=== PATIENT | female | born 1970 | race Caucasian/White ===

== ENCOUNTER 2016-09-17 | Outpatient (CLI) | payer MEDICARE, MEDICAID | END 2016-09-17 17:58 | disposition home or self-care (01) | DX: T83.098A Other mechanical complication of other urinary catheter, initial encounter (principal) | CPT/HCPCS: A0425; A0428 ==

== ENCOUNTER 2016-09-17 | Outpatient (CLI) | payer MEDICARE, MEDICAID | END 2016-09-17 15:16 | disposition critical access hospital (66) | DX: T83.098A Other mechanical complication of other urinary catheter, initial encounter (principal) | CPT/HCPCS: A0425; A0429 ==

== ENCOUNTER 2016-09-17 15:36 | Emergency (ER) | payer MEDICARE, MEDICAID ==
[2016-09-17] MEDS ORDERED: LIDOCAINE JELLY 2% 5 ML TUBE TOP ONE (16:00)
== END 2016-09-17 17:53 | disposition home or self-care (01) ==
DX: T83.098A Other mechanical complication of other urinary catheter, initial encounter (principal); Y84.6 Urinary catheterization as the cause of abnormal reaction of the patient, or of later complication, without mention of misadventure at the time of the procedure; G80.9 Cerebral palsy, unspecified
CPT/HCPCS: 51702; 51705; 99283; J3490

== ENCOUNTER 2016-09-29 | Outpatient (CLI) | payer MEDICARE, MEDICAID | END 2016-09-29 12:19 | disposition critical access hospital (66) | CPT/HCPCS: A0425; A0429 ==

== ENCOUNTER 2016-09-29 | Outpatient (CLI) | payer MEDICARE, MEDICAID | END 2016-09-29 14:43 | disposition home or self-care (01) | CPT/HCPCS: A0425; A0428 ==

== ENCOUNTER 2016-09-29 12:39 | Emergency (ER) | payer MEDICARE, MEDICAID ==
[2016-09-29] MEDS ORDERED: HYOSCYAMINE SL 0.125 MG TABLET SL STA (13:43)
== END 2016-09-29 14:53 | disposition home or self-care (01) ==
DX: R32 Unspecified urinary incontinence (principal); Z93.50 Unspecified cystostomy status
CPT/HCPCS: 51700; 99283; A9270

== ENCOUNTER 2016-10-30 13:12 | Emergency (ER) | payer MEDICARE, MEDICAID ==
[2016-10-30] MEDS ORDERED: HYDROcod/ACETAM 5/325 MG TABLET ONE (13:33)
[2016-10-30] MEDS ORDERED: HYDROcod/ACETAM 5/325 MG TABLET PO STA (13:33)
== END 2016-10-30 13:40 | disposition home or self-care (01) ==
DX: M94.0 Chondrocostal junction syndrome [Tietze] (principal); R03.0 Elevated blood-pressure reading, without diagnosis of hypertension; G80.9 Cerebral palsy, unspecified; Z99.3 Dependence on wheelchair
CPT/HCPCS: 93005; 93010; 99283; 99284; A9270

== ENCOUNTER 2016-12-02 09:04 | Outpatient (CLI) | payer MEDICARE, MEDICAID | END 2016-12-02 09:05 | disposition EMS.NT | DX: Z03.89 Encounter for observation for other suspected diseases and conditions ruled out (principal); V00.811A Fall from moving wheelchair (powered), initial encounter; Y92.480 Sidewalk as the place of occurrence of the external cause ==

== ENCOUNTER 2017-03-16 21:08 | Outpatient (CLI) | payer MEDICARE, MEDICAID | END 2017-03-16 21:09 | disposition critical access hospital (66) | LOC: EMS 21:08 | PROVIDERS: ATTEND Surgery | DX: M79.89 Other specified soft tissue disorders (principal) | CPT/HCPCS: A0425; A0429 ==

== ENCOUNTER 2017-03-16 21:28 | Emergency (ER) | payer MEDICARE, MEDICAID ==
[2017-03-16 21:38] VITALS: BP 150/86
[2017-03-16] MEDS ORDERED: CEPHALEXIN 250 MG Prepack 8 PO ONE ×3 (22:00→22:11)
--- NOTE | 2017-03-16 22:03 | ED Physician Documentation ---
History of Present Illness - Stated complaint Stated Complaint: RLE RED - Chief complaint Chief Complaint: Ext Problem - History obtained from History obtained from: Patient - History of Present Illness Timing: Other (There is a red area to the right medial calf for the last 2 days that got worse today. No significant pain. No fevers or new chills. She would also like her suprapubic catheter changed.) Review of Systems Constitutional: denies: Fever, Chills Cardiac: denies: Chest pain / pressure, Palpitations Respiratory: denies: Dyspnea, Cough PD PAST MEDICAL HISTORY - Past Medical History Cardiovascular: None Respiratory: Asthma, Other Neuro: Cerebral palsy Endocrine/Autoimmune: Other GI: GERD STAVE INSPECTOR: None : Indwelling catheter HEENT: Chronic vision loss Psych: Anxiety Musculoskeletal: Osteoarthritis Derm: Psoriasis - Past Surgical History Past Surgical History: Yes General: EGD Ortho: Other /STAVE INSPECTOR: section, Hysterectomy - Present Medications Home Medications: Ambulatory Orders Medication Instructions Recorded Confirmed Aripiprazole [Abilify] 30 mg PO HS 04/27/13 03/16/17 Bupropion HCl [Wellbutrin Xl] 300 mg PO DAILY 04/27/13 03/16/17 Dexlansoprazole [Dexilant] 60 mg PO DAILY 04/27/13 03/16/17 Propranolol [Inderal] 20 mg PO TID 04/27/13 01/23/17 Enalapril [Vasotec] 5 mg ORAL DAILY 05/14/14 03/16/17 Baclofen 10 mg PO TID PRN 05/04/15 03/16/17 Hydrocortisone 1% Oint 1 gm TP TID #2 oint...g. 07/06/15 01/23/17 [Hydrocortisone] Nystatin Cream [Mycostatin Cream] 1 applic TOP BID PRN #60 g 12/30/15 01/23/17 tiZANidine [Zanaflex] 4 mg PO DAILY 04/09/16 01/23/17 Promethazine [Phenergan] 25 mg PO Q6H PRN #10 tab 05/01/16 01/23/17 Citalopram Hydrobromide [Celexa] 10 mg PO DAILY 08/22/16 03/16/17 Hyoscyamine Sulfate [Levsin-Sl] 0.125 mg SL Q6HR PRN #20 tab.subl 09/29/1601/23 Oxybutynin Chloride [Ditropan Xl] 10 mg PO DAILY 01/23/17 01/23/17 Quetiapine Fumarate [Seroquel Xr] 600 mg PO DAILY PM 01/23/17 01/23/17 Cephalexin [Keflex] 500 mg PO QID #40 capsule 03/16/17 oxyCODONE/ACET 5/325 [Percocet 5 1 tab PO PRN PRN MDD 4 03/16/17 03/16/17 mg/325 mg] - Allergies Allergies/Adverse Reactions: Allergies Allergy/AdvReac Type Severity Reaction Status Date / Time paroxetine HCl * [From Paxil] AdvReac Intermediate Emesis Verified 01/23/17 17: 49 codeine [Codeine] AdvReac Pass Out Verified 01/23/17 17:49 - Social History Does the pt smoke?: No Smoking Status: Never smoker Does the pt drink ETOH?: No Does the pt have substance abuse?: No - Immunizations Immunizations are current?: Yes - POLST Patient has POLST: No PD ED PE NORMAL - Vitals Vital signs reviewed: Yes - General General: Alert and oriented X 3, No acute distress - Abdomen Abdomen: Soft, Non tender - Extremities Extremities: Other (Well-circumscribed area of cellulitis to the right medial calf without calf tenderness. It is consistent with cellulitis, not DVT.) - Neuro Neuro: Alert and oriented X 3, Normal speech - Psych Psych: Normal mood, Normal affect Results - Vitals Vitals: Vital Signs - 24 hr 03/16/17 21:36 Temperature 36.6 C Heart Rate 89 Respiratory 18 Rate Blood Pressure 150/86 H O2 Saturation 98 Oxygen O2 Source Room air Procedures - General procedure General procedure: At the patient's request I personally changed her suprapubic catheter using a similar 18 Mohawk catheter with lidocaine jelly which flushed and drained easily. Departure - Departure Disposition: 01 Home, Self Care Clinical Impression: Chronic indwelling Epps catheter Cellulitis Qualifiers: Site of cellulitis: extremity Site of cellulitis of extremity: lower extremity Laterality: right Qualified Code(s): L03.115 - Cellulitis of right lower limb Condition: Good Record reviewed to determine appropriate education?: Yes Instructions: Cellulitis Dc Prescriptions: Cephalexin [Keflex] 500 mg PO QID #40 capsule Comments: Call your doctor to arrange a follow-up appointment, make the next available appointment. In the interim, return anytime if worse or if new symptoms develop. Your blood pressure was elevated today on check into the emergency department. This does not mean that you have hypertension, it is a common phenomenon to come to the emergency department and have elevated blood pressure. I recommend that she see her primary care physician within the week to have it rechecked when you are feeling better.
[2017-03-16] MEDS ORDERED: LIDOCAINE JELLY 2% 5 ML TUBE TOP ONE (22:31)
== END 2017-03-16 23:20 | disposition home or self-care (01) ==
LOC: EDUNIT# → ED 21:28
DX: L03.115 Cellulitis of right lower limb (principal); R03.0 Elevated blood-pressure reading, without diagnosis of hypertension; J45.909 Unspecified asthma, uncomplicated; G80.9 Cerebral palsy, unspecified; K21.9 Gastro-esophageal reflux disease without esophagitis; M19.90 Unspecified osteoarthritis, unspecified site; Z93.50 Unspecified cystostomy status
CPT/HCPCS: 51705; 99283; J3490

== ENCOUNTER 2017-03-16 23:42 | Outpatient (CLI) | payer MEDICARE, MEDICAID | END 2017-03-16 23:43 | disposition home or self-care (01) | LOC: EMS 23:42 | PROVIDERS: ATTEND Surgery | DX: L03.115 Cellulitis of right lower limb (principal) | CPT/HCPCS: A0425; A0428 ==

== ENCOUNTER 2017-07-14 08:00 | Outpatient (CLI) | payer MEDICARE, MEDICAID | END 2017-07-14 08:01 | disposition home or self-care (01) | LOC: LAB.N 08:00 | PROVIDERS: ATTEND Nurse Practitioner Gerontology | DX: Z53.9 Procedure and treatment not carried out, unspecified reason (principal) | CPT/HCPCS: 36415; 80053; 85025 ==

== ENCOUNTER 2017-07-22 12:33 | Outpatient (CLI) | payer MEDICARE, MEDICAID ==
[2017-07-22 12:47] LABS: BASOPHILS # (AUTO) 0.1 10^3/uL (0.0-0.1); BASOPHILS % (AUTO) 0.8 %; EOSINOPHILS # (AUTO) 0.2 10^3/uL (0.0-0.7); EOSINOPHILS % (AUTO) 2.3 %; HCT - HEMATOCRIT 30.5 % (37.0-47.0); HGB - HEMOGLOBIN 9.6 g/dL (12.0-16.0); LYMPHOCYTES # (AUTO) 1.2 10^3/uL (1.5-3.5); MEAN CORPUSCULAR HEMOGLOBIN 22.6 pg (27.0-31.0); MEAN CORPUSCULAR HGB CONC 31.5 g/dL (32.0-36.0); MEAN CORPUSCULAR VOLUME 71.6 fL (81.0-99.0); MEAN PLATELET VOLUME 8.1 fL (7.9-10.8); MONOCYTES # (AUTO) 0.8 10^3/uL (0.0-1.0); MONOCYTES % (AUTO) 11.4 %; NEUTROPHILS # (AUTO) 4.6 10^3/uL (1.5-6.6); NEUTROPHILS % (AUTO) 67.5 %; RED BLOOD COUNT 4.26 10^6/uL (4.20-5.40); RED CELL DISTRIBUTION WIDTH 17.1 % (12.0-15.0); UNCORRECTED WHITE BLOOD COUNT 6.8 x10^3/uL; WHITE BLOOD COUNT 6.8 x10^3/uL (4.8-10.8)
[2017-07-22 13:00] LABS: ALBUMIN/GLOBULIN RATIO 0.9 (1.0-2.2); BILIRUBIN,TOTAL 0.3 mg/dL (0.2-1.0); CALCIUM 8.8 mg/dL (8.5-10.3); CREATININE 0.7 mg/dL (0.4-1.0); POTASSIUM 4.2 mmol/L (3.5-5.0); TOTAL PROTEIN 7.3 g/dL (6.7-8.2)
== END 2017-07-22 12:34 | disposition home or self-care (01) ==
LOC: LAB 12:33
PROVIDERS: ATTEND Nurse Practitioner Gerontology
DX: N39.0 Urinary tract infection, site not specified (principal)
CPT/HCPCS: 36415; 80053; 85025

== ENCOUNTER 2017-11-12 09:17 | Outpatient (CLI) | payer MEDICARE, MEDICAID | END 2017-11-12 09:18 | disposition critical access hospital (66) | LOC: EMS 09:17 | PROVIDERS: ATTEND Surgery | DX: T83.038A Leakage of other urinary catheter, initial encounter (principal) | CPT/HCPCS: A0425; A0429 ==

== ENCOUNTER 2017-11-12 09:39 | Emergency (ER) | payer MEDICARE, MEDICAID ==
--- NOTE | 2017-11-12 09:45 | ED Physician Documentation ---
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 and so not to do UA - as she is asymptomatic that seems reasonable Review of Systems Constitutional: denies: Fever, Chills GI: denies: Abdominal Pain : reports: Other (cath wont drain) Musculoskeletal: denies: Back pain PD PAST MEDICAL HISTORY - Past Medical History Cardiovascular: None Respiratory: Asthma, Other Neuro: Cerebral palsy Endocrine/Autoimmune: Other GI: GERD 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 : Indwelling catheter HEENT: Chronic vision loss Psych: Anxiety Musculoskeletal: Osteoarthritis Derm: Psoriasis - Past Surgical History Past Surgical History: Yes General: EGD Ortho: Other /SECURITY BUSINESS ANALYST: section, Hysterectomy - Present Medications Home Medications: Ambulatory Orders Medication Instructions Recorded Confirmed Dexlansoprazole [Dexilant] 60 mg PO DAILY 04/27/13 08/28/17 Propranolol [Inderal] 20 mg PO TID 04/27/13 08/28/17 Enalapril [Vasotec] 5 mg ORAL DAILY 05/14/14 08/28/17 Nystatin Cream [Mycostatin Cream] 1 applic TOP BID PRN #60 g 12/30/15 08/28/17 Citalopram Hydrobromide [Celexa] 10 mg PO DAILY 08/22/16 08/28/17 Hyoscyamine Sulfate [Levsin-Sl] 0.125 mg SL Q6HR PRN #20 tab.subl 09/29/1608/28 Oxybutynin Chloride [Ditropan Xl] 10 mg PO DAILY 01/23/17 08/28/17 Quetiapine Fumarate [Seroquel Xr] 300 mg PO DAILY PM 01/23/17 08/28/17 oxyCODONE/ACET 5/325 [Percocet 5 1 tab PO PRN PRN MDD 4 03/16/17 08/28/17 mg/325 mg] Nystatin 1 drops TOP BID PRN 05/08/17 08/28/17 Zolpidem Tartrate [Ambien] 10 mg PO QPM PRN 06/05/17 08/28/17 Topiramate 25 mg PO BID 07/31/17 08/28/17 Zolpidem [Ambien] 1 tab ORAL DAILY 07/31/17 08/28/17 Aripiprazole [Abilify] 20 mg PO DAILY 08/28/17 08/28/17 Hydrocortisone 1% Oint 1 gm TP TID PRN 08/28/17 08/28/17 [Hydrocortisone] buPROPion [Wellbutrin Sr] 150 mg PO BID 08/28/17 08/28/17 Nystatin Cream [Mycostatin Cream] 1 applic TOP BID #60 g 11/12/17 - Allergies Allergies/Adverse Reactions: Allergies Allergy/AdvReac Type Severity Reaction Status Date / Time paroxetine HCl * [From Paxil] AdvReac Intermediate Emesis Verified 01/23/17 17: 49 codeine [Codeine] AdvReac Pass Out Verified 01/23/17 17:49 - Social History Does the pt smoke?: No Smoking Status: Never smoker Does the pt drink ETOH?: No Does the pt have substance abuse?: No - Immunizations Immunizations are current?: Yes - POLST Patient has POLST: No PD ED PE NORMAL - Vitals Vital signs reviewed: Yes - Cardiac Cardiac: RRR - Respiratory Respiratory: No respiratory distress, Clear bilaterally - Abdomen Abdomen: Non tender, Other (no infection around site, urine leaking around) Results - Vitals Vitals: Vital Signs - 24 hr 11/12/17 09:39 Temperature 36.5 C Heart Rate 82 Respiratory 17 Rate Blood Pressure 142/82 H O2 Saturation 97 Oxygen O2 Source Room air PD MEDICAL DECISION MAKING - ED course ED course: cath changed s diff needs BLS transport as she is unable to transfer or sit in a regular wheelchair - per caregiver has a motorized reclining wheelchair at home but cannot sit unassisted - form completed at time of dc pt req refill rx for nystatin cream which was given Departure - Departure Disposition: Home, Self Care Clinical Impression: Urinary catheter change required Condition: Good Instructions: Catheter Suprapubic Care Dc Prescriptions: Nystatin Cream [Mycostatin Cream] 1 applic TOP BID #60 g
[2017-11-12 09:53] VITALS: BP 142/82
[2017-11-12] MEDS ORDERED: LIDOCAINE 2% URO-JET 5 ML SYRINGE UR STA (10:25)
== END 2017-11-12 13:31 | disposition home or self-care (01) ==
LOC: EDUNIT# → ED 09:39
DX: T83.031A Leakage of indwelling urethral catheter, initial encounter (principal); G80.9 Cerebral palsy, unspecified
CPT/HCPCS: 51702; 99283

== ENCOUNTER 2017-11-12 13:33 | Outpatient (CLI) | payer MEDICARE, MEDICAID | END 2017-11-12 13:34 | disposition home or self-care (01) | LOC: EMS 13:33 | PROVIDERS: ATTEND Surgery | DX: G80.9 Cerebral palsy, unspecified (principal) | CPT/HCPCS: A0425; A0428 ==

== ENCOUNTER 2018-02-02 | Outpatient (CLI) | END 2018-02-02 14:35 | disposition home or self-care (01) | CPT/HCPCS: A0425; A0428 ==

== ENCOUNTER 2018-02-02 | Outpatient (CLI) | END 2018-02-02 11:13 | disposition critical access hospital (66) | CPT/HCPCS: A0425; A0429 ==

== ENCOUNTER 2018-02-02 11:35 | Emergency (ER) | payer MEDICARE, MEDICAID ==
[2018-02-02 11:41] VITALS: BP 125/75
--- NOTE | 2018-02-02 12:15 | ED Physician Documentation ---
PD HPI LOWER EXT INJURY - Stated complaint Stated Complaint: LEG BRUISE - Chief complaint Chief Complaint: Ext Problem - History obtained from History obtained from: Patient, Caregiver - History of Present Illness PD HPI LOW EXT INJURY LOCATION: Left, Thigh (caregivers noted bruising of posterior left thigh today. No noted injury. She does require lifts and caregiver rolls for movement so is held on thighs often. She has some pain in legs commonl and has wraps and ankle braces. She has started some physical therapy recently to try to get leg/core strength improved.) Type of injury: Other (no noted injury) Where injury occurred: Home Timing - onset: Today (brusing just noted today) Timing - details: Abrupt onset Worsened by: No: Palpating Associated symptoms: Discolored. 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 : Indwelling catheter HEENT: Chronic vision loss Psych: Anxiety Musculoskeletal: Osteoarthritis Derm: Psoriasis - Past Surgical History Past Surgical History: Yes General: EGD Ortho: Other /TRANSPLANT REGISTERED NURSE: section, Hysterectomy - Present Medications Home Medications: Ambulatory Orders Medication Instructions Recorded Confirmed Dexlansoprazole [Dexilant] 60 mg PO DAILY 04/27/13 08/28/17 Propranolol [Inderal] 20 mg PO TID 04/27/13 08/28/17 Enalapril [Vasotec] 5 mg ORAL DAILY 05/14/14 08/28/17 Nystatin Cream [Mycostatin Cream] 1 applic TOP BID PRN #60 g 12/30/15 08/28/17 Citalopram Hydrobromide [Celexa] 10 mg PO DAILY 08/22/16 08/28/17 Hyoscyamine Sulfate [Levsin-Sl] 0.125 mg SL Q6HR PRN #20 tab.subl 09/29/1608/28 Oxybutynin Chloride [Ditropan Xl] 10 mg PO DAILY 01/23/17 08/28/17 Quetiapine Fumarate [Seroquel Xr] 300 mg PO DAILY PM 01/23/17 08/28/17 oxyCODONE/ACET 5/325 [Percocet 5 1 tab PO PRN PRN MDD 4 03/16/17 08/28/17 mg/325 mg] Nystatin 1 drops TOP BID PRN 05/08/17 08/28/17 Zolpidem Tartrate [Ambien] 10 mg PO QPM PRN 06/05/17 08/28/17 Topiramate 25 mg PO BID 07/31/17 08/28/17 Zolpidem [Ambien] 1 tab ORAL DAILY 07/31/17 08/28/17 Aripiprazole [Abilify] 20 mg PO DAILY 08/28/17 08/28/17 Hydrocortisone 1% Oint 1 gm TP TID PRN 08/28/17 08/28/17 [Hydrocortisone] buPROPion [Wellbutrin Sr] 150 mg PO BID 08/28/17 08/28/17 Nystatin Cream [Mycostatin Cream] 1 applic TOP BID #60 g 11/12/17 - Allergies Allergies/Adverse Reactions: Allergies Allergy/AdvReac Type Severity Reaction Status Date / Time paroxetine HCl * [From Paxil] AdvReac Intermediate Emesis Verified 01/23/17 17: 49 codeine [Codeine] AdvReac Pass Out Verified 01/23/17 17:49 - Social History Does the pt smoke?: No Smoking Status: Never smoker Does the pt drink ETOH?: No Does the pt have substance abuse?: No - Immunizations Immunizations are current?: Yes - POLST Patient has POLST: No PD ED PE NORMAL - Vitals Vital signs reviewed: Yes - General General: Alert and oriented X 3, No acute distress, Well developed/nourished - HEENT HEENT: Atraumatic, Pharynx benign - Neck Neck: Supple, no meningeal sign, No adenopathy - Cardiac Cardiac: RRR, No murmur - Respiratory Respiratory: Clear bilaterally - Abdomen Abdomen: Soft, Non tender - Derm Derm: Normal color, Warm and dry - Extremities Extremities: Other (left posterior thigh with faint to moderate colored bruising mid thigh to gluteal area. Not tender. No noted sores/lesions. ) - Neuro Neuro: Other (general body deconditioning. ) Results - Vitals Vitals: Oxygen O2 Source Room air PD MEDICAL DECISION MAKING - ED course Complexity details: considered differential (the bruising in back of thigh looks soft tissue injury, likely deeper and is now leeching to the surface ( dependently down). She mentioned blood clots and I don't have high suspicion for DVT. Suggested US to evaluate, but she did not want to have her leg wraps removed, as is difficult to have them redone. I feel that is okay, given the low suspicion. ), d/w patient - Sepsis Event Vital Signs: Oxygen O2 Source Room air Departure - Departure Disposition: Home, Self Care Clinical Impression: Superficial bruising of thigh Qualifiers: Encounter type: initial encounter Laterality: left Qualified Code(s): S70.12XA - Contusion of left thigh, initial encounter Condition: Stable Record reviewed to determine appropriate education?: Yes Instructions: ED Contusion Soft Tissue Follow-Up: Errol Marion MD [Primary Care Provider] - Comments: The bruising showing up in the back of the thigh could have been from minor injury with a broken blood vessel even deeper within the muscle that migrated to the surface and showed up now. The injury could have been even a few days ago. It does not look dangerous or problematic. It should gradually resolve over several days to week. It could potentially get slightly darker colored as more blood comes to the surface. Recheck if increasing pain, tenderness, swelling of the leg. Normal activity and therapy/exercise are good as long as nothing is hurting more than usual. Discharge Date/Time: 02/02/18 15:00
== END 2018-02-02 15:00 | disposition home or self-care (01) ==
LOC: ED 11:35
DX: S70.12XA Contusion of left thigh, initial encounter (principal); Z74.01 Bed confinement status
CPT/HCPCS: 99282; 99283

== ENCOUNTER 2018-03-26 17:59 | Outpatient (CLI) | payer MEDICARE, MEDICAID | END 2018-03-26 18:00 | disposition critical access hospital (66) | LOC: EMS 17:59 | PROVIDERS: ATTEND Surgery | DX: T83.018A Breakdown (mechanical) of other urinary catheter, initial encounter (principal) | CPT/HCPCS: A0425; A0429 ==

== ENCOUNTER 2018-03-26 18:20 | Emergency (ER) | payer MEDICARE, MEDICAID ==
--- NOTE | 2018-03-26 19:22 | ED Physician Documentation ---
History of Present Illness - Stated complaint Stated Complaint: BLOCKED CATHETER - Chief complaint Chief Complaint: General - History obtained from History obtained from: Patient - History of Present Illness Timing: Today (She has a neurogenic bladder. She frequently has her catheter become blocked, the current one is 3 weeks old and it stopped working. 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 : Indwelling catheter HEENT: Chronic vision loss Psych: Anxiety Musculoskeletal: Osteoarthritis Derm: Psoriasis - Past Surgical History Past Surgical History: Yes General: EGD Ortho: Other /FILM EDITOR: section, Hysterectomy - Present Medications Home Medications: Ambulatory Orders Medication Instructions Recorded Confirmed Dexlansoprazole [Dexilant] 60 mg PO DAILY 04/27/13 08/28/17 Propranolol [Inderal] 20 mg PO TID 04/27/13 08/28/17 Enalapril [Vasotec] 5 mg ORAL DAILY 05/14/14 08/28/17 Nystatin Cream [Mycostatin Cream] 1 applic TOP BID PRN #60 g 12/30/15 08/28/17 Citalopram Hydrobromide [Celexa] 10 mg PO DAILY 08/22/16 08/28/17 Hyoscyamine Sulfate [Levsin-Sl] 0.125 mg SL Q6HR PRN #20 tab.subl 09/29/1608/28 Oxybutynin Chloride [Ditropan Xl] 10 mg PO DAILY 01/23/17 08/28/17 Quetiapine Fumarate [Seroquel Xr] 300 mg PO DAILY PM 01/23/17 08/28/17 oxyCODONE/ACET 5/325 [Percocet 5 1 tab PO PRN PRN MDD 4 03/16/17 08/28/17 mg/325 mg] Nystatin 1 drops TOP BID PRN 05/08/17 08/28/17 Zolpidem Tartrate [Ambien] 10 mg PO QPM PRN 06/05/17 08/28/17 Topiramate 25 mg PO BID 07/31/17 08/28/17 Zolpidem [Ambien] 1 tab ORAL DAILY 07/31/17 08/28/17 Aripiprazole [Abilify] 20 mg PO DAILY 08/28/17 08/28/17 Hydrocortisone 1% Oint 1 gm TP TID PRN 08/28/17 08/28/17 [Hydrocortisone] buPROPion [Wellbutrin Sr] 150 mg PO BID 08/28/17 08/28/17 Nystatin Cream [Mycostatin Cream] 1 applic TOP BID #60 g 11/12/17 - Allergies Allergies/Adverse Reactions: Allergies Allergy/AdvReac Type Severity Reaction Status Date / Time paroxetine HCl * [From Paxil] AdvReac Intermediate Emesis Verified 01/23/17 17: 49 codeine [Codeine] AdvReac Pass Out Verified 01/23/17 17:49 - Social History Does the pt smoke?: No Smoking Status: Never smoker Does the pt drink ETOH?: No Does the pt have substance abuse?: No - Immunizations Immunizations are current?: Yes - POLST Patient has POLST: No PD ED PE NORMAL - Vitals Vital signs reviewed: Yes - General General: Alert and oriented X 3, No acute distress - Abdomen Abdomen: Normal bowel sounds, Soft, Non tender - Neuro Neuro: Alert and oriented X 3, Normal speech Results - Vitals Vitals: Vital Signs - 24 hr 03/26/18 18:38 Temperature 36.6 C Heart Rate 90 Respiratory 18 Rate Blood Pressure 129/83 H O2 Saturation 100 Oxygen O2 Source Room air PD MEDICAL DECISION MAKING - Sepsis Event Vital Signs: Vital Signs - 24 hr 03/26/18 18:38 Temperature 36.6 C Heart Rate 90 Respiratory 18 Rate Blood Pressure 129/83 H O2 Saturation 100 Oxygen O2 Source Room air Departure - Departure Disposition: 01 Home, Self Care Clinical Impression: Chronic indwelling Epps catheter Epps catheter problem Qualifiers: Encounter type: initial encounter Qualified Code(s): T83.9XXA - Unspecified complication of genitourinary prosthetic device, implant and graft, initial encounter Condition: Good Record reviewed to determine appropriate education?: Yes Instructions: ED Catheter Care Epps
[2018-03-26] MEDS ORDERED: NYSTATIN CREAM 15 GM TUBE TOP ONE (19:31)
[2018-03-26] MEDS ORDERED: LIDOCAINE 2% URO-JET 5 ML SYRINGE UR STA (19:39)
[2018-03-26 20:39] VITALS: BP 128/83
== END 2018-03-26 21:01 | disposition home or self-care (01) ==
LOC: EDUNIT# → ED 18:20
DX: T83.9XXA Unspecified complication of genitourinary prosthetic device, implant and graft, initial encounter (principal)
CPT/HCPCS: 51702; 99283; A9270

== ENCOUNTER 2018-03-26 20:57 | Outpatient (CLI) | payer MEDICARE, MEDICAID | END 2018-03-26 20:58 | disposition home or self-care (01) | LOC: EMS 20:57 | PROVIDERS: ATTEND Surgery | DX: G82.20 Paraplegia, unspecified (principal) | CPT/HCPCS: A0425; A0428 ==

== ENCOUNTER 2018-07-26 14:07 | Outpatient (CLI) | payer MEDICARE, MEDICAID ==
[2018-07-26 14:52] LABS: BASOPHILS % (AUTO) 0.5 %; EOSINOPHILS # (AUTO) 0.1 10^3/uL (0.0-0.7); EOSINOPHILS % (AUTO) 1.9 %; LYMPHOCYTES % (AUTO) 16.5 %; MEAN CORPUSCULAR HEMOGLOBIN 20.4 pg (27.0-31.0); MEAN CORPUSCULAR HGB CONC 30.8 g/dL (32.0-36.0); MEAN CORPUSCULAR VOLUME 66.1 fL (81.0-99.0); MEAN PLATELET VOLUME 7.3 fL (7.9-10.8); MONOCYTES # (AUTO) 0.5 10^3/uL (0.0-1.0); MONOCYTES % (AUTO) 9.3 %; NEUTROPHILS # (AUTO) 4.1 10^3/uL (1.5-6.6); NEUTROPHILS % (AUTO) 71.8 %; PLT - PLATELET COUNT 406 10^3/uL (130-450); RED BLOOD COUNT 4.42 10^6/uL (4.20-5.40); RED CELL DISTRIBUTION WIDTH 17.6 % (12.0-15.0); WHITE BLOOD COUNT 5.8 x10^3/uL (4.8-10.8)
[2018-07-26 16:02] LABS: % IRON SATURATION 4 % (20-50); IRON 14 ug/dL (28-170); TOTAL IRON BINDING CAPACITY 388 ug/dL (250-450); TRANSFERRIN 277 mg/dL (192-382)
== END 2018-07-26 14:08 | disposition home or self-care (01) ==
LOC: LAB 14:07
PROVIDERS: ATTEND Family Medicine
DX: D50.9 Iron deficiency anemia, unspecified (principal)
CPT/HCPCS: 36415; 82728; 83540; 84466; 85025

== ENCOUNTER 2018-07-30 14:38 | Emergency (ER) | payer MEDICARE, MEDICAID ==
[2018-07-30 16:58] VITALS: BP 153/86
--- NOTE | 2018-07-30 17:06 | ED Physician Documentation ---
History of Present Illness - Stated complaint Stated Complaint: FATIGUE/DIZZY - Chief complaint Chief Complaint: General - History obtained from History obtained from: Patient - History of Present Illness Timing: Today (This is a debbie lady with cerebral palsy and indwelling catheter. A few months ago she was prescribed hydroxyzine to take just prior to the catheter replacement and she took that today and then felt dizzy and woozy during the catheter replacement. She is also had issues with anemia lately and iron deficiency but has not been started on iron yet.) Review of Systems Constitutional: reports: Fatigue. 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 : Indwelling catheter HEENT: Chronic vision loss Psych: Anxiety Musculoskeletal: Osteoarthritis Derm: Psoriasis - Past Surgical History Past Surgical History: Yes General: EGD Ortho: Other /INSPECTOR SEMICONDUCTOR WAFER: section, Hysterectomy - Present Medications Home Medications: Ambulatory Orders Medication Instructions Recorded Confirmed Dexlansoprazole [Dexilant] 60 mg PO DAILY 04/27/13 05/07/18 Propranolol [Inderal] 20 mg PO TID 04/27/13 05/07/18 Enalapril [Vasotec] 5 mg ORAL DAILY 05/14/14 05/07/18 Nystatin Cream [Mycostatin Cream] 1 applic TOP BID PRN #60 g 12/30/15 05/07/18 Citalopram Hydrobromide [Celexa] 10 mg PO DAILY 08/22/16 05/07/18 Hyoscyamine Sulfate [Levsin-Sl] 0.125 mg SL Q6HR PRN #20 tab.subl 09/29/16 05/07/18 Oxybutynin Chloride [Ditropan Xl] 10 mg PO DAILY 01/23/17 05/07/18 Quetiapine Fumarate [Seroquel Xr] 300 mg PO DAILY PM 01/23/17 05/07/18 oxyCODONE/ACET 5/325 [Percocet 5 1 tab PO PRN PRN MDD 4 03/16/17 05/07/18 mg/325 mg] Nystatin 1 drops TOP BID PRN 05/08/17 05/07/18 Zolpidem Tartrate [Ambien] 10 mg PO QPM PRN 06/05/17 05/07/18 Topiramate 25 mg PO BID 07/31/17 05/07/18 Zolpidem [Ambien] 1 tab ORAL DAILY 07/31/17 05/07/18 Aripiprazole [Abilify] 20 mg PO DAILY 08/28/17 05/07/18 Hydrocortisone 1% Oint 1 gm TP TID PRN 08/28/17 05/07/18 [Hydrocortisone] buPROPion [Wellbutrin Sr] 150 mg PO BID 08/28/17 05/07/18 Nystatin Cream [Mycostatin Cream] 1 applic TOP BID #60 g 11/12/17 05/07/18 Miconazole Nitrate 1 gm TP TID #5 cream..g. 03/26/18 05/07/18 hydrOXYzine pamoate [Hydroxyzine 25 mg PO ONCE PRN 07/09/18 07/09/18 Pamoate] Ferrous Sulfate 325 mg PO BID #60 tablet 07/30/18 - Allergies Allergies/Adverse Reactions: Allergies Allergy/AdvReac Type Severity Reaction Status Date / Time paroxetine HCl * [From Paxil] AdvReac Intermediate Emesis Verified 07/30/18 15:06 codeine [Codeine] AdvReac Pass Out Verified 07/30/18 15:06 - Social History Does the pt smoke?: No Smoking Status: Never smoker Does the pt drink ETOH?: No Does the pt have substance abuse?: No - Immunizations Immunizations are current?: Yes - POLST Patient has POLST: No PD ED PE NORMAL - Vitals Vital signs reviewed: Yes - General General: Alert and oriented X 3, No acute distress - Neck Neck: Supple, no meningeal sign, No bony TTP - Cardiac Cardiac: RRR, No murmur - Respiratory Respiratory: No respiratory distress, Clear bilaterally - Abdomen Abdomen: Non tender - Neuro Neuro: Alert and oriented X 3, Normal speech Results - Vitals Vitals: Vital Signs - 24 hr 07/30/18 07/30/18 14:59 16:58 Temperature 36.7 C 36.9 C Heart Rate 81 77 Respiratory 20 16 Rate Blood Pressure 135/94 H 153/86 H O2 Saturation 100 98 Oxygen O2 Source Room air - Labs Labs: Laboratory Tests 07/30/18 17:45 Hgb 8.8 L Hct 31.9 L PD MEDICAL DECISION MAKING - ED course ED course: 48-year-old woman with a dizzy episode which likely is multifactorial from chronic anemia which is basically unchanged from prior labs in addition to hydroxyzine use which she takes just before catheter changes. She is started on iron supplementation. Departure - Departure Disposition: 01 Home, Self Care Clinical Impression: Cerebral palsy Qualifiers: Cerebral palsy type: unspecified type Qualified Code(s): G80.9 - Cerebral palsy, unspecified Anemia Qualifiers: Anemia type: iron deficiency Iron deficiency anemia type: unspecified iron deficiency Qualified Code(s): D50.9 - Iron deficiency anemia, unspecified Condition: Good Record reviewed to determine appropriate education?: Yes Instructions: ED Anemia Type Not Specified Follow-Up: Errol Marion MD [Primary Care Provider] - Within 1 week Prescriptions: Ferrous Sulfate 325 mg PO BID #60 tablet
[2018-07-30 17:48] LABS: HGB - HEMOGLOBIN 8.8 g/dL (12.0-16.0)
== END 2018-07-30 18:15 | disposition home or self-care (01) ==
LOC: ED 14:38
DX: D50.9 Iron deficiency anemia, unspecified (principal); G80.9 Cerebral palsy, unspecified; Z96.0 Presence of urogenital implants
CPT/HCPCS: 85014; 85018; 99283

== ENCOUNTER 2018-09-15 12:07 | Outpatient (CLI) | payer MEDICARE, MEDICAID | END 2018-09-15 12:08 | disposition critical access hospital (66) | LOC: EMS 12:07 | PROVIDERS: ATTEND Surgery | DX: R34 Anuria and oliguria (principal); Z93.50 Unspecified cystostomy status; R68.89 Other general symptoms and signs | CPT/HCPCS: A0425; A0429 ==

== ENCOUNTER 2018-09-15 12:28 | Emergency (ER) | payer MEDICARE, MEDICAID ==
[2018-09-15 12:37] VITALS: BP 120/91
[2018-09-15] MEDS ORDERED: LIDOCAINE OINTMENT 5% 35.44 GM TUBE TOP STA (12:47)
--- NOTE | 2018-09-15 12:50 | ED Physician Documentation ---
History of Present Illness - Stated complaint Stated Complaint: CATHETER PROBLEM - Chief complaint Chief Complaint: Abd Pain - History obtained from History obtained from: Patient, EMS - History of Present Illness Timing: Today Pain level max: 0 Pain level now: 0 - Additonal information Additional information: 48-year-old female with chronic indwelling suprapubic catheter states that the catheter is leaking on her today. Requesting it to be changed. Last change was 5 days ago. No fevers. No altered mental status. Nothing makes it better or worse Review of Systems Constitutional: denies: Fever, Chills GI: denies: Abdominal Pain, Vomiting Skin: denies: Rash PD PAST MEDICAL HISTORY - Past Medical History Cardiovascular: None Respiratory: Asthma, Other Endocrine/Autoimmune: Other GI: GERD PEARL DIVER: None : Indwelling catheter HEENT: Chronic vision loss Psych: Anxiety Musculoskeletal: Osteoarthritis Derm: Psoriasis - Past Surgical History Past Surgical History: Yes General: EGD Ortho: Other /PEARL DIVER: section, Hysterectomy - Present Medications Home Medications: Ambulatory Orders Medication Instructions Recorded Confirmed Dexlansoprazole [Dexilant] 60 mg PO DAILY 04/27/13 08/20/18 Propranolol [Inderal] 20 mg PO TID 04/27/13 08/20/18 Enalapril [Vasotec] 5 mg ORAL DAILY 05/14/14 08/20/18 Nystatin Cream [Mycostatin Cream] 1 applic TOP BID PRN #60 g 12/30/15 08/20/18 Citalopram Hydrobromide [Celexa] 10 mg PO DAILY 08/22/16 08/20/18 Hyoscyamine Sulfate [Levsin-Sl] 0.125 mg SL Q6HR PRN #20 tab.subl 09/29/16 08/20/18 Oxybutynin Chloride [Ditropan Xl] 10 mg PO DAILY 01/23/17 08/20/18 Quetiapine Fumarate [Seroquel Xr] 300 mg PO DAILY PM 01/23/17 08/20/18 oxyCODONE/ACET 5/325 [Percocet 5 1 tab PO PRN PRN MDD 4 03/16/17 08/20/18 mg/325 mg] Nystatin 1 drops TOP BID PRN 05/08/17 08/20/18 Zolpidem Tartrate [Ambien] 10 mg PO QPM PRN 06/05/17 08/20/18 Topiramate 25 mg PO BID 07/31/17 08/20/18 Zolpidem [Ambien] 1 tab ORAL DAILY 07/31/17 08/20/18 Aripiprazole [Abilify] 20 mg PO DAILY 08/28/17 08/20/18 Hydrocortisone 1% Oint 1 gm TP TID PRN 08/28/17 08/20/18 [Hydrocortisone] buPROPion [Wellbutrin Sr] 150 mg PO BID 08/28/17 08/20/18 Nystatin Cream [Mycostatin Cream] 1 applic TOP BID #60 g 11/12/17 08/20/18 Miconazole Nitrate 1 gm TP TID #5 cream..g. 03/26/18 08/20/18 hydrOXYzine pamoate [Hydroxyzine 25 mg PO ONCE PRN 07/09/18 08/20/18 Pamoate] Ferrous Sulfate 325 mg PO BID #60 tablet 07/30/18 08/20/18 - Allergies Allergies/Adverse Reactions: Allergies Allergy/AdvReac Type Severity Reaction Status Date / Time paroxetine HCl * [From Paxil] AdvReac Intermediate Emesis Verified 09/15/18 12:36 codeine [Codeine] AdvReac Pass Out Verified 09/15/18 12:36 - Social History Does the pt smoke?: No Smoking Status: Never smoker Does the pt drink ETOH?: No Does the pt have substance abuse?: No - Immunizations Immunizations are current?: Yes - POLST Patient has POLST: No PD ED PE NORMAL - Vitals Vital signs reviewed: Yes - General General: Alert and oriented X 3, No acute distress - Cardiac Cardiac: RRR, Strong equal pulses - Respiratory Respiratory: No respiratory distress, Clear bilaterally - Abdomen Abdomen: Soft, Non tender, Non distended - Female Female : Other (suprapubic catheter in place with slight urinary leakage and candidal rash in the groin.) - Derm Derm: Warm and dry - Neuro Neuro: Alert and oriented X 3 - Psych Psych: Normal mood, Normal affect Results - Vitals Vitals: Vital Signs - 24 hr 09/15/18 12:32 Temperature 36.8 C Heart Rate 73 Respiratory 16 Rate Blood Pressure 120/91 H O2 Saturation 97 Oxygen O2 Source Room air PD MEDICAL DECISION MAKING - ED course Complexity details: considered differential, d/w patient ED course: Leaking suprapubic catheter. This was changed. Tolerated well. We will have her follow-up with her doctor for further care. Patient counseled regarding signs and symptoms for which I believe and urgent re-evaluation would be necessary. Patient with good understanding of and agreement to plan and is c omfortable going home at this time This document was made in part using voice recognition software. While efforts are made to proofread this document, sound alike and grammatical errors may occur. Departure - Departure Disposition: 01 Home, Self Care Clinical Impression: Catheter (urine) change required Condition: Good Instructions: Catheter Suprapubic Care Dc Follow-Up: Selwyn Meza PA-C [Primary Care Provider] - As Needed Comments: Return if you worsen. Follow-up with your doctor for further care.
== END 2018-09-15 15:12 | disposition home or self-care (01) ==
LOC: EDUNIT# → ED 12:28
DX: T83.038A Leakage of other urinary catheter, initial encounter (principal)
CPT/HCPCS: 51702; 99283; A9270

== ENCOUNTER 2018-09-15 15:33 | Outpatient (CLI) | payer MEDICARE, MEDICAID | END 2018-09-15 15:34 | disposition home or self-care (01) | LOC: EMS 15:33 | PROVIDERS: ATTEND Surgery | DX: T83.010A Breakdown (mechanical) of cystostomy catheter, initial encounter (principal); Y73.8 Miscellaneous gastroenterology and urology devices associated with adverse incidents, not elsewhere classified; E66.9 Obesity, unspecified; G82.20 Paraplegia, unspecified; M24.50 Contracture, unspecified joint | CPT/HCPCS: A0425; A0428 ==

== ENCOUNTER 2019-05-29 06:29 | Outpatient (CLI) | payer MEDICARE, MEDICAID | END 2019-05-29 06:30 | disposition critical access hospital (66) | LOC: EMS 06:29 | PROVIDERS: ATTEND Surgery | DX: R10.9 Unspecified abdominal pain (principal); T83.098A Other mechanical complication of other urinary catheter, initial encounter | CPT/HCPCS: A0425; A0429 ==

== ENCOUNTER 2019-05-29 06:31 | Emergency (ER) | payer MEDICARE, MEDICAID ==
--- NOTE | 2019-05-29 07:20 | ED Physician Documentation ---
PD HPI FEMALE - Stated complaint Stated Complaint: CATHETER ISSUE - Chief complaint Chief Complaint: General - History obtained from History obtained from: Patient, Caregiver - History of Present Illness Timing - onset: Today Timing - duration: Days (1) Timing - details: Abrupt onset Severity Comments: moderate leakage of urine from urethra, patient has a suprapubic catheter Associated symptoms: Urinary frequency. No: Fever, Abdominal pain, Pelvic pain, Vaginal pain, Vaginal bleeding, Vaginal discharge, Dysuria, Hematuria Contributing factors: Other (patient has a suprapubic catheter in place, unsure of last time it was changed) Similar symptoms before: Other (hx of bladder incontinence with suprapubic cahteter) Recently seen: Not recently seen - Treatment prior to arrival Treatment prior to arrival: none Review of Systems Ten Systems: 10 systems reviewed and negative Constitutional: denies: Fever Cardiac: reports: Reviewed and negative Respiratory: reports: Reviewed and negative GI: reports: Reviewed and negative : reports: Frequency, Incontinent. 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 : Indwelling catheter HEENT: Chronic vision loss Psych: Anxiety Musculoskeletal: Osteoarthritis Derm: Psoriasis - Past Surgical History Past Surgical History: Yes General: EGD Ortho: Other /BEAM BUILDER: section, Hysterectomy - Present Medications Home Medications: Ambulatory Orders Medication Instructions Recorded Confirmed Dexlansoprazole [Dexilant] 60 mg PO DAILY 04/27/13 04/29/19 Propranolol [Inderal] 20 mg PO TID 04/27/13 04/29/19 Enalapril [Vasotec] 5 mg ORAL DAILY 05/14/14 04/29/19 Nystatin Cream [Mycostatin Cream] 1 applic TOP BID PRN #60 g 12/30/15 04/29/19 Citalopram Hydrobromide [Celexa] 10 mg PO DAILY 08/22/16 04/29/19 Hyoscyamine Sulfate [Levsin-Sl] 0.125 mg SL Q6HR PRN #20 tab.subl 09/29/16 04/29/19 Oxybutynin Chloride [Ditropan Xl] 10 mg PO DAILY 01/23/17 04/29/19 Quetiapine Fumarate [Seroquel Xr] 300 mg PO DAILY PM 01/23/17 04/29/19 oxyCODONE/ACET 5/325 [Percocet 5 1 - 2 tab PO PRN PRN MDD 4 03/16/17 04/29/19 mg/325 mg] Zolpidem Tartrate [Ambien] 10 mg PO QPM PRN 06/05/17 04/29/19 Topiramate 25 mg PO BID 07/31/17 04/29/19 Aripiprazole [Abilify] 20 mg PO DAILY 08/28/17 04/29/19 Hydrocortisone 1% Oint 1 gm TP TID PRN 08/28/17 04/29/19 [Hydrocortisone] buPROPion [Wellbutrin Sr] 150 mg PO BID 08/28/17 04/29/19 Miconazole Nitrate 1 gm TP TID #5 cream..g. 03/26/18 04/29/19 hydrOXYzine pamoate [Hydroxyzine 25 mg PO ONCE PRN 07/09/18 04/29/19 Pamoate] Ferrous Sulfate 325 mg PO BID #60 tablet 07/30/18 04/29/19 Loperamide [Imodium] 2 mg PO TID PRN 04/29/19 04/29/19 - Allergies Allergies/Adverse Reactions: Allergies Allergy/AdvReac Type Severity Reaction Status Date / Time paroxetine HCl * [From Paxil] AdvReac Intermediate Emesis Verified 05/29/19 06:48 codeine [Codeine] AdvReac Pass Out Verified 05/29/19 06:48 - Social History Does the pt smoke?: No Smoking Status: Never smoker Does the pt drink ETOH?: No Does the pt have substance abuse?: No - Immunizations Immunizations are current?: Yes - POLST Patient has POLST: No PD ED PE NORMAL - Vitals Vital signs reviewed: Yes - General General: Alert and oriented X 3, No acute distress, Well developed/nourished - HEENT HEENT: Atraumatic - Neck Neck: Supple, no meningeal sign - Cardiac Cardiac: RRR - Respiratory Respiratory: No respiratory distress - Abdomen Abdomen: Soft, Non tender, Non distended - Female Female : Deferred - Rectal Rectal: Deferred - Derm Derm: Normal color, Warm and dry, Other (small area of red rash around the suprapubic catheter, nontender) - Extremities Extremities: No deformity - Neuro Neuro: Alert and oriented X 3 Eye Opening: Spontaneous Motor: Obeys Commands Verbal: Oriented GCS Score: 15 - Psych Psych: Normal mood, Normal affect Results - Vitals Vitals: Vital Signs - 24 hr 05/29/19 06:36 Temperature 36.5 C Heart Rate 81 Respiratory 18 Rate Blood Pressure 139/79 H O2 Saturation 98 Oxygen O2 Source Room air Procedures - General procedure General procedure: Replaced suprapubic catheter, 18 wallisian with new 18 wallisian catheter using sterile technique. No complications. Flushed the catheter which released a clot. Pt is producing clear urine in the leg bag. PD MEDICAL DECISION MAKING - ED course Complexity details: reviewed results, re-evaluated patient, considered differential, d/w patient, other (d/w caregiver) ED course: clogged catheter, UTI, urinary retention 49 y/o F with suprapubic catheter, unsure of last changing. Also has CP and is morbidly obese. Hx of chronic UTIs, just finished antibiotics. Suprapubic catheter is blocked here by a blood clot, it was replaced as the pt states it is due to be changed. I discussed checking a urine sample for a UTI but she states she does not want antibiotics regardless, does not feel she has a UTI. Her catheter is chronically contaminated. Pt and caregiver are competent to make decisions. I feel this is reasonable. Pt is stable for discharge back to her home. Departure - Departure Disposition: 01 Home, Self Care Clinical Impression: Suprapubic catheter dysfunction Qualifiers: Encounter type: initial encounter Qualified Code(s): T83.010A - Breakdown (mechanical) of cystostomy catheter, initial encounter Condition: Stable Record reviewed to determine appropriate education?: Yes
[2019-05-29] MEDS ORDERED: LIDOCAINE JELLY 2% 5 ML TUBE TOP STA (07:57)
[2019-05-29 10:44] VITALS: BP 132/74
== END 2019-05-29 10:43 | disposition home or self-care (01) ==
LOC: EDUNIT# → ED 06:31
DX: T83.010A Breakdown (mechanical) of cystostomy catheter, initial encounter (principal); Y84.6 Urinary catheterization as the cause of abnormal reaction of the patient, or of later complication, without mention of misadventure at the time of the procedure; G80.9 Cerebral palsy, unspecified; E66.01 Morbid (severe) obesity due to excess calories; Z68.41 Body mass index [BMI] 40.0-44.9, adult
CPT/HCPCS: 51705; 51798; 99283; J3490

== ENCOUNTER 2019-05-29 10:48 | Outpatient (CLI) | payer MEDICARE, MEDICAID | END 2019-05-29 10:49 | disposition home or self-care (01) | LOC: EMS 10:48 | PROVIDERS: ATTEND Surgery | DX: T83.098A Other mechanical complication of other urinary catheter, initial encounter (principal); E66.01 Morbid (severe) obesity due to excess calories; G80.9 Cerebral palsy, unspecified | CPT/HCPCS: A0425; A0428 ==

== ENCOUNTER 2019-06-06 20:13 | Outpatient (CLI) | payer MEDICARE, MEDICAID | END 2019-06-06 20:14 | disposition critical access hospital (66) | LOC: EMS 20:13 | PROVIDERS: ATTEND Surgery | DX: T83.030A Leakage of cystostomy catheter, initial encounter (principal) | CPT/HCPCS: A0425; A0429 ==

== ENCOUNTER 2019-06-06 20:33 | Emergency (ER) | payer MEDICARE, MEDICAID ==
--- NOTE | 2019-06-06 20:39 | ED Physician Documentation ---
PD HPI FEMALE - Stated complaint Stated Complaint: BLOCKED CATHETER - History obtained from History obtained from: Patient, EMS - History of Present Illness Timing - onset: Today Timing - details: Abrupt onset Pain level max: 0 Associated symptoms: No: Fever, Abdominal pain Recently seen: Emergency Dept (earlier this month for same) - Additional information Additional information: c/o chronic indwelling suprapubic butcher catheter is leaking at insertion site since earlier this evening. She also feels that the urine output has been abnormally thick and cloudy past 1-2 days. She asks that I use a cath kit she has brought with her when changing the catheter. 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 : Indwelling catheter HEENT: Chronic vision loss Psych: Anxiety Musculoskeletal: Osteoarthritis Derm: Psoriasis - Past Surgical History Past Surgical History: Yes General: EGD Ortho: Other /POULTRY BUYER: section, Hysterectomy - Present Medications Home Medications: Ambulatory Orders Medication Instructions Recorded Confirmed Dexlansoprazole [Dexilant] 60 mg PO DAILY 04/27/13 04/29/19 Propranolol [Inderal] 20 mg PO TID 04/27/13 04/29/19 Enalapril [Vasotec] 5 mg ORAL DAILY 05/14/14 04/29/19 Nystatin Cream [Mycostatin Cream] 1 applic TOP BID PRN #60 g 12/30/15 04/29/19 Citalopram Hydrobromide [Celexa] 10 mg PO DAILY 08/22/16 04/29/19 Hyoscyamine Sulfate [Levsin-Sl] 0.125 mg SL Q6HR PRN #20 tab.subl 09/29/16 04/29/19 Oxybutynin Chloride [Ditropan Xl] 10 mg PO DAILY 01/23/17 04/29/19 Quetiapine Fumarate [Seroquel Xr] 300 mg PO DAILY PM 01/23/17 04/29/19 oxyCODONE/ACET 5/325 [Percocet 5 1 - 2 tab PO PRN PRN MDD 4 03/16/17 04/29/19 mg/325 mg] Zolpidem Tartrate [Ambien] 10 mg PO QPM PRN 06/05/17 04/29/19 Topiramate 25 mg PO BID 07/31/17 04/29/19 Aripiprazole [Abilify] 20 mg PO DAILY 08/28/17 04/29/19 Hydrocortisone 1% Oint 1 gm TP TID PRN 08/28/17 04/29/19 [Hydrocortisone] buPROPion [Wellbutrin Sr] 150 mg PO BID 08/28/17 04/29/19 Miconazole Nitrate 1 gm TP TID #5 cream..g. 03/26/18 04/29/19 hydrOXYzine pamoate [Hydroxyzine 25 mg PO ONCE PRN 07/09/18 04/29/19 Pamoate] Ferrous Sulfate 325 mg PO BID #60 tablet 07/30/18 04/29/19 Loperamide [Imodium] 2 mg PO TID PRN 04/29/19 04/29/19 Tolnaftate [Tinactin] 108 gm TP BID #1 powder 05/29/19 Amox/Clav 875/125 [Augmentin] 1 each PO Q12H #14 tablet 06/06/19 - Allergies Allergies/Adverse Reactions: Allergies Allergy/AdvReac Type Severity Reaction Status Date / Time paroxetine HCl * [From Paxil] AdvReac Intermediate Emesis Verified 05/29/19 06:48 codeine [Codeine] AdvReac Pass Out Verified 05/29/19 06:48 - Social History Does the pt smoke?: No Smoking Status: Never smoker Does the pt drink ETOH?: No Does the pt have substance abuse?: No - Immunizations Immunizations are current?: Yes - POLST Patient has POLST: No PD ED PE NORMAL - Vitals Vital signs reviewed: Yes - General General: Alert and oriented X 3, No acute distress, Well developed/nourished - Abdomen Abdomen: Soft, Non tender, Other (suprapubic catheter site has trace erythema; there is scant drainage from site c/w urine leakage. There is also a mild foul odor noted without obvious discharge. The urine in the bag and tubing of the catheter system is cloudy) Results - Vitals Vitals: Vital Signs - 24 hr 06/06/19 06/06/19 20:36 22:30 Temperature 37.2 C 37 C Heart Rate 67 80 Respiratory 18 17 Rate Blood Pressure 131/113 H 116/91 H O2 Saturation 98 100 Oxygen O2 Source Room air - Labs Labs: Laboratory Tests 06/06/19 21:22 Urine Color LT RED Urine Clarity CLOUDY Urine pH 8.5 H Ur Specific [place] 1.010 Urine Protein 100 H Urine Glucose (UA) NEGATIVE Urine Ketones NEGATIVE Urine Occult Blood LARGE H Urine Nitrite POSITIVE H Urine Bilirubin NEGATIVE Urine Urobilinogen 0.2 (NORMAL) Ur Leukocyte Esterase MODERATE H Urine RBC 11-25 H Urine WBC 6-10 H Ur Squamous Epith Cells NONE SEEN Urine Bacteria None Seen Ur Microscopic Review INDICATED Urine Culture Comments INDICATED Procedures - General procedure General procedure: catheter change (suprapubic): using sterile technique, existing suprapubic catheter removed and new 18 Fr catheter inserted without difficulty or resistance. Good urine flow with insertion. PD MEDICAL DECISION MAKING - ED course Complexity details: reviewed old records, considered differential, d/w patient Departure - Departure Disposition: Home, Self Care Clinical Impression: Urinary catheter change required, Chronic indwelling Butcher catheter, Suprapubic catheter dysfunction Condition: Good Instructions: ED Catheter Care Butcher, ED UTI Cystitis Female Follow-Up: Selwyn Meza PA-C [Primary Care Provider] - Prescriptions: Amox/Clav 875/125 [Augmentin] 1 each PO Q12H #14 tablet Comments: Contact your urologist's office to let them know of this visit; if your urine culture is positive for pseudomonas (this will be figured out in approximately 2 days), it will be very challenging to choose an appropriate antibiotic, as there are few oral antibiotics that work on pseudomonas and you indicate you cannot take levaquin (one of the few oral options); thus, if your culture is positive for pseudomonas, your urologist would be the ideal specialist to decide which antibiotic (if any) is required. Discharge Date/Time: 06/06/19 22:30
[2019-06-06] MEDS ORDERED: LIDOCAINE 2% URO-JET 5 ML SYRINGE UR STA (20:56)
[2019-06-06] MEDS ORDERED: AMOX/CLAV 875 MG/125 MG TABLET PO STA (21:20)
[2019-06-06 21:40] LABS: GLUCOSE, URINE (UA) NEGATIVE (NEGATIVE); KETONES,URINE (UA) NEGATIVE (NEGATIVE); LEUKOCYTE ESTERASE, URINE MODERATE (NEGATIVE); NITRITE,URINE POSITIVE (NEGATIVE); OCCULT BLOOD,URINE LARGE (NEGATIVE); PH,URINE 8.5 PH (5.0-7.5); PROTEIN,URINE 100 mg/dL (NEGATIVE); UROBILINOGEN,URINE 0.2 (NORMAL) E.U./dL (NORMAL)
[2019-06-06 21:44] LABS: BILIRUBIN,URINE NEGATIVE (NEGATIVE); CLARITY,URINE CLOUDY (CLEAR); ICTOTEST,URINE NEGATIVE
[2019-06-06 21:45] LABS: BACTERIA,URINE None Seen /HPF (None Seen); SQUAMOUS EPITHELIAL CELL,UR NONE SEEN (<= Few)
[2019-06-06 22:31] VITALS: BP 116/91
== END 2019-06-06 22:30 | disposition home or self-care (01) ==
LOC: ED 20:33
DX: T83.038A Leakage of other urinary catheter, initial encounter (principal)
CPT/HCPCS: 51102; 81001; 87086; 87181; 99283; A9270; 81003

== ENCOUNTER 2019-06-06 22:33 | Outpatient (CLI) | payer MEDICARE, MEDICAID | END 2019-06-06 22:34 | disposition home or self-care (01) | LOC: EMS 22:33 | PROVIDERS: ATTEND Surgery | DX: T83.090A Other mechanical complication of cystostomy catheter, initial encounter (principal); G80.9 Cerebral palsy, unspecified; E66.01 Morbid (severe) obesity due to excess calories | CPT/HCPCS: A0425; A0428 ==

== ENCOUNTER 2019-08-25 01:46 | Outpatient (CLI) | payer MEDICARE, MEDICAID | END 2019-08-25 01:47 | disposition critical access hospital (66) | LOC: EMS 01:46 | PROVIDERS: ATTEND Surgery | DX: T83.098A Other mechanical complication of other urinary catheter, initial encounter (principal); Y84.6 Urinary catheterization as the cause of abnormal reaction of the patient, or of later complication, without mention of misadventure at the time of the procedure; Y92.039 Unspecified place in apartment as the place of occurrence of the external cause; Z99.3 Dependence on wheelchair | CPT/HCPCS: A0425; A0429 ==

== ENCOUNTER 2019-08-25 02:03 | Emergency (ER) | payer MEDICARE, MEDICAID ==
[2019-08-25 02:12] VITALS: BP 103/79
[2019-08-25 03:19] LABS: BASOPHILS % (AUTO) 0.4 %; EOSINOPHILS # (AUTO) 0.1 10^3/uL (0.0-0.7); EOSINOPHILS % (AUTO) 1.9 %; LYMPHOCYTES # (AUTO) 1.6 10^3/uL (1.5-3.5); LYMPHOCYTES % (AUTO) 23.6 %; MEAN CORPUSCULAR HEMOGLOBIN 25.2 pg (27.0-31.0); MEAN CORPUSCULAR HGB CONC 30.2 g/dL (32.0-36.0); MEAN CORPUSCULAR VOLUME 83.5 fL (81.0-99.0); MONOCYTES # (AUTO) 0.6 10^3/uL (0.0-1.0); NEUTROPHILS # (AUTO) 4.4 10^3/uL (1.5-6.6); NEUTROPHILS % (AUTO) 64.8 %; PLT - PLATELET COUNT 309 10^3/uL (130-450); RED BLOOD COUNT 4.36 10^6/uL (4.20-5.40); RED CELL DISTRIBUTION WIDTH 15.7 % (12.0-15.0); WHITE BLOOD COUNT 6.9 x10^3/uL (4.8-10.8)
--- NOTE | 2019-08-25 03:27 | ED Physician Documentation ---
PD HPI FEMALE - Stated complaint Stated Complaint: CATH ISSUE - Chief complaint Chief Complaint: Abd Pain - History obtained from History obtained from: Patient, Family, EMS - History of Present Illness Timing - onset: Today Timing - duration: Hours Timing - details: Gradual onset, Still present Associated symptoms: Other (catheter problem) Similar symptoms before: Diagnosis (catheter obstruction) Recently seen: Not recently seen - Additional information Additional information: 57-year-old female with a history of severe cerebral palsy who has a full-time caregiver and is bed confined and has a suprapubic catheter in place for neurogenic bladder has had some leaking through the urethra which is a usual indication that her catheter is beginning to clog off. She has an appointment to have her catheter changed tomorrow. She has come into the emergency department this evening by ambulance with concerns about her catheter and some irritation she has in her right groin where she has some skin breakdown holes in her skin and a knot. She has an appointment to see her doctor about this next week but feels that she should get treatment sooner. 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 : Indwelling catheter HEENT: Chronic vision loss Psych: Anxiety Musculoskeletal: Osteoarthritis Derm: Psoriasis - Past Surgical History Past Surgical History: Yes General: EGD Ortho: Other /DOCUMENTATION CONSULTANT: section, Hysterectomy - Present Medications Home Medications: Ambulatory Orders Medication Instructions Recorded Confirmed Dexlansoprazole [Dexilant] 60 mg PO DAILY 04/27/13 08/05/19 Propranolol [Inderal] 20 mg PO TID 04/27/13 08/05/19 Enalapril [Vasotec] 5 mg ORAL DAILY 05/14/14 08/05/19 Nystatin Cream [Mycostatin Cream] 1 applic TOP BID PRN #60 g 12/30/15 08/05/19 Citalopram Hydrobromide [Celexa] 10 mg PO DAILY 08/22/16 08/05/19 Oxybutynin Chloride [Ditropan Xl] 10 mg PO DAILY 01/23/17 08/05/19 Quetiapine Fumarate [Seroquel Xr] 300 mg PO DAILY PM 01/23/17 08/05/19 oxyCODONE/ACET 5/325 [Percocet 5 1 - 2 tab PO PRN PRN MDD 4 03/16/17 08/05/19 mg/325 mg] Zolpidem Tartrate [Ambien] 10 mg PO QPM PRN 06/05/17 08/05/19 Topiramate 25 mg PO BID 07/31/17 08/05/19 Aripiprazole [Abilify] 20 mg PO DAILY 08/28/17 08/05/19 Hydrocortisone 1% Oint 1 gm TP TID PRN 08/28/17 08/05/19 [Hydrocortisone] buPROPion [Wellbutrin Sr] 150 mg PO BID 08/28/17 08/05/19 Miconazole Nitrate 1 gm TP TID #5 cream..g. 03/26/18 08/05/19 hydrOXYzine pamoate [Hydroxyzine 25 mg PO ONCE PRN 07/09/18 08/05/19 Pamoate] Ferrous Sulfate 325 mg PO BID #60 tablet 07/30/18 08/05/19 Loperamide [Imodium] 2 mg PO TID PRN 04/29/19 08/05/19 Tolnaftate [Tinactin] 108 gm TP BID #1 powder 05/29/19 08/05/19 Fluconazole [Diflucan] 150 mg PO DAILY #14 tablet 08/25/19 Sulfamethoxazole/Trimethoprim 1 each PO BID #14 tablet 08/25/19 [Sulfamethoxazole-Tmp Ds Tablet] - Allergies Allergies/Adverse Reactions: Allergies Allergy/AdvReac Type Severity Reaction Status Date / Time paroxetine HCl * [From Paxil] AdvReac Intermediate Emesis Verified 08/25/19 02:12 codeine [Codeine] AdvReac Pass Out Verified 08/25/19 02:12 - Social History Does the pt smoke?: No Smoking Status: Never smoker Does the pt drink ETOH?: No Does the pt have substance abuse?: No - Immunizations Immunizations are current?: Yes - POLST Patient has POLST: No PD ED PE NORMAL - Vitals Vital signs reviewed: Yes - General General: Alert and oriented X 3, No acute distress, Other (49-year-old female supine in bed with amblyopia is talkative and interactive.) - HEENT HEENT: Atraumatic - Neck Neck: Supple, no meningeal sign - Cardiac Cardiac: RRR, No murmur - Respiratory Respiratory: No respiratory distress, Clear bilaterally - Abdomen Abdomen: Soft, Non tender, Other (There is a suprapubic cath that has cloudy tubing and clear urine. There is no inflamation to the insertion site. ) - Derm Derm: Normal color, Warm and dry - Extremities Extremities: Other (The patient has atrophy and minimal swelling to the lower ext bilat. She does not take her shoes off. She has an area of skin breakdown in the right inguinal area with deep holes without drainage. Between 2 holes there is a "knot" under the skin without fluctuance consistent with a developing abscess. ) - Neuro Neuro: Alert and oriented X 3 Eye Opening: Spontaneous Motor: Obeys Commands Verbal: Oriented GCS Score: 15 - Psych Psych: Normal mood, Normal affect Results - Vitals Vitals: Vital Signs - 24 hr 08/25/19 02:05 Temperature 35.9 C L Heart Rate 86 Respiratory 20 Rate Blood Pressure 103/79 O2 Saturation 100 Oxygen O2 Source Room air - EKG (time done) 0315 Rate: Rate (enter#) (78) QRS: Low voltage Compare to prior EKG: Unchanged from prior EKG (SPT 10-30-2016 no significant change. ) Computer interpretation: Agree with computer - Labs Labs: Laboratory Tests 08/25/19 08/25/19 03:10 03:10 WBC 6.9 RBC 4.36 Hgb 11.0 L Hct 36.4 L MCV 83.5 MCH 25.2 L MCHC 30.2 L RDW 15.7 H Plt Count 309 MPV 10.0 Neut # (Auto) 4.4 Lymph # (Auto) 1.6 [place] # (Auto) 0.6 Eos # (Auto) 0.1 Baso # (Auto) 0.0 Absolute Nucleated RBC 0.00 Nucleated RBC % 0.0 Sodium 135 Potassium 3.6 Chloride 100 L Carbon Dioxide 27 Anion Gap 8.0 BUN 9 Creatinine 0.5 Estimated GFR (MDRD) 131 Glucose 104 H Calcium 9.0 Magnesium 1.9 Total Bilirubin 0.6 AST 15 ALT 10 Alkaline Phosphatase 89 Total Protein 8.2 Albumin 3.4 Globulin 4.8 H Albumin/Globulin Ratio 0.7 L Lipase 31 PD MEDICAL DECISION MAKING - ED course Complexity details: reviewed results, re-evaluated patient, considered differential, d/w patient, d/w family ED course: 49-year-old female with severe cerebral palsy and an indwelling suprapubic thai ter request her catheter changed out and this is performed by the RN. The patient also has an area in the right inguinal area with significant yeast dermatitis skin breakdown and a developing abscess between 2 areas of skin breakdown. She is administered Diflucan 150 mg orally and sulfamethoxazole trimethoprim. There is concern as patient is on other QT prolonging medications and her electrolytes are checked and are okay as is her QT interval on her electrocardiogram. Departure - Departure Disposition: 01 Home, Self Care Clinical Impression: Urinary catheter change required, Yeast dermatitis, Abscess Condition: Stable Instructions: ED Candidiasis Cutaneous, ED Staph Infec Abx Tx Only, ED Catheter Care Epps Follow-Up: Errol Marion MD [Credentialed Staff Provider] - Prescriptions: Fluconazole [Diflucan] 150 mg PO DAILY #14 tablet Sulfamethoxazole/Trimethoprim [Sulfamethoxazole-Tmp Ds Tablet] 1 each PO BID #14 tablet
[2019-08-25 03:30] LABS: ALBUMIN 3.4 g/dL (3.2-5.5); ALBUMIN/GLOBULIN RATIO 0.7 (1.0-2.2); BILIRUBIN,TOTAL 0.6 mg/dL (0.2-1.0); CREATININE 0.5 mg/dL (0.4-1.0); MAGNESIUM 1.9 mg/dL (1.7-2.8); TOTAL PROTEIN 8.2 g/dL (6.7-8.2)
[2019-08-25] MEDS ORDERED: FLUCONAZOLE 100 MG TABLET PO STA (03:43)
[2019-08-25] MEDS ORDERED: LIDOCAINE 2% URO-JET 5 ML SYRINGE UR STA (04:25)
[2019-08-25] MEDS ORDERED: SULFAMETH/TRIMETH DS 800/160 MG TABLET PO STA (05:23)
== END 2019-08-25 06:01 | disposition home or self-care (01) ==
LOC: EDUNIT# → ED 02:03
DX: T83.030A Leakage of cystostomy catheter, initial encounter (principal); Y84.6 Urinary catheterization as the cause of abnormal reaction of the patient, or of later complication, without mention of misadventure at the time of the procedure; L02.214 Cutaneous abscess of groin; L30.8 Other specified dermatitis; B37.2 Candidiasis of skin and nail; G80.9 Cerebral palsy, unspecified; N31.9 Neuromuscular dysfunction of bladder, unspecified; H53.009 Unspecified amblyopia, unspecified eye
CPT/HCPCS: 36415; 51702; 80053; 83690; 83735; 85025; 93005; 99283; 99284; A9270

== ENCOUNTER 2019-08-25 06:02 | Outpatient (CLI) | payer MEDICARE, MEDICAID | END 2019-08-25 06:03 | disposition home or self-care (01) | LOC: EMS 06:02 | PROVIDERS: ATTEND Surgery | DX: Z74.01 Bed confinement status (principal); G80.9 Cerebral palsy, unspecified | CPT/HCPCS: A0425; A0428 ==

== ENCOUNTER 2019-09-03 10:37 | Emergency (ER) | payer MEDICARE, MEDICAID ==
--- NOTE | 2019-09-03 13:48 | ED Physician Documentation ---
PD HPI WOUND RECHECK - Stated complaint Stated Complaint: ABSESS - Chief complaint Chief Complaint: Wound - Additional information Additional information: This is a 49-year-old female with a history of cerebral palsy, is wheelchair- bound, resents for a wound check. She was seen last week and she had some irritation in her inguinal region, there is concern that she might have an, she was given Bactrim which she is taken the courses antibiotic and she states that is improved but she continues have some irritation in her groin, she wanted to make sure that it was not progressing to an abscess. She has not any fever or chills, otherwise feels well. Review of Systems Constitutional: denies: Fever Skin: reports: Lesions PD PAST MEDICAL HISTORY - Past Medical History Past Medical History: Yes Cardiovascular: None Respiratory: Asthma, Other Neuro: None Endocrine/Autoimmune: Other GI: GERD TELEVISION MAINTENANCE MAN: None : Indwelling catheter HEENT: Chronic vision loss Psych: Anxiety Musculoskeletal: Osteoarthritis Derm: Psoriasis - Past Surgical History Past Surgical History: Yes General: EGD Ortho: Other /TELEVISION MAINTENANCE MAN: section, Hysterectomy - Present Medications Home Medications: Ambulatory Orders Medication Instructions Recorded Confirmed Dexlansoprazole [Dexilant] 60 mg PO DAILY 04/27/13 08/05/19 Propranolol [Inderal] 20 mg PO TID 04/27/13 08/05/19 Enalapril [Vasotec] 5 mg ORAL DAILY 05/14/14 08/05/19 Nystatin Cream [Mycostatin Cream] 1 applic TOP BID PRN #60 g 12/30/15 08/05/19 Citalopram Hydrobromide [Celexa] 10 mg PO DAILY 08/22/16 08/05/19 Oxybutynin Chloride [Ditropan Xl] 10 mg PO DAILY 01/23/17 08/05/19 Quetiapine Fumarate [Seroquel Xr] 300 mg PO DAILY PM 01/23/17 08/05/19 oxyCODONE/ACET 5/325 [Percocet 5 1 - 2 tab PO PRN PRN MDD 4 03/16/17 08/05/19 mg/325 mg] Zolpidem Tartrate [Ambien] 10 mg PO QPM PRN 06/05/17 08/05/19 Topiramate 25 mg PO BID 07/31/17 08/05/19 Aripiprazole [Abilify] 20 mg PO DAILY 08/28/17 08/05/19 Hydrocortisone 1% Oint 1 gm TP TID PRN 08/28/17 08/05/19 [Hydrocortisone] buPROPion [Wellbutrin Sr] 150 mg PO BID 08/28/17 08/05/19 Miconazole Nitrate 1 gm TP TID #5 cream..g. 03/26/18 08/05/19 hydrOXYzine pamoate [Hydroxyzine 25 mg PO ONCE PRN 07/09/18 08/05/19 Pamoate] Ferrous Sulfate 325 mg PO BID #60 tablet 07/30/18 08/05/19 Loperamide [Imodium] 2 mg PO TID PRN 04/29/19 08/05/19 Tolnaftate [Tinactin] 108 gm TP BID #1 powder 05/29/19 08/05/19 Fluconazole [Diflucan] 150 mg PO DAILY #14 tablet 08/25/19 Sulfamethoxazole/Trimethoprim 1 each PO BID #14 tablet 08/25/19 [Sulfamethoxazole-Tmp Ds Tablet] Cod Liver Oil/Zinc Oxide [Desitin] 1 applic TOP TID 14 Days #1 tube 09/03/19 - Allergies Allergies/Adverse Reactions: Allergies Allergy/AdvReac Type Severity Reaction Status Date / Time paroxetine HCl * [From Paxil] AdvReac Intermediate Emesis Verified 09/03/19 11:01 codeine [Codeine] AdvReac Pass Out Verified 09/03/19 11:01 - Social History Does the pt smoke?: No Smoking Status: Never smoker Does the pt drink ETOH?: No Does the pt have substance abuse?: No - Immunizations Immunizations are current?: Yes - POLST Patient has POLST: No PD ED PE NORMAL - General General: Alert and oriented X 3 - HEENT HEENT: Atraumatic - Cardiac Cardiac: RRR - Respiratory Respiratory: No respiratory distress - Abdomen Abdomen: Soft, Non tender, Non distended - Female Female : Other (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 In the right inguinal crease, lateral to the vulva there are several 1 cm x 0.5 cm areas of macerated tissue whichAre superficial. There is no area of fluctuance or edema or induration. No drainage. No significant erythema or signs of infection.) - Neuro Neuro: Alert and oriented X 3, Other (Wheelchair-bound, limited mobility especially of the lower extremities) Results - Vitals Vitals: Vital Signs - 24 hr 09/03/19 10:58 Temperature 36.5 C Heart Rate 70 Respiratory 16 Rate Blood Pressure 124/78 O2 Saturation 99 Oxygen O2 Source Room air PD MEDICAL DECISION MAKING - ED course Complexity details: considered differential (Abscess, cellulitis, maceration, phlegmon) ED course: On exam patient has some macerated tissue and several small open sores that appear to be due to rubbing of her briefs and probably moisture trapped in the inguinal crease region. There is no sign of abscess, and the area does not appear to have any signs of cellulitis or infection. It appears to be more of a subacute wound, I discussed that this will need careful follow-up and careful wound care. It is in an area where it is hard for patient to monitor. I discussed using a barrier cream and keeping the area dry, I also discussed return precautions and close follow-up with her primary care provider. If these wounds are not healing she needs to be seen by wound care, she understands and agrees with this plan. She is written a prescription for zinc oxide barrier cream and discharged in good condition. Departure - Departure Disposition: 01 Home, Self Care Clinical Impression: Skin maceration Condition: Good Prescriptions: Cod Liver Oil/Zinc Oxide [Desitin] 1 applic TOP TID 14 Days #1 tube Comments: You were seen today for wound check in your right groin. There are several small open wounds in this area which appear to be skin breakdown due to irritation from your briefs and potentially from the area staying moist. Try to pat the area dry, apply barrier cream such as zinc oxide or Desitin, you may also put a simple nonstick bandage over the open wounds until they heal. Follow-up with your primary care provider for a wound check, If this area is continuing to not heal quickly, you should follow-up with wound care.
[2019-09-03 14:05] VITALS: BP 124/77
== END 2019-09-03 14:05 | disposition home or self-care (01) ==
LOC: ED 10:37
DX: L98.8 Other specified disorders of the skin and subcutaneous tissue (principal); G80.9 Cerebral palsy, unspecified; Z99.3 Dependence on wheelchair
CPT/HCPCS: 99282; 99284

== ENCOUNTER 2020-01-09 21:05 | Outpatient (CLI) | payer MEDICARE, MEDICAID | END 2020-01-09 21:06 | disposition critical access hospital (66) | LOC: EMS 21:05 | PROVIDERS: ATTEND Surgery | DX: T83.038A Leakage of other urinary catheter, initial encounter (principal); R52 Pain, unspecified; R50.9 Fever, unspecified | CPT/HCPCS: A0425; A0429 ==

== ENCOUNTER 2020-01-09 21:24 | Observation (INO) | payer MEDICARE, MEDICAID ==
[2020-01-09] MEDS ORDERED: SODIUM CHLORIDE 0.9% 1,000 ML IV STA ×2 (21:30)
--- NOTE | 2020-01-09 21:36 | ED Physician Documentation ---
History of Present Illness - Stated complaint Stated Complaint: CATH PROBLEMS - History obtained from History obtained from: Patient - History of Present Illness Timing: Today Pain level max: 5 Pain level now: 4 - Additonal information Additional information: 49 year old female with a chronic indwelling butcher catheter. States catheter started leaking tonight and felt hot at home. Nothing makes it better or worse. Had a fever with EMS. No vomiting. No nausea. No diarrhea. no constipation. Review of Systems Ten Systems: 10 systems reviewed and negative Constitutional: reports: Fever, Chills Ears: denies: Ear pain Nose: denies: Rhinorrhea / runny nose, Congestion Throat: denies: Sore throat Cardiac: denies: Chest pain / pressure Respiratory: denies: Cough GI: denies: Abdominal Pain, Diarrhea, Hematemesis, Bloody / black stool Skin: denies: Rash Musculoskeletal: denies: Neck pain, Back pain Neurologic: denies: Headache PD PAST MEDICAL HISTORY - Past Medical History Cardiovascular: None Respiratory: Asthma, Other Neuro: None Endocrine/Autoimmune: Other GI: GERD COUNSELOR/ART THERAPIST: None : Indwelling catheter HEENT: Chronic vision loss Psych: Anxiety Musculoskeletal: Osteoarthritis Derm: Psoriasis - Past Surgical History Past Surgical History: Yes General: EGD Ortho: Other /COUNSELOR/ART THERAPIST: section, Hysterectomy - Present Medications Home Medications: Ambulatory Orders Medication Instructions Recorded Confirmed Dexlansoprazole [Dexilant] 60 mg PO DAILY 04/27/13 10/28/19 Propranolol [Inderal] 20 mg PO TID 04/27/13 10/28/19 Enalapril [Vasotec] 5 mg ORAL DAILY 05/14/14 10/28/19 Nystatin Cream [Mycostatin Cream] 1 applic TOP BID PRN #60 g 12/30/15 10/28/19 Citalopram Hydrobromide [Celexa] 10 mg PO DAILY 08/22/16 10/28/19 Oxybutynin Chloride [Ditropan Xl] 10 mg PO DAILY 01/23/17 10/28/19 Quetiapine Fumarate [Seroquel Xr] 300 mg PO DAILY PM 01/23/17 10/28/19 oxyCODONE/ACET 5/325 [Percocet 5 1 - 2 tab PO PRN PRN MDD 4 03/16/17 10/28/19 mg/325 mg] Zolpidem Tartrate [Ambien] 10 mg PO QPM PRN 06/05/17 10/28/19 Topiramate 25 mg PO BID 07/31/17 10/28/19 Aripiprazole [Abilify] 20 mg PO DAILY 08/28/17 10/28/19 Hydrocortisone 1% Oint 1 gm TP TID PRN 08/28/17 10/28/19 [Hydrocortisone] buPROPion [Wellbutrin Sr] 150 mg PO BID 08/28/17 10/28/19 Miconazole Nitrate 1 gm TP TID #5 cream..g. 03/26/18 10/28/19 hydrOXYzine pamoate [Hydroxyzine 25 mg PO ONCE PRN 07/09/18 10/28/19 Pamoate] Ferrous Sulfate 325 mg PO BID #60 tablet 07/30/18 10/28/19 Loperamide [Imodium] 2 mg PO TID PRN 04/29/19 10/28/19 Tolnaftate [Tinactin] 108 gm TP BID #1 powder 05/29/19 10/28/19 Fluconazole [Diflucan] 150 mg PO DAILY #14 tablet 08/25/19 10/28/19 Sulfamethoxazole/Trimethoprim 1 each PO BID #14 tablet 08/25/19 10/28/19 [Sulfamethoxazole-Tmp Ds Tablet] Cod Liver Oil/Zinc Oxide [Desitin] 1 applic TOP TID 14 Days #1 tube 09/03/19 10/28/19 - Allergies Allergies/Adverse Reactions: Allergies Allergy/AdvReac Type Severity Reaction Status Date / Time paroxetine HCl * [From Paxil] AdvReac Intermediate Emesis Verified 01/09/20 21:55 codeine [Codeine] AdvReac Pass Out Verified 01/09/20 21:55 - Social History Does the pt smoke?: No Smoking Status: Never smoker Does the pt drink ETOH?: No Does the pt have substance abuse?: No - Immunizations Immunizations are current?: Yes - POLST Patient has POLST: No PD ED PE NORMAL - Vitals Vital signs reviewed: Yes - General General: Alert and oriented X 3, No acute distress - HEENT HEENT: Moist mucous membranes - Neck Neck: Supple, no meningeal sign - Cardiac Cardiac: RRR - Respiratory Respiratory: No respiratory distress, Clear bilaterally - Abdomen Abdomen: Soft, Non tender, Non distended, Other (mild skin breakdown around the suprapubic stoma.) - Back Back: No CVA TTP, No spinal TTP - Derm Derm: Warm and dry - Extremities Extremities: No calf tenderness / cord - Neuro Neuro: Alert and oriented X 3 - Psych Psych: Normal mood, Normal affect Results - Vitals Vitals: Vital Signs - 24 hr 01/09/20 21:25 Temperature 37.9 C H Heart Rate 98 Respiratory 18 Rate Blood Pressure 129/95 H O2 Saturation 100 Oxygen O2 Source Room air - Labs Labs: Laboratory Tests 01/09/20 01/09/20 01/09/20 21:20 21:39 21:41 WBC 11.9 H RBC 4.87 Hgb 12.2 Hct 39.3 MCV 80.7 L MCH 25.1 L MCHC 31.0 L RDW 17.0 H Plt Count 374 MPV 10.7 Neut # (Auto) 9.4 H Lymph # (Auto) 1.2 L Elbert # (Auto) 1.1 H Eos # (Auto) 0.0 Baso # (Auto) 0.0 Absolute Nucleated RBC 0.00 Nucleated RBC % 0.0 PT INR APTT Sodium Potassium Chloride Carbon Dioxide Anion Gap BUN Creatinine Estimated GFR (MDRD) Glucose Lactic Acid 1.5 Calcium Total Bilirubin AST ALT Alkaline Phosphatase Total Protein Albumin Globulin Albumin/Globulin Ratio Lipase Urine Color YELLOW Urine Clarity SL. CLOUDY Urine pH 5.5 Ur Specific [place] 1.015 Urine Protein NEGATIVE Urine Glucose (UA) NEGATIVE Urine Ketones NEGATIVE Urine Occult Blood LARGE H Urine Nitrite POSITIVE H Urine Bilirubin NEGATIVE Urine Urobilinogen 0.2 (NORMAL) Ur Leukocyte Esterase LARGE H Ur Microscopic Review INDICATED Urine Culture Comments Not Reportable 01/09/20 01/09/20 21:41 21:41 WBC RBC Hgb Hct MCV MCH MCHC RDW Plt Count MPV Neut # (Auto) Lymph # (Auto) Elbert # (Auto) Eos # (Auto) Baso # (Auto) Absolute Nucleated RBC Nucleated RBC % PT 13.4 H INR 1.2 APTT 33.9 H Sodium 131 L Potassium 4.4 Chloride 100 L Carbon Dioxide 22 Anion Gap 9.0 BUN 11 Creatinine 0.7 Estimated GFR (MDRD) 89 Glucose 121 H Lactic Acid Calcium 8.7 Total Bilirubin 0.6 AST 19 ALT 17 Alkaline Phosphatase 97 Total Protein 7.7 Albumin 3.3 Globulin 4.4 H Albumin/Globulin Ratio 0.8 L Lipase 24 Urine Color Urine Clarity Urine pH Ur Specific [place] Urine Protein Urine Glucose (UA) Urine Ketones Urine Occult Blood Urine Nitrite Urine Bilirubin Urine Urobilinogen Ur Leukocyte Esterase Ur Microscopic Review Urine Culture Comments - Rads (name of study) cxr Radiology: Prelim report reviewed, EMP read contemporaneously, See rad report (no acute disease.) PD MEDICAL DECISION MAKING - ED course Complexity details: reviewed results, re-evaluated patient, considered differential, d/w patient ED course: Patient presents to the emergency department with fever, catheter associated UTI, dehydration, abdominal pain and leukocytosis. Given Rocephin. Given IV fluids. She still does not feel well. Normal lactate. Blood cultures drawn. We will place in observation for continued hydration and monitoring. Chest x- ray is negative. No cough. Discussed the case with Dr. Dupree, hospitalist who accepts This document was made in part using voice recognition software. While efforts are made to proofread this document, sound alike and grammatical errors may occur. Departure - Departure Disposition: ED Place in Observation Clinical Impression: Suprapubic catheter UTI (urinary tract infection) Qualifiers: Urinary tract infection type: catheter-associated UTI Indwelling urinary catheter type: indwelling urethral catheter Encounter type: initial encounter Qualified Code(s): T83.511A - Infection and inflammatory reaction due to indwelling urethral catheter, initial encounter; N39.0 - Urinary tract infection, site not specified Fever Qualifiers: Fever type: unspecified Qualified Code(s): R50.9 - Fever, unspecified Leukocytosis Qualifiers: Leukocytosis type: unspecified Qualified Code(s): D72.829 - Elevated white blood cell count, unspecified Abdominal pain Qualifiers: Abdominal location: unspecified location Qualified Code(s): R10.9 - Unspecified abdominal pain Condition: Stable
[2020-01-09 21:49] LABS: BASOPHILS % (AUTO) 0.3 %; EOSINOPHILS % (AUTO) 0.3 %; HGB - HEMOGLOBIN 12.2 g/dL (12.0-16.0); LYMPHOCYTES # (AUTO) 1.2 10^3/uL (1.5-3.5); LYMPHOCYTES % (AUTO) 10.1 %; MEAN CORPUSCULAR HEMOGLOBIN 25.1 pg (27.0-31.0); MEAN CORPUSCULAR VOLUME 80.7 fL (81.0-99.0); MEAN PLATELET VOLUME 10.7 fL (7.9-10.8); MONOCYTES # (AUTO) 1.1 10^3/uL (0.0-1.0); MONOCYTES % (AUTO) 9.1 %; NEUTROPHILS # (AUTO) 9.4 10^3/uL (1.5-6.6); NEUTROPHILS % (AUTO) 79.7 %; PLT - PLATELET COUNT 374 10^3/uL (130-450); RED BLOOD COUNT 4.87 10^6/uL (4.20-5.40); WHITE BLOOD COUNT 11.9 x10^3/uL (4.8-10.8)
[2020-01-09 21:54] LABS: INR 1.2 (0.8-1.2); PT - PROTHROMBIN TIME 13.4 secs (9.9-12.6)
[2020-01-09 22:02] LABS: ALBUMIN 3.3 g/dL (3.2-5.5); ALBUMIN/GLOBULIN RATIO 0.8 (1.0-2.2); BILIRUBIN,TOTAL 0.6 mg/dL (0.2-1.0); CALCIUM 8.7 mg/dL (8.5-10.3); CREATININE 0.7 mg/dL (0.4-1.0); PARTIAL THROMBOPLASTIN TIME 33.9 secs (24.9-33.3); TOTAL PROTEIN 7.7 g/dL (6.7-8.2)
--- NOTE | 2020-01-09 22:02 | XRAY Report ---
Reason: fever Procedure Date: 01/09/2020 Accession Number: [id number] / [id number] Procedure: XR - Chest 1 View X-Ray CPT Code: 47543 Final Report FULL RESULT: EXAM: CHEST RADIOGRAPHY EXAM DATE: 01/09/2020 09:54 PM. CLINICAL HISTORY: Fever. COMPARISON: XR CHEST PA AND LAT 12/12/2011 9:07 PM. TECHNIQUE: 1 view. FINDINGS: Lungs/Pleura: No focal opacities evident. No pleural effusion. No pneumothorax. Mediastinum: Within exam limitations, the cardiomediastinal contour is normal. Other: None. IMPRESSION: Normal single view chest. RADIA
[2020-01-09] MEDS ORDERED: cefTRIAXone 1 GM VIAL IVP STA (22:08)
[2020-01-09 22:27] LABS: BILIRUBIN,URINE NEGATIVE (NEGATIVE); GLUCOSE, URINE (UA) NEGATIVE (NEGATIVE); KETONES,URINE (UA) NEGATIVE (NEGATIVE); LEUKOCYTE ESTERASE, URINE LARGE (NEGATIVE); NITRITE,URINE POSITIVE (NEGATIVE); OCCULT BLOOD,URINE LARGE (NEGATIVE); PH,URINE 5.5 PH (5.0-7.5); PROTEIN,URINE NEGATIVE (NEGATIVE); UROBILINOGEN,URINE 0.2 (NORMAL) E.U./dL (NORMAL)
[2020-01-09 22:28] LABS: CLARITY,URINE SL. CLOUDY (CLEAR)
[2020-01-09] MEDS ORDERED: MORPHINE 2 MG/ML CARPUJECT IVP STA (22:29)
[2020-01-09] MEDS ORDERED: SODIUM CHLORIDE FLUSH 0.9% 10 ML SYRINGE IVP PRN (22:34)
[2020-01-09 22:40] LABS: BACTERIA,URINE Few /HPF (None Seen); RBC,URINE 0-5 /HPF (0-5); SQUAMOUS EPITHELIAL CELL,UR FEW Squamous (<= Few); WBC CLUMPS,URINE PRESENT
--- NOTE | 2020-01-09 22:46 | HISTORY & PHYSICAL EXAMINATION ---
Chief Complaint - Chief Complaint Chief Complaint: clogged suprapubic catheter History of Present Illness - Admitted From [facility] - History Obtained From Records Reviewed: yes History obtained from: patient - History of Present Illness HPI Comment/Other: Patient is 49-year-old female with history of cerebral palsy since , bipolar disorder, depression and chronic suprapubic catheter who presented to the ED today because her catheter was clogged. She normally goes to [facility] 3 weeks for changing of the suprapubic catheter. It was last changed on December 30, 2019. Today she reported having an urge to urinate and then realized that she had been incontinent of urine. She suspected that she had an urge because the catheter was not functioning to empty her bladder. As a result she called EMS and was brought to the ED to have it addressed. In the hospital a UA was done which was indicative of a UTI. She described the urine color as the color of root beer. She is generally susceptible to UTIs. In the past, cultures have been positive for Pseudomonas and E faecalis. She also had a low- grade temperature and appeared dehydrated. As a result she was presented for admission as observation. In order to receive more IV hydration overnight and IV antibiotics. At bedside she denied chest pain, dyspnea, abdominal pain, nausea or vomiting. History - Past Medical History Cardiovascular: reports: None Respiratory: reports: Asthma, Other Neuro: reports: None, Other (cerebral palsy) Endocrine/Autoimmune: reports: Other GI: reports: GERD THERAPY ADMINISTRATIVE ASSISTANT: reports: None : reports: Indwelling catheter HEENT: reports: Chronic vision loss Psych: reports: Depression, Anxiety, Bipolar disorder, Post traumatic stress disorder Musculoskeletal: reports: Osteoarthritis, Other (DJD) Derm: reports: Psoriasis MRSA Hx?: No - Past Surgical History General: reports: Hiatal hernia repair, EGD Ortho: reports: Other (hip, ankle) /THERAPY ADMINISTRATIVE ASSISTANT: reports: section, Hysterectomy - Family & Social History Family History Comment/Other: She was adopted Living arrangement: At home Living Situation: Alone Social History Notes: Patient does not drink alcohol. She quit smoking 20+ years ago. - Substance History Use: Uses substance without health or social issues: NONE - POLST Patient has POLST: No Meds/Allgy - Home Medications Home Medications: Ambulatory Orders Medication Instructions Recorded Confirmed Dexlansoprazole [Dexilant] 60 mg PO DAILY 09/11/13 05/25/20 Propranolol [Inderal] 20 mg PO TID 04/27/13 01/09/20 Enalapril [Vasotec] 5 mg ORAL DAILY 05/14/14 01/09/20 Nystatin Cream [Mycostatin Cream] 1 applic TOP BID PRN #60 g 12/30/15 01/09/20 Citalopram Hydrobromide [Celexa] 10 mg PO DAILY 08/22/16 01/09/20 Oxybutynin Chloride [Ditropan Xl] 10 mg PO DAILY 01/23/17 01/09/20 Quetiapine Fumarate [Seroquel Xr] 300 mg PO DAILY PM 01/23/17 01/09/20 oxyCODONE/ACET 5/325 [Percocet 5 1 - 2 tab PO PRN PRN MDD 4 03/16/17 01/09/20 mg/325 mg] Zolpidem Tartrate [Ambien] 10 mg PO QPM PRN 06/05/17 01/09/20 Topiramate 25 mg PO BID 07/31/17 01/09/20 Aripiprazole [Abilify] 20 mg PO DAILY 08/28/17 01/09/20 Hydrocortisone 1% Oint 1 gm TP TID PRN 08/28/17 01/09/20 [Hydrocortisone] buPROPion [Wellbutrin Sr] 150 mg PO BID 08/28/17 01/09/20 Miconazole Nitrate 1 gm TP TID #5 cream..g. 03/26/18 01/09/20 hydrOXYzine pamoate [Hydroxyzine 25 mg PO ONCE PRN 07/09/18 01/09/20 Pamoate] Ferrous Sulfate 325 mg PO BID #60 tablet 07/30/18 01/09/20 Loperamide [Imodium] 2 mg PO TID PRN 04/29/19 01/09/20 Tolnaftate [Tinactin] 108 gm TP BID #1 powder 05/29/19 01/09/20 Fluconazole [Diflucan] 150 mg PO DAILY #14 tablet 08/25/19 01/09/20 Cod Liver Oil/Zinc Oxide [Desitin] 1 applic TOP TID 14 Days #1 tube 09/03/19 01/09/20 - Allergies Allergies/Adverse Reactions: Allergies Allergy/AdvReac Type Severity Reaction Status Date / Time paroxetine HCl * [From Paxil] AdvReac Intermediate Emesis Verified 01/09/20 21:55 codeine [Codeine] AdvReac Pass Out Verified 01/09/20 21:55 Review of Systems - Constitutional Constitutional: reports: Fever - Eyes Eyes: denies: Pain - Ears, Nose & Throat Ears, Nose & Throat: denies: Sore throat - Cardiovascular Cariovascular: denies: Irregular heart rate, Palpitations, Chest pain, Edema - Respiratory Respiratory: denies: Cough, Sputum production, Wheezing, Snoring, SOB at rest - Gastrointestinal Gastrointestinal: denies: Abdominal pain, Abdominal distention, Nausea, Vomiting - Genitourinary Genitourinary: reports: Other (suprapubic butcher catheter) - Musculoskeletal Musculoskeletal: denies: Muscle pain, Back pain, Muscle aches, Stiffness - Integumentary Integumentary: denies: Rash, Pruritis, Lesions - Neurological Neurological: reports: Other (cerebral palsy. wheel chair bount. Atrophy of lower extremities with some contractures) - Psychiatric Psychiatric: reports: Depression, Anxiety - Endocrine Endocrine: denies: Polyuria, Polydypsia - Hematologic/Lymphatic Hematologic/Lymphatic: denies: Anemia, Bruising, Petechiae Prior Level of Functionality: Patient lives alone. She is mostly wheelchair-bound. She has caregivers who come to her house daily. She [facility] 3 weeks for change of her catheter. Exam - Vital Signs Vital Signs: Vital Signs x48h Temp Pulse Resp BP Pulse Ox 01/09/20 22:40 37.2 C 88 18 97/73 95 01/09/20 21:25 37.9 C H 98 18 129/95 H 100 - Physical Exam General Appearance: positive: No acute distress, Alert Eyes Bilateral: positive: PERRL, EOMI ENT: positive: Pharynx nml Neck: positive: No JVD, Trachea midline Respiratory: positive: Chest non-tender, No respiratory distress, Breath sounds nml. negative: Wheezes, Rales, Rhonchi Cardiovascular: positive: Regular rate & rhythm Abdomen: positive: Non-tender, Nml bowel sounds, No distention. negative: Guarding, Rebound Back: positive: Nml inspection Skin: positive: Color nml, No rash, Warm, Dry Extremities: positive: Other (atrophic change with some contactures owing to cerebral palsy) Neurologic/Psychiatric: positive: Oriented x3, Mood/affect nml Conclusion/Plan - Problem List (1) Urinary tract infection Conclusion/Plan: Patient susceptible to frequent UTIs due to chronic urinary catheter. Patient started on Rocephin. Will continue. Urine cultures pending. Patient receiving IV hydration with normal saline at 125 mils per hour. Tylenol PRN for fever or pain. Qualifiers: Urinary tract infection type: catheter-associated UTI Indwelling urinary catheter type: indwelling urethral catheter Encounter type: initial encounter Qualified Code(s): T83.511A - Infection and inflammatory reaction due to indwelling urethral catheter, initial encounter; N39.0 - Urinary tract infection, site not specified (2) Candidal intertrigo Conclusion/Plan: Nystatin topical powder twice daily. (3) Bipolar disorder Conclusion/Plan: On Seroquel XR 600 mg p.o. daily. Abilify 30 mg p.o. nightly Seroquel XL 300 mg tab qpm We will resume 1 which is verified (4) Depression Conclusion/Plan: On citalopram and Wellbutrin - Lab Results Fish Bones: 01/09/20 21:41 01/09/20 21:41 Core Measures - Anticipated LOS I expect patient to be DC'd or transferred within 96 hours.: Yes - DVT/VTE - Prophylaxis VTE/DVT Device ordered at admit?: Yes VTE/DVT Prophylaxis med ordered at admit?: Yes
[2020-01-09] MEDS ORDERED: SODIUM CHLORIDE 0.9% 1,000 ML IV SCH (23:00)
[2020-01-10] MEDS ORDERED: SODIUM CHLORIDE FLUSH 0.9% 10 ML SYRINGE IVP SCH (01:00)
[2020-01-10] MEDS: NYSTATIN POWDER 15 GM TOP SCH ×2 (01:03→08:45)
[2020-01-10] MEDS: ACETAMINOPHEN 325 MG TABLET PO PRN ×2 (01:03→08:45)
[2020-01-10] MEDS: oxyCODONE 5 MG TABLET PO PRN ×2 (01:03→08:45)
[2020-01-10] MEDS ORDERED: ONDANSETRON 4 MG/2 ML VIAL IVP PRN (01:10)
[2020-01-10 04:55] LABS: BASOPHILS % (AUTO) 0.4 %; EOSINOPHILS # (AUTO) 0.2 10^3/uL (0.0-0.7); EOSINOPHILS % (AUTO) 1.8 %; HGB - HEMOGLOBIN 9.6 g/dL (12.0-16.0); LYMPHOCYTES # (AUTO) 1.7 10^3/uL (1.5-3.5); LYMPHOCYTES % (AUTO) 19.6 %; MEAN CORPUSCULAR HEMOGLOBIN 23.9 pg (27.0-31.0); MEAN CORPUSCULAR HGB CONC 29.8 g/dL (32.0-36.0); MEAN CORPUSCULAR VOLUME 80.3 fL (81.0-99.0); MEAN PLATELET VOLUME 9.9 fL (7.9-10.8); MONOCYTES # (AUTO) 1.1 10^3/uL (0.0-1.0); MONOCYTES % (AUTO) 12.5 %; NEUTROPHILS # (AUTO) 5.5 10^3/uL (1.5-6.6); NEUTROPHILS % (AUTO) 65.1 %; PLT - PLATELET COUNT 294 10^3/uL (130-450); RED BLOOD COUNT 4.01 10^6/uL (4.20-5.40); RED CELL DISTRIBUTION WIDTH 16.9 % (12.0-15.0); WHITE BLOOD COUNT 8.5 x10^3/uL (4.8-10.8)
[2020-01-10 05:04] LABS: CALCIUM 8.1 mg/dL (8.5-10.3); CREATININE 0.6 mg/dL (0.4-1.0)
[2020-01-10] MEDS ORDERED: PANTOPRAZOLE 40 MG TABLET PO SCH (07:00)
[2020-01-10] MEDS ORDERED: ENOXAPARIN 40 MG/0.4 ML SYRINGE SUBQ SCH (09:00)
[2020-01-10] MEDS ORDERED: cefTRIAXone 1 GM in SODIUM CHLORIDE 0.9% MINIBAG 100 ML IV SCH (09:00)
--- NOTE | 2020-01-10 09:03 | PHARMACY PROGRESS NOTE ---
- Best Possible Medication History Admit Date and Time: 01/09/20 2239 Processed by: Nursing Medication History completed: Yes As the person ultimately responsible for medication therapy, providers are able to order a medication from an existing home medication list in [facility] via the "Reconcile Routine" prior to Confirmation of that medication by support dba. Such practice is discouraged except when the physician, in their clinical judgment, deems that a medical need exists for a medication without regard to previous use.
[2020-01-10 11:15] VITALS: BP 132/78
[2020-01-10] MEDS ORDERED: FLUCONAZOLE 100 MG TABLET PO SCH (12:00)
--- NOTE | 2020-01-10 13:20 | Discharge Plan ---
Discharge Plan Problem Reviewed?: Yes Disposition: Home, Self Care Condition: Stable Prescriptions: Fluconazole [Diflucan] 100 mg PO DAILY #3 tablet Nitrofurantoin [Macrobid] 100 mg PO BID #10 capsule Diet: Regular Activity Restrictions: Activity as Tolerated Assistance Devices: Wheelchair, Other (tootie lift) Weight Bearing: Full Weight Instruction Topics: Nitrofurantoin tablets or capsules, Fluconazole tablets, COVID-19 [facility], COVID-19 [facility] Statement Health Concerns: You presented to the hospital as a clogged urinary catheter resulting in dark urine. You were having incontinence around the catheter. While being evaluated you were found to be slightly dehydrated, had a possible urinary tract infection and were placed in observation to treat the UTI and to receive IV fluids for hydration. Plan of Treatment: 1. You received IV fluids. 2. You received IV antibiotics for the gram-negative alphonso bacteria growing in your urine. Please complete antibiotic therapy with a twice a day pill for the next 5 days. The antibiotic is called Macrobid. 3. Please follow-up with your primary care provider to make sure that the antibiotic is treating the bacteria. At this time we only have preliminary identification of the bacteria and it is a gram-negative alphonso. In May 2019 the bacteria was E. coli. Care Goals: You have stated that you wished to no longer have a catheter and will be seeing your primary care provider to discuss that. Assessment: Patient understands goals and will follow through. No Smoking: If you smoke, Please STOP! Call for help. Follow-up with: COLBY SO MD [Primary Care Provider] -
--- NOTE | 2020-01-15 20:06 | DISCHARGE SUMMARY ---
Physician: Kathleen Pérez MD DATE OF ADMISSION: 01/09/2020 DATE OF DISCHARGE: 01/10/2020 DISCHARGE DIAGNOSES 1. Urinary tract infection due to urinary catheter, present on admission. 2. Milla intertrigo. 3. Bipolar disorder. 4. Depression. DISCHARGE MEDICATIONS 1. Abilify 20 mg daily. 2. Wellbutrin SR 150 mg b.i.d. 3. Citalopram 10 mg daily. 4. Dexilant 60 mg daily. 5. Enalapril 5 mg daily. 6. Hydrocortisone cream topically t.i.d. p.r.n. itching and rash. 7. Hydroxyzine 25 mg 1-2 capsules daily as needed for catheter change anxiety. 8. Imodium 2 mg p.o. t.i.d. p.r.n. diarrhea. 9. Ditropan-XL 10 mg daily. 10. Oxycodone 5/325, 1 to 2 tablets as needed for pain and anxiety, max 4 a day. 11. Propranolol 20 mg p.o. t.i.d. 12. Seroquel XL 300 mg p.o. daily. 13. Topamax 25 mg p.o. b.i.d. 14. Zolpidem 10 mg p.o. q.p.m. 15. Fluconazole 100 mg daily. 16. Macrobid 100 mg p.o. b.i.d., #10. PRINCIPAL PROCEDURES 1. Chest x-ray with normal single view chest. 2. Urine culture growing Escherichia coli that is resistant to ampicillin, ampicillin/sulbactam, and trimethoprim/sulfamethoxazole. 3. Blood cultures negative. HOSPITAL COURSE: The patient is a 49-year-old female with a history of cerebral palsy since , b ipolar disorder, depression, and a chronic indwelling suprapubic catheter, who presents to the emerge ncy room because her catheter was clogged. She goes to the medical ambulatory clinic every three wee ks for changing of the catheter. It was last changed on 12/30/2019. Today, she had an increased urg e to urinate and then realized that she had been incontinent of urine. She suspected that the urge t o urinate was because her catheter was not functioning to empty her bladder. She called EMS and EMS brought her to the emergency room to have it addressed. In the hospital, evaluation showed her to haro ve a urine that had occult blood, nitrites, leukocyte esterase, red cells, white cells, a few squamou s epithelial cells and a few bacteria. It was cloudy. Culture was sent. She had a low-grade temper ature and appeared dehydrated on exam and labs. As such, she was presented for observation. Overnight, she received IV fluids, IV antibiotics, and the patient felt at baseline. White cell coun t on admission was 11.9 thousand and decreased to 8.5 thousand. As such, she was stable to return home or to her residency for transfer. We have asked her to comple te her Macrobid b.i.d. We have also asked her to follow up with her primary care provider, Lolis Uriarte. At discharge, she was having vaginal discharge that she associates with Milla and asked u s to please prescribe Diflucan. PHYSICAL EXAMINATION VITAL SIGNS: At discharge, the patient had temperature is 36.3, pulse 78, blood pressure 132/78, res pirations 18, 97% on room air. GENERAL: She has facial changes of her cerebral palsy, speech deficit because of the cerebral palsy, but is cheerful, pleasant, and asking us to make arrangements for her sister to pick her up and take her home. NECK: Supple without JVD and she does have shotty adenopathy. LUNGS: Slow unlabored respirations. Diminished at the bases. HEART: PMI is normally placed with a regular rate and rhythm. ABDOMEN: Soft, nontender. Suprapubic catheter is now draining clear yellow urine, were it was quite dark and cloudy when she came in. No tenderness around the suprapubic catheter site. MUSCULOSKELETAL: She has flexion contractures mild in upper and lower extremities, but able to use h er hands in a purposeful movement and able to push with her arms and hands to set up a little bit. TD: 01/15/2020 18:58
== END 2020-01-10 13:50 | disposition home or self-care (01) ==
LOC: EDBD → EDUNIT# → EDSEX → ED 21:24 → MS3 22:34
PROVIDERS: ADMIT Internal Medicine; ATTEND Internal Medicine
DX: T83.510A Infection and inflammatory reaction due to cystostomy catheter, initial encounter (principal); N39.0 Urinary tract infection, site not specified; B96.20 Unspecified Escherichia coli [E. coli] as the cause of diseases classified elsewhere; B37.2 Candidiasis of skin and nail; T83.018A Breakdown (mechanical) of other urinary catheter, initial encounter; R33.8 Other retention of urine; G80.9 Cerebral palsy, unspecified; F31.9 Bipolar disorder, unspecified; F41.9 Anxiety disorder, unspecified; F43.10 Post-traumatic stress disorder, unspecified; M19.90 Unspecified osteoarthritis, unspecified site; M24.50 Contracture, unspecified joint; N89.8 Other specified noninflammatory disorders of vagina; Y73.1 Therapeutic (nonsurgical) and rehabilitative gastroenterology and urology devices associated with adverse incidents; Y92.009 Unspecified place in unspecified non-institutional (private) residence as the place of occurrence of the external cause; K21.9 Gastro-esophageal reflux disease without esophagitis; L40.9 Psoriasis, unspecified; H54.7 Unspecified visual loss; Z79.891 Long term (current) use of opiate analgesic; Z99.3 Dependence on wheelchair; Z87.891 Personal history of nicotine dependence
CPT/HCPCS: 36415; 51702; 71045; 80048; 80053; 81001; 83605; 83690; 85025; 85610; 85730; 87040; 87077; 87086; 87181; 96361; 96365; 96372; 96375; 99285; A9270; G0378; J1650; 81003

== ENCOUNTER 2020-01-10 13:40 | Outpatient (CLI) | payer MEDICARE, MEDICAID | END 2020-01-10 13:41 | disposition home or self-care (01) | LOC: EMS 13:40 | PROVIDERS: ATTEND Surgery | DX: G80.9 Cerebral palsy, unspecified (principal); N39.0 Urinary tract infection, site not specified; Z74.01 Bed confinement status | CPT/HCPCS: A0425; A0428 ==

== ENCOUNTER 2020-02-04 22:46 | Outpatient (CLI) | payer MEDICARE, MEDICAID | END 2020-02-04 22:47 | disposition critical access hospital (66) | LOC: EMS 22:46 | PROVIDERS: ATTEND Surgery | DX: T83.038A Leakage of other urinary catheter, initial encounter (principal) | CPT/HCPCS: A0425; A0429 ==

== ENCOUNTER 2020-02-04 23:07 | Emergency (ER) | payer MEDICARE, MEDICAID ==
--- NOTE | 2020-02-04 23:05 | ED Physician Documentation ---
History of Present Illness - Stated complaint Stated Complaint: FEM - History obtained from History obtained from: Patient (Patient is a 49-year-old female with cerebral palsy with chronic suprapubic indwelling catheter that was changed yesterday presents stating she thinks she has a urinary tract infection denies any other complaints. Reports Epps is functioning but reports the urine appears to be infected) Review of Systems Constitutional: reports: Reviewed and negative Eyes: reports: Reviewed and negative Ears: reports: Reviewed and negative Nose: reports: Reviewed and negative Throat: reports: Reviewed and negative Cardiac: reports: Reviewed and negative Respiratory: reports: Reviewed and negative GI: reports: Reviewed and negative : reports: Dysuria Skin: reports: Reviewed and negative Musculoskeletal: reports: Reviewed and negative Neurologic: reports: Reviewed and negative Psychiatric: reports: Reviewed and negative Endocrine: reports: Reviewed and negative Immunocompromised: reports: Reviewed and negative PD PAST MEDICAL HISTORY - Present Medications Home Medications: Ambulatory Orders Medication Instructions Recorded Confirmed Dexlansoprazole [Dexilant] 60 mg PO DAILY 04/27/13 01/20/20 Propranolol [Inderal] 20 mg PO TID 04/27/13 01/20/20 Enalapril [Vasotec] 5 mg ORAL DAILY 05/14/14 01/20/20 Nystatin Cream [Mycostatin Cream] 1 applic TOP BID PRN #60 g 12/30/15 01/20/20 Citalopram Hydrobromide [Celexa] 10 mg PO DAILY 08/22/16 01/20/20 Oxybutynin Chloride [Ditropan Xl] 10 mg PO DAILY 01/23/17 01/20/20 Quetiapine Fumarate [Seroquel Xr] 300 mg PO DAILY PM 01/23/17 01/20/20 oxyCODONE/ACET 5/325 [Percocet 5 1 - 2 tab PO PRN PRN MDD 4 03/16/17 01/20/20 mg/325 mg] Zolpidem Tartrate [Ambien] 10 mg PO QPM PRN 06/05/17 01/20/20 Topiramate 25 mg PO BID 07/31/17 01/20/20 Aripiprazole [Abilify] 20 mg PO DAILY 08/28/17 01/20/20 Hydrocortisone 1% Oint 1 gm TP TID PRN 08/28/17 01/20/20 [Hydrocortisone] buPROPion [Wellbutrin Sr] 150 mg PO BID 08/28/17 01/20/20 Miconazole Nitrate 1 gm TP TID #5 cream..g. 03/26/18 01/20/20 hydrOXYzine pamoate [Hydroxyzine 25 mg PO ONCE PRN 07/09/18 01/20/20 Pamoate] Ferrous Sulfate 325 mg PO BID #60 tablet 07/30/18 01/20/20 Loperamide [Imodium] 2 mg PO TID PRN 04/29/19 01/20/20 Tolnaftate [Tinactin] 108 gm TP BID #1 powder 05/29/19 01/20/20 Fluconazole [Diflucan] 150 mg PO DAILY #14 tablet 08/25/19 01/20/20 Cod Liver Oil/Zinc Oxide [Desitin] 1 applic TOP TID 14 Days #1 tube 09/03/19 01/20/20 Fluconazole [Diflucan] 100 mg PO DAILY #3 tablet 01/10/20 01/20/20 Nitrofurantoin [Macrobid] 100 mg PO BID #10 capsule 01/10/20 01/20/20 Cephalexin [Keflex] 500 mg PO QID 10 Days #40 capsule 02/05/20 - Allergies Allergies/Adverse Reactions: Allergies Allergy/AdvReac Type Severity Reaction Status Date / Time paroxetine HCl * [From Paxil] AdvReac Intermediate Emesis Verified 01/09/20 21:55 codeine [Codeine] AdvReac Pass Out Verified 01/09/20 21:55 PD ED PE NORMAL - Vitals Vital signs reviewed: Yes - General General: Alert and oriented X 3, No acute distress - HEENT HEENT: PERRL - Neck Neck: Supple, no meningeal sign - Cardiac Cardiac: RRR, No murmur - Respiratory Respiratory: Clear bilaterally - Abdomen Abdomen: Normal bowel sounds, Soft, Non tender, Non distended, Other (Suprapubic Epps catheter in place with no signs of obstruction) - Derm Derm: Warm and dry - Extremities Extremities: No deformity - Neuro Neuro: Alert and oriented X 3 - Psych Psych: Normal mood, Normal affect Results - Vitals Vitals: Vital Signs - 24 hr 02/04/20 02/05/20 23:10 00:20 Temperature 36.6 C 36.1 C L Heart Rate 79 71 Respiratory 14 18 Rate Blood Pressure 105/55 L 118/85 H O2 Saturation 98 100 Oxygen O2 Source Room air - Labs Labs: Laboratory Tests 02/04/20 23:20 Urine Color YELLOW Urine Clarity SL. CLOUDY Urine pH 6.0 Ur Specific [place] >=1.030 H Urine Protein 30 H Urine Glucose (UA) NEGATIVE Urine Ketones NEGATIVE Urine Occult Blood SMALL H Urine Nitrite POSITIVE H Urine Bilirubin NEGATIVE Urine Urobilinogen 0.2 (NORMAL) Ur Leukocyte Esterase MODERATE H Urine RBC 0-5 Urine WBC >25 H Ur Squamous Epith Cells RARE Squamous Urine Crystals 3-5 Calcium Oxalate Urine Bacteria Moderate H Ur Microscopic Review INDICATED Urine Culture Comments INDICATED PD MEDICAL DECISION MAKING - ED course Complexity details: reviewed results, re-evaluated patient, considered differential (Urinary tract infection), d/w patient, other (Will treat with Rocephin and prescription provided for oral Keflex on as an outpatient.) Departure - Departure Disposition: 01 Home, Self Care Clinical Impression: Dysuria UTI (urinary tract infection) Qualifiers: Urinary tract infection type: catheter-associated UTI Indwelling urinary catheter type: cystostomy catheter Encounter type: subsequent encounter Qualified Code(s): T83.510D - Infection and inflammatory reaction due to cystostomy catheter, subsequent encounter Condition: Stable Instructions: ED UTI Cystitis Female Follow-Up: your, doctor [Other] - Tomorrow Prescriptions: Cephalexin [Keflex] 500 mg PO QID 10 Days #40 capsule Comments: Take antibiotics as directed. Follow-up with your primary care Doctor on Thursday
[2020-02-04 23:32] LABS: BILIRUBIN,URINE NEGATIVE (NEGATIVE); GLUCOSE, URINE (UA) NEGATIVE (NEGATIVE); KETONES,URINE (UA) NEGATIVE (NEGATIVE); LEUKOCYTE ESTERASE, URINE MODERATE (NEGATIVE); NITRITE,URINE POSITIVE (NEGATIVE); OCCULT BLOOD,URINE SMALL (NEGATIVE); PROTEIN,URINE 30 mg/dL (NEGATIVE); UROBILINOGEN,URINE 0.2 (NORMAL) E.U./dL (NORMAL)
[2020-02-04 23:34] LABS: CLARITY,URINE SL. CLOUDY (CLEAR)
[2020-02-04 23:43] LABS: BACTERIA,URINE Moderate /HPF (None Seen); CRYSTALS,URINE 3-5 Calcium Oxalate /LPF; RBC,URINE 0-5 /HPF (0-5); SQUAMOUS EPITHELIAL CELL,UR RARE Squamous (<= Few)
[2020-02-04] MEDS ORDERED: LIDOCAINE 1% 2 ML VIAL MC ONE (23:48)
[2020-02-04] MEDS ORDERED: cefTRIAXone 1 GM VIAL IM STA (23:48)
[2020-02-05 00:21] VITALS: BP 118/85
== END 2020-02-05 00:52 | disposition home or self-care (01) ==
LOC: EDUNIT# → ED 23:07
DX: T83.510A Infection and inflammatory reaction due to cystostomy catheter, initial encounter (principal); Y84.6 Urinary catheterization as the cause of abnormal reaction of the patient, or of later complication, without mention of misadventure at the time of the procedure; G80.9 Cerebral palsy, unspecified
CPT/HCPCS: 81001; 81003; 87086; 87181; 96372; 99283

== ENCOUNTER 2020-02-05 00:53 | Outpatient (CLI) | payer MEDICARE, MEDICAID | END 2020-02-05 00:54 | disposition home or self-care (01) | LOC: EMS 00:53 | PROVIDERS: ATTEND Surgery | DX: T83.9XXA Unspecified complication of genitourinary prosthetic device, implant and graft, initial encounter (principal); N39.0 Urinary tract infection, site not specified | CPT/HCPCS: A0425; A0428 ==

== ENCOUNTER 2020-03-28 03:53 | Outpatient (CLI) | payer MEDICARE, MEDICAID | END 2020-03-28 03:54 | disposition critical access hospital (66) | LOC: EMS 03:53 | PROVIDERS: ATTEND Surgery | DX: T83.038A Leakage of other urinary catheter, initial encounter (principal); G80.9 Cerebral palsy, unspecified | CPT/HCPCS: A0425; A0429 ==

== ENCOUNTER 2020-03-28 04:21 | Emergency (ER) | payer MEDICARE, MEDICAID ==
--- NOTE | 2020-03-28 04:24 | ED Physician Documentation ---
PD HPI FEMALE - Stated complaint Stated Complaint: LEAKING CATH - History obtained from History obtained from: Patient, EMS - History of Present Illness Timing - onset: Today Timing - details: Abrupt onset Pain level max: 0 Associated symptoms: No: Fever, Pelvic pain Similar symptoms before: Diagnosis (UTI) - Additional information Additional information: patient has suprapubic catheter for many years, has it changed several times per year. She noted urine leaking around the catheter insertion site since last night and notes the urine has been thick x 1-2 days. Review of Systems Constitutional: denies: Fever : reports: Epps Problem (suprapubic catheter). denies: Unable to Void PD PAST MEDICAL HISTORY - Past Medical History Past Medical History: Yes Neuro: Cerebral palsy - Present Medications Home Medications: Ambulatory Orders Medication Instructions Recorded Confirmed Dexlansoprazole [Dexilant] 60 mg PO DAILY 04/27/13 01/20/20 Propranolol [Inderal] 20 mg PO TID 04/27/13 01/20/20 Enalapril [Vasotec] 5 mg ORAL DAILY 05/14/14 01/20/20 Nystatin Cream [Mycostatin Cream] 1 applic TOP BID PRN #60 g 12/30/15 01/20/20 Citalopram Hydrobromide [Celexa] 10 mg PO DAILY 08/22/16 01/20/20 Oxybutynin Chloride [Ditropan Xl] 10 mg PO DAILY 01/23/17 01/20/20 Quetiapine Fumarate [Seroquel Xr] 300 mg PO DAILY PM 01/23/17 01/20/20 oxyCODONE/ACET 5/325 [Percocet 5 1 - 2 tab PO PRN PRN MDD 4 03/16/17 01/20/20 mg/325 mg] Zolpidem Tartrate [Ambien] 10 mg PO QPM PRN 06/05/17 01/20/20 Topiramate 25 mg PO BID 07/31/17 01/20/20 Aripiprazole [Abilify] 20 mg PO DAILY 08/28/17 01/20/20 Hydrocortisone 1% Oint 1 gm TP TID PRN 08/28/17 01/20/20 [Hydrocortisone] buPROPion [Wellbutrin Sr] 150 mg PO BID 08/28/17 01/20/20 Miconazole Nitrate 1 gm TP TID #5 cream..g. 03/26/18 01/20/20 hydrOXYzine pamoate [Hydroxyzine 25 mg PO ONCE PRN 07/09/18 01/20/20 Pamoate] Ferrous Sulfate 325 mg PO BID #60 tablet 07/30/18 01/20/20 Loperamide [Imodium] 2 mg PO TID PRN 04/29/19 01/20/20 Tolnaftate [Tinactin] 108 gm TP BID #1 powder 05/29/19 01/20/20 Fluconazole [Diflucan] 150 mg PO DAILY #14 tablet 08/25/19 01/20/20 Cod Liver Oil/Zinc Oxide [Desitin] 1 applic TOP TID 14 Days #1 tube 09/03/19 01/20/20 Fluconazole [Diflucan] 100 mg PO DAILY #3 tablet 01/10/20 01/20/20 Nitrofurantoin [Macrobid] 100 mg PO BID #10 capsule 01/10/20 01/20/20 Cephalexin [Keflex] 500 mg PO QID 10 Days #40 capsule 02/05/20 Nitrofurantoin Monohyd/M-Cryst 100 mg PO BID #14 capsule 03/28/20 [Macrobid 100 mg Capsule] Nystatin Cream [Mycostatin Cream] 1 film TOP BID PRN #60 g 03/28/20 - Allergies Allergies/Adverse Reactions: Allergies Allergy/AdvReac Type Severity Reaction Status Date / Time paroxetine HCl * [From Paxil] AdvReac Intermediate Emesis Verified 01/09/20 21:55 codeine [Codeine] AdvReac Pass Out Verified 01/09/20 21:55 PD ED PE NORMAL - Vitals Vital signs reviewed: Yes - General General: Alert and oriented X 3, No acute distress, Well developed/nourished - Abdomen Abdomen: Soft, Non tender, Other (suprapubic catheter in place, mild erythema in panus but not at catheter site) Results - Vitals Vitals: Vital Signs - 24 hr 03/28/20 03/28/20 04:22 07:06 Temperature 36.2 C L Heart Rate 85 76 Respiratory 16 16 Rate Blood Pressure 100/84 H 142/80 H O2 Saturation 100 95 Oxygen O2 Source Room air - Labs Labs: Laboratory Tests 03/28/20 05:20 Urine Color YELLOW Urine Clarity HAZY Urine pH 7.0 Ur Specific [place] 1.020 Urine Protein TRACE Urine Glucose (UA) NEGATIVE Urine Ketones NEGATIVE Urine Occult Blood TRACE-INTA Urine Nitrite POSITIVE H Urine Bilirubin NEGATIVE Urine Urobilinogen 0.2 (NORMAL) Ur Leukocyte Esterase MODERATE H Urine RBC 0-5 Urine WBC >25 H Ur Squamous Epith Cells RARE Squamous Urine Bacteria Many H Ur Microscopic Review INDICATED Urine Culture Comments INDICATED PD MEDICAL DECISION MAKING - ED course Complexity details: reviewed old records, reviewed results, re-evaluated patient, considered differential, d/w patient ED course: suprapubic catheter changed. UA s/o UTI, patient says she feels that she has a UTI based on the appearance of the urine and that it is leaking around the catheter insertion site. Rx macrobid with first dose now. Also requests medication for the rash in her panus Departure - Departure Disposition: 01 Home, Self Care Clinical Impression: Urinary catheter change required Urinary tract infection Qualifiers: Urinary tract infection type: catheter-associated UTI Indwelling urinary catheter type: cystostomy catheter Encounter type: initial encounter Qualified Code(s): T83.510A - Infection and inflammatory reaction due to cystostomy catheter, initial encounter Condition: Good Instructions: ED UTI Cystitis Female Follow-Up: COLBY SO MD [Primary Care Provider] - Prescriptions: Nitrofurantoin Monohyd/M-Cryst [Macrobid 100 mg Capsule] 100 mg PO BID #14 capsule Nystatin Cream [Mycostatin Cream] 1 film TOP BID PRN #60 g PRN Reason: As Needed Per Provider Orders Discharge Date/Time: 03/28/20 07:06
[2020-03-28] MEDS ORDERED: LIDOCAINE 2% URO-JET 5 ML SYRINGE UR STA (04:37)
[2020-03-28] MEDS ORDERED: FLUCONAZOLE 100 MG TABLET PO STA (05:02)
[2020-03-28 05:46] LABS: BILIRUBIN,URINE NEGATIVE (NEGATIVE); GLUCOSE, URINE (UA) NEGATIVE (NEGATIVE); KETONES,URINE (UA) NEGATIVE (NEGATIVE); LEUKOCYTE ESTERASE, URINE MODERATE (NEGATIVE); NITRITE,URINE POSITIVE (NEGATIVE); OCCULT BLOOD,URINE TRACE-INTA (NEGATIVE); PROTEIN,URINE TRACE mg/dL (NEGATIVE); UROBILINOGEN,URINE 0.2 (NORMAL) E.U./dL (NORMAL)
[2020-03-28 05:47] LABS: CLARITY,URINE HAZY (CLEAR)
[2020-03-28 05:58] LABS: BACTERIA,URINE Many /HPF (None Seen); RBC,URINE 0-5 /HPF (0-5); SQUAMOUS EPITHELIAL CELL,UR RARE Squamous (<= Few)
[2020-03-28] MEDS ORDERED: NITROFURANTOIN MACRO 100 MG CAPSULE PO STA (06:04)
[2020-03-28 07:06] VITALS: BP 142/80
== END 2020-03-28 07:06 | disposition home or self-care (01) ==
LOC: ED 04:21
DX: T83.510A Infection and inflammatory reaction due to cystostomy catheter, initial encounter (principal)
CPT/HCPCS: 51702; 81001; 87077; 87086; 87181; 99283; A9270; 81003

== ENCOUNTER 2020-03-28 07:16 | Outpatient (CLI) | payer MEDICARE, MEDICAID | END 2020-03-28 07:17 | disposition home or self-care (01) | LOC: EMS 07:16 | PROVIDERS: ATTEND Surgery | DX: T83.098A Other mechanical complication of other urinary catheter, initial encounter (principal) | CPT/HCPCS: A0425; A0428 ==

== ENCOUNTER 2020-04-22 12:32 | Outpatient (CLI) | payer MEDICARE, MEDICAID | END 2020-04-22 12:33 | disposition critical access hospital (66) | LOC: EMS 12:32 | PROVIDERS: ATTEND Surgery | DX: T83.030A Leakage of cystostomy catheter, initial encounter (principal) | CPT/HCPCS: A0425; A0429 ==

== ENCOUNTER 2020-04-22 12:55 | Emergency (ER) | payer MEDICARE, MEDICAID ==
--- NOTE | 2020-04-22 13:51 | ED Physician Documentation ---
History of Present Illness - Stated complaint Stated Complaint: CATH ISSUE - Chief complaint Chief Complaint: Abd Pain - History obtained from History obtained from: Patient, EMS - History of Present Illness Timing: Today Pain level max: 0 Pain level now: 0 - Additonal information Additional information: 50-year-old female presents to the emergency department stating that she has a chronic indwelling suprapubic Epps catheter. She states that it has been leaking and would like it changed. No fevers. No vomiting. No abdominal pain. Nothing makes it better or worse. 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 : Indwelling catheter HEENT: Chronic vision loss Psych: Depression, Anxiety, Bipolar disorder, Post traumatic stress disorder Musculoskeletal: Osteoarthritis, Other Derm: Psoriasis - Past Surgical History Past Surgical History: Yes General: Hiatal hernia repair, EGD Ortho: Other /ASE CERTIFIED TECHNICIAN: section, Hysterectomy - Present Medications Home Medications: Ambulatory Orders Medication Instructions Recorded Confirmed Dexlansoprazole [Dexilant] 60 mg PO DAILY 04/27/13 01/20/20 Propranolol [Inderal] 20 mg PO TID 04/27/13 01/20/20 Enalapril [Vasotec] 5 mg ORAL DAILY 05/14/14 01/20/20 Nystatin Cream [Mycostatin Cream] 1 applic TOP BID PRN #60 g 12/30/15 01/20/20 Citalopram Hydrobromide [Celexa] 10 mg PO DAILY 08/22/16 01/20/20 Oxybutynin Chloride [Ditropan Xl] 10 mg PO DAILY 01/23/17 01/20/20 Quetiapine Fumarate [Seroquel Xr] 300 mg PO DAILY PM 01/23/17 01/20/20 oxyCODONE/ACET 5/325 [Percocet 5 1 - 2 tab PO PRN PRN MDD 4 03/16/17 01/20/20 mg/325 mg] Zolpidem Tartrate [Ambien] 10 mg PO QPM PRN 06/05/17 01/20/20 Topiramate 25 mg PO BID 07/31/17 01/20/20 Aripiprazole [Abilify] 20 mg PO DAILY 08/28/17 01/20/20 Hydrocortisone 1% Oint 1 gm TP TID PRN 08/28/17 01/20/20 [Hydrocortisone] buPROPion [Wellbutrin Sr] 150 mg PO BID 08/28/17 01/20/20 Miconazole Nitrate 1 gm TP TID #5 cream..g. 03/26/18 01/20/20 hydrOXYzine pamoate [Hydroxyzine 25 mg PO ONCE PRN 07/09/18 01/20/20 Pamoate] Ferrous Sulfate 325 mg PO BID #60 tablet 07/30/18 01/20/20 Loperamide [Imodium] 2 mg PO TID PRN 04/29/19 01/20/20 Tolnaftate [Tinactin] 108 gm TP BID #1 powder 05/29/19 01/20/20 Fluconazole [Diflucan] 150 mg PO DAILY #14 tablet 08/25/19 01/20/20 Cod Liver Oil/Zinc Oxide [Desitin] 1 applic TOP TID 14 Days #1 tube 09/03/19 01/20/20 Fluconazole [Diflucan] 100 mg PO DAILY #3 tablet 01/10/20 01/20/20 Nitrofurantoin [Macrobid] 100 mg PO BID #10 capsule 01/10/20 01/20/20 Cephalexin [Keflex] 500 mg PO QID 10 Days #40 capsule 02/05/20 Nitrofurantoin Monohyd/M-Cryst 100 mg PO BID #14 capsule 03/28/20 [Macrobid 100 mg Capsule] Nystatin Cream [Mycostatin Cream] 1 film TOP BID PRN #60 g 03/28/20 - Allergies Allergies/Adverse Reactions: Allergies Allergy/AdvReac Type Severity Reaction Status Date / Time paroxetine HCl * [From Paxil] AdvReac Intermediate Emesis Verified 04/22/20 13:09 codeine [Codeine] AdvReac Pass Out Verified 04/22/20 13:09 - Social History Does the pt smoke?: No Smoking Status: Never smoker Does the pt drink ETOH?: No Does the pt have substance abuse?: No - Immunizations Immunizations are current?: Yes - POLST Patient has POLST: No PD ED PE NORMAL - Vitals Vital signs reviewed: Yes - General General: Alert and oriented X 3, No acute distress - HEENT HEENT: Moist mucous membranes - Neck Neck: Supple, no meningeal sign - Derm Derm: Warm and dry - Neuro Neuro: Alert and oriented X 3 Results - Vitals Vitals: Vital Signs - 24 hr 04/22/20 13:02 Temperature 37 C Heart Rate 74 Respiratory 18 Rate Blood Pressure 108/82 H O2 Saturation 96 Oxygen O2 Source Room air PD MEDICAL DECISION MAKING - ED course Complexity details: considered differential, d/w patient ED course: Epps catheter was replaced. Tolerated well. No emergency medical condition at this time. Departure - Departure Disposition: 01 Home, Self Care Clinical Impression: Encounter for Epps catheter replacement Condition: Good Instructions: ED Catheter Care Epps Follow-Up: Bennie Hill MD [Primary Care Provider] - Within 1 week Comments: You should talk to Dr. Hill about having your catheter changed every 2 weeks rather than every 3 weeks.
[2020-04-22 14:52] VITALS: BP 95/56
== END 2020-04-22 14:51 | disposition home or self-care (01) ==
LOC: EDUNIT# → ED 12:55
DX: T83.038A Leakage of other urinary catheter, initial encounter (principal); Y84.6 Urinary catheterization as the cause of abnormal reaction of the patient, or of later complication, without mention of misadventure at the time of the procedure; G80.9 Cerebral palsy, unspecified
CPT/HCPCS: 51702; 99282; 99283

== ENCOUNTER 2020-04-22 14:51 | Outpatient (CLI) | payer MEDICARE, MEDICAID | END 2020-04-22 14:52 | disposition home or self-care (01) | LOC: EMS 14:51 | PROVIDERS: ATTEND Surgery | DX: T83.098A Other mechanical complication of other urinary catheter, initial encounter (principal); G80.8 Other cerebral palsy; Z74.01 Bed confinement status | CPT/HCPCS: A0425; A0428 ==

== ENCOUNTER 2020-04-28 09:46 | Outpatient (CLI) | payer MEDICARE, MEDICAID | END 2020-04-28 09:47 | disposition critical access hospital (66) | LOC: EMS 09:46 | PROVIDERS: ATTEND Surgery | DX: T83.098A Other mechanical complication of other urinary catheter, initial encounter (principal) | CPT/HCPCS: A0425; A0429 ==

== ENCOUNTER 2020-04-28 10:10 | Emergency (ER) | payer MEDICARE, MEDICAID ==
--- NOTE | 2020-04-28 10:42 | ED Physician Documentation ---
PD HPI FEMALE - Stated complaint Stated Complaint: FEM - Chief complaint Chief Complaint: Abd Pain - History obtained from History obtained from: Patient, EMS - History of Present Illness Timing - onset: Today Timing - duration: Hours Timing - details: Gradual onset, Still present Associated symptoms: Other (butcher not draining) Contributing factors: No: Similar symptoms before: Diagnosis (UTI and suprapubic catheter clogging.) Recently seen: Emergency Dept - Additional information Additional information: 50-year-old female with a history of cerebral severe cerebral palsy who is bedbound and has a indwelling suprapubic catheter has had her catheter clog and she believes she has infection. She was last in here 6 days ago with a catheter clogging the catheter was changed. She is not currently on antibiotic. 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 : Indwelling catheter HEENT: Chronic vision loss Psych: Depression, Anxiety, Bipolar disorder, Post traumatic stress disorder Musculoskeletal: Osteoarthritis, Other Derm: Psoriasis - Past Surgical History Past Surgical History: Yes General: Hiatal hernia repair, EGD Ortho: Other /CURB BUILDER: section, Hysterectomy - Present Medications Home Medications: Ambulatory Orders Medication Instructions Recorded Confirmed Dexlansoprazole [Dexilant] 60 mg PO DAILY 04/27/13 01/20/20 Propranolol [Inderal] 20 mg PO TID 04/27/13 01/20/20 Enalapril [Vasotec] 5 mg ORAL DAILY 05/14/14 01/20/20 Nystatin Cream [Mycostatin Cream] 1 applic TOP BID PRN #60 g 12/30/15 01/20/20 Citalopram Hydrobromide [Celexa] 10 mg PO DAILY 08/22/16 01/20/20 Oxybutynin Chloride [Ditropan Xl] 10 mg PO DAILY 01/23/17 01/20/20 Quetiapine Fumarate [Seroquel Xr] 300 mg PO DAILY PM 01/23/17 01/20/20 oxyCODONE/ACET 5/325 [Percocet 5 1 - 2 tab PO PRN PRN MDD 4 03/16/17 01/20/20 mg/325 mg] Zolpidem Tartrate [Ambien] 10 mg PO QPM PRN 06/05/17 01/20/20 Topiramate 25 mg PO BID 07/31/17 01/20/20 Aripiprazole [Abilify] 20 mg PO DAILY 08/28/17 01/20/20 Hydrocortisone 1% Oint 1 gm TP TID PRN 08/28/17 01/20/20 [Hydrocortisone] buPROPion [Wellbutrin Sr] 150 mg PO BID 08/28/17 01/20/20 Miconazole Nitrate 1 gm TP TID #5 cream..g. 03/26/18 01/20/20 hydrOXYzine pamoate [Hydroxyzine 25 mg PO ONCE PRN 07/09/18 01/20/20 Pamoate] Ferrous Sulfate 325 mg PO BID #60 tablet 07/30/18 01/20/20 Loperamide [Imodium] 2 mg PO TID PRN 04/29/19 01/20/20 Tolnaftate [Tinactin] 108 gm TP BID #1 powder 05/29/19 01/20/20 Fluconazole [Diflucan] 150 mg PO DAILY #14 tablet 08/25/19 01/20/20 Cod Liver Oil/Zinc Oxide [Desitin] 1 applic TOP TID 14 Days #1 tube 09/03/19 01/20/20 Fluconazole [Diflucan] 100 mg PO DAILY #3 tablet 01/10/20 01/20/20 Nitrofurantoin [Macrobid] 100 mg PO BID #10 capsule 01/10/20 01/20/20 Cephalexin [Keflex] 500 mg PO QID 10 Days #40 capsule 02/05/20 Nitrofurantoin Monohyd/M-Cryst 100 mg PO BID #14 capsule 03/28/20 [Macrobid 100 mg Capsule] Nystatin Cream [Mycostatin Cream] 1 film TOP BID PRN #60 g 03/28/20 Amox/Clav 875/125 [Augmentin] 1 each PO Q12H #14 tablet 04/28/20 - Allergies Allergies/Adverse Reactions: Allergies Allergy/AdvReac Type Severity Reaction Status Date / Time paroxetine HCl * [From Paxil] AdvReac Intermediate Emesis Verified 04/28/20 10:14 codeine [Codeine] AdvReac Pass Out Verified 04/28/20 10:14 - Social History Does the pt smoke?: No Smoking Status: Former smoker Does the pt drink ETOH?: No Does the pt have substance abuse?: No - Immunizations Immunizations are current?: Yes - POLST Patient has POLST: No PD ED PE NORMAL - Vitals Vital signs reviewed: Yes (Hypertensive) - General General: Alert and oriented X 3, No acute distress, Well developed/nourished, Other (50-year-old female lying supine on a gurney) - HEENT HEENT: Atraumatic - Respiratory Respiratory: No respiratory distress - Abdomen Abdomen: Soft, Non tender, Other (suprapubic cath site without signs of inflamation ) - Back Back: No CVA TTP - Derm Derm: Normal color, Warm and dry, No rash - Neuro Neuro: Alert and oriented X 3, Normal speech Eye Opening: Spontaneous Motor: Obeys Commands Verbal: Oriented GCS Score: 15 - Psych Psych: Normal mood, Normal affect Results - Vitals Vitals: Vital Signs - 24 hr 04/28/20 04/28/20 04/28/20 10:14 11:48 12:47 Temperature 36.5 C 36.6 C 36.8 C Heart Rate 70 62 60 Respiratory 16 18 20 Rate Blood Pressure 155/108 H 159/78 H 126/92 H O2 Saturation 98 99 99 04/28/20 14:39 Temperature 36.8 C Heart Rate 62 Respiratory 18 Rate Blood Pressure 172/74 H O2 Saturation 100 Oxygen O2 Source Room air - Labs Labs: Laboratory Tests 04/28/20 11:15 Urine Color LIGHT YELLOW Urine Clarity CLOUDY Urine pH 6.0 Ur Specific [place] <=1.005 Urine Protein NEGATIVE Urine Glucose (UA) NEGATIVE Urine Ketones NEGATIVE Urine Occult Blood LARGE H Urine Nitrite NEGATIVE Urine Bilirubin NEGATIVE Urine Urobilinogen 0.2 (NORMAL) Ur Leukocyte Esterase LARGE H Urine RBC 6-10 H Urine WBC >25 H Urine WBC Clumps PRESENT Ur Epithelial Cells RARE Renal Tubular Ur Squamous Epith Cells FEW Squamous Urine Bacteria Many H Ur Microscopic Review INDICATED Urine Culture Comments INDICATED PD MEDICAL DECISION MAKING - ED course Complexity details: reviewed old records, reviewed results, re-evaluated patient, considered differential, d/w patient ED course: 50-year-old female with cerebral palsy and indwelling suprapubic catheter has a clogged catheter and infection. Catheter is replaced and we will place her on a course of antibiotic. Departure - Departure Disposition: 01 Home, Self Care Clinical Impression: Urinary catheter change required Urinary tract infection Qualifiers: Urinary tract infection type: catheter-associated UTI Indwelling urinary catheter type: cystostomy catheter Encounter type: initial encounter Qualified Code(s): T83.510A - Infection and inflammatory reaction due to cystostomy catheter, initial encounter Condition: Stable Instructions: ED UTI Cystitis Female Follow-Up: Bennie Hill MD [Primary Care Provider] - Prescriptions: Amox/Clav 875/125 [Augmentin] 1 each PO Q12H #14 tablet Discharge Date/Time: 04/28/20 14:40
[2020-04-28] MEDS ORDERED: LIDOCAINE 2% URO-JET 5 ML SYRINGE UR STA (10:57)
[2020-04-28 11:41] LABS: BILIRUBIN,URINE NEGATIVE (NEGATIVE); GLUCOSE, URINE (UA) NEGATIVE (NEGATIVE); KETONES,URINE (UA) NEGATIVE (NEGATIVE); LEUKOCYTE ESTERASE, URINE LARGE (NEGATIVE); NITRITE,URINE NEGATIVE (NEGATIVE); OCCULT BLOOD,URINE LARGE (NEGATIVE); PROTEIN,URINE NEGATIVE (NEGATIVE); UROBILINOGEN,URINE 0.2 (NORMAL) E.U./dL (NORMAL)
[2020-04-28 11:43] LABS: CLARITY,URINE CLOUDY (CLEAR)
[2020-04-28 11:54] LABS: BACTERIA,URINE Many /HPF (None Seen); SQUAMOUS EPITHELIAL CELL,UR FEW Squamous (<= Few); WBC CLUMPS,URINE PRESENT
[2020-04-28 14:40] VITALS: BP 172/74
== END 2020-04-28 14:40 | disposition home or self-care (01) ==
LOC: EDUNIT# → ED 10:10
DX: T83.510A Infection and inflammatory reaction due to cystostomy catheter, initial encounter (principal); G80.9 Cerebral palsy, unspecified; Z87.891 Personal history of nicotine dependence
CPT/HCPCS: 51702; 81001; 81003; 87086; 99283

== ENCOUNTER 2020-04-28 14:42 | Outpatient (CLI) | payer MEDICARE, MEDICAID | END 2020-04-28 14:43 | disposition home or self-care (01) | LOC: EMS 14:42 | PROVIDERS: ATTEND Surgery | DX: T83.090A Other mechanical complication of cystostomy catheter, initial encounter (principal); G80.9 Cerebral palsy, unspecified; Z99.3 Dependence on wheelchair | CPT/HCPCS: A0425; A0428 ==

== ENCOUNTER 2020-05-21 15:30 | Outpatient (CLI) | payer MEDICARE, MEDICAID | END 2020-05-21 15:31 | disposition critical access hospital (66) | LOC: EMS 15:30 | PROVIDERS: ATTEND Surgery | DX: T85.618A Breakdown (mechanical) of other specified internal prosthetic devices, implants and grafts, initial encounter (principal) | CPT/HCPCS: A0425; A0429 ==

== ENCOUNTER 2020-05-21 15:53 | Emergency (ER) | payer MEDICARE, MEDICAID ==
--- NOTE | 2020-05-21 17:11 | ED Physician Documentation ---
History of Present Illness - Stated complaint Stated Complaint: FEM - Chief complaint Chief Complaint: General - History obtained from History obtained from: Patient - Additonal information Additional information: Patient comes emergency department complaining that her suprapubic catheter is clogged. She states that her pet indicated to her that she was about to have a clogged catheter, and that she has noticed that the urine drainage is less than usual. Patient states this happens frequently. She denies abdominal pain or fevers. No chills or shakes. No other complaints at this time. Review of Systems Ten Systems: 10 systems reviewed and negative Constitutional: reports: Reviewed and negative Eyes: reports: Reviewed and negative Ears: reports: Reviewed and negative Nose: reports: Reviewed and negative Throat: reports: Reviewed and negative Cardiac: reports: Reviewed and negative Respiratory: reports: Reviewed and negative GI: reports: Reviewed and negative : reports: Epps Problem Skin: reports: Reviewed and negative Musculoskeletal: reports: Reviewed and negative Neurologic: reports: Reviewed and negative Psychiatric: reports: Reviewed and negative Endocrine: reports: Reviewed and negative Immunocompromised: reports: Reviewed and negative PD PAST MEDICAL HISTORY - Past Medical History Cardiovascular: Hypertension Respiratory: Asthma, Other Neuro: Cerebral palsy Endocrine/Autoimmune: Other GI: GERD 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 : Indwelling catheter HEENT: Chronic vision loss Psych: Depression, Anxiety, Bipolar disorder, Post traumatic stress disorder Musculoskeletal: Osteoarthritis, Other Derm: Psoriasis - Past Surgical History Past Surgical History: Yes General: Hiatal hernia repair, EGD Ortho: Other /SHELL SORTER: section, Hysterectomy - Present Medications Home Medications: Ambulatory Orders Medication Instructions Recorded Confirmed Dexlansoprazole [Dexilant] 60 mg PO DAILY 04/27/13 01/20/20 Propranolol [Inderal] 20 mg PO TID 04/27/13 01/20/20 Enalapril [Vasotec] 5 mg ORAL DAILY 05/14/14 01/20/20 Nystatin Cream [Mycostatin Cream] 1 applic TOP BID PRN #60 g 12/30/15 01/20/20 Citalopram Hydrobromide [Celexa] 10 mg PO DAILY 08/22/16 01/20/20 Oxybutynin Chloride [Ditropan Xl] 10 mg PO DAILY 01/23/17 01/20/20 Quetiapine Fumarate [Seroquel Xr] 300 mg PO DAILY PM 01/23/17 01/20/20 oxyCODONE/ACET 5/325 [Percocet 5 1 - 2 tab PO PRN PRN MDD 4 03/16/17 01/20/20 mg/325 mg] Zolpidem Tartrate [Ambien] 10 mg PO QPM PRN 06/05/17 01/20/20 Topiramate 25 mg PO BID 07/31/17 01/20/20 Aripiprazole [Abilify] 20 mg PO DAILY 08/28/17 01/20/20 Hydrocortisone 1% Oint 1 gm TP TID PRN 08/28/17 01/20/20 [Hydrocortisone] buPROPion [Wellbutrin Sr] 150 mg PO BID 08/28/17 01/20/20 Miconazole Nitrate 1 gm TP TID #5 cream..g. 03/26/18 01/20/20 hydrOXYzine pamoate [Hydroxyzine 25 mg PO ONCE PRN 07/09/18 01/20/20 Pamoate] Ferrous Sulfate 325 mg PO BID #60 tablet 07/30/18 01/20/20 Loperamide [Imodium] 2 mg PO TID PRN 04/29/19 01/20/20 Tolnaftate [Tinactin] 108 gm TP BID #1 powder 05/29/19 01/20/20 Fluconazole [Diflucan] 150 mg PO DAILY #14 tablet 08/25/19 01/20/20 Cod Liver Oil/Zinc Oxide [Desitin] 1 applic TOP TID 14 Days #1 tube 09/03/19 01/20/20 Fluconazole [Diflucan] 100 mg PO DAILY #3 tablet 01/10/20 01/20/20 Nitrofurantoin [Macrobid] 100 mg PO BID #10 capsule 01/10/20 01/20/20 Cephalexin [Keflex] 500 mg PO QID 10 Days #40 capsule 02/05/20 Nitrofurantoin Monohyd/M-Cryst 100 mg PO BID #14 capsule 03/28/20 [Macrobid 100 mg Capsule] Nystatin Cream [Mycostatin Cream] 1 film TOP BID PRN #60 g 03/28/20 Amox/Clav 875/125 [Augmentin] 1 each PO Q12H #14 tablet 04/28/20 - Allergies Allergies/Adverse Reactions: Allergies Allergy/AdvReac Type Severity Reaction Status Date / Time paroxetine HCl * [From Paxil] AdvReac Intermediate Emesis Verified 04/28/20 10:14 codeine [Codeine] AdvReac Pass Out Verified 04/28/20 10:14 - Social History Does the pt smoke?: No Smoking Status: Never smoker Does the pt drink ETOH?: No Does the pt have substance abuse?: No - Immunizations Immunizations are current?: Yes - POLST Patient has POLST: No PD ED PE NORMAL - Vitals Vital signs reviewed: Yes - General General: Alert and oriented X 3, No acute distress - HEENT HEENT: Atraumatic, PERRL, EOMI, Moist mucous membranes - Neck Neck: Supple, no meningeal sign - Cardiac Cardiac: RRR, No murmur - Respiratory Respiratory: No respiratory distress, Clear bilaterally - Abdomen Abdomen: Soft, Non tender, Non distended, Other (Suprapubic catheter in place. Insertion site is healthy-appearing. Sediment noted in tube.) - Derm Derm: Warm and dry - Extremities Extremities: No deformity - Neuro Neuro: Alert and oriented X 3 - Psych Psych: Normal mood, Normal affect Results - Vitals Vitals: Vital Signs - 24 hr 05/21/20 05/21/20 16:00 16:12 Temperature 36.0 C L Heart Rate 70 79 Respiratory 16 99 H Rate Blood Pressure 109/98 H 132/67 H O2 Saturation 96 16 L Oxygen O2 Source Room air PD MEDICAL DECISION MAKING - ED course Complexity details: considered differential, d/w patient ED course: 24 [place] suprapubic catheter was replaced in the emergency department by nurse and myself. Prior to the procedure, bladder scanner showed there to be a 99 cc of urine in the bladder. Catheter was placed without incident. We have discussed the need for follow-up. Departure - Departure Disposition: 01 Home, Self Care Clinical Impression: Urinary catheter change required Condition: Stable Instructions: ED Catheter Care Epps
[2020-05-21 17:35] VITALS: BP 139/95
== END 2020-05-21 18:32 | disposition home or self-care (01) ==
LOC: EDUNIT# → ED 15:53
DX: T83.090A Other mechanical complication of cystostomy catheter, initial encounter (principal); Y84.6 Urinary catheterization as the cause of abnormal reaction of the patient, or of later complication, without mention of misadventure at the time of the procedure; G80.9 Cerebral palsy, unspecified; I10 Essential (primary) hypertension
CPT/HCPCS: 51705

== ENCOUNTER 2020-05-21 18:36 | Outpatient (CLI) | payer MEDICARE, MEDICAID | END 2020-05-21 18:37 | disposition home or self-care (01) | LOC: EMS 18:36 | PROVIDERS: ATTEND Surgery | DX: R54 Age-related physical debility (principal); G82.50 Quadriplegia, unspecified | CPT/HCPCS: A0425; A0428 ==

== ENCOUNTER 2020-07-04 08:30 | Emergency (ER) | payer MEDICARE, MEDICAID ==
--- NOTE | 2020-07-04 08:35 | ED Physician Documentation ---
PD HPI FEMALE - Stated complaint Stated Complaint: FEMALE - History obtained from History obtained from: Patient - History of Present Illness Timing - onset: Last night Timing - details: Abrupt onset, Waxing and waning. No: Still present Associated symptoms: Fever (subjectively felt feverish with chills and left flank pain last night.), Other (states catheter is draining okay) Similar symptoms before: Diagnosis (UTIs with catheter in the past. Previously had been hospitalized for IV abx in the past. Not recent.) Recently seen: Other (had routine catheter change recent with routine (?) culture done that grew 2 organisms. Her Urologist had ordered outpt meds of Fosfomycin to be given every 3 days for several doses. The Pharmacy did not have it and it is available today, but pt with feeling flank pain and feverish today, so here.) Review of Systems Constitutional: reports: Fever (subjective yesterday/last night), Chills Nose: denies: Rhinorrhea / runny nose, Congestion Throat: denies: Sore throat Respiratory: denies: Cough GI: reports: Nausea. 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 catheter HEENT: Chronic vision loss Psych: Depression, Anxiety, Bipolar disorder, Post traumatic stress disorder Musculoskeletal: Osteoarthritis, Other Derm: Psoriasis - Past Surgical History Past Surgical History: Yes General: Hiatal hernia repair, EGD Ortho: Other /VEHICLE DAMAGE APPRAISER: section, Hysterectomy - Present Medications Home Medications: Ambulatory Orders Medication Instructions Recorded Confirmed Dexlansoprazole [Dexilant] 60 mg PO DAILY 04/27/13 01/20/20 Propranolol [Inderal] 20 mg PO TID 04/27/13 01/20/20 Enalapril [Vasotec] 5 mg ORAL DAILY 05/14/14 01/20/20 Nystatin Cream [Mycostatin Cream] 1 applic TOP BID PRN #60 g 12/30/15 01/20/20 Citalopram Hydrobromide [Celexa] 10 mg PO DAILY 08/22/16 01/20/20 Oxybutynin Chloride [Ditropan Xl] 10 mg PO DAILY 01/23/17 01/20/20 Quetiapine Fumarate [Seroquel Xr] 300 mg PO DAILY PM 01/23/17 01/20/20 oxyCODONE/ACET 5/325 [Percocet 5 1 - 2 tab PO PRN PRN MDD 4 03/16/17 01/20/20 mg/325 mg] Zolpidem Tartrate [Ambien] 10 mg PO QPM PRN 06/05/17 01/20/20 Topiramate 25 mg PO BID 07/31/17 01/20/20 Aripiprazole [Abilify] 20 mg PO DAILY 08/28/17 01/20/20 Hydrocortisone 1% Oint 1 gm TP TID PRN 08/28/17 01/20/20 [Hydrocortisone] buPROPion [Wellbutrin Sr] 150 mg PO BID 08/28/17 01/20/20 Miconazole Nitrate 1 gm TP TID #5 cream..g. 03/26/18 01/20/20 hydrOXYzine pamoate [Hydroxyzine 25 mg PO ONCE PRN 07/09/18 01/20/20 Pamoate] Ferrous Sulfate 325 mg PO BID #60 tablet 07/30/18 01/20/20 Loperamide [Imodium] 2 mg PO TID PRN 04/29/19 01/20/20 Tolnaftate [Tinactin] 108 gm TP BID #1 powder 05/29/19 01/20/20 Fluconazole [Diflucan] 150 mg PO DAILY #14 tablet 08/25/19 01/20/20 Cod Liver Oil/Zinc Oxide [Desitin] 1 applic TOP TID 14 Days #1 tube 09/03/19 01/20/20 Fluconazole [Diflucan] 100 mg PO DAILY #3 tablet 01/10/20 01/20/20 Nitrofurantoin [Macrobid] 100 mg PO BID #10 capsule 01/10/20 01/20/20 Cephalexin [Keflex] 500 mg PO QID 10 Days #40 capsule 02/05/20 Nitrofurantoin Monohyd/M-Cryst 100 mg PO BID #14 capsule 03/28/20 [Macrobid 100 mg Capsule] Nystatin Cream [Mycostatin Cream] 1 film TOP BID PRN #60 g 03/28/20 Amox/Clav 875/125 [Augmentin] 1 each PO Q12H #14 tablet 04/28/20 [place] 1 tab PO DAILY 06/22/20 Ondansetron Odt [Zofran] 4 mg TL Q6H PRN #10 tablet 07/04/20 - Allergies Allergies/Adverse Reactions: Allergies Allergy/AdvReac Type Severity Reaction Status Date / Time paroxetine HCl * [From Paxil] AdvReac Intermediate Emesis Verified 07/04/20 08:45 codeine [Codeine] AdvReac Pass Out Verified 07/04/20 08:45 - Social History Does the pt smoke?: No Smoking Status: Never smoker Does the pt drink ETOH?: No Does the pt have substance abuse?: No - Immunizations Immunizations are current?: Yes - POLST Patient has POLST: No PD ED PE NORMAL - Vitals Vital signs reviewed: Yes - General General: Alert and oriented X 3, No acute distress, Well developed/nourished, Other (wheelchair bound and habitus c/w crebral palsy and developmental problems. ) - Cardiac Cardiac: RRR, No murmur - Respiratory Respiratory: Clear bilaterally - Abdomen Abdomen: Soft, Non tender - Female Female : Deferred - Rectal Rectal: Deferred - Back Back: No CVA TTP - Derm Derm: Normal color, Warm and dry Results - Vitals Vitals: Vital Signs - 24 hr 07/04/20 07/04/20 08:42 11:53 Temperature 36.4 C L 36.5 C Heart Rate 82 61 Respiratory 20 18 Rate Blood Pressure 121/67 127/74 O2 Saturation 97 98 Oxygen O2 Source Room air - Labs Labs: Laboratory Tests 07/04/20 07/04/20 07/04/20 09:30 09:30 09:30 WBC 6.0 RBC 4.30 Hgb 10.2 L Hct 33.3 L MCV 77.4 L MCH 23.7 L MCHC 30.6 L RDW 16.2 H Plt Count 323 MPV 9.7 Neut # (Auto) 4.1 Lymph # (Auto) 1.1 L [place] # (Auto) 0.6 Eos # (Auto) 0.2 Baso # (Auto) 0.0 Absolute Nucleated RBC 0.00 Nucleated RBC % 0.0 Sodium 135 Potassium 3.9 Chloride 97 L Carbon Dioxide 23 Anion Gap 15.0 H BUN 12 Creatinine 0.7 Estimated GFR (MDRD) 88 L Glucose 118 H Lactic Acid 2.0 Calcium 9.1 PD MEDICAL DECISION MAKING - ED course Complexity details: reviewed results, considered differential (she was of the belief of needing to be in hospital for IV meds for 7 days, as that had happened before with similar type infection. However, she does not seem septic, and her Urologist Rx Fosfomycin dosing for home, which should cover this. Can give IV dose of med here to cover both infections. ), d/w patient Departure - Departure Disposition: , Self Care Clinical Impression: Urinary tract infection Qualifiers: Urinary tract infection type: catheter-associated UTI Indwelling urinary catheter type: indwelling urethral catheter Encounter type: initial encounter Qualified Code(s): T83.511A - Infection and inflammatory reaction due to indwelling urethral catheter, initial encounter Condition: Stable Record reviewed to determine appropriate education?: Yes Instructions: ED UTI Cystitis Female Follow-Up: Bennie Hill MD [Primary Care Provider] - Keeley Nash MD [Provider Admit Priv/Credential] - Prescriptions: Ondansetron Odt [Zofran] 4 mg TL Q6H PRN #10 tablet PRN Reason: Nausea / Vomiting Comments: Your blood count and lactic acid are normal so no signs of severe infection or sepsis. We did give a dose of IV antibiotics here. The antibiotic prescribed by your urologist should cover the infection you have. So start that when it is available from the pharmacy today/tomorrow. Tylenol as needed for pains or fevers. Ondansetron if needed for nausea. Recheck if not improving well over the next couple of days and return if worsening. Discharge Date/Time: 07/04/20 12:20
[2020-07-04 09:40] LABS: BASOPHILS % (AUTO) 0.7 %; EOSINOPHILS # (AUTO) 0.2 10^3/uL (0.0-0.7); EOSINOPHILS % (AUTO) 3.3 %; HGB - HEMOGLOBIN 10.2 g/dL (12.0-16.0); LYMPHOCYTES # (AUTO) 1.1 10^3/uL (1.5-3.5); LYMPHOCYTES % (AUTO) 18.9 %; MEAN CORPUSCULAR HEMOGLOBIN 23.7 pg (27.0-31.0); MEAN CORPUSCULAR HGB CONC 30.6 g/dL (32.0-36.0); MEAN CORPUSCULAR VOLUME 77.4 fL (81.0-99.0); MEAN PLATELET VOLUME 9.7 fL (7.9-10.8); MONOCYTES # (AUTO) 0.6 10^3/uL (0.0-1.0); MONOCYTES % (AUTO) 9.6 %; NEUTROPHILS # (AUTO) 4.1 10^3/uL (1.5-6.6); NEUTROPHILS % (AUTO) 67.2 %; PLT - PLATELET COUNT 323 10^3/uL (130-450); RED CELL DISTRIBUTION WIDTH 16.2 % (12.0-15.0)
[2020-07-04 09:48] LABS: CALCIUM 9.1 mg/dL (8.5-10.3); CREATININE 0.7 mg/dL (0.4-1.0)
[2020-07-04] MEDS ORDERED: PIPERACILLIN/TAZOBACTAM 3.375 GM in SODIUM CHLORIDE 0.9% MINIBAG 100 ML IV STA (09:48)
[2020-07-04] MEDS ORDERED: KETOROLAC 30 MG/ML VIAL IVP STA (11:39)
[2020-07-04 11:56] VITALS: BP 127/74
== END 2020-07-04 12:20 | disposition home or self-care (01) ==
LOC: ED 08:30
DX: T83.511A Infection and inflammatory reaction due to indwelling urethral catheter, initial encounter (principal); Y84.6 Urinary catheterization as the cause of abnormal reaction of the patient, or of later complication, without mention of misadventure at the time of the procedure; G80.9 Cerebral palsy, unspecified; I10 Essential (primary) hypertension
CPT/HCPCS: 36415; 80048; 83605; 85025; 96365; 96375; 99284

== ENCOUNTER 2020-07-15 03:54 | Outpatient (CLI) | payer MEDICARE, MEDICAID | END 2020-07-15 03:55 | disposition critical access hospital (66) | LOC: EMS 03:54 | PROVIDERS: ATTEND Surgery | DX: T83.091A Other mechanical complication of indwelling urethral catheter, initial encounter (principal) | CPT/HCPCS: A0425; A0429 ==

== ENCOUNTER 2020-07-15 04:13 | Emergency (ER) | payer MEDICARE, MEDICAID ==
[2020-07-15] MEDS ORDERED: LIDOCAINE JELLY 2% 6 ML JEL.PF.APP TOP STA (05:12)
--- NOTE | 2020-07-15 05:32 | ED Physician Documentation ---
PD HPI FEMALE - Stated complaint Stated Complaint: CATH PROBLEMS - Chief complaint Chief Complaint: Abd Pain - History obtained from History obtained from: Patient - History of Present Illness Timing - onset: Today Timing - duration: Minutes Timing - details: Abrupt onset, Still present Associated symptoms: Other (butcher pulled while sneezing and now there is urine leaking around the cath) Similar symptoms before: Diagnosis (cath problem) Recently seen: Other ([facility] [place] - Additional information Additional information: 50-year-old female with history of severe cerebral palsy is bedbound and she has a suprapubic Butcher catheter in place and tonight she had a sneezing episode which move the catheter somewhat where she is now having continuous leaking of urine around the catheter. She is having urine leaking onto her skin of her abdomen. She is also requesting that we check her medial thigh for redness and itching. Review of Systems Constitutional: denies: Fever Eyes: denies: Decreased vision Ears: denies: Ear pain Nose: denies: Congestion Throat: denies: Sore throat Respiratory: denies: Cough GI: denies: Vomiting : reports: Butcher Problem Skin: reports: Rash, Lesions PD PAST MEDICAL HISTORY - Past Medical History Cardiovascular: Hypertension Respiratory: Asthma, Other Neuro: Cerebral palsy Endocrine/Autoimmune: Other GI: GERD HOMICIDE DETECTIVE: None : Indwelling catheter HEENT: Chronic vision loss Psych: Depression, Anxiety, Bipolar disorder, Post traumatic stress disorder Musculoskeletal: Osteoarthritis, Other Derm: Psoriasis - Past Surgical History Past Surgical History: Yes General: Hiatal hernia repair, EGD Ortho: Other /HOMICIDE DETECTIVE: section, Hysterectomy - Present Medications Home Medications: Ambulatory Orders Medication Instructions Recorded Confirmed Dexlansoprazole [Dexilant] 60 mg PO DAILY 04/27/13 01/20/20 Propranolol [Inderal] 20 mg PO TID 04/27/13 01/20/20 Enalapril [Vasotec] 5 mg ORAL DAILY 05/14/14 01/20/20 Nystatin Cream [Mycostatin Cream] 1 applic TOP BID PRN #60 g 12/30/15 01/20/20 Citalopram Hydrobromide [Celexa] 10 mg PO DAILY 08/22/16 01/20/20 Oxybutynin Chloride [Ditropan Xl] 10 mg PO DAILY 01/23/17 01/20/20 Quetiapine Fumarate [Seroquel Xr] 300 mg PO DAILY PM 01/23/17 01/20/20 oxyCODONE/ACET 5/325 [Percocet 5 1 - 2 tab PO PRN PRN MDD 4 03/16/17 01/20/20 mg/325 mg] Zolpidem Tartrate [Ambien] 10 mg PO QPM PRN 06/05/17 01/20/20 Topiramate 25 mg PO BID 07/31/17 01/20/20 Aripiprazole [Abilify] 20 mg PO DAILY 08/28/17 01/20/20 Hydrocortisone 1% Oint 1 gm TP TID PRN 08/28/17 01/20/20 [Hydrocortisone] buPROPion [Wellbutrin Sr] 150 mg PO BID 08/28/17 01/20/20 Miconazole Nitrate 1 gm TP TID #5 cream..g. 03/26/18 01/20/20 hydrOXYzine pamoate [Hydroxyzine 25 mg PO ONCE PRN 07/09/18 01/20/20 Pamoate] Ferrous Sulfate 325 mg PO BID #60 tablet 07/30/18 01/20/20 Loperamide [Imodium] 2 mg PO TID PRN 04/29/19 01/20/20 Tolnaftate [Tinactin] 108 gm TP BID #1 powder 05/29/19 01/20/20 Fluconazole [Diflucan] 150 mg PO DAILY #14 tablet 08/25/19 01/20/20 Cod Liver Oil/Zinc Oxide [Desitin] 1 applic TOP TID 14 Days #1 tube 09/03/19 01/20/20 Fluconazole [Diflucan] 100 mg PO DAILY #3 tablet 01/10/20 01/20/20 Nitrofurantoin [Macrobid] 100 mg PO BID #10 capsule 01/10/20 01/20/20 Cephalexin [Keflex] 500 mg PO QID 10 Days #40 capsule 02/05/20 Nitrofurantoin Monohyd/M-Cryst 100 mg PO BID #14 capsule 03/28/20 [Macrobid 100 mg Capsule] Nystatin Cream [Mycostatin Cream] 1 film TOP BID PRN #60 g 03/28/20 Amox/Clav 875/125 [Augmentin] 1 each PO Q12H #14 tablet 04/28/20 Cranberry 1 tab PO DAILY 06/22/20 Ondansetron Odt [Zofran] 4 mg TL Q6H PRN #10 tablet 07/04/20 Ketoconazole/Hydrocortisone 1 gm TP DAILY #30 cream..g. 07/15/20 [Hydrocort 2.5%-Ketoconazole 2%] Zinc Oxide [Diaper Rash] 1 gm TP BID #113 cream..g. 07/15/20 - Allergies Allergies/Adverse Reactions: Allergies Allergy/AdvReac Type Severity Reaction Status Date / Time paroxetine HCl * [From Paxil] AdvReac Intermediate Emesis Verified 07/15/20 04:26 codeine [Codeine] AdvReac Pass Out Verified 07/15/20 04:26 - Social History Does the pt smoke?: No Smoking Status: Never smoker Does the pt drink ETOH?: No Does the pt have substance abuse?: No - Immunizations Immunizations are current?: Yes - POLST Patient has POLST: No PD ED PE NORMAL - Vitals Vital signs reviewed: Yes (wide pulse pressure ) - General General: No acute distress, Well developed/nourished - HEENT HEENT: Atraumatic - Respiratory Respiratory: No respiratory distress - Abdomen Abdomen: Normal bowel sounds, Soft, Non tender, Non distended, No organomegaly, Other (suprapubic cath with urine draining around the cath. No erythema or signs of trauma to the stoma. ) - Derm Derm: Normal color, Warm and dry, No rash - Extremities Extremities: No deformity, No edema - Neuro Neuro: Normal speech Eye Opening: Spontaneous Motor: Obeys Commands Verbal: Oriented GCS Score: 15 - Psych Psych: Normal mood, Normal affect Results - Vitals Vitals: Vital Signs - 24 hr 07/15/20 07/15/20 04:23 06:25 Temperature 36.7 C 36.8 C Heart Rate 67 65 Respiratory 14 14 Rate Blood Pressure 115/51 L 125/77 O2 Saturation 100 98 Oxygen O2 Source Room air - Labs Labs: Microbiology 07/15/20 05:50 [place] Preparation - Final Skin - Wound PD MEDICAL DECISION MAKING - ED course Complexity details: reviewed old records, reviewed results, re-evaluated patient, considered differential, d/w patient ED course: 50 y/o female with a history of cerebral palsy has a chronically indwelling suprapubic butcher catheter that is leaking around the insertion and this is removed and replaced and her thighs are examined and there appears to be boggy erythematous skin consistent with moister exposure. Barrier cream has not been effective at resolving this and it itches and a [place] prep is made and sent to the lab and is negative. Despite this a recommendation has been made to use both zinc oxide as a barrier for areas with urine or feces and the ketoconizole/hydrocortisone daily for the area of itching and redness. Departure - Departure Disposition: 01 Home, Self Care Clinical Impression: Skin maceration, Pruritic intertrigo Suprapubic catheter dysfunction Qualifiers: Encounter type: initial encounter Qualified Code(s): T83.010A - Breakdown (mechanical) of cystostomy catheter, initial encounter Condition: Stable Instructions: ED Catheter Care Butcher, ED Diaper Rash Infec Fungal Follow-Up: Bennie Hill MD [Provider Admit Priv/Credential] - Keeley Nash MD [Physician No Access] - Prescriptions: Zinc Oxide [Diaper Rash] 1 gm TP BID #113 cream..g. Ketoconazole/Hydrocortisone [Hydrocort 2.5%-Ketoconazole 2%] 1 gm TP DAILY #30 cream..g. Comments: There is macerated skin on the inner thigh and buttocks. This macerated skin is secondary to moisture and friction of the opposing leg. The mainstays to treatment are keeping the area clean and dry washing daily and drying with a general studies program chair on low, and avoiding excessive moisture or friction. Cotton clothes are important to wick away moisture. A moisture barrier the zinc oxide should be applied twice per day to areas that may be covered in urine or feces. For the area where itching is present the ketoconazole hydrocortisone should be applied once per day for up to 2 weeks. A urine culture is pending and results should be examined by Dr. Carlson before any treatment is done.
[2020-07-15] MEDS ORDERED: ZINC OXIDE 20% OINT 30 GM TUBE TOP STA (06:02)
[2020-07-15] MEDS ORDERED: ZINC OXIDE 20% OINT 30 GM TUBE TOP ONE (06:10)
[2020-07-15 06:31] VITALS: BP 125/77
[2020-07-15 06:49] LABS: BILIRUBIN,URINE NEGATIVE (NEGATIVE); GLUCOSE, URINE (UA) NEGATIVE (NEGATIVE); KETONES,URINE (UA) NEGATIVE (NEGATIVE); LEUKOCYTE ESTERASE, URINE SMALL (NEGATIVE); NITRITE,URINE NEGATIVE (NEGATIVE); OCCULT BLOOD,URINE MODERATE (NEGATIVE); PROTEIN,URINE 100 mg/dL (NEGATIVE); UROBILINOGEN,URINE 0.2 (NORMAL) E.U./dL (NORMAL)
[2020-07-15 06:51] LABS: CLARITY,URINE CLEAR (CLEAR)
[2020-07-15 06:58] LABS: BACTERIA,URINE Rare /HPF (None Seen); SQUAMOUS EPITHELIAL CELL,UR NONE SEEN (<= Few)
== END 2020-07-15 09:16 | disposition home or self-care (01) ==
LOC: ED 04:13
DX: T83.030A Leakage of cystostomy catheter, initial encounter (principal); Y84.6 Urinary catheterization as the cause of abnormal reaction of the patient, or of later complication, without mention of misadventure at the time of the procedure; L30.4 Erythema intertrigo; L29.8 Other pruritus; G80.9 Cerebral palsy, unspecified; I10 Essential (primary) hypertension; Z74.01 Bed confinement status
CPT/HCPCS: 51705; 81001; 87086; 87181; 87220; 99283; 99284; A9270; 51702; 81003

== ENCOUNTER 2020-07-15 08:51 | Outpatient (CLI) | payer MEDICARE, MEDICAID | END 2020-07-15 08:52 | disposition home or self-care (01) | LOC: EMS 08:51 | PROVIDERS: ATTEND Surgery | DX: G80.9 Cerebral palsy, unspecified (principal) | CPT/HCPCS: A0425; A0428 ==

== ENCOUNTER 2020-08-01 09:20 | Emergency (ER) | payer MEDICARE, MEDICAID ==
[2020-08-01 09:52] VITALS: BP 125/87
[2020-08-01 10:05] LABS: BASOPHILS % (AUTO) 0.7 %; EOSINOPHILS # (AUTO) 0.2 10^3/uL (0.0-0.7); EOSINOPHILS % (AUTO) 3.5 %; LYMPHOCYTES # (AUTO) 1.4 10^3/uL (1.5-3.5); LYMPHOCYTES % (AUTO) 23.9 %; MEAN CORPUSCULAR HEMOGLOBIN 23.4 pg (27.0-31.0); MEAN CORPUSCULAR HGB CONC 30.4 g/dL (32.0-36.0); MEAN PLATELET VOLUME 9.6 fL (7.9-10.8); MONOCYTES # (AUTO) 0.7 10^3/uL (0.0-1.0); MONOCYTES % (AUTO) 11.8 %; NEUTROPHILS # (AUTO) 3.6 10^3/uL (1.5-6.6); NEUTROPHILS % (AUTO) 59.9 %; PLT - PLATELET COUNT 314 10^3/uL (130-450); RED BLOOD COUNT 4.27 10^6/uL (4.20-5.40)
--- NOTE | 2020-08-01 10:30 | ED Physician Documentation ---
History of Present Illness - Stated complaint Stated Complaint: BACK PX/HOT COLD FLASHES - Chief complaint Chief Complaint: UTI - History obtained from History obtained from: Patient - History of Present Illness Timing: Today Pain level max: 0 Pain level now: 0 - Additonal information Additional information: 50-year-old female with a chronic indwelling Epps catheter presents to the emergency department today concerned about infection. She saw her urologist yesterday, the Epps catheter was irrigated. She states that her back is been hurting for several days. No fevers. No vomiting. Nothing makes it better or worse. No confusion. Review of Systems Constitutional: denies: Fever, Chills GI: denies: Vomiting Skin: denies: Rash Musculoskeletal: reports: Back pain (Chronic, unchanged). denies: Neck pain Neurologic: denies: Headache PD PAST MEDICAL HISTORY - Past Medical History Cardiovascular: Hypertension Respiratory: Asthma, Other Neuro: Cerebral palsy Endocrine/Autoimmune: Other GI: GERD MANAGER SURGERY: None : Indwelling catheter HEENT: Chronic vision loss Psych: Depression, Anxiety, Bipolar disorder, Post traumatic stress disorder Musculoskeletal: Osteoarthritis, Other Derm: Psoriasis - Past Surgical History Past Surgical History: Yes General: Hiatal hernia repair, EGD Ortho: Other /MANAGER SURGERY: section, Hysterectomy - Present Medications Home Medications: Ambulatory Orders Medication Instructions Recorded Confirmed Dexlansoprazole [Dexilant] 60 mg PO DAILY 04/27/13 01/20/20 Propranolol [Inderal] 20 mg PO TID 04/27/13 01/20/20 Enalapril [Vasotec] 5 mg ORAL DAILY 05/14/14 01/20/20 Nystatin Cream [Mycostatin Cream] 1 applic TOP BID PRN #60 g 12/30/15 01/20/20 Citalopram Hydrobromide [Celexa] 10 mg PO DAILY 08/22/16 01/20/20 Oxybutynin Chloride [Ditropan Xl] 10 mg PO DAILY 01/23/17 01/20/20 Quetiapine Fumarate [Seroquel Xr] 300 mg PO DAILY PM 01/23/17 01/20/20 oxyCODONE/ACET 5/325 [Percocet 5 1 - 2 tab PO PRN PRN MDD 4 03/16/17 01/20/20 mg/325 mg] Zolpidem Tartrate [Ambien] 10 mg PO QPM PRN 06/05/17 01/20/20 Topiramate 25 mg PO BID 07/31/17 01/20/20 Aripiprazole [Abilify] 20 mg PO DAILY 08/28/17 01/20/20 Hydrocortisone 1% Oint 1 gm TP TID PRN 08/28/17 01/20/20 [Hydrocortisone] buPROPion [Wellbutrin Sr] 150 mg PO BID 08/28/17 01/20/20 Miconazole Nitrate 1 gm TP TID #5 cream..g. 03/26/18 01/20/20 hydrOXYzine pamoate [Hydroxyzine 25 mg PO ONCE PRN 07/09/18 01/20/20 Pamoate] Ferrous Sulfate 325 mg PO BID #60 tablet 07/30/18 01/20/20 Loperamide [Imodium] 2 mg PO TID PRN 04/29/19 01/20/20 Tolnaftate [Tinactin] 108 gm TP BID #1 powder 05/29/19 01/20/20 Fluconazole [Diflucan] 150 mg PO DAILY #14 tablet 08/25/19 01/20/20 Cod Liver Oil/Zinc Oxide [Desitin] 1 applic TOP TID 14 Days #1 tube 09/03/19 01/20/20 Fluconazole [Diflucan] 100 mg PO DAILY #3 tablet 01/10/20 01/20/20 Nitrofurantoin [Macrobid] 100 mg PO BID #10 capsule 01/10/20 01/20/20 Cephalexin [Keflex] 500 mg PO QID 10 Days #40 capsule 02/05/20 Nitrofurantoin Monohyd/M-Cryst 100 mg PO BID #14 capsule 03/28/20 [Macrobid 100 mg Capsule] Nystatin Cream [Mycostatin Cream] 1 film TOP BID PRN #60 g 03/28/20 Amox/Clav 875/125 [Augmentin] 1 each PO Q12H #14 tablet 04/28/20 Cranberry 1 tab PO DAILY 06/22/20 Ondansetron Odt [Zofran] 4 mg TL Q6H PRN #10 tablet 07/04/20 Ketoconazole/Hydrocortisone 1 gm TP DAILY #30 cream..g. 07/15/20 [Hydrocort 2.5%-Ketoconazole 2%] Zinc Oxide [Diaper Rash] 1 gm TP BID #113 cream..g. 07/15/20 - Allergies Allergies/Adverse Reactions: Allergies Allergy/AdvReac Type Severity Reaction Status Date / Time phenazopyridine Allergy Unknown Verified 08/01/20 09:51 [From Pyridium] paroxetine HCl * [From Paxil] AdvReac Intermediate Emesis Verified 08/01/20 09:51 codeine [Codeine] AdvReac Pass Out Verified 08/01/20 09:51 - Social History Does the pt smoke?: No Smoking Status: Never smoker Does the pt drink ETOH?: No Does the pt have substance abuse?: No - Immunizations Immunizations are current?: Yes - POLST Patient has POLST: No PD ED PE NORMAL - Vitals Vital signs reviewed: Yes - General General: Alert and oriented X 3, No acute distress - HEENT HEENT: Moist mucous membranes - Neck Neck: Supple, no meningeal sign - Cardiac Cardiac: RRR - Respiratory Respiratory: No respiratory distress, Clear bilaterally - Abdomen Abdomen: Soft, Non tender, Non distended - Derm Derm: Warm and dry - Neuro Neuro: Alert and oriented X 3 - Psych Psych: Normal mood, Normal affect Results - Vitals Vitals: Vital Signs - 24 hr 08/01/20 09:25 Temperature 36.5 C Heart Rate 82 Respiratory 17 Rate Blood Pressure 125/87 H O2 Saturation 100 Oxygen O2 Source Room air - Labs Labs: Laboratory Tests 08/01/20 09:58 WBC 6.0 RBC 4.27 Hgb 10.0 L Hct 32.9 L MCV 77.0 L MCH 23.4 L MCHC 30.4 L RDW 17.0 H Plt Count 314 MPV 9.6 Neut # (Auto) 3.6 Lymph # (Auto) 1.4 L [place] # (Auto) 0.7 Eos # (Auto) 0.2 Baso # (Auto) 0.0 Absolute Nucleated RBC 0.00 Nucleated RBC % 0.0 PD MEDICAL DECISION MAKING - ED course Complexity details: reviewed results, re-evaluated patient, considered differential, d/w patient ED course: I spoke with Dr. Nash, urology, the patient has a normal white blood cell count. No fevers. No evidence of active infection. 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 This is not causing her symptoms however. She does not need antibiotics at this time. Patient counseled regarding signs and symptoms for which I believe and urgent re-evaluation would be necessary. Patient with good understanding of and agreement to plan and is comfortable going home at this time This document was made in part using voice recognition software. While efforts are made to proofread this document, sound alike and grammatical errors may occur. Departure - Departure Disposition: 01 Home, Self Care Clinical Impression: Colonization status, Chronic indwelling Epps catheter Condition: Good Instructions: ED Catheter Care Epps Follow-Up: Bennie Hill MD [Primary Care Provider] - Comments: I spoke with your urologist today. She says to not place you on antibiotics. Your urine is colonized, but not causing an infection. Follow-up with your doctor for further care.
== END 2020-08-01 10:39 | disposition home or self-care (01) ==
LOC: ED 09:20
DX: Z22.39 Carrier of other specified bacterial diseases (principal); M54.9 Dorsalgia, unspecified; G89.29 Other chronic pain; G80.9 Cerebral palsy, unspecified; I10 Essential (primary) hypertension
CPT/HCPCS: 36415; 85025; 99283; 99284

== ENCOUNTER 2020-08-18 14:12 | Outpatient (CLI) | payer MEDICARE, MEDICAID | END 2020-08-18 14:13 | disposition critical access hospital (66) | LOC: EMS 14:12 | PROVIDERS: ATTEND Surgery | DX: T83.038A Leakage of other urinary catheter, initial encounter (principal) | CPT/HCPCS: A0425; A0429 ==

== ENCOUNTER 2020-08-18 14:29 | Emergency (ER) | payer MEDICARE, MEDICAID ==
--- NOTE | 2020-08-18 14:51 | ED Physician Documentation ---
History of Present Illness - Stated complaint Stated Complaint: FEM - Chief complaint Chief Complaint: General - History obtained from History obtained from: Patient, EMS - Additonal information Additional information: 50-year-old woman with cerebral palsy and chronic indwelling Epps catheter due to neurogenic bladder presents with a complaint of her bladder not being drained by the Epps for the past 2 hours. 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 Current catheter is only 2 days old. She denies fevers or chills. 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 : Indwelling catheter HEENT: Chronic vision loss Psych: Depression, Anxiety, Bipolar disorder, Post traumatic stress disorder Musculoskeletal: Osteoarthritis, Other Derm: Psoriasis - Past Surgical History Past Surgical History: Yes General: Hiatal hernia repair, EGD Ortho: Other /COMMUTATOR V RING ASSEMBLER: section, Hysterectomy - Present Medications Home Medications: Ambulatory Orders Medication Instructions Recorded Confirmed Dexlansoprazole [Dexilant] 60 mg PO DAILY 04/27/13 01/20/20 Propranolol [Inderal] 20 mg PO TID 04/27/13 01/20/20 Enalapril [Vasotec] 5 mg ORAL DAILY 05/14/14 01/20/20 Nystatin Cream [Mycostatin Cream] 1 applic TOP BID PRN #60 g 12/30/15 01/20/20 Citalopram Hydrobromide [Celexa] 10 mg PO DAILY 08/22/16 01/20/20 Oxybutynin Chloride [Ditropan Xl] 10 mg PO DAILY 01/23/17 01/20/20 Quetiapine Fumarate [Seroquel Xr] 300 mg PO DAILY PM 01/23/17 01/20/20 oxyCODONE/ACET 5/325 [Percocet 5 1 - 2 tab PO PRN PRN MDD 4 03/16/17 01/20/20 mg/325 mg] Zolpidem Tartrate [Ambien] 10 mg PO QPM PRN 06/05/17 01/20/20 Topiramate 25 mg PO BID 07/31/17 01/20/20 Aripiprazole [Abilify] 20 mg PO DAILY 08/28/17 01/20/20 Hydrocortisone 1% Oint 1 gm TP TID PRN 08/28/17 01/20/20 [Hydrocortisone] buPROPion [Wellbutrin Sr] 150 mg PO BID 08/28/17 01/20/20 Miconazole Nitrate 1 gm TP TID #5 cream..g. 03/26/18 01/20/20 hydrOXYzine pamoate [Hydroxyzine 25 mg PO ONCE PRN 07/09/18 01/20/20 Pamoate] Ferrous Sulfate 325 mg PO BID #60 tablet 07/30/18 01/20/20 Loperamide [Imodium] 2 mg PO TID PRN 04/29/19 01/20/20 Tolnaftate [Tinactin] 108 gm TP BID #1 powder 05/29/19 01/20/20 Fluconazole [Diflucan] 150 mg PO DAILY #14 tablet 08/25/19 01/20/20 Cod Liver Oil/Zinc Oxide [Desitin] 1 applic TOP TID 14 Days #1 tube 09/03/19 01/20/20 Fluconazole [Diflucan] 100 mg PO DAILY #3 tablet 01/10/20 01/20/20 Nitrofurantoin [Macrobid] 100 mg PO BID #10 capsule 01/10/20 01/20/20 Cephalexin [Keflex] 500 mg PO QID 10 Days #40 capsule 02/05/20 Nitrofurantoin Monohyd/M-Cryst 100 mg PO BID #14 capsule 03/28/20 [Macrobid 100 mg Capsule] Nystatin Cream [Mycostatin Cream] 1 film TOP BID PRN #60 g 03/28/20 Amox/Clav 875/125 [Augmentin] 1 each PO Q12H #14 tablet 04/28/20 Cranberry 1 tab PO DAILY 06/22/20 Ondansetron Odt [Zofran] 4 mg TL Q6H PRN #10 tablet 07/04/20 Ketoconazole/Hydrocortisone 1 gm TP DAILY #30 cream..g. 07/15/20 [Hydrocort 2.5%-Ketoconazole 2%] Zinc Oxide [Diaper Rash] 1 gm TP BID #113 cream..g. 07/15/20 Ciprofloxacin HCl [Cipro] 500 mg PO BID #28 tablet 08/18/20 Hyoscyamine Sulfate 0.125 mg PO QID PRN #20 tablet 08/18/20 - Allergies Allergies/Adverse Reactions: Allergies Allergy/AdvReac Type Severity Reaction Status Date / Time phenazopyridine Allergy Unknown Verified 08/18/20 14:48 [From Pyridium] paroxetine HCl * [From Paxil] AdvReac Intermediate Emesis Verified 08/18/20 14:48 codeine [Codeine] AdvReac Pass Out Verified 08/18/20 14:48 - Social History Does the pt smoke?: No Smoking Status: Never smoker Does the pt drink ETOH?: No Does the pt have substance abuse?: No - Immunizations Immunizations are current?: Yes - POLST Patient has POLST: No PD ED PE NORMAL - Vitals Vital signs reviewed: Yes - General General: Alert and oriented X 3, No acute distress - Abdomen Abdomen: Non tender - Neuro Neuro: Alert and oriented X 3, Normal speech Results - Vitals Vitals: Vital Signs - 24 hr 08/18/20 14:38 Temperature 37.5 C Heart Rate 71 Respiratory 16 Rate Blood Pressure 128/76 O2 Saturation 100 Oxygen O2 Source Room air - Labs Labs: Laboratory Tests 08/18/20 08/18/20 15:14 15:14 WBC 10.0 RBC 4.58 Hgb 10.4 L Hct 35.9 L MCV 78.4 L MCH 22.7 L MCHC 29.0 L RDW 16.6 H Plt Count 323 MPV 10.0 Neut # (Auto) 8.0 H Lymph # (Auto) 1.1 L [place] # (Auto) 0.7 Eos # (Auto) 0.2 Baso # (Auto) 0.0 Absolute Nucleated RBC 0.00 Nucleated RBC % 0.0 Sodium 136 Potassium 4.2 Chloride 102 Carbon Dioxide 24 Anion Gap 10.0 BUN 14 Creatinine 0.7 Estimated GFR (MDRD) 88 L Glucose 100 Calcium 9.1 PD MEDICAL DECISION MAKING - ED course ED course: This 50-year-old woman with chronic indwelling catheter presents with a clogged catheter associated back pain. No fevers. She has a known history of Pseudomonas colonization and previous cultures were reviewed. I thought long and hard about whether to start antibiotics, but given the combination of back pain and the increased white count compared to her normal noting that on past visits her usual white blood cell count has been in the 6 range it seems that she probably does have an actual infection as opposed to just catheter associated bacteriuria and Cipro was begun. A new culture is sent. I do not see any utility in ordering a urinalysis at this time as we note will be positive. Departure - Departure Disposition: Home, Self Care Clinical Impression: Urinary catheter change required Cerebral palsy Qualifiers: Cerebral palsy type: unspecified type Qualified Code(s): G80.9 - Cerebral palsy, unspecified Condition: Stable Record reviewed to determine appropriate education?: Yes Instructions: ED Catheter Care Epps Prescriptions: Ciprofloxacin HCl [Cipro] 500 mg PO BID #28 tablet Hyoscyamine Sulfate 0.125 mg PO QID PRN #20 tablet PRN Reason: Spasms Comments: We will culture your urine, if a antibiotic change is necessary we will call you. Return if worsening. Follow-up with your urologist as scheduled. Please copy chart to the urologist Keeley Nash
[2020-08-18 15:27] LABS: BASOPHILS % (AUTO) 0.3 %; EOSINOPHILS # (AUTO) 0.2 10^3/uL (0.0-0.7); EOSINOPHILS % (AUTO) 1.9 %; HGB - HEMOGLOBIN 10.4 g/dL (12.0-16.0); LYMPHOCYTES # (AUTO) 1.1 10^3/uL (1.5-3.5); LYMPHOCYTES % (AUTO) 10.5 %; MEAN CORPUSCULAR HEMOGLOBIN 22.7 pg (27.0-31.0); MEAN CORPUSCULAR VOLUME 78.4 fL (81.0-99.0); MONOCYTES # (AUTO) 0.7 10^3/uL (0.0-1.0); MONOCYTES % (AUTO) 7.2 %; NEUTROPHILS % (AUTO) 79.9 %; PLT - PLATELET COUNT 323 10^3/uL (130-450); RED BLOOD COUNT 4.58 10^6/uL (4.20-5.40); RED CELL DISTRIBUTION WIDTH 16.6 % (12.0-15.0)
[2020-08-18 15:29] LABS: CALCIUM 9.1 mg/dL (8.5-10.3); CREATININE 0.7 mg/dL (0.4-1.0)
[2020-08-18] MEDS ORDERED: LIDOCAINE 2% URO-JET 5 ML SYRINGE UR STA (15:33)
[2020-08-18] MEDS ORDERED: oxyCODONE 5 MG TABLET PO STA (16:24)
[2020-08-18] MEDS ORDERED: CIPROFLOXACIN 250 MG TABLET PO STA (16:24)
[2020-08-18 17:31] VITALS: BP 124/66
== END 2020-08-18 17:32 | disposition home or self-care (01) ==
LOC: EDUNIT# → ED 14:29
DX: T83.091A Other mechanical complication of indwelling urethral catheter, initial encounter (principal); Y84.6 Urinary catheterization as the cause of abnormal reaction of the patient, or of later complication, without mention of misadventure at the time of the procedure; G80.9 Cerebral palsy, unspecified; N31.9 Neuromuscular dysfunction of bladder, unspecified; I10 Essential (primary) hypertension
CPT/HCPCS: 51702; 80048; 85025; 87086; 87181; 99283; A9270

== ENCOUNTER 2020-08-18 17:32 | Outpatient (CLI) | payer MEDICARE, MEDICAID | END 2020-08-18 17:33 | disposition home or self-care (01) | LOC: EMS 17:32 | PROVIDERS: ATTEND Surgery | DX: G82.50 Quadriplegia, unspecified (principal) | CPT/HCPCS: A0425; A0428 ==

== ENCOUNTER 2020-09-14 21:11 | Outpatient (CLI) | payer MEDICARE, MEDICAID | END 2020-09-14 21:12 | disposition critical access hospital (66) | LOC: EMS 21:11 | PROVIDERS: ATTEND Surgery | DX: T83.038A Leakage of other urinary catheter, initial encounter (principal) | CPT/HCPCS: A0425; A0429 ==

== ENCOUNTER 2020-09-14 21:31 | Emergency (ER) | payer MEDICARE, MEDICAID ==
--- NOTE | 2020-09-14 21:35 | ED Physician Documentation ---
PD HPI FEMALE - Stated complaint Stated Complaint: CATHETER ISSUE - History obtained from History obtained from: Patient - History of Present Illness Timing - onset: Today Timing - details: Abrupt onset Associated symptoms: No: Fever Recently seen: Clinic - Additional information Additional information: patient had her chronic suprapubic catheter changed earlier today. BIBA to ED at this time, feels there is leakage around the catheter insertion site. Review of Systems Constitutional: denies: Fever, Chills, Sweats GI: denies: Abdominal Pain : reports: Butcher Problem. denies: Unable to Void PD PAST MEDICAL HISTORY - Past Medical History Cardiovascular: Hypertension Respiratory: Asthma, Other Neuro: Cerebral palsy Endocrine/Autoimmune: Other GI: GERD ECHOCARDIOGRAPHY TECH: None : Indwelling catheter HEENT: Chronic vision loss Psych: Depression, Anxiety, Bipolar disorder, Post traumatic stress disorder Musculoskeletal: Osteoarthritis, Other Derm: Psoriasis - Past Surgical History Past Surgical History: Yes General: Hiatal hernia repair, EGD Ortho: Other /ECHOCARDIOGRAPHY TECH: section, Hysterectomy - Present Medications Home Medications: Ambulatory Orders Medication Instructions Recorded Confirmed Dexlansoprazole [Dexilant] 60 mg PO DAILY 04/27/13 09/14/20 Propranolol [Inderal] 20 mg PO TID 04/27/13 09/14/20 Enalapril [Vasotec] 5 mg ORAL DAILY 05/14/14 09/14/20 Nystatin Cream [Mycostatin Cream] 1 applic TOP BID PRN #60 g 12/30/15 09/14/20 Citalopram Hydrobromide [Celexa] 10 mg PO DAILY 08/22/16 09/14/20 Oxybutynin Chloride [Ditropan Xl] 10 mg PO DAILY 01/23/17 09/14/20 Quetiapine Fumarate [Seroquel Xr] 300 mg PO DAILY PM 01/23/17 09/14/20 oxyCODONE/ACET 5/325 [Percocet 5 1 - 2 tab PO PRN PRN MDD 4 03/16/17 09/14/20 mg/325 mg] Zolpidem Tartrate [Ambien] 10 mg PO QPM PRN 06/05/17 09/14/20 Topiramate 25 mg PO BID 07/31/17 09/14/20 Aripiprazole [Abilify] 20 mg PO DAILY 08/28/17 09/14/20 Hydrocortisone 1% Oint 1 gm TP TID PRN 08/28/17 09/14/20 [Hydrocortisone] buPROPion [Wellbutrin Sr] 150 mg PO BID 08/28/17 09/14/20 Miconazole Nitrate 1 gm TP TID #5 cream..g. 03/26/18 09/14/20 hydrOXYzine pamoate [Hydroxyzine 25 mg PO ONCE PRN 07/09/18 09/14/20 Pamoate] Ferrous Sulfate 325 mg PO BID #60 tablet 07/30/18 09/14/20 Loperamide [Imodium] 2 mg PO TID PRN 04/29/19 09/14/20 Tolnaftate [Tinactin] 108 gm TP BID #1 powder 05/29/19 09/14/20 Fluconazole [Diflucan] 150 mg PO DAILY #14 tablet 08/25/19 09/14/20 Cod Liver Oil/Zinc Oxide [Desitin] 1 applic TOP TID 14 Days #1 tube 09/03/19 09/14/20 Fluconazole [Diflucan] 100 mg PO DAILY #3 tablet 01/10/20 09/14/20 Nitrofurantoin Monohyd/M-Cryst 100 mg PO BID #14 capsule 03/28/20 09/14/20 [Macrobid 100 mg Capsule] Nystatin Cream [Mycostatin Cream] 1 film TOP BID PRN #60 g 03/28/20 09/14/20 Cranberry 1 tab PO DAILY 06/22/20 09/14/20 Ondansetron Odt [Zofran] 4 mg TL Q6H PRN #10 tablet 07/04/20 09/14/20 Ketoconazole/Hydrocortisone [Pheyo 1 gm TP DAILY #30 cream..g. 07/15/20 09/14/20 2.5%-2% Cream] Zinc Oxide [Diaper Rash] 1 gm TP BID #113 cream..g. 07/15/20 09/14/20 Hyoscyamine Sulfate 0.125 mg PO QID PRN #20 tablet 08/18/20 09/14/20 Fluconazole [Diflucan] 150 mg PO ONCE #2 tablet 09/14/20 - Allergies Allergies/Adverse Reactions: Allergies Allergy/AdvReac Type Severity Reaction Status Date / Time phenazopyridine Allergy Unknown Verified 09/14/20 21:45 [From Pyridium] paroxetine HCl * [From Paxil] AdvReac Intermediate Emesis Verified 09/14/20 21:45 codeine [Codeine] AdvReac Pass Out Verified 09/14/20 21:45 - Social History Does the pt smoke?: No Smoking Status: Never smoker Does the pt drink ETOH?: No Does the pt have substance abuse?: No - Immunizations Immunizations are current?: Yes - POLST Patient has POLST: No PD ED PE NORMAL - Vitals Vital signs reviewed: Yes - General General: Alert and oriented X 3, No acute distress, Other (obese) - Abdomen Abdomen: Soft, Non tender, Non distended, Other (suprapubic catheter insertion site is dry and without erythema or discharge. there is UO into tubing and in the bag, appears clear yellow. There is bilateral proximal thigh erythema with scaling and satellite lesions) Results - Vitals Vitals: Vital Signs - 24 hr 09/14/20 09/14/20 21:31 22:33 Temperature 36.4 C L 36.5 C Heart Rate 69 64 Respiratory 16 16 Rate Blood Pressure 126/90 H 125/80 O2 Saturation 98 98 Oxygen O2 Source Room air PD MEDICAL DECISION MAKING - ED course Complexity details: reviewed old records, considered differential, d/w patient ED course: no evidence at this time of leaking around/from butcher. there is evidence of bilateral thigh candidal infection with mild weeping/oozing from areas of skin breakdown, which is possibly the source of the sensation of fluid leakage. given 150mg fluconazole in ED and rx for repeat dose to be taken in 3 days Departure - Departure Disposition: 01 Home, Self Care Clinical Impression: Milla infection, Candidal intertrigo Condition: Good Instructions: ED Candidiasis Cutaneous Follow-Up: Bennie Hill MD [Primary Care Provider] - Prescriptions: Fluconazole [Diflucan] 150 mg PO ONCE #2 tablet Discharge Date/Time: 09/14/20 23:01
[2020-09-14] MEDS ORDERED: FLUCONAZOLE 100 MG TABLET PO STA (21:52)
[2020-09-14 22:34] VITALS: BP 125/80
== END 2020-09-14 23:01 | disposition home or self-care (01) ==
LOC: EDUNIT# → ED 21:31 → SUPCPDRO 21:31 → ED 23:01
DX: L30.4 Erythema intertrigo (principal); B37.2 Candidiasis of skin and nail; G80.9 Cerebral palsy, unspecified; I10 Essential (primary) hypertension
CPT/HCPCS: 99283; A9270

== ENCOUNTER 2020-09-14 23:01 | Outpatient (CLI) | payer MEDICARE, MEDICAID | END 2020-09-14 23:02 | disposition home or self-care (01) | LOC: EMS 23:01 | PROVIDERS: ATTEND Surgery | DX: G80.9 Cerebral palsy, unspecified (principal); Z74.01 Bed confinement status | CPT/HCPCS: A0425; A0428 ==

== ENCOUNTER 2020-11-27 14:47 | Outpatient (CLI) | payer MEDICARE, MEDICAID | END 2020-11-27 14:48 | disposition critical access hospital (66) | LOC: EMS 14:47 | DX: T83.011A Breakdown (mechanical) of indwelling urethral catheter, initial encounter (principal) | CPT/HCPCS: A0425; A0429 ==

== ENCOUNTER 2020-11-27 15:10 | Emergency (ER) | payer MEDICARE, MEDICAID ==
--- OUTSIDE RECORDS SUMMARY | 2020-11-27 15:23 | EXTERNAL MEDICAL SUMMARY RPT | Continuity of Care Document ---
:1970 Demographics Phone Unavailable Preferred Language Unknown Marital Status Unknown L[employer]-Day Affiliation Unknown Race Unknown Ethnic Group Unknown Author Organization [facility] Address [address] [phone] Phone Social History date description facility [id number]
[2020-11-27 15:24] VITALS: BP 118/101
--- NOTE | 2020-11-27 15:24 | ED Physician Documentation ---
PD HPI FEMALE - Stated complaint Stated Complaint: CLOGGED CATH - History obtained from History obtained from: Patient - History of Present Illness Timing - onset: How many hours ago (few hours ago), Today Timing - duration: Hours Timing - details: Abrupt onset, Still present Associated symptoms: Other (had had suprapubic catheter changed just last week routinely, and noted that it stopped draining today, with urine coming out from around it.). No: Fever, Dysuria OB-COMPLAINT OPERATOR History: Other (suprapubic catheter group home.) Similar symptoms before: Diagnosis (has had catheter clog at times in the past. chronic UTI with sediment and cloudiness, so clogs at times.) Review of Systems Constitutional: denies: Fever, Chills GI: reports: Abdominal Pain. denies: Nausea, Vomiting, Diarrhea : reports: Epps Problem Musculoskeletal: denies: Back pain PD PAST MEDICAL HISTORY - Past Medical History Cardiovascular: Hypertension Respiratory: Asthma, Other Neuro: Cerebral palsy Endocrine/Autoimmune: Other GI: GERD COMPLAINT OPERATOR: None : Indwelling catheter HEENT: Chronic vision loss Psych: Depression, Anxiety, Bipolar disorder, Post traumatic stress disorder Musculoskeletal: Osteoarthritis, Other Derm: Psoriasis - Past Surgical History Past Surgical History: Yes General: Hiatal hernia repair, EGD Ortho: Other /COMPLAINT OPERATOR: section, Hysterectomy - Present Medications Home Medications: Ambulatory Orders Medication Instructions Recorded Confirmed Dexlansoprazole [Dexilant] 60 mg PO DAILY 04/27/13 09/14/20 Propranolol [Inderal] 20 mg PO TID 04/27/13 09/14/20 Enalapril [Vasotec] 5 mg ORAL DAILY 05/14/14 09/14/20 Nystatin Cream [Mycostatin Cream] 1 applic TOP BID PRN #60 g 12/30/15 09/14/20 Citalopram Hydrobromide [Celexa] 10 mg PO DAILY 08/22/16 09/14/20 Oxybutynin Chloride [Ditropan Xl] 10 mg PO DAILY 01/23/17 09/14/20 Quetiapine Fumarate [Seroquel Xr] 300 mg PO DAILY PM 01/23/17 09/14/20 oxyCODONE/ACET 5/325 [Percocet 5 1 - 2 tab PO PRN PRN MDD 4 07/31/17 01/29/21 mg/325 mg] Zolpidem Tartrate [Ambien] 10 mg PO QPM PRN 06/05/17 09/14/20 Topiramate 25 mg PO BID 07/31/17 09/14/20 ARIPiprazole [Abilify] 20 mg PO DAILY 08/28/17 09/14/20 Hydrocortisone 1% Oint 1 gm TP TID PRN 08/28/17 09/14/20 [Hydrocortisone] buPROPion [Wellbutrin Sr] 150 mg PO BID 08/28/17 09/14/20 Miconazole Nitrate 1 gm TP TID #5 cream..g. 03/26/18 09/14/20 hydrOXYzine pamoate [Hydroxyzine 25 mg PO ONCE PRN 07/09/18 09/14/20 Pamoate] Ferrous Sulfate 325 mg PO BID #60 tablet 07/30/18 09/14/20 Loperamide [Imodium] 2 mg PO TID PRN 04/29/19 09/14/20 Tolnaftate [Tinactin] 108 gm TP BID #1 powder 05/29/19 09/14/20 Fluconazole [Diflucan] 150 mg PO DAILY #14 tablet 08/25/19 09/14/20 Cod Liver Oil/Zinc Oxide [Desitin] 1 applic TOP TID 14 Days #1 tube 09/03/19 09/14/20 Fluconazole [Diflucan] 100 mg PO DAILY #3 tablet 01/10/20 09/14/20 Nitrofurantoin Monohyd/M-Cryst 100 mg PO BID #14 capsule 03/28/20 09/14/20 [Macrobid 100 mg Capsule] Nystatin Cream [Mycostatin Cream] 1 film TOP BID PRN #60 g 03/28/20 09/14/20 Cranberry 1 tab PO DAILY 06/22/20 09/14/20 Ondansetron Odt [Zofran] 4 mg TL Q6H PRN #10 tablet 07/04/20 09/14/20 Ketoconazole/Hydrocortisone [Pheyo 1 gm TP DAILY #30 cream..g. 07/15/20 09/14/20 2.5%-2% Cream] Zinc Oxide [Diaper Rash] 1 gm TP BID #113 cream..g. 07/15/20 09/14/20 Hyoscyamine Sulfate 0.125 mg PO QID PRN #20 tablet 08/18/20 09/14/20 Fluconazole [Diflucan] 150 mg PO ONCE #2 tablet 09/14/20 - Allergies Allergies/Adverse Reactions: Allergies Allergy/AdvReac Type Severity Reaction Status Date / Time phenazopyridine Allergy Unknown Verified 09/14/20 21:45 [From Pyridium] paroxetine HCl * [From Paxil] AdvReac Intermediate Emesis Verified 09/14/20 21:45 codeine [Codeine] AdvReac Pass Out Verified 09/14/20 21:45 - Social History Does the pt smoke?: No Smoking Status: Never smoker Does the pt drink ETOH?: No Does the pt have substance abuse?: No - Immunizations Immunizations are current?: Yes - POLST Patient has POLST: No PD ED PE NORMAL - Vitals Vital signs reviewed: Yes - General General: Alert and oriented X 3, No acute distress, Well developed/nourished - Abdomen Abdomen: Soft, Non tender, Other (catheter site appears without infection. There is some urine leaking out around the tubing. ) - Derm Derm: Normal color, Warm and dry - Neuro Neuro: Alert and oriented X 3, Normal speech Results - Vitals Vitals: Vital Signs - 24 hr 11/27/20 15:12 Temperature 37.1 C Heart Rate 83 Respiratory 16 Rate Blood Pressure 118/101 H O2 Saturation 97 Oxygen O2 Source Room air PD MEDICAL DECISION MAKING - ED course Complexity details: considered differential (minimal urine in bladder, so is draining around it, but not through. Nursing tried to irrigate it but did not drain back out. Nursing replaced the catheter. It seemed to be draining, though there was not that much in bladder to drain. Will need to see ongoing drainage at home but should be good now.), d/w patient Departure - Departure Disposition: Home, Self Care Clinical Impression: Suprapubic catheter dysfunction Qualifiers: Encounter type: initial encounter Qualified Code(s): T83.010A - Breakdown (mechanical) of cystostomy catheter, initial encounter Condition: Stable Record reviewed to determine appropriate education?: Yes Comments: Presumably the new catheter will drain better. At this point there was minimal urine in the bladder so I would not expect much drainage at the moment. See how you do over the next day or so. Discharge Date/Time: 11/27/20 18:15
[2020-11-27] MEDS ORDERED: LIDOCAINE 2% URO-JET 5 ML SYRINGE UR STA (16:38)
== END 2020-11-27 18:15 | disposition home or self-care (01) ==
LOC: EDUNIT# → SUPCPDRO 15:10 → ED 15:10
DX: T83.090A Other mechanical complication of cystostomy catheter, initial encounter (principal); Y84.6 Urinary catheterization as the cause of abnormal reaction of the patient, or of later complication, without mention of misadventure at the time of the procedure; G80.9 Cerebral palsy, unspecified; I10 Essential (primary) hypertension
CPT/HCPCS: 51700; 51798; 99282

== ENCOUNTER 2020-11-27 18:23 | Outpatient (CLI) | payer MEDICARE, MEDICAID | END 2020-11-27 18:24 | disposition home or self-care (01) | LOC: EMS 18:23 | PROVIDERS: ATTEND Emergency Medicine | DX: Z74.01 Bed confinement status (principal) | CPT/HCPCS: A0425; A0428 ==

== ENCOUNTER 2020-12-12 13:41 | Outpatient (CLI) | payer MEDICARE, MEDICAID ==
--- NOTE | 2020-12-12 19:30 | XRAY Report ---
PROCEDURE: Wrist 3 View RT INDICATIONS: GANGLION CYST OF R DORSAL WRIST TECHNIQUE: 3 views of the wrist were acquired. COMPARISON: None FINDINGS: Bones: No fractures or dislocations. No suspicious bony lesions. Soft tissues: No suspicious soft tissue calcifications. IMPRESSION: No osseous abnormality. Further evaluation of ganglion cyst is recommended with focal ultrasound or M RI. Reviewed by: Christine Mantilla MD on 12/12/2020 6:29 PM LIZZETTE Approved by: Christine Mantilla MD on 12/12/2020 6:29 PM AKVINCENZO Station ID: [id number]
== END 2020-12-12 13:42 | disposition home or self-care (01) ==
LOC: DI.N 13:41
PROVIDERS: ATTEND Family Medicine
DX: M67.431 Ganglion, right wrist (principal)

== ENCOUNTER 2020-12-26 09:56 | Outpatient (CLI) | payer MEDICARE, MEDICAID | END 2020-12-26 09:57 | disposition critical access hospital (66) | LOC: EMS 09:56 | DX: T83.091A Other mechanical complication of indwelling urethral catheter, initial encounter (principal) | CPT/HCPCS: A0425; A0429 ==

== ENCOUNTER 2020-12-26 10:15 | Emergency (ER) | payer MEDICARE, MEDICAID ==
--- NOTE | 2020-12-26 10:22 | ED Physician Documentation ---
PD HPI FEMALE - Stated complaint Stated Complaint: FEMALE - History obtained from History obtained from: Patient, Caregiver - History of Present Illness Timing - onset: Today, Last night Timing - duration: Days (1) Timing - details: Gradual onset (Your suprapubic catheter has been draining poorly for the last several days and then nonsense last night with drainage around the catheter and some via urethra. She has chronic indwelling suprapubic catheter last changed 12 days ago.) Associated symptoms: Other (thicker urine output for few days.). No: Fever, C hest/shoulder pain, Hematuria Similar symptoms before: Diagnosis (has had clogged catheter intermittently in the past.) Recently seen: Not recently seen Review of Systems Constitutional: denies: Fever, Chills Respiratory: denies: Dyspnea, Cough GI: denies: Abdominal Pain, Nausea, Vomiting Musculoskeletal: denies: Back pain PD PAST MEDICAL HISTORY - Past Medical History Cardiovascular: Hypertension Respiratory: Asthma, Other Neuro: Cerebral palsy Endocrine/Autoimmune: Other GI: GERD COOK APPRENTICE: None : Indwelling catheter HEENT: Chronic vision loss Psych: Depression, Anxiety, Bipolar disorder, Post traumatic stress disorder Musculoskeletal: Osteoarthritis, Other Derm: Psoriasis - Past Surgical History Past Surgical History: Yes General: Hiatal hernia repair, EGD Ortho: Other /COOK APPRENTICE: section, Hysterectomy - Present Medications Home Medications: Ambulatory Orders Medication Instructions Recorded Confirmed Dexlansoprazole [Dexilant] 60 mg PO DAILY 04/27/13 09/14/20 Propranolol [Inderal] 20 mg PO TID 04/27/13 09/14/20 Enalapril [Vasotec] 5 mg ORAL DAILY 05/14/14 09/14/20 Nystatin Cream [Mycostatin Cream] 1 applic TOP BID PRN #60 g 12/30/15 09/14/20 Citalopram Hydrobromide [Celexa] 10 mg PO DAILY 08/22/16 09/14/20 Oxybutynin Chloride [Ditropan Xl] 10 mg PO DAILY 01/23/17 09/14/20 Quetiapine Fumarate [Seroquel Xr] 300 mg PO DAILY PM 01/23/17 09/14/20 oxyCODONE/ACET 5/325 [Percocet 5 1 - 2 tab PO PRN PRN MDD 4 03/16/17 09/14/20 mg/325 mg] Zolpidem Tartrate [Ambien] 10 mg PO QPM PRN 06/05/17 09/14/20 Topiramate 25 mg PO BID 07/31/17 09/14/20 ARIPiprazole [Abilify] 20 mg PO DAILY 08/28/17 09/14/20 Hydrocortisone 1% Oint 1 gm TP TID PRN 08/28/17 09/14/20 [Hydrocortisone] buPROPion [Wellbutrin Sr] 150 mg PO BID 08/28/17 09/14/20 Miconazole Nitrate 1 gm TP TID #5 cream..g. 03/26/18 09/14/20 hydrOXYzine pamoate [Hydroxyzine 25 mg PO ONCE PRN 07/09/18 09/14/20 Pamoate] Ferrous Sulfate 325 mg PO BID #60 tablet 07/30/18 09/14/20 Loperamide [Imodium] 2 mg PO TID PRN 04/29/19 09/14/20 Tolnaftate [Tinactin] 108 gm TP BID #1 powder 05/29/19 09/14/20 Fluconazole [Diflucan] 150 mg PO DAILY #14 tablet 08/25/19 09/14/20 Cod Liver Oil/Zinc Oxide [Desitin] 1 applic TOP TID 14 Days #1 tube 09/03/19 09/14/20 Fluconazole [Diflucan] 100 mg PO DAILY #3 tablet 01/10/20 09/14/20 Nitrofurantoin Monohyd/M-Cryst 100 mg PO BID #14 capsule 03/28/20 09/14/20 [Macrobid 100 mg Capsule] Nystatin Cream [Mycostatin Cream] 1 film TOP BID PRN #60 g 03/28/20 09/14/20 Cranberry 1 tab PO DAILY 06/22/20 09/14/20 Ondansetron Odt [Zofran] 4 mg TL Q6H PRN #10 tablet 07/04/20 09/14/20 Ketoconazole/Hydrocortisone [Pheyo 1 gm TP DAILY #30 cream..g. 07/15/20 09/14/20 2.5%-2% Cream] Zinc Oxide [Diaper Rash] 1 gm TP BID #113 cream..g. 07/15/20 09/14/20 Hyoscyamine Sulfate 0.125 mg PO QID PRN #20 tablet 08/18/20 09/14/20 Fluconazole [Diflucan] 150 mg PO ONCE #2 tablet 09/14/20 - Allergies Allergies/Adverse Reactions: Allergies Allergy/AdvReac Type Severity Reaction Status Date / Time phenazopyridine Allergy Unknown Verified 12/26/20 10:24 [From Pyridium] paroxetine HCl * [From Paxil] AdvReac Intermediate Emesis Verified 12/26/20 10:24 codeine [Codeine] AdvReac Pass Out Verified 12/26/20 10:24 - Social History Does the pt smoke?: No Smoking Status: Never smoker Does the pt drink ETOH?: No Does the pt have substance abuse?: No - Immunizations Immunizations are current?: Yes - POLST Patient has POLST: No PD ED PE NORMAL - Vitals Vital signs reviewed: Yes - General General: Alert and oriented X 3, No acute distress, Well developed/nourished - Abdomen Abdomen: Other (suprapubic catheter from suprapubic area. No signs of infection at insertion site. There is mild redness in skin fold crease c/w mild yeast, which caregiver says is being treated topically. ) - Derm Derm: Normal color, Warm and dry - Extremities Extremities: No edema, No calf tenderness / cord Results - Vitals Vitals: Vital Signs - 24 hr 12/26/20 10:18 Temperature 36.6 C Heart Rate 76 Respiratory 18 Rate Blood Pressure 105/67 O2 Saturation 100 Oxygen O2 Source Room air - Labs Labs: Laboratory Tests 12/26/20 10:40 Urine Color YELLOW Urine Clarity CLOUDY Urine pH 6.5 Ur Specific [place] 1.020 Urine Protein 30 H Urine Glucose (UA) NEGATIVE Urine Ketones NEGATIVE Urine Occult Blood LARGE H Urine Nitrite NEGATIVE Urine Bilirubin NEGATIVE Urine Urobilinogen 0.2 (NORMAL) Ur Leukocyte Esterase LARGE H Urine RBC 6-10 H Urine WBC >25 H Urine WBC Clumps PRESENT Ur Squamous Epith Cells NONE SEEN Urine Bacteria Few Ur Microscopic Review INDICATED Urine Culture Comments INDICATED PD MEDICAL DECISION MAKING - ED course Complexity details: reviewed results (expected WBCs and some bacteria, will await culture before any decision on treatment. ), considered differential (clogged catheter and requests catheter change, which is most reasonable. She is concerned about infection, and requests check UA. ) Departure - Departure Disposition: 01 Home, Self Care Clinical Impression: Suprapubic catheter dysfunction Qualifiers: Encounter type: initial encounter Qualified Code(s): T83.010A - Breakdown (mechanical) of cystostomy catheter, initial encounter Condition: Stable Record reviewed to determine appropriate education?: Yes Follow-Up: Bennie Hill MD [Primary Care Provider] - Comments: Your urine expectedly has some white cells and a few bacteria. We will await the culture results in a couple of days to see if there is a significant infection. The new catheter appears to be draining. Continue usual catheter care. Discharge Date/Time: 12/26/20 13:26
[2020-12-26 10:24] VITALS: BP 105/67
[2020-12-26] MEDS ORDERED: LIDOCAINE 2% URO-JET 5 ML SYRINGE UR STA (10:29)
[2020-12-26 10:53] LABS: BILIRUBIN,URINE NEGATIVE (NEGATIVE); GLUCOSE, URINE (UA) NEGATIVE (NEGATIVE); KETONES,URINE (UA) NEGATIVE (NEGATIVE); LEUKOCYTE ESTERASE, URINE LARGE (NEGATIVE); NITRITE,URINE NEGATIVE (NEGATIVE); OCCULT BLOOD,URINE LARGE (NEGATIVE); PH,URINE 6.5 PH (5.0-7.5); PROTEIN,URINE 30 mg/dL (NEGATIVE); UROBILINOGEN,URINE 0.2 (NORMAL) E.U./dL (NORMAL)
[2020-12-26 10:57] LABS: CLARITY,URINE CLOUDY (CLEAR)
[2020-12-26 11:04] LABS: BACTERIA,URINE Few /HPF (None Seen); SQUAMOUS EPITHELIAL CELL,UR NONE SEEN (<= Few); WBC CLUMPS,URINE PRESENT; WBC,URINE >25 /HPF (0-5)
== END 2020-12-26 13:26 | disposition home or self-care (01) ==
LOC: EDUNIT# → ED 10:15
DX: T83.010A Breakdown (mechanical) of cystostomy catheter, initial encounter (principal); Y84.6 Urinary catheterization as the cause of abnormal reaction of the patient, or of later complication, without mention of misadventure at the time of the procedure; R82.71 Bacteriuria; B37.2 Candidiasis of skin and nail; G80.9 Cerebral palsy, unspecified; I10 Essential (primary) hypertension
CPT/HCPCS: 51702; 80048; 81001; 81003; 85025; 87077; 87086; 87181; 99283

== ENCOUNTER 2020-12-26 13:24 | Outpatient (CLI) | payer MEDICARE, MEDICAID | END 2020-12-26 13:25 | disposition home or self-care (01) | LOC: EMS 13:24 | PROVIDERS: ATTEND Emergency Medicine | DX: Z74.01 Bed confinement status (principal) | CPT/HCPCS: A0425; A0428 ==

== ENCOUNTER 2021-01-06 03:58 | Outpatient (CLI) | payer MEDICARE, MEDICAID | END 2021-01-06 03:59 | disposition critical access hospital (66) | LOC: EMS 03:58 | DX: T83.038A Leakage of other urinary catheter, initial encounter (principal) | CPT/HCPCS: A0425; A0429 ==

== ENCOUNTER 2021-01-06 04:15 | Emergency (ER) | payer MEDICARE, MEDICAID ==
--- NOTE | 2021-01-06 04:41 | ED Physician Documentation ---
History of Present Illness - Stated complaint Stated Complaint: CATH ISSUE - Chief complaint Chief Complaint: General - History obtained from History obtained from: Patient - History of Present Illness Timing: How many weeks ago (2) - Additonal information Additional information: 50-year-old female disabled by cerebral palsy is in a wheelchair or bed and has a suprapubic catheter in place. This suprapubic catheter will frequently become clogged and begin to leak. She has maceration of her skin associated with leakage and she has reduced her fluid intake in order to have less urine leak on her. She has been in to see the urgent care 2 weeks ago and she has had her catheter changed out 9 days ago here in the emergency department. At that time urine looked infected and the plan was to await sensitivities to determine if treatment was required. The patient's urine grew 2 organisms methicillin- resistant staph and a Proteus. Lidia tells me today that her urologist Dr. Melara has indicated that her infection should be treated this time. The patient lives independently and has caregivers that come in and she has resisted shelter placement. She is mostly concerned today about the amount of leakage she has around her catheter the pain that she is experiencing in her buttocks from the skin maceration and now not feeling well. Review of Systems Constitutional: reports: Fatigue. denies: Fever, Chills Eyes: denies: Decreased vision Ears: denies: Ear pain Nose: denies: Congestion Throat: denies: Sore throat Cardiac: denies: Chest pain / pressure, Palpitations Respiratory: denies: Dyspnea, Cough GI: denies: Abdominal Pain, Nausea, Vomiting : reports: Incontinent, Epps Problem, Other (cath clogged with sediment, urine leaking on abdomen and into diaper. sores on buttocks) Skin: reports: Rash Musculoskeletal: denies: Neck pain, Back pain, Extremity pain Neurologic: denies: Difficulty speaking, Altered mental status PD PAST MEDICAL HISTORY - Past Medical History Cardiovascular: Hypertension Respiratory: Asthma, Other Neuro: Cerebral palsy Endocrine/Autoimmune: Other GI: GERD OPENSTACK DEVELOPER: None : Indwelling catheter HEENT: Chronic vision loss Psych: Depression, Anxiety, Bipolar disorder, Post traumatic stress disorder Musculoskeletal: Osteoarthritis, Other Derm: Psoriasis - Past Surgical History Past Surgical History: Yes General: Hiatal hernia repair, EGD Ortho: Other /OPENSTACK DEVELOPER: section, Hysterectomy - Present Medications Home Medications: Ambulatory Orders Medication Instructions Recorded Confirmed Dexlansoprazole [Dexilant] 60 mg PO DAILY 04/27/13 09/14/20 Propranolol [Inderal] 20 mg PO TID 04/27/13 09/14/20 Enalapril [Vasotec] 5 mg ORAL DAILY 05/14/14 09/14/20 Nystatin Cream [Mycostatin Cream] 1 applic TOP BID PRN #60 g 12/30/15 09/14/20 Citalopram Hydrobromide [Celexa] 10 mg PO DAILY 08/22/16 09/14/20 Oxybutynin Chloride [Ditropan Xl] 10 mg PO DAILY 01/23/17 09/14/20 Quetiapine Fumarate [Seroquel Xr] 300 mg PO DAILY PM 01/23/17 09/14/20 oxyCODONE/ACET 5/325 [Percocet 5 1 - 2 tab PO PRN PRN MDD 4 03/16/17 09/14/20 mg/325 mg] Zolpidem Tartrate [Ambien] 10 mg PO QPM PRN 06/05/17 09/14/20 Topiramate 25 mg PO BID 07/31/17 09/14/20 ARIPiprazole [Abilify] 20 mg PO DAILY 08/28/17 09/14/20 Hydrocortisone 1% Oint 1 gm TP TID PRN 08/28/17 09/14/20 [Hydrocortisone] buPROPion [Wellbutrin Sr] 150 mg PO BID 08/28/17 09/14/20 Miconazole Nitrate 1 gm TP TID #5 cream..g. 03/26/18 09/14/20 hydrOXYzine pamoate [Hydroxyzine 25 mg PO ONCE PRN 07/09/18 09/14/20 Pamoate] Ferrous Sulfate 325 mg PO BID #60 tablet 07/30/18 09/14/20 Loperamide [Imodium] 2 mg PO TID PRN 04/29/19 09/14/20 Tolnaftate [Tinactin] 108 gm TP BID #1 powder 05/29/19 09/14/20 Fluconazole [Diflucan] 150 mg PO DAILY #14 tablet 08/25/19 09/14/20 Cod Liver Oil/Zinc Oxide [Desitin] 1 applic TOP TID 14 Days #1 tube 09/03/19 09/14/20 Fluconazole [Diflucan] 100 mg PO DAILY #3 tablet 01/10/20 09/14/20 Nitrofurantoin Monohyd/M-Cryst 100 mg PO BID #14 capsule 03/28/20 09/14/20 [Macrobid 100 mg Capsule] Nystatin Cream [Mycostatin Cream] 1 film TOP BID PRN #60 g 03/28/20 09/14/20 Cranberry 1 tab PO DAILY 06/22/20 09/14/20 Ondansetron Odt [Zofran] 4 mg TL Q6H PRN #10 tablet 07/04/20 09/14/20 Ketoconazole/Hydrocortisone [Pheyo 1 gm TP DAILY #30 cream..g. 07/15/20 09/14/20 2.5%-2% Cream] Zinc Oxide [Diaper Rash] 1 gm TP BID #113 cream..g. 07/15/20 09/14/20 Hyoscyamine Sulfate 0.125 mg PO QID PRN #20 tablet 08/18/20 09/14/20 Fluconazole [Diflucan] 150 mg PO ONCE #2 tablet 09/14/20 Fluconazole [Diflucan] 100 mg PO DAILY #14 tablet 01/06/21 Sulfamethox/Trimeth 800/160 1 each PO BID #14 tablet 01/06/21 [Bactrim Ds] Zinc Oxide [Diaper Rash] 1 gm TP BID #113 gm 01/06/21 - Allergies Allergies/Adverse Reactions: Allergies Allergy/AdvReac Type Severity Reaction Status Date / Time phenazopyridine Allergy Unknown Verified 12/26/20 10:24 [From Pyridium] paroxetine HCl * [From Paxil] AdvReac Intermediate Emesis Verified 12/26/20 10:24 codeine [Codeine] AdvReac Pass Out Verified 12/26/20 10:24 - Social History Does the pt smoke?: No Smoking Status: Never smoker Does the pt drink ETOH?: No Does the pt have substance abuse?: No - Immunizations Immunizations are current?: Yes - POLST Patient has POLST: No PD ED PE NORMAL - Vitals Vital signs reviewed: Yes (normal ) - General General: Alert and oriented X 3, No acute distress, Well developed/nourished - HEENT HEENT: Atraumatic, PERRL, EOMI, Other (mucous membranes are dry) - Cardiac Cardiac: RRR, No murmur - Respiratory Respiratory: No respiratory distress, Clear bilaterally - Abdomen Abdomen: Normal bowel sounds, Soft, Non distended, No organomegaly, Other (There is a suprapubic catheter present and in the crease of the pannus there is satellite pustules consistent with yeast dermatitis this is fairly extensive. There is no specific inflammation at the insertion site of the catheter. The catheter tubing is clearly clogged with sediment. ) - Female Female : Bolt Man present (Jennifer), Other (There is erythema and induration of the skin to the buttocks there is superficial skin avulsion in two areas.The entire buttocks is erythematous with skin breakdown. ) - Back Back: No CVA TTP, No spinal TTP - Derm Derm: Normal color, Warm and dry, No rash - Extremities Extremities: No edema - Neuro Neuro: Alert and oriented X 3, ultrasonic hand solderer 2-12 intact Eye Opening: Spontaneous Motor: Obeys Commands Verbal: Oriented GCS Score: 15 - Psych Psych: Normal mood, Normal affect Results - Vitals Vitals: Vital Signs - 24 hr 01/06/21 01/06/21 01/06/21 04:20 04:27 06:56 Temperature 36.1 C L 36.1 C L 36.6 C Heart Rate 71 65 Respiratory 18 18 18 Rate Blood Pressure 110/77 110/77 116/72 O2 Saturation 100 100 96 Oxygen O2 Source Room air - Labs Labs: Laboratory Tests 01/06/21 01/06/21 01/06/21 04:42 04:42 04:42 WBC 7.5 RBC 4.39 Hgb 10.3 L Hct 34.4 L MCV 78.4 L MCH 23.5 L MCHC 29.9 L RDW 17.1 H Plt Count 347 MPV 9.7 Neut # (Auto) 5.3 Lymph # (Auto) 1.3 L [place] # (Auto) 0.5 Eos # (Auto) 0.3 Baso # (Auto) 0.0 Absolute Nucleated RBC 0.00 Nucleated RBC % 0.0 Sodium 134 L Potassium 4.3 Chloride 99 L Carbon Dioxide 26 Anion Gap 9.0 BUN 23 H Creatinine 0.8 Estimated GFR (MDRD) 76 L Glucose 105 H Lactic Acid 2.0 Calcium 9.3 Total Bilirubin 0.4 AST 13 ALT 10 Alkaline Phosphatase 89 Total Protein 8.2 Albumin 3.4 Globulin 4.8 H Albumin/Globulin Ratio 0.7 L Lipase 28 Urine Color Urine Clarity Urine pH Ur Specific [place] Urine Protein Urine Glucose (UA) Urine Ketones Urine Occult Blood Urine Nitrite Urine Bilirubin Urine Urobilinogen Ur Leukocyte Esterase Urine RBC Urine WBC Ur Squamous Epith Cells Urine Bacteria Urine Mucus Ur Microscopic Review Urine Culture Comments 01/06/21 06:07 WBC RBC Hgb Hct MCV MCH MCHC RDW Plt Count MPV Neut # (Auto) Lymph # (Auto) [place] # (Auto) Eos # (Auto) Baso # (Auto) Absolute Nucleated RBC Nucleated RBC % Sodium Potassium Chloride Carbon Dioxide Anion Gap BUN Creatinine Estimated GFR (MDRD) Glucose Lactic Acid Calcium Total Bilirubin AST ALT Alkaline Phosphatase Total Protein Albumin Globulin Albumin/Globulin Ratio Lipase Urine Color LT RED Urine Clarity CLOUDY Urine pH 7.5 Ur Specific [place] 1.020 Urine Protein 100 H Urine Glucose (UA) NEGATIVE Urine Ketones NEGATIVE Urine Occult Blood LARGE H Urine Nitrite POSITIVE H Urine Bilirubin NEGATIVE Urine Urobilinogen 0.2 (NORMAL) Ur Leukocyte Esterase MODERATE H Urine RBC TNTC H Urine WBC >25 H Ur Squamous Epith Cells FEW Squamous Urine Bacteria Many H Urine Mucus Few Strands Ur Microscopic Review INDICATED Urine Culture Comments INDICATED Procedures - IVC sono (time) 0450 Bedside IVC sono: IVC measures (cm) (0.87), Dehydration (est 2 liter deficit) PD MEDICAL DECISION MAKING - ED course Complexity details: reviewed old records, reviewed results, re-evaluated patient, considered differential, d/w patient ED course: 50-year-old female with a indwelling suprapubic catheter has a history of cerebral palsy she is disabled by this to the extent that she requires caregivers at home. She has now developed significant maceration to the skin on her buttocks and she has yeast dermatitis in the folds of her pannus. This all is a result of urine leaking around the catheter. She has previously had Pseudomonas and this was left untreated she had no treatment on her last visit to the emergency department and today we are treating with Unasyn intravenously and we will provide a prescription for Septra. This is based on her most recent urine sample. We will provide a script for barrier cream. The patient has modified her behavior and has reduced fluid intake in order to have less urine leaking on her and she is dehydrated on interrogation the inferior vena cava on the order of about 2 L she is administered a liter of saline here in the emergency department as well as the Unasyn. Departure - Departure Disposition: 01 Home, Self Care Clinical Impression: Urinary (tract) obstruction, Urinary catheter change required, Candidal intertrigo, Diaper dermatitis, Dehydration Urinary tract infection Qualifiers: Urinary tract infection type: catheter-associated UTI Indwelling urinary catheter type: cystostomy catheter Encounter type: initial encounter Qualified Code(s): T83.510A - Infection and inflammatory reaction due to cystostomy catheter, initial encounter Condition: Stable Instructions: ED Candidiasis Cutaneous, ED Dehydration, ED UTI Cystitis Female Follow-Up: Bennie Hill MD [Primary Care Provider] - Prescriptions: Sulfamethox/Trimeth 800/160 [Bactrim Ds] 1 each PO BID #14 tablet Zinc Oxide [Diaper Rash] 1 gm TP BID #113 gm Fluconazole [Diflucan] 100 mg PO DAILY #14 tablet Comments: Talk to your urologist about a solution to the leaking of the catheter as this seems to be a chronic issue that is causing other problems.
[2021-01-06 04:49] LABS: BASOPHILS % (AUTO) 0.5 %; EOSINOPHILS # (AUTO) 0.3 10^3/uL (0.0-0.7); EOSINOPHILS % (AUTO) 3.5 %; HCT - HEMATOCRIT 34.4 % (37.0-47.0); HGB - HEMOGLOBIN 10.3 g/dL (12.0-16.0); LYMPHOCYTES # (AUTO) 1.3 10^3/uL (1.5-3.5); LYMPHOCYTES % (AUTO) 17.2 %; MEAN CORPUSCULAR HEMOGLOBIN 23.5 pg (27.0-31.0); MEAN CORPUSCULAR HGB CONC 29.9 g/dL (32.0-36.0); MEAN CORPUSCULAR VOLUME 78.4 fL (81.0-99.0); MEAN PLATELET VOLUME 9.7 fL (7.9-10.8); MONOCYTES # (AUTO) 0.5 10^3/uL (0.0-1.0); MONOCYTES % (AUTO) 7.2 %; NEUTROPHILS # (AUTO) 5.3 10^3/uL (1.5-6.6); NEUTROPHILS % (AUTO) 71.3 %; PLT - PLATELET COUNT 347 10^3/uL (130-450); RED BLOOD COUNT 4.39 10^6/uL (4.20-5.40); RED CELL DISTRIBUTION WIDTH 17.1 % (12.0-15.0); WHITE BLOOD COUNT 7.5 x10^3/uL (4.8-10.8)
[2021-01-06] MEDS ORDERED: LIDOCAINE JELLY 2% 6 ML JEL.PF.APP TOP STA (04:51)
[2021-01-06] MEDS ORDERED: LIDOCAINE 2% URO-JET 5 ML SYRINGE UR ONE (04:57)
[2021-01-06] MEDS ORDERED: SODIUM CHLORIDE 0.9% 1,000 ML IV STA (05:00)
[2021-01-06 05:05] LABS: ALBUMIN 3.4 g/dL (3.2-5.5); ALBUMIN/GLOBULIN RATIO 0.7 (1.0-2.2); BILIRUBIN,TOTAL 0.4 mg/dL (0.2-1.0); CALCIUM 9.3 mg/dL (8.5-10.3); CREATININE 0.8 mg/dL (0.4-1.0); POTASSIUM 4.3 mmol/L (3.5-5.0); TOTAL PROTEIN 8.2 g/dL (6.7-8.2)
[2021-01-06] MEDS ORDERED: LIDOCAINE 2% URO-JET 5 ML SYRINGE UR STA (06:08)
[2021-01-06 06:11] LABS: BILIRUBIN,URINE NEGATIVE (NEGATIVE); GLUCOSE, URINE (UA) NEGATIVE (NEGATIVE); KETONES,URINE (UA) NEGATIVE (NEGATIVE); LEUKOCYTE ESTERASE, URINE MODERATE (NEGATIVE); NITRITE,URINE POSITIVE (NEGATIVE); OCCULT BLOOD,URINE LARGE (NEGATIVE); PH,URINE 7.5 PH (5.0-7.5); PROTEIN,URINE 100 mg/dL (NEGATIVE); UROBILINOGEN,URINE 0.2 (NORMAL) E.U./dL (NORMAL)
[2021-01-06 06:21] LABS: CLARITY,URINE CLOUDY (CLEAR)
[2021-01-06 06:27] LABS: WBC,URINE >25 /HPF (0-5)
[2021-01-06] MEDS ORDERED: AMPICILLIN/SULBACTAM 1.5 GM in SODIUM CHLORIDE 0.9% MINIBAG 100 ML IV STA (06:27)
[2021-01-06 06:28] LABS: BACTERIA,URINE Many /HPF (None Seen); MUCUS,URINE Few Strands; RBC,URINE TNTC /HPF (0-5); SQUAMOUS EPITHELIAL CELL,UR FEW Squamous (<= Few)
[2021-01-06 08:48] VITALS: BP 94/61
== END 2021-01-06 09:10 | disposition home or self-care (01) ==
LOC: EDUNIT# → ED 04:15
DX: T83.510A Infection and inflammatory reaction due to cystostomy catheter, initial encounter (principal); T83.030A Leakage of cystostomy catheter, initial encounter; Y84.6 Urinary catheterization as the cause of abnormal reaction of the patient, or of later complication, without mention of misadventure at the time of the procedure; L98.411 Non-pressure chronic ulcer of buttock limited to breakdown of skin; B37.2 Candidiasis of skin and nail; L30.4 Erythema intertrigo; L22 Diaper dermatitis; E86.0 Dehydration; G80.9 Cerebral palsy, unspecified; I10 Essential (primary) hypertension
CPT/HCPCS: 36415; 51702; 80053; 81001; 81003; 83605; 83690; 85025; 87040; 87077; 87086; 87181; 99284

== ENCOUNTER 2021-01-06 09:44 | Outpatient (CLI) | payer MEDICARE, MEDICAID | END 2021-01-06 09:45 | disposition home or self-care (01) | LOC: EMS 09:44 | PROVIDERS: ATTEND Emergency Medicine | DX: N39.0 Urinary tract infection, site not specified (principal); T83.038A Leakage of other urinary catheter, initial encounter; G80.9 Cerebral palsy, unspecified; Z74.01 Bed confinement status | CPT/HCPCS: A0425; A0428 ==

== ENCOUNTER 2021-01-22 11:01 | Emergency (ER) | payer MEDICARE, MEDICAID ==
--- OUTSIDE RECORDS SUMMARY | 2021-01-22 11:05 | EXTERNAL MEDICAL SUMMARY RPT | Continuity of Care Document ---
:1970 Demographics Phone Unavailable Preferred Language Unknown Marital Status Unknown Yazdanism Affiliation Unknown Race Unknown Ethnic Group Unknown Author Organization [facility] Address [address] [id number] Phone Allergies Encounters Medications Problems Results
[2021-01-22 11:23] VITALS: BP 126/108
--- OUTSIDE RECORDS SUMMARY | 2021-01-22 12:13 | EXTERNAL MEDICAL SUMMARY RPT | Continuity of Care Document ---
:1970 Demographics Phone Unavailable Preferred Language Unknown Marital Status Unknown Denominational Affiliation Unknown Race Unknown Ethnic Group Unknown Author Organization [facility] Address [address] [phone] Phone Allergies Encounters Medications Problems Results
--- NOTE | 2021-01-22 13:22 | ED Physician Documentation ---
History of Present Illness - Stated complaint Stated Complaint: CATHETER LEAKING - Chief complaint Chief Complaint: General - History obtained from History obtained from: Patient - History of Present Illness Timing: Today Pain level max: 0 Pain level now: 0 - Additonal information Additional information: 50-year-old female with a chronic indwelling suprapubic Epps catheter. She states that it has been leaking since it was replaced on Thursday. Here requesting a change. No fevers. No vomiting. No chills. Nothing makes it better or worse Review of Systems Constitutional: denies: Fever, Chills Respiratory: denies: Cough GI: denies: Abdominal Pain, Vomiting, Diarrhea PD PAST MEDICAL HISTORY - Past Medical History Past Medical History: Yes Cardiovascular: Hypertension Respiratory: Asthma, Other Neuro: Cerebral palsy Endocrine/Autoimmune: Other GI: GERD SENIOR WRITER: None : Indwelling catheter HEENT: Chronic vision loss Psych: Depression, Anxiety, Bipolar disorder, Post traumatic stress disorder Musculoskeletal: Osteoarthritis, Other Derm: Psoriasis - Past Surgical History Past Surgical History: Yes General: Hiatal hernia repair, EGD Ortho: Other /SENIOR WRITER: section, Hysterectomy - Present Medications Home Medications: Ambulatory Orders Medication Instructions Recorded Confirmed Dexlansoprazole [Dexilant] 60 mg PO DAILY 04/27/13 09/14/20 Propranolol [Inderal] 20 mg PO TID 04/27/13 09/14/20 Enalapril [Vasotec] 5 mg ORAL DAILY 05/14/14 09/14/20 Nystatin Cream [Mycostatin Cream] 1 applic TOP BID PRN #60 g 12/30/15 09/14/20 Citalopram Hydrobromide [Celexa] 10 mg PO DAILY 08/22/16 09/14/20 Oxybutynin Chloride [Ditropan Xl] 10 mg PO DAILY 01/23/17 09/14/20 Quetiapine Fumarate [Seroquel Xr] 300 mg PO DAILY PM 01/23/17 09/14/20 oxyCODONE/ACET 5/325 [Percocet 5 1 - 2 tab PO PRN PRN MDD 4 03/16/17 09/14/20 mg/325 mg] Zolpidem Tartrate [Ambien] 10 mg PO QPM PRN 06/05/17 09/14/20 Topiramate 25 mg PO BID 07/31/17 09/14/20 ARIPiprazole [Abilify] 20 mg PO DAILY 08/28/17 09/14/20 Hydrocortisone 1% Oint 1 gm TP TID PRN 08/28/17 09/14/20 [Hydrocortisone] buPROPion [Wellbutrin Sr] 150 mg PO BID 08/28/17 09/14/20 Miconazole Nitrate 1 gm TP TID #5 cream..g. 03/26/18 09/14/20 hydrOXYzine pamoate [Hydroxyzine 25 mg PO ONCE PRN 07/09/18 09/14/20 Pamoate] Ferrous Sulfate 325 mg PO BID #60 tablet 07/30/18 09/14/20 Loperamide [Imodium] 2 mg PO TID PRN 04/29/19 09/14/20 Tolnaftate [Tinactin] 108 gm TP BID #1 powder 05/29/19 09/14/20 Fluconazole [Diflucan] 150 mg PO DAILY #14 tablet 08/25/19 09/14/20 Cod Liver Oil/Zinc Oxide [Desitin] 1 applic TOP TID 14 Days #1 tube 09/03/19 09/14/20 Fluconazole [Diflucan] 100 mg PO DAILY #3 tablet 01/10/20 09/14/20 Nitrofurantoin Monohyd/M-Cryst 100 mg PO BID #14 capsule 03/28/20 09/14/20 [Macrobid 100 mg Capsule] Nystatin Cream [Mycostatin Cream] 1 film TOP BID PRN #60 g 03/28/20 09/14/20 Cranberry 1 tab PO DAILY 06/22/20 09/14/20 Ondansetron Odt [Zofran] 4 mg TL Q6H PRN #10 tablet 07/04/20 09/14/20 Ketoconazole/Hydrocortisone [Pheyo 1 gm TP DAILY #30 cream..g. 07/15/20 09/14/20 2.5%-2% Cream] Zinc Oxide [Diaper Rash] 1 gm TP BID #113 cream..g. 07/15/20 09/14/20 Hyoscyamine Sulfate 0.125 mg PO QID PRN #20 tablet 08/18/20 09/14/20 Fluconazole [Diflucan] 150 mg PO ONCE #2 tablet 09/14/20 Fluconazole [Diflucan] 100 mg PO DAILY #14 tablet 01/06/21 Sulfamethox/Trimeth 800/160 1 each PO BID #14 tablet 01/06/21 [Bactrim Ds] Zinc Oxide [Diaper Rash] 1 gm TP BID #113 gm 01/06/21 - Allergies Allergies/Adverse Reactions: Allergies Allergy/AdvReac Type Severity Reaction Status Date / Time phenazopyridine Allergy Unknown Verified 01/22/21 11:23 [From Pyridium] paroxetine HCl * [From Paxil] AdvReac Intermediate Emesis Verified 01/22/21 11:23 codeine [Codeine] AdvReac Pass Out Verified 01/22/21 11:23 - Social History Does the pt smoke?: No Smoking Status: Never smoker Does the pt drink ETOH?: No Does the pt have substance abuse?: No - Immunizations Immunizations are current?: Yes - POLST Patient has POLST: No PD ED PE NORMAL - Vitals Vital signs reviewed: Yes - General General: Alert and oriented X 3, No acute distress - HEENT HEENT: Moist mucous membranes - Neck Neck: Supple, no meningeal sign - Cardiac Cardiac: RRR, Strong equal pulses - Respiratory Respiratory: No respiratory distress, Clear bilaterally - Abdomen Abdomen: Soft, Non tender, Non distended - Derm Derm: Warm and dry - Neuro Neuro: Alert and oriented X 3 - Free text exam Free text exam: Suprapubic catheter in place with slight leakage of urine. Results - Vitals Vitals: Vital Signs - 24 hr 01/22/21 11:19 Temperature 36.6 C Heart Rate 81 Respiratory 20 Rate Blood Pressure 126/108 H O2 Saturation 99 Oxygen O2 Source Room air PD MEDICAL DECISION MAKING - ED course Complexity details: considered differential, d/w patient ED course: The suprapubic catheter was changed. No complications. Patient will follow up with her doctor for further care. Patient counseled regarding signs and symptoms for which I believe and urgent re-evaluation would be necessary. Patient with good understanding of and agreement to plan and is comfortable going home at this time This document was made in part using voice recognition software. While efforts are made to proofread this document, sound alike and grammatical errors may occur. Departure - Departure Disposition: 01 Home, Self Care Clinical Impression: Suprapubic catheter Condition: Good Instructions: ED Catheter Care Epps Follow-Up: Bennie Hill MD [Primary Care Provider] - Within 1 week Comments: Follow-up with your doctor for further care. Return if you worsen.
[2021-01-22] MEDS ORDERED: LIDOCAINE JELLY 2% 6 ML JEL.PF.APP TOP STA (14:01)
== END 2021-01-22 14:28 | disposition home or self-care (01) ==
LOC: ED 11:01
DX: T83.030A Leakage of cystostomy catheter, initial encounter (principal); Y84.6 Urinary catheterization as the cause of abnormal reaction of the patient, or of later complication, without mention of misadventure at the time of the procedure; G80.9 Cerebral palsy, unspecified; I10 Essential (primary) hypertension
CPT/HCPCS: 51702; 99281; 99283

== ENCOUNTER 2021-02-15 21:19 | Outpatient (CLI) | payer MEDICARE, MEDICAID | END 2021-02-15 21:20 | disposition critical access hospital (66) | LOC: EMS 21:19 | DX: S31.829A Unspecified open wound of left buttock, initial encounter (principal); X58.XXXA Exposure to other specified factors, initial encounter | CPT/HCPCS: A0425; A0429 ==

== ENCOUNTER 2021-02-15 21:39 | Inpatient (IN) | payer MEDICARE, MEDICAID ==
--- NOTE | 2021-02-15 21:50 | ED Physician Documentation ---
PD HPI SKIN - Stated complaint Stated Complaint: BED SORES - History obtained from History obtained from: Patient, Caregiver - History of Present Illness Timing - onset: How many days ago (several days of worsening gluteal and inguinal rashes with pain and redness. Seen by Home Health Nurse today and she noted remarkable worsening of rash with breakdown, redness, swelling; no general symptoms of fever nor malaise.) Timing - duration: Days Timing - details: Gradual onset (typical with small red areas and mild breakdown superficially. 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) Skin: reports: Lesions (skin breakdown gluteal area chronic, with much worse the past few days) PD PAST MEDICAL HISTORY - Past Medical History Cardiovascular: Hypertension Respiratory: Asthma, Other Neuro: Cerebral palsy Endocrine/Autoimmune: Other GI: GERD VP SITE: None : Indwelling catheter HEENT: Chronic vision loss Psych: Depression, Anxiety, Bipolar disorder, Post traumatic stress disorder Musculoskeletal: Osteoarthritis, Other Derm: Psoriasis - Past Surgical History Past Surgical History: Yes General: Hiatal hernia repair, EGD Ortho: Other /VP SITE: section, Hysterectomy - Present Medications Home Medications: Ambulatory Orders Medication Instructions Recorded Confirmed Dexlansoprazole [Dexilant] 60 mg PO DAILY 04/27/13 02/15/21 Propranolol [Inderal] 20 mg PO TID 04/27/13 02/15/21 Enalapril [Vasotec] 5 mg ORAL DAILY 05/14/14 02/15/21 Nystatin Cream [Mycostatin Cream] 1 applic TOP BID PRN #60 g 12/30/15 02/15/21 Citalopram Hydrobromide [Celexa] 10 mg PO DAILY 08/22/16 02/15/21 Oxybutynin Chloride [Ditropan Xl] 10 mg PO DAILY 01/23/17 02/15/21 Quetiapine Fumarate [Seroquel Xr] 300 mg PO DAILY PM 01/23/17 02/15/21 oxyCODONE/ACET 5/325 [Percocet 5 1 - 2 tab PO PRN PRN MDD 4 03/16/17 02/15/21 mg/325 mg] Zolpidem Tartrate [Ambien] 10 mg PO QPM PRN 06/05/17 02/15/21 Topiramate 25 mg PO BID 07/31/17 02/15/21 ARIPiprazole [Abilify] 20 mg PO DAILY 08/28/17 02/15/21 Hydrocortisone 1% Oint 1 gm TP TID PRN 08/28/17 02/15/21 [Hydrocortisone] buPROPion [Wellbutrin Sr] 150 mg PO BID 08/28/17 02/15/21 Miconazole Nitrate 1 gm TP TID #5 cream..g. 03/26/18 02/15/21 hydrOXYzine pamoate [Hydroxyzine 25 mg PO ONCE PRN 07/09/18 02/15/21 Pamoate] Ferrous Sulfate 325 mg PO BID #60 tablet 07/30/18 02/15/21 Loperamide [Imodium] 2 mg PO TID PRN 04/29/19 02/15/21 Tolnaftate [Tinactin] 108 gm TP BID #1 powder 05/29/19 02/15/21 Fluconazole [Diflucan] 150 mg PO DAILY #14 tablet 08/25/19 02/15/21 Cod Liver Oil/Zinc Oxide [Desitin] 1 applic TOP TID 14 Days #1 tube 09/03/19 02/15/21 Fluconazole [Diflucan] 100 mg PO DAILY #3 tablet 01/10/20 02/15/21 Nitrofurantoin Monohyd/M-Cryst 100 mg PO BID #14 capsule 03/28/20 02/15/21 [Macrobid 100 mg Capsule] Nystatin Cream [Mycostatin Cream] 1 film TOP BID PRN #60 g 03/28/20 02/15/21 Cranberry 1 tab PO DAILY 06/22/20 02/15/21 Ondansetron Odt [Zofran] 4 mg TL Q6H PRN #10 tablet 07/04/20 02/15/21 Ketoconazole/Hydrocortisone [Pheyo 1 gm TP DAILY #30 cream..g. 07/15/20 02/15/21 2.5%-2% Cream] Zinc Oxide [Diaper Rash] 1 gm TP BID #113 cream..g. 07/15/20 02/15/21 Hyoscyamine Sulfate 0.125 mg PO QID PRN #20 tablet 08/18/20 02/15/21 Fluconazole [Diflucan] 150 mg PO ONCE #2 tablet 09/14/20 02/15/21 Fluconazole [Diflucan] 100 mg PO DAILY #14 tablet 01/06/21 02/15/21 Sulfamethox/Trimeth 800/160 1 each PO BID #14 tablet 01/06/21 02/15/21 [Bactrim Ds] Zinc Oxide [Diaper Rash] 1 gm TP BID #113 gm 01/06/21 02/15/21 - Allergies Allergies/Adverse Reactions: Allergies Allergy/AdvReac Type Severity Reaction Status Date / Time phenazopyridine Allergy Unknown Verified 02/15/21 21:54 [From Pyridium] paroxetine HCl * [From Paxil] AdvReac Intermediate Emesis Verified 02/15/21 21:54 codeine [Codeine] AdvReac Pass Out Verified 02/15/21 21:54 - Social History Does the pt smoke?: No Smoking Status: Never smoker Does the pt drink ETOH?: No Does the pt have substance abuse?: No - Immunizations Immunizations are current?: Yes - POLST Patient has POLST: No PD ED PE NORMAL - Vitals Vital signs reviewed: Yes - General General: Alert and oriented X 3, No acute distress, Well developed/nourished - HEENT HEENT: Atraumatic - Neck Neck: Supple, no meningeal sign, No adenopathy - Cardiac Cardiac: RRR, No murmur - Respiratory Respiratory: No respiratory distress, Clear bilaterally - Female Female : Truck Crane Operator present (caregiver), Other (significant redness, swelling, tender, warmth in inguinal and gluteal areas, with patches of skin breakdown to fatty layer. No purulence noted per se. butcher appears draining okay, with some cloudiness to it. ) - Back Back: No CVA TTP - Derm Derm: Normal color, Warm and dry Results - Vitals Vitals: Vital Signs - 24 hr 02/15/21 21:44 Temperature 36.7 C Heart Rate 68 Respiratory 18 Rate Blood Pressure 119/73 O2 Saturation 98 Oxygen O2 Source Room air - Labs Labs: Laboratory Tests 02/15/21 02/15/21 02/15/21 22:36 22:36 22:36 WBC 7.7 RBC 3.99 L Hgb 9.6 L Hct 32.6 L MCV 81.7 MCH 24.1 L MCHC 29.4 L RDW 17.5 H Plt Count 370 MPV 9.4 Neut # (Auto) 5.4 Lymph # (Auto) 1.3 L [place] # (Auto) 0.6 Eos # (Auto) 0.3 Baso # (Auto) 0.0 Absolute Nucleated RBC 0.00 Nucleated RBC % 0.0 Sodium 132 L Potassium 4.3 Chloride 100 L Carbon Dioxide 22 Anion Gap 10.0 BUN 13 Creatinine 0.8 Estimated GFR (MDRD) 76 L Glucose 95 Lactic Acid 1.4 Calcium 8.5 Total Bilirubin 0.5 AST 12 ALT < 10 L Alkaline Phosphatase 86 Total Protein 7.5 Albumin 3.1 L Globulin 4.4 H Albumin/Globulin Ratio 0.7 L Lipase 27 Departure - Departure Disposition: ED Place in Observation Clinical Impression: Pressure ulcer, Cellulitis of buttock Condition: Stable Discharge Date/Time: 02/16/21 00:00
[2021-02-15] MEDS ORDERED: cefTRIAXone 1 GM VIAL IVP STA (22:06)
[2021-02-15] MEDS ORDERED: FLUCONAZOLE 200 MG/100 ML 100 ML IV ONE (22:06)
[2021-02-15 22:39] LABS: BASOPHILS % (AUTO) 0.5 %; EOSINOPHILS # (AUTO) 0.3 10^3/uL (0.0-0.7); EOSINOPHILS % (AUTO) 4.2 %; HCT - HEMATOCRIT 32.6 % (37.0-47.0); HGB - HEMOGLOBIN 9.6 g/dL (12.0-16.0); LYMPHOCYTES # (AUTO) 1.3 10^3/uL (1.5-3.5); LYMPHOCYTES % (AUTO) 17.4 %; MEAN CORPUSCULAR HEMOGLOBIN 24.1 pg (27.0-31.0); MEAN CORPUSCULAR HGB CONC 29.4 g/dL (32.0-36.0); MEAN CORPUSCULAR VOLUME 81.7 fL (81.0-99.0); MEAN PLATELET VOLUME 9.4 fL (7.9-10.8); MONOCYTES # (AUTO) 0.6 10^3/uL (0.0-1.0); MONOCYTES % (AUTO) 7.8 %; NEUTROPHILS # (AUTO) 5.4 10^3/uL (1.5-6.6); NEUTROPHILS % (AUTO) 69.8 %; PLT - PLATELET COUNT 370 10^3/uL (130-450); RED BLOOD COUNT 3.99 10^6/uL (4.20-5.40); RED CELL DISTRIBUTION WIDTH 17.5 % (12.0-15.0); WHITE BLOOD COUNT 7.7 x10^3/uL (4.8-10.8)
[2021-02-15 22:54] LABS: ALBUMIN 3.1 g/dL (3.2-5.5); ALBUMIN/GLOBULIN RATIO 0.7 (1.0-2.2); ALKALINE PHOSPHATASE 86 IU/L (42-121); ALT ALANINE AMINOTRANSFERASE < 10 IU/L (10-60); AST ASPARTATE AMINOTRANSFERASE 12 IU/L (10-42); BILIRUBIN,TOTAL 0.5 mg/dL (0.2-1.0); BUN - BLOOD UREA NITROGEN 13 mg/dL (6-20); CALCIUM 8.5 mg/dL (8.5-10.3); CARBON DIOXIDE - CO2 22 mmol/L (21-32); CHLORIDE 100 mmol/L (101-111); CREATININE 0.8 mg/dL (0.4-1.0); GFR - MDRD 76 (>89); GLUCOSE 95 mg/dL (70-100); LIPASE 27 U/L (22-51); POTASSIUM 4.3 mmol/L (3.5-5.0); SODIUM 132 mmol/L (135-145); TOTAL PROTEIN 7.5 g/dL (6.7-8.2)
[2021-02-15] MEDS ORDERED: ONDANSETRON 4 MG/2 ML VIAL IVP PRN (23:26)
[2021-02-15] MEDS ORDERED: SODIUM CHLORIDE FLUSH 0.9% 10 ML SYRINGE IVP PRN (23:26)
[2021-02-15] MEDS ORDERED: LOPERAMIDE 2 MG CAPSULE PO PRN (23:34)
[2021-02-15] MEDS ORDERED: hydrOXYzine PAMOATE 25 MG CAPSULE PO PRN (23:34)
[2021-02-15] MEDS ORDERED: HYDROCORTISONE 1% OINTMENT 28 GM TUBE TOP PRN (23:34)
--- NOTE | 2021-02-15 23:59 | HISTORY & PHYSICAL EXAMINATION ---
Chief Complaint - Chief Complaint Chief Complaint: skin breakdown History of Present Illness - Admitted From Admitted From:: ED - History Obtained From History obtained from: ED and the patient - History of Present Illness HPI Comment/Other: This is a 50-year-old WF with history of hypertension, GERD, depression, PTSD, cerebral palsy with neurogenic bladder, chronic indwelling bladder catheter, and frequent UTIs in the past. She is bedbound and has contractures, she has a wheelchair. The patient gets a visiting nurse who has been treating a stage I sacral decubitus ulcer with topical management. She is also on many chronic oral antibiotics. After the recent heat wave of 3 days, her hygiene led to worsening of the sacral decubiti, and thus she was brought to the emergency room. The ED provider found multiple sacral decubitus ulcer, deeper than stage 1, down to subcutaneous fat, some are oozing and there is also surrounding cellulitis of an extensive area. The patient is afebrile, has a normal WBC and normal Lactic Acid level. She is being placed in Observation status to start antibiotics and obtain general surgery consult for debridement and recommend ations for wound care. History - Past Medical History Cardiovascular: reports: Hypertension Respiratory: reports: Asthma, Other Neuro: reports: Cerebral palsy Endocrine/Autoimmune: reports: Other GI: reports: GERD SPECTACLE TRUER: reports: None : reports: Indwelling catheter HEENT: reports: Chronic vision loss Psych: reports: Depression, Anxiety, Bipolar disorder, Post traumatic stress disorder Musculoskeletal: reports: Osteoarthritis, Other Derm: reports: Psoriasis MRSA Hx?: No - Past Surgical History General: reports: Hiatal hernia repair, EGD Ortho: reports: Other /SPECTACLE TRUER: reports: section, Hysterectomy - Family & Social History Family History: Brother: Alive and Well Family History Comment/Other: She was adopted Living arrangement: At home Social History Notes: Patient does not drink alcohol. She quit smoking 20+ years ago. - Substance History Use: Uses substance without health or social issues: NONE - POLST Patient has POLST: No Meds/Allgy - Home Medications Home Medications: Ambulatory Orders Medication Instructions Recorded Confirmed Dexlansoprazole [Dexilant] 60 mg PO DAILY 04/27/13 02/15/21 Propranolol [Inderal] 20 mg PO TID 04/27/13 02/15/21 Enalapril [Vasotec] 5 mg ORAL DAILY 05/14/14 02/15/21 Nystatin Cream [Mycostatin Cream] 1 applic TOP BID PRN #60 g 12/30/15 02/15/21 Citalopram Hydrobromide [Celexa] 10 mg PO DAILY 08/22/16 02/15/21 Oxybutynin Chloride [Ditropan Xl] 10 mg PO DAILY 01/23/17 02/15/21 Quetiapine Fumarate [Seroquel Xr] 300 mg PO DAILY PM 01/23/17 02/15/21 oxyCODONE/ACET 5/325 [Percocet 5 1 - 2 tab PO PRN PRN MDD 4 03/16/17 02/15/21 mg/325 mg] Zolpidem Tartrate [Ambien] 10 mg PO QPM PRN 06/05/17 02/15/21 Topiramate 25 mg PO BID 07/31/17 02/15/21 ARIPiprazole [Abilify] 20 mg PO DAILY 08/28/17 02/15/21 Hydrocortisone 1% Oint 1 gm TP TID PRN 08/28/17 02/15/21 [Hydrocortisone] buPROPion [Wellbutrin Sr] 150 mg PO BID 08/28/17 02/15/21 Miconazole Nitrate 1 gm TP TID #5 cream..g. 03/26/18 02/15/21 hydrOXYzine pamoate [Hydroxyzine 25 mg PO ONCE PRN 07/09/18 02/15/21 Pamoate] Ferrous Sulfate 325 mg PO BID #60 tablet 07/30/18 02/15/21 Loperamide [Imodium] 2 mg PO TID PRN 04/29/19 02/15/21 Tolnaftate [Tinactin] 108 gm TP BID #1 powder 05/29/19 02/15/21 Fluconazole [Diflucan] 150 mg PO DAILY #14 tablet 08/25/19 02/15/21 Cod Liver Oil/Zinc Oxide [Desitin] 1 applic TOP TID 14 Days #1 tube 09/03/19 02/15/21 Fluconazole [Diflucan] 100 mg PO DAILY #3 tablet 01/10/20 02/15/21 Nitrofurantoin Monohyd/M-Cryst 100 mg PO BID #14 capsule 03/28/20 02/15/21 [Macrobid 100 mg Capsule] Nystatin Cream [Mycostatin Cream] 1 film TOP BID PRN #60 g 03/28/20 02/15/21 Cranberry 1 tab PO DAILY 06/22/20 02/15/21 Ondansetron Odt [Zofran] 4 mg TL Q6H PRN #10 tablet 07/04/20 02/15/21 Ketoconazole/Hydrocortisone [Pheyo 1 gm TP DAILY #30 cream..g. 07/15/20 02/15/21 2.5%-2% Cream] Zinc Oxide [Diaper Rash] 1 gm TP BID #113 cream..g. 07/15/20 02/15/21 Hyoscyamine Sulfate 0.125 mg PO QID PRN #20 tablet 08/18/20 02/15/21 Fluconazole [Diflucan] 150 mg PO ONCE #2 tablet 09/14/20 02/15/21 Fluconazole [Diflucan] 100 mg PO DAILY #14 tablet 01/06/21 02/15/21 Sulfamethox/Trimeth 800/160 1 each PO BID #14 tablet 01/06/21 02/15/21 [Bactrim Ds] Zinc Oxide [Diaper Rash] 1 gm TP BID #113 gm 01/06/21 02/15/21 - Allergies Allergies/Adverse Reactions: Allergies Allergy/AdvReac Type Severity Reaction Status Date / Time phenazopyridine Allergy Unknown Verified 02/15/21 21:54 [From Pyridium] paroxetine HCl * [From Paxil] AdvReac Intermediate Emesis Verified 02/15/21 21:54 codeine [Codeine] AdvReac Pass Out Verified 02/15/21 21:54 Review of Systems - Genitourinary Genitourinary: reports: Other (chronic butcher cath) - Musculoskeletal Musculoskeletal: reports: Limited range of motion, Muscle weakness - Integumentary Integumentary: reports: Lesions, Other (Chronic leg lymphedema to knees, both lower legs are wrapped and in foot braces and feet are in sneakers (Pt refuses to unbandage to visualize).) - Neurological Neurological: reports: General weakness, Focal weakness, Other (Pain of both lower extremities) - Psychiatric Psychiatric: reports: Depression, Other (PTSD) - All Other Systems All Other Systems: reports: Reviewed and negative Exam - Vital Signs Vital Signs: Vital Signs x48h Temp Pulse Resp BP Pulse Ox 02/15/21 21:44 36.7 C 68 18 119/73 98 - Physical Exam General Appearance: positive: No acute distress, Alert Eyes Bilateral: positive: Other (Legally blind, 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) ENT: positive: No signs of dehydration Neck: positive: Nml inspection Respiratory: positive: No respiratory distress Cardiovascular: positive: Regular rate & rhythm Abdomen: positive: Non-tender, Other (Obese with a pannus, butcher cath in place) Rectal: positive: Other (sacral decubiti) Skin: positive: Other (Many sacral decubiti and surrounding redness of skin, some open and oozing sero-sanguinous, redness extends from sacrum down both thighs medially (approx 25-30 cm in length) and across 1/[address] of both buttucks (approx 10 cm span).) Neurologic/Psychiatric: positive: Oriented x3, Other (Numbness and pain of shins, R hand contracture, generalized weakness legs > arms.) Conclusion/Plan - Problem List (1) Sacral decubitus ulcer Conclusion/Plan: This is a large area of involvement and it has various stages of ulceration. Will place an absorbent pad for drainage. Will order general surgery consult for debridement. Continue with her narcotic pain meds as needed. We will start empiric IV antibiotics. She will need to be rolled and kept off of her back as much as possible Qualifiers: Pressure injury stage: unstageable Qualified Code(s): L89.150 - Pressure ulcer of sacral region, unstageable (2) Cellulitis of buttock Conclusion/Plan: Follow CBC daily. We will obtain wound culture from the buttocks. We will start empiric IV Vanco and iv Pip-Tazo. (3) Cerebral palsy Conclusion/Plan: As per history. Continue with her usual home medication and usual management, foot braces. Keeping her off of her back is much as possible will be helpful (4) Neurogenic bladder Conclusion/Plan: She has a chronic indwelling Butcher and gets it changed intermittently. We will order standard Butcher catheter care (5) Depression Conclusion/Plan: Continue with her usual meds and management (6) HTN (hypertension) Conclusion/Plan: Continue with her usual meds and management (7) Anemia Conclusion/Plan: We will be following her WBC therefore monitor her hemoglobin daily. If there is a drop will obtain B12, folate levels and iron store labs (8) Lymphedema Conclusion/Plan: She explains that the reason her feet are both wrapped in Nils bandages is chronic lymphedema. There appears to be no swelling as I examined her through her Nils bandages. The patient does not want the bandages and foot braces and sneakers removed because of neuropathy pain when they are handled. - Lab Results Fish Bones: 02/15/21 22:36 02/15/21 22:36
[2021-02-16 00:40] LABS: B. PARAPERTUSSIS- RESP PCR PAN NOT DETECTED; B. PERTUSSIS- RESP PCR PANEL NOT DETECTED; C. PNEUMONIAE- RESP PCR PANEL NOT DETECTED; CORONAVIRUS 229E-RESP PCR NOT DETECTED; CORONAVIRUS HKU1-RESP PCR NOT DETECTED; CORONAVIRUS NL63-RESP PCR NOT DETECTED; CORONAVIRUS OC43-RESP PCR NOT DETECTED; HUMAN METAPNEUMOVIRUS NOT DETECTED; INFLUENZA A- RESP PCR PANEL NOT DETECTED; INFLUENZA B - RESP PCR PANEL NOT DETECTED; M. PNEUMONIAE- RESP PCR PANEL NOT DETECTED; PARAINFLUENZA VIRUS 1 NOT DETECTED; PARAINFLUENZA VIRUS 2 NOT DETECTED; PARAINFLUENZA VIRUS 3 NOT DETECTED; PARAINFLUENZA VIRUS 4 NOT DETECTED; RHINOVIRUS/ENTEROVIRUS NOT DETECTED; RSV- RESP PCR PANEL NOT DETECTED; SARS-CoV-2 -RESP PCR PANEL NOT DETECTED
[2021-02-16] MEDS: SODIUM CHLORIDE 0.9% 1,000 ML IV SCH (00:50)
[2021-02-16] MEDS: ACETAMINOPHEN 325 MG TABLET PO PRN (00:50)
[2021-02-16] MEDS: SODIUM CHLORIDE FLUSH 0.9% 10 ML SYRINGE IVP SCH ×3 (00:51→17:03)
[2021-02-16] MEDS ORDERED: ACETAMINOPHEN 325 MG TABLET PO PRN (01:58)
[2021-02-16] MEDS ORDERED: VANCOMYCIN INJ 1.5 GM in SODIUM CHLORIDE 0.9% 500 ML IV SCH (02:00)
[2021-02-16 05:28] LABS: BASOPHILS % (AUTO) 0.5 %; EOSINOPHILS # (AUTO) 0.3 10^3/uL (0.0-0.7); EOSINOPHILS % (AUTO) 3.8 %; HCT - HEMATOCRIT 28.1 % (37.0-47.0); HGB - HEMOGLOBIN 8.5 g/dL (12.0-16.0); LYMPHOCYTES # (AUTO) 1.5 10^3/uL (1.5-3.5); LYMPHOCYTES % (AUTO) 19.4 %; MEAN CORPUSCULAR HEMOGLOBIN 24.2 pg (27.0-31.0); MEAN CORPUSCULAR HGB CONC 30.2 g/dL (32.0-36.0); MEAN CORPUSCULAR VOLUME 80.1 fL (81.0-99.0); MEAN PLATELET VOLUME 9.6 fL (7.9-10.8); MONOCYTES # (AUTO) 0.6 10^3/uL (0.0-1.0); MONOCYTES % (AUTO) 7.6 %; NEUTROPHILS # (AUTO) 5.3 10^3/uL (1.5-6.6); NEUTROPHILS % (AUTO) 68.3 %; PLT - PLATELET COUNT 324 10^3/uL (130-450); RED BLOOD COUNT 3.51 10^6/uL (4.20-5.40); RED CELL DISTRIBUTION WIDTH 17.4 % (12.0-15.0); WHITE BLOOD COUNT 7.7 x10^3/uL (4.8-10.8)
[2021-02-16 05:37] LABS: CALCIUM 8.2 mg/dL (8.5-10.3); CREATININE 0.7 mg/dL (0.4-1.0)
[2021-02-16] MEDS ORDERED: PIPERACILLIN/TAZOBACTAM 3.375 GM in SODIUM CHLORIDE 0.9% MINIBAG 100 ML IV SCH (06:00)
[2021-02-16] MEDS ORDERED: COD LIVER OIL/ZINC OXIDE 113 GM TUBE TOP SCH ×2 (06:00→09:00)
--- NOTE | 2021-02-16 08:06 | PROVIDER PROGRESS NOTE ---
Assessment/Plan - Problem List (1) Sacral decubitus ulcer Qualifiers: Pressure injury stage: unstageable Qualified Code(s): L89.150 - Pressure ulcer of sacral region, unstageable Assessment/Plan: I spoke with Dr. Michael Asher of general surgery who is agreeable to see the patient in consult. We will await his recommendations. We will continue pain management as needed. Patient is on vancomycin and Zosyn empirically. (2) Cellulitis of buttock Assessment/Plan: On vancomycin and Zosyn. Wound cultures at time of debridement. (3) Cerebral palsy Assessment/Plan: Foot braces in place. Will work on minimizing pressure on back (4) Neurogenic bladder Assessment/Plan: On dexilant and oxybutynin (5) Depression Assessment/Plan: On bupropion and citalopram (6) HTN (hypertension) Assessment/Plan: On enalapril and propanolol (7) Anemia Assessment/Plan: Will check iron studies Hgb 8.6 with MCV 80.1 (8) Lymphedema Assessment/Plan: Chronic. Nils bandages on. She does not want the bandages, foot braces and sneakers removed because of neuropatic pain when they are handled. - Current Meds Current Meds: Current Medications Generic Name Dose Route Start Last Admin Trade Name Freq PRN Reason Stop Dose Admin Acetaminophen 650 mg 02/15/21 23:26 02/16/21 00:50 Acetaminophen 325 Mg Tablet PO 650 mg Q4HR PRN Administration Pain or Fever > 38C (100.4F) Sodium Chloride 1,000 mls @ 40 mls/hr 02/15/21 23:45 02/16/21 00:50 Normal Saline 0.9% IV 40 mls/hr .Q25H KRAIG Administration Piperacillin Sod/Tazobactam 100 mls @ 25 mls/hr 02/16/21 06:00 02/16/21 05:19 Sod 3.375 gm/ Sodium Chloride IV 25 mls/hr Q8H KRAIG Administration Vancomycin HCl 1.5 gm/ Sodium 500 mls @ 250 mls/hr 02/16/21 02:00 02/16/21 04:02 Chloride IV Infused Q12H KRAIG Infusion Sodium Chloride 10 ml 02/16/21 01:00 02/16/21 00:51 Sodium Chloride Flush 0.9% 10 Ml Syringe IVP 10 ml 0100,0900,1700 [facility] Administration - Lab Result Fish Bone Diagrams: 02/16/21 05:02 02/16/21 05:02 Subjective - Subjective Patient Reports: Other (Resting comfortably in bed. Reports mild pain in the back/sacral area.) Objective Vital Signs: Vital Signs - 24 hr 02/15/21 02/16/21 21:44 00:00 Temperature 36.7 C 36.3 C L Heart Rate 68 Heart Rate [ 65 Brachial] Respiratory 18 24 Rate Blood Pressure 119/73 Blood Pressure 116/85 H [Right Radial artery] O2 Saturation 98 100 Oxygen O2 Source Room air I&O (Last 24 Hrs): Intake and Output Totals x24h 02/14/21 02/15/21 02/16/21 23:59 23:59 23:59 Intake Total 600 Output Total 750 Balance -150 General: Alert, Mild distress (back/sacral pain) HEENT: PERRLA, EOMI Neuro: Alert, Non Focal, Oriented Times 3 Cardiovascular: Regular rate, Normal S1, Normal S2, No murmurs Respiratory: Chest non-tender, No respiratory distress, Breath sounds nml Abdomen: Normal bowel sounds, Soft, No tenderness Extremities: Other (chronic lympheedema. Legs in compression stockings. Lower extremity atrophy and contracture) Comments/Notes: Extensive gluteal/sacral decubitous ulcers - Results Results: Laboratory Results WBC 7.7 x10^3/uL (4.8-10.8) 02/16/21 05:02 RBC 3.51 10^6/uL (4.20-5.40) L 02/16/21 05:02 Hgb 8.5 g/dL (12.0-16.0) L 02/16/21 05:02 Hct 28.1 % (37.0-47.0) L 02/16/21 05:02 MCV 80.1 fL (81.0-99.0) L 02/16/21 05:02 MCH 24.2 pg (27.0-31.0) L 02/16/21 05:02 MCHC 30.2 g/dL (32.0-36.0) L 02/16/21 05:02 RDW 17.4 % (12.0-15.0) H 02/16/21 05:02 Plt Count 324 10^3/uL (130-450) 02/16/21 05:02 MPV 9.6 fL (7.9-10.8) 02/16/21 05:02 Neut # (Auto) 5.3 10^3/uL (1.5-6.6) 02/16/21 05:02 Lymph # (Auto) 1.5 10^3/uL (1.5-3.5) 02/16/21 05:02 [place] # (Auto) 0.6 10^3/uL (0.0-1.0) 02/16/21 05:02 Eos # (Auto) 0.3 10^3/uL (0.0-0.7) 02/16/21 05:02 Baso # (Auto) 0.0 10^3/uL (0.0-0.1) 02/16/21 05:02 Absolute Nucleated RBC 0.00 x10^3/uL 02/16/21 05:02 Nucleated RBC % 0.0 /100WBC 02/16/21 05:02 Sodium 133 mmol/L (135-145) L 02/16/21 05:02 Potassium 4.0 mmol/L (3.5-5.0) 02/16/21 05:02 Chloride 103 mmol/L (101-111) 02/16/21 05:02 Carbon Dioxide 23 mmol/L (21-32) 02/16/21 05:02 Anion Gap 7.0 (6-13) 02/16/21 05:02 BUN 13 mg/dL (6-20) 02/16/21 05:02 Creatinine 0.7 mg/dL (0.4-1.0) 02/16/21 05:02 Estimated GFR (MDRD) 88 (>89) L 02/16/21 05:02 Glucose 91 mg/dL (70-100) 02/16/21 05:02 Lactic Acid 1.4 mmol/L (0.5-2.2) 02/15/21 22:36 Calcium 8.2 mg/dL (8.5-10.3) L 02/16/21 05:02 Total Bilirubin 0.5 mg/dL (0.2-1.0) 02/15/21 22:36 AST 12 IU/L (10-42) 02/15/21 22:36 ALT < 10 IU/L (10-60) L 02/15/21 22:36 Alkaline Phosphatase 86 IU/L (42-121) 02/15/21 22:36 Total Protein 7.5 g/dL (6.7-8.2) 02/15/21 22:36 Albumin 3.1 g/dL (3.2-5.5) L 02/15/21 22:36 Globulin 4.4 g/dL (2.1-4.2) H 02/15/21 22:36 Albumin/Globulin Ratio 0.7 (1.0-2.2) L 02/15/21 22:36 Lipase 27 U/L (22-51) 02/15/21 22:36 Nasal Adenovirus (PCR) NOT DETECTED 02/15/21 23:40 Nasal B. parapertussis DNA (PCR) NOT DETECTED 02/15/21 23:40 Nasal Coronavir 229E PCR NOT DETECTED 02/15/21 23:40 Nasal Coronavir HKU1 PCR NOT DETECTED 02/15/21 23:40 Nasal Coronavir NL63 PCR NOT DETECTED 02/15/21 23:40 Nasal Coronavir OC43 PCR NOT DETECTED 02/15/21 23:40 Nasal Enterovir/Rhinovir PCR NOT DETECTED 02/15/21 23:40 Nasal Influenza B PCR NOT DETECTED 02/15/21 23:40 Nasal Influenza A PCR NOT DETECTED 02/15/21 23:40 Nasal Parainfluen 1 PCR NOT DETECTED 02/15/21 23:40 Nasal Parainfluen 2 PCR NOT DETECTED 02/15/21 23:40 Nasal Parainfluen 3 PCR NOT DETECTED 02/15/21 23:40 Nasal Parainfluen 4 PCR NOT DETECTED 02/15/21 23:40 Nasal RSV (PCR) NOT DETECTED 02/15/21 23:40 Nasal B.pertussis DNA PCR NOT DETECTED 02/15/21 23:40 Nasal C.pneumoniae (PCR) NOT DETECTED 02/15/21 23:40 Pool Human Metapneumo PCR NOT DETECTED 02/15/21 23:40 Nasal M.pneumoniae (PCR) NOT DETECTED 02/15/21 23:40 Nasal SARS-CoV-2 (PCR) NOT DETECTED 02/15/21 23:40 - Procedures Procedures: Procedures VENOUS CATHETERIZATION NEC (06/02/14) ABX Reporting Has patient been on IV antibiotics over the past 48 hours?: Yes
[2021-02-16] MEDS ORDERED: CRANBERRY PO SCH (09:00)
[2021-02-16] MEDS ORDERED: TOLNAFTATE 108 GM TP SCH (09:00)
[2021-02-16] MEDS ORDERED: NITROFURANTOIN MACRO 100 MG CAPSULE PO SCH (09:00)
[2021-02-16] MEDS ORDERED: HYOSCYAMINE SL 0.125 MG TABLET SL PRN (09:00)
[2021-02-16] MEDS ORDERED: SULFAMETH/TRIMETH DS 800/160 MG TABLET PO SCH (09:00)
[2021-02-16] MEDS: PROPRANOLOL 10 MG TABLET PO SCH ×3 (09:13→17:03)
[2021-02-16] MEDS: buPROPion SR 150 MG TABLET PO SCH ×2 (09:16→20:38)
[2021-02-16] MEDS: ARIPiprazole 5 MG TABLET PO SCH (09:16)
[2021-02-16] MEDS: CITALOPRAM 10 MG TABLET PO SCH (09:17)
[2021-02-16] MEDS: ENALAPRIL 5 MG TABLET PO SCH (09:17)
[2021-02-16] MEDS: PANTOPRAZOLE 40 MG TABLET PO SCH ×2 (10:06→20:38)
[2021-02-16] MEDS: SOLIFENACIN SUCCINATE 10 MG TABLET PO SCH (10:07)
[2021-02-16] MEDS: TOPIRAMATE 25 MG TABLET PO SCH ×2 (10:07→20:38)
--- NOTE | 2021-02-16 11:18 | PHARMACY PROGRESS NOTE ---
- Best Possible Medication History Admit Date and Time: 02/15/21 3399 Processed by: Pharmacy Medication History completed: Yes Patient Interview: Pt unable to participate Secondary Source(s): Physician records, Pharmacy records, Insurance records As the person ultimately responsible for medication therapy, providers are able to order a medication from an existing home medication list in [facility] via the "Reconcile Routine" prior to Confirmation of that medication by faculty support coordinator. Such practice is discouraged except when the physician, in their clinical judgment, deems that a medical need exists for a medication without regard to previous use.
[2021-02-16] MEDS: VANCOMYCIN INJ 1.5 GM in SODIUM CHLORIDE 0.9% 500 ML IV SCH (14:00)
[2021-02-16] MEDS ORDERED: SILVER SULFADIAZINE CREAM 25 GM TUBE TOP SCH (14:01)
--- NOTE | 2021-02-16 14:28 | HISTORY & PHYSICAL EXAMINATION ---
Chief Complaint - Chief Complaint Chief Complaint: sore bottom History of Present Illness - History Obtained From History obtained from: pt Exam Limitations: none - History of Present Illness HPI Comment/Other: She has had increased soreness of her buttock area. She had a visiting nurse come. She is non ambulatory. She is admitted with sloughing of her epidermis buttock area. She denies having prior procedures for skin breakdown buttock area. History - Past Medical History Cardiovascular: reports: Hypertension Respiratory: reports: Asthma, Other Neuro: reports: Cerebral palsy Endocrine/Autoimmune: reports: Other GI: reports: GERD CLOTH MEASURER: reports: None : reports: Indwelling catheter HEENT: reports: Chronic vision loss Psych: reports: Depression, Anxiety, Bipolar disorder, Post traumatic stress disorder Musculoskeletal: reports: Osteoarthritis, Other Derm: reports: Psoriasis MRSA Hx?: No - Past Surgical History General: reports: Hiatal hernia repair, EGD Ortho: reports: Other /CLOTH MEASURER: reports: section, Hysterectomy - Family & Social History Family History: Brother: Alive and Well Family History Comment/Other: She was adopted Living arrangement: At home Social History Notes: Patient does not drink alcohol. She quit smoking 20+ years ago. - Substance History Use: Uses substance without health or social issues: NONE - POLST Patient has POLST: No Meds/Allgy - Home Medications Home Medications: Ambulatory Orders Medication Instructions Recorded Confirmed Propranolol [Inderal] 20 mg PO TID 04/27/13 02/15/21 Enalapril [Vasotec] 5 mg ORAL DAILY 05/14/14 02/15/21 Nystatin Cream [Mycostatin Cream] 1 applic TOP BID PRN #60 g 12/30/15 02/15/21 Citalopram Hydrobromide [Celexa] 10 mg PO DAILY 08/22/16 02/15/21 Oxybutynin Chloride [Ditropan Xl] 10 mg PO DAILY 01/23/17 02/15/21 Quetiapine Fumarate [Seroquel Xr] 300 mg PO DAILY PM 01/23/17 02/15/21 oxyCODONE/ACET 5/325 [Percocet 5 1 tab PO BID MDD 2 03/16/17 02/16/21 mg/325 mg] Zolpidem Tartrate [Ambien] 10 mg PO QPM PRN 06/05/17 02/15/21 ARIPiprazole [Abilify] 20 mg PO DAILY 08/28/17 02/15/21 Hydrocortisone 1% Oint 1 gm TP TID PRN 08/28/17 02/15/21 [Hydrocortisone] hydrOXYzine pamoate [Hydroxyzine 25 mg PO DAILY PRN 07/09/18 02/16/21 Pamoate] Loperamide [Imodium] 2 mg PO TID PRN 04/29/19 02/15/21 Cod Liver Oil/Zinc Oxide [Desitin] 1 applic TOP TID 14 Days #1 tube 09/03/19 02/15/21 Cranberry 1 tab PO DAILY 06/22/20 02/15/21 Ondansetron Odt [Zofran] 4 mg TL Q6H PRN #10 tablet 07/04/20 02/15/21 Ketoconazole/Hydrocortisone [Pheyo 1 gm TP DAILY #30 cream..g. 07/15/20 02/15/21 2.5%-2% Cream] Albuterol Sulf [Ventolin Hfa 2 puffs INH Q4HR PRN 02/16/21 02/16/21 Inhaler] Dexlansoprazole [Dexilant] 30 mg PO DAILY 02/16/21 02/16/21 Famotidine [Pepcid] 20 mg PO DAILY 02/16/21 02/16/21 Ferrous Sulfate 325 mg PO BIDWM 02/16/21 02/16/21 Hyoscyamine [Levsin] 0.125 mg SL BID PRN 02/16/21 02/16/21 Loratadine [Claritin] 10 mg PO DAILY 02/16/21 02/16/21 Meloxicam [Mobic] 15 mg PO DAILY 02/16/21 02/16/21 buPROPion [Wellbutrin Xl] 150 mg PO DAILY 02/16/21 02/16/21 - Allergies Allergies/Adverse Reactions: Allergies Allergy/AdvReac Type Severity Reaction Status Date / Time phenazopyridine Allergy Unknown Verified 02/15/21 21:54 [From Pyridium] paroxetine HCl * [From Paxil] AdvReac Intermediate Emesis Verified 02/15/21 21:54 codeine [Codeine] AdvReac Pass Out Verified 02/15/21 21:54 Review of Systems - Other Findings Other Findings: 10 pt ros as above otherwise unremarkable Exam - Vital Signs Reviewed Vital Signs: Yes Vital Signs: Vital Signs x48h Temp Pulse Resp BP Pulse Ox 02/16/21 08:00 36.9 C 80 20 115/71 97 - Physical Exam General Appearance: positive: No acute distress, Alert Eyes Bilateral: positive: PERRL, EOMI Neck: positive: No JVD Respiratory: positive: No respiratory distress Abdomen: positive: Non-tender, No distention Skin: positive: Other (epidermal sloughing buttock area without full thickness skin loss or ulceration, abscess, eschar) Neurologic/Psychiatric: positive: Oriented x3 Conclusion/Plan - Problem List (1) Cellulitis of buttock Conclusion/Plan: agree with present care. no full thickness skin loss or necrotic tissue to debride or abscess. She has had superficial sloughing epidermis similar to a first degree / superficial second degree burn. agree with present care. I will order silvadene to be applied to area twice daily - Lab Results Fish Bones: 02/16/21 05:02 02/16/21 05:02
--- NOTE | 2021-02-16 14:41 | PHARMACY PROGRESS NOTE ---
- Therapy Status Vancomycin regimen day #: 2 Therapy status: Awaiting steady state Basis for treatment: Empirical Treatment indication: CELLULITIS Trough goal: 15-20 Concurrent antibiotics: ZOSYN - BRYN Risk Risk level for Acute Kidney Injury: Moderate Acute Kidney Injury risk factors: Piperacillin/Tozobactam, Goal trough >15 - Monitoring and Recommendation Clinical response to treatment: I&O Previous 24 hours 02/14/21 02/15/21 02/16/21 23:59 23:59 23:59 Intake Total 1586.667 Output Total 1300 Balance 286.667 Lab Results 02/16/21 02/15/21 05:02 22:36 BUN 13 13 Creatinine 0.7 0.8 Estimated GFR (MDRD) 88 L 76 L Cultures 02/16/21 05:30 Buttock - Right Wound Culture - Preliminary Monitoring plan: Daily serum creatinine, Suggest ongoing fluid replacement Areas for additional monitoring: IV to PO when appropriate, Therapy de- escalation based on culture results, Acute Kidney Injury
[2021-02-16] MEDS ORDERED: PIPERACILLIN/TAZOBACTAM 3.375 GM in SODIUM CHLORIDE 0.9% MINIBAG 100 ML IV ONE ×2 (17:00→23:45)
[2021-02-16] MEDS: PIPERACILLIN/TAZOBACTAM 3.375 GM in SODIUM CHLORIDE 0.9% MINIBAG 100 ML IV SCH (17:04)
[2021-02-16] MEDS: oxyCODONE 5 MG TABLET PO PRN (18:31)
[2021-02-16] MEDS: SILVER SULFADIAZINE CREAM 25 GM TUBE TOP SCH (19:21)
[2021-02-16] MEDS: QUEtiapine 100 MG TABLET PO SCH (20:38)
[2021-02-16] MEDS: ZOLPIDEM 5 MG TABLET PO PRN (20:47)
[2021-02-17] MEDS: PIPERACILLIN/TAZOBACTAM 3.375 GM in SODIUM CHLORIDE 0.9% MINIBAG 100 ML IV SCH ×3 (00:04→14:46)
[2021-02-17] MEDS: SODIUM CHLORIDE FLUSH 0.9% 10 ML SYRINGE IVP SCH ×3 (00:04→16:40)
[2021-02-17] MEDS: ACETAMINOPHEN 325 MG TABLET PO PRN (00:24)
[2021-02-17] MEDS: VANCOMYCIN INJ 1.5 GM in SODIUM CHLORIDE 0.9% 500 ML IV SCH ×2 (01:46→14:46)
[2021-02-17 05:16] LABS: % IRON SATURATION 6 % (20-50); IRON 13 ug/dL (28-170); TOTAL IRON BINDING CAPACITY 230 ug/dL (250-450); TRANSFERRIN 164 mg/dL (192-382)
[2021-02-17] MEDS: SODIUM CHLORIDE 0.9% 1,000 ML IV SCH (05:34)
[2021-02-17 08:02] LABS: CALCIUM 8.2 mg/dL (8.5-10.3); CREATININE 0.7 mg/dL (0.4-1.0); POTASSIUM 4.2 mmol/L (3.5-5.0)
[2021-02-17 08:03] LABS: BASOPHILS % (AUTO) 0.4 %; EOSINOPHILS # (AUTO) 0.2 10^3/uL (0.0-0.7); EOSINOPHILS % (AUTO) 4.3 %; HCT - HEMATOCRIT 28.9 % (37.0-47.0); HGB - HEMOGLOBIN 8.6 g/dL (12.0-16.0); LYMPHOCYTES % (AUTO) 18.3 %; MEAN CORPUSCULAR HEMOGLOBIN 24.1 pg (27.0-31.0); MEAN CORPUSCULAR HGB CONC 29.8 g/dL (32.0-36.0); MONOCYTES # (AUTO) 0.4 10^3/uL (0.0-1.0); MONOCYTES % (AUTO) 7.9 %; NEUTROPHILS # (AUTO) 3.7 10^3/uL (1.5-6.6); NEUTROPHILS % (AUTO) 68.9 %; PLT - PLATELET COUNT 296 10^3/uL (130-450); RED BLOOD COUNT 3.57 10^6/uL (4.20-5.40); RED CELL DISTRIBUTION WIDTH 17.5 % (12.0-15.0); WHITE BLOOD COUNT 5.4 x10^3/uL (4.8-10.8)
[2021-02-17] MEDS: PROPRANOLOL 10 MG TABLET PO SCH ×3 (08:55→16:40)
[2021-02-17] MEDS: ARIPiprazole 5 MG TABLET PO SCH (08:56)
[2021-02-17] MEDS: TOPIRAMATE 25 MG TABLET PO SCH ×2 (08:58→20:33)
[2021-02-17] MEDS: ENALAPRIL 5 MG TABLET PO SCH (08:58)
[2021-02-17] MEDS: PANTOPRAZOLE 40 MG TABLET PO SCH ×2 (08:58→20:33)
[2021-02-17] MEDS: buPROPion SR 150 MG TABLET PO SCH ×2 (08:58→20:33)
[2021-02-17] MEDS: CITALOPRAM 10 MG TABLET PO SCH (08:58)
[2021-02-17] MEDS: polyethylene glycoL 3350 17 GM PACKET PO SCH (09:04)
[2021-02-17] MEDS: oxyCODONE 5 MG TABLET PO PRN ×2 (10:04→20:34)
[2021-02-17] MEDS: SILVER SULFADIAZINE CREAM 25 GM TUBE TOP SCH ×2 (10:05→20:34)
[2021-02-17] MEDS: SOLIFENACIN SUCCINATE 10 MG TABLET PO SCH (10:41)
--- NOTE | 2021-02-17 14:09 | PROVIDER PROGRESS NOTE ---
Subjective - Prog Note Date Prog Note Date: 02/17/21 - Subjective Pt reports feeling: Improved (feeling better) Objective - Vital Signs/Intake & Output Reviewed Vital Signs: Yes Vital Signs: Vital Signs x48h Temp Pulse Resp BP 02/17/21 13:49 36.3 C L 79 20 124/65 02/17/21 08:25 36.9 C 76 16 131/86 H Intake & Output: Intake & Output 02/14/21 02/15/21 02/16/21 02/17/21 23:59 23:59 23:59 23:59 Intake Total 2826.667 2274.000 Output Total 2550 1150 Balance 907.346 6473.000 - Objective General Appearance: positive: Alert Eyes Bilateral: positive: PERRL, EOMI Skin: positive: Other (by nursing report looks improved) Neurologic/Psychiatric: positive: Oriented x3 - Lab Results Fish Bones: 02/17/21 04:25 02/17/21 04:25 Other Labs: Lab Results x24hrs 02/17/21 02/17/21 02/17/21 Range/Units 04:25 04:25 04:25 WBC 5.4 (4.8-10.8) x10^3/uL RBC 3.57 L (4.20-5.40) 10^6/uL Hgb 8.6 L (12.0-16.0) g/dL Hct 28.9 L (37.0-47.0) % MCV 81.0 (81.0-99.0) fL MCH 24.1 L (27.0-31.0) pg MCHC 29.8 L (32.0-36.0) g/dL RDW 17.5 H (12.0-15.0) % Plt Count 296 (130-450) 10^3/uL MPV 10.0 (7.9-10.8) fL Neut # (Auto) 3.7 (1.5-6.6) 10^3/uL Lymph # (Auto) 1.0 L (1.5-3.5) 10^3/uL [place] # (Auto) 0.4 (0.0-1.0) 10^3/uL Eos # (Auto) 0.2 (0.0-0.7) 10^3/uL Baso # (Auto) 0.0 (0.0-0.1) 10^3/uL Absolute Nucleated RBC 0.00 x10^3/uL Nucleated RBC % 0.0 /100WBC Sodium 137 (135-145) mmol/L Potassium 4.2 (3.5-5.0) mmol/L Chloride 107 (101-111) mmol/L Carbon Dioxide 24 (21-32) mmol/L Anion Gap 6.0 (6-13) BUN 11 (6-20) mg/dL Creatinine 0.7 (0.4-1.0) mg/dL Estimated GFR (MDRD) 88 L (>89) Glucose 91 (70-100) mg/dL Calcium 8.2 L (8.5-10.3) mg/dL Iron 13 L (28-170) ug/dL TIBC 230 L (250-450) ug/dL % Saturation 6 L (20-50) % Transferrin 164 L (192-382) mg/dL Assessment/Plan - Problem List (1) Cellulitis of buttock Impression: improving
--- NOTE | 2021-02-17 14:15 | PROVIDER PROGRESS NOTE ---
Assessment/Plan - Problem List (1) Sacral decubitus ulcer Assessment/Plan: This was evaluated by the general surgeon Dr. Michael Asher. who advised application of silvadene. This is being done BID No surgical debridement is indicated. The area need to be keep dry and clean The patient need to be turned often to keep pressure off area The patient needs more care than can be provided by her home health care providers in the alocated 2 hrs of care bid. Case management is helping to facilitate the process of placement (2) Cellulitis of buttock Assessment/Plan: Vancomycin and Zosyn were discontinued As the area is more consistent with a burn from the patient sitting in (caustic) urine for too long ans less with an active skin infection (3) Cerebral palsy Assessment/Plan: Foot braces in place. Will work on minimizing pressure on back (4) Neurogenic bladder Assessment/Plan: On dexilant and oxybutynin Suprapubic catheter was changed in the ED prior to admission (5) Depression Assessment/Plan: On bupropion and citalopram (6) HTN (hypertension) Assessment/Plan: On enalapril and propanolol (7) Anemia Assessment/Plan: Hemoglobin 8.6 Iron level 13 with TIBC 230 Ferrous gluconate 324mg po daily with meals ordered (8) Lymphedema Assessment/Plan: Nils bandages changed today 02/17/21 - Current Meds Current Meds: Current Medications Generic Name Dose Route Start Last Admin Trade Name Freq PRN Reason Stop Dose Admin Acetaminophen 650 mg 02/15/21 23:26 02/17/21 00:24 Acetaminophen 325 Mg Tablet PO 650 mg Q4HR PRN Administration Pain or Fever > 38C (100.4F) Aripiprazole 20 mg 02/16/21 09:00 02/17/21 08:56 Aripiprazole 5 Mg Tablet PO 20 mg DAILY KRAIG Administration Bupropion HCl 150 mg 02/16/21 09:00 02/17/21 08:58 Bupropion Sr 150 Mg Tablet PO 150 mg BID KRAIG Administration Citalopram Hydrobromide 10 mg 02/16/21 09:00 02/17/21 08:58 Citalopram 10 Mg Tablet PO 10 mg DAILY KRAIG Administration Enalapril Maleate 5 mg 02/16/21 09:00 02/17/21 08:58 Enalapril 5 Mg Tablet PO 5 mg DAILY KRAIG Administration Hydroxyzine Pamoate 0 mg 02/15/21 23:34 02/17/21 00:24 Hydroxyzine Pamoate 25 Mg Capsule PO 25 mg DAILY PRN Administration ANXIETY Sodium Chloride 1,000 mls @ 40 mls/hr 02/15/21 23:45 02/17/21 10:35 Normal Saline 0.9% IV 0 mls/hr .Q25H KRAIG Infusion Vancomycin HCl 1.5 gm/ Sodium 500 mls @ 250 mls/hr 02/16/21 14:00 02/17/21 03:57 Chloride IV Infused Q12H KRAIG Infusion Piperacillin Sod/Tazobactam 100 mls @ 200 mls/hr 02/16/21 18:00 02/17/21 06:13 Sod 3.375 gm/ Sodium Chloride IV Infused Q6H KRAIG Infusion Oxycodone HCl 5 mg 02/16/21 01:57 02/17/21 10:04 Oxycodone 5 Mg Tablet PO 5 mg Q8H PRN Administration PAIN Pantoprazole Sodium 40 mg 02/16/21 09:00 02/17/21 08:58 Pantoprazole 40 Mg Tablet PO 40 mg BID KRAIG Administration Polyethylene Glycol 17 gm 02/17/21 09:00 02/17/21 09:04 Polyethylene Glycol 3350 17 Gm Packet PO Not Given DAILY KRAIG Propranolol HCl 20 mg 02/16/21 08:00 02/17/21 12:58 Propranolol 10 Mg Tablet PO 20 mg TIDWM KRAIG Administration Quetiapine Fumarate 300 mg 02/16/21 21:00 02/16/21 20:38 Quetiapine 100 Mg Tablet PO 300 mg QPM KRAIG Administration Silver Sulfadiazine 1 applic 02/16/21 14:35 02/17/21 10:05 Silver Sulfadiazine Cream 25 Gm Tube TOP 1 applic BID KRAIG Administration Sodium Chloride 10 ml 02/16/21 01:00 02/17/21 09:03 Sodium Chloride Flush 0.9% 10 Ml Syringe IVP Not Given 0100,0900,1700 KRAIG Solifenacin 10 mg 02/16/21 09:00 02/17/21 10:41 Solifenacin Succinate 10 Mg Tablet PO 10 mg DAILY KRAIG Administration Topiramate 25 mg 02/16/21 09:00 02/17/21 08:58 Topiramate 25 Mg Tablet PO 25 mg BID KRAIG Administration Zolpidem Tartrate 10 mg 02/16/21 00:48 02/16/21 20:47 Zolpidem 5 Mg Tablet PO 10 mg QPM PRN Administration Insomnia - Lab Result Fish Bone Diagrams: 02/17/21 04:25 02/17/21 04:25 Subjective - Subjective Patient Reports: Other (Resting comfortably in bed. Continues to reports mild pain in the back/sacral area. An ulcer was noted on her right heel when the nils bandages were changed.) Objective Vital Signs: Vital Signs - 24 hr 02/16/21 02/16/21 02/16/21 15:45 22:56 23:58 Temperature 36.7 C 37.1 C 37.1 C Heart Rate [ 78 75 76 Brachial] Respiratory 20 19 20 Rate Blood Pressure 101/60 105/68 97/75 [Right Radial artery] O2 Saturation 95 97 95 02/17/21 02/17/21 02/17/21 04:26 08:25 13:49 Temperature 37.1 C 36.9 C 36.3 C L Heart Rate [ 71 76 79 Brachial] Respiratory 20 16 20 Rate Blood Pressure 117/74 131/86 H 124/65 [Right Radial artery] O2 Saturation 94 Oxygen O2 Source Room air I&O (Last 24 Hrs): Intake and Output Totals x24h 02/15/21 02/16/21 02/17/21 23:59 23:59 23:59 Intake Total 2826.667 2274.000 Output Total 2550 1150 Balance 671.056 0428.000 General: Alert, Mild distress (back/sacral pain) HEENT: PERRLA, EOMI Neuro: Alert, Non Focal, Oriented Times 3 Cardiovascular: Regular rate, Normal S1, Normal S2, No murmurs Respiratory: Chest non-tender, No respiratory distress, Breath sounds nml Abdomen: Normal bowel sounds, Soft, No tenderness Extremities: No clubbing, No cyanosis, Other (dry scaly skin. right heel decubitus ulcer. Legs in compression stockings. Lower extremity atrophy and contracture) Skin: No rashes - Results Results: Laboratory Results WBC 5.4 x10^3/uL (4.8-10.8) 02/17/21 04:25 RBC 3.57 10^6/uL (4.20-5.40) L 02/17/21 04:25 Hgb 8.6 g/dL (12.0-16.0) L 02/17/21 04:25 Hct 28.9 % (37.0-47.0) L 02/17/21 04:25 MCV 81.0 fL (81.0-99.0) 02/17/21 04:25 MCH 24.1 pg (27.0-31.0) L 02/17/21 04:25 MCHC 29.8 g/dL (32.0-36.0) L 02/17/21 04:25 RDW 17.5 % (12.0-15.0) H 02/17/21 04:25 Plt Count 296 10^3/uL (130-450) 02/17/21 04:25 MPV 10.0 fL (7.9-10.8) 02/17/21 04:25 Neut # (Auto) 3.7 10^3/uL (1.5-6.6) 02/17/21 04:25 Lymph # (Auto) 1.0 10^3/uL (1.5-3.5) L 02/17/21 04:[address] [place] # (Auto) 0.4 10^3/uL (0.0-1.0) 02/17/21 04:25 Eos # (Auto) 0.2 10^3/uL (0.0-0.7) 02/17/21 04:25 Baso # (Auto) 0.0 10^3/uL (0.0-0.1) 02/17/21 04:25 Absolute Nucleated RBC 0.00 x10^3/uL 02/17/21 04:25 Nucleated RBC % 0.0 /100WBC 02/17/21 04:25 Sodium 137 mmol/L (135-145) 02/17/21 04:25 Potassium 4.2 mmol/L (3.5-5.0) 02/17/21 04:25 Chloride 107 mmol/L (101-111) 02/17/21 04:25 Carbon Dioxide 24 mmol/L (21-32) 02/17/21 04:25 Anion Gap 6.0 (6-13) 02/17/21 04:25 BUN 11 mg/dL (6-20) 02/17/21 04:25 Creatinine 0.7 mg/dL (0.4-1.0) 02/17/21 04:25 Estimated GFR (MDRD) 88 (>89) L 02/17/21 04:25 Glucose 91 mg/dL (70-100) 02/17/21 04:25 Lactic Acid 1.4 mmol/L (0.5-2.2) 02/15/21 22:36 Calcium 8.2 mg/dL (8.5-10.3) L 02/17/21 04:25 Iron 13 ug/dL (28-170) L 02/17/21 04:25 TIBC 230 ug/dL (250-450) L 02/17/21 04:25 % Saturation 6 % (20-50) L 02/17/21 04:25 Transferrin 164 mg/dL (192-382) L 02/17/21 04:25 Total Bilirubin 0.5 mg/dL (0.2-1.0) 02/15/21 22:36 AST 12 IU/L (10-42) 02/15/21 22:36 ALT < 10 IU/L (10-60) L 02/15/21 22:36 Alkaline Phosphatase 86 IU/L (42-121) 02/15/21 22:36 Total Protein 7.5 g/dL (6.7-8.2) 02/15/21 22:36 Albumin 3.1 g/dL (3.2-5.5) L 02/15/21 22:36 Globulin 4.4 g/dL (2.1-4.2) H 02/15/21 22:36 Albumin/Globulin Ratio 0.7 (1.0-2.2) L 02/15/21 22:36 Lipase 27 U/L (22-51) 02/15/21 22:36 Nasal Adenovirus (PCR) NOT DETECTED 02/15/21 23:40 Nasal B. parapertussis DNA (PCR) NOT DETECTED 02/15/21 23:40 Nasal Coronavir 229E PCR NOT DETECTED 02/15/21 23:40 Nasal Coronavir HKU1 PCR NOT DETECTED 02/15/21 23:40 Nasal Coronavir NL63 PCR NOT DETECTED 02/15/21 23:40 Nasal Coronavir OC43 PCR NOT DETECTED 02/15/21 23:40 Nasal Enterovir/Rhinovir PCR NOT DETECTED 02/15/21 23:40 Nasal Influenza B PCR NOT DETECTED 02/15/21 23:40 Nasal Influenza A PCR NOT DETECTED 02/15/21 23:40 Nasal Parainfluen 1 PCR NOT DETECTED 02/15/21 23:40 Nasal Parainfluen 2 PCR NOT DETECTED 02/15/21 23:40 Nasal Parainfluen 3 PCR NOT DETECTED 02/15/21 23:40 Nasal Parainfluen 4 PCR NOT DETECTED 02/15/21 23:40 Nasal RSV (PCR) NOT DETECTED 02/15/21 23:40 Nasal B.pertussis DNA PCR NOT DETECTED 02/15/21 23:40 Nasal C.pneumoniae (PCR) NOT DETECTED 02/15/21 23:40 Pool Human Metapneumo PCR NOT DETECTED 02/15/21 23:40 Nasal M.pneumoniae (PCR) NOT DETECTED 02/15/21 23:40 Nasal SARS-CoV-2 (PCR) NOT DETECTED 02/15/21 23:40 - Procedures Procedures: Procedures VENOUS CATHETERIZATION NEC (06/02/14) ABX Reporting Has patient been on IV antibiotics over the past 48 hours?: Yes
[2021-02-17] MEDS: FERROUS GLUCONATE 324 MG TABLET PO SCH (16:40)
[2021-02-17] MEDS: ZOLPIDEM 5 MG TABLET PO PRN (20:33)
[2021-02-17] MEDS: QUEtiapine 100 MG TABLET PO SCH (20:33)
[2021-02-18] MEDS: ONDANSETRON ODT 4 MG TABLET TL PRN (01:32)
[2021-02-18] MEDS: SODIUM CHLORIDE 0.9% 1,000 ML IV SCH (01:33)
[2021-02-18] MEDS: SODIUM CHLORIDE FLUSH 0.9% 10 ML SYRINGE IVP SCH ×3 (01:34→16:29)
[2021-02-18] MEDS: ACETAMINOPHEN 325 MG TABLET PO PRN ×2 (03:29→19:57)
[2021-02-18] MEDS: oxyCODONE 5 MG TABLET PO PRN ×2 (03:30→16:29)
[2021-02-18 05:41] LABS: BASOPHILS % (AUTO) 0.7 %; EOSINOPHILS # (AUTO) 0.3 10^3/uL (0.0-0.7); EOSINOPHILS % (AUTO) 5.5 %; HCT - HEMATOCRIT 29.8 % (37.0-47.0); HGB - HEMOGLOBIN 8.9 g/dL (12.0-16.0); LYMPHOCYTES # (AUTO) 1.4 10^3/uL (1.5-3.5); LYMPHOCYTES % (AUTO) 24.6 %; MEAN CORPUSCULAR HEMOGLOBIN 24.1 pg (27.0-31.0); MEAN CORPUSCULAR HGB CONC 29.9 g/dL (32.0-36.0); MEAN CORPUSCULAR VOLUME 80.5 fL (81.0-99.0); MEAN PLATELET VOLUME 9.9 fL (7.9-10.8); MONOCYTES # (AUTO) 0.5 10^3/uL (0.0-1.0); MONOCYTES % (AUTO) 9.9 %; NEUTROPHILS # (AUTO) 3.2 10^3/uL (1.5-6.6); NEUTROPHILS % (AUTO) 58.9 %; PLT - PLATELET COUNT 333 10^3/uL (130-450); RED CELL DISTRIBUTION WIDTH 17.6 % (12.0-15.0); WHITE BLOOD COUNT 5.5 x10^3/uL (4.8-10.8)
[2021-02-18 05:49] LABS: CALCIUM 8.3 mg/dL (8.5-10.3); CREATININE 0.6 mg/dL (0.4-1.0); POTASSIUM 3.6 mmol/L (3.5-5.0)
[2021-02-18] MEDS: PROPRANOLOL 10 MG TABLET PO SCH ×3 (08:55→16:29)
[2021-02-18] MEDS: FERROUS GLUCONATE 324 MG TABLET PO SCH (08:55)
[2021-02-18] MEDS: ARIPiprazole 5 MG TABLET PO SCH (09:01)
[2021-02-18] MEDS: ENALAPRIL 5 MG TABLET PO SCH (09:02)
[2021-02-18] MEDS: CITALOPRAM 10 MG TABLET PO SCH (09:02)
[2021-02-18] MEDS: PANTOPRAZOLE 40 MG TABLET PO SCH ×2 (09:02→20:03)
[2021-02-18] MEDS: TOPIRAMATE 25 MG TABLET PO SCH ×2 (09:02→20:03)
[2021-02-18] MEDS: buPROPion SR 150 MG TABLET PO SCH ×2 (09:02→20:03)
[2021-02-18] MEDS: SOLIFENACIN SUCCINATE 10 MG TABLET PO SCH (10:22)
[2021-02-18] MEDS: polyethylene glycoL 3350 17 GM PACKET PO SCH (10:22)
[2021-02-18] MEDS: SILVER SULFADIAZINE CREAM 25 GM TUBE TOP SCH ×2 (10:23→20:04)
--- NOTE | 2021-02-18 10:26 | PROVIDER PROGRESS NOTE ---
Assessment/Plan - Problem List (1) Sacral decubitus ulcer Assessment/Plan: This was evaluated by the general surgeon Dr. Michael Asher. who advised application of silvadene. This is being done BID No surgical debridement is indicated. The area need to be keep dry and clean The patient need to be turned often to keep pressure off area The patient needs more care than can be provided by her home health care providers in the alocated 2 hrs of care bid. Case management is helping to facilitate the process of placement Discharge to a [facility] facility on Thursday02/20/21 (2) Cellulitis of buttock Assessment/Plan: Vancomycin and Zosyn were discontinued As the area is more consistent with a burn from the patient sitting in (caustic) urine for too long and less with an active skin infection (3) Cerebral palsy Assessment/Plan: Foot braces in place. Will work on minimizing pressure on back (4) Neurogenic bladder Assessment/Plan: On dexilant and oxybutynin Suprapubic catheter was changed in the ED prior to admission (5) Depression Assessment/Plan: On bupropion and citalopram (6) HTN (hypertension) Assessment/Plan: On enalapril and propanolol (7) Anemia Assessment/Plan: Hemoglobin 8.9 Iron level 13 with TIBC 230 Ferrous gluconate 324mg po daily with meals ordered (8) Lymphedema Assessment/Plan: Nils bandages changed today 02/17/21 - Current Meds Current Meds: Current Medications Generic Name Dose Route Start Last Admin Trade Name Freq PRN Reason Stop Dose Admin Acetaminophen 650 mg 02/15/21 23:26 02/18/21 03:29 Acetaminophen 325 Mg Tablet PO 650 mg Q4HR PRN Administration Pain or Fever > 38C (100.4F) Aripiprazole 20 mg 02/16/21 09:00 02/18/21 09:01 Aripiprazole 5 Mg Tablet PO 20 mg DAILY KRAIG Administration Bupropion HCl 150 mg 02/16/21 09:00 02/18/21 09:02 Bupropion Sr 150 Mg Tablet PO 150 mg BID KRAIG Administration Citalopram Hydrobromide 10 mg 02/16/21 09:00 02/18/21 09:02 Citalopram 10 Mg Tablet PO 10 mg DAILY KRAIG Administration Enalapril Maleate 5 mg 02/16/21 09:00 02/18/21 09:02 Enalapril 5 Mg Tablet PO 5 mg DAILY KRAIG Administration Ferrous Gluconate 324 mg 02/17/21 15:00 02/18/21 08:55 Ferrous Gluconate 324 Mg Tablet PO 324 mg DAILYWM KRAIG Administration Hydroxyzine Pamoate 0 mg 02/15/21 23:34 02/17/21 00:24 Hydroxyzine Pamoate 25 Mg Capsule PO 25 mg DAILY PRN Administration ANXIETY Sodium Chloride 1,000 mls @ 40 mls/hr 02/15/21 23:45 02/18/21 01:33 Normal Saline 0.9% IV Not Given .Q25H KRAIG Ondansetron HCl 4 mg 02/18/21 01:21 02/18/21 01:32 Ondansetron Odt 4 Mg Tablet TL 4 mg Q4HR PRN Administration Nausea / Vomiting Oxycodone HCl 5 mg 02/16/21 01:57 02/18/21 03:30 Oxycodone 5 Mg Tablet PO 5 mg Q8H PRN Administration PAIN Pantoprazole Sodium 40 mg 02/16/21 09:00 02/18/21 09:02 Pantoprazole 40 Mg Tablet PO 40 mg BID KRAIG Administration Polyethylene Glycol 17 gm 02/17/21 09:00 02/18/21 10:22 Polyethylene Glycol 3350 17 Gm Packet PO Not Given DAILY KRAIG Propranolol HCl 20 mg 02/16/21 08:00 02/18/21 08:55 Propranolol 10 Mg Tablet PO 20 mg TIDWM KRAIG Administration Quetiapine Fumarate 300 mg 02/16/21 21:00 02/17/21 20:33 Quetiapine 100 Mg Tablet PO 300 mg QPM KRAIG Administration Silver Sulfadiazine 1 applic 02/16/21 14:35 02/18/21 10:23 Silver Sulfadiazine Cream 25 Gm Tube TOP 1 applic BID KRAIG Administration Sodium Chloride 10 ml 02/16/21 01:00 02/18/21 09:02 Sodium Chloride Flush 0.9% 10 Ml Syringe IVP Not Given 0100,0900,1700 KRAIG Solifenacin 10 mg 02/16/21 09:00 02/18/21 10:22 Solifenacin Succinate 10 Mg Tablet PO 10 mg DAILY KRAIG Administration Topiramate 25 mg 02/16/21 09:00 02/18/21 09:02 Topiramate 25 Mg Tablet PO 25 mg BID KRAIG Administration Zolpidem Tartrate 10 mg 02/16/21 00:48 02/17/21 20:33 Zolpidem 5 Mg Tablet PO 10 mg QPM PRN Administration Insomnia - Lab Result Fish Bone Diagrams: 02/18/21 05:00 02/18/21 05:00 - Additional Planning My Orders: My Active Orders 02/17/21 15:00 Ferrous Gluconate [Fergon] 324 mg PO DAILYWM 02/18/21 10:23 Wheat Dextrin [Benefiber] 1 packet PO DAILY PRN 02/18/21 10:30 Meloxicam [Mobic] 15 mg PO DAILY 02/19/21 05:00 BMP - BASIC METABOLIC PANEL [CHEM] DAILYLAB CBC - COMP BLD CT W/AUTO DIFF [HEME] DAILYLAB 02/20/21 05:00 BMP - BASIC METABOLIC PANEL [CHEM] DAILYLAB CBC - COMP BLD CT W/AUTO DIFF [HEME] DAILYLAB Subjective - Subjective Patient Reports: Other (Patient was resting comfortably in bed at time of visit. She denied any complaints.) Objective Vital Signs: Vital Signs - 24 hr 02/17/21 02/17/21 02/18/21 13:49 16:05 01:00 Temperature 36.3 C L 36.7 C 37.3 C Heart Rate [ 79 69 69 Brachial] Respiratory 20 20 19 Rate Blood Pressure 124/65 104/70 114/74 [Right Radial artery] O2 Saturation 94 92 02/18/21 06:00 Temperature 36.8 C Heart Rate [ 70 Brachial] Respiratory 20 Rate Blood Pressure 110/70 [Right Radial artery] O2 Saturation 95 Oxygen O2 Source Room air I&O (Last 24 Hrs): Intake and Output Totals x24h 02/16/21 02/17/21 02/18/21 23:59 23:59 23:59 Intake Total 2826.667 2864.000 120 Output Total 2550 2450 250 Balance 276.667 414.000 -130 Comments/Notes: General: Alert, Mild distress (back/sacral pain) HEENT: PERRLA, EOMI Neuro: Alert, Non Focal, Oriented Times 3 Cardiovascular: Regular rate, Normal S1, Normal S2, No murmurs Respiratory: Chest non-tender, No respiratory distress, Breath sounds nml Abdomen: Normal bowel sounds, Soft, No tenderness Extremities: No clubbing, No cyanosis, Other (dry scaly skin. right heel decubitus ulcer. Legs in compression stockings. Lower extremity atrophy and contracture) Skin: No rashes - Results Results: Laboratory Results WBC 5.5 x10^3/uL (4.8-10.8) 02/18/21 05:00 RBC 3.70 10^6/uL (4.20-5.40) L 02/18/21 05:00 Hgb 8.9 g/dL (12.0-16.0) L 02/18/21 05:00 Hct 29.8 % (37.0-47.0) L 02/18/21 05:00 MCV 80.5 fL (81.0-99.0) L 02/18/21 05:00 MCH 24.1 pg (27.0-31.0) L 02/18/21 05:00 MCHC 29.9 g/dL (32.0-36.0) L 02/18/21 05:00 RDW 17.6 % (12.0-15.0) H 02/18/21 05:00 Plt Count 333 10^3/uL (130-450) 02/18/21 05:00 MPV 9.9 fL (7.9-10.8) 02/18/21 05:00 Neut # (Auto) 3.2 10^3/uL (1.5-6.6) 02/18/21 05:00 Lymph # (Auto) 1.4 10^3/uL (1.5-3.5) L 02/18/21 05:00 [place] # (Auto) 0.5 10^3/uL (0.0-1.0) 02/18/21 05:00 Eos # (Auto) 0.3 10^3/uL (0.0-0.7) 02/18/21 05:00 Baso # (Auto) 0.0 10^3/uL (0.0-0.1) 02/18/21 05:00 Absolute Nucleated RBC 0.00 x10^3/uL 02/18/21 05:00 Nucleated RBC % 0.0 /100WBC 02/18/21 05:00 Sodium 135 mmol/L (135-145) 02/18/21 05:00 Potassium 3.6 mmol/L (3.5-5.0) 02/18/21 05:00 Chloride 103 mmol/L (101-111) 02/18/21 05:00 Carbon Dioxide 22 mmol/L (21-32) 02/18/21 05:00 Anion Gap 10.0 (6-13) 02/18/21 05:00 BUN 7 mg/dL (6-20) 02/18/21 05:00 Creatinine 0.6 mg/dL (0.4-1.0) 02/18/21 05:00 Estimated GFR (MDRD) 105 (>89) 02/18/21 05:00 Glucose 89 mg/dL (70-100) 02/18/21 05:00 Lactic Acid 1.4 mmol/L (0.5-2.2) 02/15/21 22:36 Calcium 8.3 mg/dL (8.5-10.3) L 02/18/21 05:00 Iron 13 ug/dL (28-170) L 02/17/21 04:25 TIBC 230 ug/dL (250-450) L 02/17/21 04:25 % Saturation 6 % (20-50) L 02/17/21 04:25 Transferrin 164 mg/dL (192-382) L 02/17/21 04:25 Total Bilirubin 0.5 mg/dL (0.2-1.0) 02/15/21 22:36 AST 12 IU/L (10-42) 02/15/21 22:36 ALT < 10 IU/L (10-60) L 02/15/21 22:36 Alkaline Phosphatase 86 IU/L (42-121) 02/15/21 22:36 Total Protein 7.5 g/dL (6.7-8.2) 02/15/21 22:36 Albumin 3.1 g/dL (3.2-5.5) L 02/15/21 22:36 Globulin 4.4 g/dL (2.1-4.2) H 02/15/21 22:36 Albumin/Globulin Ratio 0.7 (1.0-2.2) L 02/15/21 22:36 Lipase 27 U/L (22-51) 02/15/21 22:36 Nasal Adenovirus (PCR) NOT DETECTED 02/15/21 23:40 Nasal B. parapertussis DNA (PCR) NOT DETECTED 02/15/21 23:40 Nasal Coronavir 229E PCR NOT DETECTED 02/15/21 23:40 Nasal Coronavir HKU1 PCR NOT DETECTED 02/15/21 23:40 Nasal Coronavir NL63 PCR NOT DETECTED 02/15/21 23:40 Nasal Coronavir OC43 PCR NOT DETECTED 02/15/21 23:40 Nasal Enterovir/Rhinovir PCR NOT DETECTED 02/15/21 23:40 Nasal Influenza B PCR NOT DETECTED 02/15/21 23:40 Nasal Influenza A PCR NOT DETECTED 02/15/21 23:40 Nasal Parainfluen 1 PCR NOT DETECTED 02/15/21 23:40 Nasal Parainfluen 2 PCR NOT DETECTED 02/15/21 23:40 Nasal Parainfluen 3 PCR NOT DETECTED 02/15/21 23:40 Nasal Parainfluen 4 PCR NOT DETECTED 02/15/21 23:40 Nasal RSV (PCR) NOT DETECTED 02/15/21 23:40 Nasal B.pertussis DNA PCR NOT DETECTED 02/15/21 23:40 Nasal C.pneumoniae (PCR) NOT DETECTED 02/15/21 23:40 Pool Human Metapneumo PCR NOT DETECTED 02/15/21 23:40 Nasal M.pneumoniae (PCR) NOT DETECTED 02/15/21 23:40 Nasal SARS-CoV-2 (PCR) NOT DETECTED 02/15/21 23:40 - Procedures Procedures: Procedures VENOUS CATHETERIZATION NEC (06/02/14) ABX Reporting Has patient been on IV antibiotics over the past 48 hours?: Yes
[2021-02-18] MEDS: MELOXICAM 7.5 MG TABLET PO SCH (12:48)
[2021-02-18] MEDS: ZOLPIDEM 5 MG TABLET PO PRN (20:03)
[2021-02-18] MEDS: QUEtiapine 100 MG TABLET PO SCH (20:04)
[2021-02-18] MEDS ORDERED: AMOX/CLAV 875 MG/125 MG TABLET PO SCH (21:00)
[2021-02-19] MEDS: SODIUM CHLORIDE FLUSH 0.9% 10 ML SYRINGE IVP SCH ×5 (00:36→23:41)
[2021-02-19] MEDS: oxyCODONE 5 MG TABLET PO PRN ×2 (00:39→20:08)
[2021-02-19 07:32] LABS: BASOPHILS % (AUTO) 0.6 %; EOSINOPHILS # (AUTO) 0.3 10^3/uL (0.0-0.7); EOSINOPHILS % (AUTO) 6.8 %; HCT - HEMATOCRIT 28.4 % (37.0-47.0); HGB - HEMOGLOBIN 8.7 g/dL (12.0-16.0); LYMPHOCYTES # (AUTO) 1.4 10^3/uL (1.5-3.5); LYMPHOCYTES % (AUTO) 28.1 %; MEAN CORPUSCULAR HEMOGLOBIN 24.6 pg (27.0-31.0); MEAN CORPUSCULAR HGB CONC 30.6 g/dL (32.0-36.0); MEAN CORPUSCULAR VOLUME 80.5 fL (81.0-99.0); MEAN PLATELET VOLUME 9.3 fL (7.9-10.8); MONOCYTES # (AUTO) 0.5 10^3/uL (0.0-1.0); NEUTROPHILS # (AUTO) 2.7 10^3/uL (1.5-6.6); NEUTROPHILS % (AUTO) 54.1 %; PLT - PLATELET COUNT 302 10^3/uL (130-450); RED BLOOD COUNT 3.53 10^6/uL (4.20-5.40); RED CELL DISTRIBUTION WIDTH 17.4 % (12.0-15.0)
[2021-02-19 07:53] LABS: CALCIUM 8.3 mg/dL (8.5-10.3); CREATININE 0.7 mg/dL (0.4-1.0)
[2021-02-19] MEDS: FERROUS GLUCONATE 324 MG TABLET PO SCH (08:26)
[2021-02-19] MEDS: PROPRANOLOL 10 MG TABLET PO SCH ×3 (08:27→17:21)
[2021-02-19] MEDS: SOLIFENACIN SUCCINATE 10 MG TABLET PO SCH (09:49)
[2021-02-19] MEDS: ARIPiprazole 5 MG TABLET PO SCH (09:49)
[2021-02-19] MEDS: CITALOPRAM 10 MG TABLET PO SCH (09:49)
[2021-02-19] MEDS: ENALAPRIL 5 MG TABLET PO SCH (09:49)
[2021-02-19] MEDS: PANTOPRAZOLE 40 MG TABLET PO SCH ×2 (09:49→21:10)
[2021-02-19] MEDS: TOPIRAMATE 25 MG TABLET PO SCH ×2 (09:49→21:10)
[2021-02-19] MEDS: buPROPion SR 150 MG TABLET PO SCH ×2 (09:50→21:10)
[2021-02-19] MEDS: polyethylene glycoL 3350 17 GM PACKET PO SCH (09:50)
[2021-02-19] MEDS: MELOXICAM 7.5 MG TABLET PO SCH (09:50)
[2021-02-19] MEDS: WHEAT DEXTRIN POWDER PACKET PO PRN (09:51)
[2021-02-19] MEDS: SILVER SULFADIAZINE CREAM 25 GM TUBE TOP SCH ×2 (10:27→21:10)
[2021-02-19] MEDS: CIPROFLOXACIN 250 MG TABLET PO SCH ×2 (10:27→21:10)
--- NOTE | 2021-02-19 12:56 | PROVIDER PROGRESS NOTE ---
Assessment/Plan - Problem List (1) Sacral decubitus ulcer Qualifiers: Pressure injury stage: unstageable Qualified Code(s): L89.150 - Pressure ulcer of sacral region, unstageable Assessment/Plan: Patient was consulted with surgeon, surgeon advised application for silvadene dressing change, no surgical debridement indicated, nurse for Q2H turn and reposition. Consult with social work for discharge planning for wound care. (2) Cellulitis of buttock Assessment/Plan: Patient has cellulitis along yaron-annus area and groin area. erythema and swelling is improved. Patient has normal range WBC, patient has no fever. Vancomycin and Zosyn were discontinued. wound culture show positive for Pseudomonas And proteus. according to sensitivity study,We will order Cipro for patient (3) Cerebral palsy Assessment/Plan: stable, pt had Foot braces in place and minimizing pressure on back (4) Neurogenic bladder stable, On dexilant and oxybutynin Suprapubic catheter was changed in the ED prior to admission (5) Depression Assessment/Plan: On bupropion and citalopram (6) HTN (hypertension) Assessment/Plan: stable, On enalapril and propanolol (7) Anemia Assessment/Plan: Hemoglobin 8.7 Iron Deficiency on anemia study Ferrous gluconate 324mg po daily with meals ordered (8) Lymphedema stable, continue Nils bandages changed today and skin care - Current Meds Current Meds: Current Medications Generic Name Dose Route Start Last Admin Trade Name Freq PRN Reason Stop Dose Admin Acetaminophen 650 mg 02/15/21 23:26 02/18/21 19:57 Acetaminophen 325 Mg Tablet PO 650 mg Q4HR PRN Administration Pain or Fever > 38C (100.4F) Aripiprazole 20 mg 02/16/21 09:00 02/19/21 09:49 Aripiprazole 5 Mg Tablet PO 20 mg DAILY KRAIG Administration Bupropion HCl 150 mg 02/16/21 09:00 02/19/21 09:50 Bupropion Sr 150 Mg Tablet PO 150 mg BID KRAIG Administration Ciprofloxacin 500 mg 02/19/21 09:00 02/19/21 10:27 Ciprofloxacin 250 Mg Tablet PO 500 mg BID KRAIG Administration Citalopram Hydrobromide 10 mg 02/16/21 09:00 02/19/21 09:49 Citalopram 10 Mg Tablet PO 10 mg DAILY KRAIG Administration Enalapril Maleate 5 mg 02/16/21 09:00 02/19/21 09:49 Enalapril 5 Mg Tablet PO 5 mg DAILY KRAIG Administration Ferrous Gluconate 324 mg 02/17/21 15:00 02/19/21 08:26 Ferrous Gluconate 324 Mg Tablet PO 324 mg DAILYWM KRAIG Administration Hydroxyzine Pamoate 0 mg 02/15/21 23:34 02/17/21 00:24 Hydroxyzine Pamoate 25 Mg Capsule PO 25 mg DAILY PRN Administration ANXIETY Sodium Chloride 1,000 mls @ 40 mls/hr 02/15/21 23:45 02/18/21 01:33 Normal Saline 0.9% IV Not Given .Q25H KRAIG Meloxicam 15 mg 02/18/21 13:00 02/19/21 09:50 Meloxicam 7.5 Mg Tablet PO 15 mg DAILY KRAIG Administration Ondansetron HCl 4 mg 02/18/21 01:21 02/18/21 01:32 Ondansetron Odt 4 Mg Tablet TL 4 mg Q4HR PRN Administration Nausea / Vomiting Oxycodone HCl 5 mg 02/16/21 01:57 02/19/21 00:39 Oxycodone 5 Mg Tablet PO 5 mg Q8H PRN Administration PAIN Pantoprazole Sodium 40 mg 02/16/21 09:00 02/19/21 09:49 Pantoprazole 40 Mg Tablet PO 40 mg BID KRAIG Administration Polyethylene Glycol 17 gm 02/17/21 09:00 02/19/21 09:50 Polyethylene Glycol 3350 17 Gm Packet PO Not Given DAILY KRAIG Propranolol HCl 20 mg 02/16/21 08:00 02/19/21 12:49 Propranolol 10 Mg Tablet PO 20 mg TIDWM KRAIG Administration Quetiapine Fumarate 300 mg 02/16/21 21:00 02/18/21 20:04 Quetiapine 100 Mg Tablet PO 300 mg QPM KRAIG Administration Silver Sulfadiazine 1 applic 02/16/21 14:35 02/19/21 10:27 Silver Sulfadiazine Cream 25 Gm Tube TOP 1 applic BID KRAIG Administration Sodium Chloride 10 ml 02/16/21 01:00 02/19/21 09:50 Sodium Chloride Flush 0.9% 10 Ml Syringe IVP Not Given 0100,0900,1700 KRAIG Solifenacin 10 mg 02/16/21 09:00 02/19/21 09:49 Solifenacin Succinate 10 Mg Tablet PO 10 mg DAILY KRAIG Administration Topiramate 25 mg 02/16/21 09:00 02/19/21 09:49 Topiramate 25 Mg Tablet PO 25 mg BID KRAIG Administration Wheat Dextrin 1 packet 02/18/21 10:23 02/19/21 09:51 Wheat Dextrin Powder Packet PO 1 packet DAILY PRN Administration Constipation Zolpidem Tartrate 10 mg 02/16/21 00:48 02/18/21 20:03 Zolpidem 5 Mg Tablet PO 10 mg QPM PRN Administration Insomnia - Lab Result Fish Bone Diagrams: 02/19/21 07:26 02/19/21 07:26 - Additional Planning My Orders: My Active Orders 02/19/21 09:00 Ciprofloxacin [Cipro] 500 mg PO BID Subjective - Subjective Patient Reports: Feeling Better Objective Vital Signs: Vital Signs - 24 hr 02/18/21 02/19/21 15:34 00:42 Temperature 36.7 C 37.1 C Heart Rate [ 67 67 Brachial] Respiratory 20 18 Rate Blood Pressure 123/84 H 125/86 H [Right Radial artery] O2 Saturation 97 97 Oxygen O2 Source Room air I&O (Last 24 Hrs): Intake and Output Totals x24h 02/17/21 02/18/21 02/19/21 23:59 23:59 23:59 Intake Total 2864.000 1270 Output Total 2450 1800 425 Balance 414.000 -530 -425 General: Alert, Oriented x3, Cooperative, No acute distress HEENT: Atraumatic Neck: Supple Lymphatic: no adenopathy Neuro: Alert, Non Focal, Oriented Times 3 Cardiovascular: Regular rate, Normal S1, Normal S2 Respiratory: Chest non-tender, No respiratory distress Abdomen: Normal bowel sounds, Soft Extremities: Normal pulses Comments/Notes: erythema around sacral and frontier groin area, mild swelling at sacral area. - Results Results: Laboratory Results WBC 5.0 x10^3/uL (4.8-10.8) 02/19/21 07:26 RBC 3.53 10^6/uL (4.20-5.40) L 02/19/21 07:26 Hgb 8.7 g/dL (12.0-16.0) L 02/19/21 07:26 Hct 28.4 % (37.0-47.0) L 02/19/21 07:26 MCV 80.5 fL (81.0-99.0) L 02/19/21 07:26 MCH 24.6 pg (27.0-31.0) L 02/19/21 07:26 MCHC 30.6 g/dL (32.0-36.0) L 02/19/21 07:26 RDW 17.4 % (12.0-15.0) H 02/19/21 07:26 Plt Count 302 10^3/uL (130-450) 02/19/21 07:26 MPV 9.3 fL (7.9-10.8) 02/19/21 07:26 Neut # (Auto) 2.7 10^3/uL (1.5-6.6) 02/19/21 07:26 Lymph # (Auto) 1.4 10^3/uL (1.5-3.5) L 02/19/21 07:26 [place] # (Auto) 0.5 10^3/uL (0.0-1.0) 02/19/21 07:26 Eos # (Auto) 0.3 10^3/uL (0.0-0.7) 02/19/21 07:26 Baso # (Auto) 0.0 10^3/uL (0.0-0.1) 02/19/21 07:26 Absolute Nucleated RBC 0.00 x10^3/uL 02/19/21 07:26 Nucleated RBC % 0.0 /100WBC 02/19/21 07:26 Sodium 132 mmol/L (135-145) L 02/19/21 07:26 Potassium 4.0 mmol/L (3.5-5.0) 02/19/21 07:26 Chloride 101 mmol/L (101-111) 02/19/21 07:26 Carbon Dioxide 23 mmol/L (21-32) 02/19/21 07:26 Anion Gap 8.0 (6-13) 02/19/21 07:26 BUN 7 mg/dL (6-20) 02/19/21 07:26 Creatinine 0.7 mg/dL (0.4-1.0) 02/19/21 07:26 Estimated GFR (MDRD) 88 (>89) L 02/19/21 07:26 Glucose 92 mg/dL (70-100) 02/19/21 07:26 Lactic Acid 1.4 mmol/L (0.5-2.2) 02/15/21 22:36 Calcium 8.3 mg/dL (8.5-10.3) L 02/19/21 07:26 Iron 13 ug/dL (28-170) L 02/17/21 04:25 TIBC 230 ug/dL (250-450) L 02/17/21 04:25 % Saturation 6 % (20-50) L 02/17/21 04:25 Transferrin 164 mg/dL (192-382) L 02/17/21 04:25 Total Bilirubin 0.5 mg/dL (0.2-1.0) 02/15/21 22:36 AST 12 IU/L (10-42) 02/15/21 22:36 ALT < 10 IU/L (10-60) L 02/15/21 22:36 Alkaline Phosphatase 86 IU/L (42-121) 02/15/21 22:36 Total Protein 7.5 g/dL (6.7-8.2) 02/15/21 22:36 Albumin 3.1 g/dL (3.2-5.5) L 02/15/21 22:36 Globulin 4.4 g/dL (2.1-4.2) H 02/15/21 22:36 Albumin/Globulin Ratio 0.7 (1.0-2.2) L 02/15/21 22:36 Lipase 27 U/L (22-51) 02/15/21 22:36 Nasal Adenovirus (PCR) NOT DETECTED 02/15/21 23:40 Nasal B. parapertussis DNA (PCR) NOT DETECTED 02/15/21 23:40 Nasal Coronavir 229E PCR NOT DETECTED 02/15/21 23:40 Nasal Coronavir HKU1 PCR NOT DETECTED 02/15/21 23:40 Nasal Coronavir NL63 PCR NOT DETECTED 02/15/21 23:40 Nasal Coronavir OC43 PCR NOT DETECTED 02/15/21 23:40 Nasal Enterovir/Rhinovir PCR NOT DETECTED 02/15/21 23:40 Nasal Influenza B PCR NOT DETECTED 02/15/21 23:40 Nasal Influenza A PCR NOT DETECTED 02/15/21 23:40 Nasal Parainfluen 1 PCR NOT DETECTED 02/15/21 23:40 Nasal Parainfluen 2 PCR NOT DETECTED 02/15/21 23:40 Nasal Parainfluen 3 PCR NOT DETECTED 02/15/21 23:40 Nasal Parainfluen 4 PCR NOT DETECTED 02/15/21 23:40 Nasal RSV (PCR) NOT DETECTED 02/15/21 23:40 Nasal B.pertussis DNA PCR NOT DETECTED 02/15/21 23:40 Nasal C.pneumoniae (PCR) NOT DETECTED 02/15/21 23:40 Pool Human Metapneumo PCR NOT DETECTED 02/15/21 23:40 Nasal M.pneumoniae (PCR) NOT DETECTED 02/15/21 23:40 Nasal SARS-CoV-2 (PCR) NOT DETECTED 02/15/21 23:40 - Procedures Procedures: Procedures [facility] (06/02/14) Current Medications - Current Medications Current Medications: Active Medications Acetaminophen (Acetaminophen 325 Mg Tablet) 650 mg PO Q4HR PRN PRN Reason: Pain or Fever > 38C (100.4F) Last Admin: 02/18/21 19:57 Dose: 650 mg Documented by: Aripiprazole (Aripiprazole 5 Mg Tablet) 20 mg PO DAILY [facility] Last Admin: 02/19/21 09:49 Dose: 20 mg Documented by: Bupropion HCl (Bupropion Sr 150 Mg Tablet) 150 mg PO BID [facility] Last Admin: 02/19/21 09:50 Dose: 150 mg Documented by: Ciprofloxacin (Ciprofloxacin 250 Mg Tablet) 500 mg PO BID [facility] Last Admin: 02/19/21 10:27 Dose: 500 mg Documented by: Citalopram Hydrobromide (Citalopram 10 Mg Tablet) 10 mg PO DAILY [facility] Last Admin: 02/19/21 09:49 Dose: 10 mg Documented by: Enalapril Maleate (Enalapril 5 Mg Tablet) 5 mg PO DAILY [facility] Last Admin: 02/19/21 09:49 Dose: 5 mg Documented by: Ferrous Gluconate (Ferrous Gluconate 324 Mg Tablet) 324 mg PO DAILYWM [facility] Last Admin: 02/19/21 08:26 Dose: 324 mg Documented by: Hydrocortisone (Hydrocortisone 1% Ointment 28 Gm Tube) 1 applic TOP TID PRN PRN Reason: rash Hydroxyzine Pamoate (Hydroxyzine Pamoate 25 Mg Capsule) 0 mg PO DAILY PRN PRN Reason: ANXIETY Last Admin: 02/17/21 00:24 Dose: 25 mg Documented by: Hyoscyamine (Hyoscyamine Sl 0.125 Mg Tablet) 0.125 mg SL QID PRN PRN Reason: SPASMS Sodium Chloride (Normal Saline 0.9%) 1,000 mls @ 40 mls/hr IV .Q25H [facility] Last Admin: 02/18/21 01:33 Dose: Not Given Documented by: Loperamide HCl (Loperamide 2 Mg Capsule) 2 mg PO TID PRN PRN Reason: Diarrhea Meloxicam (Meloxicam 7.5 Mg Tablet) 15 mg PO DAILY [facility] Last Admin: 02/19/21 09:50 Dose: 15 mg Documented by: Ondansetron HCl (Ondansetron 4 Mg/2 Ml Vial) 4 mg IVP Q6HR PRN PRN Reason: Nausea / Vomiting Ondansetron HCl (Ondansetron Odt 4 Mg Tablet) 4 mg TL Q4HR PRN PRN Reason: Nausea / Vomiting Last Admin: 02/18/21 01:32 Dose: 4 mg Documented by: Oxycodone HCl (Oxycodone 5 Mg Tablet) 5 mg PO Q8H PRN PRN Reason: PAIN Last Admin: 02/19/21 00:39 Dose: 5 mg Documented by: Pantoprazole Sodium (Pantoprazole 40 Mg Tablet) 40 mg PO BID [facility] Last Admin: 02/19/21 09:49 Dose: 40 mg Documented by: Polyethylene Glycol (Polyethylene Glycol 3350 17 Gm Packet) 17 gm PO DAILY [facility] Last Admin: 02/19/21 09:50 Dose: Not Given Documented by: Propranolol HCl (Propranolol 10 Mg Tablet) 20 mg PO TIDWM [facility] Last Admin: 02/19/21 12:49 Dose: 20 mg Documented by: Quetiapine Fumarate (Quetiapine 100 Mg Tablet) 300 mg PO QPM [facility] Last Admin: 02/18/21 20:04 Dose: 300 mg Documented by: Silver Sulfadiazine (Silver Sulfadiazine Cream 25 Gm Tube) 1 applic TOP BID [facility] Last Admin: 02/19/21 10:27 Dose: 1 applic Documented by: Sodium Chloride (Sodium Chloride Flush 0.9% 10 Ml Syringe) 10 ml IVP PRN PRN PRN Reason: NEEDED PER PROVIDER ORDERS Sodium Chloride (Sodium Chloride Flush 0.9% 10 Ml Syringe) 10 ml IVP 0100,0900,1700 [facility] Last Admin: 02/19/21 09:50 Dose: Not Given Documented by: Solifenacin (Solifenacin Succinate 10 Mg Tablet) 10 mg PO DAILY [facility] Last Admin: 02/19/21 09:49 Dose: 10 mg Documented by: Topiramate (Topiramate 25 Mg Tablet) 25 mg PO BID [facility] Last Admin: 02/19/21 09:49 Dose: 25 mg Documented by: Wheat Dextrin (Wheat Dextrin Powder Packet) 1 packet PO DAILY PRN PRN Reason: Constipation Last Admin: 02/19/21 09:51 Dose: 1 packet Documented by: Zolpidem Tartrate (Zolpidem 5 Mg Tablet) 10 mg PO QPM PRN PRN Reason: Insomnia Last Admin: 02/18/21 20:03 Dose: 10 mg Documented by: Propranolol [Inderal] 20 mg PO TID 04/27/13 Enalapril [Vasotec] 5 mg ORAL DAILY 05/14/14 Citalopram Hydrobromide [Celexa] 10 mg PO DAILY 08/22/16 Oxybutynin Chloride [Ditropan Xl] 10 mg PO DAILY 01/23/17 Quetiapine Fumarate [Seroquel Xr] 300 mg PO DAILY PM 01/23/17 oxyCODONE/ACET 5/325 [Percocet 5 mg/325 mg] 1 tab PO BID MDD 2 03/16/17 Zolpidem Tartrate [Ambien] 10 mg PO QPM PRN 06/05/17 ARIPiprazole [Abilify] 20 mg PO DAILY 08/28/17 Hydrocortisone 1% Oint [Hydrocortisone] 1 gm TP TID PRN 08/28/17 hydrOXYzine pamoate [Hydroxyzine Pamoate] 25 mg PO DAILY PRN 07/09/18 Loperamide [Imodium] 2 mg PO TID PRN 04/29/19 Cranberry 1 tab PO DAILY 06/22/20 Albuterol Sulf [Ventolin Hfa Inhaler] 2 puffs INH Q4HR PRN 02/16/21 Dexlansoprazole [Dexilant] 30 mg PO DAILY 02/16/21 Famotidine [Pepcid] 20 mg PO DAILY 02/16/21 Ferrous Sulfate 325 mg PO BIDWM 02/16/21 Hyoscyamine [Levsin] 0.125 mg SL BID PRN 02/16/21 Loratadine [Claritin] 10 mg PO DAILY 02/16/21 Meloxicam [Mobic] 15 mg PO DAILY 02/16/21 buPROPion [Wellbutrin Xl] 150 mg PO DAILY 02/16/21
[2021-02-19] MEDS: QUEtiapine 100 MG TABLET PO SCH (21:10)
[2021-02-20] MEDS: oxyCODONE 5 MG TABLET PO PRN (08:56)
[2021-02-20] MEDS: MELOXICAM 7.5 MG TABLET PO SCH (08:57)
[2021-02-20] MEDS: ENALAPRIL 5 MG TABLET PO SCH (08:57)
[2021-02-20] MEDS: CIPROFLOXACIN 250 MG TABLET PO SCH ×2 (08:57→21:37)
[2021-02-20] MEDS: TOPIRAMATE 25 MG TABLET PO SCH ×2 (08:57→21:38)
[2021-02-20] MEDS: ARIPiprazole 5 MG TABLET PO SCH (08:57)
[2021-02-20] MEDS: PANTOPRAZOLE 40 MG TABLET PO SCH ×2 (08:58→21:38)
[2021-02-20] MEDS: PROPRANOLOL 10 MG TABLET PO SCH ×3 (08:58→17:23)
[2021-02-20] MEDS: FERROUS GLUCONATE 324 MG TABLET PO SCH (08:58)
[2021-02-20] MEDS: buPROPion SR 150 MG TABLET PO SCH ×2 (08:58→21:37)
[2021-02-20] MEDS: CITALOPRAM 10 MG TABLET PO SCH (08:58)
[2021-02-20] MEDS: SODIUM CHLORIDE FLUSH 0.9% 10 ML SYRINGE IVP SCH (08:59)
[2021-02-20] MEDS: polyethylene glycoL 3350 17 GM PACKET PO SCH (08:59)
[2021-02-20] MEDS: WHEAT DEXTRIN POWDER PACKET PO PRN (09:10)
[2021-02-20] MEDS: SOLIFENACIN SUCCINATE 10 MG TABLET PO SCH (09:11)
[2021-02-20 09:53] LABS: BASOPHILS # (AUTO) 0.1 10^3/uL (0.0-0.1); BASOPHILS % (AUTO) 0.9 %; EOSINOPHILS # (AUTO) 0.4 10^3/uL (0.0-0.7); HCT - HEMATOCRIT 30.1 % (37.0-47.0); HGB - HEMOGLOBIN 9.3 g/dL (12.0-16.0); LYMPHOCYTES # (AUTO) 1.1 10^3/uL (1.5-3.5); LYMPHOCYTES % (AUTO) 20.2 %; MEAN CORPUSCULAR HEMOGLOBIN 24.5 pg (27.0-31.0); MEAN CORPUSCULAR HGB CONC 30.9 g/dL (32.0-36.0); MEAN CORPUSCULAR VOLUME 79.4 fL (81.0-99.0); MEAN PLATELET VOLUME 9.3 fL (7.9-10.8); MONOCYTES # (AUTO) 0.6 10^3/uL (0.0-1.0); MONOCYTES % (AUTO) 11.1 %; NEUTROPHILS # (AUTO) 3.2 10^3/uL (1.5-6.6); NEUTROPHILS % (AUTO) 60.4 %; PLT - PLATELET COUNT 353 10^3/uL (130-450); RED BLOOD COUNT 3.79 10^6/uL (4.20-5.40); RED CELL DISTRIBUTION WIDTH 17.4 % (12.0-15.0); WHITE BLOOD COUNT 5.3 x10^3/uL (4.8-10.8)
[2021-02-20 10:02] LABS: CALCIUM 8.7 mg/dL (8.5-10.3); CREATININE 0.7 mg/dL (0.4-1.0)
[2021-02-20] MEDS: SILVER SULFADIAZINE CREAM 25 GM TUBE TOP SCH ×2 (10:42→21:38)
[2021-02-20] MEDS: CYCLOBENZAPRINE 10 MG TABLET PO PRN (11:51)
--- NOTE | 2021-02-20 13:36 | PROVIDER PROGRESS NOTE ---
Assessment/Plan - Problem List (1) Sacral decubitus ulcer Qualifiers: Pressure injury stage: unstageable Qualified Code(s): L89.150 - Pressure ulcer of sacral region, unstageable Assessment/Plan: 02/20 slight improved, mild swelling. continue application for silvadene dressing change per surgeon, continue nurse for Q2H turn and reposition. Consult with social work for discharge planning for wound care. Patient was consulted with surgeon, surgeon advised application for silvadene dressing change, no surgical debridement indicated, nurse for Q2H turn and reposition. Consult with social work for discharge planning for wound care. (2) Cellulitis of buttock Assessment/Plan: 02/20 pt has hx of dermatitis along yaron-annus area and groin area. pt has hx of cerebral palsy. continue cipro. pt has normal range WBC, patient has no fever Patient has cellulitis along yaron-annus area and groin area. erythema and swelling is improved. Patient has normal range WBC, patient has no fever. Vancomycin and Zosyn were discontinued. wound culture show positive for Pseudomonas And proteus. according to sensitivity study,We will order Cipro for patient (3) Cerebral palsy Assessment/Plan: stable, pt had Foot braces in place and minimizing pressure on back (4) Neurogenic bladder stable, On dexilant and oxybutynin Suprapubic catheter was changed in the ED prior to admission (5) Depression Assessment/Plan: On bupropion and citalopram (6) HTN (hypertension) Assessment/Plan: stable, On enalapril and propanolol (7) Anemia Assessment/Plan: Hemoglobin 8.7 Iron Deficiency on anemia study Ferrous gluconate 324mg po daily with meals ordered (8) Lymphedema stable, continue Nils bandages changed today and skin care (9)Bipolar Continue home medication Abilify and Topamax. - Current Meds Current Meds: Current Medications Generic Name Dose Route Start Last Admin Trade Name Freq PRN Reason Stop Dose Admin Acetaminophen 650 mg 02/15/21 23:26 02/18/21 19:57 Acetaminophen 325 Mg Tablet PO 650 mg Q4HR PRN Administration Pain or Fever > 38C (100.4F) Aripiprazole 20 mg 02/16/21 09:00 02/20/21 08:57 Aripiprazole 5 Mg Tablet PO 20 mg DAILY KRAIG Administration Bupropion HCl 150 mg 02/16/21 09:00 02/20/21 08:58 Bupropion Sr 150 Mg Tablet PO 150 mg BID KRAIG Administration Ciprofloxacin 500 mg 02/19/21 09:00 02/20/21 08:57 Ciprofloxacin 250 Mg Tablet PO 500 mg BID KRAIG Administration Citalopram Hydrobromide 10 mg 02/16/21 09:00 02/20/21 08:58 Citalopram 10 Mg Tablet PO 10 mg DAILY KRAIG Administration Cyclobenzaprine HCl 10 mg 02/20/21 11:27 02/20/21 11:51 Cyclobenzaprine 10 Mg Tablet PO 10 mg TID PRN Administration Spasms Enalapril Maleate 5 mg 02/16/21 09:00 02/20/21 08:57 Enalapril 5 Mg Tablet PO 5 mg DAILY KRAIG Administration Ferrous Gluconate 324 mg 02/17/21 15:00 02/20/21 08:58 Ferrous Gluconate 324 Mg Tablet PO 324 mg DAILYWM KRAIG Administration Hydroxyzine Pamoate 0 mg 02/15/21 23:34 02/17/21 00:24 Hydroxyzine Pamoate 25 Mg Capsule PO 25 mg DAILY PRN Administration ANXIETY Meloxicam 15 mg 02/18/21 13:00 02/20/21 08:57 Meloxicam 7.5 Mg Tablet PO 15 mg DAILY KRAIG Administration Ondansetron HCl 4 mg 02/18/21 01:21 02/18/21 01:32 Ondansetron Odt 4 Mg Tablet TL 4 mg Q4HR PRN Administration Nausea / Vomiting Oxycodone HCl 5 mg 02/16/21 01:57 02/20/21 08:56 Oxycodone 5 Mg Tablet PO 5 mg Q8H PRN Administration PAIN Pantoprazole Sodium 40 mg 02/16/21 09:00 02/20/21 08:58 Pantoprazole 40 Mg Tablet PO 40 mg BID KRAIG Administration Polyethylene Glycol 17 gm 02/17/21 09:00 02/20/21 08:59 Polyethylene Glycol 3350 17 Gm Packet PO Not Given DAILY KRAIG Propranolol HCl 20 mg 02/16/21 08:00 02/20/21 11:51 Propranolol 10 Mg Tablet PO 20 mg TIDWM KRAIG Administration Quetiapine Fumarate 300 mg 02/16/21 21:00 02/19/21 21:10 Quetiapine 100 Mg Tablet PO 300 mg QPM KRAIG Administration Silver Sulfadiazine 1 applic 02/16/21 14:35 02/20/21 10:42 Silver Sulfadiazine Cream 25 Gm Tube TOP 1 applic BID KRAIG Administration Sodium Chloride 10 ml 02/16/21 01:00 02/20/21 08:59 Sodium Chloride Flush 0.9% 10 Ml Syringe IVP Not Given 0100,0900,1700 KRAIG Solifenacin 10 mg 02/16/21 09:00 02/20/21 09:11 Solifenacin Succinate 10 Mg Tablet PO 10 mg DAILY KRAIG Administration Topiramate 25 mg 02/16/21 09:00 02/20/21 08:57 Topiramate 25 Mg Tablet PO 25 mg BID KRAIG Administration Wheat Dextrin 1 packet 02/18/21 10:23 02/20/21 09:10 Wheat Dextrin Powder Packet PO 1 packet DAILY PRN Administration Constipation Zolpidem Tartrate 10 mg 02/16/21 00:48 02/18/21 20:03 Zolpidem 5 Mg Tablet PO 10 mg QPM PRN Administration Insomnia - Lab Result Fish Bone Diagrams: 02/20/21 08:48 02/20/21 08:48 - Additional Planning My Orders: My Active Orders 02/19/21 12:58 Turn and Reposition [RC] Q2H 02/20/21 11:27 Cyclobenzaprine [Flexeril] 10 mg PO TID PRN 02/21/21 05:00 BMP - BASIC METABOLIC PANEL [CHEM] DAILYLAB CBC - COMP BLD CT W/AUTO DIFF [HEME] DAILYLAB 02/22/21 05:00 BMP - BASIC METABOLIC PANEL [CHEM] DAILYLAB CBC - COMP BLD CT W/AUTO DIFF [HEME] DAILYLAB 02/23/21 05:00 BMP - BASIC METABOLIC PANEL [CHEM] DAILYLAB CBC - COMP BLD CT W/AUTO DIFF [HEME] DAILYLAB 02/24/21 05:00 BMP - BASIC METABOLIC PANEL [CHEM] DAILYLAB CBC - COMP BLD CT W/AUTO DIFF [HEME] DAILYLAB 02/25/21 05:00 BMP - BASIC METABOLIC PANEL [CHEM] DAILYLAB CBC - COMP BLD CT W/AUTO DIFF [HEME] DAILYLAB Subjective - Subjective Patient Reports: Feeling Better Objective Vital Signs: Vital Signs - 24 hr 02/19/21 02/19/21 02/20/21 13:41 16:03 00:50 Temperature 36.8 C 36.8 C 37.1 C Heart Rate [ 68 80 67 Brachial] Respiratory 18 18 20 Rate Blood Pressure [Right Brachial artery] Blood Pressure 118/76 111/69 99/47 L [Right Radial artery] O2 Saturation 96 98 98 02/20/21 02/20/21 02/20/21 08:55 09:40 11:50 Temperature 36.3 C L Heart Rate [ 77 74 100 Brachial] Respiratory 17 Rate Blood Pressure 111/71 110/68 125/96 H [Right Brachial artery] Blood Pressure [Right Radial artery] O2 Saturation 96 Oxygen O2 Source Room air I&O (Last 24 Hrs): Intake and Output Totals x24h 02/18/21 02/19/21 02/20/21 23:59 23:59 23:59 Intake Total 1270 720 120 Output Total 1800 2425 1600 Balance -530 -1705 -1480 General: Alert, Oriented x3, No acute distress HEENT: Atraumatic Neck: Supple Lymphatic: no adenopathy Neuro: Alert, Oriented Times 3 Cardiovascular: Regular rate, Normal S1, Normal S2 Respiratory: Chest non-tender, No respiratory distress Abdomen: Normal bowel sounds, Soft Extremities: Normal pulses - Results Results: Laboratory Results WBC 5.3 x10^3/uL (4.8-10.8) 02/20/21 08:48 RBC 3.79 10^6/uL (4.20-5.40) L 02/20/21 08:48 Hgb 9.3 g/dL (12.0-16.0) L 02/20/21 08:48 Hct 30.1 % (37.0-47.0) L 02/20/21 08:48 MCV 79.4 fL (81.0-99.0) L 02/20/21 08:48 MCH 24.5 pg (27.0-31.0) L 02/20/21 08:48 MCHC 30.9 g/dL (32.0-36.0) L 02/20/21 08:48 RDW 17.4 % (12.0-15.0) H 02/20/21 08:48 Plt Count 353 10^3/uL (130-450) 02/20/21 08:48 MPV 9.3 fL (7.9-10.8) 02/20/21 08:48 Neut # (Auto) 3.2 10^3/uL (1.5-6.6) 02/20/21 08:48 Lymph # (Auto) 1.1 10^3/uL (1.5-3.5) L 02/20/21 08:48 [place] # (Auto) 0.6 10^3/uL (0.0-1.0) 02/20/21 08:48 Eos # (Auto) 0.4 10^3/uL (0.0-0.7) 02/20/21 08:48 Baso # (Auto) 0.1 10^3/uL (0.0-0.1) 02/20/21 08:48 Absolute Nucleated RBC 0.00 x10^3/uL 02/20/21 08:48 Nucleated RBC % 0.0 /100WBC 02/20/21 08:48 Sodium 136 mmol/L (135-145) 02/20/21 08:48 Potassium 4.0 mmol/L (3.5-5.0) 02/20/21 08:48 Chloride 104 mmol/L (101-111) 02/20/21 08:48 Carbon Dioxide 22 mmol/L (21-32) 02/20/21 08:48 Anion Gap 10.0 (6-13) 02/20/21 08:48 BUN 7 mg/dL (6-20) 02/20/21 08:48 Creatinine 0.7 mg/dL (0.4-1.0) 02/20/21 08:48 Estimated GFR (MDRD) 88 (>89) L 02/20/21 08:48 Glucose 113 mg/dL (70-100) H 02/20/21 08:48 Lactic Acid 1.4 mmol/L (0.5-2.2) 02/15/21 22:36 Calcium 8.7 mg/dL (8.5-10.3) 02/20/21 08:48 Iron 13 ug/dL (28-170) L 02/17/21 04:25 TIBC 230 ug/dL (250-450) L 02/17/21 04:25 % Saturation 6 % (20-50) L 02/17/21 04:25 Transferrin 164 mg/dL (192-382) L 02/17/21 04:25 Total Bilirubin 0.5 mg/dL (0.2-1.0) 02/15/21 22:36 AST 12 IU/L (10-42) 02/15/21 22:36 ALT < 10 IU/L (10-60) L 02/15/21 22:36 Alkaline Phosphatase 86 IU/L (42-121) 02/15/21 22:36 Total Protein 7.5 g/dL (6.7-8.2) 02/15/21 22:36 Albumin 3.1 g/dL (3.2-5.5) L 02/15/21 22:36 Globulin 4.4 g/dL (2.1-4.2) H 02/15/21 22:36 Albumin/Globulin Ratio 0.7 (1.0-2.2) L 02/15/21 22:36 Lipase 27 U/L (22-51) 02/15/21 22:36 Nasal Adenovirus (PCR) NOT DETECTED 02/15/21 23:40 Nasal B. parapertussis DNA (PCR) NOT DETECTED 02/15/21 23:40 Nasal Coronavir 229E PCR NOT DETECTED 02/15/21 23:40 Nasal Coronavir HKU1 PCR NOT DETECTED 02/15/21 23:40 Nasal Coronavir NL63 PCR NOT DETECTED 02/15/21 23:40 Nasal Coronavir OC43 PCR NOT DETECTED 02/15/21 23:40 Nasal Enterovir/Rhinovir PCR NOT DETECTED 02/15/21 23:40 Nasal Influenza B PCR NOT DETECTED 02/15/21 23:40 Nasal Influenza A PCR NOT DETECTED 02/15/21 23:40 Nasal Parainfluen 1 PCR NOT DETECTED 02/15/21 23:40 Nasal Parainfluen 2 PCR NOT DETECTED 02/15/21 23:40 Nasal Parainfluen 3 PCR NOT DETECTED 02/15/21 23:40 Nasal Parainfluen 4 PCR NOT DETECTED 02/15/21 23:40 Nasal RSV (PCR) NOT DETECTED 02/15/21 23:40 Nasal B.pertussis DNA PCR NOT DETECTED 02/15/21 23:40 Nasal C.pneumoniae (PCR) NOT DETECTED 02/15/21 23:40 Pool Human Metapneumo PCR NOT DETECTED 02/15/21 23:40 Nasal M.pneumoniae (PCR) NOT DETECTED 02/15/21 23:40 Nasal SARS-CoV-2 (PCR) NOT DETECTED 02/15/21 23:40 - Procedures Procedures: Procedures VENOUS CATHETERIZATION NEC (06/02/14) ABX Reporting Has patient been on IV antibiotics over the past 48 hours?: Yes Current Medications - Current Medications Current Medications: Active Medications Acetaminophen (Acetaminophen 325 Mg Tablet) 650 mg PO Q4HR PRN PRN Reason: Pain or Fever > 38C (100.4F) Last Admin: 02/18/21 19:57 Dose: 650 mg Documented by: Aripiprazole (Aripiprazole 5 Mg Tablet) 20 mg PO DAILY [facility] Last Admin: 02/20/21 08:57 Dose: 20 mg Documented by: Bupropion HCl (Bupropion Sr 150 Mg Tablet) 150 mg PO BID [facility] Last Admin: 02/20/21 08:58 Dose: 150 mg Documented by: Ciprofloxacin (Ciprofloxacin 250 Mg Tablet) 500 mg PO BID [facility] Last Admin: 02/20/21 08:57 Dose: 500 mg Documented by: Citalopram Hydrobromide (Citalopram 10 Mg Tablet) 10 mg PO DAILY [facility] Last Admin: 02/20/21 08:58 Dose: 10 mg Documented by: Cyclobenzaprine HCl (Cyclobenzaprine 10 Mg Tablet) 10 mg PO TID PRN PRN Reason: Spasms Last Admin: 02/20/21 11:51 Dose: 10 mg Documented by: Enalapril Maleate (Enalapril 5 Mg Tablet) 5 mg PO DAILY [facility] Last Admin: 02/20/21 08:57 Dose: 5 mg Documented by: Ferrous Gluconate (Ferrous Gluconate 324 Mg Tablet) 324 mg PO DAILYWM [facility] Last Admin: 02/20/21 08:58 Dose: 324 mg Documented by: Hydrocortisone (Hydrocortisone 1% Ointment 28 Gm Tube) 1 applic TOP TID PRN PRN Reason: rash Hydroxyzine Pamoate (Hydroxyzine Pamoate 25 Mg Capsule) 0 mg PO DAILY PRN PRN Reason: ANXIETY Last Admin: 02/17/21 00:24 Dose: 25 mg Documented by: Hyoscyamine (Hyoscyamine Sl 0.125 Mg Tablet) 0.125 mg SL QID PRN PRN Reason: SPASMS Loperamide HCl (Loperamide 2 Mg Capsule) 2 mg PO TID PRN PRN Reason: Diarrhea Meloxicam (Meloxicam 7.5 Mg Tablet) 15 mg PO DAILY [facility] Last Admin: 02/20/21 08:57 Dose: 15 mg Documented by: Ondansetron HCl (Ondansetron 4 Mg/2 Ml Vial) 4 mg IVP Q6HR PRN PRN Reason: Nausea / Vomiting Ondansetron HCl (Ondansetron Odt 4 Mg Tablet) 4 mg TL Q4HR PRN PRN Reason: Nausea / Vomiting Last Admin: 02/18/21 01:32 Dose: 4 mg Documented by: Oxycodone HCl (Oxycodone 5 Mg Tablet) 5 mg PO Q8H PRN PRN Reason: PAIN Last Admin: 02/20/21 08:56 Dose: 5 mg Documented by: Pantoprazole Sodium (Pantoprazole 40 Mg Tablet) 40 mg PO BID [facility] Last Admin: 02/20/21 08:58 Dose: 40 mg Documented by: Polyethylene Glycol (Polyethylene Glycol 3350 17 Gm Packet) 17 gm PO DAILY [facility] Last Admin: 02/20/21 08:59 Dose: Not Given Documented by: Propranolol HCl (Propranolol 10 Mg Tablet) 20 mg PO TIDWM [facility] Last Admin: 02/20/21 11:51 Dose: 20 mg Documented by: Quetiapine Fumarate (Quetiapine 100 Mg Tablet) 300 mg PO QPM [facility] Last Admin: 02/19/21 21:10 Dose: 300 mg Documented by: Silver Sulfadiazine (Silver Sulfadiazine Cream 25 Gm Tube) 1 applic TOP BID [facility] Last Admin: 02/20/21 10:42 Dose: 1 applic Documented by: Sodium Chloride (Sodium Chloride Flush 0.9% 10 Ml Syringe) 10 ml IVP PRN PRN PRN Reason: NEEDED PER PROVIDER ORDERS Sodium Chloride (Sodium Chloride Flush 0.9% 10 Ml Syringe) 10 ml IVP 0100,0900,1700 [facility] Last Admin: 02/20/21 08:59 Dose: Not Given Documented by: Solifenacin (Solifenacin Succinate 10 Mg Tablet) 10 mg PO DAILY [facility] Last Admin: 02/20/21 09:11 Dose: 10 mg Documented by: Topiramate (Topiramate 25 Mg Tablet) 25 mg PO BID [facility] Last Admin: 02/20/21 08:57 Dose: 25 mg Documented by: Wheat Dextrin (Wheat Dextrin Powder Packet) 1 packet PO DAILY PRN PRN Reason: Constipation Last Admin: 02/20/21 09:10 Dose: 1 packet Documented by: Zolpidem Tartrate (Zolpidem 5 Mg Tablet) 10 mg PO QPM PRN PRN Reason: Insomnia Last Admin: 02/18/21 20:03 Dose: 10 mg Documented by: Propranolol [Inderal] 20 mg PO TID 04/27/13 Enalapril [Vasotec] 5 mg ORAL DAILY 05/14/14 Citalopram Hydrobromide [Celexa] 10 mg PO DAILY 08/22/16 Oxybutynin Chloride [Ditropan Xl] 10 mg PO DAILY 01/23/17 Quetiapine Fumarate [Seroquel Xr] 300 mg PO DAILY PM 01/23/17 oxyCODONE/ACET 5/325 [Percocet 5 mg/325 mg] 1 tab PO BID MDD 2 03/16/17 Zolpidem Tartrate [Ambien] 10 mg PO QPM PRN 06/05/17 ARIPiprazole [Abilify] 20 mg PO DAILY 08/28/17 Hydrocortisone 1% Oint [Hydrocortisone] 1 gm TP TID PRN 08/28/17 hydrOXYzine pamoate [Hydroxyzine Pamoate] 25 mg PO DAILY PRN 07/09/18 Loperamide [Imodium] 2 mg PO TID PRN 04/29/19 Cranberry 1 tab PO DAILY 06/22/20 Albuterol Sulf [Ventolin Hfa Inhaler] 2 puffs INH Q4HR PRN 02/16/21 Dexlansoprazole [Dexilant] 30 mg PO DAILY 02/16/21 Famotidine [Pepcid] 20 mg PO DAILY 02/16/21 Ferrous Sulfate 325 mg PO BIDWM 02/16/21 Hyoscyamine [Levsin] 0.125 mg SL BID PRN 02/16/21 Loratadine [Claritin] 10 mg PO DAILY 02/16/21 Meloxicam [Mobic] 15 mg PO DAILY 02/16/21 buPROPion [Wellbutrin Xl] 150 mg PO DAILY 02/16/21
[2021-02-20] MEDS: ACETAMINOPHEN 325 MG TABLET PO PRN (17:00)
[2021-02-20] MEDS: QUEtiapine 100 MG TABLET PO SCH (21:37)
[2021-02-21] MEDS: ACETAMINOPHEN 325 MG TABLET PO PRN ×2 (00:03→08:05)
[2021-02-21] MEDS: oxyCODONE 5 MG TABLET PO PRN ×2 (00:04→21:32)
[2021-02-21 05:46] LABS: CALCIUM 8.7 mg/dL (8.5-10.3); CREATININE 0.7 mg/dL (0.4-1.0); POTASSIUM 3.5 mmol/L (3.5-5.0)
[2021-02-21 05:48] LABS: BASOPHILS # (AUTO) 0.1 10^3/uL (0.0-0.1); EOSINOPHILS # (AUTO) 0.4 10^3/uL (0.0-0.7); HCT - HEMATOCRIT 31.8 % (37.0-47.0); HGB - HEMOGLOBIN 9.5 g/dL (12.0-16.0); LYMPHOCYTES # (AUTO) 1.3 10^3/uL (1.5-3.5); LYMPHOCYTES % (AUTO) 25.3 %; MEAN CORPUSCULAR HEMOGLOBIN 23.8 pg (27.0-31.0); MEAN CORPUSCULAR HGB CONC 29.9 g/dL (32.0-36.0); MEAN CORPUSCULAR VOLUME 79.5 fL (81.0-99.0); MEAN PLATELET VOLUME 9.8 fL (7.9-10.8); MONOCYTES # (AUTO) 0.6 10^3/uL (0.0-1.0); MONOCYTES % (AUTO) 12.7 %; NEUTROPHILS # (AUTO) 2.7 10^3/uL (1.5-6.6); NEUTROPHILS % (AUTO) 53.6 %; PLT - PLATELET COUNT 363 10^3/uL (130-450); RED CELL DISTRIBUTION WIDTH 17.3 % (12.0-15.0)
[2021-02-21] MEDS: CYCLOBENZAPRINE 10 MG TABLET PO PRN (08:05)
[2021-02-21] MEDS: CITALOPRAM 10 MG TABLET PO SCH (08:05)
[2021-02-21] MEDS: PROPRANOLOL 10 MG TABLET PO SCH ×3 (08:05→18:15)
[2021-02-21] MEDS: ARIPiprazole 5 MG TABLET PO SCH (08:06)
[2021-02-21] MEDS: buPROPion SR 150 MG TABLET PO SCH ×2 (08:06→20:54)
[2021-02-21] MEDS: PANTOPRAZOLE 40 MG TABLET PO SCH ×2 (08:06→20:55)
[2021-02-21] MEDS: MELOXICAM 7.5 MG TABLET PO SCH (08:06)
[2021-02-21] MEDS: ENALAPRIL 5 MG TABLET PO SCH (08:06)
[2021-02-21] MEDS: FERROUS GLUCONATE 324 MG TABLET PO SCH (08:06)
[2021-02-21] MEDS: CIPROFLOXACIN 250 MG TABLET PO SCH ×2 (08:06→20:55)
[2021-02-21] MEDS: SOLIFENACIN SUCCINATE 10 MG TABLET PO SCH (08:06)
[2021-02-21] MEDS: TOPIRAMATE 25 MG TABLET PO SCH ×2 (08:06→20:55)
[2021-02-21] MEDS: WHEAT DEXTRIN POWDER PACKET PO PRN (08:07)
[2021-02-21] MEDS: polyethylene glycoL 3350 17 GM PACKET PO SCH (08:07)
[2021-02-21] MEDS: LACTOBACILLUS RHAMNOSUS GG CAPSULE PO SCH (08:31)
--- NOTE | 2021-02-21 11:37 | PROVIDER PROGRESS NOTE ---
Assessment/Plan - Problem List (1) Sacral decubitus ulcer Qualifiers: Pressure injury stage: unstageable Qualified Code(s): L89.150 - Pressure ulcer of sacral region, unstageable Assessment/Plan: 02/21 with nurse to assess your wound again on today. swelling is reduced. There is No tenderness. There are a few skin broken and very small fresh blood drainage. clinically there is no indication for abscess. continue application for silvadene dressing change per surgeon. nurse turn and reposition for pt. Consult with social work for the disposition. continue Consult with social work for disposition planning. 02/20 slight improved, mild swelling. continue application for silvadene dressing change per surgeon, continue nurse for Q2H turn and reposition. Consult with social work for discharge planning for wound care. Patient was consulted with surgeon, surgeon advised application for silvadene dressing change, no surgical debridement indicated, nurse for Q2H turn and reposition. Consult with social work for discharge planning for wound care. (2) Cellulitis of buttock Assessment/Plan: 02/21 Patient has history of dermatitis alone yaron-annus area and groin area. This time, pt has cellulitis. According to old culture in the admission, we will continue Cipro. 02/20 pt has hx of dermatitis along yaron-annus area and groin area. pt has hx of cerebral palsy. continue cipro. pt has normal range WBC, patient has no fever Patient has cellulitis along yaron-annus area and groin area. erythema and sw elling is improved. Patient has normal range WBC, patient has no fever. Vancomycin and Zosyn were discontinued. wound culture show positive for Pseudomonas And proteus. according to sensitivity study,We will order Cipro for patient (3) Cerebral palsy Assessment/Plan: stable, pt had Foot braces in place and minimizing pressure on back (4) Neurogenic bladder stable, On dexilant and oxybutynin Suprapubic catheter was changed in the ED prior to admission (5) Depression Assessment/Plan: On bupropion and citalopram (6) HTN (hypertension) Assessment/Plan: stable, On enalapril and propanolol (7) Anemia Assessment/Plan: Hemoglobin 8.7 Iron Deficiency on anemia study Ferrous gluconate 324mg po daily with meals ordered (8) Lymphedema stable, continue Nils bandages changed today and skin care (9)Bipolar Continue home medication Abilify and Topamax. - Current Meds Current Meds: Current Medications Generic Name Dose Route Start Last Admin Trade Name Freq PRN Reason Stop Dose Admin Acetaminophen 650 mg 02/15/21 23:26 02/21/21 08:05 Acetaminophen 325 Mg Tablet PO 650 mg Q4HR PRN Administration Pain or Fever > 38C (100.4F) Aripiprazole 20 mg 02/16/21 09:00 02/21/21 08:06 Aripiprazole 5 Mg Tablet PO 20 mg DAILY KRAIG Administration Bupropion HCl 150 mg 02/16/21 09:00 02/21/21 08:06 Bupropion Sr 150 Mg Tablet PO 150 mg BID KRAIG Administration Ciprofloxacin 500 mg 02/19/21 09:00 02/21/21 08:06 Ciprofloxacin 250 Mg Tablet PO 500 mg BID KRAIG Administration Citalopram Hydrobromide 10 mg 02/16/21 09:00 02/21/21 08:05 Citalopram 10 Mg Tablet PO 10 mg DAILY KRAIG Administration Cyclobenzaprine HCl 10 mg 02/20/21 11:27 02/21/21 08:05 Cyclobenzaprine 10 Mg Tablet PO 10 mg TID PRN Administration Spasms Enalapril Maleate 5 mg 02/16/21 09:00 02/21/21 08:06 Enalapril 5 Mg Tablet PO 5 mg DAILY KRAIG Administration Ferrous Gluconate 324 mg 02/17/21 15:00 02/21/21 08:06 Ferrous Gluconate 324 Mg Tablet PO 324 mg DAILYWM KRAIG Administration Hydroxyzine Pamoate 0 mg 02/15/21 23:34 02/17/21 00:24 Hydroxyzine Pamoate 25 Mg Capsule PO 25 mg DAILY PRN Administration ANXIETY Lactobacillus Rhamnosus 1 cap 02/21/21 09:00 02/21/21 08:31 Lactobacillus Rhamnosus Gg Capsule PO 1 cap DAILY KRAIG Administration Meloxicam 15 mg 02/18/21 13:00 02/21/21 08:06 Meloxicam 7.5 Mg Tablet PO 15 mg DAILY KRAIG Administration Ondansetron HCl 4 mg 02/18/21 01:21 02/18/21 01:32 Ondansetron Odt 4 Mg Tablet TL 4 mg Q4HR PRN Administration Nausea / Vomiting Oxycodone HCl 5 mg 02/16/21 01:57 02/21/21 00:04 Oxycodone 5 Mg Tablet PO 5 mg Q8H PRN Administration PAIN Pantoprazole Sodium 40 mg 02/16/21 09:00 02/21/21 08:06 Pantoprazole 40 Mg Tablet PO 40 mg BID KRAIG Administration Polyethylene Glycol 17 gm 02/17/21 09:00 02/21/21 08:07 Polyethylene Glycol 3350 17 Gm Packet PO Not Given DAILY KRAIG Propranolol HCl 20 mg 02/16/21 08:00 02/21/21 08:05 Propranolol 10 Mg Tablet PO 20 mg TIDWM KRAIG Administration Quetiapine Fumarate 300 mg 02/16/21 21:00 02/20/21 21:37 Quetiapine 100 Mg Tablet PO 300 mg QPM KRAIG Administration Silver Sulfadiazine 1 applic 02/16/21 14:35 02/20/21 21:38 Silver Sulfadiazine Cream 25 Gm Tube TOP 1 applic BID KRAIG Administration Solifenacin 10 mg 02/16/21 09:00 02/21/21 08:06 Solifenacin Succinate 10 Mg Tablet PO 10 mg DAILY KRAIG Administration Topiramate 25 mg 02/16/21 09:00 02/21/21 08:06 Topiramate 25 Mg Tablet PO 25 mg BID KRAIG Administration Wheat Dextrin 1 packet 02/18/21 10:23 02/21/21 08:07 Wheat Dextrin Powder Packet PO 1 packet DAILY PRN Administration Constipation Zolpidem Tartrate 10 mg 02/16/21 00:48 02/18/21 20:03 Zolpidem 5 Mg Tablet PO 10 mg QPM PRN Administration Insomnia - Lab Result Fish Bone Diagrams: 02/21/21 05:00 02/21/21 05:00 - Additional Planning My Orders: My Active Orders 02/20/21 11:27 Cyclobenzaprine [Flexeril] 10 mg PO TID PRN 02/21/21 09:00 Lactobacillus Rhamnosus GG [Culturelle] 1 cap PO DAILY 02/22/21 05:00 BMP - BASIC METABOLIC PANEL [CHEM] DAILYLAB CBC - COMP BLD CT W/AUTO DIFF [HEME] DAILYLAB 02/23/21 05:00 BMP - BASIC METABOLIC PANEL [CHEM] DAILYLAB CBC - COMP BLD CT W/AUTO DIFF [HEME] DAILYLAB 02/24/21 05:00 BMP - BASIC METABOLIC PANEL [CHEM] DAILYLAB CBC - COMP BLD CT W/AUTO DIFF [HEME] DAILYLAB 02/25/21 05:00 BMP - BASIC METABOLIC PANEL [CHEM] DAILYLAB CBC - COMP BLD CT W/AUTO DIFF [HEME] DAILYLAB Subjective - Subjective Patient Reports: Feeling Better Objective Vital Signs: Vital Signs - 24 hr 02/20/21 02/20/21 02/20/21 11:50 16:19 23:39 Temperature 37.3 C 36.9 C Heart Rate [ 100 67 59 L Brachial] Respiratory 20 18 Rate Blood Pressure 127/71 [Left Brachial artery] Blood Pressure 125/96 H 114/86 H [Right Brachial artery] O2 Saturation 96 97 Oxygen O2 Source Room air I&O (Last 24 Hrs): Intake and Output Totals x24h 02/19/21 02/20/21 02/21/21 23:59 23:59 23:59 Intake Total 720 900 120 Output Total 2425 4720 600 Balance -1560 -3798 -767 General: Alert, Oriented x3, Cooperative, No acute distress HEENT: Atraumatic Neck: Supple Lymphatic: no adenopathy Neuro: Alert, Non Focal, Oriented Times 3 Cardiovascular: Regular rate, Normal S1, Normal S2 Respiratory: Chest non-tender, No respiratory distress Abdomen: Normal bowel sounds, Soft Extremities: Normal pulses - Results Results: Laboratory Results WBC 5.0 x10^3/uL (4.8-10.8) 02/21/21 05:00 RBC 4.00 10^6/uL (4.20-5.40) L 02/21/21 05:00 Hgb 9.5 g/dL (12.0-16.0) L 02/21/21 05:00 Hct 31.8 % (37.0-47.0) L 02/21/21 05:00 MCV 79.5 fL (81.0-99.0) L 02/21/21 05:00 MCH 23.8 pg (27.0-31.0) L 02/21/21 05:00 MCHC 29.9 g/dL (32.0-36.0) L 02/21/21 05:00 RDW 17.3 % (12.0-15.0) H 02/21/21 05:00 Plt Count 363 10^3/uL (130-450) 02/21/21 05:00 MPV 9.8 fL (7.9-10.8) 02/21/21 05:00 Neut # (Auto) 2.7 10^3/uL (1.5-6.6) 02/21/21 05:00 Lymph # (Auto) 1.3 10^3/uL (1.5-3.5) L 02/21/21 05:00 [place] # (Auto) 0.6 10^3/uL (0.0-1.0) 02/21/21 05:00 Eos # (Auto) 0.4 10^3/uL (0.0-0.7) 02/21/21 05:00 Baso # (Auto) 0.1 10^3/uL (0.0-0.1) 02/21/21 05:00 Absolute Nucleated RBC 0.00 x10^3/uL 02/21/21 05:00 Nucleated RBC % 0.0 /100WBC 02/21/21 05:00 Sodium 135 mmol/L (135-145) 02/21/21 05:00 Potassium 3.5 mmol/L (3.5-5.0) 02/21/21 05:00 Chloride 104 mmol/L (101-111) 02/21/21 05:00 Carbon Dioxide 23 mmol/L (21-32) 02/21/21 05:00 Anion Gap 8.0 (6-13) 02/21/21 05:00 BUN 7 mg/dL (6-20) 02/21/21 05:00 Creatinine 0.7 mg/dL (0.4-1.0) 02/21/21 05:00 Estimated GFR (MDRD) 88 (>89) L 02/21/21 05:00 Glucose 103 mg/dL (70-100) H 02/21/21 05:00 Lactic Acid 1.4 mmol/L (0.5-2.2) 02/15/21 22:36 Calcium 8.7 mg/dL (8.5-10.3) 02/21/21 05:00 Iron 13 ug/dL (28-170) L 02/17/21 04:25 TIBC 230 ug/dL (250-450) L 02/17/21 04:25 % Saturation 6 % (20-50) L 02/17/21 04:25 Transferrin 164 mg/dL (192-382) L 02/17/21 04:25 Total Bilirubin 0.5 mg/dL (0.2-1.0) 02/15/21 22:36 AST 12 IU/L (10-42) 02/15/21 22:36 ALT < 10 IU/L (10-60) L 02/15/21 22:36 Alkaline Phosphatase 86 IU/L (42-121) 02/15/21 22:36 Total Protein 7.5 g/dL (6.7-8.2) 02/15/21 22:36 Albumin 3.1 g/dL (3.2-5.5) L 02/15/21 22:36 Globulin 4.4 g/dL (2.1-4.2) H 02/15/21 22:36 Albumin/Globulin Ratio 0.7 (1.0-2.2) L 02/15/21 22:36 Lipase 27 U/L (22-51) 02/15/21 22:36 Nasal Adenovirus (PCR) NOT DETECTED 02/15/21 23:40 Nasal B. parapertussis DNA (PCR) NOT DETECTED 02/15/21 23:40 Nasal Coronavir 229E PCR NOT DETECTED 02/15/21 23:40 Nasal Coronavir HKU1 PCR NOT DETECTED 02/15/21 23:40 Nasal Coronavir NL63 PCR NOT DETECTED 02/15/21 23:40 Nasal Coronavir OC43 PCR NOT DETECTED 02/15/21 23:40 Nasal Enterovir/Rhinovir PCR NOT DETECTED 02/15/21 23:40 Nasal Influenza B PCR NOT DETECTED 02/15/21 23:40 Nasal Influenza A PCR NOT DETECTED 02/15/21 23:40 Nasal Parainfluen 1 PCR NOT DETECTED 02/15/21 23:40 Nasal Parainfluen 2 PCR NOT DETECTED 02/15/21 23:40 Nasal Parainfluen 3 PCR NOT DETECTED 02/15/21 23:40 Nasal Parainfluen 4 PCR NOT DETECTED 02/15/21 23:40 Nasal RSV (PCR) NOT DETECTED 02/15/21 23:40 Nasal B.pertussis DNA PCR NOT DETECTED 02/15/21 23:40 Nasal C.pneumoniae (PCR) NOT DETECTED 02/15/21 23:40 Pool Human Metapneumo PCR NOT DETECTED 02/15/21 23:40 Nasal M.pneumoniae (PCR) NOT DETECTED 02/15/21 23:40 Nasal SARS-CoV-2 (PCR) NOT DETECTED 02/15/21 23:40 - Procedures Procedures: Procedures VENOUS CATHETERIZATION NEC (06/02/14) ABX Reporting Has patient been on IV antibiotics over the past 48 hours?: Yes Current Medications - Current Medications Current Medications: Active Medications Acetaminophen (Acetaminophen 325 Mg Tablet) 650 mg PO Q4HR PRN PRN Reason: Pain or Fever > 38C (100.4F) Last Admin: 02/21/21 08:05 Dose: 650 mg Documented by: Aripiprazole (Aripiprazole 5 Mg Tablet) 20 mg PO DAILY [facility] Last Admin: 02/21/21 08:06 Dose: 20 mg Documented by: Bupropion HCl (Bupropion Sr 150 Mg Tablet) 150 mg PO BID [facility] Last Admin: 02/21/21 08:06 Dose: 150 mg Documented by: Ciprofloxacin (Ciprofloxacin 250 Mg Tablet) 500 mg PO BID [facility] Last Admin: 02/21/21 08:06 Dose: 500 mg Documented by: Citalopram Hydrobromide (Citalopram 10 Mg Tablet) 10 mg PO DAILY [facility] Last Admin: 02/21/21 08:05 Dose: 10 mg Documented by: Cyclobenzaprine HCl (Cyclobenzaprine 10 Mg Tablet) 10 mg PO TID PRN PRN Reason: Spasms Last Admin: 02/21/21 08:05 Dose: 10 mg Documented by: Enalapril Maleate (Enalapril 5 Mg Tablet) 5 mg PO DAILY [facility] Last Admin: 02/21/21 08:06 Dose: 5 mg Documented by: Ferrous Gluconate ([facility]ous Gluconate 324 Mg [facility] Admin: 02/21/21 08:06 Dose: 324 mg Documented by: Hydrocortisone (Hydrocortisone 1% Ointment 28 Gm Tube) 1 applic TOP TID PRN PRN Reason: rash Hydroxyzine Pamoate (Hydroxyzine Pamoate 25 Mg Capsule) 0 mg PO DAILY PRN PRN Reason: ANXIETY Last Admin: 02/17/21 00:24 Dose: 25 mg Documented by: Hyoscyamine (Hyoscyamine Sl 0.125 Mg Tablet) 0.125 mg SL QID PRN PRN Reason: SPASMS Lactobacillus Rhamnosus (Lactobacillus Rhamnosus Gg Capsule) 1 cap PO DAILY [facility] Last Admin: 02/21/21 08:31 Dose: 1 cap Documented by: Loperamide HCl (Loperamide 2 Mg Capsule) 2 mg PO TID PRN PRN Reason: Diarrhea Meloxicam (Meloxicam 7.5 Mg Tablet) 15 mg PO DAILY [facility] Last Admin: 02/21/21 08:06 Dose: 15 mg Documented by: Ondansetron HCl (Ondansetron 4 Mg/2 Ml Vial) 4 mg IVP Q6HR PRN PRN Reason: Nausea / Vomiting Ondansetron HCl (Ondansetron Odt 4 Mg Tablet) 4 mg TL Q4HR PRN PRN Reason: Nausea / Vomiting Last Admin: 02/18/21 01:32 Dose: 4 mg Documented by: Oxycodone HCl (Oxycodone 5 Mg Tablet) 5 mg PO Q8H PRN PRN Reason: PAIN Last Admin: 02/21/21 00:04 Dose: 5 mg Documented by: Pantoprazole Sodium (Pantoprazole 40 Mg Tablet) 40 mg PO BID [facility] Last Admin: 02/21/21 08:06 Dose: 40 mg Documented by: Polyethylene Glycol (Polyethylene Glycol 3350 17 Gm Packet) 17 gm PO DAILY [facility] Last Admin: 02/21/21 08:07 Dose: Not Given Documented by: Propranolol HCl (Propranolol 10 Mg Tablet) 20 mg PO TIDWM [facility] Last Admin: 02/21/21 12:13 Dose: 20 mg Documented by: Quetiapine Fumarate (Quetiapine 100 Mg Tablet) 300 mg PO QPM [facility] Last Admin: 02/20/21 21:37 Dose: 300 mg Documented by: Silver Sulfadiazine (Silver Sulfadiazine Cream 25 Gm Tube) 1 applic TOP BID [facility] Last Admin: 02/21/21 12:13 Dose: 1 applic Documented by: Solifenacin (Solifenacin Succinate 10 Mg Tablet) 10 mg PO DAILY [facility] Last Admin: 02/21/21 08:06 Dose: 10 mg Documented by: Topiramate (Topiramate 25 Mg Tablet) 25 mg PO BID [facility] Last Admin: 02/21/21 08:06 Dose: 25 mg Documented by: Wheat Dextrin (Wheat Dextrin Powder Packet) 1 packet PO DAILY PRN PRN Reason: Constipation Last Admin: 02/21/21 08:07 Dose: 1 packet Documented by: Zolpidem Tartrate (Zolpidem 5 Mg Tablet) 10 mg PO QPM PRN PRN Reason: Insomnia Last Admin: 02/18/21 20:03 Dose: 10 mg Documented by: Propranolol [Inderal] 20 mg PO TID 04/27/13 Enalapril [Vasotec] 5 mg ORAL DAILY 05/14/14 Citalopram Hydrobromide [Celexa] 10 mg PO DAILY 08/22/16 Oxybutynin Chloride [Ditropan Xl] 10 mg PO DAILY 01/23/17 Quetiapine Fumarate [Seroquel Xr] 300 mg PO DAILY PM 01/23/17 oxyCODONE/ACET 5/325 [Percocet 5 mg/325 mg] 1 tab PO BID MDD 2 03/16/17 Zolpidem Tartrate [Ambien] 10 mg PO QPM PRN 06/05/17 ARIPiprazole [Abilify] 20 mg PO DAILY 08/28/17 Hydrocortisone 1% Oint [Hydrocortisone] 1 gm TP TID PRN 08/28/17 hydrOXYzine pamoate [Hydroxyzine Pamoate] 25 mg PO DAILY PRN 07/09/18 Loperamide [Imodium] 2 mg PO TID PRN 04/29/19 Cranberry 1 tab PO DAILY 06/22/20 Albuterol Sulf [Ventolin Hfa Inhaler] 2 puffs INH Q4HR PRN 02/16/21 Dexlansoprazole [Dexilant] 30 mg PO DAILY 02/16/21 Famotidine [Pepcid] 20 mg PO DAILY 02/16/21 Ferrous Sulfate 325 mg PO BIDWM 02/16/21 Hyoscyamine [Levsin] 0.125 mg SL BID PRN 02/16/21 Loratadine [Claritin] 10 mg PO DAILY 02/16/21 Meloxicam [Mobic] 15 mg PO DAILY 02/16/21 buPROPion [Wellbutrin Xl] 150 mg PO DAILY 02/16/21
[2021-02-21] MEDS: SILVER SULFADIAZINE CREAM 25 GM TUBE TOP SCH ×2 (12:13→20:23)
[2021-02-21] MEDS: QUEtiapine 100 MG TABLET PO SCH (20:55)
[2021-02-22] MEDS: ACETAMINOPHEN 325 MG TABLET PO PRN (01:25)
[2021-02-22 06:27] LABS: BASOPHILS % (AUTO) 0.7 %; EOSINOPHILS # (AUTO) 0.3 10^3/uL (0.0-0.7); EOSINOPHILS % (AUTO) 5.2 %; HCT - HEMATOCRIT 32.4 % (37.0-47.0); HGB - HEMOGLOBIN 9.9 g/dL (12.0-16.0); LYMPHOCYTES # (AUTO) 1.4 10^3/uL (1.5-3.5); MEAN CORPUSCULAR HEMOGLOBIN 24.4 pg (27.0-31.0); MEAN CORPUSCULAR HGB CONC 30.6 g/dL (32.0-36.0); MEAN CORPUSCULAR VOLUME 79.8 fL (81.0-99.0); MEAN PLATELET VOLUME 9.1 fL (7.9-10.8); MONOCYTES # (AUTO) 0.6 10^3/uL (0.0-1.0); NEUTROPHILS # (AUTO) 3.3 10^3/uL (1.5-6.6); NEUTROPHILS % (AUTO) 58.9 %; PLT - PLATELET COUNT 370 10^3/uL (130-450); RED BLOOD COUNT 4.06 10^6/uL (4.20-5.40); RED CELL DISTRIBUTION WIDTH 17.5 % (12.0-15.0); WHITE BLOOD COUNT 5.6 x10^3/uL (4.8-10.8)
[2021-02-22 06:35] LABS: CALCIUM 8.6 mg/dL (8.5-10.3); CREATININE 0.7 mg/dL (0.4-1.0); POTASSIUM 3.7 mmol/L (3.5-5.0)
[2021-02-22] MEDS: LACTOBACILLUS RHAMNOSUS GG CAPSULE PO SCH (10:54)
[2021-02-22] MEDS: FERROUS GLUCONATE 324 MG TABLET PO SCH (10:54)
[2021-02-22] MEDS: MELOXICAM 7.5 MG TABLET PO SCH (10:56)
[2021-02-22] MEDS: ARIPiprazole 5 MG TABLET PO SCH (10:57)
[2021-02-22] MEDS: SILVER SULFADIAZINE CREAM 25 GM TUBE TOP SCH ×2 (11:04→22:24)
[2021-02-22] MEDS: SOLIFENACIN SUCCINATE 10 MG TABLET PO SCH (11:10)
[2021-02-22] MEDS: buPROPion SR 150 MG TABLET PO SCH ×2 (11:11→22:23)
[2021-02-22] MEDS: oxyCODONE 5 MG TABLET PO PRN (11:11)
[2021-02-22] MEDS: PANTOPRAZOLE 40 MG TABLET PO SCH ×2 (11:12→22:23)
[2021-02-22] MEDS: ENALAPRIL 5 MG TABLET PO SCH (11:13)
[2021-02-22] MEDS: CITALOPRAM 10 MG TABLET PO SCH (11:14)
[2021-02-22] MEDS: MULTIVITAMIN W/MINERALS TABLET PO SCH (11:15)
[2021-02-22] MEDS: CIPROFLOXACIN 250 MG TABLET PO SCH ×2 (11:15→22:23)
[2021-02-22] MEDS: PROPRANOLOL 10 MG TABLET PO SCH ×3 (11:15→17:25)
[2021-02-22] MEDS: polyethylene glycoL 3350 17 GM PACKET PO SCH (11:19)
[2021-02-22] MEDS: TOPIRAMATE 25 MG TABLET PO SCH ×2 (11:20→22:23)
[2021-02-22] MEDS: CYCLOBENZAPRINE 10 MG TABLET PO PRN (13:09)
--- NOTE | 2021-02-22 13:32 | PROVIDER PROGRESS NOTE ---
Assessment/Plan - Problem List (1) Sacral decubitus ulcer Qualifiers: Pressure injury stage: unstageable Qualified Code(s): L89.150 - Pressure ulcer of sacral region, unstageable Assessment/Plan: 02/22 pt has no complain, and continue to have sacral decubitus ulcer care for pt. update pt's medical conditions to pt's mother and answered her questions. pt is pending for SNF replacement. 02/21 with nurse to assess your wound again on today. swelling is reduced. There is No tenderness. There are a few skin broken and very small fresh blood draina ge. clinically there is no indication for abscess. continue application for silvadene dressing change per surgeon. nurse turn and reposition for pt. Consult with social work for the disposition. continue Consult with social work for disposition planning. 02/20 slight improved, mild swelling. continue application for silvadene dressing change per surgeon, continue nurse for Q2H turn and reposition. Consult with social work for discharge planning for wound care. Patient was consulted with surgeon, surgeon advised application for silvadene dressing change, no surgical debridement indicated, nurse for Q2H turn and reposition. Consult with social work for discharge planning for wound care. (2) Cellulitis of buttock Assessment/Plan: 02/22 continue cipro. pt's WBC continue normal arrange, pt has no fever. 02/21 Patient has history of dermatitis alone yaron-annus area and groin area. This time, pt has cellulitis. According to old culture in the admission, we will continue Cipro. 02/20 pt has hx of dermatitis along yaron-annus area and groin area. pt has hx of cerebral palsy. continue cipro. pt has normal range WBC, patient has no fever Patient has cellulitis along yaron-annus area and groin area. erythema and swelling is improved. Patient has normal range WBC, patient has no fever. Vancomycin and Zosyn were discontinued. wound culture show positive for Pseudomonas And proteus. according to sensitivity study,We will order Cipro for patient (3) Cerebral palsy Assessment/Plan: stable, pt had Foot braces in place and minimizing pressure on back (4) Neurogenic bladder stable, On dexilant and oxybutynin Suprapubic catheter was changed in the ED prior to admission (5) Depression Assessment/Plan: On bupropion and citalopram (6) HTN (hypertension) Assessment/Plan: stable, On enalapril and propanolol (7) Anemia Assessment/Plan: Hemoglobin 8.7 Iron Deficiency on anemia study Ferrous gluconate 324mg po daily with meals ordered (8) Lymphedema stable, continue Nils bandages changed today and skin care (9)Bipolar Continue home medication Abilify and Topamax. - Current Meds Current Meds: Current Medications Generic Name Dose Route Start Last Admin Trade Name Freq PRN Reason Stop Dose Admin Acetaminophen 650 mg 02/15/21 23:26 02/22/21 01:25 Acetaminophen 325 Mg Tablet PO 650 mg Q4HR PRN Administration Pain or Fever > 38C (100.4F) Aripiprazole 20 mg 02/16/21 09:00 02/22/21 10:57 Aripiprazole 5 Mg Tablet PO 20 mg DAILY KRAIG Administration Bupropion HCl 150 mg 02/16/21 09:00 02/22/21 11:11 Bupropion Sr 150 Mg Tablet PO 150 mg BID KRAIG Administration Ciprofloxacin 500 mg 02/19/21 09:00 02/22/21 11:15 Ciprofloxacin 250 Mg Tablet PO 500 mg BID KRAIG Administration Citalopram Hydrobromide 10 mg 02/16/21 09:00 02/22/21 11:14 Citalopram 10 Mg Tablet PO 10 mg DAILY KRAIG Administration Cyclobenzaprine HCl 10 mg 02/20/21 11:27 02/22/21 13:09 Cyclobenzaprine 10 Mg Tablet PO 10 mg TID PRN Administration Spasms Enalapril Maleate 5 mg 02/16/21 09:00 02/22/21 11:13 Enalapril 5 Mg Tablet PO 5 mg DAILY KRAIG Administration Ferrous Gluconate 324 mg 02/17/21 15:00 02/22/21 10:54 Ferrous Gluconate 324 Mg Tablet PO 324 mg DAILYWM KRAIG Administration Hydroxyzine Pamoate 0 mg 02/15/21 23:34 02/17/21 00:24 Hydroxyzine Pamoate 25 Mg Capsule PO 25 mg DAILY PRN Administration ANXIETY Lactobacillus Rhamnosus 1 cap 02/21/21 09:00 02/22/21 10:54 Lactobacillus Rhamnosus Gg Capsule PO 1 cap DAILY KRAIG Administration Meloxicam 15 mg 02/18/21 13:00 02/22/21 10:56 Meloxicam 7.5 Mg Tablet PO 15 mg DAILY KRAIG Administration Multivitamins/Minerals 1 tab 02/22/21 09:00 02/22/21 11:15 Multivitamin W/Minerals Tablet PO 1 tab DAILYWM KRAIG Administration Ondansetron HCl 4 mg 02/18/21 01:21 02/18/21 01:32 Ondansetron Odt 4 Mg Tablet TL 4 mg Q4HR PRN Administration Nausea / Vomiting Oxycodone HCl 5 mg 02/16/21 01:57 02/22/21 11:11 Oxycodone 5 Mg Tablet PO 5 mg Q8H PRN Administration PAIN Pantoprazole Sodium 40 mg 02/16/21 09:00 02/22/21 11:12 Pantoprazole 40 Mg Tablet PO 40 mg BID KRAIG Administration Polyethylene Glycol 17 gm 02/17/21 09:00 02/22/21 11:19 Polyethylene Glycol 3350 17 Gm Packet PO Not Given DAILY KRAIG Propranolol HCl 20 mg 02/16/21 08:00 02/22/21 13:11 Propranolol 10 Mg Tablet PO 20 mg TIDWM KRAIG Administration Quetiapine Fumarate 300 mg 02/16/21 21:00 02/21/21 20:55 Quetiapine 100 Mg Tablet PO 300 mg QPM KRAIG Administration Silver Sulfadiazine 1 applic 02/16/21 14:35 02/22/21 11:04 Silver Sulfadiazine Cream 25 Gm Tube TOP 1 applic BID KRAIG Administration Solifenacin 10 mg 02/16/21 09:00 02/22/21 11:10 Solifenacin Succinate 10 Mg Tablet PO 10 mg DAILY KRAIG Administration Topiramate 25 mg 02/16/21 09:00 02/22/21 11:20 Topiramate 25 Mg Tablet PO 25 mg BID KRAIG Administration Wheat Dextrin 1 packet 02/18/21 10:23 02/21/21 08:07 Wheat Dextrin Powder Packet PO 1 packet DAILY PRN Administration Constipation Zolpidem Tartrate 10 mg 02/16/21 00:48 02/18/21 20:03 Zolpidem 5 Mg Tablet PO 10 mg QPM PRN Administration Insomnia - Lab Result Fish Bone Diagrams: 02/22/21 06:20 02/22/21 06:20 - Additional Planning My Orders: My Active Orders 02/22/21 09:00 Multivitamin W/Minerals [Theragran M] 1 tab PO DAILYWM 02/22/21 Lunch Regular Diet [DIET] 02/22/21 12:11 Nutrition Consult [CONS] Routine 02/23/21 05:00 BMP - BASIC METABOLIC PANEL [CHEM] DAILYLAB CBC - COMP BLD CT W/AUTO DIFF [HEME] DAILYLAB 02/24/21 05:00 BMP - BASIC METABOLIC PANEL [CHEM] DAILYLAB CBC - COMP BLD CT W/AUTO DIFF [HEME] DAILYLAB 02/25/21 05:00 BMP - BASIC METABOLIC PANEL [CHEM] DAILYLAB CBC - COMP BLD CT W/AUTO DIFF [HEME] DAILYLAB Subjective - Subjective Patient Reports: Feeling Better Objective Vital Signs: Vital Signs - 24 hr 02/21/21 02/22/21 02/22/21 15:59 01:36 09:35 Temperature 37.3 C 36.8 C 37.1 C Heart Rate [ 63 70 70 Brachial] Respiratory 20 18 18 Rate Blood Pressure 126/97 H 124/71 [Left Brachial artery] Blood Pressure 129/77 [Right Radial artery] O2 Saturation 97 96 96 Oxygen O2 Source Room air I&O (Last 24 Hrs): Intake and Output Totals x24h 02/20/21 02/21/21 02/22/21 23:59 23:59 23:59 Intake Total 900 920 236 Output Total 3550 2150 475 Balance -5360 -0090 -239 General: Alert, Oriented x3, Cooperative, No acute distress HEENT: Atraumatic Neck: Supple Lymphatic: no adenopathy Neuro: Alert, Non Focal, Oriented Times 3 Cardiovascular: Regular rate, Normal S1, Normal S2 Respiratory: Chest non-tender, No respiratory distress Abdomen: Normal bowel sounds, Soft Comments/Notes: reduced swelling at sacral ulcer, a few skin broken down with very small fresh blood. - Results Results: Laboratory Results WBC 5.6 x10^3/uL (4.8-10.8) 02/22/21 06:20 RBC 4.06 10^6/uL (4.20-5.40) L 02/22/21 06:20 Hgb 9.9 g/dL (12.0-16.0) L 02/22/21 06:20 Hct 32.4 % (37.0-47.0) L 02/22/21 06:20 MCV 79.8 fL (81.0-99.0) L 02/22/21 06:20 MCH 24.4 pg (27.0-31.0) L 02/22/21 06:20 MCHC 30.6 g/dL (32.0-36.0) L 02/22/21 06:20 RDW 17.5 % (12.0-15.0) H 02/22/21 06:20 Plt Count 370 10^3/uL (130-450) 02/22/21 06:20 MPV 9.1 fL (7.9-10.8) 02/22/21 06:20 Neut # (Auto) 3.3 10^3/uL (1.5-6.6) 02/22/21 06:20 Lymph # (Auto) 1.4 10^3/uL (1.5-3.5) L 02/22/21 06:20 [place] # (Auto) 0.6 10^3/uL (0.0-1.0) 02/22/21 06:20 Eos # (Auto) 0.3 10^3/uL (0.0-0.7) 02/22/21 06:20 Baso # (Auto) 0.0 10^3/uL (0.0-0.1) 02/22/21 06:20 Absolute Nucleated RBC 0.00 x10^3/uL 02/22/21 06:20 Nucleated RBC % 0.0 /100WBC 02/22/21 06:20 Sodium 132 mmol/L (135-145) L 02/22/21 06:20 Potassium 3.7 mmol/L (3.5-5.0) 02/22/21 06:20 Chloride 99 mmol/L (101-111) L 02/22/21 06:20 Carbon Dioxide 21 mmol/L (21-32) 02/22/21 06:20 Anion Gap 12.0 (6-13) 02/22/21 06:20 BUN 9 mg/dL (6-20) 02/22/21 06:20 Creatinine 0.7 mg/dL (0.4-1.0) 02/22/21 06:20 Estimated GFR (MDRD) 88 (>89) L 02/22/21 06:20 Glucose 114 mg/dL (70-100) H 02/22/21 06:20 Lactic Acid 1.4 mmol/L (0.5-2.2) 02/15/21 22:36 Calcium 8.6 mg/dL (8.5-10.3) 02/22/21 06:20 Iron 13 ug/dL (28-170) L 02/17/21 04:25 TIBC 230 ug/dL (250-450) L 02/17/21 04:25 % Saturation 6 % (20-50) L 02/17/21 04:25 Transferrin 164 mg/dL (192-382) L 02/17/21 04:25 Total Bilirubin 0.5 mg/dL (0.2-1.0) 02/15/21 22:36 AST 12 IU/L (10-42) 02/15/21 22:36 ALT < 10 IU/L (10-60) L 02/15/21 22:36 Alkaline Phosphatase 86 IU/L (42-121) 02/15/21 22:36 Total Protein 7.5 g/dL (6.7-8.2) 02/15/21 22:36 Albumin 3.1 g/dL (3.2-5.5) L 02/15/21 22:36 Globulin 4.4 g/dL (2.1-4.2) H 02/15/21 22:36 Albumin/Globulin Ratio 0.7 (1.0-2.2) L 02/15/21 22:36 Lipase 27 U/L (22-51) 02/15/21 22:36 Nasal Adenovirus (PCR) NOT DETECTED 02/15/21 23:40 Nasal B. parapertussis DNA (PCR) NOT DETECTED 02/15/21 23:40 Nasal Coronavir 229E PCR NOT DETECTED 02/15/21 23:40 Nasal Coronavir HKU1 PCR NOT DETECTED 02/15/21 23:40 Nasal Coronavir NL63 PCR NOT DETECTED 02/15/21 23:40 Nasal Coronavir OC43 PCR NOT DETECTED 02/15/21 23:40 Nasal Enterovir/Rhinovir PCR NOT DETECTED 02/15/21 23:40 Nasal Influenza B PCR NOT DETECTED 02/15/21 23:40 Nasal Influenza A PCR NOT DETECTED 02/15/21 23:40 Nasal Parainfluen 1 PCR NOT DETECTED 02/15/21 23:40 Nasal Parainfluen 2 PCR NOT DETECTED 02/15/21 23:40 Nasal Parainfluen 3 PCR NOT DETECTED 02/15/21 23:40 Nasal Parainfluen 4 PCR NOT DETECTED 02/15/21 23:40 Nasal RSV (PCR) NOT DETECTED 02/15/21 23:40 Nasal B.pertussis DNA PCR NOT DETECTED 02/15/21 23:40 Nasal C.pneumoniae (PCR) NOT DETECTED 02/15/21 23:40 Pool Human Metapneumo PCR NOT DETECTED 02/15/21 23:40 Nasal M.pneumoniae (PCR) NOT DETECTED 02/15/21 23:40 Nasal SARS-CoV-2 (PCR) NOT DETECTED 02/15/21 23:40 - Procedures Procedures: Procedures VENOUS CATHETERIZATION NEC (06/02/14) ABX Reporting Has patient been on IV antibiotics over the past 48 hours?: Yes Current Medications - Current Medications Current Medications: Active Medications Acetaminophen (Acetaminophen 325 Mg Tablet) 650 mg PO Q4HR PRN PRN Reason: Pain or Fever > 38C (100.4F) Last Admin: 02/22/21 01:25 Dose: 650 mg Documented by: Aripiprazole (Aripiprazole 5 Mg Tablet) 20 mg PO DAILY [facility] Last Admin: 02/22/21 10:57 Dose: 20 mg Documented by: Bupropion HCl (Bupropion Sr 150 Mg Tablet) 150 mg PO BID [facility] Last Admin: 02/22/21 11:11 Dose: 150 mg Documented by: Ciprofloxacin (Ciprofloxacin 250 Mg Tablet) 500 mg PO BID [facility] Last Admin: 02/22/21 11:15 Dose: 500 mg Documented by: Citalopram Hydrobromide (Citalopram 10 Mg Tablet) 10 mg PO DAILY [facility] Last Admin: 02/22/21 11:14 Dose: 10 mg Documented by: Cyclobenzaprine HCl (Cyclobenzaprine 10 Mg Tablet) 10 mg PO TID PRN PRN Reason: Spasms Last Admin: 02/22/21 13:09 Dose: 10 mg Documented by: Enalapril Maleate (Enalapril 5 Mg Tablet) 5 mg PO DAILY [facility] Last Admin: 02/22/21 11:13 Dose: 5 mg Documented by: Ferrous Gluconate (Ferrous Gluconate 324 Mg Tablet) 324 mg PO DAILYWM [facility] Last Admin: 02/22/21 10:54 Dose: 324 mg Documented by: Hydrocortisone (Hydrocortisone 1% Ointment 28 Gm Tube) 1 applic TOP TID PRN PRN Reason: rash Hydroxyzine Pamoate (Hydroxyzine Pamoate 25 Mg Capsule) 0 mg PO DAILY PRN PRN Reason: ANXIETY Last Admin: 02/17/21 00:24 Dose: 25 mg Documented by: Hyoscyamine (Hyoscyamine Sl 0.125 Mg Tablet) 0.125 mg SL QID PRN PRN Reason: SPASMS Lactobacillus Rhamnosus (Lactobacillus Rhamnosus Gg Capsule) 1 cap PO DAILY [facility] Last Admin: 02/22/21 10:54 Dose: 1 cap Documented by: Loperamide HCl (Loperamide 2 Mg Capsule) 2 mg PO TID PRN PRN Reason: Diarrhea Meloxicam (Meloxicam 7.5 Mg Tablet) 15 mg PO DAILY [facility] Last Admin: 02/22/21 10:56 Dose: 15 mg Documented by: Multivitamins/Minerals (Multivitamin W/Minerals Tablet) 1 tab PO DAILYWM [facility] Last Admin: 02/22/21 11:15 Dose: 1 tab Documented by: Ondansetron HCl (Ondansetron 4 Mg/2 Ml Vial) 4 mg IVP Q6HR PRN PRN Reason: Nausea / Vomiting Ondansetron HCl (Ondansetron Odt 4 Mg Tablet) 4 mg TL Q4HR PRN PRN Reason: Nausea / Vomiting Last Admin: 02/18/21 01:32 Dose: 4 mg Documented by: Oxycodone HCl (Oxycodone 5 Mg Tablet) 5 mg PO Q8H PRN PRN Reason: PAIN Last Admin: 02/22/21 11:11 Dose: 5 mg Documented by: Pantoprazole Sodium (Pantoprazole 40 Mg Tablet) 40 mg PO BID [facility] Last Admin: 02/22/21 11:12 Dose: 40 mg Documented by: Polyethylene Glycol (Polyethylene Glycol 3350 17 Gm Packet) 17 gm PO DAILY [facility] Last Admin: 02/22/21 11:19 Dose: Not Given Documented by: Propranolol HCl (Propranolol 10 Mg Tablet) 20 mg PO TIDWM [facility] Last Admin: 02/22/21 13:11 Dose: 20 mg Documented by: Quetiapine Fumarate (Quetiapine 100 Mg Tablet) 300 mg PO QPM [facility] Last Admin: 02/21/21 20:55 Dose: 300 mg Documented by: Silver Sulfadiazine (Silver Sulfadiazine Cream 25 Gm Tube) 1 applic TOP BID [facility] Last Admin: 02/22/21 11:04 Dose: 1 applic Documented by: Solifenacin (Solifenacin Succinate 10 Mg Tablet) 10 mg PO DAILY [facility] Last Admin: 02/22/21 11:10 Dose: 10 mg Documented by: Topiramate (Topiramate 25 Mg Tablet) 25 mg PO BID [facility] Last Admin: 02/22/21 11:20 Dose: 25 mg Documented by: Wheat Dextrin (Wheat Dextrin Powder Packet) 1 packet PO DAILY PRN PRN Reason: Constipation Last Admin: 02/21/21 08:07 Dose: 1 packet Documented by: Zolpidem Tartrate (Zolpidem 5 Mg Tablet) 10 mg PO QPM PRN PRN Reason: Insomnia Last Admin: 02/18/21 20:03 Dose: 10 mg Documented by: Propranolol [Inderal] 20 mg PO TID 04/27/13 Enalapril [Vasotec] 5 mg ORAL DAILY 05/14/14 Citalopram Hydrobromide [Celexa] 10 mg PO DAILY 08/22/16 Oxybutynin Chloride [Ditropan Xl] 10 mg PO DAILY 01/23/17 Quetiapine Fumarate [Seroquel Xr] 300 mg PO DAILY PM 01/23/17 oxyCODONE/ACET 5/325 [Percocet 5 mg/325 mg] 1 tab PO BID MDD 2 03/16/17 Zolpidem Tartrate [Ambien] 10 mg PO QPM PRN 06/05/17 ARIPiprazole [Abilify] 20 mg PO DAILY 08/28/17 Hydrocortisone 1% Oint [Hydrocortisone] 1 gm TP TID PRN 08/28/17 hydrOXYzine pamoate [Hydroxyzine Pamoate] 25 mg PO DAILY PRN 07/09/18 Loperamide [Imodium] 2 mg PO TID PRN 04/29/19 Cranberry 1 tab PO DAILY 06/22/20 Albuterol Sulf [Ventolin Hfa Inhaler] 2 puffs INH Q4HR PRN 02/16/21 Dexlansoprazole [Dexilant] 30 mg PO DAILY 02/16/21 Famotidine [Pepcid] 20 mg PO DAILY 02/16/21 Ferrous Sulfate 325 mg PO BIDWM 02/16/21 Hyoscyamine [Levsin] 0.125 mg SL BID PRN 02/16/21 Loratadine [Claritin] 10 mg PO DAILY 02/16/21 Meloxicam [Mobic] 15 mg PO DAILY 02/16/21 buPROPion [Wellbutrin Xl] 150 mg PO DAILY 02/16/21
[2021-02-22] MEDS: ONDANSETRON ODT 4 MG TABLET TL PRN (17:25)
[2021-02-22] MEDS: QUEtiapine 100 MG TABLET PO SCH (22:23)
[2021-02-23] MEDS: CYCLOBENZAPRINE 10 MG TABLET PO PRN ×3 (00:44→17:25)
[2021-02-23] MEDS: ACETAMINOPHEN 325 MG TABLET PO PRN (03:21)
[2021-02-23 07:42] LABS: BASOPHILS % (AUTO) 0.5 %; EOSINOPHILS # (AUTO) 0.3 10^3/uL (0.0-0.7); HCT - HEMATOCRIT 34.1 % (37.0-47.0); HGB - HEMOGLOBIN 10.2 g/dL (12.0-16.0); LYMPHOCYTES # (AUTO) 1.4 10^3/uL (1.5-3.5); LYMPHOCYTES % (AUTO) 23.8 %; MEAN CORPUSCULAR HGB CONC 29.9 g/dL (32.0-36.0); MEAN CORPUSCULAR VOLUME 80.2 fL (81.0-99.0); MEAN PLATELET VOLUME 9.6 fL (7.9-10.8); MONOCYTES # (AUTO) 0.7 10^3/uL (0.0-1.0); MONOCYTES % (AUTO) 10.8 %; NEUTROPHILS # (AUTO) 3.6 10^3/uL (1.5-6.6); NEUTROPHILS % (AUTO) 59.6 %; PLT - PLATELET COUNT 366 10^3/uL (130-450); RED BLOOD COUNT 4.25 10^6/uL (4.20-5.40); RED CELL DISTRIBUTION WIDTH 17.9 % (12.0-15.0)
[2021-02-23 07:53] LABS: CALCIUM 8.7 mg/dL (8.5-10.3); CREATININE 0.8 mg/dL (0.4-1.0); POTASSIUM 3.8 mmol/L (3.5-5.0)
[2021-02-23] MEDS: ARIPiprazole 5 MG TABLET PO SCH (08:53)
[2021-02-23] MEDS: CITALOPRAM 10 MG TABLET PO SCH (08:54)
[2021-02-23] MEDS: FERROUS GLUCONATE 324 MG TABLET PO SCH (08:55)
[2021-02-23] MEDS: PROPRANOLOL 10 MG TABLET PO SCH ×3 (08:55→17:25)
[2021-02-23] MEDS: oxyCODONE 5 MG TABLET PO PRN (08:56)
[2021-02-23] MEDS: TOPIRAMATE 25 MG TABLET PO SCH ×2 (08:56→21:10)
[2021-02-23] MEDS: LACTOBACILLUS RHAMNOSUS GG CAPSULE PO SCH (08:57)
[2021-02-23] MEDS: CIPROFLOXACIN 250 MG TABLET PO SCH ×2 (08:57→21:10)
[2021-02-23] MEDS: ONDANSETRON ODT 4 MG TABLET TL PRN (08:58)
[2021-02-23] MEDS: buPROPion SR 150 MG TABLET PO SCH ×2 (08:59→21:10)
[2021-02-23] MEDS: PANTOPRAZOLE 40 MG TABLET PO SCH ×2 (09:00→21:10)
[2021-02-23] MEDS: ENALAPRIL 5 MG TABLET PO SCH (09:01)
[2021-02-23] MEDS: MELOXICAM 7.5 MG TABLET PO SCH (09:01)
[2021-02-23] MEDS: SOLIFENACIN SUCCINATE 10 MG TABLET PO SCH (09:01)
[2021-02-23] MEDS: SILVER SULFADIAZINE CREAM 25 GM TUBE TOP SCH ×2 (09:02→21:10)
[2021-02-23] MEDS: polyethylene glycoL 3350 17 GM PACKET PO SCH (09:02)
[2021-02-23] MEDS: MULTIVITAMIN W/MINERALS TABLET PO SCH (09:07)
--- NOTE | 2021-02-23 20:47 | PROVIDER PROGRESS NOTE ---
Subjective - Prog Note Date Prog Note Date: 02/23/21 Prog Note Time: 20:47 - Subjective Subjective: she has chronic pain and indicates it's stable. pain is in joings and muscles. Current Medications - Current Medications Current Medications: Active Medications Acetaminophen (Acetaminophen 325 Mg Tablet) 650 mg PO Q4HR PRN PRN Reason: Pain or Fever > 38C (100.4F) Last Admin: 02/23/21 03:21 Dose: 650 mg Documented by: Aripiprazole (Aripiprazole 5 Mg Tablet) 20 mg PO DAILY [facility] Last Admin: 02/23/21 08:53 Dose: 20 mg Documented by: Bupropion HCl (Bupropion Sr 150 Mg Tablet) 150 mg PO BID [facility] Last Admin: 02/23/21 08:59 Dose: 150 mg Documented by: Ciprofloxacin (Ciprofloxacin 250 Mg Tablet) 500 mg PO BID [facility] Last Admin: 02/23/21 08:57 Dose: 500 mg Documented by: Citalopram Hydrobromide (Citalopram 10 Mg Tablet) 10 mg PO DAILY [facility] Last Admin: 02/23/21 08:54 Dose: 10 mg Documented by: Cyclobenzaprine HCl (Cyclobenzaprine 10 Mg Tablet) 10 mg PO TID PRN PRN Reason: Spasms Last Admin: 02/23/21 17:25 Dose: 10 mg Documented by: Enalapril Maleate (Enalapril 5 Mg Tablet) 5 mg PO DAILY [facility] Last Admin: 02/23/21 09:01 Dose: 5 mg Documented by: Ferrous Gluconate (Ferrous Gluconate 324 Mg Tablet) 324 mg PO DAILYWM [facility] Last Admin: 02/23/21 08:55 Dose: 324 mg Documented by: Hydrocortisone (Hydrocortisone 1% Ointment 28 Gm Tube) 1 applic TOP TID PRN PRN Reason: rash Hydroxyzine Pamoate (Hydroxyzine Pamoate 25 Mg Capsule) 0 mg PO DAILY PRN PRN Reason: ANXIETY Last Admin: 02/17/21 00:24 Dose: 25 mg Documented by: Hyoscyamine (Hyoscyamine Sl 0.125 Mg Tablet) 0.125 mg SL QID PRN PRN Reason: SPASMS Lactobacillus Rhamnosus (Lactobacillus Rhamnosus Gg Capsule) 1 cap PO DAILY [facility] Last Admin: 02/23/21 08:57 Dose: 1 cap Documented by: Loperamide HCl (Loperamide 2 Mg Capsule) 2 mg PO TID PRN PRN Reason: Diarrhea Meloxicam (Meloxicam 7.5 Mg Tablet) 15 mg PO DAILY [facility] Last Admin: 02/23/21 09:01 Dose: 15 mg Documented by: Multivitamins/Minerals (Multivitamin W/Minerals Tablet) 1 tab PO DAILYWM [facility] Last Admin: 02/23/21 09:07 Dose: 1 tab Documented by: Ondansetron HCl (Ondansetron 4 Mg/2 Ml Vial) 4 mg IVP Q6HR PRN PRN Reason: Nausea / Vomiting Ondansetron HCl (Ondansetron Odt 4 Mg Tablet) 4 mg TL Q4HR PRN PRN Reason: Nausea / Vomiting Last Admin: 02/23/21 08:58 Dose: 4 mg Documented by: Oxycodone HCl (Oxycodone 5 Mg Tablet) 5 mg PO Q8H PRN PRN Reason: PAIN Last Admin: 02/23/21 08:56 Dose: 5 mg Documented by: Pantoprazole Sodium (Pantoprazole 40 Mg Tablet) 40 mg PO BID [facility] Last Admin: 02/23/21 09:00 Dose: 40 mg Documented by: Polyethylene Glycol (Polyethylene Glycol 3350 17 Gm Packet) 17 gm PO DAILY [facility] Last Admin: 02/23/21 09:02 Dose: Not Given Documented by: Propranolol HCl (Propranolol 10 Mg Tablet) 20 mg PO TIDWM [facility] Last Admin: 02/23/21 17:25 Dose: 20 mg Documented by: Quetiapine Fumarate (Quetiapine 100 Mg Tablet) 300 mg PO QPM [facility] Last Admin: 02/22/21 22:23 Dose: 300 mg Documented by: Silver Sulfadiazine (Silver Sulfadiazine Cream 25 Gm Tube) 1 applic TOP BID [facility] Last Admin: 02/23/21 09:02 Dose: 1 applic Documented by: Solifenacin (Solifenacin Succinate 10 Mg Tablet) 10 mg PO DAILY [facility] Last Admin: 02/23/21 09:01 Dose: 10 mg Documented by: Topiramate (Topiramate 25 Mg Tablet) 25 mg PO BID [facility] Last Admin: 02/23/21 08:56 Dose: 25 mg Documented by: Wheat Dextrin (Wheat Dextrin Powder Packet) 1 packet PO DAILY PRN PRN Reason: Constipation Last Admin: 02/21/21 08:07 Dose: 1 packet Documented by: Zolpidem Tartrate (Zolpidem 5 Mg Tablet) 10 mg PO QPM PRN PRN Reason: Insomnia Last Admin: 02/18/21 20:03 Dose: 10 mg Documented by: Propranolol [Inderal] 20 mg PO TID 04/27/13 Enalapril [Vasotec] 5 mg ORAL DAILY 05/14/14 Citalopram Hydrobromide [Celexa] 10 mg PO DAILY 08/22/16 Oxybutynin Chloride [Ditropan Xl] 10 mg PO DAILY 01/23/17 Quetiapine Fumarate [Seroquel Xr] 300 mg PO DAILY PM 01/23/17 oxyCODONE/ACET 5/325 [Percocet 5 mg/325 mg] 1 tab PO BID MDD 2 03/16/17 Zolpidem Tartrate [Ambien] 10 mg PO QPM PRN 06/05/17 ARIPiprazole [Abilify] 20 mg PO DAILY 08/28/17 Hydrocortisone 1% Oint [Hydrocortisone] 1 gm TP TID PRN 08/28/17 hydrOXYzine pamoate [Hydroxyzine Pamoate] 25 mg PO DAILY PRN 07/09/18 Loperamide [Imodium] 2 mg PO TID PRN 04/29/19 Cranberry 1 tab PO DAILY 06/22/20 Albuterol Sulf [Ventolin Hfa Inhaler] 2 puffs INH Q4HR PRN 02/16/21 Dexlansoprazole [Dexilant] 30 mg PO DAILY 02/16/21 Famotidine [Pepcid] 20 mg PO DAILY 02/16/21 Ferrous Sulfate 325 mg PO BIDWM 02/16/21 Hyoscyamine [Levsin] 0.125 mg SL BID PRN 02/16/21 Loratadine [Claritin] 10 mg PO DAILY 02/16/21 Meloxicam [Mobic] 15 mg PO DAILY 02/16/21 buPROPion [Wellbutrin Xl] 150 mg PO DAILY 02/16/21 Objective - Vital Signs/Intake & Output Reviewed Vital Signs: Yes Vital Signs: Vital Signs x48h Temp Pulse Resp BP Pulse Ox 02/23/21 17:15 36.2 C L 77 16 124/73 97 Intake & Output: Intake & Output 02/20/21 02/21/21 02/22/2121 23:59 23:59 23:59 23:59 Intake Total 934 971 8410 950 Output Total 0278 9700 2355 6625 Balance -6995 -7696 -074 -7500 - Objective General Appearance: positive: No acute distress, Alert, Other (5'2" 96.1 kg with contractures of LE) Eyes Bilateral: positive: PERRL ENT: positive: No signs of dehydration Neck: positive: No JVD. negative: Stiff neck Respiratory: positive: No respiratory distress. negative: Wheezes, Rales, Rhonchi Cardiovascular: positive: Regular rate & rhythm, Systolic murmur. negative: Gallop/S4, Friction rub Abdomen: positive: Non-tender, No organomegaly, Nml bowel sounds, No distention Skin: positive: Other (ulcers are healing over her buttocks, mild ecchymoses of arms) Extremities: positive: Pedal edema (mild of LE), Other (ankles are in permanet dorsiflexion and outturned.) Neurologic/Psychiatric: positive: Oriented x3, CN's nml (2-12). negative: Motor nml (spastic movements, able to use her cell phone to talk to family) - Lab Results Fish Bones: 02/23/21 07:23 02/23/21 07:23 Other Labs: Lab Results x24hrs 02/23/21 02/23/21 Range/Units 07:23 07:23 WBC 6.0 (4.8-10.8) x10^3/uL RBC 4.25 (4.20-5.40) 10^6/uL Hgb 10.2 L (12.0-16.0) g/dL Hct 34.1 L (37.0-47.0) % MCV 80.2 L (81.0-99.0) fL MCH 24.0 L (27.0-31.0) pg MCHC 29.9 L (32.0-36.0) g/dL RDW 17.9 H (12.0-15.0) % Plt Count 366 (130-450) 10^3/uL MPV 9.6 (7.9-10.8) fL Neut # (Auto) 3.6 (1.5-6.6) 10^3/uL Lymph # (Auto) 1.4 L (1.5-3.5) 10^3/uL [place] # (Auto) 0.7 (0.0-1.0) 10^3/uL Eos # (Auto) 0.3 (0.0-0.7) 10^3/uL Baso # (Auto) 0.0 (0.0-0.1) 10^3/uL Absolute Nucleated RBC 0.00 x10^3/uL Nucleated RBC % 0.0 /100WBC Sodium 133 L (135-145) mmol/L Potassium 3.8 (3.5-5.0) mmol/L Chloride 101 (101-111) mmol/L Carbon Dioxide 22 (21-32) mmol/L Anion Gap 10.0 (6-13) BUN 10 (6-20) mg/dL Creatinine 0.8 (0.4-1.0) mg/dL Estimated GFR (MDRD) 76 L (>89) Glucose 122 H (70-100) mg/dL Calcium 8.7 (8.5-10.3) mg/dL ABX Reporting Has patient been on IV antibiotics over the past 48 hours?: Yes Assessment/Plan - Problem List (1) Sacral decubitus ulcer Impression: Qualifiers: Pressure injury stage: unstageable Qualified Code(s): L89.150 - Pressure ulcer of sacral region, unstageable Assessment/Plan: On admission, she had close to almost complete loss of skin on both buttocks. On the right buttock she then had 4 spots of irregular lost down to fat and m uscle. On the left buttock she had dime-sized spots inferiorly, one large area that was 3 x 4 cm. Photos were updated February 19. She has had definite improvement with the diffuse skin loss in both buttocks. The ulcers that were down to muscle and fat have improved. (2) Cellulitis of buttock Assessment/Plan: has also improved. She was initially on ceftriaxone, Diflucan, Zosyn. Augmentin. Macrobid. Currently she has been on Cipro. Unclear why there was multiple antibiotic changes. (3) Cerebral palsy Assessment/Plan: stable, pt had Foot braces in place and minimizing pressure on back. We are seeking placement for this patient. She is medically stable and social work has been working diligently to find a detention facility willing to take her. (4) Neurogenic bladder stable, On dexilant and oxybutynin Suprapubic catheter was changed in the ED prior to admission (5) Depression Assessment/Plan: On bupropion and citalopram (6) HTN (hypertension) Assessment/Plan: stable, On enalapril and propanolol (7) Anemia, iron deficient Assessment/Plan: Hemoglobin on admission was 9.6. Today she is 10.1. Ferrous gluconate 324mg po daily with meals ordered (8) Lymphedema stable, continue Nils bandages changed today and skin care (9)Bipolar Continue home medication Abilify and Topamax.
[2021-02-23] MEDS: QUEtiapine 100 MG TABLET PO SCH (21:10)
[2021-02-24] MEDS: CYCLOBENZAPRINE 10 MG TABLET PO PRN ×2 (05:40→21:42)
[2021-02-24] MEDS: SILVER SULFADIAZINE CREAM 25 GM TUBE TOP SCH ×2 (06:02→20:27)
[2021-02-24] MEDS: ONDANSETRON ODT 4 MG TABLET TL PRN (08:41)
[2021-02-24] MEDS: MELOXICAM 7.5 MG TABLET PO SCH (08:42)
[2021-02-24] MEDS: TOPIRAMATE 25 MG TABLET PO SCH ×2 (08:42→20:27)
[2021-02-24] MEDS: buPROPion SR 150 MG TABLET PO SCH ×2 (08:43→20:27)
[2021-02-24] MEDS: ENALAPRIL 5 MG TABLET PO SCH (08:43)
[2021-02-24] MEDS: FERROUS GLUCONATE 324 MG TABLET PO SCH (08:44)
[2021-02-24] MEDS: MULTIVITAMIN W/MINERALS TABLET PO SCH (08:44)
[2021-02-24] MEDS: oxyCODONE 5 MG TABLET PO PRN (08:44)
[2021-02-24] MEDS: LACTOBACILLUS RHAMNOSUS GG CAPSULE PO SCH (08:45)
[2021-02-24] MEDS: ARIPiprazole 5 MG TABLET PO SCH (08:45)
[2021-02-24] MEDS: PANTOPRAZOLE 40 MG TABLET PO SCH (08:45)
[2021-02-24] MEDS: PROPRANOLOL 10 MG TABLET PO SCH ×3 (08:47→17:38)
[2021-02-24] MEDS: SOLIFENACIN SUCCINATE 10 MG TABLET PO SCH (08:47)
[2021-02-24] MEDS: WHEAT DEXTRIN POWDER PACKET PO PRN (08:48)
[2021-02-24] MEDS: CITALOPRAM 10 MG TABLET PO SCH (08:50)
[2021-02-24] MEDS: CIPROFLOXACIN 250 MG TABLET PO SCH ×2 (08:50→20:27)
[2021-02-24] MEDS: polyethylene glycoL 3350 17 GM PACKET PO SCH (08:54)
[2021-02-24] MEDS: QUEtiapine 100 MG TABLET PO SCH (20:27)
--- NOTE | 2021-02-24 22:32 | PROVIDER PROGRESS NOTE ---
Subjective - Prog Note Date Prog Note Date: 02/24/21 Prog Note Time: 22:30 - Subjective Pt reports feeling: No change Subjective: She was seen at change of shift. She was comfortable, same amount of discomfort with pain. Was feeling like she was heading in the right direction. She has been looking at the pictures of her buttocks and is pleased with the progress were her buttock decubiti are slowly healing. She describes being chair bound and bedbound. Her caregivers come every day when she does not understand how her skin broke down if she is getting adequate skin care at home. She is looking forward to going home. Is anxious about a half-way facility. But she recognizes she needs some type of strength exercise because she has been bedbound for even a couple of weeks before she came into the hospital. But she cannot tell me why she went to bed and could not get up out of bed to a chair. She would like to return to the baseline status of being able to sit up in a chair. No chest pain, no palpitations, no shortness of breath. For comfort she really likes the SCDs and she would like them on more often than they are now. Current Medications - Current Medications Current Medications: Active Medications Acetaminophen (Acetaminophen 325 Mg Tablet) 650 mg PO Q4HR PRN PRN Reason: Pain or Fever > 38C (100.4F) Last Admin: 02/23/21 03:21 Dose: 650 mg Documented by: Aripiprazole (Aripiprazole 5 Mg Tablet) 20 mg PO DAILY [facility] Last Admin: 02/24/21 08:45 Dose: 20 mg Documented by: Bupropion HCl (Bupropion Sr 150 Mg Tablet) 150 mg PO BID [facility] Last Admin: 02/24/21 20:27 Dose: 150 mg Documented by: Ciprofloxacin (Ciprofloxacin 250 Mg Tablet) 500 mg PO BID [facility] Last Admin: 02/24/21 20:27 Dose: 500 mg Documented by: Citalopram Hydrobromide (Citalopram 10 Mg Tablet) 10 mg PO DAILY [facility] Last Admin: 02/24/21 08:50 Dose: 10 mg Documented by: Cyclobenzaprine HCl (Cyclobenzaprine 10 Mg Tablet) 10 mg PO TID PRN PRN Reason: Spasms Last Admin: 02/24/21 21:42 Dose: 10 mg Documented by: Enalapril Maleate (Enalapril 5 Mg Tablet) 5 mg PO DAILY [facility] Last Admin: 02/24/21 08:43 Dose: 5 mg Documented by: Ferrous Gluconate (Ferrous Gluconate 324 Mg Tablet) 324 mg PO DAILYWM [facility] Last Admin: 02/24/21 08:44 Dose: 324 mg Documented by: Hydrocortisone (Hydrocortisone 1% Ointment 28 Gm Tube) 1 applic TOP TID PRN PRN Reason: rash Hydroxyzine Pamoate (Hydroxyzine Pamoate 25 Mg Capsule) 0 mg PO DAILY PRN PRN Reason: ANXIETY Last Admin: 02/17/21 00:24 Dose: 25 mg Documented by: Hyoscyamine (Hyoscyamine Sl 0.125 Mg Tablet) 0.125 mg SL QID PRN PRN Reason: SPASMS Lactobacillus Rhamnosus (Lactobacillus Rhamnosus Gg Capsule) 1 cap PO DAILY [facility] Last Admin: 02/24/21 08:45 Dose: 1 cap Documented by: Loperamide HCl (Loperamide 2 Mg Capsule) 2 mg PO TID PRN PRN Reason: Diarrhea Meloxicam (Meloxicam 7.5 Mg Tablet) 15 mg PO DAILY [facility] Last Admin: 02/24/21 08:42 Dose: 15 mg Documented by: Multivitamins/Minerals (Multivitamin W/Minerals Tablet) 1 tab PO DAILYWM [facility] Last Admin: 02/24/21 08:44 Dose: 1 tab Documented by: Ondansetron HCl (Ondansetron 4 Mg/2 Ml Vial) 4 mg IVP Q6HR PRN PRN Reason: Nausea / Vomiting Ondansetron HCl (Ondansetron Odt 4 Mg Tablet) 4 mg TL Q4HR PRN PRN Reason: Nausea / Vomiting Last Admin: 02/24/21 08:41 Dose: 4 mg Documented by: Oxycodone HCl (Oxycodone 5 Mg Tablet) 5 mg PO Q8H PRN PRN Reason: PAIN Last Admin: 02/24/21 08:44 Dose: 5 mg Documented by: Dexilant 30mg 1 each PO DAILY [facility] Polyethylene Glycol (Polyethylene Glycol 3350 17 Gm Packet) 17 gm PO DAILY [facility] Last Admin: 02/24/21 08:54 Dose: Not Given Documented by: Propranolol HCl (Propranolol 10 Mg Tablet) 20 mg PO TIDWM [facility] Last Admin: 02/24/21 17:38 Dose: 20 mg Documented by: Quetiapine Fumarate (Quetiapine 100 Mg Tablet) 300 mg PO QPM [facility] Last Admin: 02/24/21 20:27 Dose: 300 mg Documented by: Silver Sulfadiazine (Silver Sulfadiazine Cream 25 Gm Tube) 1 applic TOP BID [facility] Last Admin: 02/24/21 20:27 Dose: 1 applic Documented by: Solifenacin (Solifenacin Succinate 10 Mg Tablet) 10 mg PO DAILY [facility] Last Admin: 02/24/21 08:47 Dose: 10 mg Documented by: Topiramate (Topiramate 25 Mg Tablet) 25 mg PO BID [facility] Last Admin: 02/24/21 20:27 Dose: 25 mg Documented by: Wheat Dextrin (Wheat Dextrin Powder Packet) 1 packet PO DAILY PRN PRN Reason: Constipation Last Admin: 02/24/21 08:48 Dose: 1 packet Documented by: Zolpidem Tartrate (Zolpidem 5 Mg Tablet) 10 mg PO QPM PRN PRN Reason: Insomnia Last Admin: 02/18/21 20:03 Dose: 10 mg Documented by: Propranolol [Inderal] 20 mg PO TID 04/27/13 Enalapril [Vasotec] 5 mg ORAL DAILY 05/14/14 Citalopram Hydrobromide [Celexa] 10 mg PO DAILY 08/22/16 Oxybutynin Chloride [Ditropan Xl] 10 mg PO DAILY 01/23/17 Quetiapine Fumarate [Seroquel Xr] 300 mg PO DAILY PM 01/23/17 oxyCODONE/ACET 5/325 [Percocet 5 mg/325 mg] 1 tab PO BID MDD 2 03/16/17 Zolpidem Tartrate [Ambien] 10 mg PO QPM PRN 06/05/17 ARIPiprazole [Abilify] 20 mg PO DAILY 08/28/17 Hydrocortisone 1% Oint [Hydrocortisone] 1 gm TP TID PRN 08/28/17 hydrOXYzine pamoate [Hydroxyzine Pamoate] 25 mg PO DAILY PRN 07/09/18 Loperamide [Imodium] 2 mg PO TID PRN 04/29/19 Cranberry 1 tab PO DAILY 06/22/20 Albuterol Sulf [Ventolin Hfa Inhaler] 2 puffs INH Q4HR PRN 02/16/21 Dexlansoprazole [Dexilant] 30 mg PO DAILY 02/16/21 Famotidine [Pepcid] 20 mg PO DAILY 02/16/21 Ferrous Sulfate 325 mg PO BIDWM 02/16/21 Hyoscyamine [Levsin] 0.125 mg SL BID PRN 02/16/21 Loratadine [Claritin] 10 mg PO DAILY 02/16/21 Meloxicam [Mobic] 15 mg PO DAILY 02/16/21 buPROPion [Wellbutrin Xl] 150 mg PO DAILY 02/16/21 Objective - Vital Signs/Intake & Output Reviewed Vital Signs: Yes Vital Signs: Vital Signs x48h Temp Pulse Resp BP BP Pulse Ox 02/24/21 17:47 72 114/72 02/24/21 16:00 36.3 C L 64 18 107/65 95 Intake & Output: Intake & Output 02/21/21 02/22/21 02/23/21 02/24/21 23:59 23:59 23:59 23:59 Intake Total 920 1400 114 7027 Output Total 2150 1775 3495 1875 Balance -123239 -4856 285 - Objective General Appearance: positive: No acute distress, Alert, Other (Watching TV, comfortable in bed) Eyes Bilateral: positive: PERRL, Other (Eyes somewhat protuberant but no definitive exophthalmos.). negative: EOMI (Right eye deviation. She can look straight at me with a conjugate gaze, but when she turns her head or gazes in the distance, the right eye deviates laterally.) ENT: positive: No signs of dehydration Neck: positive: No JVD. negative: Stiff neck Respiratory: positive: No respiratory distress. negative: Wheezes, Rales, Rhonchi Cardiovascular: positive: Regular rate & rhythm. negative: Gallop/S4, Friction rub Abdomen: positive: Non-tender, No organomegaly, Nml bowel sounds Skin: positive: Warm, Dry, Pallor Extremities: positive: Pedal edema, Other (Slight contractures at hips, knees. She cannot fully extend. Dorsiflexion at ankles that is permanent. Onychomycosis of the toenails. Feet inverted. Fingers on hands splayed, occasional jerking movements.) Neurologic/Psychiatric: positive: Oriented x3. negative: CN's nml (2-12), Motor nml Comments/Other: No change in buttock skin since yesterday. Overall and looking at the pictures from admission into now, the peeling of her skin which was extensive on both bilateral buttocks has almost completely gone away and she has intact coverage. She did have decubiti with in that large circumferential skin loss that were dime sized or 3 cm size. Somewhere down to muscle. Those are also healing from what I can see in comparison to those pictures and today. - Lab Results Fish Bones: 02/23/21 07:23 02/23/21 07:23 ABX Reporting Has patient been on IV antibiotics over the past 48 hours?: Yes Assessment/Plan - Problem List (1) Sacral decubitus ulcer Impression: Qualifiers: Pressure injury stage: unstageable Qualified Code(s): L89.150 - Pressure ulcer of sacral region, unstageable Assessment/Plan: On admission, she had close to almost complete loss of skin on both buttocks. On the right buttock she then had 4 spots of irregular lost down to fat and muscle. On the left buttock she had dime-sized spots inferiorly, one large area that was 3 x 4 cm. Photos were updated February 19. She has had definite improvement with the diffuse skin loss in both buttocks. The ulcers that were down to muscle and fat have improved.No changes today. (2) Cellulitis of buttock Assessment/Plan: has also improved. She was initially on ceftriaxone, Diflucan, Zosyn. Augmentin. Macrobid. Currently she has been on Cipro. Unclear why there was multiple antibiotic changes.Today is day 10 of antibiotics. I will be stopping them since the overall appearance of cellulitis/redness/heat around her decubiti has resolved. (3) Cerebral palsy Assessment/Plan: stable, pt had Foot braces in place and minimizing pressure on back. We are seeking placement for this patient. She is medically stable and social work has been working diligently to find a half-way facility willing to take her.I am not clear if this is a permanent placement. 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 Or if this is a temporary rehab goal to then return to home. (4) Neurogenic bladder stable, On dexilant and oxybutynin Suprapubic catheter was changed in the ED prior to admission (5) Depression Assessment/Plan: On bupropion and citalopram. Some tearfulness today. She is anxious about going to a half-way facility. (6) HTN (hypertension) Assessment/Plan: stable, On enalapril and propanolol (7) Anemia, iron deficient Assessment/Plan: Hemoglobin on admission was 9.6. Today she is 10.1. Ferrous gluconate 324mg po daily with meals ordered (8) Lymphedema stable, continue Nils bandages changed today and skin care (9)Bipolar Continue home medication Abilify and Topamax.
[2021-02-25] MEDS: oxyCODONE 5 MG TABLET PO PRN ×2 (00:32→12:40)
[2021-02-25] MEDS: ACETAMINOPHEN 325 MG TABLET PO PRN ×2 (00:32→12:41)
[2021-02-25] MEDS: FERROUS GLUCONATE 324 MG TABLET PO SCH (09:00)
[2021-02-25] MEDS: MULTIVITAMIN W/MINERALS TABLET PO SCH (09:00)
[2021-02-25] MEDS: PROPRANOLOL 10 MG TABLET PO SCH ×3 (09:02→18:55)
[2021-02-25] MEDS: ARIPiprazole 5 MG TABLET PO SCH (09:03)
[2021-02-25] MEDS: buPROPion SR 150 MG TABLET PO SCH ×2 (09:05→21:23)
[2021-02-25] MEDS: CIPROFLOXACIN 250 MG TABLET PO SCH (09:05)
[2021-02-25] MEDS: ENALAPRIL 5 MG TABLET PO SCH (09:06)
[2021-02-25] MEDS: LACTOBACILLUS RHAMNOSUS GG CAPSULE PO SCH (09:06)
[2021-02-25] MEDS: TOPIRAMATE 25 MG TABLET PO SCH ×2 (09:06→21:23)
[2021-02-25] MEDS: SOLIFENACIN SUCCINATE 10 MG TABLET PO SCH (09:06)
[2021-02-25] MEDS: CITALOPRAM 10 MG TABLET PO SCH (09:06)
[2021-02-25] MEDS: MELOXICAM 7.5 MG TABLET PO SCH (09:15)
[2021-02-25] MEDS: polyethylene glycoL 3350 17 GM PACKET PO SCH (10:51)
[2021-02-25] MEDS: SILVER SULFADIAZINE CREAM 25 GM TUBE TOP SCH ×2 (11:03→21:25)
[2021-02-25] MEDS: WHEAT DEXTRIN POWDER PACKET PO PRN (12:41)
--- NOTE | 2021-02-25 20:39 | PROVIDER PROGRESS NOTE ---
Subjective - Prog Note Date Prog Note Date: 02/25/21 Prog Note Time: 20:37 - Subjective Pt reports feeling: No change Subjective: mom is at the bedside. questions about when a SNF will take her daughter and why won't they take her. patient denies new pain or discomfort. Even though she asked for SCDs, in the end, she didn't want them bc they hurt her neuropathy too much. no sob, no cough. Current Medications - Current Medications Current Medications: Active Medications Acetaminophen (Acetaminophen 325 Mg Tablet) 650 mg PO Q4HR PRN PRN Reason: Pain or Fever > 38C (100.4F) Last Admin: 02/25/21 12:41 Dose: 650 mg Documented by: Aripiprazole (Aripiprazole 5 Mg Tablet) 20 mg PO DAILY [facility] Last Admin: 02/25/21 09:03 Dose: 20 mg Documented by: Bupropion HCl (Bupropion Sr 150 Mg Tablet) 150 mg PO BID [facility] Last Admin: 02/25/21 09:05 Dose: 150 mg Documented by: Ciprofloxacin (Ciprofloxacin 250 Mg Tablet) 500 mg PO BID [facility] Last Admin: 02/25/21 09:05 Dose: 500 mg Documented by: Citalopram Hydrobromide (Citalopram 10 Mg Tablet) 10 mg PO DAILY [facility] Last Admin: 02/25/21 09:06 Dose: 10 mg Documented by: Cyclobenzaprine HCl (Cyclobenzaprine 10 Mg Tablet) 10 mg PO TID PRN PRN Reason: Spasms Last Admin: 02/24/21 21:42 Dose: 10 mg Documented by: Enalapril Maleate (Enalapril 5 Mg Tablet) 5 mg PO DAILY [facility] Last Admin: 02/25/21 09:06 Dose: 5 mg Documented by: Ferrous Gluconate (Ferrous Gluconate 324 Mg Tablet) 324 mg PO QDLUNCH [facility] Hydrocortisone (Hydrocortisone 1% Ointment 28 Gm Tube) 1 applic TOP TID PRN PRN Reason: rash Hydroxyzine Pamoate (Hydroxyzine Pamoate 25 Mg Capsule) 0 mg PO DAILY PRN PRN Reason: ANXIETY Last Admin: 02/17/21 00:24 Dose: 25 mg Documented by: Hyoscyamine (Hyoscyamine Sl 0.125 Mg Tablet) 0.125 mg SL QID PRN PRN Reason: SPASMS Lactobacillus Rhamnosus (Lactobacillus Rhamnosus Gg Capsule) 1 cap PO DAILY [facility] Last Admin: 02/25/21 09:06 Dose: 1 cap Documented by: Loperamide HCl (Loperamide 2 Mg Capsule) 2 mg PO TID PRN PRN Reason: Diarrhea Meloxicam (Meloxicam 7.5 Mg Tablet) 15 mg PO DAILY [facility] Last Admin: 02/25/21 09:15 Dose: 15 mg Documented by: Multivitamins/Minerals (Multivitamin W/Minerals Tablet) 1 tab PO QDLUNCH [facility] Ondansetron HCl (Ondansetron 4 Mg/2 Ml Vial) 4 mg IVP Q6HR PRN PRN Reason: Nausea / Vomiting Ondansetron HCl (Ondansetron Odt 4 Mg Tablet) 4 mg TL Q4HR PRN PRN Reason: Nausea / Vomiting Last Admin: 02/24/21 08:41 Dose: 4 mg Documented by: Oxycodone HCl (Oxycodone 5 Mg Tablet) 5 mg PO Q8H PRN PRN Reason: PAIN Last Admin: 02/25/21 12:40 Dose: 5 mg Documented by: Dexilant 30mg 1 each PO DAILY [facility] Last Admin: 02/25/21 09:07 Dose: 1 each Documented by: Polyethylene Glycol (Polyethylene Glycol 3350 17 Gm Packet) 17 gm PO DAILY [facility] Last Admin: 02/25/21 10:51 Dose: Not Given Documented by: Propranolol HCl (Propranolol 10 Mg Tablet) 20 mg PO TIDWM [facility] Last Admin: 02/25/21 18:55 Dose: Not Given Documented by: Quetiapine Fumarate (Quetiapine 100 Mg Tablet) 300 mg PO QPM [facility] Last Admin: 02/24/21 20:27 Dose: 300 mg Documented by: Silver Sulfadiazine (Silver Sulfadiazine Cream 25 Gm Tube) 1 applic TOP BID [facility] Last Admin: 02/25/21 11:03 Dose: 1 applic Documented by: Solifenacin (Solifenacin Succinate 10 Mg Tablet) 10 mg PO DAILY [facility] Last Admin: 02/25/21 09:06 Dose: 10 mg Documented by: Topiramate (Topiramate 25 Mg Tablet) 25 mg PO BID [facility] Last Admin: 02/25/21 09:06 Dose: 25 mg Documented by: Wheat Dextrin (Wheat Dextrin Powder Packet) 1 packet PO DAILY PRN PRN Reason: Constipation Last Admin: 02/25/21 12:41 Dose: 1 packet Documented by: Zolpidem Tartrate (Zolpidem 5 Mg Tablet) 10 mg PO QPM PRN PRN Reason: Insomnia Last Admin: 02/18/21 20:03 Dose: 10 mg Documented by: Propranolol [Inderal] 20 mg PO TID 04/27/13 Enalapril [Vasotec] 5 mg ORAL DAILY 05/14/14 Citalopram Hydrobromide [Celexa] 10 mg PO DAILY 08/22/16 Oxybutynin Chloride [Ditropan Xl] 10 mg PO DAILY 01/23/17 Quetiapine Fumarate [Seroquel Xr] 300 mg PO DAILY PM 01/23/17 oxyCODONE/ACET 5/325 [Percocet 5 mg/325 mg] 1 tab PO BID [facility] 2 03/16/17 Zolpidem Tartrate [Ambien] 10 mg PO QPM PRN 06/05/17 ARIPiprazole [Abilify] 20 mg PO DAILY 08/28/17 Hydrocortisone 1% Oint [Hydrocortisone] 1 gm TP TID PRN 08/28/17 hydrOXYzine pamoate [Hydroxyzine Pamoate] 25 mg PO DAILY PRN 07/09/18 Loperamide [Imodium] 2 mg PO TID PRN 04/29/19 Cranberry 1 tab PO DAILY 06/22/20 Albuterol Sulf [Ventolin Hfa Inhaler] 2 puffs INH Q4HR PRN 02/16/21 Dexlansoprazole [Dexilant] 30 mg PO DAILY 02/16/21 Famotidine [Pepcid] 20 mg PO DAILY 02/16/21 Ferrous Sulfate 325 mg PO BIDWM 02/16/21 Hyoscyamine [Levsin] 0.125 mg SL BID PRN 02/16/21 Loratadine [Claritin] 10 mg PO DAILY 02/16/21 Meloxicam [Mobic] 15 mg PO DAILY 02/16/21 buPROPion [Wellbutrin Xl] 150 mg PO DAILY 02/16/21 Objective - Vital Signs/Intake & Output Reviewed Vital Signs: Yes Vital Signs: Vital Signs x48h Temp Pulse Resp BP BP Pulse Ox 02/25/21 16:00 36.5 C 65 16 92/56 L 97/53 L 96 Intake & Output: Intake & Output 02/22/21 02/23/21 02/24/21 02/25/21 23:59 23:59 23:59 23:59 Intake Total 5245 465 3664 780 Output Total 1775 6725 1875 900 Balance -239 -1825 285 -120 - Objective General Appearance: positive: No acute distress, Alert Eyes Bilateral: positive: PERRL, Conjunctivae nml, No scleral icterus. negative: EOMI (R eye w lateral EOM deviation.) ENT: positive: No signs of dehydration Neck: positive: No JVD. negative: Stiff neck Respiratory: positive: No respiratory distress. negative: Wheezes, Rales, Rhonchi Cardiovascular: positive: Regular rate & rhythm. negative: Gallop/S4, Friction rub Abdomen: positive: Non-tender, No organomegaly, Nml bowel sounds, No distention Skin: positive: Warm, Dry, Pallor, Other (decubiti on buttocks healing from admit to now. Nursing documenting w photos.) Extremities: positive: Pedal edema (mild) Neurologic/Psychiatric: positive: Oriented x3, Other (EOM deviation. spastic movement with splayed fingers of both hands. chronic dorsiflexion of feet. voice occ dystonic.) - Lab Results Fish Bones: 02/23/21 07:23 02/23/21 07:23 ABX Reporting Has patient been on IV antibiotics over the past 48 hours?: Yes Assessment/Plan - Problem List (1) Sacral decubitus ulcer Impression: On admission, she had close to almost complete loss of skin on both buttocks. On the right buttock she then had 4 spots of irregular lost down to fat and muscle. On the left buttock she had dime-sized spots inferiorly, one large area that was 3 x 4 cm. Photos were updated February 19. She has had definite improvement with the diffuse skin loss significantly improved in both buttocks. The ulcers that were down to muscle and fat have improved in that no longer as deep. No changes today. for 2 days now. (2) Cellulitis of buttock Assessment/Plan: has also improved. She was initially on ceftriaxone, Diflucan, Zosyn. Augmentin. Macrobid. Currently she has been on Cipro 6 days now. Unclear why there was multiple antibiotic changes.Today is day 10 of antibiotics. I will be stopping today since the overall appearance of cellulitis/redness/heat around her decubiti has resolved. (3) Cerebral palsy Assessment/Plan: stable, pt had Foot braces in place and minimizing pressure on back. We are seeking placement for this patient. She is medically stable and social work has been working diligently to find a shelter facility willing to take her. This is not a permanent placement. 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 After discussion with [facility], the plan is SNF for wound care. then to return to home with new caregivers. (4) Neurogenic bladder stable, On dexilant and oxybutynin Suprapubic catheter was changed in the ED prior to admission (5) Depression Assessment/Plan: On bupropion and citalopram. Some tearfulness again today. She is anxious about going to a shelter facility. She doesn't like them and realizes that her future, as she gets older/more disabled, may require she go there permanently. She hates that idea and is angry a tthat. (6) HTN (hypertension) Assessment/Plan: stable, On enalapril and propanolol (7) Anemia, iron deficient Assessment/Plan: Hemoglobin on admission was 9.6. Last checked 02/23 and she was 10.2 Ferrous gluconate 324mg po daily with meals ordered Will followup on labs 02/26 but do not check daily, no need to do so. (8) Lymphedema stable, continue Nils bandages changed today and skin care. SCDs as tolerated at her request. (9)Bipolar Continue home medication Abilify and Topamax.
[2021-02-25] MEDS: QUEtiapine 100 MG TABLET PO SCH (21:23)
[2021-02-26] MEDS: oxyCODONE 5 MG TABLET PO PRN ×2 (02:07→18:09)
[2021-02-26] MEDS: ACETAMINOPHEN 325 MG TABLET PO PRN ×2 (05:27→18:10)
[2021-02-26] MEDS: PROPRANOLOL 10 MG TABLET PO SCH ×3 (07:56→18:19)
[2021-02-26] MEDS: LACTOBACILLUS RHAMNOSUS GG CAPSULE PO SCH (08:41)
[2021-02-26] MEDS: buPROPion SR 150 MG TABLET PO SCH ×2 (08:41→22:21)
[2021-02-26] MEDS: ARIPiprazole 5 MG TABLET PO SCH (08:41)
[2021-02-26] MEDS: MELOXICAM 7.5 MG TABLET PO SCH (08:41)
[2021-02-26] MEDS: SILVER SULFADIAZINE CREAM 25 GM TUBE TOP SCH ×2 (08:42→22:21)
[2021-02-26] MEDS: CITALOPRAM 10 MG TABLET PO SCH (08:42)
[2021-02-26] MEDS: polyethylene glycoL 3350 17 GM PACKET PO SCH (08:42)
[2021-02-26] MEDS: ENALAPRIL 5 MG TABLET PO SCH (08:42)
[2021-02-26] MEDS: SOLIFENACIN SUCCINATE 10 MG TABLET PO SCH (08:47)
[2021-02-26] MEDS: TOPIRAMATE 25 MG TABLET PO SCH ×2 (08:47→22:21)
[2021-02-26] MEDS: ENOXAPARIN 40 MG/0.4 ML SYRINGE SUBQ SCH (11:45)
[2021-02-26] MEDS: FERROUS GLUCONATE 324 MG TABLET PO SCH (11:46)
[2021-02-26] MEDS: MULTIVITAMIN W/MINERALS TABLET PO SCH (11:46)
[2021-02-26] MEDS: WHEAT DEXTRIN POWDER PACKET PO PRN (12:35)
--- NOTE | 2021-02-26 14:34 | PROVIDER PROGRESS NOTE ---
Assessment/Plan - Problem List (1) Sacral decubitus ulcer Assessment/Plan: improved. there are five location loss of skin, 4 small size, one has area about 3-3cm, There is no palpitable tenderness in these area. We will consult with the surgeon, will continue with Silvadene, continue skin care, continue turn and reposition for pt, pt has hx of cerebral palsy, she can not take care of her skin problem. Continue consult with social work for disposition planning (2) Cellulitis of buttock Assessment/Plan: We treated the patient for 10 days antibiotics, According to patient wound culture and sensitivity study. Patient has no acute tenderness, warmness, has normal range WBC patient has no fever. 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 (6) HTN (hypertension) Assessment/Plan: stable, On enalapril and propanolol (7) Anemia, iron deficient Assessment/Plan: Hemoglobin stable, (8) Lymphedema stable, continue Nils bandages changed today and skin care. SCDs as tolerated at her request. (9)Bipolar Continue home medication Abilify and Topamax. - Current Meds Current Meds: Current Medications Generic Name Dose Route Start Last Admin Trade Name Freq PRN Reason Stop Dose Admin Acetaminophen 650 mg 02/15/21 23:26 02/26/21 05:27 Acetaminophen 325 Mg Tablet PO 650 mg Q4HR PRN Administration Pain or Fever > 38C (100.4F) Aripiprazole 20 mg 02/16/21 09:00 02/26/21 08:41 Aripiprazole 5 Mg Tablet PO 20 mg DAILY KRAIG Administration Bupropion HCl 150 mg 02/16/21 09:00 02/26/21 08:41 Bupropion Sr 150 Mg Tablet PO 150 mg BID KRAIG Administration Citalopram Hydrobromide 10 mg 02/16/21 09:00 02/26/21 08:42 Citalopram 10 Mg Tablet PO 10 mg DAILY KRAIG Administration Cyclobenzaprine HCl 10 mg 02/20/21 11:27 02/24/21 21:42 Cyclobenzaprine 10 Mg Tablet PO 10 mg TID PRN Administration Spasms Enalapril Maleate 5 mg 02/16/21 09:00 02/26/21 08:42 Enalapril 5 Mg Tablet PO 5 mg DAILY KRAIG Administration Enoxaparin Sodium 40 mg 02/26/21 11:00 02/26/21 11:45 Enoxaparin 40 Mg/0.4 Ml Syringe SUBQ 40 mg DAILY KRAIG Administration Ferrous Gluconate 324 mg 02/26/21 12:00 02/26/21 11:46 Ferrous Gluconate 324 Mg Tablet PO 324 mg QDLUNCH KRAIG Administration Hydroxyzine Pamoate 0 mg 02/15/21 23:34 02/17/21 00:24 Hydroxyzine Pamoate 25 Mg Capsule PO 25 mg DAILY PRN Administration ANXIETY Lactobacillus Rhamnosus 1 cap 02/21/21 09:00 02/26/21 08:41 Lactobacillus Rhamnosus Gg Capsule PO 1 cap DAILY KRAIG Administration Meloxicam 15 mg 02/18/21 13:00 02/26/21 08:41 Meloxicam 7.5 Mg Tablet PO 15 mg DAILY KRAIG Administration Multivitamins/Minerals 1 tab 02/26/21 12:00 02/26/21 11:46 Multivitamin W/Minerals Tablet PO 1 tab QDLUNCH [facility] Administration Ondansetron HCl 4 mg 02/18/21 01:21 02/24/21 08:41 Ondansetron Odt 4 Mg Tablet TL 4 mg Q4HR PRN Administration Nausea / Vomiting Oxycodone HCl 5 mg 02/16/21 01:57 02/26/21 02:07 Oxycodone 5 Mg Tablet PO 5 mg Q8H PRN Administration PAIN Dexilant 30mg 1 each 02/25/21 09:00 02/26/21 08:57 PO Not Given DAILY [facility] Polyethylene Glycol 17 gm 02/17/21 09:00 02/26/21 08:42 Polyethylene Glycol 3350 17 Gm Packet PO 17 gm DAILY [facility] Administration Propranolol HCl 20 mg 02/16/21 08:00 02/26/21 11:46 Propranolol 10 Mg Tablet PO 20 mg TIDWM KRAIG Administration Quetiapine Fumarate 300 mg 02/16/21 21:00 02/25/21 21:23 Quetiapine 100 Mg Tablet PO 300 mg QPM KRAIG Administration Silver Sulfadiazine 1 applic 02/16/21 14:35 02/26/21 08:42 Silver Sulfadiazine Cream 25 Gm Tube TOP 1 applic BID KRAIG Administration Solifenacin 10 mg 02/16/21 09:00 02/26/21 08:47 Solifenacin Succinate 10 Mg Tablet PO 10 mg DAILY KRAIG Administration Topiramate 25 mg 02/16/21 09:00 02/26/21 08:47 Topiramate 25 Mg Tablet PO 25 mg BID KRAIG Administration Wheat Dextrin 1 packet 02/18/21 10:23 02/26/21 12:35 Wheat Dextrin Powder Packet PO 1 packet DAILY PRN Administration Constipation Zolpidem Tartrate 10 mg 02/16/21 00:48 02/18/21 20:03 Zolpidem 5 Mg Tablet PO 10 mg QPM PRN Administration Insomnia - Lab Result Fish Bone Diagrams: 02/23/21 07:23 02/23/21 07:23 - Additional Planning My Orders: My Active Orders 02/26/21 11:00 Enoxaparin [Lovenox] 40 mg SUBQ DAILY 02/26/21 12:00 Multivitamin W/Minerals [Theragran M] 1 tab PO QDLUNCH Subjective - Subjective Patient Reports: Feeling Better Objective Vital Signs: Vital Signs - 24 hr 02/25/21 02/26/21 02/26/21 16:00 00:35 05:45 Temperature 36.5 C 37.1 C 36.6 C Heart Rate [ 65 67 63 Brachial] Respiratory 16 16 20 Rate Blood Pressure 108/70 [Left Brachial artery] Blood Pressure 92/56 L [Left Radial artery] Blood Pressure 97/53 L [Right Brachial artery] Blood Pressure 91/55 L [Right Radial artery] O2 Saturation 96 97 98 02/26/21 07:59 Temperature 36.4 C L Heart Rate [ 63 Brachial] Respiratory 16 Rate Blood Pressure [Left Brachial artery] Blood Pressure [Left Radial artery] Blood Pressure 99/55 L [Right Brachial artery] Blood Pressure [Right Radial artery] O2 Saturation 97 Oxygen O2 Source Room air I&O (Last 24 Hrs): Intake and Output Totals x24h 02/24/21 02/25/21 02/26/21 23:59 23:59 23:59 Intake Total 2160 1130 240 Output Total 1875 1275 400 Balance 285 -145 -160 General: Alert, Oriented x3, Cooperative, No acute distress HEENT: Atraumatic Neck: Supple Lymphatic: no adenopathy Neuro: Alert, Non Focal, Oriented Times 3 Cardiovascular: Regular rate, Normal S1, Normal S2 Respiratory: Chest non-tender, No respiratory distress Abdomen: Normal bowel sounds, Soft, No tenderness Extremities: Normal pulses - Results Results: Laboratory Results WBC 6.0 x10^3/uL (4.8-10.8) 02/23/21 07:23 RBC 4.25 10^6/uL (4.20-5.40) 02/23/21 07:23 Hgb 10.2 g/dL (12.0-16.0) L 02/23/21 07:23 Hct 34.1 % (37.0-47.0) L 02/23/21 07:23 MCV 80.2 fL (81.0-99.0) L 02/23/21 07:23 MCH 24.0 pg (27.0-31.0) L 02/23/21 07:23 MCHC 29.9 g/dL (32.0-36.0) L 02/23/21 07:23 RDW 17.9 % (12.0-15.0) H 02/23/21 07:23 Plt Count 366 10^3/uL (130-450) 02/23/21 07:23 MPV 9.6 fL (7.9-10.8) 02/23/21 07:23 Neut # (Auto) 3.6 10^3/uL (1.5-6.6) 02/23/21 07:23 Lymph # (Auto) 1.4 10^3/uL (1.5-3.5) L 02/23/21 07:23 Taliaferro # (Auto) 0.7 10^3/uL (0.0-1.0) 02/23/21 07:23 Eos # (Auto) 0.3 10^3/uL (0.0-0.7) 02/23/21 07:23 Baso # (Auto) 0.0 10^3/uL (0.0-0.1) 02/23/21 07:23 Absolute Nucleated RBC 0.00 x10^3/uL 02/23/21 07: Nucleated RBC % 0.0 /100WBC 02/23/21 07:23 Sodium 133 mmol/L (135-145) L 02/23/21 07:23 Potassium 3.8 mmol/L (3.5-5.0) 02/23/21 07:23 Chloride 101 mmol/L (101-111) 02/23/21 07:23 Carbon Dioxide 22 mmol/L (21-32) 02/23/21 07:23 Anion Gap 10.0 (6-13) 02/23/21 07:23 BUN 10 mg/dL (6-20) 02/23/21 07:23 Creatinine 0.8 mg/dL (0.4-1.0) 02/23/21 07:23 Estimated GFR (MDRD) 76 (>89) L 02/23/21 07:23 Glucose 122 mg/dL (70-100) H 02/23/21 07:23 Lactic Acid 1.4 mmol/L (0.5-2.2) 02/15/21 22:36 Calcium 8.7 mg/dL (8.5-10.3) 02/23/21 07:23 Iron 13 ug/dL (28-170) L 02/17/21 04:25 TIBC 230 ug/dL (250-450) L 02/17/21 04:25 % Saturation 6 % (20-50) L 02/17/21 04:25 Transferrin 164 mg/dL (192-382) L 02/17/21 04:25 Total Bilirubin 0.5 mg/dL (0.2-1.0) 02/15/21 22:36 AST 12 IU/L (10-42) 02/15/21 22:36 ALT < 10 IU/L (10-60) L 02/15/21 22:36 Alkaline Phosphatase 86 IU/L (42-121) 02/15/21 22:36 Total Protein 7.5 g/dL (6.7-8.2) 02/15/21 22:36 Albumin 3.1 g/dL (3.2-5.5) L 02/15/21 22:36 Globulin 4.4 g/dL (2.1-4.2) H 02/15/21 22:36 Albumin/Globulin Ratio 0.7 (1.0-2.2) L 02/15/21 22:36 Lipase 27 U/L (22-51) 02/15/21 22:36 Nasal Adenovirus (PCR) NOT DETECTED 02/15/21 23:40 Nasal B. parapertussis DNA (PCR) NOT DETECTED 02/15/21 23:40 Nasal Coronavir 229E PCR NOT DETECTED 02/15/21 23:40 Nasal Coronavir HKU1 PCR NOT DETECTED 02/15/21 23:40 Nasal Coronavir NL63 PCR NOT DETECTED 02/15/21 23:40 Nasal Coronavir OC43 PCR NOT DETECTED 02/15/21 23:40 Nasal Enterovir/Rhinovir PCR NOT DETECTED 02/15/21 23:40 Nasal Influenza B PCR NOT DETECTED 02/15/21 23:40 Nasal Influenza A PCR NOT DETECTED 02/15/21 23:40 Nasal Parainfluen 1 PCR NOT DETECTED 02/15/21 23:40 Nasal Parainfluen 2 PCR NOT DETECTED 02/15/21 23:40 Nasal Parainfluen 3 PCR NOT DETECTED 02/15/21 23:40 Nasal Parainfluen 4 PCR NOT DETECTED 02/15/21 23:40 Nasal RSV (PCR) NOT DETECTED 02/15/21 23:40 Nasal B.pertussis DNA PCR NOT DETECTED 02/15/21 23:40 Nasal C.pneumoniae (PCR) NOT DETECTED 02/15/21 23:40 Pool Human Metapneumo PCR NOT DETECTED 02/15/21 23:40 Nasal M.pneumoniae (PCR) NOT DETECTED 02/15/21 23:40 Nasal SARS-CoV-2 (PCR) NOT DETECTED 02/15/21 23:40 - Procedures Procedures: Procedures VENOUS CATHETERIZATION NEC (06/02/14) ABX Reporting Has patient been on IV antibiotics over the past 48 hours?: No Current Medications - Current Medications Current Medications: Active Medications Acetaminophen (Acetaminophen 325 Mg Tablet) 650 mg PO Q4HR PRN PRN Reason: Pain or Fever > 38C (100.4F) Last Admin: 02/26/21 05:27 Dose: 650 mg Documented by: Aripiprazole (Aripiprazole 5 Mg Tablet) 20 mg PO DAILY [facility] Last Admin: 02/26/21 08:41 Dose: 20 mg Documented by: Bupropion HCl (Bupropion Sr 150 Mg Tablet) 150 mg PO BID [facility] Last Admin: 02/26/21 08:41 Dose: 150 mg Documented by: Citalopram Hydrobromide (Citalopram 10 Mg Tablet) 10 mg PO DAILY [facility] Last Admin: 02/26/21 08:42 Dose: 10 mg Documented by: Cyclobenzaprine HCl (Cyclobenzaprine 10 Mg Tablet) 10 mg PO TID PRN PRN Reason: Spasms Last Admin: 02/24/21 21:42 Dose: 10 mg Documented by: Enalapril Maleate (Enalapril 5 Mg Tablet) 5 mg PO DAILY [facility] Last Admin: 02/26/21 08:42 Dose: 5 mg Documented by: Enoxaparin Sodium (Enoxaparin 40 Mg/0.4 Ml Syringe) 40 mg SUBQ DAILY [facility] Last Admin: 02/26/21 11:45 Dose: 40 mg Documented by: Ferrous Gluconate (Ferrous Gluconate 324 Mg Tablet) 324 mg PO QDLUNCH [facility] Last Admin: 02/26/21 11:46 Dose: 324 mg Documented by: Hydrocortisone (Hydrocortisone 1% Ointment 28 Gm Tube) 1 applic TOP TID PRN PRN Reason: rash Hydroxyzine Pamoate (Hydroxyzine Pamoate 25 Mg Capsule) 0 mg PO DAILY PRN PRN Reason: ANXIETY Last Admin: 02/17/21 00:24 Dose: 25 mg Documented by: Hyoscyamine (Hyoscyamine Sl 0.125 Mg Tablet) 0.125 mg SL QID PRN PRN Reason: SPASMS Lactobacillus Rhamnosus (Lactobacillus Rhamnosus Gg Capsule) 1 cap PO DAILY [facility] Last Admin: 02/26/21 08:41 Dose: 1 cap Documented by: Loperamide HCl (Loperamide 2 Mg Capsule) 2 mg PO TID PRN PRN Reason: Diarrhea Meloxicam (Meloxicam 7.5 Mg Tablet) 15 mg PO DAILY [facility] Last Admin: 02/26/21 08:41 Dose: 15 mg Documented by: Multivitamins/Minerals (Multivitamin W/Minerals Tablet) 1 tab PO QDLUNCH [facility] Last Admin: 02/26/21 11:46 Dose: 1 tab Documented by: Ondansetron HCl (Ondansetron 4 Mg/2 Ml Vial) 4 mg IVP Q6HR PRN PRN Reason: Nausea / Vomiting Ondansetron HCl (Ondansetron Odt 4 Mg Tablet) 4 mg TL Q4HR PRN PRN Reason: Nausea / Vomiting Last Admin: 02/24/21 08:41 Dose: 4 mg Documented by: Oxycodone HCl (Oxycodone 5 Mg Tablet) 5 mg PO Q8H PRN PRN Reason: PAIN Last Admin: 02/26/21 02:07 Dose: 5 mg Documented by: Dexilant 30mg 1 each PO DAILY [facility] Last Admin: 02/26/21 08:57 Dose: Not Given Documented by: Polyethylene Glycol (Polyethylene Glycol 3350 17 Gm Packet) 17 gm PO DAILY [facility] Last Admin: 02/26/21 08:42 Dose: 17 gm Documented by: Propranolol HCl (Propranolol 10 Mg Tablet) 20 mg PO TIDWM [facility] Last Admin: 02/26/21 11:46 Dose: 20 mg Documented by: Quetiapine Fumarate (Quetiapine 100 Mg Tablet) 300 mg PO QPM [facility] Last Admin: 02/25/21 21:23 Dose: 300 mg Documented by: Silver Sulfadiazine (Silver Sulfadiazine Cream 25 Gm Tube) 1 applic TOP BID [facility] Last Admin: 02/26/21 08:42 Dose: 1 applic Documented by: Solifenacin (Solifenacin Succinate 10 Mg Tablet) 10 mg PO DAILY [facility] Last Admin: 02/26/21 08:47 Dose: 10 mg Documented by: Topiramate (Topiramate 25 Mg Tablet) 25 mg PO BID [facility] Last Admin: 02/26/21 08:47 Dose: 25 mg Documented by: Wheat Dextrin (Wheat Dextrin Powder Packet) 1 packet PO DAILY PRN PRN Reason: Constipation Last Admin: 02/26/21 12:35 Dose: 1 packet Documented by: Zolpidem Tartrate (Zolpidem 5 Mg Tablet) 10 mg PO QPM PRN PRN Reason: Insomnia Last Admin: 02/18/21 20:03 Dose: 10 mg Documented by: Propranolol [Inderal] 20 mg PO TID 04/27/13 Enalapril [Vasotec] 5 mg ORAL DAILY 05/14/14 Citalopram Hydrobromide [Celexa] 10 mg PO DAILY 08/22/16 Oxybutynin Chloride [Ditropan Xl] 10 mg PO DAILY 01/23/17 Quetiapine Fumarate [Seroquel Xr] 300 mg PO DAILY PM 01/23/17 oxyCODONE/ACET 5/325 [Percocet 5 mg/325 mg] 1 tab PO BID MDD 2 03/16/17 Zolpidem Tartrate [Ambien] 10 mg PO QPM PRN 06/05/17 ARIPiprazole [Abilify] 20 mg PO DAILY 08/28/17 Hydrocortisone 1% Oint [Hydrocortisone] 1 gm TP TID PRN 08/28/17 hydrOXYzine pamoate [Hydroxyzine Pamoate] 25 mg PO DAILY PRN 07/09/18 Loperamide [Imodium] 2 mg PO TID PRN 04/29/19 Cranberry 1 tab PO DAILY 06/22/20 Albuterol Sulf [Ventolin Hfa Inhaler] 2 puffs INH Q4HR PRN 02/16/21 Dexlansoprazole [Dexilant] 30 mg PO DAILY 02/16/21 Famotidine [Pepcid] 20 mg PO DAILY 02/16/21 Ferrous Sulfate 325 mg PO BIDWM 02/16/21 Hyoscyamine [Levsin] 0.125 mg SL BID PRN 02/16/21 Loratadine [Claritin] 10 mg PO DAILY 02/16/21 Meloxicam [Mobic] 15 mg PO DAILY 02/16/21 buPROPion [Wellbutrin Xl] 150 mg PO DAILY 02/16/21
[2021-02-26] MEDS: QUEtiapine 100 MG TABLET PO SCH (22:20)
[2021-02-27] MEDS: CYCLOBENZAPRINE 10 MG TABLET PO PRN ×2 (00:18→21:53)
[2021-02-27] MEDS: oxyCODONE 5 MG TABLET PO PRN ×2 (05:49→11:33)
[2021-02-27] MEDS: PROPRANOLOL 10 MG TABLET PO SCH ×3 (08:01→17:34)
[2021-02-27] MEDS: ENOXAPARIN 40 MG/0.4 ML SYRINGE SUBQ SCH (08:41)
[2021-02-27] MEDS: WHEAT DEXTRIN POWDER PACKET PO PRN (08:41)
[2021-02-27] MEDS: buPROPion SR 150 MG TABLET PO SCH ×2 (08:42→21:53)
[2021-02-27] MEDS: CITALOPRAM 10 MG TABLET PO SCH (08:42)
[2021-02-27] MEDS: ARIPiprazole 5 MG TABLET PO SCH (08:42)
[2021-02-27] MEDS: LACTOBACILLUS RHAMNOSUS GG CAPSULE PO SCH (08:42)
[2021-02-27] MEDS: TOPIRAMATE 25 MG TABLET PO SCH ×2 (08:43→21:53)
[2021-02-27] MEDS: polyethylene glycoL 3350 17 GM PACKET PO SCH (08:43)
[2021-02-27] MEDS: MELOXICAM 7.5 MG TABLET PO SCH (08:43)
[2021-02-27] MEDS: SOLIFENACIN SUCCINATE 10 MG TABLET PO SCH (09:30)
[2021-02-27] MEDS: SILVER SULFADIAZINE CREAM 25 GM TUBE TOP SCH ×2 (09:31→21:53)
[2021-02-27 10:00] LABS: BASOPHILS % (AUTO) 0.8 %; EOSINOPHILS # (AUTO) 0.3 10^3/uL (0.0-0.7); EOSINOPHILS % (AUTO) 5.5 %; HCT - HEMATOCRIT 32.9 % (37.0-47.0); HGB - HEMOGLOBIN 10.1 g/dL (12.0-16.0); LYMPHOCYTES # (AUTO) 1.2 10^3/uL (1.5-3.5); LYMPHOCYTES % (AUTO) 23.1 %; MEAN CORPUSCULAR HEMOGLOBIN 25.1 pg (27.0-31.0); MEAN CORPUSCULAR HGB CONC 30.7 g/dL (32.0-36.0); MEAN CORPUSCULAR VOLUME 81.6 fL (81.0-99.0); MEAN PLATELET VOLUME 9.7 fL (7.9-10.8); MONOCYTES # (AUTO) 0.6 10^3/uL (0.0-1.0); MONOCYTES % (AUTO) 11.9 %; NEUTROPHILS # (AUTO) 3.1 10^3/uL (1.5-6.6); NEUTROPHILS % (AUTO) 58.3 %; PLT - PLATELET COUNT 328 10^3/uL (130-450); RED BLOOD COUNT 4.03 10^6/uL (4.20-5.40); RED CELL DISTRIBUTION WIDTH 19.3 % (12.0-15.0); WHITE BLOOD COUNT 5.3 x10^3/uL (4.8-10.8)
[2021-02-27 10:07] LABS: CALCIUM 8.8 mg/dL (8.5-10.3); CREATININE 0.6 mg/dL (0.4-1.0); POTASSIUM 3.9 mmol/L (3.5-5.0)
[2021-02-27] MEDS: FERROUS GLUCONATE 324 MG TABLET PO SCH (11:33)
[2021-02-27] MEDS: MULTIVITAMIN W/MINERALS TABLET PO SCH (11:33)
[2021-02-27] MEDS ORDERED: LIDOCAINE 2% URO-JET 5 ML SYRINGE UR ONE (14:06)
--- NOTE | 2021-02-27 15:15 | PROVIDER PROGRESS NOTE ---
Assessment/Plan - Problem List (1) Sacral decubitus ulcer Assessment/Plan: 02/27 check pt's wound with nurse/MOLDER SETTER, improved slightly, continue with Silvadene cream per surgeon, continue skin care, continue turn and reposition for pt. pt has hx of cerebral palsy, she can not take care of herself for her wound. Consult with social work for disposition and safety planning. Patient is prescribed Roho gel chair pad [id number], powered mattress pressure reducing overlay [id number] for pt's skin care in the home. improved. there are five location loss of skin, 4 small size, one has area about 3-3cm, There is no palpitable tenderness in these area. We will consult with the surgeon, will continue with Silvadene, continue skin care, continue turn and reposition for pt, pt has hx of cerebral palsy, she can not take care of her skin problem. Continue consult with social work for disposition planning (2) Cellulitis of buttock Assessment/Plan: 02/27 Continue skin care, Turn and reposition for patient. We treated the patient for 10 days antibiotics, According to patient wound culture and sensitivity study. Patient has no acute tenderness, warmness, has normal range WBC patient has no fever. 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 (6) HTN (hypertension) Assessment/Plan: stable, On enalapril and propanolol (7) Anemia, iron deficient Assessment/Plan: Hemoglobin stable, (8) Lymphedema stable, continue Nils bandages changed today and skin care. SCDs as tolerated at her request. (9)Bipolar Continue home medication Abilify and Topamax. - Current Meds Current Meds: Current Medications Generic Name Dose Route Start Last Admin Trade Name Freq PRN Reason Stop Dose Admin Acetaminophen 650 mg 02/15/21 23:26 02/26/21 18:10 Acetaminophen 325 Mg Tablet PO 650 mg Q4HR PRN Administration Pain or Fever > 38C (100.4F) Aripiprazole 20 mg 02/16/21 09:00 02/27/21 08:42 Aripiprazole 5 Mg Tablet PO 20 mg DAILY KRAIG Administration Bupropion HCl 150 mg 02/16/21 09:00 02/27/21 08:42 Bupropion Sr 150 Mg Tablet PO 150 mg BID KRAIG Administration Citalopram Hydrobromide 10 mg 02/16/21 09:00 02/27/21 08:42 Citalopram 10 Mg Tablet PO 10 mg DAILY KRAIG Administration Cyclobenzaprine HCl 10 mg 02/20/21 11:27 02/27/21 00:18 Cyclobenzaprine 10 Mg Tablet PO 10 mg TID PRN Administration Spasms Enoxaparin Sodium 40 mg 02/26/21 11:00 02/27/21 08:41 Enoxaparin 40 Mg/0.4 Ml Syringe SUBQ 40 mg DAILY KRAIG Administration Ferrous Gluconate 324 mg 02/26/21 12:00 02/27/21 11:33 Ferrous Gluconate 324 Mg Tablet PO 324 mg QDLUNCH KRAIG Administration Hydroxyzine Pamoate 0 mg 02/15/21 23:34 02/17/21 00:24 Hydroxyzine Pamoate 25 Mg Capsule PO 25 mg DAILY PRN Administration ANXIETY Lactobacillus Rhamnosus 1 cap 02/21/21 09:00 02/27/21 08:42 Lactobacillus Rhamnosus Gg Capsule PO 1 cap DAILY KRAIG Administration Meloxicam 15 mg 02/18/21 13:00 02/27/21 08:43 Meloxicam 7.5 Mg Tablet PO 15 mg DAILY KRAIG Administration Multivitamins/Minerals 1 tab 02/26/21 12:00 02/27/21 11:33 Multivitamin W/Minerals Tablet PO 1 tab QDLUNCH KRAIG Administration Ondansetron HCl 4 mg 02/18/21 01:21 02/24/21 08:41 Ondansetron Odt 4 Mg Tablet TL 4 mg Q4HR PRN Administration Nausea / Vomiting Oxycodone HCl 5 mg 02/16/21 01:57 02/27/21 11:33 Oxycodone 5 Mg Tablet PO 5 mg Q8H PRN Administration PAIN Dexilant 30mg 1 each 02/25/21 09:00 02/27/21 08:43 PO 1 each DAILY KRAIG Administration Polyethylene Glycol 17 gm 02/17/21 09:00 02/27/21 08:43 Polyethylene Glycol 3350 17 Gm Packet PO 17 gm DAILY KRAIG Administration Propranolol HCl 20 mg 02/16/21 08:00 02/27/21 11:35 Propranolol 10 Mg Tablet PO 20 mg TIDWM KRAIG Administration Quetiapine Fumarate 300 mg 02/16/21 21:00 02/26/21 22:20 Quetiapine 100 Mg Tablet PO 300 mg QPM KRAIG Administration Silver Sulfadiazine 1 applic 02/16/21 14:35 02/27/21 09:31 Silver Sulfadiazine Cream 25 Gm Tube TOP 1 applic BID KRAIG Administration Solifenacin 10 mg 02/16/21 09:00 02/27/21 09:30 Solifenacin Succinate 10 Mg Tablet PO 10 mg DAILY KRAIG Administration Topiramate 25 mg 02/16/21 09:00 02/27/21 08:43 Topiramate 25 Mg Tablet PO 25 mg BID KRAIG Administration Wheat Dextrin 1 packet 02/18/21 10:23 02/27/21 08:41 Wheat Dextrin Powder Packet PO 1 packet DAILY PRN Administration Constipation Zolpidem Tartrate 10 mg 02/16/21 00:48 02/18/21 20:03 Zolpidem 5 Mg Tablet PO 10 mg QPM PRN Administration Insomnia - Lab Result Fish Bone Diagrams: 02/27/21 09:55 02/27/21 09:55 - Additional Planning My Orders: My Active Orders 02/27/21 11:21 Miscellaenous Nursing Order [RC] ONCE 02/28/21 05:00 BMP - BASIC METABOLIC PANEL [CHEM] DAILYLAB CBC - COMP BLD CT W/AUTO DIFF [HEME] DAILYLAB 03/01/21 05:00 BMP - BASIC METABOLIC PANEL [CHEM] DAILYLAB CBC - COMP BLD CT W/AUTO DIFF [HEME] DAILYLAB Subjective - Subjective Patient Reports: Feeling Better Objective Vital Signs: Vital Signs - 24 hr 02/26/21 02/26/21 02/27/21 17:09 18:16 00:25 Temperature 36.8 C 36.6 C Heart Rate [ 66 68 64 Brachial] Respiratory 18 12 Rate Blood Pressure 101/62 [Left Radial artery] Blood Pressure [Right Brachial artery] Blood Pressure 88/56 L 96/52 L [Right Radial artery] O2 Saturation 97 96 02/27/21 08:13 Temperature 36.5 C Heart Rate [ 67 Brachial] Respiratory 16 Rate Blood Pressure [Left Radial artery] Blood Pressure 90/55 L [Right Brachial artery] Blood Pressure [Right Radial artery] O2 Saturation 95 Oxygen O2 Source Room air I&O (Last 24 Hrs): Intake and Output Totals x24h 02/25/21 02/26/21 02/27/21 23:59 23:59 23:59 Intake Total 1130 1180 1490 Output Total 1275 1200 1375 Balance -145 -20 115 General: Alert, Oriented x3, Cooperative, No acute distress HEENT: Atraumatic Neck: Supple Lymphatic: no adenopathy Neuro: Alert, Oriented Times 3 Cardiovascular: Regular rate, Normal S1, Normal S2 Respiratory: Chest non-tender, No respiratory distress Abdomen: Normal bowel sounds, Soft Extremities: Normal pulses Comments/Notes: no new skin break down. 5 spots size of skin breaking are improved and reduced, and slight reduced erythema as well. - Results Results: Laboratory Results WBC 5.3 x10^3/uL (4.8-10.8) 02/27/21 09:55 RBC 4.03 10^6/uL (4.20-5.40) L 02/27/21 09:55 Hgb 10.1 g/dL (12.0-16.0) L 02/27/21 09:55 Hct 32.9 % (37.0-47.0) L 02/27/21 09:55 MCV 81.6 fL (81.0-99.0) 02/27/21 09:55 MCH 25.1 pg (27.0-31.0) L 02/27/21 09:55 MCHC 30.7 g/dL (32.0-36.0) L 02/27/21 09:55 RDW 19.3 % (12.0-15.0) H 02/27/21 09:55 Plt Count 328 10^3/uL (130-450) 02/27/21 09:55 MPV 9.7 fL (7.9-10.8) 02/27/21 09:55 Neut # (Auto) 3.1 10^3/uL (1.5-6.6) 02/27/21 09:55 Lymph # (Auto) 1.2 10^3/uL (1.5-3.5) L 02/27/21 09:55 [place] # (Auto) 0.6 10^3/uL (0.0-1.0) 02/27/21 09:55 Eos # (Auto) 0.3 10^3/uL (0.0-0.7) 02/27/21 09:55 Baso # (Auto) 0.0 10^3/uL (0.0-0.1) 02/27/21 09:55 Absolute Nucleated RBC 0.00 x10^3/uL 02/27/21 09:55 Nucleated RBC % 0.0 /100WBC 02/27/21 09:55 Sodium 133 mmol/L (135-145) L 02/27/21 09:55 Potassium 3.9 mmol/L (3.5-5.0) 02/27/21 09:55 Chloride 99 mmol/L (101-111) L 02/27/21 09:55 Carbon Dioxide 25 mmol/L (21-32) 02/27/21 09:55 Anion Gap 9.0 (6-13) 02/27/21 09:55 BUN 15 mg/dL (6-20) 02/27/21 09:55 Creatinine 0.6 mg/dL (0.4-1.0) 02/27/21 09:55 Estimated GFR (MDRD) 105 (>89) 02/27/21 09:55 Glucose 102 mg/dL (70-100) H 02/27/21 09:55 Lactic Acid 1.4 mmol/L (0.5-2.2) 02/15/21 22:36 Calcium 8.8 mg/dL (8.5-10.3) 02/27/21 09:55 Iron 13 ug/dL (28-170) L 02/17/21 04:25 TIBC 230 ug/dL (250-450) L 02/17/21 04:25 % Saturation 6 % (20-50) L 02/17/21 04:25 Transferrin 164 mg/dL (192-382) L 02/17/21 04:25 Total Bilirubin 0.5 mg/dL (0.2-1.0) 02/15/21 22:36 AST 12 IU/L (10-42) 02/15/21 22:36 ALT < 10 IU/L (10-60) L 02/15/21 22:36 Alkaline Phosphatase 86 IU/L (42-121) 02/15/21 22:36 Total Protein 7.5 g/dL (6.7-8.2) 02/15/21 22:36 Albumin 3.1 g/dL (3.2-5.5) L 02/15/21 22:36 Globulin 4.4 g/dL (2.1-4.2) H 02/15/21 22:36 Albumin/Globulin Ratio 0.7 (1.0-2.2) L 02/15/21 22:36 Lipase 27 U/L (22-51) 02/15/21 22:36 Nasal Adenovirus (PCR) NOT DETECTED 02/15/21 23:40 Nasal B. parapertussis DNA (PCR) NOT DETECTED 02/15/21 23:40 Nasal Coronavir 229E PCR NOT DETECTED 02/15/21 23:40 Nasal Coronavir HKU1 PCR NOT DETECTED 02/15/21 23:40 Nasal Coronavir NL63 PCR NOT DETECTED 02/15/21 23:40 Nasal Coronavir OC43 PCR NOT DETECTED 02/15/21 23:40 Nasal Enterovir/Rhinovir PCR NOT DETECTED 02/15/21 23:40 Nasal Influenza B PCR NOT DETECTED 02/15/21 23:40 Nasal Influenza A PCR NOT DETECTED 02/15/21 23:40 Nasal Parainfluen 1 PCR NOT DETECTED 02/15/21 23:40 Nasal Parainfluen 2 PCR NOT DETECTED 02/15/21 23:40 Nasal Parainfluen 3 PCR NOT DETECTED 02/15/21 23:40 Nasal Parainfluen 4 PCR NOT DETECTED 02/15/21 23:40 Nasal RSV (PCR) NOT DETECTED 02/15/21 23:40 Nasal B.pertussis DNA PCR NOT DETECTED 02/15/21 23:40 Nasal C.pneumoniae (PCR) NOT DETECTED 02/15/21 23:40 Pool Human Metapneumo PCR NOT DETECTED 02/15/21 23:40 Nasal M.pneumoniae (PCR) NOT DETECTED 02/15/21 23:40 Nasal SARS-CoV-2 (PCR) NOT DETECTED 02/15/21 23:40 - Procedures Procedures: Procedures VENOUS CATHETERIZATION NEC (06/02/14) ABX Reporting Has patient been on IV antibiotics over the past 48 hours?: No Current Medications - Current Medications Current Medications: Active Medications Acetaminophen (Acetaminophen 325 Mg Tablet) 650 mg PO Q4HR PRN PRN Reason: Pain or Fever > 38C (100.4F) Last Admin: 02/26/21 18:10 Dose: 650 mg Documented by: Aripiprazole (Aripiprazole 5 Mg Tablet) 20 mg PO DAILY [facility] Last Admin: 02/27/21 08:42 Dose: 20 mg Documented by: Bupropion HCl (Bupropion Sr 150 Mg Tablet) 150 mg PO BID [facility] Last Admin: 02/27/21 08:42 Dose: 150 mg Documented by: Citalopram Hydrobromide (Citalopram 10 Mg Tablet) 10 mg PO DAILY [facility] Last Admin: 02/27/21 08:42 Dose: 10 mg Documented by: Cyclobenzaprine HCl (Cyclobenzaprine 10 Mg Tablet) 10 mg PO TID PRN PRN Reason: Spasms Last Admin: 02/27/21 00:18 Dose: 10 mg Documented by: Enoxaparin Sodium (Enoxaparin 40 Mg/0.4 Ml Syringe) 40 mg SUBQ DAILY [facility] Last Admin: 02/27/21 08:41 Dose: 40 mg Documented by: Ferrous Gluconate (Ferrous Gluconate 324 Mg Tablet) 324 mg PO QDLUNCH [facility] Last Admin: 02/27/21 11:33 Dose: 324 mg Documented by: Hydrocortisone (Hydrocortisone 1% Ointment 28 Gm Tube) 1 applic TOP TID PRN PRN Reason: rash Hydroxyzine Pamoate (Hydroxyzine Pamoate 25 Mg Capsule) 0 mg PO DAILY PRN PRN Reason: ANXIETY Last Admin: 02/17/21 00:24 Dose: 25 mg Documented by: Hyoscyamine (Hyoscyamine Sl 0.125 Mg Tablet) 0.125 mg SL QID PRN PRN Reason: SPASMS Lactobacillus Rhamnosus (Lactobacillus Rhamnosus Gg Capsule) 1 cap PO DAILY [facility] Last Admin: 02/27/21 08:42 Dose: 1 cap Documented by: Loperamide HCl (Loperamide 2 Mg Capsule) 2 mg PO TID PRN PRN Reason: Diarrhea Meloxicam (Meloxicam 7.5 Mg Tablet) 15 mg PO DAILY [facility] Last Admin: 02/27/21 08:43 Dose: 15 mg Documented by: Multivitamins/Minerals (Multivitamin W/Minerals Tablet) 1 tab PO QDLUNCH [facility] Last Admin: 02/27/21 11:33 Dose: 1 tab Documented by: Ondansetron HCl (Ondansetron 4 Mg/2 Ml Vial) 4 mg IVP Q6HR PRN PRN Reason: Nausea / Vomiting Ondansetron HCl (Ondansetron Odt 4 Mg Tablet) 4 mg TL Q4HR PRN PRN Reason: Nausea / Vomiting Last Admin: 02/24/21 08:41 Dose: 4 mg Documented by: Oxycodone HCl (Oxycodone 5 Mg Tablet) 5 mg PO Q8H PRN PRN Reason: PAIN Last Admin: 02/27/21 11:33 Dose: 5 mg Documented by: Dexilant 30mg 1 each PO DAILY [facility] Last Admin: 02/27/21 08:43 Dose: 1 each Documented by: Polyethylene Glycol (Polyethylene Glycol 3350 17 Gm Packet) 17 gm PO DAILY [facility] Last Admin: 02/27/21 08:43 Dose: 17 gm Documented by: Propranolol HCl (Propranolol 10 Mg Tablet) 20 mg PO TIDWM [facility] Last Admin: 02/27/21 11:35 Dose: 20 mg Documented by: Quetiapine Fumarate (Quetiapine 100 Mg Tablet) 300 mg PO QPM [facility] Last Admin: 02/26/21 22:20 Dose: 300 mg Documented by: Silver Sulfadiazine (Silver Sulfadiazine Cream 25 Gm Tube) 1 applic TOP BID [facility] Last Admin: 02/27/21 09:31 Dose: 1 applic Documented by: Solifenacin (Solifenacin Succinate 10 Mg Tablet) 10 mg PO DAILY [facility] Last Admin: 02/27/21 09:30 Dose: 10 mg Documented by: Topiramate (Topiramate 25 Mg Tablet) 25 mg PO BID [facility] Last Admin: 02/27/21 08:43 Dose: 25 mg Documented by: Wheat Dextrin (Wheat Dextrin Powder Packet) 1 packet PO DAILY PRN PRN Reason: Constipation Last Admin: 02/27/21 08:41 Dose: 1 packet Documented by: Zolpidem Tartrate (Zolpidem 5 Mg Tablet) 10 mg PO QPM PRN PRN Reason: Insomnia Last Admin: 02/18/21 20:03 Dose: 10 mg Documented by: Propranolol [Inderal] 20 mg PO TID 04/27/13 Enalapril [Vasotec] 5 mg ORAL DAILY 05/14/14 Citalopram Hydrobromide [Celexa] 10 mg PO DAILY 08/22/16 Oxybutynin Chloride [Ditropan Xl] 10 mg PO DAILY 01/23/17 Quetiapine Fumarate [Seroquel Xr] 300 mg PO DAILY PM 01/23/17 oxyCODONE/ACET 5/325 [Percocet 5 mg/325 mg] 1 tab PO BID MDD 2 03/16/17 Zolpidem Tartrate [Ambien] 10 mg PO QPM PRN 06/05/17 ARIPiprazole [Abilify] 20 mg PO DAILY 08/28/17 Hydrocortisone 1% Oint [Hydrocortisone] 1 gm TP TID PRN 08/28/17 hydrOXYzine pamoate [Hydroxyzine Pamoate] 25 mg PO DAILY PRN 07/09/18 Loperamide [Imodium] 2 mg PO TID PRN 04/29/19 Cranberry 1 tab PO DAILY 06/22/20 Albuterol Sulf [Ventolin Hfa Inhaler] 2 puffs INH Q4HR PRN 02/16/21 Dexlansoprazole [Dexilant] 30 mg PO DAILY 02/16/21 Famotidine [Pepcid] 20 mg PO DAILY 02/16/21 Ferrous Sulfate 325 mg PO BIDWM 02/16/21 Hyoscyamine [Levsin] 0.125 mg SL BID PRN 02/16/21 Loratadine [Claritin] 10 mg PO DAILY 02/16/21 Meloxicam [Mobic] 15 mg PO DAILY 02/16/21 buPROPion [Wellbutrin Xl] 150 mg PO DAILY 02/16/21
[2021-02-27] MEDS: QUEtiapine 100 MG TABLET PO SCH (21:53)
[2021-02-28] MEDS: oxyCODONE 5 MG TABLET PO PRN ×2 (00:21→16:40)
[2021-02-28 06:05] LABS: BASOPHILS % (AUTO) 0.8 %; EOSINOPHILS # (AUTO) 0.3 10^3/uL (0.0-0.7); HCT - HEMATOCRIT 31.5 % (37.0-47.0); HGB - HEMOGLOBIN 9.5 g/dL (12.0-16.0); LYMPHOCYTES # (AUTO) 1.5 10^3/uL (1.5-3.5); LYMPHOCYTES % (AUTO) 28.2 %; MEAN CORPUSCULAR HEMOGLOBIN 24.8 pg (27.0-31.0); MEAN CORPUSCULAR HGB CONC 30.2 g/dL (32.0-36.0); MEAN CORPUSCULAR VOLUME 82.2 fL (81.0-99.0); MEAN PLATELET VOLUME 9.8 fL (7.9-10.8); MONOCYTES # (AUTO) 0.6 10^3/uL (0.0-1.0); MONOCYTES % (AUTO) 11.8 %; NEUTROPHILS # (AUTO) 2.7 10^3/uL (1.5-6.6); NEUTROPHILS % (AUTO) 52.8 %; PLT - PLATELET COUNT 321 10^3/uL (130-450); RED BLOOD COUNT 3.83 10^6/uL (4.20-5.40); RED CELL DISTRIBUTION WIDTH 19.8 % (12.0-15.0); WHITE BLOOD COUNT 5.2 x10^3/uL (4.8-10.8)
[2021-02-28 06:11] LABS: CALCIUM 8.5 mg/dL (8.5-10.3); CREATININE 0.6 mg/dL (0.4-1.0); POTASSIUM 3.8 mmol/L (3.5-5.0)
[2021-02-28] MEDS: PROPRANOLOL 10 MG TABLET PO SCH ×3 (08:03→16:43)
[2021-02-28] MEDS: CITALOPRAM 10 MG TABLET PO SCH (08:46)
[2021-02-28] MEDS: TOPIRAMATE 25 MG TABLET PO SCH ×2 (08:46→21:17)
[2021-02-28] MEDS: ENOXAPARIN 40 MG/0.4 ML SYRINGE SUBQ SCH (08:46)
[2021-02-28] MEDS: ARIPiprazole 5 MG TABLET PO SCH (08:46)
[2021-02-28] MEDS: buPROPion SR 150 MG TABLET PO SCH ×2 (08:46→21:17)
[2021-02-28] MEDS: SOLIFENACIN SUCCINATE 10 MG TABLET PO SCH (08:47)
[2021-02-28] MEDS: SILVER SULFADIAZINE CREAM 25 GM TUBE TOP SCH ×2 (08:47→21:17)
[2021-02-28] MEDS: polyethylene glycoL 3350 17 GM PACKET PO SCH (08:48)
[2021-02-28] MEDS: WHEAT DEXTRIN POWDER PACKET PO PRN (08:49)
[2021-02-28] MEDS: LACTOBACILLUS RHAMNOSUS GG CAPSULE PO SCH (08:52)
[2021-02-28] MEDS: MELOXICAM 7.5 MG TABLET PO SCH (08:52)
[2021-02-28] MEDS: FERROUS GLUCONATE 324 MG TABLET PO SCH (11:43)
[2021-02-28] MEDS: MULTIVITAMIN W/MINERALS TABLET PO SCH (11:43)
--- NOTE | 2021-02-28 16:24 | PROVIDER PROGRESS NOTE ---
Assessment/Plan - Problem List (1) Sacral decubitus ulcer Assessment/Plan: 02/28, followup surgeon's recommendation with silvadene cream, continue turn and reposition for pt. pt has hx of cerebral palsy, she can not turn position and can not take care of by her self, plus pt has BMI 38.8 obese, it is challenge for skin care at this position of sacral decubitus ulcer. pt may followup with her PCP to have wound care as out-pt after d/c as well. 02/27 check pt's wound with nurse/WHARF OPERATOR, improved slightly, continue with Silvadene cream per surgeon, continue skin care, continue turn and reposition for pt. pt has hx of cerebral palsy, she can not take care of herself for her wound. Consult with social work for disposition and safety planning. Patient is prescribed Roho gel chair pad [id number], powered mattress pressure reducing overlay [id number] for pt's skin care in the home. improved. there are five location loss of skin, 4 small size, one has area about 3-3cm, There is no palpitable tenderness in these area. We will consult with the surgeon, will continue with Silvadene, continue skin care, continue turn and reposition for pt, pt has hx of cerebral palsy, she can not take care of her skin problem. Continue consult with social work for disposition planning (2) Cellulitis of buttock Assessment/Plan: 02/28, skin condition show stable, no tenderness or warmth, but still present erythema and slight swelling as her chronic condition. pt already finished her antibiotics treatment before. pt has normal arrange WBC, pt has no fever. continue skin care, turn and reposition of pt. 02/27 Continue skin care, Turn and reposition for patient. We treated the patient for 10 days antibiotics, According to patient wound culture and sensitivity study. Patient has no acute tenderness, warmness, has normal range WBC patient has no fever. Patient already has no antibiotics, We will continue vital signs and clinical laboratory manager patient (3) Cerebral palsy Assessment/Plan: stable, (4) Neurogenic bladder stable, On dexilant and oxybutynin Suprapubic catheter was changed in the ED prior to admission (5) Depression Assessment/Plan: stable, On bupropion and citalopram. (6) HTN (hypertension) Assessment/Plan: stable, On enalapril and propanolol (7) Anemia, iron deficient Assessment/Plan: Hemoglobin stable, (8) Lymphedema stable, continue Nils bandages changed today and skin care. SCDs as tolerated at her request. (9)Bipolar Continue home medication Abilify and Topamax. - Current Meds Current Meds: Current Medications Generic Name Dose Route Start Last Admin Trade Name Freq PRN Reason Stop Dose Admin Acetaminophen 650 mg 02/15/21 23:26 02/26/21 18:10 Acetaminophen 325 Mg Tablet PO 650 mg Q4HR PRN Administration Pain or Fever > 38C (100.4F) Aripiprazole 20 mg 02/16/21 09:00 02/28/21 08:46 Aripiprazole 5 Mg Tablet PO 20 mg DAILY KRAIG Administration Bupropion HCl 150 mg 02/16/21 09:00 02/28/21 08:46 Bupropion Sr 150 Mg Tablet PO 150 mg BID KRAIG Administration Citalopram Hydrobromide 10 mg 02/16/21 09:00 02/28/21 08:46 Citalopram 10 Mg Tablet PO 10 mg DAILY KRAIG Administration Cyclobenzaprine HCl 10 mg 02/20/21 11:27 02/27/21 21:53 Cyclobenzaprine 10 Mg Tablet PO 10 mg TID PRN Administration Spasms Enoxaparin Sodium 40 mg 02/26/21 11:00 02/28/21 08:46 Enoxaparin 40 Mg/0.4 Ml Syringe SUBQ 40 mg DAILY KRAIG Administration Ferrous Gluconate 324 mg 02/26/21 12:00 02/28/21 11:43 Ferrous Gluconate 324 Mg Tablet PO 324 mg QDLUNCH KRAIG Administration Hydroxyzine Pamoate 0 mg 02/15/21 23:34 02/17/21 00:24 Hydroxyzine Pamoate 25 Mg Capsule PO 25 mg DAILY PRN Administration ANXIETY Lactobacillus Rhamnosus 1 cap 02/21/21 09:00 02/28/21 08:52 Lactobacillus Rhamnosus Gg Capsule PO 1 cap DAILY KRAIG Administration Meloxicam 15 mg 02/18/21 13:00 02/28/21 08:52 Meloxicam 7.5 Mg Tablet PO 15 mg DAILY KRAIG Administration Multivitamins/Minerals 1 tab 02/26/21 12:00 02/28/21 11:43 Multivitamin W/Minerals Tablet PO 1 tab QDLUNCH KRAIG Administration Ondansetron HCl 4 mg 02/18/21 01:21 02/24/21 08:41 Ondansetron Odt 4 Mg Tablet TL 4 mg Q4HR PRN Administration Nausea / Vomiting Oxycodone HCl 5 mg 02/16/21 01:57 02/28/21 00:21 Oxycodone 5 Mg Tablet PO 5 mg Q8H PRN Administration PAIN Dexilant 30mg 1 each 02/25/21 09:00 02/28/21 08:47 PO 1 each DAILY KRAIG Administration Polyethylene Glycol 17 gm 02/17/21 09:00 02/28/21 08:48 Polyethylene Glycol 3350 17 Gm Packet PO 17 gm DAILY KRAIG Administration Propranolol HCl 20 mg 02/16/21 08:00 02/28/21 11:46 Propranolol 10 Mg Tablet PO 20 mg TIDWM KRAIG Administration Quetiapine Fumarate 300 mg 02/16/21 21:00 02/27/21 21:53 Quetiapine 100 Mg Tablet PO 300 mg QPM KRAIG Administration Silver Sulfadiazine 1 applic 02/16/21 14:35 02/28/21 08:47 Silver Sulfadiazine Cream 25 Gm Tube TOP 1 applic BID KRAIG Administration Solifenacin 10 mg 02/16/21 09:00 02/28/21 08:47 Solifenacin Succinate 10 Mg Tablet PO 10 mg DAILY KRAIG Administration Topiramate 25 mg 02/16/21 09:00 02/28/21 08:46 Topiramate 25 Mg Tablet PO 25 mg BID KRAIG Administration Wheat Dextrin 1 packet 02/18/21 10:23 02/28/21 08:49 Wheat Dextrin Powder Packet PO 1 packet DAILY PRN Administration Constipation Zolpidem Tartrate 10 mg 02/16/21 00:48 02/18/21 20:03 Zolpidem 5 Mg Tablet PO 10 mg QPM PRN Administration Insomnia - Lab Result Fish Bone Diagrams: 02/28/21 05:37 02/28/21 05:37 - Additional Planning My Orders: My Active Orders 02/28/21 Home Health Referral [CONS] Routine Evaluate and Treat PT [PT] Routine 02/28/21 12:10 Miscellaenous Nursing Order [RC] ONCE 03/01/21 05:00 BMP - BASIC METABOLIC PANEL [CHEM] DAILYLAB CBC - COMP BLD CT W/AUTO DIFF [HEME] DAILYLAB Subjective - Subjective Patient Reports: Feeling Better Objective Vital Signs: Vital Signs - 24 hr 02/27/21 02/28/21 02/28/21 19:44 00:23 07:46 Temperature 36.4 C L 36.5 C Heart Rate [ 68 68 63 Brachial] Respiratory 18 18 17 Rate Blood Pressure 102/57 L 109/68 [Right Brachial artery] Blood Pressure 110/63 [Right Radial artery] O2 Saturation 96 97 99 Oxygen O2 Source Room air I&O (Last 24 Hrs): Intake and Output Totals x24h 02/26/21 02/27/21 02/28/21 23:59 23:59 23:59 Intake Total 1180 2466 840 Output Total 1200 1775 775 Balance -20 691 65 General: Alert, Oriented x3, Cooperative, No acute distress HEENT: Atraumatic Neck: Supple Lymphatic: no adenopathy Neuro: Alert, Non Focal, Oriented Times 3 Cardiovascular: Regular rate, Normal S1, Normal S2 Respiratory: Chest non-tender, No respiratory distress Abdomen: Normal bowel sounds, Soft Extremities: Normal pulses Comments/Notes: ulcers are in the healing. skin of sacral and groin area still present erythema and mild swelling, but no tenderness or warmth. - Results Results: Laboratory Results WBC 5.2 x10^3/uL (4.8-10.8) 02/28/21 05:37 RBC 3.83 10^6/uL (4.20-5.40) L 02/28/21 05:37 Hgb 9.5 g/dL (12.0-16.0) L 02/28/21 05:37 Hct 31.5 % (37.0-47.0) L 02/28/21 05:37 MCV 82.2 fL (81.0-99.0) 02/28/21 05:37 MCH 24.8 pg (27.0-31.0) L 02/28/21 05:37 MCHC 30.2 g/dL (32.0-36.0) L 02/28/21 05:37 RDW 19.8 % (12.0-15.0) H 02/28/21 05:37 Plt Count 321 10^3/uL (130-450) 02/28/21 05:37 MPV 9.8 fL (7.9-10.8) 02/28/21 05:37 Neut # (Auto) 2.7 10^3/uL (1.5-6.6) 02/28/21 05:37 Lymph # (Auto) 1.5 10^3/uL (1.5-3.5) 02/28/21 05:37 Morgan # (Auto) 0.6 10^3/uL (0.0-1.0) 02/28/21 05:37 Eos # (Auto) 0.3 10^3/uL (0.0-0.7) 02/28/21 05:37 Baso # (Auto) 0.0 10^3/uL (0.0-0.1) 02/28/21 05:37 Absolute Nucleated RBC 0.00 x10^3/uL 02/28/21 05:37 Nucleated RBC % 0.0 /100WBC 02/28/21 05:37 Sodium 132 mmol/L (135-145) L 02/28/21 05:37 Potassium 3.8 mmol/L (3.5-5.0) 02/28/21 05:37 Chloride 99 mmol/L (101-111) L 02/28/21 05:37 Carbon Dioxide 23 mmol/L (21-32) 02/28/21 05:37 Anion Gap 10.0 (6-13) 02/28/21 05:37 BUN 14 mg/dL (6-20) 02/28/21 05:37 Creatinine 0.6 mg/dL (0.4-1.0) 02/28/21 05:37 Estimated GFR (MDRD) 105 (>89) 02/28/21 05:37 Glucose 101 mg/dL (70-100) H 02/28/21 05:37 Lactic Acid 1.4 mmol/L (0.5-2.2) 02/15/21 22:36 Calcium 8.5 mg/dL (8.5-10.3) 02/28/21 05:37 Iron 13 ug/dL (28-170) L 02/17/21 04:25 TIBC 230 ug/dL (250-450) L 02/17/21 04:25 % Saturation 6 % (20-50) L 02/17/21 04:25 Transferrin 164 mg/dL (192-382) L 02/17/21 04:25 Total Bilirubin 0.5 mg/dL (0.2-1.0) 02/15/21 22:36 AST 12 IU/L (10-42) 02/15/21 22:36 ALT < 10 IU/L (10-60) L 02/15/21 22:36 Alkaline Phosphatase 86 IU/L (42-121) 02/15/21 22:36 Total Protein 7.5 g/dL (6.7-8.2) 02/15/21 22:36 Albumin 3.1 g/dL (3.2-5.5) L 02/15/21 22:36 Globulin 4.4 g/dL (2.1-4.2) H 02/15/21 22:36 Albumin/Globulin Ratio 0.7 (1.0-2.2) L 02/15/21 22:36 Lipase 27 U/L (22-51) 02/15/21 22:36 Nasal Adenovirus (PCR) NOT DETECTED 02/15/21 23:40 Nasal B. parapertussis DNA (PCR) NOT DETECTED 02/15/21 23:40 Nasal Coronavir 229E PCR NOT DETECTED 02/15/21 23:40 Nasal Coronavir HKU1 PCR NOT DETECTED 02/15/21 23:40 Nasal Coronavir NL63 PCR NOT DETECTED 02/15/21 23:40 Nasal Coronavir OC43 PCR NOT DETECTED 02/15/21 23:40 Nasal Enterovir/Rhinovir PCR NOT DETECTED 02/15/21 23:40 Nasal Influenza B PCR NOT DETECTED 02/15/21 23:40 Nasal Influenza A PCR NOT DETECTED 02/15/21 23:40 Nasal Parainfluen 1 PCR NOT DETECTED 02/15/21 23:40 Nasal Parainfluen 2 PCR NOT DETECTED 02/15/21 23:40 Nasal Parainfluen 3 PCR NOT DETECTED 02/15/21 23:40 Nasal Parainfluen 4 PCR NOT DETECTED 02/15/21 23:40 Nasal RSV (PCR) NOT DETECTED 02/15/21 23:40 Nasal B.pertussis DNA PCR NOT DETECTED 02/15/21 23:40 Nasal C.pneumoniae (PCR) NOT DETECTED 02/15/21 23:40 Pool Human Metapneumo PCR NOT DETECTED 02/15/21 23:40 Nasal M.pneumoniae (PCR) NOT DETECTED 02/15/21 23:40 Nasal SARS-CoV-2 (PCR) NOT DETECTED 02/15/21 23:40 - Procedures Procedures: Procedures VENOUS CATHETERIZATION NEC (06/02/14) ABX Reporting Has patient been on IV antibiotics over the past 48 hours?: No Current Medications - Current Medications Current Medications: Active Medications Acetaminophen (Acetaminophen 325 Mg Tablet) 650 mg PO Q4HR PRN PRN Reason: Pain or Fever > 38C (100.4F) Last Admin: 02/26/21 18:10 Dose: 650 mg Documented by: Aripiprazole (Aripiprazole 5 Mg Tablet) 20 mg PO DAILY [facility] Last Admin: 02/28/21 08:46 Dose: 20 mg Documented by: Bupropion HCl (Bupropion Sr 150 Mg Tablet) 150 mg PO BID [facility] Last Admin: 02/28/21 08:46 Dose: 150 mg Documented by: Citalopram Hydrobromide (Citalopram 10 Mg Tablet) 10 mg PO DAILY [facility] Last Admin: 02/28/21 08:46 Dose: 10 mg Documented by: Cyclobenzaprine HCl (Cyclobenzaprine 10 Mg Tablet) 10 mg PO TID PRN PRN Reason: Spasms Last Admin: 02/27/21 21:53 Dose: 10 mg Documented by: Enoxaparin Sodium (Enoxaparin 40 Mg/0.4 Ml Syringe) 40 mg SUBQ DAILY [facility] Last Admin: 02/28/21 08:46 Dose: 40 mg Documented by: Ferrous Gluconate (Ferrous Gluconate 324 Mg Tablet) 324 mg PO QDLUNCH [facility] Last Admin: 02/28/21 11:43 Dose: 324 mg Documented by: Hydrocortisone (Hydrocortisone 1% Ointment 28 Gm Tube) 1 applic TOP TID PRN PRN Reason: rash Hydroxyzine Pamoate (Hydroxyzine Pamoate 25 Mg Capsule) 0 mg PO DAILY PRN PRN Reason: ANXIETY Last Admin: 02/17/21 00:24 Dose: 25 mg Documented by: Hyoscyamine (Hyoscyamine Sl 0.125 Mg Tablet) 0.125 mg SL QID PRN PRN Reason: SPASMS Lactobacillus Rhamnosus (Lactobacillus Rhamnosus Gg Capsule) 1 cap PO DAILY [facility] Last Admin: 02/28/21 08:52 Dose: 1 cap Documented by: Loperamide HCl (Loperamide 2 Mg Capsule) 2 mg PO TID PRN PRN Reason: Diarrhea Meloxicam (Meloxicam 7.5 Mg Tablet) 15 mg PO DAILY [facility] Last Admin: 02/28/21 08:52 Dose: 15 mg Documented by: Multivitamins/Minerals (Multivitamin W/Minerals Tablet) 1 tab PO QDLUNCH [facility] Last Admin: 02/28/21 11:43 Dose: 1 tab Documented by: Ondansetron HCl (Ondansetron 4 Mg/2 Ml Vial) 4 mg IVP Q6HR PRN PRN Reason: Nausea / Vomiting Ondansetron HCl (Ondansetron Odt 4 Mg Tablet) 4 mg TL Q4HR PRN PRN Reason: Nausea / Vomiting Last Admin: 02/24/21 08:41 Dose: 4 mg Documented by: Oxycodone HCl (Oxycodone 5 Mg Tablet) 5 mg PO Q8H PRN PRN Reason: PAIN Last Admin: 02/28/21 00:21 Dose: 5 mg Documented by: Dexilant 30mg 1 each PO DAILY [facility] Last Admin: 02/28/21 08:47 Dose: 1 each Documented by: Polyethylene Glycol (Polyethylene Glycol 3350 17 Gm Packet) 17 gm PO DAILY [facility] Last Admin: 02/28/21 08:48 Dose: 17 gm Documented by: Propranolol HCl (Propranolol 10 Mg Tablet) 20 mg PO TIDWM [facility] Last Admin: 02/28/21 11:46 Dose: 20 mg Documented by: Quetiapine Fumarate (Quetiapine 100 Mg Tablet) 300 mg PO QPM [facility] Last Admin: 02/27/21 21:53 Dose: 300 mg Documented by: Silver Sulfadiazine (Silver Sulfadiazine Cream 25 Gm Tube) 1 applic TOP BID [facility] Last Admin: 02/28/21 08:47 Dose: 1 applic Documented by: Solifenacin (Solifenacin Succinate 10 Mg Tablet) 10 mg PO DAILY [facility] Last Admin: 02/28/21 08:47 Dose: 10 mg Documented by: Topiramate (Topiramate 25 Mg Tablet) 25 mg PO BID [facility] Last Admin: 02/28/21 08:46 Dose: 25 mg Documented by: Wheat Dextrin (Wheat Dextrin Powder Packet) 1 packet PO DAILY PRN PRN Reason: Constipation Last Admin: 02/28/21 08:49 Dose: 1 packet Documented by: Zolpidem Tartrate (Zolpidem 5 Mg Tablet) 10 mg PO QPM PRN PRN Reason: Insomnia Last Admin: 02/18/21 20:03 Dose: 10 mg Documented by: Propranolol [Inderal] 20 mg PO TID 04/27/13 Enalapril [Vasotec] 5 mg ORAL DAILY 05/14/14 Citalopram Hydrobromide [Celexa] 10 mg PO DAILY 08/22/16 Oxybutynin Chloride [Ditropan Xl] 10 mg PO DAILY 01/23/17 Quetiapine Fumarate [Seroquel Xr] 300 mg PO DAILY PM 01/23/17 oxyCODONE/ACET 5/325 [Percocet 5 mg/325 mg] 1 tab PO BID MDD 2 03/16/17 Zolpidem Tartrate [Ambien] 10 mg PO QPM PRN 06/05/17 ARIPiprazole [Abilify] 20 mg PO DAILY 08/28/17 Hydrocortisone 1% Oint [Hydrocortisone] 1 gm TP TID PRN 08/28/17 hydrOXYzine pamoate [Hydroxyzine Pamoate] 25 mg PO DAILY PRN 07/09/18 Loperamide [Imodium] 2 mg PO TID PRN 04/29/19 Cranberry 1 tab PO DAILY 06/22/20 Albuterol Sulf [Ventolin Hfa Inhaler] 2 puffs INH Q4HR PRN 02/16/21 Dexlansoprazole [Dexilant] 30 mg PO DAILY 02/16/21 Famotidine [Pepcid] 20 mg PO DAILY 02/16/21 Ferrous Sulfate 325 mg PO BIDWM 02/16/21 Hyoscyamine [Levsin] 0.125 mg SL BID PRN 02/16/21 Loratadine [Claritin] 10 mg PO DAILY 02/16/21 Meloxicam [Mobic] 15 mg PO DAILY 02/16/21 buPROPion [Wellbutrin Xl] 150 mg PO DAILY 02/16/21
[2021-02-28] MEDS: ACETAMINOPHEN 325 MG TABLET PO PRN (16:40)
[2021-02-28] MEDS: QUEtiapine 100 MG TABLET PO SCH (21:17)
[2021-03-01 05:24] LABS: BASOPHILS % (AUTO) 0.6 %; EOSINOPHILS # (AUTO) 0.3 10^3/uL (0.0-0.7); EOSINOPHILS % (AUTO) 5.7 %; HCT - HEMATOCRIT 31.5 % (37.0-47.0); HGB - HEMOGLOBIN 9.5 g/dL (12.0-16.0); LYMPHOCYTES # (AUTO) 1.6 10^3/uL (1.5-3.5); LYMPHOCYTES % (AUTO) 32.3 %; MEAN CORPUSCULAR HEMOGLOBIN 25.1 pg (27.0-31.0); MEAN CORPUSCULAR HGB CONC 30.2 g/dL (32.0-36.0); MEAN CORPUSCULAR VOLUME 83.3 fL (81.0-99.0); MEAN PLATELET VOLUME 10.3 fL (7.9-10.8); MONOCYTES # (AUTO) 0.5 10^3/uL (0.0-1.0); MONOCYTES % (AUTO) 9.4 %; NEUTROPHILS # (AUTO) 2.6 10^3/uL (1.5-6.6); NEUTROPHILS % (AUTO) 51.8 %; PLT - PLATELET COUNT 312 10^3/uL (130-450); RED BLOOD COUNT 3.78 10^6/uL (4.20-5.40); RED CELL DISTRIBUTION WIDTH 20.2 % (12.0-15.0); WHITE BLOOD COUNT 5.1 x10^3/uL (4.8-10.8)
[2021-03-01 05:30] LABS: CALCIUM 8.7 mg/dL (8.5-10.3); CREATININE 0.7 mg/dL (0.4-1.0); POTASSIUM 3.9 mmol/L (3.5-5.0)
[2021-03-01 05:31] LABS: SLIDE REVIEW? Indicated
[2021-03-01 06:50] LABS: RBC MORPHOLOGY (MULTIPLE) 4+ ANISOCYTOSIS (NORMAL)
[2021-03-01 06:57] VITALS: BP 113/74
[2021-03-01] MEDS: ACETAMINOPHEN 325 MG TABLET PO PRN (07:53)
[2021-03-01] MEDS: PROPRANOLOL 10 MG TABLET PO SCH ×2 (07:54→11:56)
[2021-03-01] MEDS: oxyCODONE 5 MG TABLET PO PRN (07:54)
[2021-03-01] MEDS: TOPIRAMATE 25 MG TABLET PO SCH (08:52)
[2021-03-01] MEDS: LACTOBACILLUS RHAMNOSUS GG CAPSULE PO SCH (08:52)
[2021-03-01] MEDS: ARIPiprazole 5 MG TABLET PO SCH (08:52)
[2021-03-01] MEDS: SOLIFENACIN SUCCINATE 10 MG TABLET PO SCH (08:52)
[2021-03-01] MEDS: CITALOPRAM 10 MG TABLET PO SCH (08:52)
[2021-03-01] MEDS: MELOXICAM 7.5 MG TABLET PO SCH (08:52)
[2021-03-01] MEDS: SILVER SULFADIAZINE CREAM 25 GM TUBE TOP SCH (08:53)
[2021-03-01] MEDS: buPROPion SR 150 MG TABLET PO SCH (08:53)
[2021-03-01] MEDS: polyethylene glycoL 3350 17 GM PACKET PO SCH (08:53)
[2021-03-01] MEDS: ENOXAPARIN 40 MG/0.4 ML SYRINGE SUBQ SCH (08:53)
--- NOTE | 2021-03-01 09:09 | Discharge Plan ---
Discharge Plan Problem Reviewed?: Yes Disposition: Home Health Service Condition: Stable Prescriptions: Silver Sulfadiazine Cream [Silvadene Cream] 1 applic TOP BID #2 tu Multivitamin W/Minerals [Theragran M] 1 tab PO QDLUNCH #30 tablet Diet: Regular Activity Restrictions: Activity as Tolerated Shower Restrictions: No (fall precaution) Instruction Topics: Silver Sulfadiazine skin cream, Wound Care, Catheter Suprapubic Care Dc Health Concerns: skin care and suprapubic catheter care Plan of Treatment: you are prescribed silvadene cream for your skin care, you may resume your home medications. Home health RN is arranged for your skin care and suprapubic catheter care. You may turn and reposition every two hours by your caregiver to help you. You may followup with your PCP in one week, continue your skin wound care at out-pt setting, and followup with your urologist for your suprapubic catheter care as out-pt. Care Goals: stabilization and improvement/resolve of your medical conditions. Assessment: discussed the care plan with you, answered your questions, you understood. Additional Instructions or Follow Up instructions: You may followup with your PCP in one week, continue wound care at out-pt setting. Should your symptoms return or worsen, you may present ER or call 911 for help. Follow-Up Care: Home Health - RN No Smoking: If you smoke, Please STOP! Call for help. Follow-up with: Bennie Hill MD [Primary Care Provider] -
--- NOTE | 2021-03-01 09:26 | DISCHARGE SUMMARY ---
"Discharge Summary Admit Date: 02/15/21 Discharge Date: 03/01/21 Discharging Provider: Aime Ba Primary Care Provider: Bennie Wei Condition at Discharge: Stable Discharge Disposition: 06 Home Health Service - DIAGNOSES Discharge Diagnoses with Status of Each Condition: (1) Sacral decubitus ulcer ulcer has significantly improved compared with pt's condition at the admission. Discussed the care plan with pt. pt report she had chronic sacral skin wound. she recognized it is challenged condition for her skin care. pt has hx of cerebral palsy, she can not move her body to change her own position, and she had BMI 39. Her skin is always in the high risk to have pressure ulcer. pt was consulted with surgeon for her skin care. surgeon recommended silvadene cream, it is prescribed for pt. pt is arranged home health RN for skin care. pt may followup with her PCP to have wound care at out-pt setting. licensed clinical social worker help pt and her family hired three caregiver 24 hours care for pt. pt may have turn and reposition every two hours. pt is prescribed ROHO Gel chair pad, and Powered mattress pressure reducing overlay. pt's family bought Dynasil life, Home health PT was arranged for pt's care and educate pt's family how to use the Daiana 3000 life as well. (2) Cellulitis of buttock pt was treated antibiotics in hospital then d/c, pt has normal arrange WBC, has no fever. Clinically pt's cellulitis infection has significantly improved and controlled, no further antibiotics was indicated at this time. Pt may followup with her PCP and home health RN continue management. (3) Cerebral palsy stable, pt has caregiver care help pt (4) Neurogenic bladder stable, pt had Epps change on yesterday (02/28/21). home health RN is arranged for Epps care (5) Depression stable, resume home meds (6) HTN (hypertension) stable, resume home meds (7) Anemia, iron deficient Hemoglobin stable, resume home meds (8) Lymphedema stable, continue care at home by caregiver and home health RN, and her PCP. (9)Bipolar stable, resume home meds - HPI History of Present Illness: refer from Dr. Rosie Holder's HPI on 02/15/21 This is a 50-year-old WF with history of hypertension, GERD, depression, PTSD, cerebral palsy with neurogenic bladder, chronic indwelling bladder catheter, and frequent UTIs in the past. She is bedbound and has contractures, she has a wheelchair. The patient gets a visiting nurse who has been treating a stage I sacral decubitus ulcer with topical management. She is also on many chronic oral antibiotics. After the recent heat wave of 3 days, her hygiene led to worsening of the sacral decubiti, and thus she was brought to the emergency room. The ED provider found multiple sacral decubitus ulcer, deeper than stage 1, down to subcutaneous fat, some are oozing and there is also surrounding cellulitis of an extensive area. The patient is afebrile, has a normal WBC and normal Lactic Acid level. She is being placed in Observation status to start antibiotics and obtain general surgery consult for debridement and recommendations for wound care. - CONSULTS | PROCEDURES Consultations: Dr. Asher Procedures: no - HOSPITAL COURSE Hospital Course: pt was admitted for sacral decubitus ulcer and buttock cellulitis. The patient has been treated for sacral decubitus ulcer with topical management by visiting nurse. She has been on many chronic oral antibiotics before. pt was consulted by surgeon for wound care. Surgeon recommended no procedure and order Silvadene cream for pt. Nurse was ordered turn and reposition for pt, and wound care. after treated in hospital, pt's skin ulcer has significantly improved. pt was initially treated with antibiotics in hospital. Then her antibiotics was discontinued and no further antibiotic treatment indicated at this time. pan tank worker help pt and her family hired three caregiver for pt. Two equipments were prescribed for pt. pt's family bought Daiana 3000 left for pt. home health RN and PT are arranged for pt's care. Pt's suprapubic catheter was changed at hospital. home health RN was arranged for Epps care as well. - ALLERGIES Allergies/Adverse Reactions: Allergies Allergy/AdvReac Type Severity Reaction Status Date / Time phenazopyridine Allergy Unknown Verified 02/15/21 21:54 [From Pyridium] paroxetine HCl * [From Paxil] AdvReac Intermediate Emesis Verified 02/15/21 21:54 codeine [Codeine] AdvReac Pass Out Verified 02/15/21 21:54 - MEDICATIONS Home Medications: Ambulatory Orders Medication Instructions Recorded Confirmed Propranolol [Inderal] 20 mg PO TID 04/27/13 02/15/21 Enalapril [Vasotec] 5 mg ORAL DAILY 05/14/14 02/15/21 Nystatin Cream [Mycostatin Cream] 1 applic TOP BID PRN #60 g 12/30/15 02/15/21 Citalopram Hydrobromide [Celexa] 10 mg PO DAILY 08/22/16 02/15/21 Oxybutynin Chloride [Ditropan Xl] 10 mg PO DAILY 01/23/17 02/15/21 Quetiapine Fumarate [Seroquel Xr] 300 mg PO DAILY PM 01/23/17 02/15/21 oxyCODONE/ACET 5/325 [Percocet 5 1 tab PO BID MDD 2 03/16/17 02/16/21 mg/325 mg] Zolpidem Tartrate [Ambien] 10 mg PO QPM PRN 06/05/17 02/15/21 ARIPiprazole [Abilify] 20 mg PO DAILY 08/28/17 02/15/21 Hydrocortisone 1% Oint 1 gm TP TID PRN 08/28/17 02/15/21 [Hydrocortisone] hydrOXYzine pamoate [Hydroxyzine 25 mg PO DAILY PRN 07/09/18 02/16/21 Pamoate] Loperamide [Imodium] 2 mg PO TID PRN 04/29/19 02/15/21 Cod Liver Oil/Zinc Oxide [Desitin] 1 applic TOP TID 14 Days #1 tube 09/03/19 02/15/21 Cranberry 1 tab PO DAILY 06/22/20 02/15/21 Ondansetron Odt [Zofran Odt] 4 mg TL Q6H PRN #10 tablet 07/04/20 02/15/21 Ketoconazole/Hydrocortisone [Pheyo 1 gm TP DAILY #30 cream..g. 07/15/20 02/15/21 2.5%-2% Cream] Albuterol Sulf [Ventolin Hfa 2 puffs INH Q4HR PRN 02/16/21 02/16/21 Inhaler] Dexlansoprazole [Dexilant] 30 mg PO DAILY 02/16/21 02/16/21 Famotidine [Pepcid] 20 mg PO DAILY 02/16/21 02/16/21 Ferrous Sulfate 325 mg PO BIDWM 02/16/21 02/16/21 Hyoscyamine [Levsin] 0.125 mg SL BID PRN 02/16/21 02/16/21 Loratadine [Claritin] 10 mg PO DAILY 02/16/21 02/16/21 Meloxicam [Mobic] 15 mg PO DAILY 02/16/21 02/16/21 buPROPion [Wellbutrin Xl] 150 mg PO DAILY 02/16/21 02/16/21 Multivitamin W/Minerals [Theragran 1 tab PO QDLUNCH #30 tablet 03/01/21 M] Silver Sulfadiazine Cream 1 applic TOP BID #2 tu 03/01/21 [Silvadene Cream] - PHYSICAL EXAM AT DISCHARGE General Appearance: positive: No acute distress, Alert. negative: Lethargic Eyes Bilateral: positive: Normal inspection, PERRL, No lid inflammation ENT: positive: ENT inspection nml, No signs of dehydration. negative: Purulent nasal drainage Neck: positive: Nml inspection, Trachea midline. negative: Thyromegaly, Tracheal deviation Respiratory: positive: Chest non-tender, No respiratory distress. negative: Wheezes, Rales Cardiovascular: positive: Regular rate & rhythm, No murmur. negative: Tachycardia, Bradycardia, Systolic murmur, Diastolic murmur Peripheral Pulses: positive: 2+ Abdomen: positive: Non-tender, Nml bowel sounds, No distention. negative: Tenderness Skin: positive: Warm, Dry, Other (looking at the pictures from admission into now, the peeling of her skin which was extensive on both bilateral buttocks, overall has almost completely gone away and she has almost intact coverage.). negative: Cyanosis Extremities: positive: Non-tender, No pedal edema, Other (pt has hx of cerebral palsy, she can not bear weight at all) Neurologic/Psychiatric: positive: Oriented x3. negative: Sensory loss, Facial droop, Slurred/abnml speech - LABS Result Diagrams: 03/01/21 04:13 03/01/21 04:13 - FOLLOW UP Follow Up: you are prescribed silvadene cream for your skin care, you may resume your home medications. Home health RN is arranged for your skin care and suprapubic catheter care. You may turn and reposition every two hours by your caregiver to help you. You may followup with your PCP in one week, continue your skin wound care at out-pt setting, and followup with your urologist for your suprapubic catheter care as out-pt. You may followup with your PCP in one week, continue wound care at out-pt setting. Should your symptoms return or worsen, you may present ER or call 911 for help. - TIME SPENT Time Spent in Discharge (Minutes): 40"
[2021-03-01] MEDS: MULTIVITAMIN W/MINERALS TABLET PO SCH (11:56)
[2021-03-01] MEDS: FERROUS GLUCONATE 324 MG TABLET PO SCH (11:59)
== END 2021-03-01 13:30 | disposition home health service (06) | DRG 593 ==
LOC: EDUNIT# → SUPCPDRO 21:39 → ED 21:39 → MS2 23:23 → OBSVTOIN 02-17 13:11
PROVIDERS: ADMIT Internal Medicine; ATTEND Nurse Practitioner Gerontology
DX: L89.150 Pressure ulcer of sacral region, unstageable (principal); L03.317 Cellulitis of buttock; L89.309 Pressure ulcer of unspecified buttock, unspecified stage; G80.9 Cerebral palsy, unspecified; N31.9 Neuromuscular dysfunction of bladder, unspecified; I10 Essential (primary) hypertension; D50.9 Iron deficiency anemia, unspecified; F32.9 Major depressive disorder, single episode, unspecified; I89.0 Lymphedema, not elsewhere classified; F31.9 Bipolar disorder, unspecified; K21.9 Gastro-esophageal reflux disease without esophagitis; D64.9 Anemia, unspecified; Z96.0 Presence of urogenital implants; Z79.899 Other long term (current) drug therapy; Z87.440 Personal history of urinary (tract) infections; Z20.822 Contact with and (suspected) exposure to COVID-19; Z74.01 Bed confinement status; Z99.3 Dependence on wheelchair; Z87.891 Personal history of nicotine dependence; Z79.2 Long term (current) use of antibiotics
CPT/HCPCS: 36415; 80048; 80053; 83540; 83605; 83690; 84466; 85025; 87070; 87077; 87181; 87205; 87631; 96365; 96366; 96367; 96375; 97162; 99284; 99285; A9270; G0378; J1650; J3370; Q0162; 0202U; 80202

== ENCOUNTER 2021-03-01 13:35 | Outpatient (CLI) | payer MEDICARE, MEDICAID | END 2021-03-01 13:36 | disposition home or self-care (01) | LOC: EMS 13:35 | PROVIDERS: ATTEND Nurse Practitioner Gerontology | DX: Z74.01 Bed confinement status (principal); G80.9 Cerebral palsy, unspecified; L89.90 Pressure ulcer of unspecified site, unspecified stage | CPT/HCPCS: A0425; A0428 ==

== ENCOUNTER 2021-08-03 11:00 | Outpatient (CLI) | payer MEDICARE, MEDICAID ==
[2021-08-03 13:02] LABS: BILIRUBIN,URINE NEGATIVE (NEGATIVE); GLUCOSE, URINE (UA) NEGATIVE (NEGATIVE); KETONES,URINE (UA) NEGATIVE (NEGATIVE); LEUKOCYTE ESTERASE, URINE MODERATE (NEGATIVE); NITRITE,URINE POSITIVE (NEGATIVE); OCCULT BLOOD,URINE SMALL (NEGATIVE); PROTEIN,URINE TRACE mg/dL (NEGATIVE); UROBILINOGEN,URINE 0.2 (NORMAL) E.U./dL (NORMAL)
[2021-08-03 13:05] LABS: CLARITY,URINE CLOUDY (CLEAR)
[2021-08-03 13:09] LABS: BACTERIA,URINE Many /HPF (None Seen); SQUAMOUS EPITHELIAL CELL,UR RARE Squamous (<= Few)
== END 2021-08-03 23:59 | disposition home or self-care (01) ==
LOC: LAB 11:00
PROVIDERS: ATTEND Family Medicine
DX: R39.15 Urgency of urination (principal)
CPT/HCPCS: 81001; 81003; 87086

== ENCOUNTER 2021-12-03 14:29 | Outpatient (CLI) | payer MEDICARE, MEDICAID | END 2021-12-03 14:30 | disposition critical access hospital (66) | LOC: EMS 14:29 | DX: T83.038A Leakage of other urinary catheter, initial encounter (principal); G80.9 Cerebral palsy, unspecified; Z99.3 Dependence on wheelchair | CPT/HCPCS: A0425; A0429 ==

== ENCOUNTER 2021-12-03 14:52 | Emergency (ER) | payer MEDICARE, MEDICAID ==
[2021-12-03] MEDS ORDERED: HYDROmorphone 1 MG/ML CARPUJECT IM STA (15:43)
[2021-12-03] MEDS ORDERED: LIDOCAINE 2% URO-JET 5 ML SYRINGE UR STA (16:12)
--- NOTE | 2021-12-03 16:28 | ED Physician Documentation ---
PD HPI FEMALE - Stated complaint Stated Complaint: FEM - Chief complaint Chief Complaint: Abd Pain - History obtained from History obtained from: Patient - History of Present Illness Timing - onset: Today Timing - duration: Hours (1-2 hours ago) Timing - details: Abrupt onset (she was gettign suprapubic catheter change by home nursing, and they pulled out old one but could not get new one in. 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 SERVICES DISPATCHER: None : Indwelling catheter HEENT: Chronic vision loss Psych: Depression, Anxiety, Bipolar disorder, Post traumatic stress disorder Musculoskeletal: Osteoarthritis, Other Derm: Psoriasis - Past Surgical History Past Surgical History: Yes General: Hiatal hernia repair, EGD Ortho: Other /EMERGENCY SERVICES DISPATCHER: section, Hysterectomy - Present Medications Home Medications: Ambulatory Orders Medication Instructions Recorded Confirmed Propranolol [Inderal] 20 mg PO TID 04/27/13 06/26/21 Enalapril [Vasotec] 5 mg ORAL DAILY 05/14/14 06/26/21 Nystatin Cream [Mycostatin Cream] 1 applic TOP BID PRN #60 g 12/30/15 06/26/21 Citalopram Hydrobromide [Celexa] 10 mg PO DAILY 08/22/16 06/26/21 Oxybutynin Chloride [Ditropan Xl] 10 mg PO DAILY 01/23/17 06/26/21 Quetiapine Fumarate [Seroquel Xr] 300 mg PO DAILY PM 01/23/17 06/26/21 oxyCODONE/ACET 5/325 [Percocet 5 1 tab PO BID MDD 2 03/16/17 06/26/21 mg/325 mg] Zolpidem Tartrate [Ambien] 10 mg PO QPM PRN 06/05/17 06/26/21 ARIPiprazole [Abilify] 20 mg PO DAILY 08/28/17 06/26/21 Hydrocortisone 1% Oint 1 gm TP TID PRN 08/28/17 06/26/21 [Hydrocortisone] hydrOXYzine pamoate [Hydroxyzine 25 mg PO DAILY PRN 07/09/18 06/26/21 Pamoate] Loperamide [Imodium] 2 mg PO TID PRN 04/29/19 06/26/21 Cod Liver Oil/Zinc Oxide [Desitin] 1 applic TOP TID 14 Days #1 tube 09/03/19 06/26/21 Cranberry 1 tab PO DAILY 06/22/20 06/26/21 Ondansetron Odt [Zofran Odt] 4 mg TL Q6H PRN #10 tablet 07/04/20 06/26/21 Ketoconazole/Hydrocortisone [Pheyo 1 gm TP DAILY #30 cream..g. 07/15/20 06/26/21 2.5%-2% Cream] Albuterol Sulf [Ventolin Hfa 2 puffs INH Q4HR PRN 02/16/21 06/26/21 Inhaler] Dexlansoprazole [Dexilant] 30 mg PO DAILY 02/16/21 06/26/21 Famotidine [Pepcid] 20 mg PO DAILY 02/16/21 06/26/21 Ferrous Sulfate 325 mg PO BIDWM 02/16/21 06/26/21 Hyoscyamine [Levsin] 0.125 mg SL BID PRN 02/16/21 06/26/21 Loratadine [Claritin] 10 mg PO DAILY 02/16/21 06/26/21 Meloxicam [Mobic] 15 mg PO DAILY 02/16/21 06/26/21 buPROPion [Wellbutrin Xl] 150 mg PO DAILY 02/16/21 06/26/21 Multivitamin W/Minerals [Theragran 1 tab PO QDLUNCH #30 tablet 03/01/21 06/26/21 M] Silver Sulfadiazine Cream 1 applic TOP BID #2 tu 03/01/21 06/26/21 [Silvadene Cream] - Allergies Allergies/Adverse Reactions: Allergies Allergy/AdvReac Type Severity Reaction Status Date / Time phenazopyridine Allergy Unknown Verified 12/03/21 15:00 [From Pyridium] paroxetine HCl * [From Paxil] AdvReac Intermediate Emesis Verified 12/03/21 15:00 codeine [Codeine] AdvReac Pass Out Verified 12/03/21 15:00 - Social History Does the pt smoke?: No Smoking Status: Never smoker Does the pt drink ETOH?: No Does the pt have substance abuse?: No - Immunizations Immunizations are current?: Yes - POLST Patient has POLST: No PD ED PE NORMAL - Vitals Vital signs reviewed: Yes - General General: Alert and oriented X 3, No acute distress, Well developed/nourished - Abdomen Abdomen: Soft, Non distended, Other (suprapubic catheter hole present, without signs of infection around it. DRaining some urine. ) Results - Vitals Vitals: Vital Signs - 24 hr 12/03/21 12/03/21 12/03/21 15:00 17:07 18:37 Temperature 37.2 C 37.0 C 37.0 C Heart Rate 71 70 70 Respiratory 16 16 16 Rate Blood Pressure 113/77 112/76 114/78 O2 Saturation 94 94 94 Oxygen O2 Source Room air PD MEDICAL DECISION MAKING - ED course Complexity details: reviewed old records (KATHY shows monthly Rx for pain meds 56/month.), re-evaluated patient (patient did ask for Rx for pain meds, but I don't feel she would be hurting more than baseline from the catheter change per se. I lieu of KATHY, I defer any further opioid Rx. ), considered differential (patient requests some pain med prior to inserting new catheter. Seems reasonable. We did not have any suprapubic catheters in the hospital, so will need to use butcher for now. 20F butcher catheter used with Lido urojet, with easy insertion into the bladder through suprapubic tract. URine without blood.), d/w patient Departure - Departure Disposition: 01 Home, Self Care Clinical Impression: Suprapubic catheter dysfunction Qualifiers: Encounter type: initial encounter Qualified Code(s): T83.010A - Breakdown (mechanical) of cystostomy catheter, initial encounter Condition: Stable Record reviewed to determine appropriate education?: Yes Comments: You should be able to use the Butcher catheter and there in the same fashion as the suprapubic catheter you typically have. Unfortunately we did not have any suprapubic catheters in stock. Your home health nurse could swap out to a suprapubic catheter at their next convenience or with the next catheter change. Continue usual medications. Return if problems. Discharge Date/Time: 12/03/21 18:00
[2021-12-03 18:39] VITALS: BP 114/78
== END 2021-12-03 18:00 | disposition home or self-care (01) ==
LOC: EDUNIT# → ED 14:52
DX: T83.010A Breakdown (mechanical) of cystostomy catheter, initial encounter (principal)
CPT/HCPCS: 99282; 99283; J1170

== ENCOUNTER 2021-12-03 18:20 | Outpatient (CLI) | payer MEDICARE, MEDICAID | END 2021-12-03 18:21 | disposition home or self-care (01) | LOC: EMS 18:20 | PROVIDERS: ATTEND Emergency Medicine | DX: Z46.82 Encounter for fitting and adjustment of non-vascular catheter (principal); Z74.01 Bed confinement status | CPT/HCPCS: A0425; A0428 ==

== ENCOUNTER 2022-02-27 03:35 | Emergency (ER) | payer MEDICARE, MEDICAID ==
--- NOTE | 2022-02-27 03:34 | ED Physician Documentation ---
PD HPI NVD - Stated complaint Stated Complaint: NAUSEA - History obtained from History obtained from: Patient, EMS - History of Present Illness Timing - onset: How many days ago (5) Timing - details: Gradual onset Associated symptoms: Dizzy. No: Fever Improved by: Laying still Worsened by: Moving - Additonal information Additional information: patient TAE , c/o five days of nausea but denies vomiting. She also describes dizziness with sensation of spinning when she is lying still, and this sensation sets off the nausea. She recently started keflex for UTI. She has a chronic indwelling suprapubic catheter. She was given zofran en route by medics and reports resolution of the nausea with this Review of Systems Constitutional: denies: Fever Respiratory: denies: Dyspnea, Cough GI: reports: Nausea. 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 : Indwelling catheter HEENT: Chronic vision loss Psych: Depression, Anxiety, Bipolar disorder, Post traumatic stress disorder Musculoskeletal: Osteoarthritis, Other Derm: Psoriasis - Past Surgical History Past Surgical History: Yes General: Hiatal hernia repair, EGD Ortho: Other /ORACLE WMS CONSULTANT: section, Hysterectomy - Present Medications Home Medications: Ambulatory Orders Medication Instructions Recorded Confirmed Propranolol [Inderal] 20 mg PO TID 04/27/13 06/26/21 Enalapril [Vasotec] 5 mg ORAL DAILY 05/14/14 06/26/21 Nystatin Cream [Mycostatin Cream] 1 applic TOP BID PRN #60 g 12/30/15 06/26/21 Citalopram Hydrobromide [Celexa] 10 mg PO DAILY 08/22/16 06/26/21 Oxybutynin Chloride [Ditropan Xl] 10 mg PO DAILY 01/23/17 06/26/21 Quetiapine Fumarate [Seroquel Xr] 300 mg PO DAILY PM 01/23/17 06/26/21 oxyCODONE/ACET 5/325 [Percocet 5 1 tab PO BID MDD 2 03/16/17 06/26/21 mg/325 mg] Zolpidem Tartrate [Ambien] 10 mg PO QPM PRN 06/05/17 06/26/21 ARIPiprazole [Abilify] 20 mg PO DAILY 08/28/17 06/26/21 Hydrocortisone 1% Oint 1 gm TP TID PRN 08/28/17 06/26/21 [Hydrocortisone] hydrOXYzine pamoate [Hydroxyzine 25 mg PO DAILY PRN 07/09/18 06/26/21 Pamoate] Loperamide [Imodium] 2 mg PO TID PRN 04/29/19 06/26/21 Cod Liver Oil/Zinc Oxide [Desitin] 1 applic TOP TID 14 Days #1 tube 09/03/19 06/26/21 Cranberry 1 tab PO DAILY 06/22/20 06/26/21 Ondansetron Odt [Zofran Odt] 4 mg TL Q6H PRN #10 tablet 07/04/20 06/26/21 Ketoconazole/Hydrocortisone [Pheyo 1 gm TP DAILY #30 cream..g. 07/15/20 06/26/21 2.5%-2% Cream] Albuterol Sulf [Ventolin Hfa 2 puffs INH Q4HR PRN 02/16/21 06/26/21 Inhaler] Dexlansoprazole [Dexilant] 30 mg PO DAILY 02/16/21 06/26/21 Famotidine [Pepcid] 20 mg PO DAILY 02/16/21 06/26/21 Ferrous Sulfate 325 mg PO BIDWM 02/16/21 06/26/21 Hyoscyamine [Levsin] 0.125 mg SL BID PRN 02/16/21 06/26/21 Loratadine [Claritin] 10 mg PO DAILY 02/16/21 06/26/21 Meloxicam [Mobic] 15 mg PO DAILY 02/16/21 06/26/21 buPROPion [Wellbutrin Xl] 150 mg PO DAILY 02/16/21 06/26/21 Multivitamin W/Minerals [Theragran 1 tab PO QDLUNCH #30 tablet 03/01/21 06/26/21 M] Silver Sulfadiazine Cream 1 applic TOP BID #2 tu 03/01/21 06/26/21 [Silvadene Cream] Meclizine [Antivert] 25 mg PO Q6H PRN #14 tablet 02/27/22 Ondansetron Odt [Zofran Odt] 4 mg TL Q6H PRN #10 tablet 02/27/22 - Allergies Allergies/Adverse Reactions: Allergies Allergy/AdvReac Type Severity Reaction Status Date / Time phenazopyridine Allergy Unknown Verified 02/27/22 03:40 [From Pyridium] paroxetine HCl * [From Paxil] AdvReac Intermediate Emesis Verified 02/27/22 03:40 codeine [Codeine] AdvReac Pass Out Verified 02/27/22 03:40 - Social History Does the pt smoke?: No Smoking Status: Never smoker Does the pt drink ETOH?: No Does the pt have substance abuse?: No - Immunizations Immunizations are current?: Yes - POLST Patient has POLST: No PD ED PE NORMAL - Vitals Vital signs reviewed: Yes - General General: No acute distress, Well developed/nourished, Other (sleepy but awakens to voice; even when awake, prefers to keep eyes closed due to vertigo when open (I asked her if this is the case and she confirms it is why she is mostly keeping eyes closed)) - HEENT HEENT: PERRL, EOMI, Moist mucous membranes, Other (rotatory nystagmus when eyes are open, accentuated with horizontal gaze in either direction) - Cardiac Cardiac: RRR - Respiratory Respiratory: No respiratory distress, Clear bilaterally - Abdomen Abdomen: Soft, Non tender, Non distended, Other (suprapubic catheter site is c/d/i without erythema or discharge) - Derm Derm: Normal color, Warm and dry Results - Vitals Vitals: Oxygen O2 Source Room air PD MEDICAL DECISION MAKING - ED course Complexity details: reviewed old records, considered differential, d/w patient ED course: chief complaint of nausea which resolved with one dose of zofran given by EMS en route. In discussing HPI, she also is describing dizziness and I note nystagmus on exam; she describes spinning sensation and thus vertigo is likely diagnosis as well as probably cause, or at least contributor, to the nausea. She is given meclizine and discharged, with prescriptions for both meclizine and zofran provided. Departure - Departure Disposition: 01 Home, Self Care Clinical Impression: Nausea, Vertigo Condition: Good Instructions: Meclizine, ED Vertigo Unspecified Follow-Up: Bennie Hill MD [Primary Care Provider] - Prescriptions: Meclizine [Antivert] 25 mg PO Q6H PRN #14 tablet PRN Reason: Vertigo Ondansetron Odt [Zofran Odt] 4 mg TL Q6H PRN #10 tablet PRN Reason: Nausea / Vomiting Comments: You are describing symptoms of vertigo (sensation of spinning despite lying still). This is usually an inner ear problem and typically resolves without specific intervention. It can last a few hours to a week or more. If it is recurrent or persistent, your primary care provider can refer you to a specialist for testing and treatment options. A prescription for meclizine has been provided; this can help with the vertigo / spinning sensation. A prescription for ondansetron has been provided; this can help with nausea. Discharge Date/Time: 02/27/22 06:09
[2022-02-27] MEDS ORDERED: MECLIZINE 12.5 MG TABLET PO STA (04:05)
[2022-02-27 05:14] VITALS: BP 84/60
== END 2022-02-27 06:09 | disposition home or self-care (01) ==
LOC: EDBD → ED 03:35
DX: R42 Dizziness and giddiness (principal)
CPT/HCPCS: 99283; A9270

== ENCOUNTER 2022-03-01 09:07 | Outpatient (CLI) | payer MEDICARE | END 2022-03-01 09:08 | disposition critical access hospital (66) | LOC: EMS 09:07 | DX: R10.13 Epigastric pain (principal); R40.0 Somnolence; R41.0 Disorientation, unspecified | CPT/HCPCS: A0425; A0429 ==

== ENCOUNTER 2022-03-01 13:31 | Outpatient (CLI) | payer MEDICARE, MEDICAID | END 2022-03-01 13:32 | disposition home or self-care (01) | LOC: EMS 13:31 | PROVIDERS: ATTEND Emergency Medicine | DX: Z74.01 Bed confinement status (principal) | CPT/HCPCS: A0425; A0428 ==

== ENCOUNTER 2022-03-04 10:15 | Outpatient (CLI) | payer MEDICARE, MEDICAID ==
[2022-03-04 13:12] LABS: ABSOLUTE RETICS # AUTO 0.049 10^6/uL (0.020-0.110); BASOPHILS % (AUTO) 0.7 %; EOSINOPHILS # (AUTO) 0.1 10^3/uL (0.0-0.7); EOSINOPHILS % (AUTO) 2.3 %; HCT - HEMATOCRIT 31.9 % (37.0-47.0); HGB - HEMOGLOBIN 9.8 g/dL (12.0-16.0); LYMPHOCYTES # (AUTO) 1.1 10^3/uL (1.5-3.5); LYMPHOCYTES % (AUTO) 18.6 %; MEAN CORPUSCULAR HEMOGLOBIN 23.6 pg (27.0-31.0); MEAN CORPUSCULAR HGB CONC 30.7 g/dL (32.0-36.0); MEAN CORPUSCULAR VOLUME 76.7 fL (81.0-99.0); MEAN PLATELET VOLUME 10.4 fL (7.9-10.8); MONOCYTES # (AUTO) 0.5 10^3/uL (0.0-1.0); MONOCYTES % (AUTO) 7.4 %; NEUTROPHILS # (AUTO) 4.3 10^3/uL (1.5-6.6); NEUTROPHILS % (AUTO) 70.2 %; PLT - PLATELET COUNT 315 10^3/uL (130-450); RED BLOOD COUNT 4.16 10^6/uL (4.20-5.40); RETICULOCYTE COUNT % (AUTO) 1.17 % (0.5-2.3); WHITE BLOOD COUNT 6.1 x10^3/uL (4.8-10.8)
[2022-03-04 13:43] LABS: THYROID STIMULATING HORMONE 0.68 uIU/mL (0.34-5.60)
[2022-03-04 13:51] LABS: FERRITIN 6.5 ng/mL (11.0-306.8)
[2022-03-04 13:53] LABS: % IRON SATURATION 7 % (20-50); ALBUMIN 2.9 g/dL (3.2-5.5); ALBUMIN/GLOBULIN RATIO 0.7 (1.0-2.2); ALKALINE PHOSPHATASE 70 IU/L (42-121); ALT ALANINE AMINOTRANSFERASE 11 IU/L (10-60); AST ASPARTATE AMINOTRANSFERASE 16 IU/L (10-42); BILIRUBIN,TOTAL 0.4 mg/dL (0.2-1.0); BUN - BLOOD UREA NITROGEN 12 mg/dL (6-20); CALCIUM 8.7 mg/dL (8.5-10.3); CARBON DIOXIDE - CO2 23 mmol/L (21-32); CHLORIDE 102 mmol/L (101-111); CHOLESTEROL 149 mg/dL; CREATININE 0.6 mg/dL (0.4-1.0); GFR - MDRD 105 (>89); GLUCOSE 94 mg/dL (70-100); HDL CHOLESTEROL 50 mg/dL; IRON 19 ug/dL (28-170); LDL CHOLESTEROL,CALCULATED 80 mg/dL; LDL/HDL RATIO 1.6 (<4.4); SODIUM 132 mmol/L (135-145); TOTAL IRON BINDING CAPACITY 272 ug/dL (250-450); TOTAL PROTEIN 6.9 g/dL (6.7-8.2); TRANSFERRIN 194 mg/dL (192-382); TRIGLYCERIDES 95 mg/dL; VLDL CHOLESTEROL 19 mg/dL
[2022-03-04 13:54] LABS: FOLATE 11.9 ng/mL (5.90 - >24.8)
[2022-03-04 14:20] LABS: ESTIMATED AVERAGE GLUCOSE 108 mg/dL (70-100); HEMOGLOBIN A1c% 5.4 % (4.27-6.07)
== END 2022-03-04 10:16 | disposition home or self-care (01) ==
LOC: LAB.N 10:15
PROVIDERS: ATTEND Family Medicine
DX: I10 Essential (primary) hypertension (principal); J45.909 Unspecified asthma, uncomplicated; N31.9 Neuromuscular dysfunction of bladder, unspecified; R73.9 Hyperglycemia, unspecified; G60.9 Hereditary and idiopathic neuropathy, unspecified; G80.8 Other cerebral palsy; D50.9 Iron deficiency anemia, unspecified; F31.30 Bipolar disorder, current episode depressed, mild or moderate severity, unspecified
CPT/HCPCS: 36415; 80053; 80061; 82607; 82728; 82746; 82747; 83036; 83540; 83721; 84443; 84466; 85014; 85025; 85045

== ENCOUNTER 2022-05-09 11:10 | Inpatient (IN) | payer MEDICARE, MEDICAID ==
[2022-05-09] MEDS ORDERED: MEROPENEM 1 GM in SODIUM CHLORIDE 0.9% MINIBAG 100 ML IV STA (11:39)
[2022-05-09] MEDS ORDERED: LACTATED RINGERS 1,000 ML IV STA ×2 (11:40→12:23)
[2022-05-09] MEDS ORDERED: SODIUM CHLORIDE 0.9% 1,000 ML IV STA (11:40)
--- NOTE | 2022-05-09 12:14 | ED Physician Documentation ---
History of Present Illness - Stated complaint Stated Complaint: LOW BP - Chief complaint Chief Complaint: General - History obtained from History obtained from: Patient - Additonal information Additional information: 52-year-old woman with history of cerebral palsy, hysterectomy, frequent UTIs and catheter dependence presents from wound care in shock. She had a lithotripsy of a large kidney stone 2 days ago. She went to wound care today where she had her lower extremity wounds addressed, and I spoke with nurse practitioner Leydi who reviewed the wounds, which I did not since they are now dressed but assures me that they are not a source of shock or infection. Her pressure there was 50/30 or so. She feels weak and lethargic. No new pain. She does feel like she has a bladder infection but she cannot elaborate on the particular symptoms. 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: None : Indwelling catheter HEENT: Chronic vision loss Psych: Depression, Anxiety, Bipolar disorder, Post traumatic stress disorder Musculoskeletal: Osteoarthritis, Other Derm: Psoriasis - Past Surgical History Past Surgical History: Yes General: Hiatal hernia repair, EGD Ortho: Other /NET SOFTWARE DEVELOPER: section, Hysterectomy - Present Medications Home Medications: Ambulatory Orders Medication Instructions Recorded Confirmed Propranolol [Inderal] 20 mg PO TID 04/27/13 03/18/22 Enalapril [Vasotec] 5 mg ORAL DAILY 05/14/14 03/18/22 Citalopram Hydrobromide [Celexa] 10 mg PO DAILY 08/22/16 03/18/22 Oxybutynin Chloride [Ditropan Xl] 10 mg PO DAILY 01/23/17 03/18/22 Quetiapine Fumarate [Seroquel Xr] 300 mg PO DAILY PM 01/23/17 03/18/22 ARIPiprazole [Abilify] 20 mg PO DAILY 08/28/17 03/18/22 hydrOXYzine pamoate [Hydroxyzine 25 mg PO DAILY PRN 07/09/18 03/01/22 Pamoate] Dexlansoprazole [Dexilant] 30 mg PO DAILY 02/16/21 03/18/22 Meloxicam [Mobic] 15 mg PO DAILY 02/16/21 03/18/22 buPROPion [Wellbutrin Xl] 150 mg PO DAILY 02/16/21 03/18/22 Multivitamin W/Minerals [Theragran 1 tab PO QDLUNCH #30 tablet 03/01/21 03/18/22 M] Meclizine [Antivert] 25 mg PO Q6H PRN #14 tablet 02/27/22 03/01/22 Ondansetron Odt [Zofran Odt] 4 mg TL Q6H PRN #10 tablet 02/27/22 03/01/22 - Allergies Allergies/Adverse Reactions: Allergies Allergy/AdvReac Type Severity Reaction Status Date / Time phenazopyridine Allergy Unknown Verified 05/09/22 11:45 [From Pyridium] paroxetine HCl * [From Paxil] AdvReac Intermediate Emesis Verified 05/09/22 11:45 codeine [Codeine] AdvReac Pass Out Verified 05/09/22 11:45 - Social History Does the pt smoke?: No Smoking Status: Never smoker Does the pt drink ETOH?: No Does the pt have substance abuse?: No - Immunizations Immunizations are current?: Yes - POLST Patient has POLST: No PD ED PE NORMAL - Vitals Vital signs reviewed: Yes (She is in shock) - General General: Other (Alert and oriented x2, cooperative) - HEENT HEENT: Other (Lazy eye) - Neck Neck: Supple, no meningeal sign, No bony TTP - Cardiac Cardiac: RRR, No murmur - Respiratory Respiratory: No respiratory distress, Clear bilaterally - Abdomen Abdomen: Normal bowel sounds, Soft, Non tender - Female Female : Other (suprapubic cath in place) - Back Back: No CVA TTP, No spinal TTP - Derm Derm: Normal color, Warm and dry - Extremities Extremities: Other (Lower extremity wounds dressed and in Unna boots) - Neuro Neuro: No motor deficit, No sensory deficit Eye Opening: To Voice Motor: Obeys Commands Verbal: Confused GCS Score: 13 Results - Vitals Vitals: Vital Signs - 24 hr 05/09/22 05/09/22 05/09/22 11:37 12:39 13:27 Temperature 37.9 C Heart Rate 100 86 66 Respiratory 20 13 15 Rate Blood Pressure 60/42 L 54/45 L 87/62 L O2 Saturation 98 91 L 95 05/09/22 05/09/22 05/09/22 13:30 14:00 14:30 Temperature Heart Rate 90 90 93 Respiratory 16 14 14 Rate Blood Pressure 86/66 L 79/55 L 102/83 H O2 Saturation 96 97 97 05/09/22 05/09/22 05/09/22 15:00 15:21 15:26 Temperature Heart Rate 94 93 94 Respiratory 20 24 20 Rate Blood Pressure 86/52 L 87/67 L 83/69 L O2 Saturation 100 100 100 05/09/22 05/09/22 16:38 16:53 Temperature Heart Rate 90 93 Respiratory 12 16 Rate Blood Pressure 86/54 L 84/70 L O2 Saturation 95 96 Oxygen O2 Source Room air - EKG (time done) 1239 Rate: Rate (enter#) (86) Rhythm: NSR [place]: LAD Intervals: Prolonged QT, Wide QRS QRS: Low voltage Ischemia: T wave inversion (v2-v2). No: ST elevation c/w ischemia, ST depression Compare to prior EKG: Changed from prior EKG (Low voltage is old compared to March 18 of this year, but new intraventricular conduction delay, new deeply inverted T waves, and new long QT) 1810 Rate: Rate (enter#) (89) Rhythm: NSR [place]: Normal Intervals: Prolonged DE, Prolonged QT (But better than first EKG) QRS: Low voltage Ischemia: T wave inversion (Anterolateral T wave inversion). No: ST elevation c/w ischemia, ST depression - Labs Labs: Laboratory Tests 05/09/22 05/09/22 05/09/22 12:10 12:10 12:10 WBC 32.4 H RBC 3.64 L Hgb 10.5 L Hct 31.9 L MCV 87.6 MCH 28.8 MCHC 32.9 RDW 20.0 H Plt Count 176 MPV 10.0 Neut # (Auto) Not Reportable Lymph # (Auto) Not Reportable [place] # (Auto) Not Reportable Eos # (Auto) Not Reportable Baso # (Auto) Not Reportable Absolute Nucleated RBC Not Reportable Total Counted 100 Band Neuts % (Manual) 2 Abnorm Lymph % (Manual) 0 Nucleated RBC % Not Reportable Neutrophils # (Manual) 30.8 H Lymphocytes # (Manual) 0.3 L Monocytes # (Manual) 1.3 H Eosinophils # (Manual) 0.0 Basophils # (Manual) 0.0 Differential Comment MANUAL DIFFERENTIAL Manual Slide Review Indicated WBC Morphology NORMAL APPEARANCE Platelet Estimate NORMAL (130-450,000) Platelet Morphology NORMAL APPEARANCE RBC Morph Micro Appear 3+ ANISOCYTOSIS Sodium 135 Potassium 3.6 Chloride 101 Carbon Dioxide 22 Anion Gap 12.0 BUN 36 H Creatinine 1.3 H Estimated GFR (MDRD) 43 L Glucose 99 Lactic Acid 1.1 Calcium 8.5 Total Bilirubin 0.6 AST 18 ALT 20 Alkaline Phosphatase 75 Total Protein 6.4 L Albumin 2.1 L Globulin 4.3 H Albumin/Globulin Ratio 0.5 L Urine Color Urine Clarity Urine pH Ur Specific [place] Urine Protein Urine Glucose (UA) Urine Ketones Urine Occult Blood Urine Nitrite Urine Bilirubin Urine Urobilinogen Ur Leukocyte Esterase Urine RBC Urine WBC Ur Squamous Epith Cells Urine Bacteria Urine Yeast Urine Culture Comments Nasal Adenovirus (PCR) Nasal B. parapertussis DNA (PCR) Nasal Coronavir 229E PCR Nasal Coronavir HKU1 PCR Nasal Coronavir NL63 PCR Nasal Coronavir OC43 PCR Nasal Enterovir/Rhinovir PCR Nasal Influenza B PCR Nasal Influenza A PCR Nasal Parainfluen 1 PCR Nasal Parainfluen 2 PCR Nasal Parainfluen 3 PCR Nasal Parainfluen 4 PCR Nasal RSV (PCR) Nasal B.pertussis DNA PCR Nasal C.pneumoniae (PCR) Pool Human Metapneumo PCR Nasal M.pneumoniae (PCR) Nasal SARS-CoV-2 (PCR) 05/09/22 05/09/22 12:30 15:05 WBC RBC Hgb Hct MCV MCH MCHC RDW Plt Count MPV Neut # (Auto) Lymph # (Auto) [place] # (Auto) Eos # (Auto) Baso # (Auto) Absolute Nucleated RBC Total Counted Band Neuts % (Manual) Abnorm Lymph % (Manual) Nucleated RBC % Neutrophils # (Manual) Lymphocytes # (Manual) Monocytes # (Manual) Eosinophils # (Manual) Basophils # (Manual) Differential Comment Manual Slide Review WBC Morphology Platelet Estimate Platelet Morphology RBC Morph Micro Appear Sodium Potassium Chloride Carbon Dioxide Anion Gap BUN Creatinine Estimated GFR (MDRD) Glucose Lactic Acid Calcium Total Bilirubin AST ALT Alkaline Phosphatase Total Protein Albumin Globulin Albumin/Globulin Ratio Urine Color BROWN Urine Clarity CLOUDY Urine pH 5.5 Ur Specific [place] >=1.030 H Urine Protein 100 H Urine Glucose (UA) NEGATIVE Urine Ketones TRACE Urine Occult Blood LARGE H Urine Nitrite POSITIVE H Urine Bilirubin NEGATIVE Urine Urobilinogen 0.2 (NORMAL) Ur Leukocyte Esterase LARGE H Urine RBC TNTC H Urine WBC >25 H Ur Squamous Epith Cells RARE Squamous Urine Bacteria Many H Urine Yeast PRESENT Urine Culture Comments INDICATED Nasal Adenovirus (PCR) NOT DETECTED Nasal B. parapertussis DNA (PCR) NOT DETECTED Nasal Coronavir 229E PCR NOT DETECTED Nasal Coronavir HKU1 PCR NOT DETECTED Nasal Coronavir NL63 PCR NOT DETECTED Nasal Coronavir OC43 PCR NOT DETECTED Nasal Enterovir/Rhinovir PCR NOT DETECTED Nasal Influenza B PCR NOT DETECTED Nasal Influenza A PCR NOT DETECTED Nasal Parainfluen 1 PCR NOT DETECTED Nasal Parainfluen 2 PCR NOT DETECTED Nasal Parainfluen 3 PCR NOT DETECTED Nasal Parainfluen 4 PCR NOT DETECTED Nasal RSV (PCR) NOT DETECTED Nasal B.pertussis DNA PCR NOT DETECTED Nasal C.pneumoniae (PCR) NOT DETECTED Pool Human Metapneumo PCR NOT DETECTED Nasal M.pneumoniae (PCR) NOT DETECTED Nasal SARS-CoV-2 (PCR) NOT DETECTED Procedures - Central Line Central Line Preparation: Consent Obtained (verbal), Time out completed, Ultrasound used, Sterile prep and drape Central line location: Right IJ Central line type: Triple lumen Central line aftercare: Chlorhexidine disc placed, Secured, Placement confirmed, No pneumothorax, No complications, Bundle checklist complete, Pt tolerated well PD MEDICAL DECISION MAKING - ED course ED course: This is a 52-year-old woman with cerebral palsy who presents in shock. She has frequent UTIs and has had a lithotripsy just a couple of days ago. She is a difficult IV stick and consented to central line which apparently was necessary regardless Given the likely need for pressor use and this was placed. She was very hypovolemic on bedside ultrasound of the internal jugular making threading of the wire difficult even in extreme Trendelenburg but eventually we got the line and she was given large-volume fluid resuscitation and meropenem after blood cultures were obtained. Given the recent lithotripsy concern for persistent obstruction was present and a CT was done showing no evidence of that. She does have very elevated white count and mild to moderate BRYN. She did end up requiring pressors and Levophed was begun. At approximately 2:30 PM I spoke with Dr. Deon Elias, a urologist in [place] who confirms there is no intervention needed. Unfortunately right now there is no bed in our ICU, but I spoke with our hospitalist around 2:45 PM who feels that 1 patient may be transferred out later today. Dr. Stratton called me back around 5:15 PM and I presented the case to her as now an ICU bed is open. - Critical Care Time(min): 50 Time Includes: Direct patient care, Review records, Reassess patient, Document care, Coordinate care, Medical consult, Family consult for tx dec Data interpretation: Labs, Pulse ox Procedures included in critical care time: Blood draw Procedures excluded from critical care time: Central IV, EKG Departure - Departure Disposition: 66 [facility] DC/Xfer Clinical Impression: Complicated UTI (urinary tract infection), Neurogenic bladder, Septic shock Condition: Critical
[2022-05-09 12:15] LABS: BASOPHILS % (AUTO) 0.4 %; HCT - HEMATOCRIT 31.9 % (37.0-47.0); HGB - HEMOGLOBIN 10.5 g/dL (12.0-16.0); LYMPHOCYTES % (AUTO) 2.1 %; MEAN CORPUSCULAR HEMOGLOBIN 28.8 pg (27.0-31.0); MEAN CORPUSCULAR HGB CONC 32.9 g/dL (32.0-36.0); MEAN CORPUSCULAR VOLUME 87.6 fL (81.0-99.0); MONOCYTES % (AUTO) 3.8 %; NEUTROPHILS % (AUTO) 92.4 %; PLT - PLATELET COUNT 176 10^3/uL (130-450); RED BLOOD COUNT 3.64 10^6/uL (4.20-5.40); WHITE BLOOD COUNT 32.4 x10^3/uL (4.8-10.8)
[2022-05-09 12:17] LABS: SLIDE REVIEW? Indicated
[2022-05-09 12:28] LABS: ALBUMIN 2.1 g/dL (3.2-5.5); ALBUMIN/GLOBULIN RATIO 0.5 (1.0-2.2); BILIRUBIN,TOTAL 0.6 mg/dL (0.2-1.0); CALCIUM 8.5 mg/dL (8.5-10.3); CREATININE 1.3 mg/dL (0.4-1.0); POTASSIUM 3.6 mmol/L (3.5-5.0); TOTAL PROTEIN 6.4 g/dL (6.7-8.2)
[2022-05-09 12:39] LABS: ABNORMAL LYMPHS % (MANUAL) 0 %
[2022-05-09] MEDS ORDERED: NOREPINEPHRINE/D5W 8 MG/250 ML BAG IV STA (12:39)
[2022-05-09 12:42] LABS: BAND NEUTROPHILS % (MANUAL) 2 %; LYMPHOCYTES # (MANUAL) 0.3 10^3/uL (1.5-3.5); LYMPHOCYTES % (MANUAL) 1 %; MONOCYTES # (MANUAL) 1.3 10^3/uL (0.0-1.0); NEUTROPHILS # (MANUAL) 30.8 10^3/uL (1.5-6.6)
[2022-05-09 12:43] LABS: DIFFERENTIAL COMMENT MANUAL DIFFERENTIAL; PLATELET ESTIMATE, MANUAL NORMAL (130-450,000) (NORMAL); PLATELET MORPHOLOGY NORMAL APPEARANCE (NORMAL); RBC MORPHOLOGY (MULTIPLE) 3+ ANISOCYTOSIS (NORMAL); WBC MORPHOLOGY (MULTIPLE) NORMAL APPEARANCE (NORMAL)
--- NOTE | 2022-05-09 12:45 | XRAY Report ---
PROCEDURE: Chest for Line Placement INDICATIONS: RIJ CVC TECHNIQUE: One view of the chest was acquired. COMPARISON: Chest x-ray 03/19/2022 FINDINGS: Surgical changes and devices: Right-sided central venous catheter is present at the right atrial/inf erior vena cava junction. Lungs and pleura: Patient is markedly rotated. There are overlapping osseous and soft tissue structu res within the right upper lobe secondary to rotation. Mediastinum: Mediastinal contours appear normal. Heart size is normal. Bones and chest wall: No suspicious bony lesions. Overlying soft tissues appear unremarkable. IMPRESSION: Right central venous catheter support lines as above. Patient is markedly rotated with overlapping osseous and soft tissue structures obscuring evaluation of the right upper lobe. Repeat chest x-ray is recommended with better patient positioning to exclude pneumothorax. Reviewed by: Christine Mantilla MD on 05/09/2022 12:44 PM PDT Approved by: Christine Mantilla MD on 05/09/2022 12:44 PM PDT Station ID: [id number]
[2022-05-09 12:54] LABS: BILIRUBIN,URINE NEGATIVE (NEGATIVE); CLARITY,URINE CLOUDY (CLEAR); GLUCOSE, URINE (UA) NEGATIVE (NEGATIVE); KETONES,URINE (UA) TRACE mg/dL (NEGATIVE); LEUKOCYTE ESTERASE, URINE LARGE (NEGATIVE); NITRITE,URINE POSITIVE (NEGATIVE); OCCULT BLOOD,URINE LARGE (NEGATIVE); PH,URINE 5.5 PH (5.0-7.5); PROTEIN,URINE 100 mg/dL (NEGATIVE); UROBILINOGEN,URINE 0.2 (NORMAL) E.U./dL (NORMAL)
[2022-05-09 13:05] LABS: BACTERIA,URINE Many /HPF (None Seen); RBC,URINE TNTC /HPF (0-5); SQUAMOUS EPITHELIAL CELL,UR RARE Squamous (<= Few); WBC,URINE >25 /HPF (0-5); YEAST,URINE PRESENT
--- NOTE | 2022-05-09 14:10 | CT Report ---
PROCEDURE: Abdomen/Pelvis WO INDICATIONS: shock, poss sepsis, recent lithotripsy TECHNIQUE: Noncontrast 5 mm thick sections acquired from the diaphragms to the symphysis. 5 mm coronal and sagi ttal reformats were then performed. For radiation dose reduction, the following was used: automated exposure control, adjustment of mA and/or kV according to patient size. COMPARISON: None. FINDINGS: Image quality: Excellent. ABDOMEN: Lung bases: Lung bases are clear. Heart size is normal. Solid organs: Liver is enlarged with steatosis. The Gallbladder is unremarkable. Pancreas is normal in contours. No adrenal nodules. There is been interval placement of a right ureterovesicular stent . There is no hydronephrosis. Previously identified right ureteral calculus is no longer visualized. Peritoneum and bowel: Unenhanced bowel loops demonstrate normal wall thickness and caliber. No free fluid or air. Moderate colonic stool without obstruction. Nodes and vessels: No retroperitoneal or mesenteric adenopathy by size criteria. Aorta and inferior vena cava are normal in caliber. Miscellaneous: No ventral hernias. Prominent hiatal hernia. PELVIS: Genitourinary: Bladder is decompressed with a percutaneous catheter. No bladder stones. Miscellaneous: No inguinal hernias or adenopathy. Bones: No suspicious bony lesions. No vertebral body compression fractures. IMPRESSION: Interval right ureterovesicular stent placement. Previous right ureteral calculus is no longer visual ized. No obstruction. Reviewed by: Christine Mantilla MD on 05/09/2022 2:08 PM PDT Approved by: Christine Mantilla MD on 05/09/2022 2:08 PM PDT Station ID: [id number]
[2022-05-09 16:11] LABS: B. PARAPERTUSSIS- RESP PCR PAN NOT DETECTED; B. PERTUSSIS- RESP PCR PANEL NOT DETECTED; C. PNEUMONIAE- RESP PCR PANEL NOT DETECTED; CORONAVIRUS 229E-RESP PCR NOT DETECTED; CORONAVIRUS HKU1-RESP PCR NOT DETECTED; CORONAVIRUS NL63-RESP PCR NOT DETECTED; CORONAVIRUS OC43-RESP PCR NOT DETECTED; HUMAN METAPNEUMOVIRUS NOT DETECTED; INFLUENZA A- RESP PCR PANEL NOT DETECTED; INFLUENZA B - RESP PCR PANEL NOT DETECTED; M. PNEUMONIAE- RESP PCR PANEL NOT DETECTED; PARAINFLUENZA VIRUS 1 NOT DETECTED; PARAINFLUENZA VIRUS 2 NOT DETECTED; PARAINFLUENZA VIRUS 3 NOT DETECTED; PARAINFLUENZA VIRUS 4 NOT DETECTED; RHINOVIRUS/ENTEROVIRUS NOT DETECTED; RSV- RESP PCR PANEL NOT DETECTED; SARS-CoV-2 -RESP PCR PANEL NOT DETECTED
--- NOTE | 2022-05-09 17:50 | HISTORY & PHYSICAL EXAMINATION ---
History of Present Illness - Admitted From Admitted From:: ED - History Obtained From History obtained from: ED provider and chart review - History of Present Illness HPI Comment/Other: This is a 52-year-old WF with history of hypertension, GERD, depression, PTSD, cerebral palsy with neurogenic bladder, chronic indwelling suprapubic bladder catheter, and has had frequent UTIs in the past. She is bedbound and has contractures, she has a wheelchair and gets a visiting nurse and also was on many chronic oral antibiotics. In February 2021, she was admitted here for treating sacral decubiti and sacral cellulitis. 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 Today she presented to [facility] wound clinic and MEDICAL ACCOUNTING CLERK Brendain found to be hypotensive, BP 50/30 and she was somnolent and sent pt to the emergency room. In the ED her work-up shows that she has urosepsis with an abnormal urinalysis, White blood count 32, lactic acid normal, newly elevated creatinine of 1.3 (usual is 0.9) and BP 60/40. She had abdominal CT that showed no obstruction. Urology was contacted because she had just had lithotripsy 2 days ago with a stent in place. Urology told our ED provider that no other procedure is needed currently. She was started on Levophed, got 3 L of crystalloids and has been started on iv meropenem after blood cultures were done. Of note her EKG shows new deep T wave inversions in V2 and V3, and troponins are still pending. The ED provider has reached out to the Hospitalist team to admit this patient for septic shock from urinary source related to a chronic suprapubic catheter which is required for neurogenic bladder in a patient with cerebral palsy, and also possibly caused by the recent urinary tract manipulation (lithotripsy). Patient has an Advance Care Plan in the EMR, signed February 2022 that indicates she wants full treatment and full CODE STATUS unless she is in a vegetative state. History - Past Medical History Cardiovascular: reports: Hypertension Respiratory: reports: Asthma, Other Neuro: reports: Cerebral palsy Endocrine/Autoimmune: reports: Other GI: reports: GERD WOOD SASH AND FRAME CARPENTER: reports: None : reports: Indwelling catheter HEENT: reports: Chronic vision loss Psych: reports: Depression, Anxiety, Bipolar disorder, Post traumatic stress disorder Musculoskeletal: reports: Osteoarthritis, Other Derm: reports: Psoriasis MRSA Hx?: Yes - Past Surgical History General: reports: Hiatal hernia repair, EGD Ortho: reports: Other /WOOD SASH AND FRAME CARPENTER: reports: section, Hysterectomy - Family & Social History Family History: Brother: Alive and Well Family History Comment/Other: She was adopted Social History Notes: Patient does not drink alcohol. She quit smoking 20+ years ago. - Substance History Use: Uses substance without health or social issues: NONE - POLST Patient has POLST: No Meds/Allgy - Home Medications Home Medications: Ambulatory Orders Medication Instructions Recorded Confirmed Propranolol [Inderal] 20 mg PO TID 04/27/13 03/18/22 Enalapril [Vasotec] 5 mg ORAL DAILY 05/14/14 03/18/22 Citalopram Hydrobromide [Celexa] 10 mg PO DAILY 08/22/16 03/18/22 Oxybutynin Chloride [Ditropan Xl] 10 mg PO DAILY 01/23/17 03/18/22 Quetiapine Fumarate [Seroquel Xr] 300 mg PO DAILY PM 01/23/17 03/18/22 ARIPiprazole [Abilify] 20 mg PO DAILY 08/28/17 03/18/22 hydrOXYzine pamoate [Hydroxyzine 25 mg PO DAILY PRN 07/09/18 03/01/22 Pamoate] Dexlansoprazole [Dexilant] 30 mg PO DAILY 02/16/21 03/18/22 Meloxicam [Mobic] 15 mg PO DAILY 02/16/21 03/18/22 buPROPion [Wellbutrin Xl] 150 mg PO DAILY 02/16/21 03/18/22 Multivitamin W/Minerals [Theragran 1 tab PO QDLUNCH #30 tablet 03/01/21 03/18/22 M] Meclizine [Antivert] 25 mg PO Q6H PRN #14 tablet 02/27/22 03/01/22 Ondansetron Odt [Zofran Odt] 4 mg TL Q6H PRN #10 tablet 02/27/22 03/01/22 - Allergies Allergies/Adverse Reactions: Allergies Allergy/AdvReac Type Severity Reaction Status Date / Time phenazopyridine Allergy Unknown Verified 05/09/22 11:45 [From Pyridium] paroxetine HCl * [From Paxil] AdvReac Intermediate Emesis Verified 05/09/22 11:45 codeine [Codeine] AdvReac Pass Out Verified 05/09/22 11:45 Exam - Vital Signs Reviewed Vital Signs: Yes Vital Signs: Vital Signs x48h Temp Pulse Resp BP Pulse Ox 05/09/22 16:53 93 16 84/70 L 96 05/09/22 16:38 90 12 86/54 L 95 05/09/22 15:26 94 20 83/69 L 100 05/09/22 15:21 93 24 87/67 L 100 05/09/22 15:00 94 20 86/52 L 100 05/09/22 14:30 93 14 102/83 H 97 05/09/22 14:00 90 14 79/55 L 97 05/09/22 13:30 90 16 86/66 L 96 05/09/22 13:27 66 15 87/62 L 95 05/09/22 12:39 86 13 54/45 L 91 L 05/09/22 11:37 37.9 C 100 20 60/42 L 98 - Physical Exam General Appearance: positive: No acute distress, Lethargic (Very pale, appears fatigued, is able to carry on a conversation with short sentences), Other (Very pale and dry skin) Eyes Bilateral: positive: Other (Right eye has rightward deviation constantly) ENT: positive: Dry mucous membranes Neck: positive: No JVD Respiratory: positive: No respiratory distress, Breath sounds nml Cardiovascular: positive: Regular rate & rhythm, No murmur Abdomen: positive: Non-tender, Nml bowel sounds, No distention, Other (No discomfort around her suprapubic catheter) Rectal: positive: Other (Per RN, she has sacral wound) Skin: positive: Warm, Dry, Pallor, Other (Positive tenting) Extremities: positive: No pedal edema, Other (Tender lower extremities to the touch) Neurologic/Psychiatric: positive: Disoriented to time, Other (No spontaneous movements from the shoulders down, all 4 extremities are contracted.) Sepsis Event Note (H) - Evaluation Current Stage of Sepsis: Septic shock Possible source of Sepsis: positive: Implantable device, Genitourinary - Sepsis Criteria Sepsis Criteria: Recorded Heart Rate greater than 90 bpm, WBC count greater than 12,000 or less than 4000, SOFT WORK WRAPPER EXAMINER: altered consciousness (unrelated to primary neuro pathology), SBP less than 90 mmHg Conclusion/Plan - Problem List (1) Septic shock Conclusion/Plan: Admit to the ICU. Critical condition. Continue with IV fluids and IV pressors, to reach MAP of 65. Treat the underlying infection (2) Complicated UTI (urinary tract infection) Conclusion/Plan: This is related to her indwelling suprapubic catheter plus the recent urinary tract manipulation of lithotripsy. Continue with empiric IV meropenem that was started in the ED. Blood cultures have been sent off as well as urine cultures. Await these results totailor antibx. Urology had been contacted by the ED and they did not recommend any other procedures, like changing the suprapubic catheter out (3) BRYN (acute kidney injury) Conclusion/Plan: Likely related to volume depletion noted on exam, but also could be ATN from hypotension. Avoid nephrotoxins. Continue with aggressive volume replacement. Follow BMP daily Heparin SQ twice daily will be ordered for DVT prophylaxis (4) Abnormal EKG Conclusion/Plan: Her EKG shows new QT prolongation and new deep anterior T wave inversions. She may have had demand ischemia from the hypotension or have significant electrolyte abnormality. The calcium and potassium are normal. Will cycle troponins and if abnormal will start empiric aspirin and statin, no beta-rasta with her hypotension. Also check magnesium (5) Cerebral palsy Conclusion/Plan: As per Hx As per history. Continue with her usual home medication and usual management, foot braces. (6) Neurogenic bladder Conclusion/Plan: She has a chronic indwelling Epps and gets it changed intermittently. We will order standard Epps catheter care (7) Depression Conclusion/Plan: Continue with her usual meds and management, when reconciled. (8) Hx HTN (hypertension) Conclusion/Plan: We will be holding her usual BP meds and management during hypotension (9) Anemia Conclusion/Plan: She appears to have anemia of chronic disease since the EMR shows she always runs hemoglobin is around 10. We will be following her CBC daily. If there is a drop in Hgb, it could be from hemodilution. but would order PRBC transfuision if Hgb <7. (10) Neuropathy Conclusion/Plan: In the past, she reported that she does not want the SCDs and does not want her leg bandages and foot braces and sneakers removed, because of neuropathy pain when they are handled. - Lab Results Fish Bones: 05/09/22 12:10 05/09/22 12:10 - Diagnostic Imaging Results Diagnostic Imaging Results: positive: Final report reviewed - EKG Results EKG Interpreted Independently: Yes EKG Findings: Sinus rhythm, low voltage in limb leads, deep T wave inversions in anterior leads, QT prolonged. Since last EKG, the T wave changes and QT prolongation are new. - Other Other Results/Comments: Attestation: Patient is expected to be discharged or transferred to another facility within 96 hours: Yes.
[2022-05-09] MEDS: MEROPENEM 1 GM in SODIUM CHLORIDE 0.9% MINIBAG 100 ML IV SCH (19:31)
[2022-05-09] MEDS ORDERED: MAGNESIUM SULFATE 1 GM in SODIUM CHLORIDE 0.9% 50 ML IV ONE (19:53)
[2022-05-09] MEDS ORDERED: MEROPENEM 1 GM in SODIUM CHLORIDE 0.9% MINIBAG 100 ML IV SCH (20:00)
[2022-05-09] MEDS: LACTATED RINGERS 1,000 ML IV SCH (20:21)
[2022-05-09] MEDS ORDERED: SODIUM CHLORIDE 0.9% 500 ML IV PRN (20:28)
[2022-05-09] MEDS: ethyl alcohoL 62% SWAB AMPULE NAS SCH (21:01)
[2022-05-09] MEDS: HEPARIN 5,000 UNIT/ML VIAL SUBQ SCH (21:05)
[2022-05-09] MEDS ORDERED: SODIUM CHLORIDE 0.9% 50 ML IV ONE (21:13)
[2022-05-09] MEDS: SODIUM CHLORIDE FLUSH 0.9% 10 ML SYRINGE IVP PRN ×3 (21:30→23:08)
[2022-05-09] MEDS ORDERED: MAGNESIUM SULFATE 1 GM/2 ML VIAL ONE (21:35)
[2022-05-09] MEDS: ONDANSETRON 4 MG/2 ML VIAL IVP PRN (23:08)
[2022-05-09] MEDS: ACETAMINOPHEN 325 MG TABLET PO PRN (23:08)
[2022-05-10] MEDS: NOREPINEPHRINE/D5W 8 MG/250 ML BAG IV STA ×4 (01:38→23:36)
[2022-05-10] MEDS: MEROPENEM 1 GM in SODIUM CHLORIDE 0.9% MINIBAG 100 ML IV SCH ×3 (01:43→18:10)
[2022-05-10] MEDS: SODIUM CHLORIDE FLUSH 0.9% 10 ML SYRINGE IVP PRN ×4 (04:33→19:05)
[2022-05-10] MEDS: SODIUM CHLORIDE FLUSH 0.9% 10 ML SYRINGE IVP SCH ×3 (04:33→18:46)
[2022-05-10 04:49] LABS: VBG PH 7.441 (7.31-7.41)
[2022-05-10 04:50] LABS: BASOPHILS % (AUTO) 0.4 %; CALCIUM, IONIZED 1.13 mmol/L (1.15-1.33); HCT - HEMATOCRIT 30.7 % (37.0-47.0); HGB - HEMOGLOBIN 10.1 g/dL (12.0-16.0); LYMPHOCYTES % (AUTO) 3.8 %; MEAN CORPUSCULAR HEMOGLOBIN 28.7 pg (27.0-31.0); MEAN CORPUSCULAR HGB CONC 32.9 g/dL (32.0-36.0); MEAN CORPUSCULAR VOLUME 87.2 fL (81.0-99.0); MEAN PLATELET VOLUME 10.4 fL (7.9-10.8); MONOCYTES % (AUTO) 6.5 %; NEUTROPHILS % (AUTO) 88.1 %; PLT - PLATELET COUNT 198 10^3/uL (130-450); RED BLOOD COUNT 3.52 10^6/uL (4.20-5.40); RED CELL DISTRIBUTION WIDTH 19.9 % (12.0-15.0); WHITE BLOOD COUNT 30.3 x10^3/uL (4.8-10.8)
[2022-05-10 04:52] LABS: ABNORMAL LYMPHS % (MANUAL) 0 %
[2022-05-10 04:59] LABS: CALCIUM 8.1 mg/dL (8.5-10.3); CREATININE 0.9 mg/dL (0.4-1.0); MAGNESIUM 1.8 mg/dL (1.7-2.8); PHOSPHORUS 1.9 mg/dL (2.5-4.6); POTASSIUM 3.7 mmol/L (3.5-5.0)
[2022-05-10 05:08] LABS: BAND NEUTROPHILS % (MANUAL) 3 %; DIFFERENTIAL COMMENT MANUAL DIFFERENTIAL; LYMPHOCYTES # (MANUAL) 3.3 10^3/uL (1.5-3.5); LYMPHOCYTES % (MANUAL) 11 %; MONOCYTES # (MANUAL) 1.8 10^3/uL (0.0-1.0); NEUTROPHILS # (MANUAL) 25.1 10^3/uL (1.5-6.6); PLATELET ESTIMATE, MANUAL NORMAL (130-450,000) (NORMAL)
[2022-05-10] MEDS: ACETAMINOPHEN 325 MG TABLET PO PRN (05:43)
[2022-05-10] MEDS ORDERED: MAGNESIUM SULFATE 2 GRAM 2 GM/50 ML BAG IV ONE (06:00)
[2022-05-10] MEDS: LACTATED RINGERS 1,000 ML IV SCH ×2 (06:24→16:21)
[2022-05-10] MEDS: NEUTRA-PHOS 250 MG TABLET PO SCH ×2 (06:25→09:41)
[2022-05-10] MEDS ORDERED: POTASSIUM CHLORIDE 20 MEQ TABLET PO ONE ×2 (08:01→16:14)
[2022-05-10] MEDS: SODIUM CHLORIDE 0.9% 1,000 ML IV SCH (08:42)
[2022-05-10] MEDS: HEPARIN 5,000 UNIT/ML VIAL SUBQ SCH ×2 (08:56→20:23)
[2022-05-10] MEDS: ZINC OXIDE 20% OINT 30 GM TUBE TOP PRN ×2 (10:15→18:43)
[2022-05-10] MEDS: ethyl alcohoL 62% SWAB AMPULE NAS SCH ×2 (10:17→20:24)
[2022-05-10] MEDS: ACETAMINOPHEN 1,000 MG/100 ML 1,000 MG/100 ML BAG IV PRN ×2 (12:30→22:16)
--- NOTE | 2022-05-10 15:45 | PROVIDER PROGRESS NOTE ---
Subjective - Subjective Pt reports feeling: Improved Subjective: She was too somnolent to swallow anything at breakfast but awoke when the father arrived at midday and could swallow pureed food. Objective - Vital Signs/Intake & Output Reviewed Vital Signs: Yes Vital Signs: Vital Signs Temp Pulse Resp BP Pulse Ox O2 Flow Rate 05/10/22 15:15 94/67 05/10/22 15:00 77 21 100/76 100 2 05/10/22 14:11 39.5 C H 05/10/22 14:00 79 21 87/71 L 100 2 05/10/22 13:45 102/79 05/10/22 13:30 81/67 L 05/10/22 13:15 100/60 05/10/22 13:00 83 26 H 103/80 93 2 05/10/22 12:45 82 20 97/76 100 05/10/22 12:00 39.5 C H 86 26 H 100/76 94 2 Intake & Output: Intake & Output 05/07/22 05/08/22 05/09/22 05/10/22 23:59 23:59 23:59 23:59 Intake Total 3355.188 3543.269 Output Total 240 520 Balance 3115.188 3023.269 - Objective General Appearance: positive: No acute distress, Other (Somnolent, edentulous, has lipsmacking, marked pallor, facial deformity (chronic right eye deviation)) Eyes Bilateral: positive: Other (facial deformity (chronic right eye deviation)) ENT: positive: Dry mucous membranes, Other (edentulous) Neck: positive: Nml inspection, No JVD Respiratory: positive: No respiratory distress, Breath sounds nml Cardiovascular: positive: Regular rate & rhythm, No murmur Abdomen: positive: Non-tender, Nml bowel sounds, No distention, Other (Suprapubic tube in place, no tenderness around) Skin: positive: Dry, Pallor Extremities: positive: No pedal edema, Other (Tenderness of shins, R heel bandaged) Neurologic/Psychiatric: positive: Other (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, Has contractures of all 4 extremities) - Lab Results Fish Bones: 05/10/22 04:34 05/10/22 04:34 Other Labs: Lab Results x24hrs 05/10/22 05/10/22 05/10/22 Range/Units 05:00 04:34 04:34 WBC (4.8-10.8) x10^3/uL RBC (4.20-5.40) 10^6/uL Hgb (12.0-16.0) g/dL Hct (37.0-47.0) % MCV (81.0-99.0) fL MCH (27.0-31.0) pg MCHC (32.0-36.0) g/dL RDW (12.0-15.0) % Plt Count (130-450) 10^3/uL MPV (7.9-10.8) fL Neut # (Auto) Lymph # (Auto) [place] # (Auto) Eos # (Auto) Baso # (Auto) Absolute Nucleated RBC Total Counted Band Neuts % (Manual) (0 - 10) % Abnorm Lymph % (Manual) % Nucleated RBC % Neutrophils # (Manual) (1.5-6.6) 10^3/uL Lymphocytes # (Manual) (1.5-3.5) 10^3/uL Monocytes # (Manual) (0.0-1.0) 10^3/uL Eosinophils # (Manual) (0-0.7) 10^3/uL Basophils # (Manual) (0-0.1) 10^3/uL Differential Comment Platelet Estimate (NORMAL) RBC Morph Micro Appear (NORMAL) VBG pH 7.441 H (7.31-7.41) Ionized Calcium 1.13 L (1.15-1.33) mmol/L Sodium (135-145) mmol/L Potassium (3.5-5.0) mmol/L Chloride (101-111) mmol/L Carbon Dioxide (21-32) mmol/L Anion Gap (6-13) BUN (6-20) mg/dL Creatinine (0.4-1.0) mg/dL Estimated GFR (MDRD) (>89) Glucose (70-100) mg/dL Calcium (8.5-10.3) mg/dL Phosphorus (2.5-4.6) mg/dL Magnesium 2.4 (1.7-2.8) mg/dL Troponin I High Sens 214.6 H* (2.3-14.8) ng/L Nasal Adenovirus (PCR) Nasal B. parapertussis DNA (PCR) Nasal Coronavir 229E PCR Nasal Coronavir HKU1 PCR Nasal Coronavir NL63 PCR Nasal Coronavir OC43 PCR Nasal Enterovir/Rhinovir PCR Nasal Influenza B PCR Nasal Influenza A PCR Nasal Parainfluen 1 PCR Nasal Parainfluen 2 PCR Nasal Parainfluen 3 PCR Nasal Parainfluen 4 PCR Nasal RSV (PCR) Nasal Screen MRSA (PCR) (NEGATIVE) Nasal B.pertussis DNA PCR Nasal C.pneumoniae (PCR) Pool Human Metapneumo PCR Nasal M.pneumoniae (PCR) Nasal SARS-CoV-2 (PCR) 05/10/22 05/10/22 05/09/22 Range/Units 04:34 04:34 17:50 WBC 30.3 H (4.8-10.8) x10^3/uL RBC 3.52 L (4.20-5.40) 10^6/uL Hgb 10.1 L (12.0-16.0) g/dL Hct 30.7 L (37.0-47.0) % MCV 87.2 (81.0-99.0) fL MCH 28.7 (27.0-31.0) pg MCHC 32.9 (32.0-36.0) g/dL RDW 19.9 H (12.0-15.0) % Plt Count 198 (130-450) 10^3/uL MPV 10.4 (7.9-10.8) fL Neut # (Auto) Not Reportable Lymph # (Auto) Not Reportable [place] # (Auto) Not Reportable Eos # (Auto) Not Reportable Baso # (Auto) Not Reportable Absolute Nucleated RBC Not Reportable Total Counted 100 Band Neuts % (Manual) 3 (0 - 10) % Abnorm Lymph % (Manual) 0 % Nucleated RBC % Not Reportable Neutrophils # (Manual) 25.1 H (1.5-6.6) 10^3/uL Lymphocytes # (Manual) 3.3 (1.5-3.5) 10^3/uL Monocytes # (Manual) 1.8 H (0.0-1.0) 10^3/uL Eosinophils # (Manual) 0.0 (0-0.7) 10^3/uL Basophils # (Manual) 0.0 (0-0.1) 10^3/uL Differential Comment MANUAL DIFFERENTIAL Platelet Estimate NORMAL (130-450,000) (NORMAL) RBC Morph Micro Appear 1+ OVALOCYTES (NORMAL) VBG pH (7.31-7.41) Ionized Calcium (1.15-1.33) mmol/L Sodium 134 L (135-145) mmol/L Potassium 3.7 (3.5-5.0) mmol/L Chloride 103 (101-111) mmol/L Carbon Dioxide 22 (21-32) mmol/L Anion Gap 9.0 (6-13) BUN 33 H (6-20) mg/dL Creatinine 0.9 (0.4-1.0) mg/dL Estimated GFR (MDRD) 65 L (>89) Glucose 118 H (70-100) mg/dL Calcium 8.1 L (8.5-10.3) mg/dL Phosphorus 1.9 L (2.5-4.6) mg/dL Magnesium 1.8 1.5 L (1.7-2.8) mg/dL Troponin I High Sens (2.3-14.8) ng/L Nasal Adenovirus (PCR) Nasal B. parapertussis DNA (PCR) Nasal Coronavir 229E PCR Nasal Coronavir HKU1 PCR Nasal Coronavir NL63 PCR Nasal Coronavir OC43 PCR Nasal Enterovir/Rhinovir PCR Nasal Influenza B PCR Nasal Influenza A PCR Nasal Parainfluen 1 PCR Nasal Parainfluen 2 PCR Nasal Parainfluen 3 PCR Nasal Parainfluen 4 PCR Nasal RSV (PCR) Nasal Screen MRSA (PCR) (NEGATIVE) Nasal B.pertussis DNA PCR Nasal C.pneumoniae (PCR) Pool Human Metapneumo PCR Nasal M.pneumoniae (PCR) Nasal SARS-CoV-2 (PCR) 05/09/22 05/09/22 05/09/22 Range/Units 17:47 17:44 15:05 WBC (4.8-10.8) x10^3/uL RBC (4.20-5.40) 10^6/uL Hgb (12.0-16.0) g/dL Hct (37.0-47.0) % MCV (81.0-99.0) fL MCH (27.0-31.0) pg MCHC (32.0-36.0) g/dL RDW (12.0-15.0) % Plt Count (130-450) 10^3/uL MPV (7.9-10.8) fL Neut # (Auto) Lymph # (Auto) [place] # (Auto) Eos # (Auto) Baso # (Auto) Absolute Nucleated RBC Total Counted Band Neuts % (Manual) (0 - 10) % Abnorm Lymph % (Manual) % Nucleated RBC % Neutrophils # (Manual) (1.5-6.6) 10^3/uL Lymphocytes # (Manual) (1.5-3.5) 10^3/uL Monocytes # (Manual) (0.0-1.0) 10^3/uL Eosinophils # (Manual) (0-0.7) 10^3/uL Basophils # (Manual) (0-0.1) 10^3/uL Differential Comment Platelet Estimate (NORMAL) RBC Morph Micro Appear (NORMAL) VBG pH (7.31-7.41) Ionized Calcium (1.15-1.33) mmol/L Sodium (135-145) mmol/L Potassium (3.5-5.0) mmol/L Chloride (101-111) mmol/L Carbon Dioxide (21-32) mmol/L Anion Gap (6-13) BUN (6-20) mg/dL Creatinine (0.4-1.0) mg/dL Estimated GFR (MDRD) (>89) Glucose (70-100) mg/dL Calcium (8.5-10.3) mg/dL Phosphorus (2.5-4.6) mg/dL Magnesium (1.7-2.8) mg/dL Troponin I High Sens 295.7 H* (2.3-14.8) ng/L Nasal Adenovirus (PCR) NOT DETECTED Nasal B. parapertussis DNA (PCR) NOT DETECTED Nasal Coronavir 229E PCR NOT DETECTED Nasal Coronavir HKU1 PCR NOT DETECTED Nasal Coronavir NL63 PCR NOT DETECTED Nasal Coronavir OC43 PCR NOT DETECTED Nasal Enterovir/Rhinovir PCR NOT DETECTED Nasal Influenza B PCR NOT DETECTED Nasal Influenza A PCR NOT DETECTED Nasal Parainfluen 1 PCR NOT DETECTED Nasal Parainfluen 2 PCR NOT DETECTED Nasal Parainfluen 3 PCR NOT DETECTED Nasal Parainfluen 4 PCR NOT DETECTED Nasal RSV (PCR) NOT DETECTED Nasal Screen MRSA (PCR) POSITIVE A* (NEGATIVE) Nasal B.pertussis DNA PCR NOT DETECTED Nasal C.pneumoniae (PCR) NOT DETECTED Pool Human Metapneumo PCR NOT DETECTED Nasal M.pneumoniae (PCR) NOT DETECTED Nasal SARS-CoV-2 (PCR) NOT DETECTED Sepsis Event Note (H) - Evaluation Current Stage of Sepsis: Septic shock Possible source of Sepsis: positive: Implantable device, Genitourinary - Sepsis Criteria Sepsis Criteria: Recorded Heart Rate greater than 90 bpm, WBC count greater than 12,000 or less than 4000, CLOCKMAKER APPRENTICE: altered consciousness (unrelated to primary neuro pathology), SBP less than 90 mmHg Assessment/Plan - Problem List (1) Septic shock Impression: She is admitted to the ICU. She still needs pressores and is in Critical condition. Continue with IV fluids and IV pressors, to reach MAP of 65. Treat the underlying infection (2) Complicated UTI (urinary tract infection) Conclusion/Plan: This is related to her indwelling suprapubic catheter plus the recent urinary tract manipulation of lithotripsy. Urology had been contacted by the ED and they did not recommend any other procedures, like changing the suprapubic catheter out. Blood cultures are negative to date. The urine culture is growing 1 organism, it has not been identified yet Continue with empiric IV meropenem that was started in the ED. Blood cultures and urine culture results are awaited to tailor antibx. (3) BRYN (acute kidney injury) Conclusion/Plan: Likely related to volume depletion noted on exam, but also could be ATN from hypotension. Avoid nephrotoxins. Continue with aggressive volume replacement. Follow BMP daily Heparin SQ twice daily will be ordered for DVT prophylaxis (4) Abnormal EKG Conclusion/Plan: Her EKG showed new deep anterior T wave inversions. She may have had demand ischemia from the hypotension or have significant electrolyte abnormality. The calcium, potassium and Mg were normal. Will cycle troponins and if abnormal will start empiric aspirin and statin, no beta-rasta with her hypotension. (5) Elevated troponins Conclusion/Plan: Her new deep T wave inversions anteriorly yesterday on EKG, have improved and her troponin peaked at 295. This is very likely consistent with a demand ischemia from her septic shock. An Echo has been ordered to evaluate LV function (today is Thursday and we have no marine technician here until Thursday). Because of her shock, no beta-blockers or Nitrates can be started. She has been started on 1 aspirin daily and statin (6) Cerebral palsy Conclusion/Plan: As per Hx As per history. Continue with her usual home medication and usual management, foot braces. (7) Neurogenic bladder Conclusion/Plan: She has a chronic indwelling Epps and gets it changed intermittently. We will order standard Epps catheter care (8) Depression Conclusion/Plan: Continue with her usual meds and management, when reconciled. (9) Hx HTN (hypertension) Conclusion/Plan: We will be holding her usual BP meds and management during hypotension (10) Anemia Conclusion/Plan: She appears to have anemia of chronic disease since the EMR shows she always runs hemoglobin is around 10. We will be following her CBC daily. If there is a drop in Hgb, it could be from hemodilution. but would order PRBC transfuision if Hgb <7. (11) Neuropathy Conclusion/Plan: In the past, she reported that she does not want the SCDs and does not want her leg bandages and foot braces and sneakers removed, because of neuropathy pain when they are handled. EKG done today (I interpreted): Normal sinus rhythm, rate 91, nonspecific IVCD, poor R wave progression across the precordium. Since EKG from 05/09/2022, the deep T wave inversions anteriorly have improved.
[2022-05-10] MEDS ORDERED: NEUTRA-PHOS 250 MG TABLET PO SCH (17:00)
[2022-05-10] MEDS: ONDANSETRON 4 MG/2 ML VIAL IVP PRN (18:59)
[2022-05-10] MEDS ORDERED: POTASSIUM CHLOR 20 MEQ/100 ML 20 MEQ/100 ML BAG IV ONE (23:12)
[2022-05-11] MEDS: SODIUM CHLORIDE FLUSH 0.9% 10 ML SYRINGE IVP SCH ×4 (01:39→20:08)
[2022-05-11] MEDS: SODIUM CHLORIDE FLUSH 0.9% 10 ML SYRINGE IVP PRN ×7 (01:39→20:08)
[2022-05-11] MEDS: LACTATED RINGERS 1,000 ML IV SCH (02:15)
[2022-05-11] MEDS: MEROPENEM 1 GM in SODIUM CHLORIDE 0.9% MINIBAG 100 ML IV SCH ×3 (04:43→17:24)
[2022-05-11 05:03] LABS: CALCIUM, IONIZED 1.09 mmol/L (1.15-1.33); VBG PH 7.425 (7.31-7.41)
[2022-05-11 05:06] LABS: BASOPHILS # (AUTO) 0.1 10^3/uL (0.0-0.1); BASOPHILS % (AUTO) 0.3 %; EOSINOPHILS % (AUTO) 0.1 %; HCT - HEMATOCRIT 28.6 % (37.0-47.0); HGB - HEMOGLOBIN 9.4 g/dL (12.0-16.0); LYMPHOCYTES # (AUTO) 1.6 10^3/uL (1.5-3.5); LYMPHOCYTES % (AUTO) 8.6 %; MEAN CORPUSCULAR HEMOGLOBIN 28.2 pg (27.0-31.0); MEAN CORPUSCULAR HGB CONC 32.9 g/dL (32.0-36.0); MEAN CORPUSCULAR VOLUME 85.9 fL (81.0-99.0); MEAN PLATELET VOLUME 10.5 fL (7.9-10.8); MONOCYTES # (AUTO) 1.5 10^3/uL (0.0-1.0); MONOCYTES % (AUTO) 7.9 %; NEUTROPHILS # (AUTO) 15.4 10^3/uL (1.5-6.6); NEUTROPHILS % (AUTO) 82.5 %; PLT - PLATELET COUNT 169 10^3/uL (130-450); RED BLOOD COUNT 3.33 10^6/uL (4.20-5.40); RED CELL DISTRIBUTION WIDTH 19.8 % (12.0-15.0); WHITE BLOOD COUNT 18.6 x10^3/uL (4.8-10.8)
[2022-05-11] MEDS: ZINC OXIDE 20% OINT 30 GM TUBE TOP PRN ×3 (05:08→20:18)
[2022-05-11 05:14] LABS: CALCIUM 7.3 mg/dL (8.5-10.3); CREATININE 0.7 mg/dL (0.4-1.0); POTASSIUM 3.9 mmol/L (3.5-5.0)
[2022-05-11] MEDS: SODIUM CHLORIDE 0.9% 1,000 ML IV SCH ×3 (05:14→18:41)
[2022-05-11 05:24] LABS: MAGNESIUM 1.9 mg/dL (1.7-2.8); PHOSPHORUS 2.5 mg/dL (2.5-4.6)
[2022-05-11] MEDS ORDERED: POTASSIUM CHLOR 20 MEQ/100 ML 20 MEQ/100 ML BAG IV ONE (06:00)
[2022-05-11] MEDS: ONDANSETRON 4 MG/2 ML VIAL IVP PRN (06:59)
[2022-05-11] MEDS ORDERED: CALCIUM GLUC 1,000MG/50ML-NACL 1,000 MG/50 ML BAG IV ONE (07:00)
[2022-05-11] MEDS ORDERED: MAGNESIUM SULFATE 2 GRAM 2 GM/50 ML BAG IV ONE (08:00)
[2022-05-11] MEDS: NEUTRA-PHOS 250 MG TABLET PO SCH ×3 (08:38→14:14)
[2022-05-11] MEDS ORDERED: SODIUM CHLORIDE 0.9% 1,000 ML IV SCH (08:40)
--- NOTE | 2022-05-11 08:43 | PROVIDER PROGRESS NOTE ---
Subjective - Subjective Subjective: Nauseated Objective - Vital Signs/Intake & Output Reviewed Vital Signs: Yes Vital Signs: Vital Signs Temp Pulse Resp BP Pulse Ox 05/11/22 08:00 37.6 C 82 17 108/70 96 05/11/22 06:57 83 23 111/91 H 99 05/11/22 06:00 37.4 C 80 21 106/80 99 05/11/22 05:00 81 20 103/90 H 99 Intake & Output: Intake & Output 05/08/22 05/09/22 05/10/22 05/11/22 23:59 23:59 23:59 23:59 Intake Total 3355.188 5561.874 2345.313 Output Total 240 1070 525 Balance 3115.188 4491.874 1820.313 - Objective General Appearance: positive: Alert, Mild distress Eyes Bilateral: positive: Normal inspection, Other (R eyes deviated (chronic)) ENT: positive: No signs of dehydration, Other (edentulous) Neck: positive: Nml inspection Respiratory: positive: No respiratory distress, Breath sounds nml Cardiovascular: positive: Regular rate & rhythm, No murmur Abdomen: positive: No distention, Other (Has suprapubic cath) Skin: positive: Warm, Dry, Pallor Extremities: positive: No pedal edema Neurologic/Psychiatric: positive: Other (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) - Lab Results Fish Bones: 05/11/22 04:44 05/11/22 12:09 Other Labs: Lab Results x24hrs 05/11/22 05/11/22 05/11/22 Range/Units 04:44 04:44 04:44 WBC (4.8-10.8) x10^3/uL RBC (4.20-5.40) 10^6/uL Hgb (12.0-16.0) g/dL Hct (37.0-47.0) % MCV (81.0-99.0) fL MCH (27.0-31.0) pg MCHC (32.0-36.0) g/dL RDW (12.0-15.0) % Plt Count (130-450) 10^3/uL MPV (7.9-10.8) fL Neut # (Auto) (1.5-6.6) 10^3/uL Lymph # (Auto) (1.5-3.5) 10^3/uL [place] # (Auto) (0.0-1.0) 10^3/uL Eos # (Auto) (0.0-0.7) 10^3/uL Baso # (Auto) (0.0-0.1) 10^3/uL Absolute Nucleated RBC x10^3/uL Nucleated RBC % /100WBC VBG pH 7.425 H (7.31-7.41) Ionized Calcium 1.09 L (1.15-1.33) mmol/L Sodium 129 L (135-145) mmol/L Potassium 3.9 (3.5-5.0) mmol/L Chloride 102 (101-111) mmol/L Carbon Dioxide 22 (21-32) mmol/L Anion Gap 5.0 L (6-13) BUN 23 H (6-20) mg/dL Creatinine 0.7 (0.4-1.0) mg/dL Estimated GFR (MDRD) 88 L (>89) Glucose 98 (70-100) mg/dL Calcium 7.3 L (8.5-10.3) mg/dL Phosphorus 2.5 (2.5-4.6) mg/dL Magnesium 1.9 (1.7-2.8) mg/dL Troponin I High Sens (2.3-14.8) ng/L 05/11/22 05/11/22 05/10/22 Range/Units 04:44 01:37 20:49 WBC 18.6 H (4.8-10.8) x10^3/uL RBC 3.33 L (4.20-5.40) 10^6/uL Hgb 9.4 L (12.0-16.0) g/dL Hct 28.6 L (37.0-47.0) % MCV 85.9 (81.0-99.0) fL MCH 28.2 (27.0-31.0) pg MCHC 32.9 (32.0-36.0) g/dL RDW 19.8 H (12.0-15.0) % Plt Count 169 (130-450) 10^3/uL MPV 10.5 (7.9-10.8) fL Neut # (Auto) 15.4 H (1.5-6.6) 10^3/uL Lymph # (Auto) 1.6 (1.5-3.5) 10^3/uL [place] # (Auto) 1.5 H (0.0-1.0) 10^3/uL Eos # (Auto) 0.0 (0.0-0.7) 10^3/uL Baso # (Auto) 0.1 (0.0-0.1) 10^3/uL Absolute Nucleated RBC 0.00 x10^3/uL Nucleated RBC % 0.0 /100WBC VBG pH (7.31-7.41) Ionized Calcium (1.15-1.33) mmol/L Sodium (135-145) mmol/L Potassium 4.2 3.7 (3.5-5.0) mmol/L Chloride (101-111) mmol/L Carbon Dioxide (21-32) mmol/L Anion Gap (6-13) BUN (6-20) mg/dL Creatinine (0.4-1.0) mg/dL Estimated GFR (MDRD) (>89) Glucose (70-100) mg/dL Calcium (8.5-10.3) mg/dL Phosphorus (2.5-4.6) mg/dL Magnesium (1.7-2.8) mg/dL Troponin I High Sens (2.3-14.8) ng/L 05/10/22 05/10/22 Range/Units 05:00 04:34 WBC (4.8-10.8) x10^3/uL RBC (4.20-5.40) 10^6/uL Hgb (12.0-16.0) g/dL Hct (37.0-47.0) % MCV (81.0-99.0) fL MCH (27.0-31.0) pg MCHC (32.0-36.0) g/dL RDW (12.0-15.0) % Plt Count (130-450) 10^3/uL MPV (7.9-10.8) fL Neut # (Auto) (1.5-6.6) 10^3/uL Lymph # (Auto) (1.5-3.5) 10^3/uL [place] # (Auto) (0.0-1.0) 10^3/uL Eos # (Auto) (0.0-0.7) 10^3/uL Baso # (Auto) (0.0-0.1) 10^3/uL Absolute Nucleated RBC x10^3/uL Nucleated RBC % /100WBC VBG pH (7.31-7.41) Ionized Calcium (1.15-1.33) mmol/L Sodium (135-145) mmol/L Potassium (3.5-5.0) mmol/L Chloride (101-111) mmol/L Carbon Dioxide (21-32) mmol/L Anion Gap (6-13) BUN (6-20) mg/dL Creatinine (0.4-1.0) mg/dL Estimated GFR (MDRD) (>89) Glucose (70-100) mg/dL Calcium (8.5-10.3) mg/dL Phosphorus (2.5-4.6) mg/dL Magnesium 2.4 (1.7-2.8) mg/dL Troponin I High Sens 214.6 H* (2.3-14.8) ng/L Sepsis Event Note (H) - Evaluation Current Stage of Sepsis: Septic shock Possible source of Sepsis: positive: Implantable device, Genitourinary - Sepsis Criteria Sepsis Criteria: Recorded Heart Rate greater than 90 bpm, WBC count greater than 12,000 or less than 4000, CUSTOMER SOLUTIONS SPECIALIST: altered consciousness (unrelated to primary neuro pathology), SBP less than 90 mmHg Assessment/Plan - Problem List (1) Septic shock Impression: She still remains on low doses of Levophed. Her white blood count is still elevated and only very slowly decreasing. Continue with blood pressure support with crystalloids and Levophed weaning to off when possible. Continue with IV antibiotics for her infection (2) Pseudomonas urinary tract infection Impression: The urine culture bacteria has been identified as Pseudomonas and the sensitivities are back and it is sensitive to the Penams. Continue with IV meropenem. Await to see if blood cultures do turn positive, which will degtermine duration of antibx. (3) Hyponatremia Impression: She has been on LR plus very low NS rate. Will stop the LR and increase her NS to 125cc/hr Follow BMP daily (4) Complicated UTI (urinary tract infection) Conclusion/Plan: This is related to her indwelling suprapubic catheter plus the recent urinary tract manipulation of lithotripsy. Urology had been contacted by the ED and they did not recommend any other procedures, like changing the suprapubic catheter out. Blood cultures are negative to date. The urine culture is growing Pseudomonas aruginosa Continue with IV meropenem that was started in the ED. Blood cultures and urine culture final results are awaited to tailor antibx. (5) BRYN (acute kidney injury) Conclusion/Plan: Likely related to volume depletion noted on exam, but also could be ATN from hypotension. Avoid nephrotoxins. Continue with aggressive volume replacement. Follow BMP daily Heparin SQ twice daily will be ordered for DVT prophylaxis (6) Abnormal EKG Conclusion/Plan: Her EKG showed new deep anterior T wave inversions. She may have had demand ischemia from the hypotension or have significant electrolyte abnormality. The calcium, potassium and Mg were normal. Will cycle troponins and if abnormal will start empiric aspirin and statin, no beta-rasta with her hypotension. (7) Elevated troponins Conclusion/Plan: Her new deep T wave inversions anteriorly yesterday on EKG, have improved and her troponin peaked at 295. This is very likely consistent with a demand ischemia from her septic shock. An Echo has been ordered to evaluate LV function (today is Thursday and we have no industrial technology education teacher here until Thursday). Because of her shock, no beta-blockers or Nitrates can be started. She has been started on 1 aspirin daily and statin (8) Cerebral palsy Conclusion/Plan: As per Hx As per history. Continue with her usual home medication and usual management, foot braces. (9) Neurogenic bladder Conclusion/Plan: She has a chronic indwelling Epps and gets it changed intermittently. We will order standard Epps catheter care (10) Depression Conclusion/Plan: Continue with her usual meds and management, (11) Hx HTN (hypertension) Conclusion/Plan: We will be holding her usual BP meds and management during hypotension (12) Anemia Conclusion/Plan: She appears to have anemia of chronic disease since the EMR shows she always runs hemoglobin is around 10. We will be following her CBC daily. If there is a drop in Hgb, it could be from hemodilution. but would order PRBC transfuision if Hgb <7. (13) Neuropathy Conclusion/Plan: In the past, she reported that she does not want the SCDs and does not want her leg bandages and foot braces and sneakers removed, because of neuropathy pain when they are handled.
[2022-05-11] MEDS: HEPARIN 5,000 UNIT/ML VIAL SUBQ SCH ×2 (10:42→20:15)
[2022-05-11] MEDS: ethyl alcohoL 62% SWAB AMPULE NAS SCH ×2 (10:43→20:15)
[2022-05-11] MEDS: PROCHLORPERAZINE 10 MG/2 ML VIAL IVP PRN (11:55)
[2022-05-11] MEDS: NYSTATIN CREAM 15 GM TUBE TOP SCH ×2 (12:10→20:18)
[2022-05-11 12:28] LABS: VBG PH 7.417 (7.31-7.41)
[2022-05-11 12:29] LABS: CALCIUM, IONIZED 1.11 mmol/L (1.15-1.33)
[2022-05-11 12:35] LABS: MAGNESIUM 2.3 mg/dL (1.7-2.8); POTASSIUM 4.2 mmol/L (3.5-5.0)
[2022-05-11] MEDS ORDERED: SODIUM PHOSPHATE 15 MMOL in SODIUM CHLORIDE 0.9% 250 ML IV ONE (13:27)
[2022-05-11] MEDS ORDERED: NOREPINEPHRINE/D5W 8 MG/250 ML BAG IV STA (14:02)
[2022-05-11] MEDS: ACETAMINOPHEN 325 MG TABLET PO PRN (14:20)
[2022-05-11] MEDS: ACETAMINOPHEN 1,000 MG/100 ML 1,000 MG/100 ML BAG IV PRN ×2 (14:37→20:23)
[2022-05-12] MEDS: MEROPENEM 1 GM in SODIUM CHLORIDE 0.9% MINIBAG 100 ML IV SCH ×3 (02:50→17:22)
[2022-05-12] MEDS: SODIUM CHLORIDE 0.9% 1,000 ML IV SCH ×3 (02:54→21:40)
[2022-05-12] MEDS: SODIUM CHLORIDE FLUSH 0.9% 10 ML SYRINGE IVP PRN ×4 (04:57→21:39)
[2022-05-12 05:09] LABS: BASOPHILS # (AUTO) 0.1 10^3/uL (0.0-0.1); BASOPHILS % (AUTO) 0.3 %; EOSINOPHILS # (AUTO) 0.3 10^3/uL (0.0-0.7); EOSINOPHILS % (AUTO) 1.6 %; HCT - HEMATOCRIT 28.9 % (37.0-47.0); HGB - HEMOGLOBIN 9.7 g/dL (12.0-16.0); LYMPHOCYTES # (AUTO) 1.7 10^3/uL (1.5-3.5); LYMPHOCYTES % (AUTO) 10.4 %; MEAN CORPUSCULAR HGB CONC 33.6 g/dL (32.0-36.0); MEAN CORPUSCULAR VOLUME 86.3 fL (81.0-99.0); MEAN PLATELET VOLUME 11.1 fL (7.9-10.8); MONOCYTES # (AUTO) 1.2 10^3/uL (0.0-1.0); MONOCYTES % (AUTO) 7.6 %; NEUTROPHILS # (AUTO) 12.8 10^3/uL (1.5-6.6); NEUTROPHILS % (AUTO) 79.4 %; PLT - PLATELET COUNT 207 10^3/uL (130-450); RED BLOOD COUNT 3.35 10^6/uL (4.20-5.40); RED CELL DISTRIBUTION WIDTH 19.9 % (12.0-15.0); WHITE BLOOD COUNT 16.1 x10^3/uL (4.8-10.8)
[2022-05-12 05:10] LABS: CALCIUM, IONIZED 1.03 mmol/L (1.15-1.33); VBG PH 7.404 (7.31-7.41)
[2022-05-12 05:22] LABS: CALCIUM 7.1 mg/dL (8.5-10.3); CREATININE 0.5 mg/dL (0.4-1.0); MAGNESIUM 2.1 mg/dL (1.7-2.8); PHOSPHORUS 2.3 mg/dL (2.5-4.6)
[2022-05-12] MEDS ORDERED: CALCIUM GLUC 1,000MG/50ML-NACL 1,000 MG/50 ML BAG IV ONE ×2 (05:26→22:01)
[2022-05-12] MEDS: PROCHLORPERAZINE 10 MG/2 ML VIAL IVP PRN (05:56)
[2022-05-12] MEDS ORDERED: POTASSIUM PHOSPHATE 15 MMOL in SODIUM CHLORIDE 0.9% 250 ML IV ONE (08:00)
[2022-05-12] MEDS: HEPARIN 5,000 UNIT/ML VIAL SUBQ SCH ×2 (08:08→21:21)
[2022-05-12] MEDS: ethyl alcohoL 62% SWAB AMPULE NAS SCH ×2 (08:10→21:20)
[2022-05-12] MEDS: SODIUM CHLORIDE FLUSH 0.9% 10 ML SYRINGE IVP SCH ×2 (08:10→17:22)
[2022-05-12] MEDS: NYSTATIN CREAM 15 GM TUBE TOP SCH ×2 (08:11→21:22)
[2022-05-12 09:30] LABS: CALCIUM, IONIZED 1.06 mmol/L (1.15-1.33); VBG PH 7.42 (7.31-7.41)
[2022-05-12] MEDS ORDERED: CALCIUM CHLORIDE 1,000 MG in SODIUM CHLORIDE 0.9% 50 ML IV ONE (10:06)
[2022-05-12] MEDS ORDERED: NOREPINEPHRINE/D5W 8 MG/250 ML BAG IV STA (11:16)
[2022-05-12 12:49] LABS: IRON 34 ug/dL (28-170); TRANSFERRIN < 70 mg/dL (192-382)
--- NOTE | 2022-05-12 13:52 | PROVIDER PROGRESS NOTE ---
Subjective - Subjective Pt reports feeling: Improved (No further nausea, tolerated a pureed breakfast.), No change (Per RN, she is still on Levophed) Objective - Vital Signs/Intake & Output Reviewed Vital Signs: Yes Vital Signs: Vital Signs Temp Pulse Resp BP Pulse Ox O2 Flow Rate 05/12/22 12:00 36.8 C 90 23 129/102 H 100 05/12/22 11:00 83 16 132/106 H 100 05/12/22 10:00 88 24 124/99 H 98 Intake & Output: Intake & Output 05/09/22 05/10/22 05/11/22 05/12/22 23:59 23:59 23:59 23:59 Intake Total 3355.188 5561.874 5083.675 2754.292 Output Total 240 1070 1360 535 Balance 3115.188 4491.874 3723.675 2219.292 - Objective General Appearance: positive: No acute distress, Alert, Other (Not as sleepy) Eyes Bilateral: positive: Other (R eye deviated (chronic facial deformity)) ENT: positive: No signs of dehydration, Other (pale. Edentulous and not wearing her dentures.) Respiratory: positive: No respiratory distress, Breath sounds nml Cardiovascular: positive: Regular rate & rhythm, No murmur Abdomen: positive: Non-tender, Nml bowel sounds, No distention Skin: positive: Warm, Dry, Pallor Extremities: positive: No pedal edema, Other (shins aretender to touch) Neurologic/Psychiatric: positive: Other (paraplegic weakness from the chest down, all limbs have contractures.) - Lab Results Fish Bones: 05/12/22 04:57 05/12/22 04:57 Other Labs: Lab Results x24hrs 05/12/22 05/12/22 05/12/22 Range/Units 09:24 09:24 09:24 WBC (4.8-10.8) x10^3/uL RBC (4.20-5.40) 10^6/uL Hgb (12.0-16.0) g/dL Hct (37.0-47.0) % MCV (81.0-99.0) fL MCH (27.0-31.0) pg MCHC (32.0-36.0) g/dL RDW (12.0-15.0) % Plt Count (130-450) 10^3/uL MPV (7.9-10.8) fL Neut # (Auto) (1.5-6.6) 10^3/uL Lymph # (Auto) (1.5-3.5) 10^3/uL Gregg # (Auto) (0.0-1.0) 10^3/uL Eos # (Auto) (0.0-0.7) 10^3/uL Baso # (Auto) (0.0-0.1) 10^3/uL Absolute Nucleated RBC x10^3/uL Nucleated RBC % /100WBC VBG pH 7.420 H (7.31-7.41) Ionized Calcium 1.06 L (1.15-1.33) mmol/L Sodium (135-145) mmol/L Potassium (3.5-5.0) mmol/L Chloride (101-111) mmol/L Carbon Dioxide (21-32) mmol/L Anion Gap (6-13) BUN (6-20) mg/dL Creatinine (0.4-1.0) mg/dL Estimated GFR (MDRD) (>89) Glucose (70-100) mg/dL Calcium (8.5-10.3) mg/dL Phosphorus (2.5-4.6) mg/dL Magnesium (1.7-2.8) mg/dL Iron 34 (28-170) ug/dL Transferrin < 70 L (192-382) mg/dL TSH 1.18 (0.34-5.60) uIU/mL 05/12/22 05/12/22 05/12/22 Range/Units 04:57 04:57 04:57 WBC 16.1 H (4.8-10.8) x10^3/uL RBC 3.35 L (4.20-5.40) 10^6/uL Hgb 9.7 L (12.0-16.0) g/dL Hct 28.9 L (37.0-47.0) % MCV 86.3 (81.0-99.0) fL MCH 29.0 (27.0-31.0) pg MCHC 33.6 (32.0-36.0) g/dL RDW 19.9 H (12.0-15.0) % Plt Count 207 (130-450) 10^3/uL MPV 11.1 H (7.9-10.8) fL Neut # (Auto) 12.8 H (1.5-6.6) 10^3/uL Lymph # (Auto) 1.7 (1.5-3.5) 10^3/uL Gregg # (Auto) 1.2 H (0.0-1.0) 10^3/uL Eos # (Auto) 0.3 (0.0-0.7) 10^3/uL Baso # (Auto) 0.1 (0.0-0.1) 10^3/uL Absolute Nucleated RBC 0.00 x10^3/uL Nucleated RBC % 0.0 /100WBC VBG pH 7.404 (7.31-7.41) Ionized Calcium 1.03 L (1.15-1.33) mmol/L Sodium 131 L (135-145) mmol/L Potassium 4.0 (3.5-5.0) mmol/L Chloride 103 (101-111) mmol/L Carbon Dioxide 22 (21-32) mmol/L Anion Gap 6.0 (6-13) BUN 17 (6-20) mg/dL Creatinine 0.5 (0.4-1.0) mg/dL Estimated GFR (MDRD) 129 (>89) Glucose 89 (70-100) mg/dL Calcium 7.1 L (8.5-10.3) mg/dL Phosphorus 2.3 L (2.5-4.6) mg/dL Magnesium 2.1 (1.7-2.8) mg/dL Iron (28-170) ug/dL Transferrin (192-382) mg/dL TSH (0.34-5.60) uIU/mL 05/11/22 Range/Units 20:00 WBC (4.8-10.8) x10^3/uL RBC (4.20-5.40) 10^6/uL Hgb (12.0-16.0) g/dL Hct (37.0-47.0) % MCV (81.0-99.0) fL MCH (27.0-31.0) pg MCHC (32.0-36.0) g/dL RDW (12.0-15.0) % Plt Count (130-450) 10^3/uL MPV (7.9-10.8) fL Neut # (Auto) (1.5-6.6) 10^3/uL Lymph # (Auto) (1.5-3.5) 10^3/uL Gregg # (Auto) (0.0-1.0) 10^3/uL Eos # (Auto) (0.0-0.7) 10^3/uL Baso # (Auto) (0.0-0.1) 10^3/uL Absolute Nucleated RBC x10^3/uL Nucleated RBC % /100WBC VBG pH (7.31-7.41) Ionized Calcium (1.15-1.33) mmol/L Sodium (135-145) mmol/L Potassium (3.5-5.0) mmol/L Chloride (101-111) mmol/L Carbon Dioxide (21-32) mmol/L Anion Gap (6-13) BUN (6-20) mg/dL Creatinine (0.4-1.0) mg/dL Estimated GFR (MDRD) (>89) Glucose (70-100) mg/dL Calcium (8.5-10.3) mg/dL Phosphorus 2.9 (2.5-4.6) mg/dL Magnesium (1.7-2.8) mg/dL Iron (28-170) ug/dL Transferrin (192-382) mg/dL TSH (0.34-5.60) uIU/mL Sepsis Event Note (H) - Evaluation Current Stage of Sepsis: Septic shock Possible source of Sepsis: positive: Implantable device, Genitourinary - Sepsis Criteria Sepsis Criteria: Recorded Heart Rate greater than 90 bpm, WBC count greater than 12,000 or less than 4000, PROGRAM STRATEGIST: altered consciousness (unrelated to primary neuro pathology), SBP less than 90 mmHg Assessment/Plan - Problem List (1) Septic shock Impression: She still remains on low doses of Levophed and iv fluids. Her white blood count was very elevated and is slowly decreasing since antibx started. Continue with blood pressure support with crystalloids and weaning Levophed to off when possible. Continue with IV antibiotics for the infection. Remain in the ICU (2) Pseudomonas infection/complicated urinary tract infection Impression: This is likely related to her chronic indwelling suprapubic catheter plus having recent urinary tract manipulation, she had lithotripsy 2 days before this admission. Urology was contacted by the ED provider and Urology did not recommend any other procedures, like changing the suprapubic catheter out. The (+) urine culture has been identified as Pseudomonas and the sensitivities are back and it is sensitive to the penams. Continue with IV meropenem. Await to see if blood cultures do turn positive, which will determine duration of antibx. Thus far bld cx are neg to date. Final results are awaited to tailor antibx. (3) Hyponatremia Impression: She was started on LR which was changed to NS when hyponatremia developed. Continue NS, currently at 125cc/hr Follow BMP daily (4) Abnormal EKG Conclusion/Plan: Her EKG, done in ED due to shock, showed new deep anterior T wave inversions. She may have had demand ischemia from the hypotension. The calcium, potassium and Mg were normal. We cycled troponins and they were abnormal, thus will start empiric aspirin and statin, no beta-rasta given her hypotension. Echo ordered to check for LV wall motion abnormalities (Echo service available , today is Thu) (5) Elevated troponins Conclusion/Plan: Her new deep T wave inversions anteriorly yesterday on EKG, have improved and her troponin peaked at 295. This is very likely consistent with a demand ischemia from her septic shock. An Echo has been ordered to evaluate LV function (today is Mon and we have no quality control lab technician here until Thursday). Because of her shock, no beta-blockers or Nitrates can be started. She has been started on 1 aspirin daily and statin (6) Cerebral palsy Conclusion/Plan: As per history. Continue with her usual home medication and usual management, foot braces if advised by Wound service. (7) Neurogenic bladder Conclusion/Plan: She has a chronic suprapubic indwelling Epps. We ordered standard Epps catheter care, however there is no measuring receptacle, thus RNs have been opening the bag to air hourly (per ICU protocol). Will change to I's and O's being measured qshift to decrease chance for infection. (8) Sacral decubitus ulcer Conclusion/Plan: She is normally followed at [facility] for longstanding sacral wounds and they also keep an eye on her tender shins. It was at wound clinic that she presented with obtundation and hypotension that prompted this ER visit. Will request wound clinic personnel to see her on Thursday when wound staff is here (today is Thu), I called the [facility] clinic and gave message (9) Depression Conclusion/Plan: Continue with her usual meds and management, (10) Hx HTN (hypertension) Conclusion/Plan: We will be holding her usual BP meds and management during hypotension (11) Anemia Conclusion/Plan: She appears to have anemia of chronic disease since the EMR shows she always runs hemoglobin around 10. We will be following her CBC daily. If there is a drop in Hgb, it could be from hemodilution. but would order PRBC transfuision if Hgb <7. (12) Neuropathy Conclusion/Plan: On past admissions, she stated that she did not want the SCDs and does not want her leg bandages, foot braces or sneakers removed, because of neuropathy pain when they are handled. We have ordered her usual pain meds. (13) BRYN (acute kidney injury) Conclusion/Plan: Resolved It was likely related to volume depletion noted on exam, or ATN from hypotension. Avoid nephrotoxins. Continue with iv fluids, decrease rate when her po intake improves Follow BMP daily Heparin SQ twice daily was ordered for DVT prophylaxis
[2022-05-12] MEDS: ASPIRIN EC 81 MG TABLET PO SCH (17:21)
[2022-05-12] MEDS ORDERED: SODIUM PHOSPHATE 15 MMOL in SODIUM CHLORIDE 0.9% 250 ML IV ONE (20:10)
[2022-05-12] MEDS: ATORVASTATIN 40 MG TABLET PO SCH (21:20)
[2022-05-12] MEDS: ZINC OXIDE 20% OINT 30 GM TUBE TOP PRN (21:37)
[2022-05-12 21:57] LABS: CALCIUM, IONIZED 1.1 mmol/L (1.15-1.33); VBG PH 7.405 (7.31-7.41)
[2022-05-13] MEDS: SODIUM CHLORIDE FLUSH 0.9% 10 ML SYRINGE IVP SCH ×3 (00:21→17:52)
[2022-05-13] MEDS: ONDANSETRON 4 MG/2 ML VIAL IVP PRN (00:29)
[2022-05-13] MEDS: MEROPENEM 1 GM in SODIUM CHLORIDE 0.9% MINIBAG 100 ML IV SCH ×3 (01:47→17:51)
[2022-05-13] MEDS: SODIUM CHLORIDE FLUSH 0.9% 10 ML SYRINGE IVP PRN (05:17)
[2022-05-13 05:33] LABS: BASOPHILS # (AUTO) 0.1 10^3/uL (0.0-0.1); BASOPHILS % (AUTO) 0.5 %; CALCIUM, IONIZED 1.07 mmol/L (1.15-1.33); EOSINOPHILS # (AUTO) 0.2 10^3/uL (0.0-0.7); EOSINOPHILS % (AUTO) 1.7 %; HCT - HEMATOCRIT 28.6 % (37.0-47.0); HGB - HEMOGLOBIN 9.5 g/dL (12.0-16.0); LYMPHOCYTES # (AUTO) 2.7 10^3/uL (1.5-3.5); LYMPHOCYTES % (AUTO) 21.3 %; MEAN CORPUSCULAR HEMOGLOBIN 28.6 pg (27.0-31.0); MEAN CORPUSCULAR HGB CONC 33.2 g/dL (32.0-36.0); MEAN CORPUSCULAR VOLUME 86.1 fL (81.0-99.0); MEAN PLATELET VOLUME 10.8 fL (7.9-10.8); MONOCYTES # (AUTO) 1.1 10^3/uL (0.0-1.0); NEUTROPHILS # (AUTO) 8.5 10^3/uL (1.5-6.6); NEUTROPHILS % (AUTO) 66.6 %; PLT - PLATELET COUNT 237 10^3/uL (130-450); RED BLOOD COUNT 3.32 10^6/uL (4.20-5.40); RED CELL DISTRIBUTION WIDTH 19.3 % (12.0-15.0); VBG PH 7.421 (7.31-7.41); WHITE BLOOD COUNT 12.7 x10^3/uL (4.8-10.8)
[2022-05-13] MEDS ORDERED: CALCIUM GLUC 1,000MG/50ML-NACL 1,000 MG/50 ML BAG IV ONE (05:44)
[2022-05-13] MEDS: SODIUM CHLORIDE 0.9% 1,000 ML IV SCH ×2 (05:53→15:37)
[2022-05-13 05:54] LABS: CALCIUM 7.2 mg/dL (8.5-10.3); CREATININE 0.4 mg/dL (0.4-1.0); MAGNESIUM 1.5 mg/dL (1.7-2.8); PHOSPHORUS 1.8 mg/dL (2.5-4.6); POTASSIUM 3.9 mmol/L (3.5-5.0)
[2022-05-13] MEDS ORDERED: MAGNESIUM SULFATE 2 GRAM 2 GM/50 ML BAG IV ONE (06:09)
[2022-05-13] MEDS ORDERED: POTASSIUM PHOSPHATE 15 MMOL in SODIUM CHLORIDE 0.9% 250 ML IV ONE (08:00)
[2022-05-13] MEDS: NYSTATIN CREAM 15 GM TUBE TOP SCH ×2 (09:00→21:01)
[2022-05-13] MEDS: ethyl alcohoL 62% SWAB AMPULE NAS SCH ×2 (09:12→21:00)
[2022-05-13] MEDS: CHOLECALCIFEROL 5,000 UNIT CAPSULE PO SCH (09:12)
[2022-05-13] MEDS: LACTOBACILLUS RHAMNOSUS GG CAPSULE PO SCH (09:12)
[2022-05-13] MEDS: ASPIRIN EC 81 MG TABLET PO SCH (09:12)
[2022-05-13] MEDS: MULTIVITAMIN W/MINERALS TABLET PO SCH (09:12)
[2022-05-13] MEDS: HEPARIN 5,000 UNIT/ML VIAL SUBQ SCH ×2 (09:13→21:00)
[2022-05-13] MEDS: NOREPINEPHRINE/D5W 8 MG/250 ML BAG IV SCH (11:00)
[2022-05-13 15:46] LABS: CALCIUM, IONIZED 1.05 mmol/L (1.15-1.33); VBG PH 7.42 (7.31-7.41)
[2022-05-13 15:58] LABS: MAGNESIUM 1.8 mg/dL (1.7-2.8); PHOSPHORUS 2.2 mg/dL (2.5-4.6); POTASSIUM 4.1 mmol/L (3.5-5.0)
[2022-05-13] MEDS ORDERED: SODIUM PHOSPHATE 15 MMOL in SODIUM CHLORIDE 0.9% 250 ML IV ONE (16:11)
--- NOTE | 2022-05-13 16:23 | PROVIDER PROGRESS NOTE ---
Subjective - Prog Note Date Prog Note Date: 05/13/22 Prog Note Time: 16:21 - Subjective Pt reports feeling: No change Subjective: She is very weak. Nausea is off and on.Seen this morning. I observed her as she and the nutrition staff talked about what her food order was going to beAnd then I examined her when they were done Still on Levophed drip to maintain systolic blood pressure or mean arterial pressure greater than 60. She is eating a dysphagia soft diet. But does not have much appetite. Just feels exhausted. No chest pain. Very weak cough. She has chronic wounds that are being followed by the [facility]. They are due to change those dressings on Thursday (today is Thursday) Current Medications - Current Medications Current Medications: Active Medications Acetaminophen (Acetaminophen 325 Mg Tablet) 650 mg PO Q4HR PRN PRN Reason: Pain 1 to 4, or Fever Last Admin: 05/10/22 05:43 Dose: 650 mg Alcohol (Ethyl Alcohol 62% Swab Ampule) 1 amp ANG BID KRAIG Last Admin: 05/13/22 09:12 Dose: 1 amp Aspirin (Aspirin Ec 81 Mg Tablet) 81 mg PO DAILY KRAIG Last Admin: 05/13/22 09:12 Dose: 81 mg Atorvastatin Calcium (Atorvastatin 40 Mg Tablet) 40 mg PO QPM KRAIG Last Admin: 05/12/22 21:20 Dose: 40 mg Calcium Carbonate/Glycine (Calcium Carbonate Chew 500 Mg Tablet) 1,250 mg PO Q4H KRAIG; Protocol Stop: 05/13/22 21:01 Cholecalciferol (Cholecalciferol 5,000 Unit Capsule) 5,000 unit PO DAILY KRAIG Last Admin: 05/13/22 09:12 Dose: 5,000 unit Heparin Sodium (Porcine) (Heparin 5,000 Unit/Ml Vial) 5,000 unit SUBQ BID KRAIG Last Admin: 05/13/22 09:13 Dose: 5,000 unit Meropenem 1 gm/ Sodium (Chloride) 100 mls @ 200 mls/hr IV Q8H KRAIG Last Infusion: 05/13/22 11:05 Dose: Infused Acetaminophen (Acetaminophen) 1,000 mg in 100 mls @ 400 mls/hr IV Q6HR PRN PRN Reason: Pain or Fever > 38C (100.4F) Last Infusion: 05/11/22 20:40 Dose: Infused Sodium Chloride (Normal Saline 0.9%) 1,000 mls @ 125 mls/hr IV .Q8H [facility] Last Admin: 05/13/22 15:37 Dose: 125 mls/hr Norepinephrine Bitartrate (Levophed 8 Mg/250 Ml D5w) 8 mg in 250 mls @ 15 mls/hr IV .[id number] [facility]; Protocol Last Admin: 05/13/22 11:00 Dose: 2 mcg/min, 3.75 mls/hr Sodium Phosphate 15 mmol/ (Sodium Chloride) 255 mls @ 63.75 mls/hr IV ONCE ONE; Protocol Stop: 05/13/22 20:10 Lactobacillus Rhamnosus (Lactobacillus Rhamnosus Gg Capsule) 1 cap PO DAILY [facility] Last Admin: 05/13/22 09:12 Dose: 1 cap Multi-Ingredient Ointment (Zinc Oxide 20% Oint 30 Gm Tube) 1 applic TOP PRN PRN PRN Reason: Skin Care Last Admin: 05/12/22 21:37 Dose: 1 applic Multivitamins/Minerals (Multivitamin W/Minerals Tablet) 1 tab PO DAILYWM [facility] Last Admin: 05/13/22 09:12 Dose: 1 tab Nystatin (Nystatin Cream 15 Gm Tube) 1 applic TOP BID [facility] Last Admin: 05/13/22 09:00 Dose: 1 applic Ondansetron HCl (Ondansetron 4 Mg/2 Ml Vial) 4 mg IVP Q6HR PRN PRN Reason: Nausea / Vomiting Last Admin: 05/13/22 00:29 Dose: 4 mg Prochlorperazine Edisylate (Prochlorperazine 10 Mg/2 Ml Vial) 10 mg IVP Q6HR PRN PRN Reason: Nausea / Vomiting Last Admin: 05/12/22 05:56 Dose: 10 mg Sodium Chloride (Sodium Chloride Flush 0.9% 10 Ml Syringe) 10 ml IVP 0100,0900,1700 [facility] Last Admin: 05/13/22 09:13 Dose: 10 ml Sodium Chloride (Sodium Chloride Flush 0.9% 10 Ml Syringe) 10 ml IVP PRN PRN PRN Reason: NEEDED PER PROVIDER ORDERS Last Admin: 05/12/22 05:56 Dose: 10 ml Sodium Chloride (Sodium Chloride Flush 0.9% 10 Ml Syringe) 20 ml IVP PRN PRN PRN Reason: After Blood Draw Last Admin: 05/13/22 05:17 Dose: 20 ml Propranolol [Inderal] 20 mg PO TID 04/27/13 Enalapril [Vasotec] 5 mg ORAL DAILY 05/14/14 Citalopram Hydrobromide [Celexa] 10 mg PO DAILY 08/22/16 Oxybutynin Chloride [Ditropan Xl] 10 mg PO DAILY 01/23/17 Quetiapine Fumarate [Seroquel Xr] 300 mg PO DAILY PM 01/23/17 ARIPiprazole [Abilify] 20 mg PO DAILY 08/28/17 hydrOXYzine pamoate [Hydroxyzine Pamoate] 25 mg PO DAILY PRN 07/09/18 Dexlansoprazole [Dexilant] 30 mg PO DAILY 02/16/21 Meloxicam [Mobic] 15 mg PO DAILY 02/16/21 buPROPion [Wellbutrin Xl] 150 mg PO DAILY 02/16/21 Zolpidem Tartrate [Ambien] 10 mg PO HS PRN 05/10/22 Objective - Vital Signs/Intake & Output Reviewed Vital Signs: Yes Vital Signs: Vital Signs x48h Temp Pulse Resp BP Pulse Ox 05/13/22 16:16 36.9 C 05/13/22 16:00 90 14 108/93 H 99 05/13/22 15:00 90 22 94/81 H 97 05/13/22 14:00 87 18 96/78 95 05/13/22 13:00 92 12 103/87 H 97 05/13/22 12:12 37.0 C 05/13/22 12:00 93 11 L 101/82 H 96 05/13/22 11:00 94 19 104/78 95 05/13/22 10:00 99 10 L 109/78 95 05/13/22 09:00 90 27 H 113/88 H 96 Intake & Output: Intake & Output 05/10/22 05/11/22 05/12/22 05/13/22 23:59 23:59 23:59 23:59 Intake Total 5561.874 5083.675 4462.625 3226.000 Output Total 1070 1360 1010 1025 Balance 4491.874 3723.675 3452.625 2201.000 - Objective General Appearance: positive: No acute distress, Alert, Other (She is so weak that she is slumped over to her right side, she is a chronic so I do not know how much worse her baseline status is.) Eyes Bilateral: positive: PERRL, EOMI ENT: positive: Dry mucous membranes (Mildly so.) Neck: positive: No JVD. negative: Stiff neck Respiratory: positive: No respiratory distress, Other (Weak, slow, unlabored respiration. Diminished breath sounds diffusely. While she has no lung findings, her respiratory drive is still weak, that she would be at risk for not being able to bring up secretions) Cardiovascular: positive: Regular rate & rhythm Abdomen: positive: Non-tender, No organomegaly, Nml bowel sounds, No distention Skin: positive: Warm, Dry, Other (sacral, heel breakdowns noted by nursing that are chronic and followed by wound clinic. patinet asks not to be examined for those now and states those are chronic but does ask for bed to be rotated.) Extremities: positive: No pedal edema Neurologic/Psychiatric: positive: Oriented x3, CN's nml (2-12). negative: Motor nml - Lab Results Fish Bones: 05/14/22 05:10 05/14/22 05:10 Other Labs: Lab Results x24hrs 05/13/22 05/13/22 05/13/22 Range/Units 15:30 15:30 05:15 WBC (4.8-10.8) x10^3/uL RBC (4.20-5.40) 10^6/uL Hgb (12.0-16.0) g/dL Hct (37.0-47.0) % MCV (81.0-99.0) fL MCH (27.0-31.0) pg MCHC (32.0-36.0) g/dL RDW (12.0-15.0) % Plt Count (130-450) 10^3/uL MPV (7.9-10.8) fL Neut # (Auto) (1.5-6.6) 10^3/uL Lymph # (Auto) (1.5-3.5) 10^3/uL Fergus # (Auto) (0.0-1.0) 10^3/uL Eos # (Auto) (0.0-0.7) 10^3/uL Baso # (Auto) (0.0-0.1) 10^3/uL Absolute Nucleated RBC x10^3/uL Nucleated RBC % /100WBC VBG pH 7.420 H 7.421 H (7.31-7.41) Ionized Calcium 1.05 L 1.07 L (1.15-1.33) mmol/L Sodium (135-145) mmol/L Potassium 4.1 (3.5-5.0) mmol/L Chloride (101-111) mmol/L Carbon Dioxide (21-32) mmol/L Anion Gap (6-13) BUN (6-20) mg/dL Creatinine (0.4-1.0) mg/dL Estimated GFR (MDRD) (>89) Glucose (70-100) mg/dL Calcium (8.5-10.3) mg/dL Phosphorus 2.2 L (2.5-4.6) mg/dL Magnesium 1.8 (1.7-2.8) mg/dL Vitamin D 25-Hydroxy (30.0-100.0) ng/mL 05/13/22 05/13/22 05/12/22 Range/Units 05:15 05:15 21:43 WBC 12.7 H (4.8-10.8) x10^3/uL RBC 3.32 L (4.20-5.40) 10^6/uL Hgb 9.5 L (12.0-16.0) g/dL Hct 28.6 L (37.0-47.0) % MCV 86.1 (81.0-99.0) fL MCH 28.6 (27.0-31.0) pg MCHC 33.2 (32.0-36.0) g/dL RDW 19.3 H (12.0-15.0) % Plt Count 237 (130-450) 10^3/uL MPV 10.8 (7.9-10.8) fL Neut # (Auto) 8.5 H (1.5-6.6) 10^3/uL Lymph # (Auto) 2.7 (1.5-3.5) 10^3/uL Fergus # (Auto) 1.1 H (0.0-1.0) 10^3/uL Eos # (Auto) 0.2 (0.0-0.7) 10^3/uL Baso # (Auto) 0.1 (0.0-0.1) 10^3/uL Absolute Nucleated RBC 0.00 x10^3/uL Nucleated RBC % 0.0 /100WBC VBG pH 7.405 (7.31-7.41) Ionized Calcium 1.10 L (1.15-1.33) mmol/L Sodium 130 L (135-145) mmol/L Potassium 3.9 (3.5-5.0) mmol/L Chloride 104 (101-111) mmol/L Carbon Dioxide 22 (21-32) mmol/L Anion Gap 4.0 L (6-13) BUN 11 (6-20) mg/dL Creatinine 0.4 (0.4-1.0) mg/dL Estimated GFR (MDRD) 167 (>89) Glucose 89 (70-100) mg/dL Calcium 7.2 L (8.5-10.3) mg/dL Phosphorus 1.8 L (2.5-4.6) mg/dL Magnesium 1.5 L (1.7-2.8) mg/dL Vitamin D 25-Hydroxy (30.0-100.0) ng/mL 05/09/22 Range/Units 12:10 WBC (4.8-10.8) x10^3/uL RBC (4.20-5.40) 10^6/uL Hgb (12.0-16.0) g/dL Hct (37.0-47.0) % MCV (81.0-99.0) fL MCH (27.0-31.0) pg MCHC (32.0-36.0) g/dL RDW (12.0-15.0) % Plt Count (130-450) 10^3/uL MPV (7.9-10.8) fL Neut # (Auto) (1.5-6.6) 10^3/uL Lymph # (Auto) (1.5-3.5) 10^3/uL Fergus # (Auto) (0.0-1.0) 10^3/uL Eos # (Auto) (0.0-0.7) 10^3/uL Baso # (Auto) (0.0-0.1) 10^3/uL Absolute Nucleated RBC x10^3/uL Nucleated RBC % /100WBC VBG pH (7.31-7.41) Ionized Calcium (1.15-1.33) mmol/L Sodium (135-145) mmol/L Potassium (3.5-5.0) mmol/L Chloride (101-111) mmol/L Carbon Dioxide (21-32) mmol/L Anion Gap (6-13) BUN (6-20) mg/dL Creatinine (0.4-1.0) mg/dL Estimated GFR (MDRD) (>89) Glucose (70-100) mg/dL Calcium (8.5-10.3) mg/dL Phosphorus (2.5-4.6) mg/dL Magnesium (1.7-2.8) mg/dL Vitamin D 25-Hydroxy 17.3 L (30.0-100.0) ng/mL ABX Reporting Has patient been on IV antibiotics over the past 48 hours?: Yes Sepsis Event Note (H) - Evaluation Current Stage of Sepsis: Septic shock Possible source of Sepsis: positive: Implantable device, Genitourinary - Sepsis Criteria Sepsis Criteria: Recorded Heart Rate greater than 90 bpm, WBC count greater than 12,000 or less than 4000, AIRBRUSH PAINTER: altered consciousness (unrelated to primary neuro pathology), SBP less than 90 mmHg Assessment/Plan - Problem List (1) Septic shock Impression: She still remains on low doses of Levophed and iv fluids. Her white blood count was very elevated and is slowly decreasing since antibx started. She started at 32.4 and is now down to 12.7. Blood culture has been negative at 2 days for May 09. It was also negative on May 10. Blood culture from the central line was also negat kaitlin. Urine culture positive for Pseudomonas. Plan: Continue with blood pressure support with crystalloids and weaning Levophed to off when possible. Continue with IV antibiotics for the infection. Remain in the ICU (2) Pseudomonas infection/complicated urinary tract infection Impression: This is likely related to her chronic indwelling suprapubic catheter plus having recent urinary tract manipulation, she had lithotripsy 2 days before this admission. Urology was contacted by the ED provider and Urology did not recommend any other procedures, like changing the suprapubic catheter out. The (+) urine culture has been identified as Pseudomonas and the sensitivities are back and it is sensitive to the penams. Resistant to cefazolin, ciprofloxacin, levofloxacin. She is day #4/7 of antibiotics. Plan: Continue with IV meropenem. (3) Hyponatremia Impression: She was started on LR which was changed to NS when hyponatremia developed. Continue NS, currently at 125cc/hr Follow BMP daily (4) Abnormal EKG Conclusion/Plan: Her EKG, done in ED due to shock, showed new deep anterior T wave inversions. She may have had demand ischemia from the hypotension. The calcium, potassium and Mg were normal. We cycled troponins and they were abnormal, thus will start empiric aspirin and statin, no beta-rasta given her hypotension. Echo ordered to check for LV wall motion abnormalities (Echo service available , today is Thu) (5) Elevated troponins Conclusion/Plan: Her new deep T wave inversions anteriorly 05/11 on EKG, have improved and her troponin peaked at 295. This is very likely consistent with a demand ischemia from her septic shock. An Echo has been ordered to evaluate LV function . It has not been done yet as of today. Because of her shock, no beta-blockers or Nitrates can be started. She has been started on 1 aspirin daily and statin (6) Cerebral palsy Conclusion/Plan: As per history. Continue with her usual home medication and usual management, foot braces if advised by Wound service. (7) Neurogenic bladder Conclusion/Plan: She has a chronic suprapubic indwelling Epps. We ordered standard Epps catheter care, however there is no measuring receptacle, thus RNs have been opening the bag to air hourly (per ICU protocol). Will change to I's and O's being measured qshift to decrease chance for infection. (8) Sacral decubitus ulcer Conclusion/Plan: She is normally followed at [facility] for longstanding sacral wounds and they also keep an eye on her tender shins. It was at wound clinic that she presented with obtundation and hypotension that prompted this ER visit. Will request wound clinic personnel to see her on Thursday when wound staff is here (today is Thu), I called the [facility] clinic and gave message (9) Depression Conclusion/Plan: Continue with her usual meds and management, (10) Hx HTN (hypertension) Conclusion/Plan: We will be holding her usual BP meds and management during hypotension (11) Anemia Conclusion/Plan: She appears to have anemia of chronic disease since the EMR shows she always runs hemoglobin around 10. We will be following her CBC daily. If there is a drop in Hgb, it could be from hemodilution. but would order PRBC transfuision if Hgb <7. (12) Neuropathy Conclusion/Plan: On past admissions, she stated that she did not want the SCDs and does not want her leg bandages, foot braces or sneakers removed, because of neuropathy pain when they are handled. We have ordered her usual pain meds. (13) BRYN (acute kidney injury) Conclusion/Plan: Resolved It was likely related to volume depletion noted on exam, or ATN from hypotension. Avoid nephrotoxins. Continue with iv fluids, decrease rate when her po intake improves Follow BMP daily Heparin SQ twice daily was ordered for DVT prophylaxis
[2022-05-13] MEDS: CALCIUM CARBONATE CHEW 500 MG TABLET PO SCH ×2 (17:52→20:59)
[2022-05-13] MEDS: ACETAMINOPHEN 325 MG TABLET PO PRN (20:58)
[2022-05-13] MEDS: ATORVASTATIN 40 MG TABLET PO SCH (20:59)
[2022-05-14] MEDS: SODIUM CHLORIDE FLUSH 0.9% 10 ML SYRINGE IVP SCH ×3 (00:25→16:34)
[2022-05-14] MEDS: SODIUM CHLORIDE FLUSH 0.9% 10 ML SYRINGE IVP PRN ×4 (00:25→20:52)
[2022-05-14] MEDS: SODIUM CHLORIDE 0.9% 1,000 ML IV SCH ×4 (00:25→19:40)
[2022-05-14] MEDS: MEROPENEM 1 GM in SODIUM CHLORIDE 0.9% MINIBAG 100 ML IV SCH (01:29)
[2022-05-14] MEDS: NOREPINEPHRINE/D5W 8 MG/250 ML BAG IV SCH ×2 (05:11→21:57)
[2022-05-14 05:22] LABS: BASOPHILS % (AUTO) 0.5 %; EOSINOPHILS # (AUTO) 0.2 10^3/uL (0.0-0.7); EOSINOPHILS % (AUTO) 3.8 %; HCT - HEMATOCRIT 24.4 % (37.0-47.0); HGB - HEMOGLOBIN 8.3 g/dL (12.0-16.0); LYMPHOCYTES # (AUTO) 1.6 10^3/uL (1.5-3.5); LYMPHOCYTES % (AUTO) 27.1 %; MEAN CORPUSCULAR HEMOGLOBIN 29.5 pg (27.0-31.0); MEAN CORPUSCULAR VOLUME 86.8 fL (81.0-99.0); MEAN PLATELET VOLUME 10.8 fL (7.9-10.8); MONOCYTES # (AUTO) 0.5 10^3/uL (0.0-1.0); NEUTROPHILS # (AUTO) 3.5 10^3/uL (1.5-6.6); NEUTROPHILS % (AUTO) 59.7 %; PLT - PLATELET COUNT 202 10^3/uL (130-450); RED BLOOD COUNT 2.81 10^6/uL (4.20-5.40); VBG PH 7.412 (7.31-7.41); WHITE BLOOD COUNT 5.8 x10^3/uL (4.8-10.8)
[2022-05-14 05:23] LABS: CALCIUM, IONIZED 1.1 mmol/L (1.15-1.33)
[2022-05-14 05:31] LABS: CALCIUM 7.2 mg/dL (8.5-10.3); CREATININE 0.4 mg/dL (0.4-1.0); POTASSIUM 3.6 mmol/L (3.5-5.0)
[2022-05-14 06:16] LABS: MAGNESIUM 1.8 mg/dL (1.7-2.8); PHOSPHORUS 2.2 mg/dL (2.5-4.6)
[2022-05-14] MEDS: NEUTRA-PHOS 250 MG TABLET PO SCH ×2 (07:08→09:45)
[2022-05-14] MEDS: MAGNESIUM OXIDE 400 MG TABLET PO SCH ×2 (07:08→12:31)
[2022-05-14] MEDS: CALCIUM CARBONATE CHEW 500 MG TABLET PO SCH ×2 (07:09→11:06)
[2022-05-14] MEDS ORDERED: POTASSIUM CHLORIDE 20 MEQ TABLET PO ONE (08:00)
[2022-05-14] MEDS: CHOLECALCIFEROL 5,000 UNIT CAPSULE PO SCH (09:44)
[2022-05-14] MEDS: MULTIVITAMIN W/MINERALS TABLET PO SCH (09:44)
[2022-05-14] MEDS: ethyl alcohoL 62% SWAB AMPULE NAS SCH ×2 (09:44→21:24)
[2022-05-14] MEDS: ASPIRIN EC 81 MG TABLET PO SCH (09:44)
[2022-05-14] MEDS: LACTOBACILLUS RHAMNOSUS GG CAPSULE PO SCH (09:44)
[2022-05-14] MEDS: HEPARIN 5,000 UNIT/ML VIAL SUBQ SCH ×2 (10:55→21:25)
[2022-05-14] MEDS: NYSTATIN CREAM 15 GM TUBE TOP SCH ×2 (11:54→21:24)
[2022-05-14] MEDS: ZINC OXIDE 20% OINT 30 GM TUBE TOP PRN (11:55)
--- NOTE | 2022-05-14 11:57 | PROVIDER PROGRESS NOTE ---
Subjective - Prog Note Date Prog Note Date: 05/14/22 Prog Note Time: 11:00 - Subjective Pt reports feeling: Improved (Pt reports feeling good, better than yesterday.) Current Medications - Current Medications Current Medications: Active Medications Acetaminophen (Acetaminophen 325 Mg Tablet) 650 mg PO Q4HR PRN PRN Reason: Pain 1 to 4, or Fever Last Admin: 05/13/22 20:58 Dose: 650 mg Alcohol (Ethyl Alcohol 62% Swab Ampule) 1 amp ANG BID [facility] Last Admin: 05/14/22 09:44 Dose: 1 amp Amoxicillin/Clavulanate Potassium (Amox/Clav 500 Mg/125 Mg Tablet) 1 tab PO BID [facility] Aspirin (Aspirin Ec 81 Mg Tablet) 81 mg PO DAILY [facility] Last Admin: 05/14/22 09:44 Dose: 81 mg Atorvastatin Calcium (Atorvastatin 40 Mg Tablet) 40 mg PO QPM [facility] Last Admin: 05/13/22 20:59 Dose: 40 mg Cholecalciferol (Cholecalciferol 5,000 Unit Capsule) 5,000 unit PO DAILY [facility] Last Admin: 05/14/22 09:44 Dose: 5,000 unit Heparin Sodium (Porcine) (Heparin 5,000 Unit/Ml Vial) 5,000 unit SUBQ BID [facility] Last Admin: 05/14/22 10:55 Dose: 5,000 unit Acetaminophen (Acetaminophen) 1,000 mg in 100 mls @ 400 mls/hr IV Q6HR PRN PRN Reason: Pain or Fever > 38C (100.4F) Last Infusion: 05/11/22 20:40 Dose: Infused Sodium Chloride (Normal Saline 0.9%) 1,000 mls @ 125 mls/hr IV .Q8H KRAIG Last Admin: 05/14/22 11:55 Dose: Not Given Norepinephrine Bitartrate (Levophed 8 Mg/250 Ml D5w) 8 mg in 250 mls @ 15 mls/hr IV .[id number] KRAIG; Protocol Last Admin: 05/14/22 05:11 Dose: Not Given Lactobacillus Rhamnosus (Lactobacillus Rhamnosus Gg Capsule) 1 cap PO DAILY [facility] Last Admin: 05/14/22 09:44 Dose: 1 cap Magnesium Oxide (Magnesium Oxide 400 Mg Tablet) 400 mg PO Q6H KRAIG; Protocol Stop: 05/14/22 13:01 Last Admin: 05/14/22 07:08 Dose: 400 mg Multi-Ingredient Ointment (Zinc Oxide 20% Oint 30 Gm Tube) 1 applic TOP PRN PRN PRN Reason: Skin Care Last Admin: 05/14/22 11:55 Dose: 1 applic Multivitamins/Minerals (Multivitamin W/Minerals Tablet) 1 tab PO DAILYWM [facility] Last Admin: 05/14/22 09:44 Dose: 1 tab Nystatin (Nystatin Cream 15 Gm Tube) 1 applic TOP BID [facility] Last Admin: 05/14/22 11:54 Dose: 1 applic Ondansetron HCl (Ondansetron 4 Mg/2 Ml Vial) 4 mg IVP Q6HR PRN PRN Reason: Nausea / Vomiting Last Admin: 05/13/22 00:29 Dose: 4 mg Prochlorperazine Edisylate (Prochlorperazine 10 Mg/2 Ml Vial) 10 mg IVP Q6HR PRN PRN Reason: Nausea / Vomiting Last Admin: 05/12/22 05:56 Dose: 10 mg Sodium Chloride (Sodium Chloride Flush 0.9% 10 Ml Syringe) 10 ml IVP 0100,0900,1700 [facility] Last Admin: 05/14/22 09:15 Dose: 30 ml Sodium Chloride (Sodium Chloride Flush 0.9% 10 Ml Syringe) 10 ml IVP PRN PRN PRN Reason: NEEDED PER PROVIDER ORDERS Last Admin: 05/14/22 00:25 Dose: 10 ml Sodium Chloride (Sodium Chloride Flush 0.9% 10 Ml Syringe) 20 ml IVP PRN PRN PRN Reason: After Blood Draw Last Admin: 05/14/22 05:11 Dose: 20 ml Propranolol [Inderal] 20 mg PO TID 04/27/13 Enalapril [Vasotec] 5 mg ORAL DAILY 05/14/14 Citalopram Hydrobromide [Celexa] 10 mg PO DAILY 08/22/16 Oxybutynin Chloride [Ditropan Xl] 10 mg PO DAILY 01/23/17 Quetiapine Fumarate [Seroquel Xr] 300 mg PO DAILY PM 01/23/17 ARIPiprazole [Abilify] 20 mg PO DAILY 08/28/17 hydrOXYzine pamoate [Hydroxyzine Pamoate] 25 mg PO DAILY PRN 07/09/18 Dexlansoprazole [Dexilant] 30 mg PO DAILY 02/16/21 Meloxicam [Mobic] 15 mg PO DAILY 02/16/21 buPROPion [Wellbutrin Xl] 150 mg PO DAILY 02/16/21 Zolpidem Tartrate [Ambien] 10 mg PO HS PRN 05/10/22 Objective - Vital Signs/Intake & Output Reviewed Vital Signs: Yes Vital Signs: Vital Signs x48h Temp Pulse Resp BP Pulse Ox 05/14/22 11:00 100 15 107/88 H 97 05/14/22 10:00 101 H 15 103/70 92 05/14/22 09:00 103 H 19 96/54 L 97 05/14/22 08:00 36.7 C 95 15 103/71 97 05/14/22 07:01 91 15 101/81 H 97 05/14/22 06:06 89 19 94/66 97 05/14/22 06:00 89 16 94/66 97 05/14/22 05:05 89 18 88/68 L 97 05/14/22 04:02 85 15 86/65 L 95 Intake & Output: Intake & Output 05/11/22 05/12/22 05/13/22 05/14/22 23:59 23:59 23:59 23:59 Intake Total 5083.675 4462.625 4616.469 1220 Output Total 1360 1010 1225 450 Balance 3723.675 3452.625 3391.469 770 - Objective General Appearance: positive: No acute distress, Other (She has some limited mobility d/t CP, but is presenting close to her baseline function per step mother.) Eyes Bilateral: positive: Normal inspection, PERRL, EOMI ENT: positive: ENT inspection nml Neck: positive: Nml inspection, No JVD. negative: Stiff neck Respiratory: positive: No respiratory distress, Other (Diminished breath sounds diffusely.) Cardiovascular: positive: Regular rate & rhythm Abdomen: positive: Non-tender, Nml bowel sounds, No distention Back: positive: Other (Decubitus ulcers present on sacral area, stage 3.) Skin: positive: Decubitus (Decubitus ulcers present on sacral area, stage 3.), Other Extremities: positive: Other (Limited ROM d/t CP. Right heel decubitus ulcer. stage 3.) Neurologic/Psychiatric: positive: Oriented x3 - Lab Results Fish Bones: 05/15/22 04:36 05/15/22 04:36 Other Labs: Lab Results x24hrs 05/14/22 05/14/22 05/14/22 Range/Units 05:10 05:10 05:10 WBC (4.8-10.8) x10^3/uL RBC (4.20-5.40) 10^6/uL Hgb (12.0-16.0) g/dL Hct (37.0-47.0) % MCV (81.0-99.0) fL MCH (27.0-31.0) pg MCHC (32.0-36.0) g/dL RDW (12.0-15.0) % Plt Count (130-450) 10^3/uL MPV (7.9-10.8) fL Neut # (Auto) (1.5-6.6) 10^3/uL Lymph # (Auto) (1.5-3.5) 10^3/uL Bennett # (Auto) (0.0-1.0) 10^3/uL Eos # (Auto) (0.0-0.7) 10^3/uL Baso # (Auto) (0.0-0.1) 10^3/uL Absolute Nucleated RBC x10^3/uL Nucleated RBC % /100WBC VBG pH 7.412 H (7.31-7.41) Ionized Calcium 1.10 L (1.15-1.33) mmol/L Sodium 131 L (135-145) mmol/L Potassium 3.6 (3.5-5.0) mmol/L Chloride 105 (101-111) mmol/L Carbon Dioxide 21 (21-32) mmol/L Anion Gap 5.0 L (6-13) BUN 9 (6-20) mg/dL Creatinine 0.4 (0.4-1.0) mg/dL Estimated GFR (MDRD) 167 (>89) Glucose 84 (70-100) mg/dL Calcium 7.2 L (8.5-10.3) mg/dL Phosphorus 2.2 L (2.5-4.6) mg/dL Magnesium 1.8 (1.7-2.8) mg/dL 05/14/22 05/14/22 05/13/22 Range/Units 05:10 00:25 15:30 WBC 5.8 (4.8-10.8) x10^3/uL RBC 2.81 L (4.20-5.40) 10^6/uL Hgb 8.3 L (12.0-16.0) g/dL Hct 24.4 L (37.0-47.0) % MCV 86.8 (81.0-99.0) fL MCH 29.5 (27.0-31.0) pg MCHC 34.0 (32.0-36.0) g/dL RDW 19.0 H (12.0-15.0) % Plt Count 202 (130-450) 10^3/uL MPV 10.8 (7.9-10.8) fL Neut # (Auto) 3.5 (1.5-6.6) 10^3/uL Lymph # (Auto) 1.6 (1.5-3.5) 10^3/uL Bennett # (Auto) 0.5 (0.0-1.0) 10^3/uL Eos # (Auto) 0.2 (0.0-0.7) 10^3/uL Baso # (Auto) 0.0 (0.0-0.1) 10^3/uL Absolute Nucleated RBC 0.00 x10^3/uL Nucleated RBC % 0.0 /100WBC VBG pH 7.420 H (7.31-7.41) Ionized Calcium 1.05 L (1.15-1.33) mmol/L Sodium (135-145) mmol/L Potassium (3.5-5.0) mmol/L Chloride (101-111) mmol/L Carbon Dioxide (21-32) mmol/L Anion Gap (6-13) BUN (6-20) mg/dL Creatinine (0.4-1.0) mg/dL Estimated GFR (MDRD) (>89) Glucose (70-100) mg/dL Calcium (8.5-10.3) mg/dL Phosphorus 2.5 (2.5-4.6) mg/dL Magnesium (1.7-2.8) mg/dL 05/13/22 Range/Units 15:30 WBC (4.8-10.8) x10^3/uL RBC (4.20-5.40) 10^6/uL Hgb (12.0-16.0) g/dL Hct (37.0-47.0) % MCV (81.0-99.0) fL MCH (27.0-31.0) pg MCHC (32.0-36.0) g/dL RDW (12.0-15.0) % Plt Count (130-450) 10^3/uL MPV (7.9-10.8) fL Neut # (Auto) (1.5-6.6) 10^3/uL Lymph # (Auto) (1.5-3.5) 10^3/uL Bennett # (Auto) (0.0-1.0) 10^3/uL Eos # (Auto) (0.0-0.7) 10^3/uL Baso # (Auto) (0.0-0.1) 10^3/uL Absolute Nucleated RBC x10^3/uL Nucleated RBC % /100WBC VBG pH (7.31-7.41) Ionized Calcium (1.15-1.33) mmol/L Sodium (135-145) mmol/L Potassium 4.1 (3.5-5.0) mmol/L Chloride (101-111) mmol/L Carbon Dioxide (21-32) mmol/L Anion Gap (6-13) BUN (6-20) mg/dL Creatinine (0.4-1.0) mg/dL Estimated GFR (MDRD) (>89) Glucose (70-100) mg/dL Calcium (8.5-10.3) mg/dL Phosphorus 2.2 L (2.5-4.6) mg/dL Magnesium 1.8 (1.7-2.8) mg/dL Sepsis Event Note (H) - Evaluation Current Stage of Sepsis: Resolved Possible source of Sepsis: positive: Implantable device, Genitourinary Assessment/Plan - Problem List (1) Septic shock Impression: Levophed and meropenem discontinued. WBC count down to 5.8. Blood culture from central line has no growth after 5 days. Resolved. (2) Pseudomonas urinary tract infection Impression: Likely related to her chronic indwelling suprapubic catheter and her lithotripsy two days prior to this admission. Urology was contacted by ED and did not recommend any interventions, such as changing the suprapubic catheter. The urine culture was positive for pseudomonas. Sensitive to penams, resistance to cefazolin, ciproflaxin, and levoflaxin. Started augmention PO BID. (3) Hyponatremia Impression: Her sodium is still low at 131. Plan to continue to monitor her BMP daily. (4) Abnormal EKG Impression: Her echocardiogram results were as follows, the left ventricle function is mild- moderately impaired, the calculated EF is 41%, diastolic function is indeterminate, regional wall motion abnormalities were seen, the apical 2/3 of the left ventricle was hypokinetic, and the basal wall seggents had the best contractility. The interatrial septum bows toward the right atrium, this is consistent with elevated atrial pressure. Will continue aspirin, statin, enalapril. Will start lasix. (5) Neurogenic bladder Impression: Chronic suprapubic indwelling catheter will remain. (6) Pressure injury of right heel, stage 3 Impression: Follow up with [facility], where she is an established patient. (7) Pressure injury of sacral region, stage 3 Impression: Follow up with [facility] wound clinic, where she is an established patient. (8) Depression Impression: Please see advanced care planning communication dictated in separate note. (9) HTN (hypertension) Impression: She is no longer hypertensive and is tolerating PO medications, continue regular hypertensive regimen. (10) Anemia Impression: She appears to have anemia of chronic disease, her EMR shows her hemoglobin is normally about 10. Will continue CBC daily. If there is a drop in HgB<7, a PRBC will be ordered.
[2022-05-14] MEDS: ACETAMINOPHEN 325 MG TABLET PO PRN ×2 (12:28→16:34)
--- NOTE | 2022-05-14 17:03 | ADVANCE CARE PLANNING NOTE ---
Advance Care Planning - Planning Encounter Date: 05/14/22 Time: 17:02 Purpose: establish care goals Parties in Attendance: hospitalist and stepmomary beth/POErick Kaba, patient is unable to participate due to sedation/sleepiness. POA phone is [phone] Decisional Capacity of the Patient: Really tired, disengaged, lethargic with decreasing ability to be alert and logical over the last year to 2 - Encounter Subjective/Patient's Story: Diagnosis for this encounter is cerebral palsy This patient has a history of cerebral palsy with chronic muscle spasms and chronic back pain. She has had multiple orthopedic surgeries of hip, groin, and ankle to release contractures. She did have a in 1989 and has 1 child. She lives alone and has 11 hours a day of home care providers through [employer]. She has a chronic indwelling Epps catheter with multiple hospitalizations for drug-resistant UTIs. She also has chronic constipation. Because of bipolar disorder, she has been on Abilify, bupropion, Ativan, citalopram and Seroquel for quite some time. She is to be followed by [facility] saravanan Jacobson but that provider has left the area so she has not been seen by [facility] for over a year. Currently her medications are given to her by Dr. Wiggins, her primary care provider through [facility]. Her power of deputy attorney general describes her as "really tired all the time". She used to be a patient that could joke, laugh, participate in family conversations but now is sedated, lethargic, and can't wake up most days. She has had multiple multiple visits to the emergency room for suprapubic catheter dysfunction, or catheter getting clogged. She was admitted in 2013 for bladder spasms and a UTI. And was not admitted again until December 2019. Next admission was February 2021 because of a heat wave, and multiple sacral decubitus ulcers. She was seen by general surgery and no wound debridement was done. At that time a Daiana lift was ordered and home health nursing and physical therapy were arranged. She has been followed by Natacha Vela in the wound clinic since that time. She is now admitted because of somnolence. She had gone to the wound clinic for follow-up of her sacral ulcers and she was hypotensive with a blood pressure of 50/30. She met criteria for sepsis with hypotension, altered mental status, elevated white cell count to 32, a lactic acid that was normal, and a creatinine of 1.3. She was started on Levophed, antibiotics, crystalloids. Her power of deputy attorney general defines her quality of life as: 1. Living in her own apartment 2. Taking trips to [facility] in her modified van 3. Being with her dog 4. Being able to be in her wheelchair and be put in the [place] The patient iterates that she has some other goals. Her power of deputy attorney general says those goals are almost childlike in their wishful thinking. the patient thinks that she will eventually be able to put braces on her legs after some type of rehab and walk again. the patient thinks that she will be able to get rid of her catheter and not ever need that again. But over the course of the last 1 to 2 years the patient has become exceedingly weaker. More bedbound. Her ability to think clearly is fading. She is tired all the time, and is become "a zombie" on all of her medication. Objective/Medical Story: This is a 52-year-old WF with history of hypertension, GERD, depression, PTSD, cerebral palsy with neurogenic bladder, chronic indwelling suprapubic bladder catheter, and has had frequent UTIs in the past. She is bedbound and has contractures, she has a wheelchair and gets a visiting nurse and also was on many chronic oral antibiotics. In February 2021, she was admitted here for treating sacral decubiti and sacral cellulitis. 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 Today she presented to [facility] and [employer] Tump[employer]in found to be hypotensive, BP 50/30 and she was somnolent and sent pt to the emergency room. In the ED her work-up shows that she has urosepsis with an abnormal urinalysis, White blood count 32, lactic acid normal, newly elevated creatinine of 1.3 (usual is 0.9) and BP 60/40. She had abdominal CT that showed no obstruction. Urology was contacted because she had just had lithotripsy 2 days ago with a stent in place. Urology told our ED provider that no other procedure is needed currently. She was started on Levophed, got 3 L of crystalloids and has been started on iv meropenem after blood cultures were done. Of note her EKG shows new deep T wave inversions in V2 and V3, and troponins are still pending. The ED provider has reached out to the Hospitalist team to admit this patient for septic shock from urinary source related to a chronic suprapubic catheter which is required for neurogenic bladder in a patient with cerebral palsy, and also possibly caused by the recent urinary tract manipulation (lithotripsy). Patient has an Advance Care Plan in the EMR, signed February 2022 that indicates she wants full treatment and full CODE STATUS unless she is in a vegetative state. - Past Medical History Cardiovascular: reports: Hypertension Respiratory: reports: Asthma, Other Neuro: reports: Cerebral palsy Endocrine/Autoimmune: reports: Other GI: reports: GERD COREMAKER HELPER: reports: None : reports: Indwelling catheter HEENT: reports: Chronic vision loss Psych: reports: Depression, Anxiety, Bipolar disorder, Post traumatic stress disorder Musculoskeletal: reports: Osteoarthritis, Other Derm: reports: Psoriasis MRSA Hx?: Yes - Past Surgical History General: reports: Hiatal hernia repair, EGD Ortho: reports: Other /COREMAKER HELPER: reports: section, Hysterectomy She has been in the ICU on Levophed until today. She has been successfully treated for Pseudomonas UTI that is sensitive to meropenem. White cell count is normal. No fevers. She is very sedated, lethargic, and her power of deputy attorney general feels some of this is not only due to her infection but also due to her sedate of psych drugs. Today's echocardiogram showed an ejection fraction of 41%. This is a new diagnosis for her. Goals of Care: 1. Living in her own apartment 2. Taking trips to [facility] in her modified van 3. Being with her dog 4. Being able to be in her wheelchair and be put in the van and [place] 5. Be able to think a little bit more clearly and have more strength Plan: For the most part there is not can to be any change in the patient's daily life. She has an excellent support system with her stepmother, father. [place] She has 11 hours of caregiving on a daily basis. However, I do agree that she is quite sedated. And I can see where she is "a zombie". My recommendation would be to follow-up with primary care provider in the next week or 2 after discharge to: 1. Start reducing 1 medication at a time to see how much of these bipolar or depressive meds she needs 2. Home health with PT/OT/RN again 3. Start advance care planning conversations for the future. If she becomes even further bedbound and continues to deteriorate to the point that she can never leave her bed, does she still want hospitalizations? At what point would she consider stopping care? The patient has stated that she wants complete care even if she is in a vegetative state. Her power of deputy attorney general is noticing how much the patient's life is getting slowly worse, and is considering revisiting that issue with the patient. 4. Medications for congestive heart failure are ARB/SUMIT. Beta-rasta. Diuretic. She is already on Vasotec at home, propranolol at home. I will continue the Vasotec, change propranolol to Coreg, and add Lasix 20 mg a day. Her power of deputy attorney general was updated with these echo results. She will follow-up with the primary care provider in the outpatient setting 5. Maintain Full code status until notified otherwise. Code Status: Attempt Resuscitation Time spent on advance care plannin minutes
[2022-05-14 17:53] LABS: CALCIUM, IONIZED 1.1 mmol/L (1.15-1.33); VBG PH 7.447 (7.31-7.41)
[2022-05-14 17:57] LABS: MAGNESIUM 1.8 mg/dL (1.7-2.8); POTASSIUM 3.7 mmol/L (3.5-5.0)
[2022-05-14] MEDS: ONDANSETRON 4 MG/2 ML VIAL IVP PRN (20:52)
[2022-05-14] MEDS: ATORVASTATIN 40 MG TABLET PO SCH (21:24)
[2022-05-14] MEDS: AMOX/CLAV 500 MG/125 MG TABLET PO SCH (21:24)
[2022-05-15] MEDS: SODIUM CHLORIDE FLUSH 0.9% 10 ML SYRINGE IVP PRN (04:27)
[2022-05-15 05:14] LABS: BASOPHILS % (AUTO) 0.4 %; EOSINOPHILS # (AUTO) 0.2 10^3/uL (0.0-0.7); EOSINOPHILS % (AUTO) 2.7 %; HCT - HEMATOCRIT 26.4 % (37.0-47.0); HGB - HEMOGLOBIN 8.6 g/dL (12.0-16.0); LYMPHOCYTES # (AUTO) 1.7 10^3/uL (1.5-3.5); LYMPHOCYTES % (AUTO) 23.9 %; MEAN CORPUSCULAR HEMOGLOBIN 28.8 pg (27.0-31.0); MEAN CORPUSCULAR HGB CONC 32.6 g/dL (32.0-36.0); MEAN CORPUSCULAR VOLUME 88.3 fL (81.0-99.0); MEAN PLATELET VOLUME 11.1 fL (7.9-10.8); MONOCYTES # (AUTO) 0.4 10^3/uL (0.0-1.0); MONOCYTES % (AUTO) 6.3 %; NEUTROPHILS # (AUTO) 4.6 10^3/uL (1.5-6.6); PLT - PLATELET COUNT 299 10^3/uL (130-450); RED BLOOD COUNT 2.99 10^6/uL (4.20-5.40); RED CELL DISTRIBUTION WIDTH 18.7 % (12.0-15.0)
[2022-05-15 05:17] LABS: CALCIUM, IONIZED 1.13 mmol/L (1.15-1.33); VBG PH 7.423 (7.31-7.41)
[2022-05-15 05:26] LABS: CALCIUM 7.5 mg/dL (8.5-10.3); CREATININE 0.4 mg/dL (0.4-1.0); POTASSIUM 3.9 mmol/L (3.5-5.0)
[2022-05-15] MEDS: ethyl alcohoL 62% SWAB AMPULE NAS SCH ×2 (08:03→22:11)
[2022-05-15] MEDS: CHOLECALCIFEROL 5,000 UNIT CAPSULE PO SCH (08:03)
[2022-05-15] MEDS: ASPIRIN EC 81 MG TABLET PO SCH (08:03)
[2022-05-15] MEDS: AMOX/CLAV 500 MG/125 MG TABLET PO SCH ×2 (08:03→22:11)
[2022-05-15] MEDS: NYSTATIN CREAM 15 GM TUBE TOP SCH ×2 (08:03→22:12)
[2022-05-15] MEDS: LACTOBACILLUS RHAMNOSUS GG CAPSULE PO SCH (08:03)
[2022-05-15] MEDS: MULTIVITAMIN W/MINERALS TABLET PO SCH (08:03)
[2022-05-15] MEDS: SODIUM CHLORIDE FLUSH 0.9% 10 ML SYRINGE IVP SCH ×2 (08:03→11:54)
[2022-05-15] MEDS: HEPARIN 5,000 UNIT/ML VIAL SUBQ SCH ×2 (09:05→22:11)
[2022-05-15] MEDS: SODIUM CHLORIDE 0.9% 1,000 ML IV SCH (09:07)
[2022-05-15] MEDS: CALCIUM CARBONATE CHEW 500 MG TABLET PO SCH ×2 (11:54→22:11)
--- NOTE | 2022-05-15 13:01 | PROVIDER PROGRESS NOTE ---
Subjective - Prog Note Date Prog Note Date: 05/15/22 Prog Note Time: 13:00 - Subjective Pt reports feeling: Improved Subjective: Overall she states feeling better than yesterday, however, she states feeling "hungover". She has felt this was for a while and attributes this to her many psychotropic medications, equates it to not feeling like herself, especially in the mornings. Mood, affect, insight, and judgment are otherwise appropriate. Current Medications - Current Medications Current Medications: Active Medications Acetaminophen (Acetaminophen 325 Mg Tablet) 650 mg PO Q4HR PRN PRN Reason: Pain 1 to 4, or Fever Last Admin: 05/14/22 16:34 Dose: 650 mg Alcohol (Ethyl Alcohol 62% Swab Ampule) 1 amp ANG BID [facility] Last Admin: 05/15/22 08:03 Dose: 1 amp Amoxicillin/Clavulanate Potassium (Amox/Clav 500 Mg/125 Mg Tablet) 1 tab PO BID [facility] Last Admin: 05/15/22 08:03 Dose: 1 tab Aspirin (Aspirin Ec 81 Mg Tablet) 81 mg PO DAILY [facility] Last Admin: 05/15/22 08:03 Dose: 81 mg Atorvastatin Calcium (Atorvastatin 40 Mg Tablet) 40 mg PO QPM [facility] Last Admin: 05/14/22 21:24 Dose: 40 mg Calcium Carbonate/Glycine (Calcium Carbonate Chew 500 Mg Tablet) 500 mg PO BID [facility] Stop: 05/15/22 21:01 Last Admin: 05/15/22 11:54 Dose: 500 mg Cholecalciferol (Cholecalciferol 5,000 Unit Capsule) 5,000 unit PO DAILY [facility] Last Admin: 05/15/22 08:03 Dose: 5,000 unit Heparin Sodium (Porcine) (Heparin 5,000 Unit/Ml Vial) 5,000 unit SUBQ BID [facility] Last Admin: 05/15/22 09:05 Dose: 5,000 unit Acetaminophen (Acetaminophen) 1,000 mg in 100 mls @ 400 mls/hr IV Q6HR PRN PRN Reason: Pain or Fever > 38C (100.4F) Last Infusion: 05/11/22 20:40 Dose: Infused Lactobacillus Rhamnosus (Lactobacillus Rhamnosus Gg Capsule) 1 cap PO DAILY [facility] Last Admin: 05/15/22 08:03 Dose: 1 cap Multi-Ingredient Ointment (Zinc Oxide 20% Oint 30 Gm Tube) 1 applic TOP PRN PRN PRN Reason: Skin Care Last Admin: 05/14/22 11:55 Dose: 1 applic Multivitamins/Minerals (Multivitamin W/Minerals Tablet) 1 tab PO DAILYWM [facility] Last Admin: 05/15/22 08:03 Dose: 1 tab Nystatin (Nystatin Cream 15 Gm Tube) 1 applic TOP BID [facility] Last Admin: 05/15/22 08:03 Dose: 1 applic Ondansetron HCl (Ondansetron 4 Mg/2 Ml Vial) 4 mg IVP Q6HR PRN PRN Reason: Nausea / Vomiting Last Admin: 05/14/22 20:52 Dose: 4 mg Prochlorperazine Edisylate (Prochlorperazine 10 Mg/2 Ml Vial) 10 mg IVP Q6HR PRN PRN Reason: Nausea / Vomiting Last Admin: 05/12/22 05:56 Dose: 10 mg Sodium Chloride (Sodium Chloride Flush 0.9% 10 Ml Syringe) 10 ml IVP 0 100,0900,1700 [facility] Last Admin: 05/15/22 11:54 Dose: 10 ml Sodium Chloride (Sodium Chloride Flush 0.9% 10 Ml Syringe) 10 ml IVP PRN PRN PRN Reason: NEEDED PER PROVIDER ORDERS Last Admin: 05/14/22 20:52 Dose: 10 ml Sodium Chloride (Sodium Chloride Flush 0.9% 10 Ml Syringe) 20 ml IVP PRN PRN PRN Reason: After Blood Draw Last Admin: 05/15/22 04:27 Dose: 20 ml Propranolol [Inderal] 20 mg PO TID 04/27/13 Enalapril [Vasotec] 5 mg ORAL DAILY 05/14/14 Citalopram Hydrobromide [Celexa] 10 mg PO DAILY 08/22/16 Oxybutynin Chloride [Ditropan Xl] 10 mg PO DAILY 01/23/17 Quetiapine Fumarate [Seroquel Xr] 300 mg PO DAILY PM 01/23/17 ARIPiprazole [Abilify] 20 mg PO DAILY 08/28/17 hydrOXYzine pamoate [Hydroxyzine Pamoate] 25 mg PO DAILY PRN 07/09/18 Dexlansoprazole [Dexilant] 30 mg PO DAILY 02/16/21 Meloxicam [Mobic] 15 mg PO DAILY 02/16/21 buPROPion [Wellbutrin Xl] 150 mg PO DAILY 02/16/21 Zolpidem Tartrate [Ambien] 10 mg PO HS PRN 05/10/22 Objective - Vital Signs/Intake & Output Reviewed Vital Signs: Yes Vital Signs: Vital Signs x48h Temp Pulse Resp BP Pulse Ox 05/15/22 12:41 96 19 121/102 H 96 05/15/22 07:45 36.6 C 95 15 113/97 H 94 Intake & Output: Intake & Output 05/12/22 05/13/22 05/14/22 05/15/22 23:59 23:59 23:59 23:59 Intake Total 4462.625 4616.469 1880 780 Output Total 1010 1225 900 925 Balance 3452.625 3391.469 980 -145 - Objective General Appearance: positive: No acute distress Eyes Bilateral: positive: Normal inspection, PERRL, EOMI ENT: positive: ENT inspection nml, No signs of dehydration Neck: positive: Nml inspection, Thyroid nml, No JVD, Trachea midline. negative: Stiff neck Respiratory: positive: Chest non-tender, No respiratory distress, Breath sounds nml Cardiovascular: positive: Regular rate & rhythm Abdomen: positive: Non-tender, Nml bowel sounds Back: positive: Nml inspection Skin: positive: Color nml, Warm, Dry Extremities: positive: Non-tender, Other (Upper limbs have slight contracture - chronic from CP. Stage 3 decubitus ulcer on right calcaneal area.) Neurologic/Psychiatric: positive: Oriented x3, Depressed mood/affect (Could be a consequence of the many psychotropic medications the patient is currently prescribed.) - Lab Results Fish Bones: 05/15/22 04:36 05/15/22 04:36 Other Labs: Lab Results x24hrs 05/15/22 05/15/22 05/15/22 Range/Units 04:36 04:36 04:36 WBC 7.0 (4.8-10.8) x10^3/uL RBC 2.99 L (4.20-5.40) 10^6/uL Hgb 8.6 L (12.0-16.0) g/dL Hct 26.4 L (37.0-47.0) % MCV 88.3 (81.0-99.0) fL MCH 28.8 (27.0-31.0) pg MCHC 32.6 (32.0-36.0) g/dL RDW 18.7 H (12.0-15.0) % Plt Count 299 (130-450) 10^3/uL MPV 11.1 H (7.9-10.8) fL Neut # (Auto) 4.6 (1.5-6.6) 10^3/uL Lymph # (Auto) 1.7 (1.5-3.5) 10^3/uL Bos[place] # (Auto) 0.4 (0.0-1.0) 10^3/uL Eos # (Auto) 0.2 (0.0-0.7) 10^3/uL Baso # (Auto) 0.0 (0.0-0.1) 10^3/uL Absolute Nucleated RBC 0.00 x10^3/uL Nucleated RBC % 0.0 /100WBC VBG pH 7.423 H (7.31-7.41) Ionized Calcium 1.13 L (1.15-1.33) mmol/L Sodium 131 L (135-145) mmol/L Potassium 3.9 (3.5-5.0) mmol/L Chloride 103 (101-111) mmol/L Carbon Dioxide 24 (21-32) mmol/L Anion Gap 4.0 L (6-13) BUN 8 (6-20) mg/dL Creatinine 0.4 (0.4-1.0) mg/dL Estimated GFR (MDRD) 167 (>89) Glucose 97 (70-100) mg/dL Calcium 7.5 L (8.5-10.3) mg/dL Magnesium (1.7-2.8) mg/dL 05/14/22 05/14/22 Range/Units 17:30 17:30 WBC (4.8-10.8) x10^3/uL RBC (4.20-5.40) 10^6/uL Hgb (12.0-16.0) g/dL Hct (37.0-47.0) % MCV (81.0-99.0) fL MCH (27.0-31.0) pg MCHC (32.0-36.0) g/dL RDW (12.0-15.0) % Plt Count (130-450) 10^3/uL MPV (7.9-10.8) fL Neut # (Auto) (1.5-6.6) 10^3/uL Lymph # (Auto) (1.5-3.5) 10^3/uL Bosque # (Auto) (0.0-1.0) 10^3/uL Eos # (Auto) (0.0-0.7) 10^3/uL Baso # (Auto) (0.0-0.1) 10^3/uL Absolute Nucleated RBC x10^3/uL Nucleated RBC % /100WBC VBG pH 7.447 H (7.31-7.41) Ionized Calcium 1.10 L (1.15-1.33) mmol/L Sodium (135-145) mmol/L Potassium 3.7 (3.5-5.0) mmol/L Chloride (101-111) mmol/L Carbon Dioxide (21-32) mmol/L Anion Gap (6-13) BUN (6-20) mg/dL Creatinine (0.4-1.0) mg/dL Estimated GFR (MDRD) (>89) Glucose (70-100) mg/dL Calcium (8.5-10.3) mg/dL Magnesium 1.8 (1.7-2.8) mg/dL ABX Reporting Has patient been on IV antibiotics over the past 48 hours?: No Sepsis Event Note (H) - Evaluation Current Stage of Sepsis: Resolved Possible source of Sepsis: positive: Implantable device, Genitourinary Assessment/Plan - Problem List (1) Pseudomonas urinary tract infection Impression: Continue PO Augmentin therapy. WBC is continuing on a downward trend at 7.0 tpday (05/15). (2) Hyponatremia Impression: Her sodium remains low at 131 mmol/L, however, it is in a downward trend and she is asymptomatic. Review of her previous lab results show mild chronic hyponatremia, this could be due to her home prescription of escitalopram or bupropion. Had a conversation with her about speaking to her primary care doctor about psychotropic medication management, and possibly reducing the number of those medications she has been prescribed. She is receptive to this, stated that she has discussed this with her primary care provider before, and will do so again after her discharge. (3) Abnormal EKG Impression: Her echocardiogram results were as follows, the left ventricle function is mild- moderately impaired, the calculated EF is 41%, diastolic function is indeterminate, regional wall motion abnormalities were seen, the apical 2/3 of the left ventricle was hypokinetic, and the basal wall seggents had the best contractility. The interatrial septum bows toward the right atrium, this is consistent with elevated atrial pressure. Will continue aspirin, statin, enalapril, and lasix. (4) Neurogenic bladder Impression: Chronic suprapubic indwelling catheter to remain in place. (5) Pressure injury of right heel, stage 3 Impression: [place] [facility] [place]. (6) Pressure injury of sacral region, stage 3 Impression: [place] up [place] [facility] [place] an [place]. (7) Depression Impression: Please see advanced care planning communication dictated in separate note. (9) Anemia Impression: She appears to have anemia of chronic disease, her EMR shows her hemoglobin is normally about 10. Today 05/15 it is 8.6, this is up from 8.3 on 05/14. Will continue CBC daily. If there is a drop in HgB<7, a PRBC will be ordered. (10) GERD (gastroesophageal reflux disease) Impression: Have pt resume previously prescribed dexlasoprazole once discharged home.
[2022-05-15] MEDS: PANTOPRAZOLE 40 MG TABLET PO SCH (15:49)
[2022-05-15] MEDS: ATORVASTATIN 40 MG TABLET PO SCH (22:11)
[2022-05-15] MEDS: ACETAMINOPHEN 325 MG TABLET PO PRN (22:41)
[2022-05-16] MEDS: SODIUM CHLORIDE FLUSH 0.9% 10 ML SYRINGE IVP SCH ×2 (01:00→11:54)
[2022-05-16] MEDS: ZINC OXIDE 20% OINT 30 GM TUBE TOP PRN (05:12)
[2022-05-16] MEDS: PANTOPRAZOLE 40 MG TABLET PO SCH (05:13)
[2022-05-16 05:22] LABS: BASOPHILS # (AUTO) 0.1 10^3/uL (0.0-0.1); BASOPHILS % (AUTO) 0.6 %; EOSINOPHILS # (AUTO) 0.2 10^3/uL (0.0-0.7); HCT - HEMATOCRIT 26.9 % (37.0-47.0); HGB - HEMOGLOBIN 8.8 g/dL (12.0-16.0); LYMPHOCYTES # (AUTO) 1.6 10^3/uL (1.5-3.5); LYMPHOCYTES % (AUTO) 19.2 %; MEAN CORPUSCULAR HGB CONC 32.7 g/dL (32.0-36.0); MEAN CORPUSCULAR VOLUME 88.8 fL (81.0-99.0); MEAN PLATELET VOLUME 10.4 fL (7.9-10.8); MONOCYTES # (AUTO) 0.6 10^3/uL (0.0-1.0); MONOCYTES % (AUTO) 6.7 %; NEUTROPHILS % (AUTO) 70.2 %; PLT - PLATELET COUNT 386 10^3/uL (130-450); RED BLOOD COUNT 3.03 10^6/uL (4.20-5.40); RED CELL DISTRIBUTION WIDTH 18.4 % (12.0-15.0); WHITE BLOOD COUNT 8.5 x10^3/uL (4.8-10.8)
[2022-05-16 05:23] LABS: CALCIUM, IONIZED 1.15 mmol/L (1.15-1.33); VBG PH 7.477 (7.31-7.41)
[2022-05-16] MEDS: ACETAMINOPHEN 325 MG TABLET PO PRN (05:31)
[2022-05-16 06:04] LABS: CALCIUM 7.9 mg/dL (8.5-10.3); CREATININE 0.5 mg/dL (0.4-1.0); POTASSIUM 3.8 mmol/L (3.5-5.0)
--- NOTE | 2022-05-16 08:36 | WOUND CARE PROGRESS NOTE ---
Assessment/Plan - Problem List (1) Pressure injury of right heel, stage 3 Assessment/Plan: Right heel. Caused by pressure due to new shoe 6 months ago. No s/s infection. Healing stage 3 PI. Plan of care: Wound hygiene with antimicrobial solution. Dressing with marathon barrier gel to periwound, gentamicin ointment to wound bed followed by Ag calcium alginate, plain foam, and a reverse football offloading dressing. Patient to keep dressing dry and intact. [facility] to change dressing in one week. Orders sent. Patient will follow up here in the wound care center in 2 weeks. (2) Pressure injury of sacral region, stage 3 Assessment/Plan: Wound partial thickness last week. Inpatient nursing staff has been applying zinc bid. Wound not visualized today. Patient denies pain. Plan of care: Continue to apply barrier cream daily. Encouraged frequent repositioning. - Results Lab Results: Laboratory Results Sodium 132 mmol/L (135-145) L 05/16/22 05:00 Potassium 3.8 mmol/L (3.5-5.0) 05/16/22 05:00 Chloride 100 mmol/L (101-111) L 05/16/22 05:00 Carbon Dioxide 25 mmol/L (21-32) 05/16/22 05:00 Anion Gap 7.0 (6-13) 05/16/22 05:00 BUN 7 mg/dL (6-20) 05/16/22 05:00 Creatinine 0.5 mg/dL (0.4-1.0) 05/16/22 05:00 Glucose 117 mg/dL (70-100) H 05/16/22 05:00 Calcium 7.9 mg/dL (8.5-10.3) L 05/16/22 05:00 Total Bilirubin 0.6 mg/dL (0.2-1.0) 05/09/22 12:10 AST 18 IU/L (10-42) 05/09/22 12:10 ALT 20 IU/L (10-60) 05/09/22 12:10 Alkaline Phosphatase 75 IU/L (42-121) 05/09/22 12:10 Total Protein 6.4 g/dL (6.7-8.2) L 05/09/22 12:10 Albumin 2.1 g/dL (3.2-5.5) L 05/09/22 12:10 Globulin 4.3 g/dL (2.1-4.2) H 05/09/22 12:10 Albumin/Globulin Ratio 0.5 (1.0-2.2) L 05/09/22 12:10 05/10/22 10:33 Blood - Central Line Blood Culture - Final NO GROWTH AFTER 5 DAYS 05/10/22 08:35 Blood Blood Culture - Final NO GROWTH AFTER 5 DAYS 05/09/22 12:52 Blood - Central Line Blood Culture - Final NO GROWTH AFTER 5 DAYS 05/09/22 12:10 Blood - Central Line Blood Culture - Final NO GROWTH AFTER 5 DAYS 05/09/22 12:30 Urine,Catheterized Urine Culture - Final Pseudomonas Aeruginosa - Home Meds/Allergies Allergies phenazopyridine [From Pyridium] Allergy (Verified 05/09/22 11:45) Unknown paroxetine HCl * [From Paxil] Adverse Reaction (Intermediate, Verified 05/09/22 11:45) Emesis codeine [Codeine] Adverse Reaction (Verified 05/09/22 11:45) Pass Out Home Medications Zolpidem Tartrate [Ambien] 10 mg PO HS PRN 05/10/22 [History Confirmed 05/10/22] - Additional Planning Condition/Complexity: Stable Plan Discussed with:: Patient Objective General: Alert, Oriented x3, Cooperative, No acute distress - Wound Assessment Wound #1: Right heel. 1.6 x 1.5 x 0.3 The wound is a healing stage 3 pressure injury. The wound bed is 50/50 granular/slough. The wound edges are attached. No undermining, no tunneling. The periwound macerated. There is mild to moderate drainage. No odor. Mild edema. The patient is reporting tenderness to right foot. Capillary refill wnl, decreased sensation. No signs infection. Right: Pulses DP/PT palpable Wound #2: Left sacrum superior: Not assessed today Wound #3: Left sacrum inferior: Not assessed today Wound #4: gluteal cleft: Not assessed today Patient denies pain to the sacral region Subjective - Subjective Patient Reports: Feeling Better, Other (Inpatient room 5. Due to be discharged today with PT and home health. Patient reporting tenderness to right foot. Denies pain to sacral region.) Meds/Allgy - Home Medications Home Medications: Ambulatory Orders Medication Instructions Recorded Confirmed Propranolol [Inderal] 20 mg PO TID 04/27/13 05/10/22 Enalapril [Vasotec] 5 mg ORAL DAILY 05/14/14 05/10/22 Citalopram Hydrobromide [Celexa] 10 mg PO DAILY 08/22/16 05/10/22 Oxybutynin Chloride [Ditropan Xl] 10 mg PO DAILY 01/23/17 05/10/22 Quetiapine Fumarate [Seroquel Xr] 300 mg PO DAILY PM 01/23/17 05/10/22 ARIPiprazole [Abilify] 20 mg PO DAILY 08/28/17 05/10/22 hydrOXYzine pamoate [Hydroxyzine 25 mg PO DAILY PRN 07/09/18 05/10/22 Pamoate] Dexlansoprazole [Dexilant] 30 mg PO DAILY 02/16/21 05/10/22 Meloxicam [Mobic] 15 mg PO DAILY 02/16/21 05/10/22 buPROPion [Wellbutrin Xl] 150 mg PO DAILY 02/16/21 05/10/22 Multivitamin W/Minerals [Theragran 1 tab PO QDLUNCH #30 tablet 03/01/21 05/10/22 M] Meclizine [Antivert] 25 mg PO Q6H PRN #14 tablet 02/27/22 05/10/22 Ondansetron Odt [Zofran Odt] 4 mg TL Q6H PRN #10 tablet 02/27/22 05/10/22 Zolpidem Tartrate [Ambien] 10 mg PO HS PRN 05/10/22 05/10/22 - Allergies Allergies/Adverse Reactions: Allergies Allergy/AdvReac Type Severity Reaction Status Date / Time phenazopyridine Allergy Unknown Verified 05/09/22 11:45 [From Pyridium] paroxetine HCl * [From Paxil] AdvReac Intermediate Emesis Verified 05/09/22 11:45 codeine [Codeine] AdvReac Pass Out Verified 05/09/22 11:45
--- NOTE | 2022-05-16 09:13 | Discharge Plan ---
Discharge Plan Problem Reviewed?: Yes Disposition: Home, Self Care Condition: Fair Diet: Regular Activity Restrictions: Activity as Tolerated Shower Restrictions: No Driving Restrictions: Yes (no driving) Assistance Devices: Wheelchair Health Concerns: You have a long complicated medical history due to cerebral palsy. This is resulted in you basically being bedbound or wheelchair-bound. You have a chronic suprapubic catheter due to neurogenic bladder and that has resulted in multiple drug-resistant urinary tract infections. You also have kidney stones. You had lithotripsy or kidney stone breakdown 2 days before admission. You are being seen in the MAC clinic on the day of admission and we found your blood pressure to be severely and dangerously low. We sent you to the emergency room and found you to have sepsis, which is a severe infection, due to another urinary tract infection from Pseudomonas. You have now completed IV antibiotics and oral antibiotics for a drug-resistant Pseudomonas. He was seen by the wound clinic today. You cannot be discharged to home. Plan of Treatment: 1. Please see your primary care provider in follow-up in the next 2 to 3 weeks. 2. One of the things we noticed about you while you are here is excessive sleepiness. After reviewing your medication list, and speaking to your power of [place] attorney, we think that if some of your sleepiness is due to the amount of sedation you are receiving from your psychiatric medications. We have been informed that you have lost your provider at [facility]. The only the provider renewing your medications is Dr. Wiggins. Please have Dr. Wiggins review your list. Or see a new [facility] mental health provider. Medications that I think can be reduced for you would be Wellbutrin or citalopram to start out with. You really would not want to make sudden changes in all of your medications. The approach would be to start with 1 medication and change that slowly so as to avoid a mental health crisis for you. 3. Please continue to keep on seeing home health. They are the agency that comes to make sure your suprapubic catheter is working and changes it on a regular basis. 4. While you were here, we found sure vitamin D levels to be low. We have noticed that you have also lost a bit of weight. Please take a multivitamin a day and also take a vitamin D supplement of 800 international units daily. Care Goals: At this time your care goals are to remain at home, and continue to receive 11 hours a day of care. I am asking you and your power of united states attorney to sit down and start tentative, preliminary plans for the time you may need 24/7 care. I would ask you to plan for what that would look like. Assessment: Patient understands care goals. Is alert, oriented, lucid speech. Able to make her own decisions at this time and is advocated for by her power of [place] attorney, Meli/Deedee No Smoking: If you smoke, Please STOP! Call for help. Follow-up with: Bennie Hill MD [Primary Care Provider] -
[2022-05-16] MEDS: MULTIVITAMIN W/MINERALS TABLET PO SCH (09:32)
[2022-05-16] MEDS: LACTOBACILLUS RHAMNOSUS GG CAPSULE PO SCH (09:32)
[2022-05-16] MEDS: ASPIRIN EC 81 MG TABLET PO SCH (09:32)
[2022-05-16] MEDS: AMOX/CLAV 500 MG/125 MG TABLET PO SCH (09:32)
[2022-05-16] MEDS: HEPARIN 5,000 UNIT/ML VIAL SUBQ SCH (09:33)
[2022-05-16] MEDS: CHOLECALCIFEROL 5,000 UNIT CAPSULE PO SCH (09:33)
[2022-05-16] MEDS: ethyl alcohoL 62% SWAB AMPULE NAS SCH (09:34)
--- NOTE | 2022-05-16 10:16 | DISCHARGE SUMMARY ---
Discharge Summary Admit Date: 05/09/22 Discharge Date: 05/16/22 Discharging Provider: Kathleen Pérez MD Primary Care Provider: Bennie Hill Code Status: Attempt Resuscitation Condition at Discharge: Fair Discharge Disposition: 01 Home, Self Care - DIAGNOSES Discharge Diagnoses with Status of Each Condition: 1. Septic shock 2. Multidrug-resistant Pseudomonas UTI/complicated urinary tract infection 3. Hyponatremia 4. Abnormal EKG 5. Demand ischemia with elevated troponins 6. Cerebral palsy 8. Neurogenic bladder with chronic indwelling Epps catheter 9. Sacral decubitus ulcer, bilateral heel ulcers, present on admission, stage III 10. Bipolar disorder 11. Medication side effect (sedation due to psychiatric medication) 12. Hypertension 13. Anemia of chronic disease 14. Peripheral neuropathy 14. Acute kidney injury, mild - HPI History of Present Illness: This is a 52-year-old WF with history of hypertension, GERD, depression, PTSD, cerebral palsy with neurogenic bladder, chronic indwelling suprapubic bladder catheter, and has had frequent UTIs in the past. She is bedbound and has contra ctures, she has a wheelchair and gets a visiting nurse and also was on many chronic oral antibiotics. In February 2021, she was admitted here for treating sacral decubiti and sacral cellulitis. 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 Today she presented to [facility] [place] wound clinic and [employer] Leydi found to be hypotensive, BP 50/30 and she was somnolent and sent pt to the emergency room. In the ED her work-up shows that she has urosepsis with an abnormal urinalysis, White blood count 32, lactic acid normal, newly elevated creatinine of 1.3 (usual is 0.9) and BP 60/40. She had abdominal CT that showed no obstruction. Urology was contacted because she had just had lithotripsy 2 days ago with a stent in place. Urology told our ED provider that no other procedure is needed currently. She was started on Levophed, got 3 L of crystalloids and has been started on iv meropenem after blood cultures were done. Of note her EKG shows new deep T wave inversions in V2 and V3, and troponins are still pending. The ED provider has reached out to the Hospitalist team to admit this patient for septic shock from urinary source related to a chronic suprapubic catheter which is required for neurogenic bladder in a patient with cerebral palsy, and also possibly caused by the recent urinary tract manipulation (lithotripsy). Patient has an Advance Care Plan in the EMR, signed February 2022 that indicates she wants full treatment and full CODE STATUS unless she is in a vegetative state. - Past Medical History Cardiovascular: reports: Hypertension Respiratory: reports: Asthma, Other Neuro: reports: Cerebral palsy Endocrine/Autoimmune: reports: Other GI: reports: GERD SAFETY AND SECURITY OFFICER: reports: None : reports: Indwelling catheter HEENT: reports: Chronic vision loss Psych: reports: Depression, Anxiety, Bipolar disorder, Post traumatic stress disorder Musculoskeletal: reports: Osteoarthritis, Other Derm: reports: Psoriasis MRSA Hx?: Yes - Past Surgical History General: reports: Hiatal hernia repair, EGD Ortho: reports: Other /SAFETY AND SECURITY OFFICER: reports: section, Hysterectomy - CONSULTS | PROCEDURES Procedures: 1. Chest x-ray with right central venous catheter support line as above. She is markedly rotated with overlapping osseous and soft tissue structures of screening evaluation of right upper lobe. Otherwise no infiltrate seen. No pneumothorax. 2. Abdomen/pelvis CT. Interval right ureterovesicular stent placement. Previous right ureteral calculus no longer visualized. No obstruction of kidney s. Moderate colonic stool without obstruction. No free fluid or air seen in the abdomen. 3. Echocardiogram done for abnormal EKG and elevated troponin. Ejection fraction is 40 to 45%. Apical segments and apex are akinetic suggesting stress cardiomyopathy. Right ventricle normal size and function. No significant valvular heart disease. There is no previous echo to compare to in this report. She may need a repeat echocardiogram in the next 6 months due to the fact this may have been stress-induced cardiomyopathy from septic shock. 5. Blood culture May 09 negative for growth. 6. Blood culture from May 10 negative for growth. 7. Urine culture May 09 with Pseudomonas aeruginosa that is resistant to Ancef, Cipro, Levaquin but sensitive to gentamicin, imipenem, Zosyn. - HOSPITAL COURSE Hospital Course: This patient is well-known to the emergency room due to problems with her Epps. She unfortunately has cerebral palsy and this is resulted in gradually decreasing mobility over the last few years. This is in spite of multiple orthopedic tendon surgeries in the past. She has a neurogenic bladder with a chronic indwelling Epps catheter. She is history of multidrug-resistant UTIs. She presented with another UTI and septic shock in the ER. She required a central line, pressors, crystalloid resuscitation. She was started on antibiotics which was de-escalated and changed once the identity came back as Pseudomonas. Once she was stable from a white cell count perspective and blood pressure perspective she was transitioned to oral antibiotics and is completed 8 days of antibiotic therapy for UTI. Blood cultures have been negative. During her stay her chronic decubiti are noted on admission. Usually we document decubiti with pictures but her camera is broken. She has stage III decubiti of sacrum, back of heels. This is chronic for her. She is seen at the wound clinic on a regular basis and was seen by wound clinic on the day of discharge before she went home. Please refer to those notes. The wounds are not infected at this time. She is very sedated. Very sleepy, and disengaged at times during conversation. Sometimes with psychomotor slowing. In speaking to her and her power of attorn adriana, they both feel that this is gotten worse over the last year or 2. The patient used to be very "snappy, sarcastic, joking". But she is gotten increasingly more "sedated". They both feel that her medication used for her psychiatric disease is the cause. Unfortunately her primary care provider's, Indira, has left [facility] and she does not have a new provider. They are under the impression that Dr. Wiggins is refilling her medications. I would suggest that her medications be reviewed and possibly Wellbutrin or citalopram reduced if not stopped slowly. This would leave her then with Seroquel and Abilify. I would also stop Ambien for now. I have encouraged her to reestablish himself with a primary psychiatry provider. Discharge exam today is 36.710. Heart rate 104. Blood pressure 108/83. Respirations 20. 97% on room air. She has been intermittently tachycardic while here. We had held her propranolol because of the septic shock. We are resuming that at discharge. Neck is supple. Lungs have slow, unlabored respiration but are clear. No increased respiratory effort. Regular rate and rhythm that is occasionally tachycardic off her propranolol. Abdomen has hypoactive bowel sounds, nontender, suprapubic catheter in place. There is some serous drainage around the insertion site but there is no redness, fluctuance. It is draining clear urine. Overall appearance of this woman is that of slight torticollis with head chronically turn to the right. Partially edentulous with appearance of lipsmacking. Slightly spastic upper extremity limb movements. Legs are externally splayed, with feet constantly laying on lateral malleolus side. Flaccid. She is alert, oriented, normal speech with slowed thought process. Greater than 30 minutes was spent coordinating discharge - ALLERGIES Allergies/Adverse Reactions: Allergies Allergy/AdvReac Type Severity Reaction Status Date / Time phenazopyridine Allergy Unknown Verified 05/09/22 11:45 [From Pyridium] paroxetine HCl * [From Paxil] AdvReac Intermediate Emesis Verified 05/09/22 11:45 codeine [Codeine] AdvReac Pass Out Verified 05/09/22 11:45 - MEDICATIONS Home Medications: Ambulatory Orders Medication Instructions Recorded Confirmed Propranolol [Inderal] 20 mg PO TID 04/27/13 05/10/22 Enalapril [Vasotec] 5 mg ORAL DAILY 05/14/14 05/10/22 Citalopram Hydrobromide [Celexa] 10 mg PO DAILY 08/22/16 05/10/22 Oxybutynin Chloride [Ditropan Xl] 10 mg PO DAILY 01/23/17 05/10/22 Quetiapine Fumarate [Seroquel Xr] 300 mg PO DAILY PM 01/23/17 05/10/22 ARIPiprazole [Abilify] 20 mg PO DAILY 08/28/17 05/10/22 hydrOXYzine pamoate [Hydroxyzine 25 mg PO DAILY PRN 07/09/18 05/10/22 Pamoate] Dexlansoprazole [Dexilant] 30 mg PO DAILY 02/16/21 05/10/22 Meloxicam [Mobic] 15 mg PO DAILY 02/16/21 05/10/22 buPROPion [Wellbutrin Xl] 150 mg PO DAILY 02/16/21 05/10/22 Multivitamin W/Minerals [Theragran 1 tab PO QDLUNCH #30 tablet 03/01/21 05/10/22 M] Meclizine [Antivert] 25 mg PO Q6H PRN #14 tablet 02/27/22 05/10/22 Ondansetron Odt [Zofran Odt] 4 mg TL Q6H PRN #10 tablet 02/27/22 05/10/22 Zolpidem Tartrate [Ambien] 10 mg PO HS PRN 05/10/22 05/10/22 - LABS Result Diagrams: 05/16/22 05:00 05/16/22 05:00 - SEPSIS Current Stage of Sepsis: Resolved Possible source of Sepsis: Implantable device, Genitourinary Sepsis Criteria: Recorded Heart Rate greater than 90 bpm, WBC count greater than 12,000 or less than 4000, TESTBOARD OPERATOR: altered consciousness (unrelated to primary neuro pathology), SBP less than 90 mmHg
[2022-05-16] MEDS: ONDANSETRON 4 MG/2 ML VIAL IVP PRN (10:49)
[2022-05-16] MEDS: NYSTATIN CREAM 15 GM TUBE TOP SCH (11:54)
[2022-05-16 12:27] VITALS: BP 122/86
== END 2022-05-16 13:47 | disposition home or self-care (01) | DRG 862 ==
LOC: ED 11:10 → ICU 17:33 → MS2 05-15 18:18
PROVIDERS: ADMIT Internal Medicine; ATTEND Specialist
DX: A41.9 Sepsis, unspecified organism (principal); T81.44XA Sepsis following a procedure, initial encounter; A41.52 Sepsis due to Pseudomonas; L89.153 Pressure ulcer of sacral region, stage 3; E86.1 Hypovolemia; L89.623 Pressure ulcer of left heel, stage 3; L89.613 Pressure ulcer of right heel, stage 3; R65.21 Severe sepsis with septic shock; Z20.822 Contact with and (suspected) exposure to COVID-19; N99.511 Cystostomy infection; Z16.24 Resistance to multiple antibiotics; E87.1 Hypo-osmolality and hyponatremia; I24.8 Other forms of acute ischemic heart disease; N17.9 Acute kidney failure, unspecified; N39.0 Urinary tract infection, site not specified; B96.5 Pseudomonas (aeruginosa) (mallei) (pseudomallei) as the cause of diseases classified elsewhere; R94.31 Abnormal electrocardiogram [ECG] [EKG]; G80.9 Cerebral palsy, unspecified; N31.9 Neuromuscular dysfunction of bladder, unspecified; F31.9 Bipolar disorder, unspecified; R40.0 Somnolence; T43.505A Adverse effect of unspecified antipsychotics and neuroleptics, initial encounter; I10 Essential (primary) hypertension; D63.8 Anemia in other chronic diseases classified elsewhere; G62.9 Polyneuropathy, unspecified; K21.9 Gastro-esophageal reflux disease without esophagitis; F43.10 Post-traumatic stress disorder, unspecified; Y83.3 Surgical operation with formation of external stoma as the cause of abnormal reaction of the patient, or of later complication, without mention of misadventure at the time of the procedure; J45.909 Unspecified asthma, uncomplicated; F41.9 Anxiety disorder, unspecified; H54.7 Unspecified visual loss; R13.10 Dysphagia, unspecified; R11.0 Nausea; Z74.01 Bed confinement status
CPT/HCPCS: 36415; 36556; 74176; 80048; 80053; 81001; 82306; 82330; 82728; 83540; 83605; 83735; 84100; 84132; 84443; 84466; 84484; 85025; 87040; 87077; 87086; 87150; 87181; 87633; 93005; 93306; 96365; 96366; 96368; 99291; A9270; J0131; J2185; J7040; J7120; 99232

== ENCOUNTER 2022-05-29 10:20 | Outpatient (CLI) | payer MEDICARE | END 2022-05-29 10:21 | disposition EMS.NT | LOC: EMS 10:20 | DX: I10 Essential (primary) hypertension (principal) ==

== ENCOUNTER 2022-06-10 13:49 | Outpatient (CLI) | payer MEDICARE ==
[2022-06-10 14:15] LABS: ABSOLUTE RETICS # AUTO 0.062 10^6/uL (0.020-0.110); BASOPHILS # (AUTO) 0.1 10^3/uL (0.0-0.1); BASOPHILS % (AUTO) 0.8 %; EOSINOPHILS # (AUTO) 0.4 10^3/uL (0.0-0.7); EOSINOPHILS % (AUTO) 5.7 %; HCT - HEMATOCRIT 38.2 % (37.0-47.0); LYMPHOCYTES # (AUTO) 1.5 10^3/uL (1.5-3.5); LYMPHOCYTES % (AUTO) 22.4 %; MEAN CORPUSCULAR HEMOGLOBIN 31.2 pg (27.0-31.0); MEAN CORPUSCULAR HGB CONC 31.4 g/dL (32.0-36.0); MEAN CORPUSCULAR VOLUME 99.2 fL (81.0-99.0); MEAN PLATELET VOLUME 9.8 fL (7.9-10.8); MONOCYTES # (AUTO) 0.7 10^3/uL (0.0-1.0); MONOCYTES % (AUTO) 10.9 %; NEUTROPHILS % (AUTO) 59.9 %; PLT - PLATELET COUNT 288 10^3/uL (130-450); RED BLOOD COUNT 3.85 10^6/uL (4.20-5.40); RED CELL DISTRIBUTION WIDTH 17.2 % (12.0-15.0); WHITE BLOOD COUNT 6.6 x10^3/uL (4.8-10.8)
[2022-06-10 14:39] LABS: ALBUMIN 2.4 g/dL (3.2-5.5); ALBUMIN/GLOBULIN RATIO 0.6 (1.0-2.2); BILIRUBIN,TOTAL 0.4 mg/dL (0.2-1.0); CALCIUM 8.8 mg/dL (8.5-10.3); CREATININE 0.5 mg/dL (0.4-1.0); POTASSIUM 4.3 mmol/L (3.5-5.0); TOTAL PROTEIN 6.5 g/dL (6.7-8.2)
[2022-06-10 14:45] LABS: THYROID STIMULATING HORMONE 0.74 uIU/mL (0.34-5.60)
[2022-06-10 14:53] LABS: FERRITIN 53.4 ng/mL (11.0-306.8)
[2022-06-10 15:59] LABS: FOLATE > 49.60 ng/mL (5.90 - >24.8)
[2022-06-10 22:02] LABS: ESTIMATED AVERAGE GLUCOSE 80 mg/dL (70-100); HEMOGLOBIN A1c% 4.4 % (4.27-6.07)
== END 2022-06-10 13:50 | disposition home or self-care (01) ==
LOC: LAB 13:49
PROVIDERS: ATTEND Family Medicine
DX: I10 Essential (primary) hypertension (principal); N13.30 Unspecified hydronephrosis; N20.0 Calculus of kidney; N31.9 Neuromuscular dysfunction of bladder, unspecified; Z93.59 Other cystostomy status; R73.9 Hyperglycemia, unspecified; G80.8 Other cerebral palsy; D50.9 Iron deficiency anemia, unspecified
CPT/HCPCS: 36415; 80053; 82607; 82728; 82746; 83036; 83540; 84443; 84466; 85025; 85045

== ENCOUNTER 2022-06-11 20:00 | Outpatient (CLI) | payer MEDICARE, MEDICAID ==
[2022-06-12 18:30] LABS: FECAL OCCULT BLOOD (FIT) POSITIVE (NEGATIVE)
== END 2022-06-11 23:59 | disposition home or self-care (01) ==
LOC: LAB.N 20:00
PROVIDERS: ATTEND Family Medicine
DX: D50.9 Iron deficiency anemia, unspecified (principal)
CPT/HCPCS: 82274

== ENCOUNTER 2022-07-17 09:37 | Outpatient (CLI) | payer MEDICARE | END 2022-07-17 09:38 | disposition home or self-care (01) | LOC: NS 09:37 | PROVIDERS: ATTEND Family Medicine | DX: Z71.3 Dietary counseling and surveillance (principal); N20.0 Calculus of kidney; N31.9 Neuromuscular dysfunction of bladder, unspecified | CPT/HCPCS: 97802 ==

== ENCOUNTER 2022-08-25 09:54 | Outpatient (CLI) | payer MEDICARE, MEDICAID ==
[2022-08-25 10:32] LABS: ALBUMIN 3.5 g/dL (3.2-5.5); ALBUMIN/GLOBULIN RATIO 0.9 (1.0-2.2); ALKALINE PHOSPHATASE 63 IU/L (42-121); ALT ALANINE AMINOTRANSFERASE 30 IU/L (10-60); AST ASPARTATE AMINOTRANSFERASE 27 IU/L (10-42); BILIRUBIN,TOTAL 0.5 mg/dL (0.2-1.0); BUN - BLOOD UREA NITROGEN 18 mg/dL (6-20); CALCIUM 9.1 mg/dL (8.5-10.3); CARBON DIOXIDE - CO2 24 mmol/L (21-32); CHLORIDE 98 mmol/L (101-111); CHOL/HDL RATIO 3.4 (<4.4); CHOLESTEROL 166 mg/dL; CREATININE 0.7 mg/dL (0.4-1.0); GFR - MDRD 88 (>89); GLUCOSE 106 mg/dL (70-100); HDL CHOLESTEROL 49 mg/dL; LDL CHOLESTEROL,CALCULATED 102 mg/dL; LDL/HDL RATIO 2.1 (<4.4); MAGNESIUM 1.8 mg/dL (1.7-2.8); POTASSIUM 4.2 mmol/L (3.5-5.0); SODIUM 130 mmol/L (135-145); TOTAL PROTEIN 7.3 g/dL (6.7-8.2); TRIGLYCERIDES 76 mg/dL; VLDL CHOLESTEROL 15 mg/dL
== END 2022-08-25 09:55 | disposition home or self-care (01) ==
LOC: LAB 09:54
PROVIDERS: ATTEND Internal Medicine Cardiovascular Disease
DX: I11.9 Hypertensive heart disease without heart failure (principal)
CPT/HCPCS: 36415; 80053; 80061; 83721; 83735; 84443

== ENCOUNTER 2022-11-17 16:41 | Emergency (ER) | payer MEDICARE, MEDICAID ==
--- NOTE | 2022-11-17 16:59 | ED Physician Documentation ---
PD HPI ABD PAIN - Stated complaint Stated Complaint: FEMALE /GI - Chief complaint Chief Complaint: Abd Pain - Additional information Additional information: 52-year-old female with a history of cerebral palsy prior hysterectomy chronic suprapubic catheter presents with Concerns that her urine from her suprapubic catheter has been dark and possibly has had some blood in it. She also feels like the output has been somewhat less. She also states that she had diarrhea couple days ago and thought perhaps there was some blood in it. She has more formed stool today. Patient concerned because She has had prior sepsis secondary to urinary tract infections. She has not had a fever recently however, no nausea or vomiting, no new weakness or alteration in mental status. She has been tolerating p.o. Review of Systems Constitutional: reports: Reviewed and negative Eyes: reports: Reviewed and negative Ears: reports: Reviewed and negative Nose: reports: Reviewed and negative Throat: reports: Reviewed and negative Cardiac: reports: Reviewed and negative Respiratory: reports: Reviewed and negative GI: reports: Diarrhea. denies: Abdominal Pain, Abdominal Swelling, Nausea, Vomiting, Constipation, Hematemesis, Bloody / black stool : reports: Other (Dark urine) Skin: reports: Reviewed and negative Musculoskeletal: reports: Reviewed and negative PD PAST MEDICAL HISTORY - Past Medical History Cardiovascular: Hypertension Respiratory: Asthma, Other Neuro: Cerebral palsy Endocrine/Autoimmune: Other GI: GERD AUTO PARTS CLERK: None : Indwelling catheter HEENT: Chronic vision loss Psych: Depression, Anxiety, Bipolar disorder, Post traumatic stress disorder Musculoskeletal: Osteoarthritis, Other Derm: Psoriasis - Past Surgical History Past Surgical History: Yes General: Hiatal hernia repair, EGD Ortho: Other /AUTO PARTS CLERK: section, Hysterectomy - Present Medications Home Medications: Ambulatory Orders Medication Instructions Recorded Confirmed Propranolol [Inderal] 20 mg PO TID 04/27/13 05/10/22 Enalapril [Vasotec] 5 mg ORAL DAILY 05/14/14 05/10/22 Citalopram Hydrobromide [Celexa] 10 mg PO DAILY 08/22/16 05/10/22 Oxybutynin Chloride [Ditropan Xl] 10 mg PO DAILY 01/23/17 05/10/22 Quetiapine Fumarate [Seroquel Xr] 300 mg PO DAILY PM 01/23/17 05/10/22 ARIPiprazole [Abilify] 20 mg PO DAILY 08/28/17 05/10/22 hydrOXYzine pamoate [Hydroxyzine 25 mg PO DAILY PRN 07/09/18 05/10/22 Pamoate] Dexlansoprazole [Dexilant] 30 mg PO DAILY 02/16/21 05/10/22 Meloxicam [Mobic] 15 mg PO DAILY 02/16/21 05/10/22 buPROPion [Wellbutrin Xl] 150 mg PO DAILY 02/16/21 05/10/22 Multivitamin W/Minerals [Theragran 1 tab PO QDLUNCH #30 tablet 03/01/21 05/10/22 M] Meclizine [Antivert] 25 mg PO Q6H PRN #14 tablet 02/27/22 05/10/22 Ondansetron Odt [Zofran Odt] 4 mg TL Q6H PRN #10 tablet 02/27/22 05/10/22 Zolpidem Tartrate [Ambien] 10 mg PO HS PRN 05/10/22 05/10/22 Amox/Clav 875/125 [Augmentin] 1 each PO Q12H #20 tablet 11/17/22 - Allergies Allergies/Adverse Reactions: Allergies Allergy/AdvReac Type Severity Reaction Status Date / Time phenazopyridine Allergy Unknown Verified 11/17/22 16:53 [From Pyridium] paroxetine HCl * [From Paxil] AdvReac Intermediate Emesis Verified 11/17/22 1 6:53 codeine [Codeine] AdvReac Pass Out Verified 11/17/22 16:53 - Social History Does the pt smoke?: No Smoking Status: Never smoker Does the pt drink ETOH?: No Does the pt have substance abuse?: No - Immunizations Immunizations are current?: Yes - POLST Patient has POLST: No Results - Vitals Vitals: Vital Signs - 24 hr 11/17/22 16:46 Temperature 36.6 C Heart Rate 72 Respiratory 18 Rate Blood Pressure 135/93 H O2 Saturation 100 Oxygen O2 Source Room air - Labs Labs: Laboratory Tests 11/17/22 11/17/22 11/17/22 17:06 17:06 18:41 WBC 8.3 RBC 4.36 Hgb 13.3 Hct 41.1 MCV 94.3 MCH 30.5 MCHC 32.4 RDW 12.2 Plt Count 267 MPV 10.0 Neut # (Auto) 5.5 Lymph # (Auto) 1.6 Henry # (Auto) 0.7 Eos # (Auto) 0.5 Baso # (Auto) 0.1 Absolute Nucleated RBC 0.00 Nucleated RBC % 0.0 Sodium 131 L Potassium 4.7 Chloride 102 Carbon Dioxide 25 Anion Gap 4.0 L BUN 20 Creatinine 0.7 Estimated GFR (MDRD) 88 L Glucose 110 H Calcium 9.1 Total Bilirubin 0.4 AST 20 ALT 22 Alkaline Phosphatase 80 Total Protein 7.6 Albumin 3.5 Globulin 4.1 Albumin/Globulin Ratio 0.9 L Lipase 33 Urine Color YELLOW Urine Clarity TURBID Urine pH 8.0 H Ur Specific [place] 1.010 Urine Protein NEGATIVE Urine Glucose (UA) NEGATIVE Urine Ketones NEGATIVE Urine Occult Blood TRACE-INTA Urine Nitrite POSITIVE H Urine Bilirubin NEGATIVE Urine Urobilinogen 0.2 (NORMAL) Ur Leukocyte Esterase LARGE H Urine RBC 6-10 H Urine WBC 11-25 H Ur Squamous Epith Cells RARE Squamous Urine Bacteria Moderate H Ur Microscopic Review INDICATED Urine Culture Comments INDICATED PD Medical Decision Making - ED course Complexity details: reviewed results, re-evaluated patient, considered differential, d/w patient ED course: This is a 52-year-old female who presents with concerns for dark urine and possible decreased urine output from her suprapubic catheter. However at this time, she has nearly a full bag of urine and appears quite clear. We did send this for urinalysis and it does look like there may be infection. We will send this for culture. Patient has previously had Pseudomonas that is quite resistant as well as Proteus. I have started the patient on Augmentin per prior cultures and she received first dose here. Her other labs are stable, she does not have a leukocytosis, her H&H is normal, her sodium is slightly low at 131 but otherwise stable CMP. She is nontoxic-appearing with stable vital signs and stable for outpatient management of urinary tract infection at this time. We have sent the urine for culture and we will notify her if any changes need to be made. Departure - Departure Disposition: 01 Home, Self Care Clinical Impression: Urinary tract infection Qualifiers: Urinary tract infection type: catheter-associated UTI Indwelling urinary catheter type: cystostomy catheter Encounter type: initial encounter Qualified Code(s): T83.510A - Infection and inflammatory reaction due to cystostomy catheter, initial encounter Condition: Good Instructions: ED UTI Cystitis Female Prescriptions: Amox/Clav 875/125 [Augmentin] 1 each PO Q12H #20 tablet Comments: You have a suspected urinary tract infection again today. I have started you on an antibiotic, we gave you a dose here and I sent the wrist to [facility]. You will need to take it for the next 10 days. If you develop a fever, or worsening symptoms, please return to the ER. Your vital signs and labs are otherwise stable today.
--- OUTSIDE RECORDS SUMMARY | 2022-11-17 17:01 | EXTERNAL MEDICAL SUMMARY RPT | Continuity of Care Document ---
:1970 Author Organization [facility] Address [address] [place] [address] Phone Allergies No information. Encounters No information. Functional Status No information. Immunizations No information. Medications No information. Problems date description facility 2022-08-27 09:24 Heart disease, unspecified [facility] 2022-08-27 09:24 Encounter for surgical aftercare follow [facility] surgery on the sk Procedures No information. Results/Labs test date author facility value unit interpret ation Result panel 1 (unknown) (no (unknown) (unknown) (no value) (units (unk nown) date) unknown) (unknown) (no (unknown) (unknown) +---------+ (units (un known) date) [phone] +--------- unknown) (unknown) (no (unknown) (unknown) +---------+ (units (un known) date) Hospital +--------- unknown) (unknown) (no (unknown) (unknown) + (units (unknown) date) unknown) --- (unknown) (no (unknown) (unknown) 08/27/22 (units (unkno wn) date) unknown) (unknown) (no (unknown) (unknown) 1210 (units (unknown) date) unknown) (unknown) (no (unknown) (unknown) : : [address] (units (unknown) date) : : unknown) (unknown) (no (unknown) (unknown) : : [id number] : : (units ( unknown) date) unknown) (unknown) (no (unknown) (unknown) : : [facility] (units (unknown) date) : : unknown) (unknown) (no (unknown) (unknown) : : Phone: [phone] (units (unknown) date) : unknown) (unknown) (no (unknown) (unknown) :Account #: (units (un known) date) [id number] Gender: unknown) Female BSA: 1.8 m2 : (unknown) (no (unknown) (unknown) :: 1970 (units (unknown) date) Age: 52 yrs BP: unknown) 124/78 mmHg: (unknown) (no (unknown) (unknown) :Hospital MRN #: (units (unknown) date) [id number] unknown) ReadingLocation: Weight: 170 lb : (unknown) (no (unknown) (unknown) :Name: ROMI (units ( unknown) date) KORY LIDIA unknown) G Study Date: 08/27/2022 Height: 62 in : (unknown) (no (unknown) (unknown) :Ordering (units (unkn own) date) Physician: ROMI, unknown) VIDHU Performed By: Daisy Disla : (unknown) (no (unknown) (unknown) :Reason For Study: (units (unknown) date) HEART DISEASE : unknown) (unknown) (no (unknown) (unknown) :Referring: (units (un known) date) ALEXANDREAL, VIDHU : unknown) (unknown) (no (unknown) (unknown) sev ratio: 0.70 (units (unknown) date) unknown) (unknown) (no (unknown) (unknown) BARAK indexed to BSA (units (unknown) date) (cm2/m2): 1.3 unknown) (unknown) (no (unknown) (unknown) Accession Number: (units (unknown) date) [id number] unknown) (unknown) (no (unknown) (unknown) Age/Sex: 52 / F (units (unknown) date) Date of Service: unknown) (unknown) (no (unknown) (unknown) [facility] (units ( unknown) date) [id number] unknown) (unknown) (no (unknown) (unknown) Ao V2 VTI: 30.6 cm (units (unknown) date) BARAK(V,D): 2.3 cm2 unknown) (unknown) (no (unknown) (unknown) Ao V2 max: 136.7 (units (unknown) date) cm/sec LVOT Max unknown) Arjun: 96.2 cm/sec (unknown) (no (unknown) (unknown) Ao V2 mean: 95.6 (units (unknown) date) cm/sec LV V1 max unknown) P.7 mmHg (unknown) (no (unknown) (unknown) Ao max P.5 (units (unknown) date) mmHg LV V1 VTI: unknown) 21.3 cm (unknown) (no (unknown) (unknown) Ao mean P.2 (units (unknown) date) mmHg BARAK(I,D): 2.2 unknown) cm2 (unknown) (no (unknown) (unknown) Aortic Valve: The (units (unknown) date) aortic valve is not unknown) well visualized. There is no aortic (unknown) (no (unknown) (unknown) Atria: The left (units (unknown) date) atrium is mildly unknown) dilated. Right atrial size is normal. There (unknown) (no (unknown) (unknown) : 1970 (units (unknown) date) Acct:[id number] unknown) (unknown) (no (unknown) (unknown) Doppler (units (unkno wn) date) Measurements + unknown) Calculations (unknown) (no (unknown) (unknown) E/E' lat: 9.6 (units ( unknown) date) unknown) (unknown) (no (unknown) (unknown) E/E' med: 10.2 (units (unknown) date) unknown) (unknown) (no (unknown) (unknown) E/E' med: 10.2. (units (unknown) date) unknown) (unknown) (no (unknown) (unknown) E/e' average: 9.9 (units (unknown) date) unknown) (unknown) (no (unknown) (unknown) Echocardiogram (units (unknown) date) Report unknown) (unknown) (no (unknown) (unknown) Echocardiography (units (unknown) date) Report unknown) (unknown) (no (unknown) (unknown) Electronically (units (unknown) date) signed by: Vidhu S unknownRiley Elizondo on 08/27/2022 (unknown) (no (unknown) (unknown) FS: 27.4 % (units (unk nown) date) unknown) (unknown) (no (unknown) (unknown) Great Vessels: The (units (unknown) date) aortic root is not unknown) well visualized. The ascending aorta (unknown) (no (unknown) (unknown) IVSd: 0.89 cm (units ( unknown) date) unknown) (unknown) (no (unknown) (unknown) Interpretation (units (unknown) date) Summary unknown) (unknown) (no (unknown) (unknown) [facility] (units (unknown) date) unknown) (unknown) (no (unknown) (unknown) [facility] (units (unkno wn) date) unknown) (unknown) (no (unknown) (unknown) LA A2 area: 24.5 (units (unknown) date) cm2 RA long axis: unknown) 4.9 cm (unknown) (no (unknown) (unknown) LA A4 area: 19.5 (units (unknown) date) cm2 RA area: 16.9 unknown) cm2 (unknown) (no (unknown) (unknown) LA length (vol): (units (unknown) date) 5.5 cm RA vol: 49.8 unknown) ml (unknown) (no (unknown) (unknown) LA vol index: 41.4 (units (unknown) date) ml/m2 unknown) (unknown) (no (unknown) (unknown) LA vol: 73.9 ml RA (units (unknown) date) : 27.9 ml/m2 unknown) (unknown) (no (unknown) (unknown) LV pabon. (units (unkno wn) date) diameter/BSA unknown) (cm/m2): 2.2 (unknown) (no (unknown) (unknown) LV sys. (units (unkno wn) date) diameter/BSA unknown) (cm/m2): 1.6 (unknown) (no (unknown) (unknown) LVIDd: 3.9 cm LVOT (units (unknown) date) diam: 2.0 cm unknown) (unknown) (no (unknown) (unknown) LVIDs: 2.8 cm (units ( unknown) date) unknown) (unknown) (no (unknown) (unknown) LVPWd: 0.85 cm (units (unknown) date) unknown) (unknown) (no (unknown) (unknown) Lat Peak E' Arjun: (units (unknown) date) 8.5 cm/sec unknown) (unknown) (no (unknown) (unknown) Left Ventricle: (units (unknown) date) The left ventricle unknown) is normal in size and wall thickness. (unknown) (no (unknown) (unknown) Loc: ECHO (units (unkn own) date) unknown) (unknown) (no (unknown) (unknown) MMode/2D (units (unkno wn) date) Measurements + unknown) Calculations (unknown) (no (unknown) (unknown) MR#: [id number] (units (unknown) date) unknown) (unknown) (no (unknown) (unknown) MV A max arjun: 68.3 (units (unknown) date) cm/sec unknown) (unknown) (no (unknown) (unknown) MV E max arjun: 81.7 (units (unknown) date) cm/sec SV(LVOT): unknown) 68.2 ml (unknown) (no (unknown) (unknown) MV E/A: 1.2 (units (un known) date) unknown) (unknown) (no (unknown) (unknown) MV dec time: 0.23 (units (unknown) date) sec unknown) (unknown) (no (unknown) (unknown) Med Peak E' Arjun: (units (unknown) date) 8.0 cm/sec unknown) (unknown) (no (unknown) (unknown) Mitral Valve: (units ( unknown) date) There is mild unknown) mitral annular calcification. There is trace (unknown) (no (unknown) (unknown) No significant (units (unknown) date) valvular pathology unknown) seen. (unknown) (no (unknown) (unknown) Ordering Provider: (units (unknown) date) Dana Elizondo MD unknown) (unknown) (no (unknown) (unknown) Patient was (units (un known) date) scanned supine unknown) position in her wheelchair. (unknown) (no (unknown) (unknown) Patient: Romi (units (unknown) date) Lidia Haas G unknown) (unknown) (no (unknown) (unknown) Pericardium/ (units (u nknown) date) Pleura There is no unknown) pericardial effusion. There is no pleural (unknown) (no (unknown) (unknown) Procedure: A (units (u nknown) date) two-dimensional unknown) transthoracic echocardiogram with color flow (unknown) (no (unknown) (unknown) Procedure: EC echo (units (unknown) date) doppler complete unknown) (unknown) (no (unknown) (unknown) Pulmonic Valve: (units (unknown) date) The pulmonic valve unknown) is not well visualized. (unknown) (no (unknown) (unknown) RVD1 (basal): 2.9 (units (unknown) date) cm unknown) (unknown) (no (unknown) (unknown) RVD2 (mid): 2.5 cm (units (unknown) date) unknown) (unknown) (no (unknown) (unknown) Reading (units (unkno wn) date) Physician:04:24 PM unknown) (unknown) (no (unknown) (unknown) Right Ventricle: (units (unknown) date) The right ventricle unknown) is normal in size and function. (unknown) (no (unknown) (unknown) Signed (units (unkno wn) date) unknown) (unknown) (no (unknown) (unknown) TAPSE: 2.0 cm (units ( unknown) date) unknown) (unknown) (no (unknown) (unknown) The ejection (units (u nknown) date) fraction is unknown) estimated to be 65-70%. No significant diastolic (unknown) (no (unknown) (unknown) The left ventricle (units (unknown) date) is normal in size unknown) and wall thickness. (unknown) (no (unknown) (unknown) The right (units (unkn own) date) ventricle is normal unknown) in size and function. (unknown) (no (unknown) (unknown) The study quality (units (unknown) date) was technically unknown) difficult. (unknown) (no (unknown) (unknown) There is no (units (un known) date) thrombus. The unknown) ejection fraction is estimated to be 65-70%. There (unknown) (no (unknown) (unknown) Tricuspid Valve: (units (unknown) date) The tricuspid valve unknown) is normal in structure and function. No (unknown) (no (unknown) (unknown) (units (unknown) date) unknown) ___ (unknown) (no (unknown) (unknown) and Doppler was (units (unknown) date) performed. The unknown) study quality was technically difficult. There (unknown) (no (unknown) (unknown) are no focal wall (units (unknown) date) motion unknown) abnormalities. MV E/A: 1.2 (unknown) (no (unknown) (unknown) because of the (units (unknown) date) lack of a unknown) measurable TR jet velocity. (unknown) (no (unknown) (unknown) between 64-73 bpm (units (unknown) date) during the exam. unknown) (unknown) (no (unknown) (unknown) could not be (units (u nknown) date) visualized. The unknown) inferior vena cava was not well visualized. (unknown) (no (unknown) (unknown) dysfunction. (units (u nknown) date) unknown) (unknown) (no (unknown) (unknown) effusion. (units (unkn own) date) unknown) (unknown) (no (unknown) (unknown) is no Doppler (units ( unknown) date) evidence for an unknown) interatrial shunt. (unknown) (no (unknown) (unknown) is no prior (units (un known) date) echocardiogram unknown) noted for this patient. Patient was scanned supine (unknown) (no (unknown) (unknown) mitral (units (unkno wn) date) regurgitation. unknown) (unknown) (no (unknown) (unknown) position in her (units (unknown) date) wheelchair. The unknown) patient was in sinus rhythm with heart rates (unknown) (no (unknown) (unknown) tricuspid (units (unkn own) date) regurgitation. unknown) Pulmonary artery pressures cannot be estimated (unknown) (no (unknown) (unknown) valve stenosis. No (units (unknown) date) aortic unknown) regurgitation is present. Social History No information. Vital Signs No information.
[2022-11-17 17:10] LABS: BASOPHILS # (AUTO) 0.1 10^3/uL (0.0-0.1); BASOPHILS % (AUTO) 0.8 %; EOSINOPHILS # (AUTO) 0.5 10^3/uL (0.0-0.7); EOSINOPHILS % (AUTO) 5.6 %; HCT - HEMATOCRIT 41.1 % (37.0-47.0); HGB - HEMOGLOBIN 13.3 g/dL (12.0-16.0); LYMPHOCYTES # (AUTO) 1.6 10^3/uL (1.5-3.5); MEAN CORPUSCULAR HEMOGLOBIN 30.5 pg (27.0-31.0); MEAN CORPUSCULAR HGB CONC 32.4 g/dL (32.0-36.0); MEAN CORPUSCULAR VOLUME 94.3 fL (81.0-99.0); MONOCYTES # (AUTO) 0.7 10^3/uL (0.0-1.0); MONOCYTES % (AUTO) 8.4 %; NEUTROPHILS # (AUTO) 5.5 10^3/uL (1.5-6.6); PLT - PLATELET COUNT 267 10^3/uL (130-450); RED BLOOD COUNT 4.36 10^6/uL (4.20-5.40); RED CELL DISTRIBUTION WIDTH 12.2 % (12.0-15.0); WHITE BLOOD COUNT 8.3 x10^3/uL (4.8-10.8)
[2022-11-17 17:52] LABS: ALBUMIN 3.5 g/dL (3.2-5.5); ALBUMIN/GLOBULIN RATIO 0.9 (1.0-2.2); BILIRUBIN,TOTAL 0.4 mg/dL (0.2-1.0); CALCIUM 9.1 mg/dL (8.5-10.3); CREATININE 0.7 mg/dL (0.4-1.0); POTASSIUM 4.7 mmol/L (3.5-5.0); TOTAL PROTEIN 7.6 g/dL (6.7-8.2)
[2022-11-17 18:50] LABS: BILIRUBIN,URINE NEGATIVE (NEGATIVE); GLUCOSE, URINE (UA) NEGATIVE (NEGATIVE); KETONES,URINE (UA) NEGATIVE (NEGATIVE); LEUKOCYTE ESTERASE, URINE LARGE (NEGATIVE); NITRITE,URINE POSITIVE (NEGATIVE); OCCULT BLOOD,URINE TRACE-INTA (NEGATIVE); PROTEIN,URINE NEGATIVE (NEGATIVE); UROBILINOGEN,URINE 0.2 (NORMAL) E.U./dL (NORMAL)
[2022-11-17 18:53] LABS: CLARITY,URINE TURBID (CLEAR); SQUAMOUS EPITHELIAL CELL,UR RARE Squamous (<= Few)
[2022-11-17 18:54] LABS: BACTERIA,URINE Moderate /HPF (None Seen)
[2022-11-17] MEDS ORDERED: AMOX/CLAV 875 MG/125 MG TABLET PO STA (19:22)
[2022-11-17 19:54] VITALS: BP 141/85
== END 2022-11-17 19:54 | disposition home or self-care (01) ==
LOC: ED 16:41
DX: T83.510A Infection and inflammatory reaction due to cystostomy catheter, initial encounter (principal); I10 Essential (primary) hypertension
CPT/HCPCS: 36415; 80053; 81001; 83690; 85025; 87086; 99283; A9270; 81003

== ENCOUNTER 2022-11-28 12:01 | Outpatient (CLI) | payer MEDICARE, MEDICAID ==
[2022-11-28 17:42] LABS: BASOPHILS # (AUTO) 0.1 10^3/uL (0.0-0.1); BASOPHILS % (AUTO) 0.9 %; EOSINOPHILS # (AUTO) 0.4 10^3/uL (0.0-0.7); EOSINOPHILS % (AUTO) 5.3 %; HCT - HEMATOCRIT 38.2 % (37.0-47.0); HGB - HEMOGLOBIN 12.7 g/dL (12.0-16.0); LYMPHOCYTES # (AUTO) 1.6 10^3/uL (1.5-3.5); LYMPHOCYTES % (AUTO) 23.3 %; MEAN CORPUSCULAR HEMOGLOBIN 30.5 pg (27.0-31.0); MEAN CORPUSCULAR HGB CONC 33.2 g/dL (32.0-36.0); MEAN CORPUSCULAR VOLUME 91.8 fL (81.0-99.0); MEAN PLATELET VOLUME 10.3 fL (7.9-10.8); MONOCYTES # (AUTO) 0.6 10^3/uL (0.0-1.0); MONOCYTES % (AUTO) 8.5 %; NEUTROPHILS # (AUTO) 4.3 10^3/uL (1.5-6.6); NEUTROPHILS % (AUTO) 61.9 %; PLT - PLATELET COUNT 251 10^3/uL (130-450); RED BLOOD COUNT 4.16 10^6/uL (4.20-5.40); RED CELL DISTRIBUTION WIDTH 12.2 % (12.0-15.0); WHITE BLOOD COUNT 6.9 x10^3/uL (4.8-10.8)
[2022-11-28 17:57] LABS: ALBUMIN 3.4 g/dL (3.2-5.5); ALBUMIN/GLOBULIN RATIO 0.9 (1.0-2.2); BILIRUBIN,TOTAL 0.5 mg/dL (0.2-1.0); CALCIUM 9.1 mg/dL (8.5-10.3); CREATININE 0.6 mg/dL (0.4-1.0); POTASSIUM 4.3 mmol/L (3.5-5.0)
== END 2022-11-28 12:02 | disposition home or self-care (01) ==
LOC: LAB.N 12:01
PROVIDERS: ATTEND Family Medicine
DX: I11.0 Hypertensive heart disease with heart failure (principal); I50.1 Left ventricular failure, unspecified; R19.5 Other fecal abnormalities; N20.0 Calculus of kidney; N31.9 Neuromuscular dysfunction of bladder, unspecified; R25.2 Cramp and spasm; Z93.59 Other cystostomy status; G80.8 Other cerebral palsy; F31.30 Bipolar disorder, current episode depressed, mild or moderate severity, unspecified
CPT/HCPCS: 36415; 80053; 85025

== ENCOUNTER 2022-12-07 07:25 | Inpatient (IN) | payer MEDICARE, MEDICAID ==
--- NOTE | 2022-12-07 14:46 | SURGERY HX AND PHYSICAL(T) ---
Surgical History & Physical - Chief Complaint/HPI Chief Complaint: I'm here for my bowel prep History of Present Illness: Ms. Khris Haas is a 52-year-old female with a complex past medical history including cerebral palsy for which she is wheelchair-bound, hypertension, GERD, bipolar disorder, and asthma. The patient had a positive fit test in May of last year. She endorses chronic constipation and has a bowel movement about 3 times a week. She "does not look" but states that she has not had any blood in her stool to the best of her knowledge. When I initially saw her in September, she had recently been ill with a kidney stone, and endorsed some recent weight loss which she felt was related to that disease process. She denies any abdominal pain. She has a history of heartburn which she feels is well controlled and denies regular trouble with vomiting or diarrhea. Since I saw her, she has had increased difficulty with nausea and is taking Zofran 1-2 times per day. She has no history of previous colonoscopy. Due to the patient's very limited mobility, she is being admitted for bowel preparation. She has decreased bowel motility as evidenced by her chronic constipation, and therefore a 2-day bowel prep will be needed. She brings with her a Sutab bowel prep which she will do on the second day and will do MiraLAX for the first day of her prep. Since I last saw the patient in clinic, she denies any recent illnesses. She is nervous about her prep and anxious to get her procedures completed. 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 Neurological History: Cerebral palsy Eyes, Ears, Nose, Throat: Chronic vision loss Cardiovascular: Hypertension Respiratory: Asthma, Other Skin: Psoriasis Endocrine/Autoimmune: Other Gastrointestinal: GERD ELECTRIC HOIST OPERATOR: None Urinary: Indwelling catheter Musculoskeletal: Osteoarthritis, Other Blood Disorders: None Psychiatric: Depression, Anxiety, Bipolar disorder, Post traumatic stress disorder General: Hiatal hernia repair, EGD Orthopedic: Other Urologic: Kidney stents Smoking Status: Never smoker Does the pt drink ETOH?: No Does the pt have substance abuse?: No - Family Hx Family Hx: Other (Mother and father both with hypertension. No family history of colon cancer.) - Home Meds and Allergies Home Medications: Propranolol [Inderal] 20 mg PO TID 04/27/13 Enalapril [Vasotec] 5 mg ORAL DAILY 05/14/14 Citalopram Hydrobromide [Celexa] 10 mg PO DAILY 08/22/16 Oxybutynin Chloride [Ditropan Xl] 10 mg PO DAILY 01/23/17 Quetiapine Fumarate [Seroquel Xr] 300 mg PO DAILY PM 01/23/17 ARIPiprazole [Abilify] 20 mg PO DAILY 08/28/17 hydrOXYzine pamoate [Hydroxyzine Pamoate] 25 mg PO DAILY PRN 07/09/18 Dexlansoprazole [Dexilant] 30 mg PO DAILY 02/16/21 Meloxicam [Mobic] 15 mg PO DAILY 02/16/21 buPROPion [Wellbutrin Xl] 150 mg PO DAILY 02/16/21 Zolpidem Tartrate [Ambien] 10 mg PO HS PRN 05/10/22 Allergies/Adverse Reactions: Allergies Allergy/AdvReac Type Severity Reaction Status Date / Time phenazopyridine Allergy Unknown Verified 11/17/22 16:53 [From Pyridium] paroxetine HCl * [From Paxil] AdvReac Intermediate Emesis Verified 11/17/22 16:53 codeine [Codeine] AdvReac Pass Out Verified 11/17/22 16:53 - Review of Systems Constitutional: Other (A complete 10 point review of symptoms is otherwise negative except for that noted in HPI and PMH.) - Vital Signs Temperature: 37.1 C Respiratory Rate: 18 O2 Saturation: 95 Height: 1.57 m - Physical Exam Comments/Other: GEN: Anxious, wheelchair-bound, appears stated age, alert and oriented HEENT: NCAT, MMM, EOMI NEURO: CN II-XII grossly intact CV: RRR, no murmer appreciated PULM: CTAB, no wheezes appreciated ABD: soft, non tender, no rebound or guarding CIRCULATORY: no clubbing, cyanosis, or edema SKIN: no lesions appreciated LYMPH: no obvious lymphadenopathy MSK: Contractures of bilateral lower extremities, decreased strength in bilateral upper extremities PSYCH: Patient is anxious - Patient Review Patient Review: Problems were reviewed with the patient during this visit. Medications were reviewed with the patient during this visit. Allergies were reviewed this patient during this visit. Pertinent Tests Reviewed: All pertitent test for this patient were reviewed. - Assessment & Plan Assessment and Plan: This is a 52-year-old female with: 1. Positive fit test -After an extensive discussion with the patient in clinic, she is agreeable to proceeding with upper and lower endoscopy and would be willing to consider surgical intervention if needed to treat findings of endoscopy. I recommended an upper endoscopy to rule out gastritis and lower endoscopy to rule out colitis, colon polyps and colon cancer. 2-day bowel prep needed secondary to decreased bowel motility and chronic constipation The patient is at increased risk for complication given her medical comorbidities and limited mobility. Our anesthesia team has consulted on the patient and feels that she is appropriately optimized to proceed with endoscopy. Plan for MiraLAX bowel prep tonight and tomorrow morning, followed by Sutab bowel prep tomorrow afternoon and Thursday early a.m. Plan for EGD and colonoscopy Thursday and likely discharge to home after these procedures. 2. History of kidney stones -I have emphasized the importance of staying hydrated to the patient during this bowel prep process. 3. Cerebral palsy, hypertension, GERD, bipolar disorder, asthma, left ventricular dysfunction Plan to continue the patient's home medications today and tomorrow. And management of her medications for her procedure, her enalapril will need to be held on the date of her procedure. Patient's chronic indwelling Epps catheter will be continued. She will require transfer using a lift and may benefit from use of a bedpan during bowel prep. The patient has been admitted to inpatient. SCDs for DVT prophylaxis have been ordered.
[2022-12-07] MEDS ORDERED: polyethylene glycoL 3350 238 GM BOTTLE PO SCH (15:00)
[2022-12-07] MEDS ORDERED: ALBUTEROL NEB 2.5 MG/3 ML INH PRN (16:46)
[2022-12-07] MEDS: ONDANSETRON 4 MG/2 ML VIAL IVP PRN (17:39)
[2022-12-07] MEDS: PANTOPRAZOLE 40 MG TABLET PO SCH (17:52)
[2022-12-07] MEDS: PROPRANOLOL 40 MG TABLET PO SCH (22:54)
[2022-12-07] MEDS: hydrOXYzine PAMOATE 25 MG CAPSULE PO PRN (22:56)
[2022-12-08] MEDS: PROPRANOLOL 40 MG TABLET PO SCH ×3 (06:06→21:26)
[2022-12-08] MEDS: PANTOPRAZOLE 40 MG TABLET PO SCH (06:06)
--- NOTE | 2022-12-08 06:52 | PROVIDER PROGRESS NOTE ---
Subjective - General Admit Date: 12/07/22 - Other Other Information/Narrative: Alyx is resting comftably and has no questions this AM. She is tolerating bowel prep well. She denies n/v. No acute events overnight. Objective - Patient Data Reviewed Vital Signs: Yes Vital Signs: Vital Signs x48h Temp Pulse Resp BP BP Pulse Ox 12/08/22 05:07 36.7 C 65 18 104/62 94 12/07/22 23:45 36.5 C 69 18 104/77 96 Weight: Weight 12/06/22 12/07/22 12/08/22 23:59 23:59 23:59 Weight (kg) 81 kg Intake & Output: Intake and Output Totals x24h 12/06/22 12/07/22 12/08/22 23:59 23:59 23:59 Intake Total 1820 Output Total 1100 950 Balance 720 -950 - Current Medications Current Medications: Current Medications Generic Name Dose Route Start Last Admin Trade Name Freq PRN Reason Stop Dose Admin Hydroxyzine Pamoate 25 mg 12/07/22 16:51 12/07/22 22:56 Hydroxyzine Pamoate 25 Mg Capsule PO 25 mg DAILY PRN Administration ITCHING Ondansetron HCl 4 mg 12/07/22 07:25 12/07/22 17:39 Ondansetron 4 Mg/2 Ml Vial IVP 4 mg Q6HR PRN Administration Nausea / Vomiting Pantoprazole Sodium 40 mg 12/07/22 17:00 12/08/22 06:06 Pantoprazole 40 Mg Tablet PO 40 mg QDAC KRAIG Administration Polyethylene Glycol 238 gm 12/07/22 15:00 12/07/22 16:20 Polyethylene Glycol 3350 238 Gm Bottle PO 12/08/22 10:59 238 gm ONCE KRAIG Administration Propranolol HCl 20 mg 12/07/22 22:00 12/08/22 06:06 Propranolol 40 Mg Tablet PO 20 mg TID KRAIG Administration - Physical Exam General Appearance: positive: No acute distress, Other (resting but easily awakens to voice) Eyes Bilateral: positive: Normal inspection, PERRL ENT: positive: No signs of dehydration Neck: positive: Trachea midline Respiratory: positive: No respiratory distress, Other (on RA) Cardiovascular: positive: Regular rate & rhythm Abdomen: positive: Non-tender, No distention Skin: positive: Color nml Extremities: positive: Non-tender Neurologic/Psychiatric: positive: Oriented x3 Impression/Plan - Problem List Problem List: This is a 52-year-old female with: 1. Positive FIT test -After an extensive discussion with the patient in clinic, she is agreeable to proceeding with upper and lower endoscopy and would be willing to consider surgical intervention if needed to treat findings of endoscopy. I recommended an upper endoscopy to rule out gastritis and lower endoscopy to rule out colitis, colon polyps and colon cancer. 2-day bowel prep needed secondary to decreased bowel motility and chronic constipation The patient is at increased risk for complication given her medical comorbidities and limited mobility. Our anesthesia team has consulted on the patient and feels that she is appropriately optimized to proceed with endoscopy. Plan to complete MiraLAX bowel prep this AM, followed by Sutab bowel prep this afternoon and tomorrow early a.m. Plan for EGD and colonoscopy tomorrow morning and likely discharge to home after these procedures. Using bedpan and lift as needed. 2. History of kidney stones -I have emphasized the importance of staying hydrated to the patient during this bowel prep process. Good UOP, tolerating liquids well. Zofran available if nauseated. -chronic indwelling butcher in place 3. Cerebral palsy, hypertension, GERD, bipolar disorder, asthma, left ventricular dysfunction Home meds ordered. In management of her medications for her procedure, her enalapril will need to be held on the date of her procedure. DVT ppx: SCD's The patient has been admitted to inpatient.
[2022-12-08] MEDS ORDERED: lisinopriL 20 MG TABLET PO SCH (09:00)
[2022-12-08] MEDS ORDERED: SOLIFENACIN SUCCINATE 10 MG TABLET PO SCH (09:00)
[2022-12-08] MEDS: ZINC OXIDE 20% OINT 30 GM TUBE TOP PRN ×3 (09:00→15:00)
[2022-12-08] MEDS: CITALOPRAM 10 MG TABLET PO SCH (09:24)
[2022-12-08] MEDS: ARIPiprazole 5 MG TABLET PO SCH (09:25)
[2022-12-08] MEDS: ethyl alcohoL 62% SWAB AMPULE NAS SCH ×2 (09:25→21:26)
[2022-12-08] MEDS: MELOXICAM 7.5 MG TABLET PO SCH (09:25)
[2022-12-08] MEDS: hydrOXYzine PAMOATE 25 MG CAPSULE PO PRN (11:02)
[2022-12-08] MEDS: SODIUM CHLORIDE FLUSH 0.9% 10 ML SYRINGE IVP PRN (11:02)
[2022-12-08] MEDS: buPROPion XL 150 MG TABLET PO SCH (11:02)
[2022-12-08] MEDS: ONDANSETRON 4 MG/2 ML VIAL IVP PRN ×2 (11:02→17:16)
[2022-12-08] MEDS: SOLIFENACIN SUCCINATE 5 MG TABLET PO SCH (11:48)
[2022-12-08] MEDS: ACETAMINOPHEN 500 MG TABLET PO PRN ×2 (12:39→16:08)
[2022-12-08] MEDS ORDERED: MAGNESIUM SULFATE PO SCH (17:00)
[2022-12-08] MEDS ORDERED: SODIUM SULFATE PO SCH (17:00)
[2022-12-08] MEDS ORDERED: POTASSIUM CHLORIDE PO SCH (17:00)
[2022-12-08] MEDS ORDERED: polyethylene glycoL 3350 238 GM BOTTLE PO ONE (17:55)
[2022-12-08] MEDS ORDERED: CALCIUM CARBONATE CHEW 500 MG TABLET PO STA (17:56)
[2022-12-08] MEDS: COD LIVER OIL/ZINC OXIDE 113 GM TUBE TOP PRN ×3 (20:05→21:16)
[2022-12-09] MEDS: ONDANSETRON 4 MG/2 ML VIAL IVP PRN ×2 (00:14→08:03)
[2022-12-09] MEDS: SODIUM CHLORIDE FLUSH 0.9% 10 ML SYRINGE IVP PRN ×3 (00:14→10:35)
[2022-12-09] MEDS ORDERED: polyethylene glycoL 3350 17 GM PACKET PO ONE ×2 (00:30→12:00)
[2022-12-09] MEDS ORDERED: bisacodyL 5 MG TABLET PO ONE ×2 (00:30→07:05)
[2022-12-09] MEDS: PROPRANOLOL 40 MG TABLET PO SCH ×3 (06:50→20:53)
[2022-12-09] MEDS: PANTOPRAZOLE 40 MG TABLET PO SCH (06:50)
--- NOTE | 2022-12-09 07:08 | PROVIDER PROGRESS NOTE ---
Subjective - General Admit Date: 12/07/22 - Other Other Information/Narrative: Patient tolerated miralax well yesterday AM, but vomited after first dose of Sutab prep yesterday evening. Repeat miralax prep given last night. Per RN, stools are becoming more liquid but still passing some solid stool. No further vomiting overnight. Patient is frustrated with bowel prep taking so long and states, "I'm never going to do this again." Objective - Patient Data Reviewed Vital Signs: Yes Vital Signs: Vital Signs x48h Temp Pulse Resp BP Pulse Ox 12/09/22 03:53 36.5 C 64 16 130/88 H 95 12/08/22 23:18 36.6 C 60 16 122/78 96 Weight: Weight 12/07/22 12/08/22 12/09/22 23:59 23:59 23:59 Weight (kg) 81 kg Intake & Output: Intake and Output Totals x24h 12/07/22 12/08/22 12/09/22 23:59 23:59 23:59 Intake Total 1820 1837 Output Total 1100 2275 550 Balance 720 438 -550 - Current Medications Current Medications: Current Medications Generic Name Dose Route Start Last Admin Trade Name Freq PRN Reason Stop Dose Admin Acetaminophen 500 mg 12/08/22 12:05 12/08/22 16:08 Acetaminophen 500 Mg Tablet PO 500 mg Q4HR PRN Administration PAIN 1-4 Alcohol 1 amp 12/08/22 09:00 12/08/22 21:26 Ethyl Alcohol 62% Swab Ampule ANG 1 amp BID KRAGI Administration Aripiprazole 20 mg 12/08/22 09:00 12/08/22 09:25 Aripiprazole 5 Mg Tablet PO 20 mg DAILY KRAIG Administration Bupropion HCl 150 mg 12/08/22 09:00 12/08/22 11:02 Bupropion Xl 150 Mg Tablet PO Not Given DAILY KRAIG Citalopram Hydrobromide 10 mg 12/08/22 09:00 12/08/22 09:24 Citalopram 10 Mg Tablet PO 10 mg DAILY KRAIG Administration Hydroxyzine Pamoate 25 mg 12/07/22 16:51 12/08/22 11:02 Hydroxyzine Pamoate 25 Mg Capsule PO 25 mg DAILY PRN Administration ITCHING Meloxicam 15 mg 12/08/22 09:00 12/08/22 09:25 Meloxicam 7.5 Mg Tablet PO 15 mg DAILY KRAIG Administration Multi-Ingredient Ointment 1 applic 12/08/22 04:53 12/08/22 15:00 Zinc Oxide 20% Oint 30 Gm Tube TOP 1 applic PRN PRN Administration Skin Care Ondansetron HCl 4 mg 12/07/22 07:25 12/09/22 00:14 Ondansetron 4 Mg/2 Ml Vial IVP 4 mg Q6HR PRN Administration Nausea / Vomiting Pantoprazole Sodium 40 mg 12/07/22 17:00 12/09/22 06:50 Pantoprazole 40 Mg Tablet PO Not Given QDAC KRAIG Propranolol HCl 20 mg 12/07/22 22:00 12/09/22 06:50 Propranolol 40 Mg Tablet PO Not Given TID KRAIG Sodium Chloride 10 ml 12/07/22 07:25 12/09/22 00:14 Sodium Chloride Flush 0.9% 10 Ml Syringe IVP 10 ml PRN PRN Administration NEEDED PER PROVIDER ORDERS Solifenacin 10 mg 12/08/22 12:00 12/08/22 11:48 Solifenacin Succinate 5 Mg Tablet PO 10 mg DAILY KRAIG Administration Zinc Oxide 113 gm 12/07/22 23:13 12/08/22 21:16 Cod Liver Oil/Zinc Oxide 113 Gm Tube TOP 113 gm PRN PRN Administration Skin Care - Physical Exam General Appearance: positive: Anxious Eyes Bilateral: positive: Normal inspection, PERRL ENT: positive: No signs of dehydration Neck: positive: Trachea midline Respiratory: positive: No respiratory distress Cardiovascular: positive: Regular rate & rhythm Abdomen: positive: Non-tender, No distention. negative: Guarding, Rebound Skin: positive: No rash Neurologic/Psychiatric: positive: Oriented x3 Impression/Plan - Problem List Problem List: This is a 52-year-old female with: 1. Positive FIT test, poor colonic motility - after two days of prep, patient continues to pass some solid stool; patient's decreased colonic motility is multifactorial with significant contributions from medications and limited mobility. She is very frustrated. Plan for repeat Miralax prep and will add a dose of dulcolax this AM. Continue use of bed pain and lift, prn. Plan for EGD and CE possibly later today if prep improves by noon or tomorrow. The patient is at increased risk for complication given her medical comorbidities and limited mobility. Our anesthesia team has consulted on the patient and feels that she is appropriately optimized to proceed with endoscopy. 2. History of kidney stones -I have emphasized the importance of staying hydrated to the patient during this bowel prep process. Good UOP, tolerating liquids well. Zofran available if nauseated. -chronic indwelling butcher in place 3. Cerebral palsy, hypertension, GERD, bipolar disorder, asthma, left ventri cular dysfunction Home meds ordered. In management of her medications for her procedure, her enalapril will be held this AM. DVT ppx: SCD's The patient has been admitted to inpatient.
[2022-12-09] MEDS ORDERED: polyethylene glycoL 3350 238 GM BOTTLE PO ONE ×2 (08:00→11:00)
[2022-12-09] MEDS: hydrOXYzine PAMOATE 25 MG CAPSULE PO PRN (08:03)
[2022-12-09] MEDS: buPROPion XL 150 MG TABLET PO SCH (08:08)
[2022-12-09] MEDS: ARIPiprazole 5 MG TABLET PO SCH (09:36)
[2022-12-09] MEDS: SOLIFENACIN SUCCINATE 5 MG TABLET PO SCH (09:36)
[2022-12-09] MEDS: MELOXICAM 7.5 MG TABLET PO SCH (09:36)
[2022-12-09] MEDS: CITALOPRAM 10 MG TABLET PO SCH (09:36)
[2022-12-09] MEDS: ethyl alcohoL 62% SWAB AMPULE NAS SCH ×2 (10:35→20:52)
[2022-12-09] MEDS ORDERED: lisinopriL 20 MG TABLET PO ONE (16:00)
[2022-12-10] MEDS ORDERED: polyethylene glycoL 3350 17 GM PACKET PO ONE (00:30)
[2022-12-10] MEDS: ONDANSETRON 4 MG/2 ML VIAL IVP PRN (01:24)
[2022-12-10] MEDS: PANTOPRAZOLE 40 MG TABLET PO SCH (05:09)
[2022-12-10] MEDS: PROPRANOLOL 40 MG TABLET PO SCH ×3 (05:10→21:34)
--- NOTE | 2022-12-10 07:38 | PROVIDER PROGRESS NOTE ---
Subjective - General Admit Date: 12/07/22 - Other Other Information/Narrative: Patient was able to complete additional bowel prep yesterday, last night. No n/v, though she does report "stomach very full" yesterday evening. Stools now liquid and clear per RN. Patient's chief concern this AM is the timing of her procedure so she can arrange a ride this afternoon. Objective - Patient Data Reviewed Vital Signs: Yes Vital Signs: Vital Signs x48h Temp Pulse Resp BP Pulse Ox 12/10/22 04:05 36.7 C 66 18 124/94 H 99 12/10/22 00:20 36.5 C 58 L 16 109/70 96 Intake & Output: Intake and Output Totals x24h 12/08/22 12/09/22 12/10/22 23:59 23:59 23:59 Intake Total 1837 1660 Output Total 2275 1900 1575 [facility] -[phone] - Current Medications Current Medications: Current Medications Generic Name Dose Route Start Last Admin Trade Name Freq PRN Reason Stop Dose Admin Acetaminophen 500 mg 12/08/22 12:05 12/08/22 16:08 Acetaminophen 500 Mg Tablet PO 500 mg Q4HR PRN Administration PAIN 1-4 Alcohol 1 amp 12/08/22 09:00 12/09/22 20:52 Ethyl Alcohol 62% Swab Ampule ANG 1 amp BID KRAIG Administration Aripiprazole 20 mg 12/08/22 09:00 12/09/22 09:36 Aripiprazole 5 Mg Tablet PO Not Given DAILY KRAIG Bupropion HCl 150 mg 12/08/22 09:00 12/09/22 08:08 Bupropion Xl 150 Mg Tablet PO Not Given DAILY KRAIG Citalopram Hydrobromide 10 mg 12/08/22 09:00 12/09/22 09:36 Citalopram 10 Mg Tablet PO Not Given DAILY KRAIG Hydroxyzine Pamoate 25 mg 12/07/22 16:51 12/09/22 08:03 Hydroxyzine Pamoate 25 Mg Capsule PO 25 mg DAILY PRN Administration ITCHING Meloxicam 15 mg 12/08/22 09:00 12/09/22 09:36 Meloxicam 7.5 Mg Tablet PO Not Given DAILY KRAIG Multi-Ingredient Ointment 1 applic 12/08/22 04:53 12/08/22 15:00 Zinc Oxide 20% Oint 30 Gm Tube TOP 1 applic PRN PRN Administration Skin Care Ondansetron HCl 4 mg 12/07/22 07:25 12/10/22 01:24 Ondansetron 4 Mg/2 Ml Vial IVP 4 mg Q6HR PRN Administration Nausea / Vomiting Pantoprazole Sodium 40 mg 12/07/22 17:00 12/10/22 05:09 Pantoprazole 40 Mg Tablet PO 40 mg QDAC KRAIG Administration Propranolol HCl 20 mg 12/07/22 22:00 12/10/22 05:10 Propranolol 40 Mg Tablet PO 20 mg TID KRAIG Administration Sodium Chloride 10 ml 12/07/22 07:25 12/09/22 10:35 Sodium Chloride Flush 0.9% 10 Ml Syringe IVP 10 ml PRN PRN Administration NEEDED PER PROVIDER ORDERS Solifenacin 10 mg 12/08/22 12:00 12/09/22 09:36 Solifenacin Succinate 5 Mg Tablet PO Not Given DAILY KRAIG Zinc Oxide 113 gm 12/07/22 23:13 12/08/22 21:16 Cod Liver Oil/Zinc Oxide 113 Gm Tube TOP 113 gm PRN PRN Administration Skin Care - Physical Exam General Appearance: positive: No acute distress, Other (resting but awakens easily) Eyes Bilateral: positive: Normal inspection, PERRL ENT: positive: No signs of dehydration Neck: positive: Trachea midline Respiratory: positive: Chest non-tender, No respiratory distress Cardiovascular: positive: Regular rate & rhythm Abdomen: positive: Non-tender, No distention. negative: Guarding, Rebound Neurologic/Psychiatric: positive: Oriented x3 Impression/Plan - Problem List Problem List: This is a 52-year-old female with: 1. Positive FIT test, poor colonic motility - after three days of prep, bowel prep appears to be adequate to proceed; patient's decreased colonic motility is multifactorial with significant contributions from medications and limited mobility. Plan for EGD and CE later today when OR is available, likely mid afternoon. The patient is at increased risk for complication given her medical comorbidities and limited mobility. Our anesthesia team has consulted on the patient and feels that she is appropriately optimized to proceed with endoscopy. - NPO at noon. ADAT to regular after procedures. 2. History of kidney stones -I have emphasized the importance of staying hydrated to the patient during this bowel prep process. Good UOP, tolerating liquids well. Zofran available if nauseated. -chronic indwelling butcher in place 3. Cerebral palsy, hypertension, GERD, bipolar disorder, asthma, left ventricular dysfunction Home meds ordered. In management of her medications for her procedure, her en alapril will be held this AM. DVT ppx: SCD's The patient has been admitted to inpatient.
[2022-12-10] MEDS: CITALOPRAM 10 MG TABLET PO SCH (08:29)
[2022-12-10] MEDS: ethyl alcohoL 62% SWAB AMPULE NAS SCH ×2 (08:29→21:31)
[2022-12-10] MEDS: SOLIFENACIN SUCCINATE 5 MG TABLET PO SCH (08:29)
[2022-12-10] MEDS: buPROPion XL 150 MG TABLET PO SCH (08:29)
[2022-12-10] MEDS: MELOXICAM 7.5 MG TABLET PO SCH (08:30)
[2022-12-10] MEDS: ARIPiprazole 5 MG TABLET PO SCH (08:31)
--- NOTE | 2022-12-10 15:05 | ANESTHESIA ---
Pre-Anesthesia VS, & Labs - Diagnosis positive FIT test, GERD - Procedure EGD and colonoscopy Vital Signs: Temp Pulse Resp BP Pulse Ox O2 Flow Rate 36.6 C 56 L 17 125/85 H 98 12/10/22 12:12/10/22 12:12/10/22 12:12/10/22 12:12/10/22 12:26 Height: 5 ft 2 in Weight (kg): 81 kg Body Mass Index: 32.6 BMI Classification: Obese - NPO >8 hours - Is Patient ?: No Home Medications and Allergies Home Medications: Ambulatory Orders Albuterol [Proventil Hfa] 2 puffs INH Q4H PRN 12/07/22 Lansoprazole [Prevacid] 30 mg PO QDAC 12/07/22 hydrOXYzine HCL [Hydroxyzine HCl] 25 mg PO DAILY PRN 12/07/22 ondansetron HCL [Ondansetron HCl] 8 mg PO Q8H PRN 12/07/22 Active Medications Acetaminophen (Acetaminophen 500 Mg Tablet) 500 mg PO Q4HR PRN PRN Reason: PAIN 1-4 Last Admin: 12/08/22 16:08 Dose: 500 mg Albuterol (Albuterol Neb 2.5 Mg/3 Ml) 2.5 mg INH RTQ4H PRN PRN Reason: Wheezing Alcohol (Ethyl Alcohol 62% Swab Ampule) 1 amp ANG BID [facility] Last Admin: 12/10/22 08:29 Dose: 1 amp Aripiprazole (Aripiprazole 5 Mg Tablet) 20 mg PO DAILY [facility] Last Admin: 12/10/22 08:31 Dose: 20 mg Bupropion HCl (Bupropion Xl 150 Mg Tablet) 150 mg PO DAILY [facility] Last Admin: 12/10/22 08:29 Dose: 150 mg Citalopram Hydrobromide (Citalopram 10 Mg Tablet) 10 mg PO DAILY [facility] Last Admin: 12/10/22 08:29 Dose: 10 mg Hydroxyzine Pamoate (Hydroxyzine Pamoate 25 Mg Capsule) 25 mg PO DAILY PRN PRN Reason: ITCHING Last Admin: 12/09/22 08:03 Dose: 25 mg Meloxicam (Meloxicam 7.5 Mg Tablet) 15 mg PO DAILY [facility] Last Admin: 12/10/22 08:30 Dose: 15 mg Multi-Ingredient Ointment (Zinc Oxide 20% Oint 30 Gm Tube) 1 applic TOP PRN PRN PRN Reason: Skin Care Last Admin: 12/08/22 15:00 Dose: 1 applic Ondansetron HCl (Ondansetron 4 Mg/2 Ml Vial) 4 mg IVP Q6HR PRN PRN Reason: Nausea / Vomiting Last Admin: 12/10/22 01:24 Dose: 4 mg Pantoprazole Sodium (Pantoprazole 40 Mg Tablet) 40 mg PO QDAC [facility] Last Admin: 12/10/22 05:09 Dose: 40 mg Propranolol HCl (Propranolol 40 Mg Tablet) 20 mg PO TID [facility] Last Admin: 12/10/22 14:49 Dose: 20 mg Sodium Chloride (Sodium Chloride Flush 0.9% 10 Ml Syringe) 10 ml IVP PRN PRN PRN Reason: NEEDED PER PROVIDER ORDERS Last Admin: 12/09/22 10:35 Dose: 10 ml Solifenacin (Solifenacin Succinate 5 Mg Tablet) 10 mg PO DAILY [facility] Last Admin: 12/10/22 08:29 Dose: 10 mg Zinc Oxide (Cod Liver Oil/Zinc Oxide 113 Gm Tube) 113 gm TOP PRN PRN PRN Reason: Skin Care Last Admin: 12/08/22 21:16 Dose: 113 gm Propranolol [Inderal] 20 mg PO TID 04/27/13 Enalapril [Vasotec] 5 mg ORAL BID 05/14/14 Citalopram Hydrobromide [Celexa] 10 mg PO DAILY 08/22/16 Oxybutynin Chloride [Ditropan Xl] 10 mg PO DAILY 01/23/17 ARIPiprazole [Abilify] 20 mg PO DAILY 08/28/17 Meloxicam [Mobic] 15 mg PO DAILY 02/16/21 buPROPion [Wellbutrin Xl] 150 mg PO DAILY 02/16/21 Albuterol [Proventil Hfa] 2 puffs INH Q4H PRN 12/07/22 Lansoprazole [Prevacid] 30 mg PO QDAC 12/07/22 hydrOXYzine HCL [Hydroxyzine HCl] 25 mg PO DAILY PRN 12/07/22 ondansetron HCL [Ondansetron HCl] 8 mg PO Q8H PRN 12/07/22 Allergies/Adverse Reactions: Allergies Allergy/AdvReac Type Severity Reaction Status Date / Time phenazopyridine Allergy Unknown Verified 11/17/22 16:53 [From Pyridium] paroxetine HCl * [From Paxil] AdvReac Intermediate Emesis Verified 11/17/22 16:53 codeine [Codeine] AdvReac Pass Out Verified 11/17/22 16:53 Anes History & Medical History - Anesthetic History Anesthesia Complications: reports: No previous complications - Medical History Cardiovascular: reports: Hypertension Pulmonary: reports: Asthma, Other Gastrointestinal: reports: GERD Urinary: reports: Indwelling catheter, Kidney stones Neuro: reports: Cerebral palsy Musculoskeletal: reports: Osteoarthritis, Other Endocrine/Autoimmune: reports: Other Blood Disorders: reports: None Skin: reports: Psoriasis Smoking Status: Never smoker Psychosocial: reports: Other (Bipolar) History of Cancer?: No - Surgical History General: reports: Hiatal hernia repair, EGD Urologic: reports: Kidney stents Gynecologic: reports: section, Hysterectomy Orthopedic: reports: Other Exam General: Alert, Oriented x3, Cooperative, No acute distress Dental: Other (edentulous) Mouth Openin Fingerbreadth Neck Mobility: Normal Mallampati classification: III Thyromental Distance: 4-6 cm Mental/Cognitive Status: Alert/Oriented X3, Normal for patient Plan Anesthesia Type: General, Total IV Consent for Procedure(s) Verified and Reviewed: Yes Code Status: Attempt Resuscitation ASA classification: 3-Severe systemic disease Is this case an emergency?: No
[2022-12-10] MEDS ORDERED: PROPOFOL 500 MG/50 ML 500 MG/50 ML VIAL ONE (16:06)
[2022-12-10] MEDS ORDERED: MIDAZOLAM 2 MG/2 ML VIAL ONE (16:10)
[2022-12-10] MEDS ORDERED: PROPOFOL 200 MG/20 ML VIAL IVP ONE (17:27)
[2022-12-10] MEDS ORDERED: LABETALOL 5 MG/1 ML 20 ML MDV ONE (17:30)
--- NOTE | 2022-12-10 17:49 | Discharge Plan ---
Discharge Plan Problem Reviewed?: Yes Disposition: 06 Home Health Service Condition: Good Diet: Regular Activity Restrictions: No Restrictions Shower Restrictions: No Driving Restrictions: No Assistance Devices: Wheelchair Instruction Topics: Colonoscopy, Endoscopy Upper GI No Smoking: If you smoke, Please STOP! Call for help. Follow-up with: Wil Gandhi MD [Provider Admit Priv/Credential] -
--- NOTE | 2022-12-10 17:53 | DISCHARGE SUMMARY ---
"Discharge Summary Admit Date: 12/07/22 Discharge Date: 12/10/22 Discharging Provider: Dr. Gandhi Primary Care Provider: Dr. Hill Code Status: Attempt Resuscitation Condition at Discharge: Good Discharge Disposition: Home Health Service - DIAGNOSES Admission Diagnoses: 1. Anemia 2. Positive cologuard 3. nausea 4. cerebral palsy Discharge Diagnoses with Status of Each Condition: 1. colon polyps, removed 2. nausea, stable 3. cerebral palsy, stable - HPI History of Present Illness: Patient with positive cologuard test and chronic nausea. She was admitted for bowel prep and endoscopy. - CONSULTS | PROCEDURES Consultations: none Procedures: EGD with biopsy, colonoscopy with biopsy - HOSPITAL COURSE Hospital Course: The patient was admitted and took Miralax bowel prep. Her prep was not adequate after two days, so a third day of prep was done. While this was frustrating for the patient, she tolerated it well. On HD #4, she underwent upper and lower endoscopy. Polyps were found and removed. Pathology pending. Patient's diet was advanced after her procedure and she was discharged home with her caretakers. My office will call the patient when her pathology results are available. She may follow up with me as needed. - ALLERGIES Allergies/Adverse Reactions: Allergies Allergy/AdvReac Type Severity Reaction Status Date / Time phenazopyridine Allergy Unknown Verified 11/17/22 16:53 [From Pyridium] paroxetine HCl * [From Paxil] AdvReac Intermediate Emesis Verified 11/17/22 16:53 codeine [Codeine] AdvReac Pass Out Verified 11/17/22 16:53 - MEDICATIONS Home Medications: Ambulatory Orders Medication Instructions Recorded Confirmed Propranolol [Inderal] 20 mg PO TID 04/27/13 12/07/22 Enalapril [Vasotec] 5 mg ORAL BID 05/14/14 12/07/22 Citalopram Hydrobromide [Celexa] 10 mg PO DAILY 08/22/16 12/07/22 Oxybutynin Chloride [Ditropan Xl] 10 mg PO DAILY 01/23/17 12/07/22 ARIPiprazole [Abilify] 20 mg PO DAILY 08/28/17 12/07/22 Meloxicam [Mobic] 15 mg PO DAILY 02/16/21 12/07/22 buPROPion [Wellbutrin Xl] 150 mg PO DAILY 02/16/21 12/07/22 Albuterol [Proventil Hfa] 2 puffs INH Q4H PRN 12/07/22 12/07/22 Lansoprazole [Prevacid] 30 mg PO QDAC 12/07/22 12/07/22 hydrOXYzine HCL [Hydroxyzine HCl] 25 mg PO DAILY PRN 12/07/22 12/07/22 ondansetron HCL [Ondansetron HCl] 8 mg PO Q8H PRN 12/07/22 12/07/22 Acetaminophen [Tylenol] 500 mg PO Q4HR PRN tab 12/10/22 Cod Liver Oil/Zinc Oxide [Desitin] 113 gm TOP PRN PRN each 12/10/22"
[2022-12-10] MEDS ORDERED: lisinopriL 20 MG TABLET PO ONE (18:45)
[2022-12-10 20:45] VITALS: BP 100/63
--- NOTE | 2022-12-11 01:42 | ANESTHESIA POST OP EVALUATION ---
Anesthesia Post Eval - Post Anesthesia Eval Vitals: Last Vital Signs Temp 36.3 C L 12/10/22 20:43 Pulse 72 12/10/22 20:43 Resp 20 12/10/22 20:43 BP 100/63 12/10/22 20:43 Pulse Ox 95 12/10/22 20:43 O2 Flow Rate CV Function Including HR & BP: Stable Pain Control: Satisfactory Nausea & Vomiting: Negative Mental Status: Baseline Respiratory Status: Airway Patent Hydration Status: Satisfactory Anesthesia Complications: None
== END 2022-12-10 23:09 | disposition home health service (06) | DRG 395 ==
LOC: MS2 07:25
PROVIDERS: ADMIT Surgery; ATTEND Surgery
PROC: 0DB48ZX Excision of Esophagogastric Junction, Via Natural or Artificial Opening Endoscopic, Diagnostic (ICD-10-PCS; 2022-12-10)
PROC: 0DB78ZX Excision of Stomach, Pylorus, Via Natural or Artificial Opening Endoscopic, Diagnostic (ICD-10-PCS; 2022-12-10)
PROC: 0DBM8ZZ Excision of Descending Colon, Via Natural or Artificial Opening Endoscopic (ICD-10-PCS; principal; 2022-12-10 15:30)
PROC: 0DBL8ZZ Excision of Transverse Colon, Via Natural or Artificial Opening Endoscopic (ICD-10-PCS; 2022-12-10 15:30)
DX: D12.4 Benign neoplasm of descending colon (principal); D12.3 Benign neoplasm of transverse colon; G80.9 Cerebral palsy, unspecified; R11.0 Nausea; K59.09 Other constipation; Z99.3 Dependence on wheelchair; K21.9 Gastro-esophageal reflux disease without esophagitis; F31.9 Bipolar disorder, unspecified; J45.909 Unspecified asthma, uncomplicated; R19.5 Other fecal abnormalities; Z87.442 Personal history of urinary calculi; R63.4 Abnormal weight loss; Z68.32 Body mass index [BMI] 32.0-32.9, adult; Z96.0 Presence of urogenital implants; K31.7 Polyp of stomach and duodenum; E66.9 Obesity, unspecified; D50.9 Iron deficiency anemia, unspecified; Z73.6 Limitation of activities due to disability; I11.9 Hypertensive heart disease without heart failure
CPT/HCPCS: A9270 ×33

== ENCOUNTER 2023-02-02 20:36 | Outpatient (CLI) | payer MEDICARE, MEDICAID | END 2023-02-02 23:59 | disposition critical access hospital (66) | LOC: EMS 20:36 | DX: T83.038A Leakage of other urinary catheter, initial encounter (principal); Z99.3 Dependence on wheelchair | CPT/HCPCS: A0425; A0429 ==

== ENCOUNTER 2023-02-02 21:01 | Emergency (ER) | payer MEDICARE, MEDICAID ==
[2023-02-02] MEDS ORDERED: LIDOCAINE 2% URO-JET 5 ML SYRINGE UR STA (21:03)
--- NOTE | 2023-02-02 21:07 | ED Physician Documentation ---
PD HPI FEMALE - Stated complaint Stated Complaint: CATH ISSUES - History obtained from History obtained from: Patient - History of Present Illness Timing - onset: Today Timing - duration: Minutes Timing - details: Abrupt onset, Still present Associated symptoms: Other (urine spraying out around the suprapubic catheter) Contributing factors: Other (Cerebral palsy with neurogenic bladder and suprapubic catheter.) Similar symptoms before: Diagnosis (cath dysfuction and UTI) Recently seen: Not recently seen - Additional information Additional information: Lidia Haas is a 52-year-old female with a history of cerebral palsy who has a neurogenic bladder and a suprapubic catheter in place. Today her suprapubic cath became clogged and urine sprayed out from around the margins of the catheter. She has had this happen to her previously when she has had infection and she has called the ambulance to come to the emergency department for evaluation. Review of Systems Constitutional: denies: Fever, Chills Eyes: denies: Decreased vision Ears: denies: Ear pain Nose: denies: Rhinorrhea / runny nose, Congestion Throat: denies: Sore throat Cardiac: denies: Chest pain / pressure, Palpitations Respiratory: denies: Dyspnea, Cough GI: reports: Nausea (with reflux symptoms this is usual for patient). 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 : Indwelling catheter, Kidney stones HEENT: Chronic vision loss Psych: Depression, Anxiety, Bipolar disorder, Post traumatic stress disorder Musculoskeletal: Osteoarthritis, Other Derm: Psoriasis - Past Surgical History Past Surgical History: Yes General: Hiatal hernia repair, EGD Ortho: Other /OBIEE REPORT DEVELOPER: section, Hysterectomy - Present Medications Home Medications: Ambulatory Orders Medication Instructions Recorded Confirmed Propranolol [Inderal] 20 mg PO TID 04/27/13 12/07/22 Enalapril [Vasotec] 5 mg ORAL BID 05/14/14 12/07/22 Citalopram Hydrobromide [Celexa] 10 mg PO DAILY 08/22/16 12/07/22 oxyBUTYnin chloride [Ditropan Xl] 10 mg PO DAILY 01/23/17 12/07/22 ARIPiprazole [Abilify] 20 mg PO DAILY 08/28/17 12/07/22 Meloxicam [Mobic] 15 mg PO DAILY 02/16/21 12/07/22 buPROPion [Wellbutrin Xl] 150 mg PO DAILY 02/16/21 12/07/22 Albuterol [Proventil Hfa] 2 puffs INH Q4H PRN 12/07/22 12/07/22 Lansoprazole [Prevacid] 30 mg PO QDAC 12/07/22 12/07/22 hydrOXYzine HCL [Hydroxyzine HCl] 25 mg PO DAILY PRN 12/07/22 12/07/22 ondansetron HCL [Ondansetron HCl] 8 mg PO Q8H PRN 12/07/22 12/07/22 Acetaminophen [Tylenol] 500 mg PO Q4HR PRN tab 12/10/22 Cod Liver Oil/Zinc Oxide [Desitin] 113 gm TOP PRN PRN each 12/10/22 cephALEXin [Keflex] 500 mg PO Q6H #28 cap 02/02/23 - Allergies Allergies/Adverse Reactions: Allergies Allergy/AdvReac Type Severity Reaction Status Date / Time phenazopyridine Allergy Unknown Verified 02/02/23 21:02 [From Pyridium] paroxetine HCl * [From Paxil] AdvReac Intermediate Emesis Verified 02/02/23 21:02 codeine [Codeine] AdvReac Pass Out Verified 02/02/23 21:02 - Social History Does the pt smoke?: No Smoking Status: Never smoker Does the pt drink ETOH?: No Does the pt have substance abuse?: No - Immunizations Immunizations are current?: Yes - POLST Patient has POLST: No PD ED PE NORMAL - Vitals Vital signs reviewed: Yes (hypertensive ) - General General: Alert and oriented X 3, No acute distress, Well developed/nourished - HEENT HEENT: Atraumatic, PERRL, EOMI - Respiratory Respiratory: No respiratory distress - Abdomen Abdomen: Soft, Non tender - Back Back: No CVA TTP, No spinal TTP - Derm Derm: Normal color, Warm and dry, No rash - Extremities Extremities: No edema, Other (typical spasticity of UE with cerebral palsy) - Neuro Neuro: Alert and oriented X 3, skip load driver 2-12 intact, Normal speech Eye Opening: Spontaneous Motor: Obeys Commands Verbal: Oriented GCS Score: 15 - Psych Psych: Normal mood, Normal affect Results - Vitals Vitals: Vital Signs - 24 hr 02/02/23 21:02 Temperature 37.4 C Heart Rate 86 Respiratory 18 Rate Blood Pressure 146/90 H O2 Saturation 94 Oxygen O2 Source Room air - Labs Labs: Laboratory Tests 02/02/23 21:24 Urine Color YELLOW Urine Clarity HAZY Urine pH 7.5 Ur Specific [place] 1.015 Urine Protein TRACE Urine Glucose (UA) NEGATIVE Urine Ketones NEGATIVE Urine Occult Blood SMALL H Urine Nitrite NEGATIVE Urine Bilirubin NEGATIVE Urine Urobilinogen 0.2 (NORMAL) Ur Leukocyte Esterase MODERATE H Urine RBC TNTC H Urine WBC >25 H Ur Squamous Epith Cells RARE Squamous Amorphous Sediment Few Urine Bacteria Many H Ur Microscopic Review INDICATED Urine Culture Comments INDICATED PD Medical Decision Making - ED course Complexity details: considered differential, d/w patient Reviewed Lab Results: We reviewed a urinalysis which showed a urine with normal specific gravity small occult blood moderate leukocyte Estrace too numerous to count red blood cells and greater than 25 white blood cells per high-powered field + many bacteria. The specimen made the grade for culture. My interpretation of this urine from a newly placed catheter is: there are signs of infection. The patient indicates that when her catheter has been clogged she has had infection that required treatment. I interpret this as symptoms for the patient and we will treat her urinary tract infection. ED course: Lidia showed up to the emergency department this evening with a clogged catheter and urine sprayed out around the edge of the catheter similar to what she has had previously when she has had infection. She notes some cloudiness to the urine that is in the tube. Her dog would not get up with her to go out and walk and this is happened previously when she has had infection. I figured the dog must know best, and so we treated her with ceftriaxone. She has had complication of infections including sepsis and her house is described by medics as immaculate and she is well cared for by caregivers. I do not suspect this is "just colonization" and to avoid potential complication we will treat. Departure - Departure Disposition: 01 Home, Self Care Clinical Impression: Neurogenic bladder, Chronic indwelling Epps catheter Urinary tract infection Qualifiers: Urinary tract infection type: catheter-associated UTI Indwelling urinary catheter type: cystostomy catheter Encounter type: initial encounter Qualified Code(s): T83.510A - Infection and inflammatory reaction due to cystostomy catheter, initial encounter Blocked suprapubic catheter Qualifiers: Encounter type: initial encounter Qualified Code(s): T83.090A - Other mechanical complication of cystostomy catheter, initial encounter Condition: Stable Instructions: ED UTI Cystitis Female Follow-Up: Bennie Hill MD [Provider Admit Priv/Credential] - Prescriptions: cephALEXin [Keflex] 500 mg PO Q6H #28 cap Comments: Lidia today looks like your suprapubic catheter was clogged and this is likely related to infection. We have given you an injection of the ceftriaxone and you will not need to start antibiotic until tomorrow. I have E scribed Keflex to the [facility] pharmacy. Discharge Date/Time: 02/02/23 21:36
[2023-02-02 21:09] VITALS: BP 146/90
[2023-02-02] MEDS ORDERED: LIDOCAINE 1% 2 ML VIAL MC ONE (21:23)
[2023-02-02] MEDS ORDERED: cefTRIAXone 1 GM VIAL IM STA (21:23)
[2023-02-02 21:30] LABS: BILIRUBIN,URINE NEGATIVE (NEGATIVE); GLUCOSE, URINE (UA) NEGATIVE (NEGATIVE); KETONES,URINE (UA) NEGATIVE (NEGATIVE); LEUKOCYTE ESTERASE, URINE MODERATE (NEGATIVE); NITRITE,URINE NEGATIVE (NEGATIVE); OCCULT BLOOD,URINE SMALL (NEGATIVE); PH,URINE 7.5 PH (5.0-7.5); PROTEIN,URINE TRACE mg/dL (NEGATIVE); UROBILINOGEN,URINE 0.2 (NORMAL) E.U./dL (NORMAL)
[2023-02-02 21:31] LABS: CLARITY,URINE HAZY (CLEAR)
[2023-02-02 21:56] LABS: BACTERIA,URINE Many /HPF (None Seen); RBC,URINE TNTC /HPF (0-5); SQUAMOUS EPITHELIAL CELL,UR RARE Squamous (<= Few); WBC,URINE >25 /HPF (0-5)
[2023-02-02 21:57] LABS: AMORPHOUS SEDIMENT,UR Few /LPF
== END 2023-02-02 21:36 | disposition home or self-care (01) ==
LOC: EDUNIT# → ED 21:01
DX: T83.510A Infection and inflammatory reaction due to cystostomy catheter, initial encounter (principal); N31.9 Neuromuscular dysfunction of bladder, unspecified; T83.090A Other mechanical complication of cystostomy catheter, initial encounter
CPT/HCPCS: 81001; 81003; 87077; 87086; 87181; 96372; 99284

== ENCOUNTER 2023-02-02 21:40 | Outpatient (CLI) | payer MEDICARE, MEDICAID | END 2023-02-02 23:59 | disposition home or self-care (01) | LOC: EMS 21:40 | PROVIDERS: ATTEND Emergency Medicine | DX: G80.9 Cerebral palsy, unspecified (principal); Z74.01 Bed confinement status | CPT/HCPCS: A0425; A0428 ==

== ENCOUNTER 2023-02-05 12:25 | Outpatient (CLI) | payer MEDICARE, MEDICAID | END 2023-02-05 23:59 | disposition critical access hospital (66) | LOC: EMS 12:25 | DX: R06.00 Dyspnea, unspecified (principal); R11.2 Nausea with vomiting, unspecified; R05.9 Cough, unspecified | CPT/HCPCS: A0425; A0427 ==

== ENCOUNTER 2023-02-05 12:48 | Emergency (ER) | payer MEDICARE, MEDICAID ==
[2023-02-05] MEDS ORDERED: GLUCAGON 2 MG in DEXTROSE 5% 45 ML IV STA (12:55)
[2023-02-05] MEDS ORDERED: IPRATROPIUM/ALBUTEROL 3 ML NEB INH STA (12:56)
--- NOTE | 2023-02-05 12:59 | ED Physician Documentation ---
History of Present Illness - Stated complaint Stated Complaint: SOA - Additonal information Additional information: 52-year-old female who has past medical history most significant for asthma, cerebral palsy as well as chronic indwelling Epps catheter presents to the emergency department for evaluation of sudden onset shortness of air. Patient states that she was eating when she began to feel like something was stuck in her throat. She felt a sensation of spasm in her esophagus. She was having difficulty breathing. 911 was summoned. Paramedics informed me that she was in obvious respiratory distress. She however was saturating 94% on room air. They found that she had diminished breath sounds in the lower bases. She was given a DuoNeb which improved her oxygenation to 100%. Shortly thereafter the patient did have a small amount of vomiting. On presentation to the emergency department the patient is alert and maintaining her airway though she has a hoarse voice and per the nursing staff who is familiar with the patient she is having a difficult time speaking. Review of Systems Constitutional: denies: Fever Nose: reports: Reviewed and negative Throat: reports: Reviewed and negative Respiratory: reports: Dyspnea, Cough GI: reports: Reviewed and negative : reports: Reviewed and negative Skin: reports: Reviewed and negative PD PAST MEDICAL HISTORY - Past Medical History Cardiovascular: Hypertension Respiratory: Asthma, Other Neuro: Cerebral palsy Endocrine/Autoimmune: Other GI: GERD PEDIATRIC CLINICAL NURSE SPECIALIST: None : Indwelling catheter, Kidney stones HEENT: Chronic vision loss Psych: Depression, Anxiety, Bipolar disorder, Post traumatic stress disorder Musculoskeletal: Osteoarthritis, Other Derm: Psoriasis - Past Surgical History Past Surgical History: Yes General: Hiatal hernia repair, EGD Ortho: Other /PEDIATRIC CLINICAL NURSE SPECIALIST: section, Hysterectomy - Present Medications Home Medications: Ambulatory Orders Medication Instructions Recorded Confirmed Propranolol [Inderal] 20 mg PO TID 04/27/13 12/07/22 Enalapril [Vasotec] 5 mg ORAL BID 05/14/14 12/07/22 Citalopram Hydrobromide [Celexa] 10 mg PO DAILY 08/22/16 12/07/22 oxyBUTYnin chloride [Ditropan Xl] 10 mg PO DAILY 01/23/17 12/07/22 ARIPiprazole [Abilify] 20 mg PO DAILY 08/28/17 12/07/22 Meloxicam [Mobic] 15 mg PO DAILY 02/16/21 12/07/22 buPROPion [Wellbutrin Xl] 150 mg PO DAILY 02/16/21 12/07/22 Albuterol [Proventil Hfa] 2 puffs INH Q4H PRN 12/07/22 12/07/22 Lansoprazole [Prevacid] 30 mg PO QDAC 12/07/22 12/07/22 hydrOXYzine HCL [Hydroxyzine HCl] 25 mg PO DAILY PRN 12/07/22 12/07/22 ondansetron HCL [Ondansetron HCl] 8 mg PO Q8H PRN 12/07/22 12/07/22 Acetaminophen [Tylenol] 500 mg PO Q4HR PRN tab 12/10/22 Cod Liver Oil/Zinc Oxide [Desitin] 113 gm TOP PRN PRN each 12/10/22 cephALEXin [Keflex] 500 mg PO Q6H #28 cap 02/02/23 - Allergies Allergies/Adverse Reactions: Allergies Allergy/AdvReac Type Severity Reaction Status Date / Time phenazopyridine Allergy Unknown Verified 02/05/23 13:02 [From Pyridium] paroxetine HCl * [From Paxil] AdvReac Intermediate Emesis Verified 02/05/23 13:02 codeine [Codeine] AdvReac Pass Out Verified 02/05/23 13:02 - Social History Does the pt smoke?: No Smoking Status: Never smoker Does the pt drink ETOH?: No Does the pt have substance abuse?: No - Immunizations Immunizations are current?: Yes - POLST Patient has POLST: No PD ED PE NORMAL - General General: Alert and oriented X 3. No: No acute distress (Having difficulty speaking. No obvious respiratory distress) - HEENT HEENT: Atraumatic, Moist mucous membranes, Pharynx benign - Neck Neck: Supple, no meningeal sign - Cardiac Cardiac: RRR, No murmur - Respiratory Respiratory: No respiratory distress. No: Clear bilaterally (Diffuse scattered expiratory wheeze and rhonchi. Diminished in the right lower lobe) - Abdomen Abdomen: Normal bowel sounds, Soft, Non tender, Other (Suprapubic catheter seen exiting the anterior abdomen draining clear yellow urine into a Epps) - Back Back: No CVA TTP - Derm Derm: Normal color, Warm and dry - Extremities Extremities: No deformity - Neuro Neuro: Alert and oriented X 3, carton stapler 2-12 intact Eye Opening: Spontaneous Motor: Obeys Commands Verbal: Oriented GCS Score: 15 Results - Vitals Vitals: Vital Signs - 24 hr 02/05/23 02/05/23 02/05/23 12:56 13:02 13:05 Heart Rate 101 H 102 H 96 Respiratory 15 18 19 Rate Blood Pressure 161/104 H 169/114 H O2 Saturation 95 95 02/05/23 13:32 Heart Rate 103 H Respiratory 20 Rate Blood Pressure 161/110 H O2 Saturation 96 Oxygen O2 Source Room air - Labs Labs: Laboratory Tests 02/05/23 02/05/23 13:16 13:16 WBC 11.9 H RBC 4.54 Hgb 13.5 Hct 41.6 MCV 91.6 MCH 29.7 MCHC 32.5 RDW 13.1 Plt Count 235 MPV 10.1 Neut # (Auto) 10.1 H Lymph # (Auto) 0.8 L [place] # (Auto) 0.8 Eos # (Auto) 0.2 Baso # (Auto) 0.1 Absolute Nucleated RBC 0.00 Nucleated RBC % 0.0 Sodium 130 L Potassium 4.3 Chloride 99 L Carbon Dioxide 22 Anion Gap 9.0 BUN 18 Creatinine 0.7 Estimated GFR (MDRD) 88 L Glucose 118 H Calcium 8.8 Total Bilirubin 0.5 AST 24 ALT 19 Alkaline Phosphatase 73 Total Protein 7.9 Albumin 3.8 Globulin 4.1 Albumin/Globulin Ratio 0.9 L Lipase 27 - Rads (name of study) CXR Relevant Findings:: Final report received (No acute cardiopulmonary process) PD Medical Decision Making - ED course Complexity details: reviewed results, re-evaluated patient, considered differential, d/w patient ED course: 52 old female presents emergency department for evaluation for evaluation of shortness of air and difficulty swallowing. States that she been eating and was taking a Keflex pill when she began to feel sensation of her esophagus spasming making it difficult to breathe. EMS administered a DuoNeb which improved the breathing but on arrival to the emergency department she was still having difficulty swallowing and reporting a spasm sensation in her throat. We did obtain a single view chest x-ray that showed no findings of pneumonia. Patient was given a single dose of glucagon and on reevaluation is now tolerating sips of clear liquids though she continues to endorse some pain with swallow. Clinically it is possible that she had an esophageal foreign body that is resolved. I am encouraging the patient to follow closely with her PCP for further evaluation. While in the emergency department we did obtain a CBC and electrolytes and per my interpretation there were no acute worrisome findings. Departure - Departure Disposition: 01 Home, Self Care Clinical Impression: Difficulty swallowing Qualifiers: Dysphagia type: unspecified Qualified Code(s): R13.10 - Dysphagia, unspecified Condition: Stable Comments: Lidia you came to the emergency department today because when you were taking your antibiotics and eating you began to have spasms in your esophagus which made it difficult for you to breathe. Here in the emergency department your chest x-ray did not show any signs of pneumonia. By the time he arrived to the emergency department you were breathing better but still having difficulty talking. We gave you another nebulizer and then a dose of a medication called Glucagon. After you receive this medication you were then able to sip clear liquids easily though it was still somewhat uncomfortable. Your breathing appears normal now and you are swallowing well. It is unclear why some people develop this sensation but if it occurs again you should return to the ER. I do recommend you discuss this ED visit closely with your primary care doctor as you may need referral to an ear nose throat doctor for further evaluation
[2023-02-05 13:20] LABS: BASOPHILS # (AUTO) 0.1 10^3/uL (0.0-0.1); BASOPHILS % (AUTO) 0.4 %; EOSINOPHILS # (AUTO) 0.2 10^3/uL (0.0-0.7); EOSINOPHILS % (AUTO) 1.3 %; HCT - HEMATOCRIT 41.6 % (37.0-47.0); HGB - HEMOGLOBIN 13.5 g/dL (12.0-16.0); LYMPHOCYTES # (AUTO) 0.8 10^3/uL (1.5-3.5); LYMPHOCYTES % (AUTO) 6.5 %; MEAN CORPUSCULAR HEMOGLOBIN 29.7 pg (27.0-31.0); MEAN CORPUSCULAR HGB CONC 32.5 g/dL (32.0-36.0); MEAN CORPUSCULAR VOLUME 91.6 fL (81.0-99.0); MEAN PLATELET VOLUME 10.1 fL (7.9-10.8); MONOCYTES # (AUTO) 0.8 10^3/uL (0.0-1.0); NEUTROPHILS # (AUTO) 10.1 10^3/uL (1.5-6.6); NEUTROPHILS % (AUTO) 84.5 %; PLT - PLATELET COUNT 235 10^3/uL (130-450); RED BLOOD COUNT 4.54 10^6/uL (4.20-5.40); RED CELL DISTRIBUTION WIDTH 13.1 % (12.0-15.0); WHITE BLOOD COUNT 11.9 x10^3/uL (4.8-10.8)
--- NOTE | 2023-02-05 13:37 | XRAY Report ---
PROCEDURE: Chest 1 View X-Ray INDICATIONS: cough, SOA TECHNIQUE: One view of the chest was acquired. COMPARISON: Chest x-ray 05/09/2022 FINDINGS: Surgical changes and devices: None. Lungs and pleura: No pleural effusions or pneumothorax. Lungs are clear. Mediastinum: Mediastinal contours appear normal. Heart size is normal. Bones and chest wall: No suspicious bony lesions. Overlying soft tissues appear unremarkable. IMPRESSION: No acute cardiopulmonary process. Reviewed by: Christine Mantilla MD on 02/05/2023 1:36 PM PDT Approved by: Christine Mantilla MD on 02/05/2023 1:36 PM PDT Station ID: [id number]
[2023-02-05 13:52] LABS: ALBUMIN 3.8 g/dL (3.2-5.5); ALBUMIN/GLOBULIN RATIO 0.9 (1.0-2.2); BILIRUBIN,TOTAL 0.5 mg/dL (0.2-1.0); CALCIUM 8.8 mg/dL (8.5-10.3); CREATININE 0.7 mg/dL (0.4-1.0); POTASSIUM 4.3 mmol/L (3.5-5.0); TOTAL PROTEIN 7.9 g/dL (6.7-8.2)
[2023-02-05 15:19] VITALS: BP 114/72
== END 2023-02-05 15:27 | disposition home or self-care (01) ==
LOC: EDUNIT# → ED 12:48
DX: R13.10 Dysphagia, unspecified (principal); K22.4 Dyskinesia of esophagus; R06.00 Dyspnea, unspecified
CPT/HCPCS: 36415; 80048; 80053; 83690; 85025; 94640; 96365; 96366; 99285

== ENCOUNTER 2023-02-05 15:30 | Outpatient (CLI) | payer MEDICARE, MEDICAID | END 2023-02-05 23:59 | disposition home or self-care (01) | LOC: EMS 15:30 | PROVIDERS: ATTEND Registered Nurse | DX: G80.9 Cerebral palsy, unspecified (principal); Z74.01 Bed confinement status | CPT/HCPCS: A0425; A0428 ==

== ENCOUNTER 2023-02-05 19:34 | Outpatient (CLI) | payer MEDICARE, MEDICAID | END 2023-02-05 23:59 | disposition critical access hospital (66) | LOC: EMS 19:34 | DX: T17.998A Other foreign object in respiratory tract, part unspecified causing other injury, initial encounter (principal); R11.10 Vomiting, unspecified; Z99.3 Dependence on wheelchair | CPT/HCPCS: A0425; A0429 ==

== ENCOUNTER 2023-02-05 19:37 | Observation (INO) | payer MEDICARE, MEDICAID ==
[2023-02-05] MEDS ORDERED: cefTRIAXone 1 GM VIAL IVP ONE (20:52)
[2023-02-05 20:57] LABS: BASOPHILS % (AUTO) 0.2 %; EOSINOPHILS % (AUTO) 0.2 %; HCT - HEMATOCRIT 38.2 % (37.0-47.0); HGB - HEMOGLOBIN 12.9 g/dL (12.0-16.0); LYMPHOCYTES # (AUTO) 0.9 10^3/uL (1.5-3.5); LYMPHOCYTES % (AUTO) 6.8 %; MEAN CORPUSCULAR HEMOGLOBIN 29.7 pg (27.0-31.0); MEAN CORPUSCULAR HGB CONC 33.8 g/dL (32.0-36.0); MEAN CORPUSCULAR VOLUME 87.8 fL (81.0-99.0); MEAN PLATELET VOLUME 9.7 fL (7.9-10.8); NEUTROPHILS # (AUTO) 11.9 10^3/uL (1.5-6.6); NEUTROPHILS % (AUTO) 85.6 %; PLT - PLATELET COUNT 256 10^3/uL (130-450); RED BLOOD COUNT 4.35 10^6/uL (4.20-5.40); RED CELL DISTRIBUTION WIDTH 12.9 % (12.0-15.0); WHITE BLOOD COUNT 13.9 x10^3/uL (4.8-10.8)
[2023-02-05] MEDS ORDERED: LORazepam 2 MG/ML VIAL IVP ONE (21:01)
[2023-02-05 21:05] LABS: CALCIUM 8.9 mg/dL (8.5-10.3); CREATININE 0.7 mg/dL (0.4-1.0)
[2023-02-05] MEDS ORDERED: fentaNYL 100 MCG/2 ML VIAL IVP ONE (23:51)
[2023-02-05] MEDS ORDERED: SUCCINYLCHOLINE 200 MG/10 ML VIAL IVP ONE (23:51)
[2023-02-05] MEDS ORDERED: PROPOFOL 200 MG/20 ML VIAL IVP ONE (23:51)
[2023-02-05] MEDS ORDERED: ePHEDrine 50 MG/ML VIAL IVP ONE (23:51)
[2023-02-05] MEDS ORDERED: MIDAZOLAM 2 MG/2 ML VIAL IVP ONE (23:51)
[2023-02-05] MEDS ORDERED: SUGAMMADEX 200 MG/2 ML VIAL IVP ONE (23:51)
[2023-02-06] MEDS ORDERED: ONDANSETRON 4 MG/2 ML VIAL IVP PRN (02:31)
[2023-02-06] MEDS ORDERED: PROMETHAZINE 25 MG/1 ML VIAL IM PRN (02:31)
[2023-02-06] MEDS ORDERED: ACETAMINOPHEN 325 MG TABLET PO PRN (02:31)
[2023-02-06] MEDS ORDERED: SODIUM CHLORIDE FLUSH 0.9% 10 ML SYRINGE IVP PRN (02:31)
[2023-02-06] MEDS ORDERED: SODIUM CHLORIDE 0.9% 500 ML IV ONE (02:34)
--- NOTE | 2023-02-06 02:39 | PROVIDER PROGRESS NOTE ---
Window Shade Ring Coverer Note - Window Shade Ring Coverer Note Window Shade Ring Coverer Note: H&P completed 02/06/2023 0131. please refer to H&P note. Kathy Villegas DO Internal Medicine Sound Tele Window Shade Ring Coverer
[2023-02-06] MEDS ORDERED: ALBUTEROL NEB 2.5 MG/3 ML INH PRN (02:43)
[2023-02-06] MEDS ORDERED: hydrOXYzine PAMOATE 25 MG CAPSULE PO PRN (02:48)
[2023-02-06] MEDS: cephALEXin 250 MG CAPSULE PO SCH ×2 (03:27→09:59)
[2023-02-06] MEDS: PROPRANOLOL 10 MG TABLET PO SCH ×2 (06:50→14:39)
[2023-02-06] MEDS ORDERED: PANTOPRAZOLE 40 MG TABLET PO SCH (07:00)
[2023-02-06] MEDS ORDERED: lisinopriL 20 MG TABLET PO SCH (09:00)
[2023-02-06] MEDS ORDERED: ARIPiprazole 5 MG TABLET PO SCH (09:00)
[2023-02-06] MEDS ORDERED: CITALOPRAM 10 MG TABLET PO SCH (09:00)
[2023-02-06] MEDS ORDERED: SOLIFENACIN SUCCINATE 5 MG TABLET PO SCH (09:00)
[2023-02-06] MEDS: SODIUM CHLORIDE FLUSH 0.9% 10 ML SYRINGE IVP SCH ×2 (10:00→10:13)
--- NOTE | 2023-02-06 10:06 | DISCHARGE SUMMARY ---
"Discharge Summary Admit Date: 02/05/23 Discharge Date: 02/06/23 Discharging Provider: Kathleen Pérez MD Primary Care Provider: Bennie Hill MD Code Status: Attempt Resuscitation Condition at Discharge: Fair Discharge Disposition: 01 Home, Self Care - DIAGNOSES Discharge Diagnoses with Status of Each Condition: 1. Esophageal obstruction due to food impaction 2. UTI 3. Hypertension 4. Major depressive disorder - HPI History of Present Illness: Admitted From:: PACU - History Obtained From Records Reviewed: EMR History obtained from: ED staff, FRENCH WEAVER, Patient, and Surgery Consult Exam Limitations: Tele medicine - History of Present Illness HPI Comment/Other: 52YOF c cerebral palsy, recurrent UTI associated with suprapubic catheter who presents to the ED earlier today complaining of food impaction. Patient had a beef Kebab c vegetables and sudden felt her esophagus spasm with subsequent SOB. Patient immediately noted inability to swallow and EMS was called. Patient was brought into the ED earlier for food impaction and was started on glucagon which improved her sxs. She was able to tolerate liquids before being discharged back home. Patient was also concurrently noted for possible UTI and started on Keflex. Up returning home, patient developed sxs and could not swallow again. She had difficulty drinking water. She returned to the ED. She seen by general surgery and noted to be actively wretching and was taken to OR for EGD and subsequently her food impaction was resolved. Gen surgery felt patient was premature to go home so requested Hospital Medicine to assist with managing patient until able to tolerate oral and safe for discharge. Patient seen in the PACU. She reports food impaction symptoms improved signific antly. She has not attempt po intake. She currently has no abdominal pain. No nausea. - Past Medical History Cardiovascular: reports: Hypertension Respiratory: reports: Asthma, Other Neuro: reports: Cerebral palsy Endocrine/Autoimmune: reports: Other GI: reports: GERD PUBLIC HEALTH AIDES TEACHER: reports: None : reports: Indwelling catheter, Kidney stones HEENT: reports: Chronic vision loss Psych: reports: Depression, Anxiety, Bipolar disorder, Post traumatic stress disorder Musculoskeletal: reports: Osteoarthritis, Other Derm: reports: Psoriasis MRSA Hx?: Yes - Past Surgical History General: reports: Hiatal hernia repair, EGD Ortho: reports: Other /PUBLIC HEALTH AIDES TEACHER: reports: section, Hysterectomy - CONSULTS | PROCEDURES Consultations: General surgery Procedures: EGD - HOSPITAL COURSE Hospital Course: EGD revealed large, 3x1.5x1.5cm piece of steak in esophagus at cricopharyngeus muscle. Successfully removed. Mid esophagus with erosions and esophagitis concerning for candidiasis. Recommend starting PPI and nystatin swish and swallow. General surgery asked us to admit the patient to our service with them consulting for this. This morning she is sleepy, but alert, appropriate. She says mornings are usually bad for her and she is had a very long night. She would like to go home today. The only other issue during her stay was that of hypotension. But this patient has a long record of hypotension as well as hypertension. She takes enalapril 5 mg, and propranolol 20 mg p.o. 3 times daily. There are no specific instructions in the outpatient setting about this. But in reviewing the medical record, she is consistently hypotensive to as low as 80 systolic with her stays. Here she has been 87, 91, 96 systolic. Low urine output off-and-on. She has received a fluid bolus. As such she is being discharged to home. I am asking her to stop her blood pressure medicines. Not clear why she takes the Inderal. Discharge exam is 36.7, heart rate 88, blood pressure 93/53. Facial expressions with slight lipsmacking. Slight dysarthria. But alert, oriented. Neck is supple. Lungs are clear. Regular rate and rhythm. 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 Slight contractures at knees and ankles with evidence of previous surgeries for cord lengthening. Also with contractures of the elbows, wrist. She is a very disheveled malodorous female. Malodorous vaginal discharge that is curd-like, thick and white. In the past she has had problems with skin breakdown. With this admission she has pressure ulcers on the left foot, sacrum. Atrophy of the muscles of arms and legs. Intertriginous david. Coarse upper airway rhonchi but no respiratory distress. She is alert, oriented. Recommendations at discharge her to follow-up her primary care provider. I would then like her to be seen by gynecology for Pap and pelvic. Or her primary care provider office can provide that service for her. She needs to be evaluated for vaginitis. She states that she is certified to receive close to 350 hours of caregiver a month. But the agency has been very short staffed. They are in the process of training new people. So she has not been getting her care as often as she is allowed. This document was made in part using voice recognition software. While efforts are made to proofread this document, sound alike and grammatical errors may occur. - ALLERGIES Allergies/Adverse Reactions: Allergies Allergy/AdvReac Type Severity Reaction Status Date / Time phenazopyridine Allergy Unknown Verified 02/05/23 19:45 [From Pyridium] paroxetine HCl * [From Paxil] AdvReac Intermediate Emesis Verified 02/05/23 19:45 codeine [Codeine] AdvReac Pass Out Verified 02/05/23 19:45 - MEDICATIONS Home Medications: Ambulatory Orders Medication Instructions Recorded Confirmed Propranolol [Inderal] 20 mg PO TID 04/27/13 02/06/23 Enalapril [Vasotec] 5 mg ORAL BID 05/14/14 02/06/23 Citalopram Hydrobromide [Celexa] 10 mg PO DAILY 08/22/16 02/06/23 ARIPiprazole [Abilify] 20 mg PO DAILY 08/28/17 02/06/23 Meloxicam [Mobic] 15 mg PO DAILY 02/16/21 02/06/23 buPROPion [Wellbutrin Xl] 150 mg PO DAILY 02/16/21 02/06/23 Albuterol [Proventil Hfa] 2 puffs INH Q4H PRN 12/07/22 02/06/23 Lansoprazole [Prevacid] 30 mg PO QDAC 12/07/22 02/06/23 hydrOXYzine HCL [Hydroxyzine HCl] 25 mg PO DAILY PRN 12/07/22 02/06/23 ondansetron HCL [Ondansetron HCl] 8 mg PO Q8H PRN 12/07/22 02/06/23 Acetaminophen [Tylenol] 500 mg PO Q4HR PRN tab 12/10/22 02/06/23 Cod Liver Oil/Zinc Oxide [Desitin] 113 gm TOP PRN PRN each 12/10/22 02/06/23 cephALEXin [Keflex] 500 mg PO Q6H #28 cap 02/02/23 02/06/23 Ketoconazole [Nizoral A-D] 1 applic TOP Q3D 02/06/23 02/06/23 Vibegron [Gemtesa] 75 mg PO DAILY 02/06/23 02/06/23"
--- NOTE | 2023-02-06 10:18 | Discharge Plan ---
Discharge Plan Problem Reviewed?: Yes Disposition: Home, Self Care Condition: Fair Diet: Regular Activity Restrictions: Activity as Tolerated Shower Restrictions: No Driving Restrictions: Yes (no driving) Instruction Topics: UTI, Catheter Suprapubic Care Dc Health Concerns: You presented to the emergency room with inability to swallow. Food was stuck in your esophagus. They were able to give you some medicine and what time you felt better and you were sent home. He returned because you continue to have that feeling and this time he went for an esophagogastroduodenoscopy which is in an upper endoscopy. They were able to remove the food bolus and you spent the night making sure that you are staying stable. The only thing we are finding on you is low blood pressure. That is not new for you. We are holding your medicines for blood pressure until your blood pressure comes up. The other thing we found was poor body hygiene. You have numerous areas of skin breakdown. You have yeast of your groin and folds of your body. You are very malodorous. You have a thick vaginal discharge. Plan of Treatment: Please see your primary care provider and in the next 1 to 2 weeks. He just needs to do some follow-up to make sure that you are swallowing okay. And that you have the appropriate help at home with regards to medications, and skin care. He may also need to refer you to gynecology for a good pelvic and vaginal exam. He may opt to do it in his own office. You may have a vaginitis. Please make sure that you get a bath at least 2 times a week. Hopefully 3 times a week. Please complete your antibiotic therapy for the bacteria called Proteus that is growing in your urine from your February 02 visit. Care Goals: To return to your baseline status. You have excellent support at home and there is no predictive change at this time with regards to your health Assessment: Patient is alert, oriented, still independent with regards to making her own decisions No Smoking: If you smoke, Please STOP! Call for help. Follow-up with: Bennie Hill MD [Provider Admit Priv/Credential] -
--- NOTE | 2023-02-06 12:07 | PHARMACY PROGRESS NOTE ---
- Best Possible Medication History Admit Date and Time: 02/06/23 0126 Processed by: Pharmacy Medication History completed: Yes Patient Interview: Completed Secondary Source(s): Pharmacy records, Insurance records, Previous admit records As the person ultimately responsible for medication therapy, providers are able to order a medication from an existing home medication list in [facility] via the "Reconcile Routine" prior to Confirmation of that medication by technical support assistant. Such practice is discouraged except when the physician, in their clinical judgment, deems that a medical need exists for a medication without regard to previous use.
--- NOTE | 2023-02-06 13:09 | PROVIDER PROGRESS NOTE ---
Subjective - Prog Note Date Prog Note Date: 02/06/23 Prog Note Time: 12:05 - Subjective Pt reports feeling: Improved Subjective: no acute events, tolerating PO Objective - Vital Signs/Intake & Output Vital Signs: Vital Signs x48h Temp Pulse Resp BP Pulse Ox O2 Flow Rate 02/06/23 09:51 88 93/53 L 02/06/23 09:45 83 90/56 L 02/06/23 07:45 98.1 F 75 18 91/51 L 100 2 02/06/23 06:45 97.2 F L 80 16 87/52 L 99 2 02/06/23 05:45 97.9 F 85 16 96/65 99 2 Intake & Output: Intake & Output 02/03/23 02/04/23 02/05/23 02/06/23 23:59 23:59 23:59 23:59 Intake Total 1712 Output Total 300 Balance 1412 - Objective General Appearance: positive: No acute distress, Alert Neck: positive: Nml inspection Respiratory: positive: No respiratory distress Cardiovascular: positive: Regular rate & rhythm Abdomen: positive: Non-tender Assessment/Plan - Problem List (1) Esophageal obstruction due to food impaction Impression: Ok for DC on full liquid diet Follow up with Dr. Garcia
[2023-02-06 13:13] VITALS: BP 97/56
== END 2023-02-06 14:25 | disposition home or self-care (01) ==
LOC: ED 19:37 → SDS 20:23 → MS3 02-06 01:26 → UNDOADMOB 02-06 01:26 → MS2 02-06 01:26 → EDSTATUS 02-06 08:18 → UNDODISOB 02-06 14:25
PROVIDERS: ADMIT Internal Medicine; ATTEND Specialist
PROC: 0DB28ZX Excision of Middle Esophagus, Via Natural or Artificial Opening Endoscopic, Diagnostic (ICD-10-PCS; principal; 2023-02-05)
PROC: 0DC18ZZ Extirpation of Matter from Upper Esophagus, Via Natural or Artificial Opening Endoscopic (ICD-10-PCS; 2023-02-05)
DX: T18.128A Food in esophagus causing other injury, initial encounter (principal); I10 Essential (primary) hypertension; K22.89 Other specified disease of esophagus; K22.10 Ulcer of esophagus without bleeding; K44.9 Diaphragmatic hernia without obstruction or gangrene; G80.1 Spastic diplegic cerebral palsy; T83.510A Infection and inflammatory reaction due to cystostomy catheter, initial encounter; F31.9 Bipolar disorder, unspecified; I95.9 Hypotension, unspecified; K21.00 Gastro-esophageal reflux disease with esophagitis, without bleeding; B37.2 Candidiasis of skin and nail; N76.0 Acute vaginitis; L89.899 Pressure ulcer of other site, unspecified stage; L89.151 Pressure ulcer of sacral region, stage 1
CPT/HCPCS: 36415; 43239; 43247; 71045; 80048; 80053; 83690; 85025; 94640; 96365; 96366; 99285; A9270; J0330; J2060; J7120

== ENCOUNTER 2023-02-05 19:37 | Day surgery (SDC) | payer MEDICARE, MEDICAID ==
[~2023-02-05 19:37] MED LIST: LACTATED RINGERS 400 ML IV ONE
--- NOTE | 2023-02-05 20:00 | ED Physician Documentation ---
History of Present Illness - Stated complaint Stated Complaint: PHLEGM IN THROAT - Chief complaint Chief Complaint: Resp - History obtained from History obtained from: Patient, EMS - History of Present Illness Timing: Today Pain level max: 0 Pain level now: 0 - Additonal information Additional information: 52-year-old female states that she was eating meat and vegetables earlier today when she felt like there was something stuck in her throat and she states that she has been unable to swallow any liquids since then. She was seen in the emergency department earlier today and given glucagon and it was reported that she was able to drink water at that time. Patient states that when she tried to drink at home everything would come back up immediately. Review of Systems Constitutional: denies: Fever GI: denies: Diarrhea, Hematemesis, Bloody / black stool Skin: denies: Rash PD PAST MEDICAL HISTORY - Past Medical History Cardiovascular: Hypertension Respiratory: Asthma, Other Neuro: Cerebral palsy Endocrine/Autoimmune: Other GI: GERD PACKING LINE WORKER: None : Indwelling catheter, Kidney stones HEENT: Chronic vision loss Psych: Depression, Anxiety, Bipolar disorder, Post traumatic stress disorder Musculoskeletal: Osteoarthritis, Other Derm: Psoriasis - Past Surgical History Past Surgical History: Yes General: Hiatal hernia repair, EGD Ortho: Other /PACKING LINE WORKER: section, Hysterectomy - Present Medications Home Medications: Ambulatory Orders Medication Instructions Recorded Confirmed Propranolol [Inderal] 20 mg PO TID 04/27/13 12/07/22 Enalapril [Vasotec] 5 mg ORAL BID 05/14/14 12/07/22 Citalopram Hydrobromide [Celexa] 10 mg PO DAILY 08/22/16 12/07/22 oxyBUTYnin chloride [Ditropan Xl] 10 mg PO DAILY 01/23/17 12/07/22 ARIPiprazole [Abilify] 20 mg PO DAILY 08/28/17 12/07/22 Meloxicam [Mobic] 15 mg PO DAILY 02/16/21 12/07/22 buPROPion [Wellbutrin Xl] 150 mg PO DAILY 02/16/21 12/07/22 Albuterol [Proventil Hfa] 2 puffs INH Q4H PRN 12/07/22 12/07/22 Lansoprazole [Prevacid] 30 mg PO QDAC 12/07/22 12/07/22 hydrOXYzine HCL [Hydroxyzine HCl] 25 mg PO DAILY PRN 12/07/22 12/07/22 ondansetron HCL [Ondansetron HCl] 8 mg PO Q8H PRN 12/07/22 12/07/22 Acetaminophen [Tylenol] 500 mg PO Q4HR PRN tab 12/10/22 Cod Liver Oil/Zinc Oxide [Desitin] 113 gm TOP PRN PRN each 12/10/22 cephALEXin [Keflex] 500 mg PO Q6H #28 cap 02/02/23 - Allergies Allergies/Adverse Reactions: Allergies Allergy/AdvReac Type Severity Reaction Status Date / Time phenazopyridine Allergy Unknown Verified 02/05/23 19:45 [From Pyridium] paroxetine HCl * [From Paxil] AdvReac Intermediate Emesis Verified 02/05/23 19:45 codeine [Codeine] AdvReac Pass Out Verified 02/05/23 19:45 - Social History Does the pt smoke?: No Smoking Status: Never smoker Does the pt drink ETOH?: No Does the pt have substance abuse?: No - Immunizations Immunizations are current?: Yes - POLST Patient has POLST: No PD ED PE NORMAL - Vitals Vital signs reviewed: Yes - General General: Alert and oriented X 3, No acute distress - HEENT HEENT: Moist mucous membranes, Pharynx benign - Neck Neck: Supple, no meningeal sign - Cardiac Cardiac: RRR, Strong equal pulses - Respiratory Respiratory: No respiratory distress, Clear bilaterally - Abdomen Abdomen: Soft, Non tender, Non distended - Derm Derm: Warm and dry - Neuro Neuro: Alert and oriented X 3 - Psych Psych: Normal mood, Normal affect Results - Vitals Vitals: Vital Signs - 24 hr 02/05/23 19:43 Temperature 37.1 C Heart Rate 102 H Respiratory 18 Rate Blood Pressure 142/87 H O2 Saturation 96 Oxygen O2 Source Room air - Labs Labs: Laboratory Tests 02/05/23 02/05/23 20:54 20:54 WBC 13.9 H RBC 4.35 Hgb 12.9 Hct 38.2 MCV 87.8 MCH 29.7 MCHC 33.8 RDW 12.9 Plt Count 256 MPV 9.7 Neut # (Auto) 11.9 H Lymph # (Auto) 0.9 L [place] # (Auto) 1.0 Eos # (Auto) 0.0 Baso # (Auto) 0.0 Absolute Nucleated RBC 0.00 Nucleated RBC % 0.0 Sodium 130 L Potassium 4.0 Chloride 98 L Carbon Dioxide 23 Anion Gap 9.0 BUN 19 Creatinine 0.7 Estimated GFR (MDRD) 88 L Glucose 99 Calcium 8.9 PD Medical Decision Making - ED course Complexity details: reviewed results, re-evaluated patient, considered differential, d/w patient, d/w reporting consultant ED course: Patient with an esophageal food impaction likely from eating meat earlier today. She did receive glucagon earlier, as her symptoms have not resolved, will consult general surgery. Discussed the case with Dr. Garcia, general surgeon on- call who came and evaluated the patient. She will plan on taking her for endoscopy tonight. Patient was given a dose of IV Rocephin for her UTI and a dose of Ativan for her anxiety. This document was made in part using voice recognition software. While efforts are made to proofread this document, sound alike and grammatical errors may occur. Departure - Departure Disposition: ED Transfer to [facility] Clinical Impression: Esophageal obstruction due to food impaction Condition: Stable
--- NOTE | 2023-02-05 20:38 | CONSULTATION NOTE ---
Referring Provider Name of Referring Provider:: Medicine Consult Date: 02/05/23 Chief Complaint - Chief Complaint Chief Complaint: "I can't swallow" History of Present Illness - Admitted From Admitted From:: ED - History Obtained From Records Reviewed: yes History obtained from: patient, chart, ED providers Exam Limitations: patient is poor historian - History of Present Illness HPI Comment/Other: This is a 52-year-old female who reports that she was eating some beef from a kebab and vegetables this morning when she felt her esophagus spasm. She does not recall if she was wearing her dentures that did not time or not. She then felt like she was having an asthma attack and called EMS. She presented to the emergency department where she was given glucagon. Subsequently, she passed a swallow evaluation and was able to be discharged home. Since the time of her discharge, the patient states that she has not been able to tolerate water or her own secretions and now returns to the emergency department. She is concerned because she has been unable to take her medication for a recently diagnosed urinary tract infection related to her chronically indwelling Epps. For concern for esophageal foreign body, I am being consulted. At the time of my visit, the patient appears uncomfortable and anxious. She is not retching. She states she feels like she "needs to burp". Notably, the patient has seen 3 different providers today and has provided 3 different stories regarding the onset of her symptoms this morning. History - Past Medical History Cardiovascular: reports: Hypertension Respiratory: reports: Asthma, Other Neuro: reports: Cerebral palsy Endocrine/Autoimmune: reports: Other GI: reports: GERD RN ONCOLOGY RESEARCH: reports: None : reports: Indwelling catheter, Kidney stones HEENT: reports: Chronic vision loss Psych: reports: Depression, Anxiety, Bipolar disorder, Post traumatic stress disorder Musculoskeletal: reports: Osteoarthritis, Other Derm: reports: Psoriasis MRSA Hx?: Yes - Past Surgical History General: reports: Hiatal hernia repair, Colonoscopy, EGD Ortho: reports: Other /RN ONCOLOGY RESEARCH: reports: section, Hysterectomy - Family & Social History Family History: Brother: Alive and Well Family History Comment/Other: She was adopted Living arrangement: At home (With in-home care) Living Situation: With caregiver(s) Social History Notes: Patient does not drink alcohol. She quit smoking 20+ years ago. - Substance History Use: Uses substance without health or social issues: NONE - POLST Patient has POLST: No Meds/Allgy - Home Medications Home Medications: Ambulatory Orders Medication Instructions Recorded Confirmed Propranolol [Inderal] 20 mg PO TID 04/27/13 12/07/22 Enalapril [Vasotec] 5 mg ORAL BID 05/14/14 12/07/22 Citalopram Hydrobromide [Celexa] 10 mg PO DAILY 08/22/16 12/07/22 oxyBUTYnin chloride [Ditropan Xl] 10 mg PO DAILY 01/23/17 12/07/22 ARIPiprazole [Abilify] 20 mg PO DAILY 08/28/17 12/07/22 Meloxicam [Mobic] 15 mg PO DAILY 02/16/21 12/07/22 buPROPion [Wellbutrin Xl] 150 mg PO DAILY 02/16/21 12/07/22 Albuterol [Proventil Hfa] 2 puffs INH Q4H PRN 12/07/22 12/07/22 Lansoprazole [Prevacid] 30 mg PO QDAC 12/07/22 12/07/22 hydrOXYzine HCL [Hydroxyzine HCl] 25 mg PO DAILY PRN 12/07/22 12/07/22 ondansetron HCL [Ondansetron HCl] 8 mg PO Q8H PRN 12/07/22 12/07/22 Acetaminophen [Tylenol] 500 mg PO Q4HR PRN tab 12/10/22 Cod Liver Oil/Zinc Oxide [Desitin] 113 gm TOP PRN PRN each 12/10/22 cephALEXin [Keflex] 500 mg PO Q6H #28 cap 02/02/23 - Allergies Allergies/Adverse Reactions: Allergies Allergy/AdvReac Type Severity Reaction Status Date / Time phenazopyridine Allergy Unknown Verified 02/05/23 19:45 [From Pyridium] paroxetine HCl * [From Paxil] AdvReac Intermediate Emesis Verified 02/05/23 19:45 codeine [Codeine] AdvReac Pass Out Verified 02/05/23 19:45 Review of Systems - Constitutional Constitutional: reports: Other (A complete 10 point review of symptoms is otherwise negative except for that noted in HPI and PMH.) Exam - Vital Signs Vital Signs: Vital Signs x48h Temp Pulse Resp BP Pulse Ox 02/05/23 19:43 37.1 C 102 H 18 142/87 H 96 - Physical Exam General Appearance: positive: Mild distress, Anxious Eyes Bilateral: positive: Normal inspection, EOMI ENT: positive: Dry mucous membranes Neck: positive: No JVD, Trachea midline Respiratory: positive: No respiratory distress Cardiovascular: positive: Regular rate & rhythm Peripheral Pulses: positive: 2+ Abdomen: positive: No distention. negative: Tenderness, Guarding, Rebound Extremities: positive: Other (Contractures of bilateral lower extremities, decreased strength in bilateral upper extremities) Neurologic/Psychiatric: positive: Oriented x3, Other Conclusion and Plan - Diagnostic Imaging Results Diagnostic Imaging Results: positive: Final report reviewed Diagnostic Imaging Results Comments: CXR from this AM does not demonstrate acute signs of pneumonia or aspiration. - Consultation Note Consultation Note: This is a 52-year-old female with: 1. Possible esophageal foreign body Plan for emergent upper endoscopy to rule out esophageal foreign body. If foreign body is present, will plan for removal. I discussed the risks, benefits, and alternatives of this procedure including bleeding and perforation with the patient. She voiced understanding, her questions were answered, and she wished to proceed. Notably, the patient had a normal upper endoscopy approximately 2 months ago without any signs of narrowing - Prior to her procedure, I did discuss with the patient the importance of wearing well fitting dentures when eating and thoroughly chewing her food. I advised against eating any meat, hard breads, or raw vegetables if she is not wearing dentures. I suggested she eat a soft diet consisting of foods that could fit though a straw (though they don't need to be eaten that way) if she is not wearing dentures to prevent similar episodes as this in the future. 2. Urinary tract infection, cerebral palsy, hypertension, GERD, bipolar disorder, asthma - patient will likely need IV abx today for UTI, hopefully can transition back to PO tomorrow AM -I have asked for the patient to be admitted to our medicine team to manage her chronic conditions while she is here. I am hopeful that she will be able to be discharged tomorrow.
[2023-02-05] MEDS ORDERED: cefTRIAXone 1 GM VIAL IVP STA (20:52)
[2023-02-05] MEDS ORDERED: LORazepam 2 MG/ML VIAL IVP STA (21:01)
[2023-02-05] MEDS ORDERED: LACTATED RINGERS 1,000 ML IV SCH (23:45)
[2023-02-05] MEDS ORDERED: MIDAZOLAM 2 MG/2 ML VIAL ONE (23:51)
[2023-02-05] MEDS ORDERED: SUCCINYLCHOLINE 200 MG/10 ML VIAL ONE (23:52)
[2023-02-05] MEDS ORDERED: fentaNYL 100 MCG/2 ML VIAL ONE (23:52)
[2023-02-05] MEDS ORDERED: PROPOFOL 200 MG/20 ML VIAL IVP ONE (23:52)
[2023-02-05] MEDS ORDERED: ePHEDrine 50 MG/ML VIAL IVP PRN (23:55)
[2023-02-05] MEDS ORDERED: MORPHINE 2 MG/ML CARPUJECT IVP PRN (23:55)
[2023-02-05] MEDS ORDERED: HYDROmorphone 0.5 MG/0.5 ML SYRINGE IVP PRN (23:55)
[2023-02-05] MEDS ORDERED: ATROPINE ABBOJECT 1 MG/10 ML SYRINGE IVP PRN (23:55)
[2023-02-05] MEDS ORDERED: fentaNYL 100 MCG/2 ML VIAL IVP PRN (23:55)
[2023-02-05] MEDS ORDERED: NALOXONE 0.4 MG/ML VIAL IVP PRN (23:55)
[2023-02-05] MEDS ORDERED: ONDANSETRON 4 MG/2 ML VIAL IVP PRN (23:55)
--- NOTE | 2023-02-05 23:55 | ANESTHESIA ---
Pre-Anesthesia VS, & Labs - Diagnosis possible food bolus - Procedure EGD Vital Signs: Temp Pulse Resp BP Pulse Ox O2 Flow Rate 37.1 C 112 H 20 105/88 H 98 02/05/23 19:43 02/05/23 23:06 02/05/23 23:06 02/05/23 23:06 02/05/23 23:06 Height: 5 ft 2 in Weight (kg): 81.647 kg Body Mass Index: 32.9 BMI Classification: Obese - NPO >8 hours - Is Patient ?: No - Lab Results Current Lab Results: Laboratory Tests 02/05/23 20:54: Sodium 130 L, Potassium 4.0, Chloride 98 L, Carbon Dioxide 23, Anion Gap 9.0, BUN 19, Creatinine 0.7, Estimated GFR (MDRD) 88 L, Glucose 99, Calcium 8.9 02/05/23 20:54: WBC 13.9 H, RBC 4.35, Hgb 12.9, Hct 38.2, MCV 87.8, MCH 29.7, MCHC 33.8, RDW 12.9, Plt Count 256, MPV 9.7, Neut # (Auto) 11.9 H, Lymph # (Auto) 0.9 L, [place] # (Auto) 1.0, Eos # (Auto) 0.0, Baso # (Auto) 0.0, Absolute Nucleated RBC 0.00, Nucleated RBC % 0.0 Fish Bones: 02/05/23 20:54 02/05/23 20:54 Home Medications and Allergies Propranolol [Inderal] 20 mg PO TID 04/27/13 Enalapril [Vasotec] 5 mg ORAL BID 05/14/14 Citalopram Hydrobromide [Celexa] 10 mg PO DAILY 08/22/16 oxyBUTYnin chloride [Ditropan Xl] 10 mg PO DAILY 01/23/17 ARIPiprazole [Abilify] 20 mg PO DAILY 08/28/17 Meloxicam [Mobic] 15 mg PO DAILY 02/16/21 buPROPion [Wellbutrin Xl] 150 mg PO DAILY 02/16/21 Albuterol [Proventil Hfa] 2 puffs INH Q4H PRN 12/07/22 Lansoprazole [Prevacid] 30 mg PO QDAC 04/23/23 hydrOXYzine HCL [Hydroxyzine HCl] 25 mg PO DAILY PRN 12/07/22 ondansetron HCL [Ondansetron HCl] 8 mg PO Q8H PRN 12/07/22 Allergies/Adverse Reactions: Allergies Allergy/AdvReac Type Severity Reaction Status Date / Time phenazopyridine Allergy Unknown Verified 02/05/23 19:45 [From Pyridium] paroxetine HCl * [From Paxil] AdvReac Intermediate Emesis Verified 02/05/23 1 9:45 codeine [Codeine] AdvReac Pass Out Verified 02/05/23 19:45 Anes History & Medical History - Anesthetic History Anesthesia Complications: reports: No previous complications Family history of Anesthesia Complications: Denies Family history of Malignant Hyperthermia: Denies - Medical History Cardiovascular: reports: Hypertension Pulmonary: reports: Asthma, Other Gastrointestinal: reports: GERD Urinary: reports: Indwelling catheter, Kidney stones Neuro: reports: Cerebral palsy Musculoskeletal: reports: Osteoarthritis, Other Endocrine/Autoimmune: reports: Other Blood Disorders: reports: None Skin: reports: Psoriasis Smoking Status: Never smoker - Surgical History General: reports: Hiatal hernia repair, EGD Urologic: reports: Kidney stents Gynecologic: reports: section, Hysterectomy Orthopedic: reports: Other Exam General: Alert, Oriented x3, Cooperative Dental: Dentures full Upper, Dentures full Lower Mouth Openin Fingerbreadth Neck Mobility: Normal Mallampati classification: I Thyromental Distance: less than 4 cm Respiratory: Lungs clear Cardiovascular: Regular rate Plan Anesthesia Type: General Consent for Procedure(s) Verified and Reviewed: Yes Code Status: Attempt Resuscitation ASA classification: 4-Incapacitating disease Is this case an emergency?: Yes
[2023-02-06] MEDS ORDERED: ePHEDrine 50 MG/ML VIAL IVP ONE (00:24)
[2023-02-06] MEDS ORDERED: SUGAMMADEX 200 MG/2 ML VIAL IVP ONE (00:54)
[2023-02-06] MEDS ORDERED: ONDANSETRON 4 MG/2 ML VIAL IVP PRN (01:17)
[2023-02-06] MEDS ORDERED: SODIUM CHLORIDE FLUSH 0.9% 10 ML SYRINGE IVP PRN (01:17)
[2023-02-06] MEDS ORDERED: PROCHLORPERAZINE 10 MG/2 ML VIAL IVP PRN (01:17)
[2023-02-06] MEDS ORDERED: ACETAMINOPHEN 325 MG TABLET PO PRN (01:17)
[2023-02-06 01:24] VITALS: BP 104/86
--- NOTE | 2023-02-06 01:32 | ANESTHESIA POST OP EVALUATION ---
Anesthesia Post Eval - Post Anesthesia Eval Vitals: Last Vital Signs Temp 37.0 C 02/06/23 01:20 Pulse 103 H 02/06/23 01:20 Resp 18 02/06/23 01:20 BP 104/86 H 02/06/23 01:20 Pulse Ox 92 02/06/23 01:20 O2 Flow Rate CV Function Including HR & BP: Stable Pain Control: Satisfactory Nausea & Vomiting: Negative Mental Status: Baseline Respiratory Status: Airway Patent Hydration Status: Satisfactory Anesthesia Complications: None
[2023-02-06] MEDS ORDERED: ALBUTEROL NEB 2.5 MG/3 ML INH PRN (01:37)
--- NOTE | 2023-02-06 01:38 | HISTORY & PHYSICAL EXAMINATION ---
Chief Complaint - Chief Complaint Chief Complaint: food impaction s/p EGD History of Present Illness - Admitted From Admitted From:: PACU - History Obtained From Records Reviewed: EMR History obtained from: ED staff, SWINE EXTENSION FIELD SPECIALIST, Patient, and Surgery Consult Exam Limitations: Tele medicine - History of Present Illness HPI Comment/Other: 52YOF c cerebral palsy, recurrent UTI associated with suprapubic catheter who presents to the ED earlier today complaining of food impaction. Patient had a beef Kebab c vegetables and sudden felt her esophagus spasm with subsequent SOB. Patient immediately noted inability to swallow and EMS was called. Patient was brought into the ED earlier for food impaction and was started on glucagon which improved her sxs. She was able to tolerate liquids before being discharged back home. Patient was also concurrently noted for possible UTI and started on Keflex. Up returning home, patient developed sxs and could not swallow again. She had difficulty drinking water. She returned to the ED. She seen by general surgery and noted to be actively wretching and was taken to OR for EGD and subsequently her food impaction was resolved. Gen surgery felt patient was premature to go home so requested Hospital Medicine to assist with managing patient until able to tolerate oral and safe for discharge. Patient seen in the PACU. She reports food impaction symptoms improved significantly. She has not attempt po intake. She currently has no abdominal pain. No nausea. History - Past Medical History Cardiovascular: reports: Hypertension Respiratory: reports: Asthma, Other Neuro: reports: Cerebral palsy Endocrine/Autoimmune: reports: Other GI: reports: GERD HAM SMOKER: reports: None : reports: Indwelling catheter, Kidney stones HEENT: reports: Chronic vision loss Psych: reports: Depression, Anxiety, Bipolar disorder, Post traumatic stress disorder Musculoskeletal: reports: Osteoarthritis, Other Derm: reports: Psoriasis MRSA Hx?: Yes - Past Surgical History General: reports: Hiatal hernia repair, EGD Ortho: reports: Other /HAM SMOKER: reports: section, Hysterectomy - Family & Social History Family History: Brother: Alive and Well Family History Comment/Other: She was adopted Living arrangement: At home (With in-home care) Living Situation: With caregiver(s) Social History Notes: Patient does not drink alcohol. She quit smoking 20+ years ago. - Substance History Use: Uses substance without health or social issues: NONE - POLST Patient has POLST: No Meds/Allgy - Home Medications Home Medications: Ambulatory Orders Medication Instructions Recorded Confirmed Propranolol [Inderal] 20 mg PO TID 04/27/13 12/07/22 Enalapril [Vasotec] 5 mg ORAL BID 05/14/14 12/07/22 Citalopram Hydrobromide [Celexa] 10 mg PO DAILY 08/22/16 12/07/22 oxyBUTYnin chloride [Ditropan Xl] 10 mg PO DAILY 01/23/17 12/07/22 ARIPiprazole [Abilify] 20 mg PO DAILY 08/28/17 12/07/22 Meloxicam [Mobic] 15 mg PO DAILY 02/16/21 12/07/22 buPROPion [Wellbutrin Xl] 150 mg PO DAILY 02/16/21 12/07/22 Albuterol [Proventil Hfa] 2 puffs INH Q4H PRN 12/07/22 12/07/22 Lansoprazole [Prevacid] 30 mg PO QDAC 12/07/22 12/07/22 hydrOXYzine HCL [Hydroxyzine HCl] 25 mg PO DAILY PRN 12/07/22 12/07/22 ondansetron HCL [Ondansetron HCl] 8 mg PO Q8H PRN 12/07/22 12/07/22 Acetaminophen [Tylenol] 500 mg PO Q4HR PRN tab 12/10/22 Cod Liver Oil/Zinc Oxide [Desitin] 113 gm TOP PRN PRN each 12/10/22 cephALEXin [Keflex] 500 mg PO Q6H #28 cap 02/02/23 - Allergies Allergies/Adverse Reactions: Allergies Allergy/AdvReac Type Severity Reaction Status Date / Time phenazopyridine Allergy Unknown Verified 02/05/23 19:45 [From Pyridium] paroxetine HCl * [From Paxil] AdvReac Intermediate Emesis Verified 02/05/23 19:45 codeine [Codeine] AdvReac Pass Out Verified 02/05/23 19:45 Review of Systems - Other Findings Other Findings: 10 points ROS negative unless mentioned differently above in HPI Exam - Vital Signs Reviewed Vital Signs: Yes Vital Signs: Vital Signs x48h Temp Pulse Resp BP Pulse Ox 02/06/23 01:20 37.0 C 103 H 18 104/86 H 92 02/06/23 01:15 105 H 14 99/77 93 02/06/23 01:10 101 H 16 97/69 96 02/06/23 01:05 36.9 C 101 H 16 107/71 97 02/06/23 01:02 36.9 C 101 H 16 104/70 99 02/05/23 23:06 112 H 20 105/88 H 98 02/05/23 19:43 37.1 C 102 H 18 142/87 H 96 - Physical Exam General Appearance: positive: No acute distress Eyes Bilateral: positive: Normal inspection ENT: positive: ENT inspection nml Neck: positive: Nml inspection Cardiovascular: positive: Regular rate & rhythm Skin: positive: Color nml Extremities: positive: Full ROM Neurologic/Psychiatric: positive: Oriented x3, CN's nml (2-12) Conclusion/Plan - Problem List (1) Esophageal obstruction due to food impaction Conclusion/Plan: sxs resolved after EGD. currently ordered liquids as patient is edentulous and cannot chew. recommend patient to consider seeing GI specialist for further workup since patient reports frequent episodes when liquid and solid gets stuck. continue on PPI. HOB>30. aspiration precaution. bedside swallow in am. Followup c Gen surgery recommendation in am (2) Urinary tract infection Conclusion/Plan: -patient has hx of reucrrent UTI in setting of suprapubic cath -UTI dx by ED staff on earlier ED visit and started on Keflex. -restart Keflex Qualifiers: Urinary tract infection type: catheter-associated UTI Indwelling urinary catheter type: cystostomy catheter Encounter type: initial encounter Qualified Code(s): T83.510A - Infection and inflammatory reaction due to cystostomy catheter, initial encounter; N39.0 - Urinary tract infection, site not specified (3) GERD (gastroesophageal reflux disease) Conclusion/Plan: managed. continue home PPI equivalent (4) Bipolar disorder Conclusion/Plan: stable. no acute flare. restart home citalopram, Abilify, and Bupropion (5) Depression Conclusion/Plan: stable. no acute flare. restart home citalopram, Abilify, and Bupropion Qualifiers: Depression Type: major depressive disorder Major depression recurrence: recurrent (6) Anxiety Conclusion/Plan: stable. no acute flare. restart home hydroxyzine (7) Asthma Conclusion/Plan: stable. no acute flare. restart prn albuterol - Lab Results Fish Bones: 02/05/23 20:54 02/05/23 20:54 Core Measures - Anticipated LOS I expect patient to be DC'd or transferred within 96 hours.: Yes - Issues Hospital Issues and Management Plan: The patient consented to receive this telemedicine service, which I performed via live two-way audiovisual equipment. The patient is at ([facility]) and I am physically in [facility]. A nurse assisted me in the visit. Kathy Villegas DO Internal Medicine Sound Tele Top Cutter - DVT/VTE - Prophylaxis VTE/DVT Device ordered at admit?: Yes Telemedicine Consult Details - Provider Location & Consult Time Telemedicine consultation conducted via videoconferencing?: Yes List names and roles of persons who participated in consult:: ED staff, SWINE EXTENSION FIELD SPECIALIST, and Patient Telemedicine provider location:: [facility] Time Telemedicine consult began:: 01:04 Time Telemedicine consult completed:: 02:04
[2023-02-06] MEDS ORDERED: hydrOXYzine PAMOATE 25 MG CAPSULE PO PRN (01:45)
[2023-02-06] MEDS ORDERED: cephALEXin 250 MG CAPSULE PO SCH (02:00)
[2023-02-06] MEDS ORDERED: PROPRANOLOL 10 MG TABLET PO SCH (06:00)
[2023-02-06] MEDS ORDERED: PANTOPRAZOLE 40 MG TABLET PO SCH ×2 (07:00)
[2023-02-06] MEDS ORDERED: SODIUM CHLORIDE FLUSH 0.9% 10 ML SYRINGE IVP SCH (09:00)
[2023-02-06] MEDS ORDERED: SOLIFENACIN SUCCINATE 5 MG TABLET PO SCH (09:00)
[2023-02-06] MEDS ORDERED: lisinopriL 20 MG TABLET PO SCH (09:00)
[2023-02-06] MEDS ORDERED: ARIPiprazole 5 MG TABLET PO SCH (09:00)
[2023-02-06] MEDS ORDERED: CITALOPRAM 10 MG TABLET PO SCH (09:00)
[2023-02-06] MEDS ORDERED: buPROPion XL 150 MG TABLET PO SCH (09:00)
[2023-02-06] MEDS ORDERED: NYSTATIN 500000 UNITS/5 ML UDC PO SCH (09:00)
== END 2023-02-05 20:24 | disposition home or self-care (01) ==
LOC: EDUNIT# → ED 19:37 → SDS 20:23
PROVIDERS: ATTEND Surgery
DX: Z53.9 Procedure and treatment not carried out, unspecified reason (principal)
CPT/HCPCS: 36415; 80048; 85025

== ENCOUNTER 2023-02-06 14:37 | Outpatient (CLI) | payer MEDICARE, MEDICAID | END 2023-02-06 14:38 | disposition home or self-care (01) | LOC: EMS 14:37 | PROVIDERS: ATTEND Specialist | DX: N39.0 Urinary tract infection, site not specified (principal); G80.9 Cerebral palsy, unspecified; Z74.01 Bed confinement status | CPT/HCPCS: A0425; A0428 ==

== ENCOUNTER 2023-02-12 14:30 | Outpatient (CLI) | payer MEDICARE, MEDICAID | END 2023-02-12 23:59 | disposition critical access hospital (66) | LOC: EMS 14:30 | DX: T83.030A Leakage of cystostomy catheter, initial encounter (principal) | CPT/HCPCS: A0425; A0429 ==

== ENCOUNTER 2023-02-12 14:54 | Emergency (ER) | payer MEDICARE, MEDICAID ==
--- NOTE | 2023-02-12 15:18 | ED Physician Documentation ---
History of Present Illness - Stated complaint Stated Complaint: CATH ISSUE - Chief complaint Chief Complaint: General - History obtained from History obtained from: Patient (Has chronic suprapubic cath and it was replaced today and it is leaking and "pissing her off.") PD PAST MEDICAL HISTORY - Past Medical History Cardiovascular: Hypertension Respiratory: Asthma, Other Neuro: Cerebral palsy Endocrine/Autoimmune: Other GI: GERD VALVE SETTER: None : Indwelling catheter, Kidney stones HEENT: Chronic vision loss Psych: Depression, Anxiety, Bipolar disorder, Post traumatic stress disorder Musculoskeletal: Osteoarthritis, Other Derm: Psoriasis - Past Surgical History Past Surgical History: Yes General: Hiatal hernia repair, EGD Ortho: Other /VALVE SETTER: section, Hysterectomy - Present Medications Home Medications: Ambulatory Orders Medication Instructions Recorded Confirmed Propranolol [Inderal] 20 mg PO TID 04/27/13 02/06/23 Enalapril [Vasotec] 5 mg ORAL BID 05/14/14 02/06/23 Citalopram Hydrobromide [Celexa] 10 mg PO DAILY 08/22/16 02/06/23 ARIPiprazole [Abilify] 20 mg PO DAILY 08/28/17 02/06/23 Meloxicam [Mobic] 15 mg PO DAILY 02/16/21 02/06/23 buPROPion [Wellbutrin Xl] 150 mg PO DAILY 02/16/21 02/06/23 Albuterol [Proventil Hfa] 2 puffs INH Q4H PRN 12/07/22 02/06/23 Lansoprazole [Prevacid] 30 mg PO QDAC 12/07/22 02/06/23 hydrOXYzine HCL [Hydroxyzine HCl] 25 mg PO DAILY PRN 12/07/22 02/06/23 ondansetron HCL [Ondansetron HCl] 8 mg PO Q8H PRN 12/07/22 02/06/23 Acetaminophen [Tylenol] 500 mg PO Q4HR PRN tab 12/10/22 02/06/23 Cod Liver Oil/Zinc Oxide [Desitin] 113 gm TOP PRN PRN each 12/10/22 02/06/23 cephALEXin [Keflex] 500 mg PO Q6H #28 cap 02/02/23 02/06/23 Ketoconazole [Nizoral A-D] 1 applic TOP Q3D 02/06/23 02/06/23 Vibegron [Gemtesa] 75 mg PO DAILY 02/06/23 02/06/23 - Allergies Allergies/Adverse Reactions: Allergies Allergy/AdvReac Type Severity Reaction Status Date / Time phenazopyridine Allergy Unknown Verified 02/05/23 19:45 [From Pyridium] paroxetine HCl * [From Paxil] AdvReac Intermediate Emesis Verified 02/05/23 19:45 codeine [Codeine] AdvReac Pass Out Verified 02/05/23 19:45 - Social History Does the pt smoke?: No Smoking Status: Never smoker Does the pt drink ETOH?: No Does the pt have substance abuse?: No - Immunizations Immunizations are current?: Yes - POLST Patient has POLST: No PD ED PE NORMAL - Vitals Vital signs reviewed: Yes - General General: Alert and oriented X 3, No acute distress - Abdomen Abdomen: Normal bowel sounds, Soft, Other (Suprapubic cath 24 F with leaking around it.) Results - Vitals Vitals: Vital Signs - 24 hr 02/12/23 15:04 Temperature 36.6 C Heart Rate 64 Respiratory 18 Rate Blood Pressure 176/111 H O2 Saturation 100 Oxygen O2 Source Room air PD Medical Decision Making - ED course ED course: Cath replaced with 24F with cessation of leakage. Departure - Departure Disposition: 01 Home, Self Care Clinical Impression: Suprapubic catheter Condition: Good Record reviewed to determine appropriate education?: Yes Instructions: ED Catheter Care Epps
[2023-02-12 15:26] VITALS: BP 163/105
== END 2023-02-12 15:28 | disposition home or self-care (01) ==
LOC: EDUNIT# → ED 14:54
DX: T83.038A Leakage of other urinary catheter, initial encounter (principal)
CPT/HCPCS: 99283

== ENCOUNTER 2023-02-12 16:01 | Emergency (ER) | payer MEDICARE, MEDICAID ==
--- NOTE | 2023-02-12 16:15 | ED Physician Documentation ---
History of Present Illness - Stated complaint Stated Complaint: CATH ISSUE - Chief complaint Chief Complaint: General - History obtained from History obtained from: Patient (I had seen her just before with a leaking catheter and the suprapubic catheter was replaced with the same size. She continues to have leakage. She says she has improved now but is not constipated. Does take Gemtesa for bladder spasms.) PD PAST MEDICAL HISTORY - Past Medical History Cardiovascular: Hypertension Respiratory: Asthma, Other Neuro: Cerebral palsy Endocrine/Autoimmune: Other GI: GERD LOG LOADER: None : Indwelling catheter, Kidney stones HEENT: Chronic vision loss Psych: Depression, Anxiety, Bipolar disorder, Post traumatic stress disorder Musculoskeletal: Osteoarthritis, Other Derm: Psoriasis - Past Surgical History Past Surgical History: Yes General: Hiatal hernia repair, EGD Ortho: Other /LOG LOADER: section, Hysterectomy - Present Medications Home Medications: Ambulatory Orders Medication Instructions Recorded Confirmed Propranolol [Inderal] 20 mg PO TID 04/27/13 02/06/23 Enalapril [Vasotec] 5 mg ORAL BID 05/14/14 02/06/23 Citalopram Hydrobromide [Celexa] 10 mg PO DAILY 08/22/16 02/06/23 ARIPiprazole [Abilify] 20 mg PO DAILY 08/28/17 02/06/23 Meloxicam [Mobic] 15 mg PO DAILY 02/16/21 02/06/23 buPROPion [Wellbutrin Xl] 150 mg PO DAILY 02/16/21 02/06/23 Albuterol [Proventil Hfa] 2 puffs INH Q4H PRN 12/07/22 02/06/23 Lansoprazole [Prevacid] 30 mg PO QDAC 12/07/22 02/06/23 hydrOXYzine HCL [Hydroxyzine HCl] 25 mg PO DAILY PRN 12/07/22 02/06/23 ondansetron HCL [Ondansetron HCl] 8 mg PO Q8H PRN 12/07/22 02/06/23 Acetaminophen [Tylenol] 500 mg PO Q4HR PRN tab 12/10/22 02/06/23 Cod Liver Oil/Zinc Oxide [Desitin] 113 gm TOP PRN PRN each 12/10/22 02/06/23 cephALEXin [Keflex] 500 mg PO Q6H #28 cap 02/02/23 02/06/23 Ketoconazole [Nizoral A-D] 1 applic TOP Q3D 02/06/23 02/06/23 Vibegron [Gemtesa] 75 mg PO DAILY 02/06/23 02/06/23 Docusate Sodium 100Mg Capsule 100 mg PO BID #60 02/12/23 [Colace 100Mg Capsule] - Allergies Allergies/Adverse Reactions: Allergies Allergy/AdvReac Type Severity Reaction Status Date / Time phenazopyridine Allergy Unknown Verified 02/12/23 16:08 [From Pyridium] paroxetine HCl * [From Paxil] AdvReac Intermediate Emesis Verified 02/12/23 16:08 codeine [Codeine] AdvReac Pass Out Verified 02/12/23 16:08 - Social History Does the pt smoke?: No Smoking Status: Never smoker Does the pt drink ETOH?: No Does the pt have substance abuse?: No - Immunizations Immunizations are current?: Yes - POLST Patient has POLST: No PD ED PE NORMAL - Vitals Vital signs reviewed: Yes - General General: Alert and oriented X 3, No acute distress - Abdomen Abdomen: Normal bowel sounds, Soft, Non tender, Other (Mild leakage around her suprapubic catheter with clear urine in the bag.) - Neuro Neuro: Alert and oriented X 3 Results - Vitals Vitals: Vital Signs - 24 hr 02/12/23 16:06 Temperature 36.9 C Heart Rate 63 Respiratory 16 Rate Blood Pressure 123/77 O2 Saturation 100 Oxygen O2 Source Room air PD Medical Decision Making - ED course ED course: 52-year-old woman with functional quadriplegia presents with persistent urinary leakage around her suprapubic catheter after it being changed out a second time earlier today for the same thing. I did talk with our urologist Dr. Parikh who recommended a urethral catheter in addition to her suprapubic catheter. The patient was not enthused with this idea. Subsequently she had a large bowel movement that was quite firm with resolution of the urinary leakage. Departure - Departure Disposition: 01 Home, Self Care Clinical Impression: Suprapubic catheter, Fecal impaction Condition: Good Record reviewed to determine appropriate education?: Yes Instructions: ED Impaction Fecal Treated Follow-Up: Dallas Parikh MD [Provider Admit Priv/Credential] - Prescriptions: Docusate Sodium 100Mg Capsule [Colace 100Mg Capsule] 100 mg PO BID #60
[2023-02-12 18:14] VITALS: BP 141/98
== END 2023-02-12 18:14 | disposition home or self-care (01) ==
LOC: EDUNIT# → ED 16:01
DX: T83.038A Leakage of other urinary catheter, initial encounter (principal); K56.41 Fecal impaction
CPT/HCPCS: 99283

== ENCOUNTER 2023-02-12 16:12 | Outpatient (CLI) | payer MEDICARE, MEDICAID | END 2023-02-12 23:59 | disposition critical access hospital (66) | LOC: EMS 16:12 | PROVIDERS: ATTEND Emergency Medicine | DX: T83.030A Leakage of cystostomy catheter, initial encounter (principal) ==

== ENCOUNTER 2023-02-12 18:15 | Outpatient (CLI) | payer MEDICARE, MEDICAID | END 2023-02-12 23:59 | disposition home or self-care (01) | LOC: EMS 18:15 | PROVIDERS: ATTEND Emergency Medicine | DX: G82.50 Quadriplegia, unspecified (principal); Z46.6 Encounter for fitting and adjustment of urinary device | CPT/HCPCS: A0425; A0428 ==

== ENCOUNTER 2023-04-01 22:22 | Outpatient (CLI) | payer MEDICARE, MEDICAID | END 2023-04-01 22:23 | disposition critical access hospital (66) | LOC: EMS 22:22 | DX: T83.030A Leakage of cystostomy catheter, initial encounter (principal); Z99.3 Dependence on wheelchair | CPT/HCPCS: A0425; A0429 ==

== ENCOUNTER 2023-04-01 22:41 | Emergency (ER) | payer MEDICARE, MEDICAID ==
[2023-04-01 22:58] VITALS: BP 157/122; O2SAT 98
[2023-04-01] MEDS ORDERED: cefTRIAXone 1 GM VIAL IM STA (22:59)
[2023-04-01] MEDS ORDERED: LIDOCAINE 1% 2 ML VIAL MC ONE (22:59)
--- NOTE | 2023-04-01 23:01 | ED Physician Documentation ---
History of Present Illness - Stated complaint Stated Complaint: CATH ISSUE - Chief complaint Chief Complaint: General - History obtained from History obtained from: Patient - Additonal information Additional information: 53-year-old woman with chronic suprapubic catheter, started having leaking around her catheter this evening. Feels like she may have an infection. PD PAST MEDICAL HISTORY - Past Medical History Cardiovascular: Hypertension Respiratory: Asthma, Other Neuro: Cerebral palsy Endocrine/Autoimmune: Other GI: GERD COUNSELOR CAMP: None : Indwelling catheter, Kidney stones HEENT: Chronic vision loss Psych: Depression, Anxiety, Bipolar disorder, Post traumatic stress disorder Musculoskeletal: Osteoarthritis, Other Derm: Psoriasis - Past Surgical History Past Surgical History: Yes General: Hiatal hernia repair, EGD Ortho: Other /COUNSELOR CAMP: section, Hysterectomy - Present Medications Home Medications: Ambulatory Orders Medication Instructions Recorded Confirmed Propranolol [Inderal] 20 mg PO TID 04/27/13 02/06/23 Enalapril [Vasotec] 5 mg ORAL BID 05/14/14 02/06/23 Citalopram Hydrobromide [Celexa] 10 mg PO DAILY 08/22/16 02/06/23 ARIPiprazole [Abilify] 20 mg PO DAILY 08/28/17 02/06/23 Meloxicam [Mobic] 15 mg PO DAILY 02/16/21 02/06/23 buPROPion [Wellbutrin Xl] 150 mg PO DAILY 02/16/21 02/06/23 Albuterol [Proventil Hfa] 2 puffs INH Q4H PRN 12/07/22 02/06/23 Lansoprazole [Prevacid] 30 mg PO QDAC 12/07/22 02/06/23 hydrOXYzine HCL [Hydroxyzine HCl] 25 mg PO DAILY PRN 12/07/22 02/06/23 ondansetron HCL [Ondansetron HCl] 8 mg PO Q8H PRN 12/07/22 02/06/23 Acetaminophen [Tylenol] 500 mg PO Q4HR PRN tab 12/10/22 02/06/23 Cod Liver Oil/Zinc Oxide [Desitin] 113 gm TOP PRN PRN each 12/10/22 02/06/23 cephALEXin [Keflex] 500 mg PO Q6H #28 cap 02/02/23 02/06/23 Ketoconazole [Nizoral A-D] 1 applic TOP Q3D 02/06/23 02/06/23 Vibegron [Gemtesa] 75 mg PO DAILY 02/06/23 02/06/23 Docusate Sodium 100Mg Capsule 100 mg PO BID #60 02/12/23 [Colace 100Mg Capsule] cephALEXin [Keflex] 500 mg PO Q6H #28 cap 03/08/23 cephALEXin [Keflex] 500 mg PO Q6H #40 cap 04/01/23 - Allergies Allergies/Adverse Reactions: Allergies Allergy/AdvReac Type Severity Reaction Status Date / Time phenazopyridine Allergy Unknown Verified 04/01/23 22:52 [From Pyridium] paroxetine HCl * [From Paxil] AdvReac Intermediate Emesis Verified 04/01/23 22:52 codeine [Codeine] AdvReac Pass Out Verified 04/01/23 22:52 - Social History Does the pt smoke?: No Smoking Status: Never smoker Does the pt drink ETOH?: No Does the pt have substance abuse?: No - Immunizations Immunizations are current?: Yes - POLST Patient has POLST: No PD ED PE NORMAL - Vitals Vital signs reviewed: Yes - General General: Alert and oriented X 3, No acute distress - Abdomen Abdomen: Normal bowel sounds, Soft, Non tender, Other (24 [place] suprapubic catheter in place with some leaking of purulent urine around it.) - Neuro Neuro: Alert and oriented X 3, Normal speech Results - Vitals Vitals: Vital Signs - 24 hr 04/01/23 22:46 Temperature 36.8 C Heart Rate 63 Respiratory 16 Rate Blood Pressure 157/122 H O2 Saturation 98 Oxygen O2 Source Room air Procedures - General procedure General procedure: I personally replaced a 24 [place] suprapubic catheter after iodine prep which she tolerated well. PD Medical Decision Making - ED course ED course: Her catheter was replaced with a 24 [place] catheter and she felt better. She felt like she had an infection and reasonable to treat. I do not see any indication for urinalysis as she never has a normal UA. Departure - Departure Disposition: 01 Home, Self Care Clinical Impression: Suprapubic catheter, Neurogenic bladder Condition: Stable Record reviewed to determine appropriate education?: Yes Instructions: ED Catheter Care Epps Prescriptions: cephALEXin [Keflex] 500 mg PO Q6H #40 cap Comments: I sent your prescription electronically to [facility] in [place]. Return for new or worsening symptoms. Follow-up with your urologist as to routine. Forms: PCP List
== END 2023-04-01 23:20 | disposition home or self-care (01) ==
LOC: EDUNIT# → ED 22:41
DX: T83.038A Leakage of other urinary catheter, initial encounter (principal); N31.9 Neuromuscular dysfunction of bladder, unspecified
CPT/HCPCS: 51702; 99283

== ENCOUNTER 2023-04-01 23:20 | Outpatient (CLI) | payer MEDICARE, MEDICAID | END 2023-04-01 23:21 | disposition home or self-care (01) | LOC: EMS 23:20 | PROVIDERS: ATTEND Emergency Medicine | DX: Z46.6 Encounter for fitting and adjustment of urinary device (principal); Z74.01 Bed confinement status | CPT/HCPCS: A0425; A0428 ==

== ENCOUNTER 2023-04-04 15:32 | Outpatient (CLI) | payer MEDICARE, MEDICAID | END 2023-04-04 23:59 | disposition critical access hospital (66) | LOC: EMS 15:32 | DX: T83.030A Leakage of cystostomy catheter, initial encounter (principal) | CPT/HCPCS: A0425; A0429 ==

== ENCOUNTER 2023-04-04 15:54 | Emergency (ER) | payer MEDICARE, MEDICAID ==
--- NOTE | 2023-04-04 16:15 | ED Physician Documentation ---
History of Present Illness - Stated complaint Stated Complaint: Leaking Cath - Additonal information Additional information: 53-year-old female who has a history of quadriplegia as well as a chronic suprapubic catheter presents to the emergency department for evaluation of a leaking catheter. This is her third visit in the last week or so for similar. Each time the catheter has been replaced but continues to leak at home. Patient is frustrated. She is currently on Keflex for a urinary tract infection prescribed by my colleague on the with her last visit. Review of Systems Constitutional: denies: Fever : reports: Other (Suprapubic catheter) PD PAST MEDICAL HISTORY - Past Medical History Cardiovascular: Hypertension Respiratory: Asthma, Other Neuro: Cerebral palsy Endocrine/Autoimmune: Other GI: GERD FIXED INTEREST DEALER: None : Indwelling catheter, Kidney stones HEENT: Chronic vision loss Psych: Depression, Anxiety, Bipolar disorder, Post traumatic stress disorder Musculoskeletal: Osteoarthritis, Other Derm: Psoriasis - Past Surgical History Past Surgical History: Yes General: Hiatal hernia repair, EGD Ortho: Other /FIXED INTEREST DEALER: section, Hysterectomy - Present Medications Home Medications: Ambulatory Orders Medication Instructions Recorded Confirmed Propranolol [Inderal] 20 mg PO TID 04/27/13 02/06/23 Enalapril [Vasotec] 5 mg ORAL BID 05/14/14 02/06/23 Citalopram Hydrobromide [Celexa] 10 mg PO DAILY 08/22/16 02/06/23 ARIPiprazole [Abilify] 20 mg PO DAILY 08/28/17 02/06/23 Meloxicam [Mobic] 15 mg PO DAILY 02/16/21 02/06/23 buPROPion [Wellbutrin Xl] 150 mg PO DAILY 02/16/21 02/06/23 Albuterol [Proventil Hfa] 2 puffs INH Q4H PRN 12/07/22 02/06/23 Lansoprazole [Prevacid] 30 mg PO QDAC 12/07/22 02/06/23 hydrOXYzine HCL [Hydroxyzine HCl] 25 mg PO DAILY PRN 12/07/22 02/06/23 ondansetron HCL [Ondansetron HCl] 8 mg PO Q8H PRN 12/07/22 02/06/23 Acetaminophen [Tylenol] 500 mg PO Q4HR PRN tab 12/10/22 02/06/23 Cod Liver Oil/Zinc Oxide [Desitin] 113 gm TOP PRN PRN each 12/10/22 02/06/23 cephALEXin [Keflex] 500 mg PO Q6H #28 cap 02/02/23 02/06/23 Ketoconazole [Nizoral A-D] 1 applic TOP Q3D 02/06/23 02/06/23 Vibegron [Gemtesa] 75 mg PO DAILY 02/06/23 02/06/23 Docusate Sodium 100Mg Capsule 100 mg PO BID #60 02/12/23 [Colace 100Mg Capsule] cephALEXin [Keflex] 500 mg PO Q6H #28 cap 03/08/23 cephALEXin [Keflex] 500 mg PO Q6H #40 cap 04/01/23 - Allergies Allergies/Adverse Reactions: Allergies Allergy/AdvReac Type Severity Reaction Status Date / Time phenazopyridine Allergy Unknown Verified 04/01/23 22:52 [From Pyridium] paroxetine HCl * [From Paxil] AdvReac Intermediate Emesis Verified 04/01/23 22:52 codeine [Codeine] AdvReac Pass Out Verified 04/01/23 22:52 - Social History Does the pt smoke?: No Smoking Status: Never smoker Does the pt drink ETOH?: No Does the pt have substance abuse?: No - Immunizations Immunizations are current?: Yes - POLST Patient has POLST: No PD ED PE EXPANDED - Abdomen Abdomen: Other (24 fr Suprapubic catheter seen exiting the lower mid pelvic region. Draining clear yellow urine without sediment however the towels and diaper surrounding the patient are saturated with urine.) Results - Vitals Vitals: Oxygen O2 Source Room air Procedures - General procedure General procedure: 24 English suprapubic catheter appears to be leaking at the stoma. I deflated the balloon and found there were 10 cc of Saline within the balloon and I then added an additional 10 cc for total volume of 20. Patient reports that she feels as though the catheter is no longer "moving around in her bladder" and it feels more secure. We will continue to monitor for leaking. PD Medical Decision Making - ED course Complexity details: d/w patient ED course: 53-year-old quadriplegic with leaking suprapubic catheter which has been replaced recently. Despite recent replacement continues to leak. I simply added another 10 cc of saline to the balloon for a total volume of approximately 20 mL. After observing for about 30 minutes there appeared to be no leakage around the gauze. I suspect the additional volume has seated it better against the bladder wall. She is discharged home in stable condition via BLS. Appropriate COBRA paperwork completed Departure - Departure Disposition: 01 Home, Self Care Clinical Impression: Suprapubic catheter dysfunction Qualifiers: Encounter type: initial encounter Qualified Code(s): T83.010A - Breakdown (mechanical) of cystostomy catheter, initial encounter Condition: Stable Record reviewed to determine appropriate education?: Yes Comments: Lidia, your catheter continued to leak despite being replaced 3 days ago. We simply added another 10 cc of saline to the catheter balloon. It now has an approximate volume of 20 mL. This seems to have stopped the leak for now. Continue follow-up with your primary care and specialists as otherwise scheduled.
[2023-04-04 16:25] VITALS: BP 144/100; O2SAT 99
== END 2023-04-04 17:49 | disposition home or self-care (01) ==
LOC: EDUNIT# → ED 15:54
DX: T83.038A Leakage of other urinary catheter, initial encounter (principal)
CPT/HCPCS: 99283

== ENCOUNTER 2023-04-04 17:30 | Outpatient (CLI) | payer MEDICARE, MEDICAID | END 2023-04-04 23:59 | disposition home or self-care (01) | LOC: EMS 17:30 | PROVIDERS: ATTEND Registered Nurse | DX: T83.030A Leakage of cystostomy catheter, initial encounter (principal); Z74.01 Bed confinement status | CPT/HCPCS: A0425; A0428 ==

== ENCOUNTER 2023-04-04 23:05 | Outpatient (CLI) | payer MEDICARE, MEDICAID | END 2023-04-04 23:59 | disposition critical access hospital (66) | LOC: EMS 23:05 | DX: T83.030A Leakage of cystostomy catheter, initial encounter (principal) | CPT/HCPCS: A0425; A0429 ==

== ENCOUNTER 2023-04-04 23:26 | Emergency (ER) | payer MEDICARE, MEDICAID ==
--- NOTE | 2023-04-04 23:33 | ED Physician Documentation ---
History of Present Illness - Stated complaint Stated Complaint: LEAKING CATHETER - Chief complaint Chief Complaint: General - History obtained from History obtained from: Patient, EMS - Additonal information Additional information: DILMAA. HPI from patient as well as EMS. This is the second visit today for the same complaint, which is urine leaking around her suprapubic catheter insertion site. She was also evaluated for the same complaint 3 days ago in this emergency department. She had several visits to this emergency department 2 months ago (January), although some of those visits were for different issues such as dyspnea. Overall, this patient has had many visits over several years for complaints related to her suprapubic catheter, most commonly leakage which she usually interprets as presence of UTI. She is currently on an antibiotic (cephalexin, 10 day course started 3 days ago). Review of Systems Constitutional: denies: Fever GI: denies: Abdominal Pain PD PAST MEDICAL HISTORY - Past Medical History Cardiovascular: Hypertension Respiratory: Asthma, Other Neuro: Cerebral palsy Endocrine/Autoimmune: Other GI: GERD PATTERN WEAVER: None : Indwelling catheter, Kidney stones HEENT: Chronic vision loss Psych: Depression, Anxiety, Bipolar disorder, Post traumatic stress disorder Musculoskeletal: Osteoarthritis, Other Derm: Psoriasis - Past Surgical History Past Surgical History: Yes General: Hiatal hernia repair, EGD Ortho: Other /PATTERN WEAVER: section, Hysterectomy - Present Medications Home Medications: Ambulatory Orders Medication Instructions Recorded Confirmed Propranolol [Inderal] 20 mg PO TID 04/27/13 02/06/23 Enalapril [Vasotec] 5 mg ORAL BID 05/14/14 02/06/23 Citalopram Hydrobromide [Celexa] 10 mg PO DAILY 08/22/16 02/06/23 ARIPiprazole [Abilify] 20 mg PO DAILY 08/28/17 02/06/23 Meloxicam [Mobic] 15 mg PO DAILY 02/16/21 02/06/23 buPROPion [Wellbutrin Xl] 150 mg PO DAILY 02/16/21 02/06/23 Albuterol [Proventil Hfa] 2 puffs INH Q4H PRN 12/07/22 02/06/23 Lansoprazole [Prevacid] 30 mg PO QDAC 12/07/22 02/06/23 hydrOXYzine HCL [Hydroxyzine HCl] 25 mg PO DAILY PRN 12/07/22 02/06/23 ondansetron HCL [Ondansetron HCl] 8 mg PO Q8H PRN 12/07/22 02/06/23 Acetaminophen [Tylenol] 500 mg PO Q4HR PRN tab 12/10/22 02/06/23 Cod Liver Oil/Zinc Oxide [Desitin] 113 gm TOP PRN PRN each 12/10/22 02/06/23 cephALEXin [Keflex] 500 mg PO Q6H #28 cap 02/02/23 02/06/23 Ketoconazole [Nizoral A-D] 1 applic TOP Q3D 02/06/23 02/06/23 Vibegron [Gemtesa] 75 mg PO DAILY 02/06/23 02/06/23 Docusate Sodium 100Mg Capsule 100 mg PO BID #60 02/12/23 [Colace 100Mg Capsule] cephALEXin [Keflex] 500 mg PO Q6H #28 cap 03/08/23 cephALEXin [Keflex] 500 mg PO Q6H #40 cap 04/01/23 - Allergies Allergies/Adverse Reactions: Allergies Allergy/AdvReac Type Severity Reaction Status Date / Time phenazopyridine Allergy Unknown Verified 04/04/23 16:18 [From Pyridium] paroxetine HCl * [From Paxil] AdvReac Intermediate Emesis Verified 04/04/23 16:18 codeine [Codeine] AdvReac Pass Out Verified 04/04/23 16:18 - Social History Does the pt smoke?: No Smoking Status: Never smoker Does the pt drink ETOH?: No Does the pt have substance abuse?: No - Immunizations Immunizations are current?: Yes - POLST Patient has POLST: No PD ED PE NORMAL - Vitals Vital signs reviewed: Yes - General General: Alert and oriented X 3, No acute distress, Well developed/nourished - Abdomen Abdomen: Soft, Non tender, Non distended, Other (Suprapubic catheter in place. At this time, no evidence of ongoing leakage. There is active urine output into the tubing of the catheter collecting system, as well. Urine appears yellow and clear.) Results - Vitals Vitals: Vital Signs - 24 hr 04/04/23 23:28 Temperature 36.4 C L Heart Rate 74 Respiratory 16 Rate Blood Pressure 144/98 H O2 Saturation 98 Oxygen O2 Source Room air PD Medical Decision Making - ED course Complexity details: considered differential, d/w patient ED course: I reviewed the ED notes from earlier today as well as the visit 3 days ago. The catheter was changed 3 days ago. Earlier today, MATTHEW Murphy deflated the catheter balloon and noted 10 cc in the syringe used to withdraw from the balloon port. MATTHEW Murphy replaced this 10cc and then instilled another 10cc for a total of 20cc into the balloon port to try to effect a better seal. Mi, ED RN notes only 15 cc in syringe when connected to the balloon port. This is again replaced; ED RN then instilled an additional 5 cc NS (for total of 20cc). Shortly thereafter, ED RN again withdrew the fluid from the balloon port and 20cc were noted, replaced into balloon. It seems unlikely that the catheter system would be failing after just having been replaced 3 days ago. Leaking of urine around the catheter at the suprapubic site has been a frequent chief complaint for this patient over many years when presenting to this ED. I advised her to seek follow up with urology as soon as can be arranged. Departure - Departure Disposition: 01 Home, Self Care Clinical Impression: Suprapubic catheter dysfunction Qualifiers: Encounter type: initial encounter Qualified Code(s): T83.010A - Breakdown (mechanical) of cystostomy catheter, initial encounter Condition: Good Instructions: ED Catheter Care Supriya Comments: At this time, there does not appear to be any leakage. I know this does little to reassure when there has been recurrent such problems. We did instill a small amount of (more) fluid into the balloon, and hopefully this will result in a good seal and prevention of further leakage. You need to follow-up with your urologist, next available appointment, for reevaluation of this recurrent issue. Forms: PCP List Discharge Date/Time: 04/05/23 00:09
[2023-04-04 23:36] VITALS: BP 144/98; O2SAT 98
== END 2023-04-05 00:09 | disposition home or self-care (01) ==
LOC: EDUNIT# → ED 23:26
DX: T83.038A Leakage of other urinary catheter, initial encounter (principal)

== ENCOUNTER 2023-04-05 00:13 | Outpatient (CLI) | payer MEDICARE, MEDICAID | END 2023-04-05 23:59 | disposition home or self-care (01) | LOC: EMS 00:13 | PROVIDERS: ATTEND Emergency Medicine | DX: R07.9 Chest pain, unspecified (principal); G82.50 Quadriplegia, unspecified | CPT/HCPCS: A0425; A0428 ==

== ENCOUNTER 2023-04-05 13:07 | Outpatient (CLI) | payer MEDICARE, MEDICAID | END 2023-04-05 13:08 | disposition critical access hospital (66) | LOC: EMS 13:07 | DX: T83.038A Leakage of other urinary catheter, initial encounter (principal) | CPT/HCPCS: A0425; A0429 ==

== ENCOUNTER 2023-04-05 13:29 | Emergency (ER) | payer MEDICARE, MEDICAID ==
[2023-04-05 13:38] VITALS: BP 158/100; O2SAT 98
[2023-04-05] MEDS ORDERED: LIDOCAINE 2% URO-JET 5 ML SYRINGE UR STA (13:43)
--- NOTE | 2023-04-05 13:45 | ED Physician Documentation ---
History of Present Illness - Stated complaint Stated Complaint: Cath issue - Chief complaint Chief Complaint: General - History obtained from History obtained from: Patient, EMS - Additonal information Additional information: Alena has cerebral palsy with neurogenic bladder and chronic suprapubic catheter. She presents by ambulance and is quite frustrated as she has had persistent leakage around her suprapubic catheter, this is her fourth visit in as many days for this. The catheter has been changed once which improved things for a time but since then has had persistent leaking despite manipulation of the catheter. She is on Keflex. Denies fevers. No pain. PD PAST MEDICAL HISTORY - Past Medical History Cardiovascular: Hypertension Respiratory: Asthma, Other Neuro: Cerebral palsy Endocrine/Autoimmune: Other GI: GERD ORGANIC EXTRACTIONS TECHNICIAN: None : Indwelling catheter, Kidney stones HEENT: Chronic vision loss Psych: Depression, Anxiety, Bipolar disorder, Post traumatic stress disorder Musculoskeletal: Osteoarthritis, Other Derm: Psoriasis - Past Surgical History Past Surgical History: Yes General: Hiatal hernia repair, EGD Ortho: Other /ORGANIC EXTRACTIONS TECHNICIAN: section, Hysterectomy - Present Medications Home Medications: Ambulatory Orders Medication Instructions Recorded Confirmed Propranolol [Inderal] 20 mg PO TID 04/27/13 02/06/23 Enalapril [Vasotec] 5 mg ORAL BID 05/14/14 02/06/23 Citalopram Hydrobromide [Celexa] 10 mg PO DAILY 08/22/16 02/06/23 ARIPiprazole [Abilify] 20 mg PO DAILY 08/28/17 02/06/23 Meloxicam [Mobic] 15 mg PO DAILY 02/16/21 02/06/23 buPROPion [Wellbutrin Xl] 150 mg PO DAILY 02/16/21 02/06/23 Albuterol [Proventil Hfa] 2 puffs INH Q4H PRN 12/07/22 02/06/23 Lansoprazole [Prevacid] 30 mg PO QDAC 12/07/22 02/06/23 hydrOXYzine HCL [Hydroxyzine HCl] 25 mg PO DAILY PRN 12/07/22 02/06/23 ondansetron HCL [Ondansetron HCl] 8 mg PO Q8H PRN 12/07/22 02/06/23 Acetaminophen [Tylenol] 500 mg PO Q4HR PRN tab 12/10/22 02/06/23 Cod Liver Oil/Zinc Oxide [Desitin] 113 gm TOP PRN PRN each 12/10/22 02/06/23 cephALEXin [Keflex] 500 mg PO Q6H #28 cap 02/02/23 02/06/23 Ketoconazole [Nizoral A-D] 1 applic TOP Q3D 02/06/23 02/06/23 Vibegron [Gemtesa] 75 mg PO DAILY 02/06/23 02/06/23 Docusate Sodium 100Mg Capsule 100 mg PO BID #60 02/12/23 [Colace 100Mg Capsule] cephALEXin [Keflex] 500 mg PO Q6H #28 cap 03/08/23 cephALEXin [Keflex] 500 mg PO Q6H #40 cap 04/01/23 - Allergies Allergies/Adverse Reactions: Allergies Allergy/AdvReac Type Severity Reaction Status Date / Time phenazopyridine Allergy Unknown Verified 04/05/23 13:32 [From Pyridium] paroxetine HCl * [From Paxil] AdvReac Intermediate Emesis Verified 04/05/23 13:32 codeine [Codeine] AdvReac Pass Out Verified 04/05/23 13:32 - Social History Does the pt smoke?: No Smoking Status: Never smoker Does the pt drink ETOH?: No Does the pt have substance abuse?: No - Immunizations Immunizations are current?: Yes - POLST Patient has POLST: No Results - Vitals Vitals: Vital Signs - 24 hr 04/05/23 13:32 Temperature 36.5 C Heart Rate 65 Respiratory 14 Rate Blood Pressure 158/100 H O2 Saturation 98 Oxygen O2 Source Room air - Rads (name of study) CT KUB Relevant Findings:: Final report received, EMP independent interpretation of test PD Medical Decision Making - ED course ED course: 53-year-old woman with neurogenic bladder related to cerebral palsy presents with persistent leakage around her suprapubic catheter which has been changed several times and she is already on antibiotics. The catheter was replaced again and she still had mild leakage around the catheter. It was replaced with a 24 [place] catheter. Given the ongoing issues a CT was done showing a right inguinal hernia, congenital sacral dysplasia, and moderate stool load. Discussed her case by phone with Dr. Parikh who does not recommend going to a larger size of the catheter. He is in agreement with a bowel regimen and she is already on antispasmodics. Recommends following up in the office for consideration for Botox. Patient quite frustrated by this, but no EMC present. Departure - Departure Disposition: 01 Home, Self Care Clinical Impression: Suprapubic catheter Suprapubic catheter dysfunction Qualifiers: Encounter type: initial encounter Qualified Code(s): T83.010A - Breakdown (mechanical) of cystostomy catheter, initial encounter Condition: Stable Record reviewed to determine appropriate education?: Yes Follow-Up: Dallas Parikh MD [Provider Admit Priv/Credential] - Comments: Given the results of your CAT scan I do think hopefully that cleaning out your bowels will be helpful for the leakage. Otherwise to follow-up with urology. Dr. Parikh was consulted and feels the neck step may be bladder Botox. Return for new or worsening symptoms.
--- NOTE | 2023-04-05 15:24 | CT Report ---
PROCEDURE: CT of abdomen and pelvis without contrast INDICATIONS: Persistent leakage around suprapubic cath TECHNIQUE: Helical axial CT of the abdomen and pelvis was obtained without intravenous contrast and reformatted in multiple planes. For radiation dose reduction, the following was used: automated exposure control, adjustment of mA and/or kV according to patient size. COMPARISON: None. FINDINGS: Lower thorax: Moderate hiatal hernia noted to. Lung bases are clear. Liver: Normal in size and attenuation. No contour deformity present. Biliary system: No calcified cholelithiasis or pericholecystic inflammation. No evidence of bile du ct dilatation. Pancreas: Unremarkable without mass or inflammation evident. Spleen: Normal in size and density. Adrenals: Normal morphology and density. Reproductive system: Unremarkable as visualized. Urinary system: Normal renal size and attenuation. No renal calculi, hydronephrosis, or solid mass p resent. Suprapubic catheter present in the decompressed bladder. No evidence of abscess along the cat heter tract Gastrointestinal system: The bowel appears unremarkable with no evidence of bowel obstruction or inf lammation. The stomach appears unremarkable. Moderate fecal debris throughout the colon. Appendix: No findings to suggest acute appendicitis. Peritoneal spaces: No mesenteric or retroperitoneal adenopathy. No free air. No free fluid. Vasculature: The IVC, aorta and iliac vasculature are unremarkable. Musculoskeletal: Large right inguinal hernia contains small bowel and extends into the right labrum. Lower lumbar spine incidental degenerative disc disease and arthropathy. 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 The urinary bladder is decompressed. Moderate hernia. Large right inguinal hernia contains bowel without obstruction. 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
[2023-04-05] MEDS ORDERED: polyethylene glycoL 3350 17 GM PACKET PO STA (15:38)
== END 2023-04-05 17:10 | disposition home or self-care (01) ==
LOC: EDUNIT# → ED 13:29
DX: T83.038A Leakage of other urinary catheter, initial encounter (principal); Z96.0 Presence of urogenital implants
CPT/HCPCS: 74176; 99283; 99284; A9270

== ENCOUNTER 2023-04-05 16:49 | Outpatient (CLI) | payer MEDICARE, MEDICAID | END 2023-04-05 16:50 | disposition home or self-care (01) | LOC: EMS 16:49 | PROVIDERS: ATTEND Emergency Medicine | DX: R07.9 Chest pain, unspecified (principal); G82.50 Quadriplegia, unspecified | CPT/HCPCS: A0425; A0428 ==

== ENCOUNTER 2023-06-29 07:08 | Outpatient (CLI) | payer MEDICARE, MEDICAID ==
[2023-06-29 13:05] LABS: CHOL/HDL RATIO 3.3 (<4.4); CHOLESTEROL 173 mg/dL; HDL CHOLESTEROL 53 mg/dL; LDL CHOLESTEROL,CALCULATED 97 mg/dL; LDL/HDL RATIO 1.8 (<4.4); TRIGLYCERIDES 115 mg/dL (48-352); VLDL CHOLESTEROL 23 mg/dL
[2023-06-29 13:30] LABS: ESTIMATED AVERAGE GLUCOSE 108 mg/dL (70-100); HEMOGLOBIN A1c% 5.4 % (4.27-6.07)
== END 2023-06-29 07:09 | disposition home or self-care (01) ==
LOC: LAB.N 07:08
PROVIDERS: ATTEND Nurse Practitioner Psychiatric/Mental Health
DX: F31.9 Bipolar disorder, unspecified (principal)
CPT/HCPCS: 36415; 80061; 82306; 83036; 83721

== ENCOUNTER 2023-07-28 10:19 | Outpatient (CLI) | payer MEDICARE, MEDICAID | END 2023-07-28 10:20 | disposition critical access hospital (66) | LOC: EMS 10:19 | DX: T83.030A Leakage of cystostomy catheter, initial encounter (principal) | CPT/HCPCS: A0425; A0429 ==

== ENCOUNTER 2023-07-28 10:39 | Emergency (ER) | payer MEDICARE, MEDICAID ==
[2023-07-28] MEDS ORDERED: LIDOCAINE 2% URO-JET 5 ML SYRINGE UR STA (10:48)
[2023-07-28 10:56] VITALS: BP 120/86; O2SAT 96
[2023-07-28] MEDS ORDERED: COD LIVER OIL/ZINC OXIDE 113 GM TUBE TOP STA (11:34)
--- NOTE | 2023-07-28 11:34 | ED Physician Documentation ---
PD HPI FEMALE - Stated complaint Stated Complaint: CATH ISSUE - Chief complaint Chief Complaint: General - History obtained from History obtained from: Patient - Additional information Additional information: Patient is a 53-year-old female With history of cerebral palsy and neurogenic bladder presenting for evaluation of clogged suprapubic catheter. Reports that stopped working out just prior to calling EMS today.Patient was scheduled to have it replaced today. Denies fever or pain. No vomiting. Review of Systems Constitutional: denies: Fever Cardiac: denies: Chest pain / pressure Respiratory: denies: Dyspnea GI: denies: Abdominal Pain : denies: Hematuria PD PAST MEDICAL HISTORY - Past Medical History Past Medical History: Yes Cardiovascular: Hypertension Respiratory: Asthma, Other Neuro: Cerebral palsy Endocrine/Autoimmune: Other GI: GERD CEMETERY MANAGER: None : Indwelling catheter, Kidney stones HEENT: Chronic vision loss Psych: Depression, Anxiety, Bipolar disorder, Post traumatic stress disorder Musculoskeletal: Osteoarthritis, Other Derm: Psoriasis - Past Surgical History Past Surgical History: Yes General: Hiatal hernia repair, EGD Ortho: Other /CEMETERY MANAGER: section, Hysterectomy - Present Medications Home Medications: Ambulatory Orders Medication Instructions Recorded Confirmed Propranolol [Inderal] 20 mg PO TID 04/27/13 02/06/23 Enalapril [Vasotec] 5 mg ORAL BID 05/14/14 02/06/23 Citalopram Hydrobromide [Celexa] 10 mg PO DAILY 08/22/16 02/06/23 ARIPiprazole [Abilify] 20 mg PO DAILY 08/28/17 02/06/23 Meloxicam [Mobic] 15 mg PO DAILY 02/16/21 02/06/23 buPROPion [Wellbutrin Xl] 150 mg PO DAILY 02/16/21 02/06/23 Albuterol [Proventil Hfa] 2 puffs INH Q4H PRN 12/07/22 02/06/23 Lansoprazole [Prevacid] 30 mg PO QDAC 12/07/22 02/06/23 hydrOXYzine HCL [Hydroxyzine HCl] 25 mg PO DAILY PRN 12/07/22 02/06/23 ondansetron HCL [Ondansetron HCl] 8 mg PO Q8H PRN 12/07/22 02/06/23 Acetaminophen [Tylenol] 500 mg PO Q4HR PRN tab 12/10/22 02/06/23 Cod Liver Oil/Zinc Oxide [Desitin] 113 gm TOP PRN PRN each 12/10/22 02/06/23 cephALEXin [Keflex] 500 mg PO Q6H #28 cap 02/02/23 02/06/23 Ketoconazole [Nizoral A-D] 1 applic TOP Q3D 02/06/23 02/06/23 Vibegron [Gemtesa] 75 mg PO DAILY 02/06/23 02/06/23 Docusate Sodium 100Mg Capsule 100 mg PO BID #60 02/12/23 [Colace 100Mg Capsule] cephALEXin [Keflex] 500 mg PO Q6H #28 cap 03/08/23 cephALEXin [Keflex] 500 mg PO Q6H #40 cap 04/01/23 - Allergies Allergies/Adverse Reactions: Allergies Allergy/AdvReac Type Severity Reaction Status Date / Time phenazopyridine Allergy Unknown Verified 04/05/23 13:32 [From Pyridium] paroxetine HCl * [From Paxil] AdvReac Intermediate Emesis Verified 04/05/23 13:32 codeine [Codeine] AdvReac Pass Out Verified 04/05/23 13:32 - Social History Does the pt smoke?: No Smoking Status: Never smoker Does the pt drink ETOH?: No Does the pt have substance abuse?: No - Immunizations Immunizations are current?: Yes - POLST Patient has POLST: No PD ED PE NORMAL - General General: Alert and oriented X 3, No acute distress, Well developed/nourished - HEENT HEENT: Atraumatic - Abdomen Abdomen: Normal bowel sounds, Soft, Non tender, Non distended, Other (Suprapubic catheter in place with no surrounding erythema, swelling or tenderness) - Neuro Neuro: Normal speech Results - Vitals Vitals: Vital Signs - 24 hr 07/28/23 10:39 Temperature 36.6 C Heart Rate 75 Respiratory 16 Rate Blood Pressure 120/86 H O2 Saturation 96 Oxygen O2 Source Room air Procedures - General procedure General procedure: Patient gave verbal consent for Epps catheter replacement. Previous catheter balloon was deflated and catheter was removed in its entirety without any difficulty. Site was cleaned And new 24 [place] Epps was inserted without any difficulty. Patient tolerated well. Attached to bag with urine drainage. PD Medical Decision Making - ED course ED course: Patient with clogged suprapubic catheter. Vital signs are stable. No symptoms to suggest UTI. New catheter was placed without any difficulty. Patient familiar with catheter care as well as Concerning symptoms to return for. Departure - Departure Disposition: 01 Home, Self Care Clinical Impression: Urinary catheter (Epps) change required, Suprapubic catheter Condition: Stable Instructions: ED Catheter Care Epps Comments: Catheter was changed. Please follow-up with your urologist as needed. Return to the ER with any issues regarding your catheter or any worsening symptoms. Forms: PCP List Discharge Date/Time: 07/28/23 13:33
== END 2023-07-28 13:33 | disposition home or self-care (01) ==
LOC: EDUNIT# → ED 10:39
DX: T83.098A Other mechanical complication of other urinary catheter, initial encounter (principal); I10 Essential (primary) hypertension; G80.9 Cerebral palsy, unspecified; Z79.899 Other long term (current) drug therapy
CPT/HCPCS: 51702; 99282; 99283; A9270

== ENCOUNTER 2023-07-28 13:35 | Outpatient (CLI) | payer MEDICARE, MEDICAID | END 2023-07-28 13:36 | disposition home or self-care (01) | LOC: EMS 13:35 | PROVIDERS: ATTEND Emergency Medicine | DX: G80.9 Cerebral palsy, unspecified (principal); G83.9 Paralytic syndrome, unspecified; Z74.01 Bed confinement status; Z96.0 Presence of urogenital implants | CPT/HCPCS: A0425; A0428 ==

== ENCOUNTER 2023-09-14 13:44 | Outpatient (CLI) | payer MEDICARE, MEDICAID | END 2023-09-14 23:59 | disposition critical access hospital (66) | LOC: EMS 13:44 | DX: L89.309 Pressure ulcer of unspecified buttock, unspecified stage (principal) | CPT/HCPCS: A0425; A0429 ==

== ENCOUNTER 2023-09-14 14:06 | Emergency (ER) | payer MEDICARE, MEDICAID ==
[2023-09-14 14:32] VITALS: O2SAT 94
[2023-09-14 14:36] LABS: BASOPHILS % (AUTO) 0.4 %; EOSINOPHILS # (AUTO) 0.3 10^3/uL (0.0-0.7); EOSINOPHILS % (AUTO) 4.3 %; HCT - HEMATOCRIT 34.6 % (37.0-47.0); HGB - HEMOGLOBIN 10.9 g/dL (12.0-16.0); LYMPHOCYTES % (AUTO) 13.2 %; MEAN CORPUSCULAR HEMOGLOBIN 26.3 pg (27.0-31.0); MEAN CORPUSCULAR HGB CONC 31.5 g/dL (32.0-36.0); MEAN CORPUSCULAR VOLUME 83.6 fL (81.0-99.0); MEAN PLATELET VOLUME 9.9 fL (7.9-10.8); MONOCYTES # (AUTO) 0.6 10^3/uL (0.0-1.0); MONOCYTES % (AUTO) 7.7 %; NEUTROPHILS # (AUTO) 5.9 10^3/uL (1.5-6.6); NEUTROPHILS % (AUTO) 74.3 %; PLT - PLATELET COUNT 217 10^3/uL (130-450); RED BLOOD COUNT 4.14 10^6/uL (4.20-5.40); RED CELL DISTRIBUTION WIDTH 13.7 % (12.0-15.0); WHITE BLOOD COUNT 7.9 x10^3/uL (4.8-10.8)
[2023-09-14 14:51] LABS: ALBUMIN 3.3 g/dL (3.2-5.5); ALBUMIN/GLOBULIN RATIO 0.9 (1.0-2.2); BILIRUBIN,TOTAL 0.2 mg/dL (0.2-1.0); CREATININE 0.6 mg/dL (0.6-1.3); CRP - C-REACTIVE PROTEIN 1.5 mg/dL (<0.5); POTASSIUM 4.3 mmol/L (3.5-4.5); TOTAL PROTEIN 6.8 g/dL (6.4-8.9)
[2023-09-14] MEDS ORDERED: BACITRACIN ZINC OINT 1 PACKET TOP STA (15:13)
--- NOTE | 2023-09-14 15:14 | ED Physician Documentation ---
PD HPI WOUND RECHECK - Stated complaint Stated Complaint: BED SORES - Chief complaint Chief Complaint: Wound - Histroy obtained from History obtained from: Patient - History of Present Illness Location: Other (left posterior thigh) Timing - onset: Chronic Pain level max: 0 Pain level now: 0 Associated symptoms: Drainage (slight drainage). No: Fever, Redness, Swelling - Additional information Additional information: Patient is a 53-year-old female who is bedbound, wheelchair-bound. Presents for evaluation of a wound on the left thigh concerning for a pressure sore. No fevers. No chills. No vomiting. No headache. They were told that wound care could not come today so the nurse that has been seeing her told her to go to the ER. Review of Systems Constitutional: denies: Fever, Chills GI: denies: Vomiting, Diarrhea Skin: denies: Rash Musculoskeletal: denies: Neck pain, Back pain Neurologic: denies: Headache PD PAST MEDICAL HISTORY - Past Medical History Past Medical History: Yes Cardiovascular: Hypertension Respiratory: Asthma, Other Neuro: Cerebral palsy Endocrine/Autoimmune: Other GI: GERD GROVE WORKER: None : Indwelling catheter, Kidney stones HEENT: Chronic vision loss Psych: Depression, Anxiety, Bipolar disorder, Post traumatic stress disorder Musculoskeletal: Osteoarthritis, Other Derm: Psoriasis - Past Surgical History Past Surgical History: Yes General: Hiatal hernia repair, EGD Ortho: Other /GROVE WORKER: section, Hysterectomy - Present Medications Home Medications: Ambulatory Orders Medication Instructions Recorded Confirmed Propranolol [Inderal] 20 mg PO TID 04/27/13 02/06/23 Enalapril [Vasotec] 5 mg ORAL BID 05/14/14 02/06/23 Citalopram Hydrobromide [Celexa] 10 mg PO DAILY 08/22/16 02/06/23 ARIPiprazole [Abilify] 20 mg PO DAILY 08/28/17 02/06/23 Meloxicam [Mobic] 15 mg PO DAILY 02/16/21 02/06/23 buPROPion [Wellbutrin Xl] 150 mg PO DAILY 02/16/21 02/06/23 Albuterol [Proventil Hfa] 2 puffs INH Q4H PRN 12/07/22 02/06/23 Lansoprazole [Prevacid] 30 mg PO QDAC 12/07/22 02/06/23 hydrOXYzine HCL [Hydroxyzine HCl] 25 mg PO DAILY PRN 12/07/22 02/06/23 ondansetron HCL [Ondansetron HCl] 8 mg PO Q8H PRN 12/07/22 02/06/23 Acetaminophen [Tylenol] 500 mg PO Q4HR PRN tab 12/10/22 02/06/23 Cod Liver Oil/Zinc Oxide [Desitin] 113 gm TOP PRN PRN each 12/10/22 02/06/23 cephALEXin [Keflex] 500 mg PO Q6H #28 cap 02/02/23 02/06/23 Ketoconazole [Nizoral A-D] 1 applic TOP Q3D 02/06/23 02/06/23 Vibegron [Gemtesa] 75 mg PO DAILY 02/06/23 02/06/23 Docusate Sodium 100Mg Capsule 100 mg PO BID #60 02/12/23 [Colace 100Mg Capsule] cephALEXin [Keflex] 500 mg PO Q6H #28 cap 03/08/23 cephALEXin [Keflex] 500 mg PO Q6H #40 cap 04/01/23 Bacitracin Zinc Oint 1 applic TOP BID #1 each 09/14/23 - Allergies Allergies/Adverse Reactions: Allergies Allergy/AdvReac Type Severity Reaction Status Date / Time phenazopyridine Allergy Unknown Verified 09/14/23 15:12 [From Pyridium] paroxetine HCl * [From Paxil] AdvReac Intermediate Emesis Verified 09/14/23 15:12 codeine [Codeine] AdvReac Pass Out Verified 09/14/23 15:12 - Social History Does the pt smoke?: No Smoking Status: Never smoker Does the pt drink ETOH?: No Does the pt have substance abuse?: No - Immunizations Immunizations are current?: Yes - POLST Patient has POLST: No PD ED PE NORMAL - Vitals Vital signs reviewed: Yes - General General: Alert and oriented X 3, No acute distress - Derm Derm: Warm and dry - Extremities Extremities: Other (Small 0.5 cm superficial skin ulceration to the posterior left thigh. No surrounding erythema. No active drainage. No purulence.) - Neuro Neuro: Alert and oriented X 3 - Psych Psych: Normal mood Results - Vitals Vitals: Vital Signs - 24 hr 09/14/23 14:12 Temperature 36.4 C L Heart Rate 65 Respiratory 16 Rate Blood Pressure 136/93 H O2 Saturation 94 Oxygen O2 Source Room air - Labs Labs: Laboratory Tests 09/14/23 09/14/23 09/14/23 14:30 14:30 14:30 WBC 7.9 RBC 4.14 L Hgb 10.9 L Hct 34.6 L MCV 83.6 MCH 26.3 L MCHC 31.5 L RDW 13.7 Plt Count 217 MPV 9.9 Neut # (Auto) 5.9 Lymph # (Auto) 1.0 L [place] # (Auto) 0.6 Eos # (Auto) 0.3 Baso # (Auto) 0.0 Absolute Nucleated RBC 0.00 Nucleated RBC % 0.0 ESR 29 Sodium 133 L Potassium 4.3 Chloride 101 Carbon Dioxide 27 Anion Gap 5.0 L BUN 14 Creatinine 0.6 Estimated GFR (MDRD) 104 Glucose 108 H Calcium 9.0 Total Bilirubin 0.2 AST 9 L ALT 7 L Alkaline Phosphatase 82 C-Reactive Protein 1.5 H Total Protein 6.8 Albumin 3.3 Globulin 3.5 Albumin/Globulin Ratio 0.9 L PD Medical Decision Making - ED course Complexity details: reviewed results, re-evaluated patient, considered differential (No sepsis. No cellulitis.), d/w patient, d/w family ED course: Patient with a small superficial skin ulceration. Does not appear acutely infected. Laboratory testing does not show any evidence of sepsis. No fevers. Patient is well-appearing, nontoxic. I did have the wound care nurse come and see the patient in the emergency department, a new dressing was applied along with bacitracin. Patient does not meet any criteria for admission at this time. Can continue dressing changes at home with her caregivers. Patient counseled regarding signs and symptoms for which I believe and urgent re-evaluation would be necessary. Patient with good understanding of and agreement to plan and is comfortable going home at this time This document was made in part using voice recognition software. While efforts are made to proofread this document, sound alike and grammatical errors may occur. Social work also saw the patient to offer any resources. Departure - Departure Disposition: Home, Self Care Clinical Impression: Pressure ulcer Qualifiers: Pressure injury location: thigh Pressure injury stage: unstageable Laterality: left Qualified Code(s): L89.220 - Pressure ulcer of left hip, unstageable Condition: Good Instructions: Pressure Ulcer Common Sites Follow-Up: your,doctor in 1 week [Other] Prescriptions: Bacitracin Zinc Oint 1 applic TOP BID #1 each Comments: Your prescription was sent to the [facility] pharmacy in [place]. Please follow-up with her doctor for further care. Please continue the dressing changes as directed by wound care today. Please return for fevers, increasing redness, swelling or drainage. Forms: PCP List
[2023-09-14 15:48] VITALS: BP 134/76
== END 2023-09-14 15:41 | disposition home or self-care (01) ==
LOC: EDUNIT# → ED 14:06
DX: L89.220 Pressure ulcer of left hip, unstageable (principal); Z99.3 Dependence on wheelchair; Z74.01 Bed confinement status; I10 Essential (primary) hypertension
CPT/HCPCS: 36415; 80053; 85025; 85651; 86140; 99283; A9270

== ENCOUNTER 2023-09-14 15:43 | Outpatient (CLI) | payer MEDICARE, MEDICAID | END 2023-09-14 23:59 | disposition home or self-care (01) | LOC: EMS 15:43 | PROVIDERS: ATTEND Emergency Medicine | DX: G82.50 Quadriplegia, unspecified (principal); Z74.01 Bed confinement status; L89.309 Pressure ulcer of unspecified buttock, unspecified stage | CPT/HCPCS: A0425; A0428 ==

== ENCOUNTER 2023-09-15 11:50 | Outpatient (CLI) | payer MEDICARE, MEDICAID | END 2023-09-15 23:59 | disposition critical access hospital (66) | LOC: EMS 11:50 | DX: T83.098A Other mechanical complication of other urinary catheter, initial encounter (principal) | CPT/HCPCS: A0425; A0429 ==

== ENCOUNTER 2023-09-15 12:12 | Emergency (ER) | payer MEDICARE, MEDICAID ==
[2023-09-15] MEDS ORDERED: LORazepam 2 MG/ML VIAL IM STA (12:14)
[2023-09-15 12:18] VITALS: BP 148/102; O2SAT 96
--- NOTE | 2023-09-15 12:34 | ED Physician Documentation ---
History of Present Illness - Stated complaint Stated Complaint: CATH ISSUE - Chief complaint Chief Complaint: General - History obtained from History obtained from: Patient - History of Present Illness Timing: Today Pain level max: 0 Pain level now: 0 - Additonal information Additional information: 53-year-old female with a chronic indwelling suprapubic catheter. The catheter broke and fell out today at home. Here to have the catheter replaced. No other complaints. No abdominal pain, fevers, vomiting. 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 : Indwelling catheter, Kidney stones HEENT: Chronic vision loss Psych: Depression, Anxiety, Bipolar disorder, Post traumatic stress disorder Musculoskeletal: Osteoarthritis, Other Derm: Psoriasis - Past Surgical History Past Surgical History: Yes General: Hiatal hernia repair, EGD Ortho: Other /AUTO BODY DETAILER: section, Hysterectomy - Present Medications Home Medications: Ambulatory Orders Medication Instructions Recorded Confirmed Propranolol [Inderal] 20 mg PO TID 04/27/13 02/06/23 Enalapril [Vasotec] 5 mg ORAL BID 05/14/14 02/06/23 Citalopram Hydrobromide [Celexa] 10 mg PO DAILY 08/22/16 02/06/23 ARIPiprazole [Abilify] 20 mg PO DAILY 08/28/17 02/06/23 Meloxicam [Mobic] 15 mg PO DAILY 02/16/21 02/06/23 buPROPion [Wellbutrin Xl] 150 mg PO DAILY 02/16/21 02/06/23 Albuterol [Proventil Hfa] 2 puffs INH Q4H PRN 12/07/22 02/06/23 Lansoprazole [Prevacid] 30 mg PO QDAC 12/07/22 02/06/23 hydrOXYzine HCL [Hydroxyzine HCl] 25 mg PO DAILY PRN 12/07/22 02/06/23 ondansetron HCL [Ondansetron HCl] 8 mg PO Q8H PRN 12/07/22 02/06/23 Acetaminophen [Tylenol] 500 mg PO Q4HR PRN tab 12/10/22 02/06/23 Cod Liver Oil/Zinc Oxide [Desitin] 113 gm TOP PRN PRN each 12/10/22 02/06/23 cephALEXin [Keflex] 500 mg PO Q6H #28 cap 02/02/23 02/06/23 Ketoconazole [Nizoral A-D] 1 applic TOP Q3D 02/06/23 02/06/23 Vibegron [Gemtesa] 75 mg PO DAILY 02/06/23 02/06/23 Docusate Sodium 100Mg Capsule 100 mg PO BID #60 02/12/23 [Colace 100Mg Capsule] cephALEXin [Keflex] 500 mg PO Q6H #28 cap 03/08/23 cephALEXin [Keflex] 500 mg PO Q6H #40 cap 04/01/23 Bacitracin Zinc Oint 1 applic TOP BID #1 each 09/14/23 - Allergies Allergies/Adverse Reactions: Allergies Allergy/AdvReac Type Severity Reaction Status Date / Time phenazopyridine Allergy Unknown Verified 09/15/23 12:18 [From Pyridium] paroxetine HCl * [From Paxil] AdvReac Intermediate Emesis Verified 09/15/23 12:18 codeine [Codeine] AdvReac Pass Out Verified 09/15/23 12:18 - Social History Does the pt smoke?: No Smoking Status: Never smoker Does the pt drink ETOH?: No Does the pt have substance abuse?: No - Immunizations Immunizations are current?: Yes - POLST Patient has POLST: No PD ED PE NORMAL - Vitals Vital signs reviewed: Yes - General General: Alert and oriented X 3, No acute distress - HEENT HEENT: Moist mucous membranes - Neck Neck: Supple, no meningeal sign - Cardiac Cardiac: RRR - Respiratory Respiratory: No respiratory distress, Clear bilaterally - Abdomen Abdomen: Soft, Non tender, Non distended, Other (Suprapubic stoma is open without signs of infection) - Derm Derm: Warm and dry Results - Vitals Vitals: Vital Signs - 24 hr 09/15/23 12:15 Temperature 36.1 C L Heart Rate 66 Respiratory 20 Rate Blood Pressure 148/102 H O2 Saturation 96 Oxygen O2 Source Room air PD Medical Decision Making - ED course Complexity details: reviewed results, re-evaluated patient, considered diffe will, d/w patient ED course: The suprapubic catheter was replaced with a 24 [place]ian Epps catheter. Sterile technique was used. The area was cleansed with chlorhexidine and then Betadine. The catheter passed easily, drained clear urine. Balloon inflated without any pain. Secured to the right leg. We will have the patient follow-up with her doctor for further care. Patient counseled regarding signs and symptoms for which I believe and urgent re-evaluation would be necessary. Patient with good understanding of and agreement to plan and is comfortable going home at this time This document was made in part using voice recognition software. While efforts are made to proofread this document, sound alike and grammatical errors may occur. Departure - Departure Disposition: 01 Home, Self Care Clinical Impression: Suprapubic catheter Condition: Good Instructions: ED Catheter Care Peps Follow-Up: your,doctor as needed [Other] Comments: Your suprapubic catheter was replaced today. Please follow-up with your doctor as needed for any further care. Please return if you worsen. Forms: PCP List Discharge Date/Time: 09/15/23 12:38
== END 2023-09-15 12:38 | disposition home or self-care (01) ==
LOC: EDUNIT# → ED 12:12
DX: Z46.6 Encounter for fitting and adjustment of urinary device (principal); I10 Essential (primary) hypertension; G80.9 Cerebral palsy, unspecified; Z79.899 Other long term (current) drug therapy
CPT/HCPCS: 51702; 96372; 99283; J2060

== ENCOUNTER 2023-09-15 12:40 | Outpatient (CLI) | payer MEDICARE, MEDICAID | END 2023-09-15 23:59 | disposition home or self-care (01) | LOC: EMS 12:40 | PROVIDERS: ATTEND Emergency Medicine | DX: Z46.6 Encounter for fitting and adjustment of urinary device (principal) | CPT/HCPCS: A0425; A0428 ==

== ENCOUNTER 2023-09-28 20:52 | Outpatient (CLI) | payer MEDICARE, MEDICAID | END 2023-09-28 20:53 | disposition critical access hospital (66) | LOC: EMS 20:52 | DX: T83.038A Leakage of other urinary catheter, initial encounter (principal) | CPT/HCPCS: A0425; A0429 ==

== ENCOUNTER 2023-09-28 21:11 | Emergency (ER) | payer MEDICARE, MEDICAID ==
--- NOTE | 2023-09-28 21:26 | ED Physician Documentation ---
PD HPI FEMALE - Stated complaint Stated Complaint: CATHETER IS CLOGGED - History obtained from History obtained from: Patient - Additional information Additional information: Patient is a 53-year-old female with a chronic indwelling suprapubic catheter presenting for catheter no longer draining. She states this started this evening. She reports she feels like the catheter needs to be replaced. She states it was scheduled to be replaced tomorrow. Denies fever. No abdominal pain. No vomiting. She denies change in appearance to urine. 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: None : Indwelling catheter, Kidney stones HEENT: Chronic vision loss Psych: Depression, Anxiety, Bipolar disorder, Post traumatic stress disorder Musculoskeletal: Osteoarthritis, Other Derm: Psoriasis - Past Surgical History Past Surgical History: Yes General: Hiatal hernia repair, EGD Ortho: Other /ENVELOPE ADDRESSER: section, Hysterectomy - Present Medications Home Medications: Ambulatory Orders Medication Instructions Recorded Confirmed Propranolol [Inderal] 20 mg PO TID 04/27/13 02/06/23 Enalapril [Vasotec] 5 mg ORAL BID 05/14/14 02/06/23 Citalopram Hydrobromide [Celexa] 10 mg PO DAILY 08/22/16 02/06/23 ARIPiprazole [Abilify] 20 mg PO DAILY 08/28/17 02/06/23 Meloxicam [Mobic] 15 mg PO DAILY 02/16/21 02/06/23 buPROPion [Wellbutrin Xl] 150 mg PO DAILY 02/16/21 02/06/23 Albuterol [Proventil Hfa] 2 puffs INH Q4H PRN 12/07/22 02/06/23 Lansoprazole [Prevacid] 30 mg PO QDAC 12/07/22 02/06/23 hydrOXYzine HCL [Hydroxyzine HCl] 25 mg PO DAILY PRN 12/07/22 02/06/23 ondansetron HCL [Ondansetron HCl] 8 mg PO Q8H PRN 12/07/22 02/06/23 Acetaminophen [Tylenol] 500 mg PO Q4HR PRN tab 12/10/22 02/06/23 Cod Liver Oil/Zinc Oxide [Desitin] 113 gm TOP PRN PRN each 12/10/22 02/06/23 cephALEXin [Keflex] 500 mg PO Q6H #28 cap 02/02/23 02/06/23 Ketoconazole [Nizoral A-D] 1 applic TOP Q3D 02/06/23 02/06/23 Vibegron [Gemtesa] 75 mg PO DAILY 02/06/23 02/06/23 Docusate Sodium 100Mg Capsule 100 mg PO BID #60 02/12/23 [Colace 100Mg Capsule] cephALEXin [Keflex] 500 mg PO Q6H #28 cap 03/08/23 cephALEXin [Keflex] 500 mg PO Q6H #40 cap 04/01/23 Bacitracin Zinc Oint 1 applic TOP BID #1 each 09/14/23 - Allergies Allergies/Adverse Reactions: Allergies Allergy/AdvReac Type Severity Reaction Status Date / Time phenazopyridine Allergy Unknown Verified 09/28/23 22:13 [From Pyridium] paroxetine HCl * [From Paxil] AdvReac Intermediate Emesis Verified 09/28/23 22:13 codeine [Codeine] AdvReac Pass Out Verified 09/28/23 22:13 - Social History Does the pt smoke?: No Smoking Status: Never smoker Does the pt drink ETOH?: No Does the pt have substance abuse?: No - Immunizations Immunizations are current?: Yes - POLST Patient has POLST: No PD ED PE NORMAL - General General: Alert and oriented X 3, No acute distress - HEENT HEENT: Atraumatic, Moist mucous membranes - Neck Neck: Supple, no meningeal sign - Cardiac Cardiac: RRR - Respiratory Respiratory: No respiratory distress - Abdomen Abdomen: Soft, Non tender, Non distended, Other (Suprapubic catheter, stoma without signs of infection) - Derm Derm: Warm and dry Results - Vitals Vitals: Vital Signs - 24 hr 09/28/23 21:13 Temperature 37.6 C Heart Rate 64 Respiratory 16 Rate Blood Pressure 130/91 H O2 Saturation 95 Oxygen O2 Source Room air Procedures - General procedure General procedure: Prior Epps catheter was removed in its entirety after the balloon was completely deflated. Area was cleaned with Betadine and a new 24 [place] Epps catheter was inserted without any difficulty. Clear urine present in the tubing. Balloon inflated without any difficulty and without pain. It was se cured to her right leg. PD Medical Decision Making - ED course ED course: Patient presenting for evaluation of difficulties with her suprapubic catheter. She has a chronic suprapubic catheter in place and often presents requiring change of the catheter. A new 24 Austrian Epps catheter was placed using sterile technique.Clear urine was draining into the tubing and into the new bag. It was secured to the right leg. Patient understands importance of follow-up with her urologist. Also understands concerning symptoms to return for. Departure - Departure Disposition: 01 Home, Self Care Clinical Impression: Chronic indwelling Epps catheter, Urinary catheter (Epps) change required Condition: Stable Instructions: ED Catheter Care Epps Comments: Your catheter was changed for a another 24 Austrian Epps without any difficulty.Please have follow-up with your urologist.Return to the ER with any worsening symptoms. Discharge Date/Time: 09/28/23 21:34
[2023-09-28 21:34] VITALS: BP 130/91; O2SAT 95
== END 2023-09-28 21:34 | disposition home or self-care (01) ==
LOC: EDUNIT# → ED 21:11
DX: T83.9XXA Unspecified complication of genitourinary prosthetic device, implant and graft, initial encounter (principal); G80.8 Other cerebral palsy
CPT/HCPCS: 51705; 99283

== ENCOUNTER 2023-09-28 21:36 | Outpatient (CLI) | payer MEDICARE, MEDICAID | END 2023-09-28 21:37 | disposition home or self-care (01) | LOC: EMS 21:36 | PROVIDERS: ATTEND Emergency Medicine | DX: Z46.6 Encounter for fitting and adjustment of urinary device (principal); G82.20 Paraplegia, unspecified | CPT/HCPCS: A0425; A0428 ==

== ENCOUNTER 2023-10-11 16:05 | Outpatient (CLI) | payer MEDICARE, MEDICAID | END 2023-10-11 23:59 | disposition critical access hospital (66) | LOC: EMS 16:05 | DX: T83.038A Leakage of other urinary catheter, initial encounter (principal); G80.9 Cerebral palsy, unspecified | CPT/HCPCS: A0425; A0429 ==

== ENCOUNTER 2023-10-11 16:25 | Emergency (ER) | payer MEDICARE, MEDICAID ==
[2023-10-11] MEDS ORDERED: LIDOCAINE 2% URO-JET 5 ML SYRINGE UR STA (16:31)
--- NOTE | 2023-10-11 16:32 | ED Physician Documentation ---
History of Present Illness - Stated complaint Stated Complaint: CATH ISSUE - History obtained from History obtained from: Patient - Additonal information Additional information: She has a chronic indwelling suprapubic catheter and feels like it plugged up in the last hour or so. Would like it replaced. No symptoms of infection such as flank pain, fevers. 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 : Indwelling catheter, Kidney stones HEENT: Chronic vision loss Psych: Depression, Anxiety, Bipolar disorder, Post traumatic stress disorder Musculoskeletal: Osteoarthritis, Other Derm: Psoriasis - Past Surgical History Past Surgical History: Yes General: Hiatal hernia repair, EGD Ortho: Other /ULTRASONIC SOLDERER: section, Hysterectomy - Present Medications Home Medications: Ambulatory Orders Medication Instructions Recorded Confirmed Propranolol [Inderal] 20 mg PO TID 04/27/13 02/06/23 Enalapril [Vasotec] 5 mg ORAL BID 05/14/14 02/06/23 Citalopram Hydrobromide [Celexa] 10 mg PO DAILY 08/22/16 02/06/23 ARIPiprazole [Abilify] 20 mg PO DAILY 08/28/17 02/06/23 Meloxicam [Mobic] 15 mg PO DAILY 02/16/21 02/06/23 buPROPion [Wellbutrin Xl] 150 mg PO DAILY 02/16/21 02/06/23 Albuterol [Proventil Hfa] 2 puffs INH Q4H PRN 12/07/22 02/06/23 Lansoprazole [Prevacid] 30 mg PO QDAC 12/07/22 02/06/23 hydrOXYzine HCL [Hydroxyzine HCl] 25 mg PO DAILY PRN 12/07/22 02/06/23 ondansetron HCL [Ondansetron HCl] 8 mg PO Q8H PRN 12/07/22 02/06/23 Acetaminophen [Tylenol] 500 mg PO Q4HR PRN tab 12/10/22 02/06/23 Cod Liver Oil/Zinc Oxide [Desitin] 113 gm TOP PRN PRN each 12/10/22 02/06/23 cephALEXin [Keflex] 500 mg PO Q6H #28 cap 02/02/23 02/06/23 Ketoconazole [Nizoral A-D] 1 applic TOP Q3D 02/06/23 02/06/23 Vibegron [Gemtesa] 75 mg PO DAILY 02/06/23 02/06/23 Docusate Sodium 100Mg Capsule 100 mg PO BID #60 02/12/23 [Colace 100Mg Capsule] cephALEXin [Keflex] 500 mg PO Q6H #28 cap 03/08/23 cephALEXin [Keflex] 500 mg PO Q6H #40 cap 04/01/23 Bacitracin Zinc Oint 1 applic TOP BID #1 each 09/14/23 - Allergies Allergies/Adverse Reactions: Allergies Allergy/AdvReac Type Severity Reaction Status Date / Time phenazopyridine Allergy Unknown Verified 10/11/23 16:27 [From Pyridium] paroxetine HCl * [From Paxil] AdvReac Intermediate Emesis Verified 10/11/23 16:27 codeine [Codeine] AdvReac Pass Out Verified 10/11/23 16:27 trazodone AdvReac Rash Verified 10/11/23 16:35 - Social History Does the pt smoke?: No Smoking Status: Never smoker Does the pt drink ETOH?: No Does the pt have substance abuse?: No - Immunizations Immunizations are current?: Yes - POLST Patient has POLST: No Results - Vitals Vitals: Vital Signs - 24 hr 10/11/23 16:27 Temperature 36.4 C L Heart Rate 62 Respiratory 12 Rate Blood Pressure 148/102 H O2 Saturation 96 Oxygen O2 Source Room air Procedures - General procedure General procedure: 24 Gabonese Epps used to replace her suprapubic catheter after iodine prep without issue. Departure - Departure Disposition: 01 Home, Self Care Clinical Impression: Suprapubic catheter Condition: Good Record reviewed to determine appropriate education?: Yes Instructions: ED Catheter Care Epps
[2023-10-11 16:44] VITALS: BP 148/102; O2SAT 96
== END 2023-10-11 17:05 | disposition home or self-care (01) ==
LOC: EDUNIT# → ED 16:25
DX: T83.098A Other mechanical complication of other urinary catheter, initial encounter (principal); Y82.8 Other medical devices associated with adverse incidents
CPT/HCPCS: 51705; 99283

== ENCOUNTER 2023-10-11 17:15 | Outpatient (CLI) | payer MEDICARE, MEDICAID | END 2023-10-11 23:59 | disposition home or self-care (01) | LOC: EMS 17:15 | PROVIDERS: ATTEND Emergency Medicine | DX: G80.9 Cerebral palsy, unspecified (principal) | CPT/HCPCS: A0425; A0428 ==

== ENCOUNTER 2023-11-23 11:34 | Outpatient (CLI) | payer MEDICARE, MEDICAID | END 2023-11-23 23:59 | disposition critical access hospital (66) | LOC: EMS 11:34 | DX: R10.84 Generalized abdominal pain (principal); R19.37 Generalized abdominal rigidity; R11.0 Nausea; R39.89 Other symptoms and signs involving the genitourinary system | CPT/HCPCS: A0425; A0427 ==

== ENCOUNTER 2023-11-23 11:57 | Emergency (ER) | payer MEDICARE, MEDICAID ==
--- NOTE | 2023-11-23 12:10 | ED Physician Documentation ---
History of Present Illness - Stated complaint Stated Complaint: SIDE/RIB PX - History obtained from History obtained from: Patient, EMS - Additonal information Additional information: She has a history of cerebral palsy with neurogenic bladder and suprapubic catheter and recurrent UTIs. Last evening around 8 PM she developed bilateral low rib pain on either side. It is severe and associated with constipation only having had a small bowel movement yesterday. She was brought in by ambulance and noted to be borderline hypotensive en route. Prior to hospital arrival she received Toradol, fentanyl, and Zofran with modest to no relief of her symptoms. Of note she seems mildly encephalopathic and slow to answer questions here, I queried the paramedics who state that was already notable prior to fentanyl administration. 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 : Indwelling catheter, Kidney stones HEENT: Chronic vision loss Psych: Depression, Anxiety, Bipolar disorder, Post traumatic stress disorder Musculoskeletal: Osteoarthritis, Other Derm: Psoriasis - Past Surgical History Past Surgical History: Yes General: Hiatal hernia repair, EGD Ortho: Other /TOOL TECHNICIAN: section, Hysterectomy - Present Medications Home Medications: Ambulatory Orders Medication Instructions Recorded Confirmed Propranolol [Inderal] 20 mg PO TID 04/27/13 02/06/23 Enalapril [Vasotec] 5 mg ORAL BID 05/14/14 02/06/23 Citalopram Hydrobromide [Celexa] 10 mg PO DAILY 08/22/16 02/06/23 ARIPiprazole [Abilify] 20 mg PO DAILY 08/28/17 02/06/23 Meloxicam [Mobic] 15 mg PO DAILY 02/16/21 02/06/23 buPROPion [Wellbutrin Xl] 150 mg PO DAILY 02/16/21 02/06/23 Albuterol [Proventil Hfa] 2 puffs INH Q4H PRN 12/07/22 02/06/23 Lansoprazole [Prevacid] 30 mg PO QDAC 12/07/22 02/06/23 hydrOXYzine HCL [Hydroxyzine HCl] 25 mg PO DAILY PRN 12/07/22 02/06/23 ondansetron HCL [Ondansetron HCl] 8 mg PO Q8H PRN 12/07/22 02/06/23 Acetaminophen [Tylenol] 500 mg PO Q4HR PRN tab 12/10/22 02/06/23 Cod Liver Oil/Zinc Oxide [Desitin] 113 gm TOP PRN PRN each 12/10/22 02/06/23 cephALEXin [Keflex] 500 mg PO Q6H #28 cap 02/02/23 02/06/23 Ketoconazole [Nizoral A-D] 1 applic TOP Q3D 02/06/23 02/06/23 Vibegron [Gemtesa] 75 mg PO DAILY 02/06/23 02/06/23 Docusate Sodium 100Mg Capsule 100 mg PO BID #60 02/12/23 [Colace 100Mg Capsule] cephALEXin [Keflex] 500 mg PO Q6H #28 cap 03/08/23 cephALEXin [Keflex] 500 mg PO Q6H #40 cap 04/01/23 Bacitracin Zinc Oint 1 applic TOP BID #1 each 09/14/23 - Allergies Allergies/Adverse Reactions: Allergies Allergy/AdvReac Type Severity Reaction Status Date / Time phenazopyridine Allergy Unknown Verified 11/23/23 12:10 [From Pyridium] paroxetine HCl * [From Paxil] AdvReac Intermediate Emesis Verified 11/23/23 12:10 codeine [Codeine] AdvReac Pass Out Verified 11/23/23 12:10 trazodone AdvReac Rash Verified 11/23/23 12:10 - Social History Does the pt smoke?: No Smoking Status: Never smoker Does the pt drink ETOH?: No Does the pt have substance abuse?: No - Immunizations Immunizations are current?: Yes - POLST Patient has POLST: No PD ED PE NORMAL - Vitals Vital signs reviewed: Yes - General General: Other (She is slow to answer questions with delayed responses and she appears ill but is alert and oriented.) - Cardiac Cardiac: RRR, No murmur - Respiratory Respiratory: No respiratory distress, Clear bilaterally - Abdomen Abdomen: Other (Somewhat distended abdomen not clearly tender though.) - Neuro Neuro: Alert and oriented X 3 Eye Opening: Spontaneous Motor: Obeys Commands Verbal: Oriented GCS Score: 15 Results - Vitals Vitals: Vital Signs - 24 hr 11/23/23 11/23/23 11/23/23 12:05 12:10 14:10 Temperature 36.5 C 36.5 C Heart Rate 101 H 101 H 93 Respiratory 18 18 18 Rate Blood Pressure 109/90 H 109/90 H 110/90 H O2 Saturation 93 93 88 L If not protocol : Oxygen Flow, liters/minute 11/23/23 11/23/23 16:36 18:00 Temperature Heart Rate 101 H 94 Respiratory 20 16 Rate Blood Pressure 162/104 H 145/78 H O2 Saturation 96 96 If not protocol 2 : Oxygen Flow, liters/minute Oxygen O2 Source Room air Oxygen Flow Rate 2 - EKG (time done) 1218 EKG releavant findings:: EKG personally interpreted by author of this note. Relevant findings are: Rate: Rate (enter#) Rhythm: NSR [place]: LAD Intervals: Normal NM QRS: Low voltage Ischemia: Non specific changes Compare to prior EKG: Changed from prior EKG (The last EKG on the chart dated May 09, 2022 she has significant anterior T wave inversion. At that time though she was uroseptic with demand ischemia and positive troponins so presume today's EKG represents resolution of that.) Computer interpretation: Agree with computer - Labs Labs: Laboratory Tests 11/23/23 11/23/23 11/23/23 12:15 12:15 12:15 WBC 21.0 H RBC 5.09 Hgb 12.7 Hct 41.7 MCV 81.9 MCH 25.0 L MCHC 30.5 L RDW 14.8 Plt Count 363 MPV 10.5 Neut # (Auto) Not Reportable Lymph # (Auto) Not Reportable [place] # (Auto) Not Reportable Eos # (Auto) Not Reportable Baso # (Auto) Not Reportable Absolute Nucleated RBC Not Reportable Total Counted 100 Band Neuts % (Manual) 2 Reactive Lymphs % (Man) 1 Abnorm Lymph % (Manual) 0 Nucleated RBC % Not Reportable Neutrophils # (Manual) 19.5 H Lymphocytes # (Manual) 0.2 L Monocytes # (Manual) 1.1 H Eosinophils # (Manual) 0.2 Basophils # (Manual) 0.0 Differential Comment MANUAL DIFFERENTIAL RBC Morph Micro Appear 1+ ANISOCYTOSIS PT 13.5 H INR 1.2 Sodium Cancelled Potassium Cancelled Chloride Cancelled Carbon Dioxide Cancelled Anion Gap Cancelled BUN Cancelled Creatinine Cancelled Estimated GFR (MDRD) Cancelled Glucose Cancelled Lactic Acid Calcium Cancelled Total Bilirubin Cancelled AST Cancelled ALT Cancelled Alkaline Phosphatase Cancelled Troponin I High Sens Total Protein Cancelled Albumin Cancelled Globulin Cancelled Albumin/Globulin Ratio Cancelled Lipase Cancelled Urine Color Urine Clarity Urine pH Ur Specific [place] Urine Protein Urine Glucose (UA) Urine Ketones Urine Occult Blood Urine Nitrite Urine Bilirubin Urine Urobilinogen Ur Leukocyte Esterase Urine RBC Urine WBC Urine WBC Clumps Ur Squamous Epith Cells Urine Crystals Urine Bacteria Urine Casts Ur Microscopic Review Urine Culture Comments Nasal Adenovirus (PCR) Nasal B. parapertussis DNA (PCR) Nasal Coronavir 229E PCR Nasal Coronavir HKU1 PCR Nasal Coronavir NL63 PCR Nasal Coronavir OC43 PCR Nasal Enterovir/Rhinovir PCR Nasal Influenza B PCR Nasal Influenza A PCR Nasal Parainfluen 1 PCR Nasal Parainfluen 2 PCR Nasal Parainfluen 3 PCR Nasal Parainfluen 4 PCR Nasal RSV (PCR) Nasal B.pertussis DNA PCR Nasal C.pneumoniae (PCR) Pool Human Metapneumo PCR Nasal M.pneumoniae (PCR) Nasal SARS-CoV-2 (PCR) 11/23/23 11/23/23 11/23/23 12:15 12:15 13:13 WBC RBC Hgb Hct MCV MCH MCHC RDW Plt Count MPV Neut # (Auto) Lymph # (Auto) [place] # (Auto) Eos # (Auto) Baso # (Auto) Absolute Nucleated RBC Total Counted Band Neuts % (Manual) Reactive Lymphs % (Man) Abnorm Lymph % (Manual) Nucleated RBC % Neutrophils # (Manual) Lymphocytes # (Manual) Monocytes # (Manual) Eosinophils # (Manual) Basophils # (Manual) Differential Comment RBC Morph Micro Appear PT INR Sodium 132 L Potassium 4.7 H Chloride 101 Carbon Dioxide 21 Anion Gap 10.0 BUN 25 H Creatinine 0.8 Estimated GFR (MDRD) 75 L Glucose 143 H Lactic Acid 1.0 Calcium 9.3 Total Bilirubin 0.3 AST 10 ALT 7 L Alkaline Phosphatase 85 Troponin I High Sens < 2.3 L Total Protein 7.5 Albumin 3.9 Globulin 3.6 Albumin/Globulin Ratio 1.1 Lipase 18 Urine Color Urine Clarity Urine pH Ur Specific [place] Urine Protein Urine Glucose (UA) Urine Ketones Urine Occult Blood Urine Nitrite Urine Bilirubin Urine Urobilinogen Ur Leukocyte Esterase Urine RBC Urine WBC Urine WBC Clumps Ur Squamous Epith Cells Urine Crystals Urine Bacteria Urine Casts Ur Microscopic Review Urine Culture Comments Nasal Adenovirus (PCR) Nasal B. parapertussis DNA (PCR) Nasal Coronavir 229E PCR Nasal Coronavir HKU1 PCR Nasal Coronavir NL63 PCR Nasal Coronavir OC43 PCR Nasal Enterovir/Rhinovir PCR Nasal Influenza B PCR Nasal Influenza A PCR Nasal Parainfluen 1 PCR Nasal Parainfluen 2 PCR Nasal Parainfluen 3 PCR Nasal Parainfluen 4 PCR Nasal RSV (PCR) Nasal B.pertussis DNA PCR Nasal C.pneumoniae (PCR) Pool Human Metapneumo PCR Nasal M.pneumoniae (PCR) Nasal SARS-CoV-2 (PCR) 11/23/23 11/23/23 14:00 16:40 WBC RBC Hgb Hct MCV MCH MCHC RDW Plt Count MPV Neut # (Auto) Lymph # (Auto) [place] # (Auto) Eos # (Auto) Baso # (Auto) Absolute Nucleated RBC Total Counted Band Neuts % (Manual) Reactive Lymphs % (Man) Abnorm Lymph % (Manual) Nucleated RBC % Neutrophils # (Manual) Lymphocytes # (Manual) Monocytes # (Manual) Eosinophils # (Manual) Basophils # (Manual) Differential Comment RBC Morph Micro Appear PT INR Sodium Potassium Chloride Carbon Dioxide Anion Gap BUN Creatinine Estimated GFR (MDRD) Glucose Lactic Acid Calcium Total Bilirubin AST ALT Alkaline Phosphatase Troponin I High Sens Total Protein Albumin Globulin Albumin/Globulin Ratio Lipase Urine Color DARK YELLOW Urine Clarity SL. CLOUDY Urine pH 7.5 Ur Specific [place] >=1.030 H Urine Protein 30 H Urine Glucose (UA) NEGATIVE Urine Ketones TRACE Urine Occult Blood NEGATIVE Urine Nitrite NEGATIVE Urine Bilirubin SMALL H Urine Urobilinogen 1 (NORMAL) Ur Leukocyte Esterase MODERATE H Urine RBC 0-5 Urine WBC >25 H Urine WBC Clumps PRESENT Ur Squamous Epith Cells RARE Squamous Urine Crystals 0-2 Calcium Oxalate Urine Bacteria Moderate H Urine Casts 0-2 Hyaline Casts Ur Microscopic Review INDICATED Urine Culture Comments INDICATED Nasal Adenovirus (PCR) NOT DETECTED Nasal B. parapertussis DNA (PCR) NOT DETECTED Nasal Coronavir 229E PCR NOT DETECTED Nasal Coronavir HKU1 PCR NOT DETECTED Nasal Coronavir NL63 PCR NOT DETECTED Nasal Coronavir OC43 PCR NOT DETECTED Nasal Enterovir/Rhinovir PCR NOT DETECTED Nasal Influenza B PCR NOT DETECTED Nasal Influenza A PCR NOT DETECTED Nasal Parainfluen 1 PCR NOT DETECTED Nasal Parainfluen 2 PCR NOT DETECTED Nasal Parainfluen 3 PCR NOT DETECTED Nasal Parainfluen 4 PCR NOT DETECTED Nasal RSV (PCR) NOT DETECTED Nasal B.pertussis DNA PCR NOT DETECTED Nasal C.pneumoniae (PCR) NOT DETECTED Pool Human Metapneumo PCR NOT DETECTED Nasal M.pneumoniae (PCR) NOT DETECTED Nasal SARS-CoV-2 (PCR) NOT DETECTED - Rads (name of study) Ct Chest- Fluid-filled esophagus and hiatal hernia related to SBO Relevant Findings:: Final report received, EMP independent interpretation of test CT A/P Relevant Findings:: Final report received, EMP independent interpretation of test PD Medical Decision Making - ED course ED course: 53-year-old woman with cerebral palsy and suprapubic catheter presents with bilateral side pain with decreased bowel movements. She has a distended but nontender abdomen and she does appear mildly encephalopathic and ill here. Workup in the emergency department demonstrates a white count 21,000, relatively unremarkable chemistries save mild hyponatremia. Her urinalysis is positive, that may just be chronic colonization, but probably will treat given her white count. She was sent over for CT of the chest and abdomen. On my "wet read" of this looks like she probably has an incarcerated right inguinal hernia causing a small bowel obstruction with distention of the small bowel up to the gastrum and even into a hiatal hernia. Subsequently reexamined the patient, the hernia is difficult to feel but I was able to palpate it and an attempt at reduction was made. Given her size it was not clear if the attempt at reduction was suc cessful or not and I proceeded to call our on-call surgeon, Dr. Gandhi who will come and see the patient. In the meantime it seems reasonable to do an NG tube given the dilatation of her stomach. Will also give her some more pain medication and work on the hernia bed again with Dr. Gandhi recommending a repeat pelvic CT after that to assess for reduction. Subsequently the repeat CT of the pelvis done to evaluate success of hernia reduction was done and I looked at it with Dr. Gandhi and the hernia is still incarcerated. Dr. Gandhi also reviewed some clinic notes noting that patient is ASA 3 multiple comorbidities including the cerebral palsy, cardiomyopathy with EF of 40%, and recommended transfer to a tertiary facility given her complexity. She is also had other abdominal surgeries including hysterectomy for menorrhagia, hiatal hernia repair, and . Accepted at 6:[address] Opal solis to [facility] in [place]. She would like the patient to go via an ED to ED transfer for expediency given the potential need for urgent surgery. Departure - Departure Disposition: 02 Transfer Acute Care Hosp Clinical Impression: Incarcerated right inguinal hernia, Small bowel obstruction, Neurogenic bladder Cerebral palsy Qualifiers: Cerebral palsy type: unspecified type Qualified Code(s): G80.9 - Cerebral palsy, unspecified Cardiomyopathy Qualifiers: Cardiomyopathy type: unspecified Qualified Code(s): I42.9 - Cardiomyopathy, unspecified Condition: Serious
[2023-11-23 12:22] LABS: BASOPHILS % (AUTO) 0.3 %; HCT - HEMATOCRIT 41.7 % (37.0-47.0); HGB - HEMOGLOBIN 12.7 g/dL (12.0-16.0); LYMPHOCYTES % (AUTO) 2.1 %; MEAN CORPUSCULAR HGB CONC 30.5 g/dL (32.0-36.0); MEAN CORPUSCULAR VOLUME 81.9 fL (81.0-99.0); MEAN PLATELET VOLUME 10.5 fL (7.9-10.8); MONOCYTES % (AUTO) 2.2 %; NEUTROPHILS % (AUTO) 94.7 %; PLT - PLATELET COUNT 363 10^3/uL (130-450); RED BLOOD COUNT 5.09 10^6/uL (4.20-5.40); RED CELL DISTRIBUTION WIDTH 14.8 % (12.0-15.0)
[2023-11-23 12:27] LABS: ABNORMAL LYMPHS % (MANUAL) 0 %; LYMPHOCYTES % (MANUAL) 0 %
[2023-11-23] MEDS: SODIUM CHLORIDE 0.9% 1,000 ML IV STA (12:48)
[2023-11-23] MEDS ORDERED: iohexoL-300 100 ML VIAL ONE (12:49)
[2023-11-23 13:01] LABS: INR 1.2 (0.8-1.2); PT - PROTHROMBIN TIME 13.5 secs (9.9-12.6)
[2023-11-23 13:04] LABS: BAND NEUTROPHILS % (MANUAL) 2 %; DIFFERENTIAL COMMENT MANUAL DIFFERENTIAL; EOSINOPHILS # (MANUAL) 0.2 10^3/uL (0-0.7); LYMPHOCYTES # (MANUAL) 0.2 10^3/uL (1.5-3.5); MONOCYTES # (MANUAL) 1.1 10^3/uL (0.0-1.0); NEUTROPHILS # (MANUAL) 19.5 10^3/uL (1.5-6.6); RBC MORPHOLOGY (MULTIPLE) 1+ ANISOCYTOSIS (NORMAL); REACTIVE LYMPHS % (MANUAL) 1 %
[2023-11-23] MEDS: ONDANSETRON 4 MG/2 ML VIAL IVP STA (13:09)
[2023-11-23 13:35] LABS: ALBUMIN 3.9 g/dL (3.2-5.5); ALBUMIN/GLOBULIN RATIO 1.1 (1.0-2.2); BILIRUBIN,TOTAL 0.3 mg/dL (0.2-1.0); CALCIUM 9.3 mg/dL (8.5-10.3); CREATININE 0.8 mg/dL (0.6-1.3); POTASSIUM 4.7 mmol/L (3.5-4.5); TOTAL PROTEIN 7.5 g/dL (6.4-8.9)
[2023-11-23 14:14] LABS: BILIRUBIN,URINE SMALL (NEGATIVE); CLARITY,URINE SL. CLOUDY (CLEAR); GLUCOSE, URINE (UA) NEGATIVE (NEGATIVE); KETONES,URINE (UA) TRACE mg/dL (NEGATIVE); LEUKOCYTE ESTERASE, URINE MODERATE (NEGATIVE); NITRITE,URINE NEGATIVE (NEGATIVE); OCCULT BLOOD,URINE NEGATIVE (NEGATIVE); PH,URINE 7.5 PH (5.0-7.5); PROTEIN,URINE 30 mg/dL (NEGATIVE); UROBILINOGEN,URINE 1 (NORMAL) E.U./dL (NORMAL)
[2023-11-23 14:32] LABS: BACTERIA,URINE Moderate /HPF (None Seen); CRYSTALS,URINE 0-2 Calcium Oxalate /LPF; RBC,URINE 0-5 /HPF (0-5); SQUAMOUS EPITHELIAL CELL,UR RARE Squamous (<= Few); WBC CLUMPS,URINE PRESENT; WBC,URINE >25 /HPF (0-5)
[2023-11-23] MEDS: HYDROmorphone 1 MG/ML CARPUJECT IVP STA ×3 (14:46→20:07)
[2023-11-23] MEDS: iohexoL-300 100 ML VIAL IVP ONE (14:46)
[2023-11-23] MEDS: cefTRIAXone 1 GM VIAL IVP STA (15:08)
--- NOTE | 2023-11-23 15:21 | CT Report ---
PROCEDURE: Chest W INDICATIONS: Chest and abdominal pain. IV only CONTRAST: Omnipaque 300 100ml TECHNIQUE: After the administration of intravenous contrast, a CT scan of the chest was performed. Images were recorded and evaluated at appropriate window settings. Reformats: axial MIP of the chest, coronal and sagittal. For radiation dose reduction, the following was used: automated exposure control, adjustme nt of mA and/or kV according to patient size. COMPARISON: CT abdomen pelvis 03/24/2024, chest x-ray 02/05/2023 FINDINGS: Image quality: Diagnostic. Chest wall and lower neck: No thyroid nodule which requires sonographic follow up. No axillary or sup raclavicular adenopathy by size. Lungs and pleura: No consolidation. No pleural effusions. No pneumothorax. No suspicious pulmonary n odules which require follow up. Mediastinum: Heart size is normal. No pericardial effusion. No large vessel abnormality. No mediastin al adenopathy by size criteria. Prominent hiatal hernia. The esophagus is fluid-filled and markedly distended to the level of thoracic inlet there is left to right midline shift of trachea as well as m ediastinal structures. Bones: No aggressive osseous abnormality. Upper Abdomen: Dilation of the stomach as well as small bowel loops incompletely visualized. IMPRESSION: Significantly prominent dilated fluid-filled esophagus extending to the level of thoracic inlet with enlarged hiatal hernia. Dilation of stomach and visualized small bowel loops are noted. Findings are suspected to be related to more distal small bowel obstruction. Please see CT abdomen pelvis report f or further details. Reviewed by: Christine Mantilla MD on 11/23/2023 3:20 PM PDT Approved by: Christine Mantilla MD on 11/23/2023 3:20 PM PDT Station ID: [id number]
--- NOTE | 2023-11-23 15:25 | CT Report ---
PROCEDURE: Abdomen/Pelvis W INDICATIONS: Chest and abdominal pain. IV only CONTRAST: Omnipaque 300 100ml TECHNIQUE: After the administration of intravenous contrast, a CT scan of the abdomen and pelvis was performed. Images were recorded and evaluated at appropriate window settings. Reformats: coronal and sagittal. F or radiation dose reduction, the following was used: automated exposure control, adjustment of mA and /or kV according to patient size. COMPARISON: CT chest 03/24/2024, CT abdomen pelvis 04/05/2023. FINDINGS: Image quality: Diagnostic. Lower chest: Unremarkable. Liver: No solid mass. Gallbladder and biliary tree: Unremarkable Spleen: No splenomegaly. Pancreas: No pancreatic ductal dilation. Adrenals: No adrenal nodule. Kidneys and ureters: No hydronephrosis. No renal cystic lesion which requires follow up. No solid mas s. Stomach, bowel and peritoneum: There is marked dilation of the stomach extending to the hiatal hernia into the visualized portions of the esophagus. Dilated fluid-filled small bowel loops are present wi thin the abdomen and pelvis with greatest AP dimension measuring 5 cm. Transition point appears to be within the right inguinal canal demonstrating inguinal hernia with herniated bowel loops. There is n o fluid or thickening of the bowel loops within the inguinal hernia to suggest incarceration or stran gulation. Lymph nodes: No central or retroperitoneal adenopathy. Vessels: No infrarenal aortic aneurysm. PELVIS Reproductive organs: Unremarkable. Bladder: Bladder is decompressed with a Epps catheter. Pelvic lymph nodes: No pelvic adenopathy by size criteria. Bones: No aggressive osseous abnormality. Other: No significant ventral or inguinal hernia. IMPRESSION: Small bowel obstruction secondary to right inguinal hernia causing dilated small bowel loops as well as more proximal distention of the stomach and esophagus. Reviewed by: Christine Mantilla MD on 11/23/2023 3:24 PM PDT Approved by: Christine Mantilla MD on 11/23/2023 3:24 PM PDT Station ID: [id number]
--- NOTE | 2023-11-23 16:26 | CT Report ---
PROCEDURE: Pelvis WO INDICATIONS: reeval hernia p reduction attempt TECHNIQUE: Noncontrast 3 mm axial sections acquired through the bony pelvis, with coronal and sagittal reformatt ing. For radiation dose reduction, the following was used: automated exposure control, adjustment of mA and/or kV according to patient size. COMPARISON: CT abdomen pelvis 03/24/2024 FINDINGS: Image quality: Excellent. Limited evaluation demonstrates persistence of dilated fluid-filled small bowel loops as well as smal l bowel within the right inguinal canal. Bladder is decompressed with a Epps catheter. IMPRESSION: Unchanged appearance of bowel containing left inguinal hernia and proximal partial small bowel obstru ction. If further evaluation is warranted after reduction attempts, ultrasound is recommended. Reviewed by: Christine Mantilla MD on 11/23/2023 4:24 PM PDT Approved by: Christine Mantilla MD on 11/23/2023 4:24 PM PDT Station ID: [id number]
[2023-11-23 16:38] VITALS: O2SAT 96
--- NOTE | 2023-11-23 16:46 | XRAY Report ---
PROCEDURE: No-Charge 1V Abdomen INDICATIONS: ng tube TECHNIQUE: 1 view of the abdomen were acquired. COMPARISON: Same day CT scan. FINDINGS: Surgical changes and devices: Enteric tube is seen coiled in the mediastinum with side-port projecti ng over the inferior mediastinum and tip projecting just below the diaphragm. Bowel: No pneumoperitoneum. Dilated loops of small bowel are seen.. Stool load within normal limits. Soft tissues: Contrast is seen within the collecting systems. No masses; visualized solid organ cont ours appear normal in size. No suspicious abdominal calcifications. Bones: No suspicious bony abnormalities. IMPRESSION: 1.NG tube with loop in the mediastinum and side-port projecting over the inferior mediastinum. Recomm end replacement. 2.Dilated loops of bowel are seen, consistent with obstruction as seen on CT scan. Reviewed by: Rony Pyle MD on 11/23/2023 4:45 PM PDT Approved by: Rony Pyle MD on 11/23/2023 4:45 PM PDT Station ID: [id number]
--- NOTE | 2023-11-23 17:26 | CONSULTATION NOTE ---
Referring Provider Name of Referring Provider:: ED (Dr. Houston) Consult Date: 11/23/23 (bowel obstruction) Chief Complaint - Chief Complaint Chief Complaint: "I feel terrible" History of Present Illness - History Obtained From Records Reviewed: yes History obtained from: chart, ED provider, patient Exam Limitations: patient received pain medication just prior to my visit - History of Present Illness HPI Comment/Other: 53 y/o F with significant PMH of cerebral palsy with wheelchair dependence, c ardiomyopathy with reduced EF (most recently about 40%), a neurogenic bladder with suprapubic catheter and frequent UTI's, HTN, GERD, obesity, bipolar disorder, asthma, mutiple surgeries for hiatal hernia, hysterectomy, L boen graft, and c section. She presents with a two day history of nausea and vomiting and one day history of bilateral lower rib and right groin pain. Her pain is sharp and constant in nature. She has not had a bowel movement in more than 4 days per her report. I have previous performed endoscopy on this patient and she appears somewhat slower to answer questions than she is at baseline though she is oriented x3 at the time of my interview. History - Past Medical History Cardiovascular: reports: Hypertension Respiratory: reports: Asthma, Other Neuro: reports: Cerebral palsy Endocrine/Autoimmune: reports: Other GI: reports: GERD, Colon polyps TECHNICAL COMMUNICATION TEACHER: reports: None : reports: Indwelling catheter, Kidney stones HEENT: reports: Chronic vision loss Psych: reports: Depression, Anxiety, Bipolar disorder, Post traumatic stress disorder Musculoskeletal: reports: Osteoarthritis, Other Derm: reports: Psoriasis MRSA Hx?: Yes - Past Surgical History General: reports: Gastric surgery, Hiatal hernia repair, EGD Ortho: reports: Other /TECHNICAL COMMUNICATION TEACHER: reports: section, Hysterectomy - Family & Social History Family History: Mother: Hypertension, Father: Hypertension, Brother: Alive and Well Family History Comment/Other: She was adopted Living Situation: With caregiver(s) Social History Notes: Patient does not drink alcohol. She quit smoking 20+ years ago. - Substance History Use: Uses substance without health or social issues: NONE - POLST Patient has POLST: No Meds/Allgy - Home Medications Home Medications: Ambulatory Orders Medication Instructions Recorded Confirmed Propranolol [Inderal] 20 mg PO TID 04/27/13 02/06/23 Enalapril [Vasotec] 5 mg ORAL BID 05/14/14 02/06/23 Citalopram Hydrobromide [Celexa] 10 mg PO DAILY 08/22/16 02/06/23 ARIPiprazole [Abilify] 20 mg PO DAILY 08/28/17 02/06/23 Meloxicam [Mobic] 15 mg PO DAILY 02/16/21 02/06/23 buPROPion [Wellbutrin Xl] 150 mg PO DAILY 02/16/21 02/06/23 Albuterol [Proventil Hfa] 2 puffs INH Q4H PRN 12/07/22 02/06/23 Lansoprazole [Prevacid] 30 mg PO QDAC 12/07/22 02/06/23 hydrOXYzine HCL [Hydroxyzine HCl] 25 mg PO DAILY PRN 12/07/22 02/06/23 ondansetron HCL [Ondansetron HCl] 8 mg PO Q8H PRN 12/07/22 02/06/23 Acetaminophen [Tylenol] 500 mg PO Q4HR PRN tab 12/10/22 02/06/23 Cod Liver Oil/Zinc Oxide [Desitin] 113 gm TOP PRN PRN each 12/10/22 02/06/23 cephALEXin [Keflex] 500 mg PO Q6H #28 cap 02/02/23 02/06/23 Ketoconazole [Nizoral A-D] 1 applic TOP Q3D 02/06/23 02/06/23 Vibegron [Gemtesa] 75 mg PO DAILY 02/06/23 02/06/23 Docusate Sodium 100Mg Capsule 100 mg PO BID #60 02/12/23 [Colace 100Mg Capsule] cephALEXin [Keflex] 500 mg PO Q6H #28 cap 03/08/23 cephALEXin [Keflex] 500 mg PO Q6H #40 cap 04/01/23 Bacitracin Zinc Oint 1 applic TOP BID #1 each 09/14/23 - Allergies Allergies/Adverse Reactions: Allergies Allergy/AdvReac Type Severity Reaction Status Date / Time phenazopyridine Allergy Unknown Verified 11/23/23 12:10 [From Pyridium] paroxetine HCl * [From Paxil] AdvReac Intermediate Emesis Verified 11/23/23 12:10 codeine [Codeine] AdvReac Pass Out Verified 11/23/23 12:10 trazodone AdvReac Rash Verified 11/23/23 12:10 Review of Systems - Constitutional Constitutional: reports: Other (Negative except for HPI and PMH.) Exam - Vital Signs Vital Signs: Vital Signs x48h Temp Pulse Resp BP Pulse Ox O2 Flow Rate 11/23/23 16:36 101 H 20 162/104 H 96 2 11/23/23 14:10 93 18 110/90 H 88 L 11/23/23 12:10 36.5 C 101 H 18 109/90 H 93 11/23/23 12:05 36.5 C 101 H 18 109/90 H 93 - Physical Exam General Appearance: positive: Mild distress (due to pain) Eyes Bilateral: positive: EOMI ENT: positive: Dry mucous membranes Neck: positive: Trachea midline Respiratory: positive: No respiratory distress Cardiovascular: positive: Tachycardia Peripheral Pulses: positive: 1+ Abdomen: positive: Tenderness (diffuse, mild). negative: No distention (somewhat distended though difficult to assess due to body habitus), Guarding, Rebound Skin: positive: No rash Extremities: positive: Other (chronic contractures) Neurologic/Psychiatric: positive: Oriented x3 Conclusion and Plan - Lab Results Laboratory Results 11/23/23 14:00: Urine Color DARK YELLOW, Urine Clarity SL. CLOUDY, Urine pH 7.5, Ur Specific [place] >=1.030 H, Urine Protein 30 H, Urine Glucose (UA) NEGATIVE, Urine Ketones TRACE, Urine Occult Blood NEGATIVE, Urine Nitrite NEGATIVE, Urine Bilirubin SMALL H, Urine Urobilinogen 1 (NORMAL), Ur Leukocyte Esterase MODERA TE H, Urine RBC 0-5, Urine WBC >25 H, Urine WBC Clumps PRESENT, Ur Squamous Epith Cells RARE Squamous, Urine Crystals 0-2 Calcium Oxalate, Urine Bacteria Moderate H, Urine Casts 0-2 Hyaline Casts, Ur Microscopic Review INDICATED, Urine Culture Comments INDICATED 11/23/23 13:13: Sodium 132 L, Potassium 4.7 H, Chloride 101, Carbon Dioxide 21, Anion Gap 10.0, BUN 25 H, Creatinine 0.8, Estimated GFR (MDRD) 75 L, Glucose 143 H, Calcium 9.3, Total Bilirubin 0.3, AST 10, ALT 7 L, Alkaline Phosphatase 85, Total Protein 7.5, Albumin 3.9, Globulin 3.6, Albumin/Globulin Ratio 1.1, Lipase 18 11/23/23 12:15: Troponin I High Sens < 2.3 L 11/23/23 12:15: Lactic Acid 1.0 11/23/23 12:15: Sodium Cancelled, Potassium Cancelled, Chloride Cancelled, Carbon Dioxide Cancelled, Anion Gap Cancelled, BUN Cancelled, Creatinine Cancelled, Estimated GFR (MDRD) Cancelled, Glucose Cancelled, Calcium Cancelled, Total Bilirubin Cancelled, AST Cancelled, ALT Cancelled, Alkaline Phosphatase Cancelled, Total Protein Cancelled, Albumin Cancelled, Globulin Cancelled, Albumin/Globulin Ratio Cancelled, Lipase Cancelled 11/23/23 12:15: PT 13.5 H, INR 1.2 11/23/23 12:15: WBC 21.0 H, RBC 5.09, Hgb 12.7, Hct 41.7, MCV 81.9, MCH 25.0 L, MCHC 30.5 L, RDW 14.8, Plt Count 363, MPV 10.5, Neut # (Auto) Not Reportable, Lymph # (Auto) Not Reportable, [place] # (Auto) Not Reportable, Eos # (Auto) Not Reportable, Baso # (Auto) Not Reportable, Absolute Nucleated RBC Not Reportable, Total Counted 100, Band Neuts % (Manual) 2, Reactive Lymphs % (Man) 1, Abnorm Lymph % (Manual) 0, Nucleated RBC % Not Reportable, Neutrophils # (Manual) 19.5 H, Lymphocytes # (Manual) 0.2 L, Monocytes # (Manual) 1.1 H, Eosinophils # (Manual) 0.2, Basophils # (Manual) 0.0, Differential Comment MANUAL DIFFERENTIAL, RBC Morph Micro Appear 1+ ANISOCYTOSIS - Diagnostic Imaging Results Diagnostic Imaging Results: positive: Final report reviewed, Read independently Diagnostic Imaging Results Comments: incarcerated right inguinal hernia causing small bowel obstruction. No free air. - Consultation Note Consultation Note: 53 y/o F with: 1. incarcerated R IH causing SBO - ED provider has attempted to reduce the hernia twice and patient would not like me to try again. Repeat pelvic CT demonstrates unsuccessful reduction. - WBC 21, lactate 1 - NG in place - The patient's medical and surgical complexity exceeds the resources of our [facility] and I recommend transfer to a higher level of care. 2. CP with severe mobility limitation, obesity, cardiomyopathy with reduced ejection fraction, HTN, GERD, biopolar disorder, asthma, neuropathy, neurogenic bladder, hiatal hernia (recurrent) - Each of these increase her risk for surgery above that of the average patient. The location of the hernia is high risk for infection and she is more likely than the average patient to require a prolonged length of stay. Thank you for consulting general surgery in the care of this patient.
[2023-11-23 17:37] LABS: B. PARAPERTUSSIS- RESP PCR PAN NOT DETECTED; B. PERTUSSIS- RESP PCR PANEL NOT DETECTED; C. PNEUMONIAE- RESP PCR PANEL NOT DETECTED; CORONAVIRUS 229E-RESP PCR NOT DETECTED; CORONAVIRUS HKU1-RESP PCR NOT DETECTED; CORONAVIRUS NL63-RESP PCR NOT DETECTED; CORONAVIRUS OC43-RESP PCR NOT DETECTED; HUMAN METAPNEUMOVIRUS NOT DETECTED; INFLUENZA A- RESP PCR PANEL NOT DETECTED; INFLUENZA B - RESP PCR PANEL NOT DETECTED; M. PNEUMONIAE- RESP PCR PANEL NOT DETECTED; PARAINFLUENZA VIRUS 1 NOT DETECTED; PARAINFLUENZA VIRUS 2 NOT DETECTED; PARAINFLUENZA VIRUS 3 NOT DETECTED; PARAINFLUENZA VIRUS 4 NOT DETECTED; RHINOVIRUS/ENTEROVIRUS NOT DETECTED; RSV- RESP PCR PANEL NOT DETECTED; SARS-CoV-2 -RESP PCR PANEL NOT DETECTED
[2023-11-23 18:10] VITALS: BP 145/78
== END 2023-11-23 20:30 | disposition short-term general hospital (02) ==
LOC: EDUNIT# → ED 11:57
DX: K40.30 Unilateral inguinal hernia, with obstruction, without gangrene, not specified as recurrent (principal); K56.609 Unspecified intestinal obstruction, unspecified as to partial versus complete obstruction; N31.2 Flaccid neuropathic bladder, not elsewhere classified; G80.9 Cerebral palsy, unspecified; I42.9 Cardiomyopathy, unspecified; I10 Essential (primary) hypertension; E66.9 Obesity, unspecified; Z68.41 Body mass index [BMI] 40.0-44.9, adult; Z79.899 Other long term (current) drug therapy; Z99.3 Dependence on wheelchair; Z87.891 Personal history of nicotine dependence
CPT/HCPCS: 36415; 71260; 72192; 74018; 74177; 80053; 81001; 83605; 83690; 84484; 85025; 85610; 87040; 87086; 87633; 93005; 96374; 96375; 96376; 99285; J1170; Q9967; 81003; 87077; 87181